=== PATIENT | female | born 1965 | race Caucasian/White ===

== ENCOUNTER 2016-11-13 14:07 | Emergency (ER) | payer SELFPAY ==
[~2016-11-13] VITALS: Ht 160 cm; Wt 76.2 kg
[~2016-11-13 14:07] MED LIST: ACYC200C PO; ALB0.5V IH; ALBU0.632 IH; ALBU2.5V4 IH; ALBUTEROL NEBULIZER; ALPR.25T PO; ALPR1T PO; ALPR1TAB7 PO; AMIT10TA6 PO; AMLO10TA2 PO; AMLO10TA4 PO; AMOX-355; ANTIDEPRESSANT; ARPZ20T PO; ATOR20TA66 PO; BLOOD PRESSURE PO; BUPR150T9 PO; CEPH500C PO; CHOL50003 PO; CIPR500T21 PO; CITA20TA4 PO; DESV100T PO; DOCU-143 PO; DULO60CA6 PO; FENO54TA PO; FRS325T PO; GABA-488 PO; HYDR-2890 PO; HYDR-3730 PO; HYDR-3812 PO; IBUP-1780 PO; LOSA25TA21 PO; LURA40TA PO; MAGN296S50 PO; MELA3TAB PO; METR500T PO; MOME13HF2 IH; NAPR220T76 PO; OMEP20TA7 PO; ONDA8TAB13 PO; PHEN100T17 PO; PROVENTIL INHALER; RT-ALBUINH IH; TRAZ-28 PO; VILA40TA PO; [UNRECOGNIZED DRUG - CODE]; [UNRECOGNIZED DRUG - OTHER]
[2016-11-13] MEDS ORDERED: NS IV 1000 ML 1,000 ML IV SCH (14:15)
[2016-11-13 14:21] LABS: BASOPHILS # (AUTO) 0.1 10^3/uL (0.0-0.1); BASOPHILS % (AUTO) 1 % (0-10); EOSINOPHILS # (AUTO) 0.4 10^3/uL (0.0-0.3); EOSINOPHILS % (AUTO) 3 % (0-10); LYMPHOCYTES # (AUTO) 3.6 X 10^3 (1.0-4.0); LYMPHOCYTES % (AUTO) 26 % (12-44); MEAN CORPUSCULAR HEMOGLOBIN 28 PG (25-34); MEAN CORPUSCULAR HGB CONC 33 G/DL (32-36); MEAN CORPUSCULAR VOLUME 83 FL (80-99); MEAN PLATELET VOLUME 9.6 FL (7.4-10.4); MONOCYTES # (AUTO) 0.9 X 10^3 (0.0-1.0); MONOCYTES % (AUTO) 7 % (0-12); NEUTROPHILS # (AUTO) 8.7 X 10^3 (1.8-7.8); NEUTROPHILS % (AUTO) 64 % (42-75); PLATELET COUNT 366 10^3/uL (130-400); RED BLOOD COUNT 5.64 10^6/uL (4.35-5.85); RED CELL DISTRIBUTION WIDTH 15.8 % (10.0-14.5); WHITE BLOOD COUNT 13.6 10^3/uL (4.3-11.0)
--- NOTE | 2016-11-13 14:28 | ED Psychosocial ---
General Stated Complaint: OVERDOSE Source: patient, EMS Exam Limitations: no limitations History of Present Illness Time seen by provider: 14:24 Initial Comments To ER crying and tearful with reports of an overdose as a suicide attempt last night. Patient states that she "doesn't want to be here anymore" and has felt this way for many months. She cannot elucidate any single factor that contributes to this. She denies any alcohol use. She states that she does have a history of depression and suicide attempt before. Last night, she took an unknown quantity (a handful) of atorvastatin, gabapentin, Combivent, possibly Benadryl. EMS was summoned by her friend. She does report that she's had a headache for several months. She states that her primary care provider has evaluated this but she has not had any CT or MRI. Timing/Duration: yesterday Severity: moderate Associated Symptoms: ingestion Allergies and Home Medications Allergies Coded Allergies: No Known Drug Allergies (Unverified , 01/31/16) Home Medications Albuterol Sulfate 6.7 Gm Hfa.aer.ad, 2 PUFF IH Q4H PRN for SHORTNESS OF BREATH, (Reported) Alprazolam 1 Mg Tablet, 1 MG PO BID PRN for ANXIETY, (Reported) Amlodipine Besylate 10 Mg Tablet, 10 MG PO HS, (Reported) Bupropion HCl 150 Mg Tablet.er, 300 MG PO DAILY, (Reported) Docusate Sodium 100 Mg Capsule, 100 MG PO BID, #60 Prescribed by: JOSE ANTONIO ORTIZ on 02/07/16 1038 Gabapentin 300 Mg Capsule, 300 MG PO TID, (Reported) TAKES 2 (300MG) CAPSULES Hydrocodone/Acetaminophen 1 Each Tablet, 1 TAB PO Q4H PRN, #30 Prescribed by: JOSE ANTONIO ORTIZ on 02/07/16 1038 Losartan Potassium 25 Mg Tablet, 25 MG PO BID, (Reported) Melatonin 3 Mg Tablet, 3 MG PO HS, (Reported) Mometasone/Formoterol 13 Gm Hfa.aer.ad, 1 PUFF IH DAILY PRN for SHORTNESS OF BREATH, (Reported) Omeprazole 20 Mg Tablet.dr, 20 MG PO DAILY, (Reported) [Albuterol Nebulizer] , (Reported) Constitutional: see HPI EENTM: see HPI Respiratory: no symptoms reported Cardiovascular: no symptoms reported Genitourinary: no symptoms reported Musculoskeletal: no symptoms reported Skin: no symptoms reported Psychiatric/Neurological: See HPI, Emotional Problems Past Hoyzdzi-Tbhvdz-Kslbmq Hx Patient Social History Type Used: Cigarettes Recent Hopitalizations: No Immunizations Up To Date Date of Pneumonia Vaccine: Apr 20, 2011 Seasonal Allergies Seasonal Allergies: No Surgeries HX Surgeries: Yes (5 surgeries left arm, SMALL BOWEL RESECTION) Surgeries: Abdominal, Gallbladder, Hysterectomy Respiratory Hx Respiratory Disorders: Yes Respiratory Disorders: COPD Cardiovascular Hx Cardiac Disorders: Yes Cardiac Disorders: Hypertension Neurological Hx Neurological Disorders: Yes Neurological Disorders: Headaches /Migraines Reproductive System Hx Reproductive Disorders: No Sexually Transmitted Disease: No HIV/AIDS: No Genitourinary Hx Genitourinary Disorders: No Gastrointestinal Hx Gastrointestinal Disorders: Yes (hernias) Gastrointestinal Disorders: Gastroesophageal Reflux Musculoskeletal Hx Musculoskeletal Disorders: Yes (RESTLESS LEG SYNDROME) Musculoskeletal Disorders: Arthritis, Chronic Back Pain Endocrine Hx Endocrine Disorders: No HEENT HX ENT Disorders: No (GLASSES, DENTURES) Loss of Vision: Bilateral Hearing Impairment: Denies Cancer Hx Cancer: No Psychosocial Hx Psychiatric Problems: Yes Behavioral Health Disorders: Depression Integumentary HX Skin/Integumentary Disorder: No Blood Transfusions Hx Blood Disorders: No Adverse Reaction to a Blood Tr: No Family Medical History Significant Family History: Cancer, Stroke, Vascular Disease Family Medial History: Asthma 19 FATHER G8 BROTHER G8 SISTER Completed stroke 19 FATHER Diabetes mellitus G8 SISTER FH: aneurysm 19 FATHER FH: stomach cancer 19 MOTHER FHx: drug dependence G8 BROTHER G8 SISTER Hypertension 19 FATHER 19 MOTHER Physical Exam Vital Signs Vital Sign - Last 12Hours 11/13/16 14:15 Temp 97.2 Pulse 92 Resp 10 B/P (MAP) 139/92 Pulse Ox 95 O2 Delivery Room Air Capillary Refill : General Appearance: WD/WN, no apparent distress HEENT: PERRL/EOMI, normal ENT inspection Neck: non-tender, full range of motion Respiratory: no respiratory distress, no accessory muscle use Cardiovascular: regular rate, rhythm, no murmur Gastrointestinal: normal bowel sounds, non tender, soft Extremities: normal range of motion, non-tender Neurologic/Psychiatric: alert, oriented x 3 Appearance/Memory: appropriate appearance, appropriate insight, disheveled Thoughts/Hallucinations: normal thought pattern, No delusions, No flight of ideas Skin: normal color, warm/dry Progress/Results/Core Measures Results/Orders Lab Results Laboratory Tests Test 11/13/16 14:10 11/13/16 16:00 Range/Units White Blood Count 13.6 H 4.3-11.0 10^3/uL Red Blood Count 5.64 4.35-5.85 10^6/uL Hemoglobin 15.5 11.5-16.0 G/DL Hematocrit 47 35-52 % Mean Corpuscular Volume 83 80-99 FL Mean Corpuscular Hemoglobin 28 25-34 PG Mean Corpuscular Hemoglobin Concent 33 32-36 G/DL Red Cell Distribution Width 15.8 H 10.0-14.5 % Platelet Count 366 130-400 10^3/uL Mean Platelet Volume 9.6 7.4-10.4 FL Neutrophils (%) (Auto) 64 42-75 % Lymphocytes (%) (Auto) 26 12-44 % Monocytes (%) (Auto) 7 0-12 % Eosinophils (%) (Auto) 3 0-10 % Basophils (%) (Auto) 1 0-10 % Neutrophils # (Auto) 8.7 H 1.8-7.8 X 10^3 Lymphocytes # (Auto) 3.6 1.0-4.0 X 10^3 Monocytes # (Auto) 0.9 0.0-1.0 X 10^3 Eosinophils # (Auto) 0.4 H 0.0-0.3 10^3/uL Basophils # (Auto) 0.1 0.0-0.1 10^3/uL Sodium Level 142 135-145 MMOL/L Potassium Level 3.8 3.6-5.0 MMOL/L Chloride Level 106 98-107 MMOL/L Carbon Dioxide Level 21 21-32 MMOL/L Anion Gap 15 H 5-14 MMOL/L Blood Urea Nitrogen 9 7-18 MG/DL Creatinine 0.67 0.60-1.30 MG/DL Estimat Glomerular Filtration Rate > 60 BUN/Creatinine Ratio 13 Glucose Level 107 H 70-105 MG/DL Calcium Level 9.9 8.5-10.1 MG/DL Total Bilirubin 0.3 0.1-1.0 MG/DL Aspartate Amino Transf (AST/SGOT) 15 5-34 U/L Alanine Aminotransferase (ALT/SGPT) 19 0-55 U/L Alkaline Phosphatase 78 40-136 U/L Total Protein 8.0 6.4-8.2 GM/DL Albumin 4.5 3.2-4.5 GM/DL Thyroid Stimulating Hormone (TSH) 1.50 0.35-4.94 UIU/ML Salicylates Level < 5.0 L 5.0-20.0 MG/DL Acetaminophen Level < 10 L 10-30 UG/ML Serum Alcohol 12 H <10 MG/DL Urine Color YELLOW Urine Clarity SLIGHTLY CLOUDY Urine pH 7 5-9 Urine Specific [place] 1.010 L 1.016-1.022 Urine Protein 1+ H NEGATIVE Urine Glucose (UA) NEGATIVE NEGATIVE Urine Ketones NEGATIVE NEGATIVE Urine Nitrite NEGATIVE NEGATIVE Urine Bilirubin NEGATIVE NEGATIVE Urine Urobilinogen NORMAL NORMAL MG/DL Urine Leukocyte Esterase NEGATIVE NEGATIVE Urine RBC (Auto) 1+ H NEGATIVE Urine RBC 2-5 H /HPF Urine WBC NONE /HPF Urine Squamous Epithelial Cells 0-2 /HPF Urine Crystals NONE /LPF Urine Bacteria TRACE /HPF Urine Casts NONE /LPF Urine Mucus NEGATIVE /LPF Urine Culture Indicated NO Urine Opiates Screen NEGATIVE NEGATIVE Urine Oxycodone Screen NEGATIVE NEGATIVE Urine Methadone Screen NEGATIVE NEGATIVE Urine Propoxyphene Screen NEGATIVE NEGATIVE Urine Barbiturates Screen NEGATIVE NEGATIVE Ur Tricyclic Antidepressants Screen NEGATIVE NEGATIVE Urine Phencyclidine Screen NEGATIVE NEGATIVE Urine Amphetamines Screen NEGATIVE NEGATIVE Urine Methamphetamines Screen NEGATIVE NEGATIVE Urine Benzodiazepines Screen NEGATIVE NEGATIVE Urine Cocaine Screen NEGATIVE NEGATIVE Urine Cannabinoids Screen NEGATIVE NEGATIVE My Orders Orders - YURIDIA OVERTON [employer] WORKER Cbc With Automated Diff (11/13/16 14:11) Comprehensive Metabolic Panel (11/13/16 14:11) Ua Culture If Indicated (11/13/16 14:11) Drug Screen Stat (Urine) (11/13/16 14:11) Acetaminophen (11/13/16 14:11) Alcohol (11/13/16 14:11) Ekg Tracing (11/13/16 14:11) Salicylate (11/13/16 14:11) Thyroid Stimulating Hormone (11/13/16 14:11) Ct Head Wo (11/13/16 14:11) Saline Lock/Iv-Start (11/13/16 14:11) Ns Iv 1000 Ml (Sodium Chloride 0.9%) (11/13/16 14:15) Ketorolac Injection (Toradol Injection) (11/13/16 16:45) Medications Given in ED Current Medications Medications Dose Ordered Sig/Ny Route Start Time Stop Time Status Last Admin Dose Admin Ketorolac Tromethamine 30 mg ONCE ONCE IVP 11/13/16 16:45 11/13/16 16:46 DC 11/13/16 17:00 30 MG Vital Signs/I&O Vital Sign - Last 12Hours 11/13/16 14:15 Temp 97.2 Pulse 92 Resp 10 B/P (MAP) 139/92 Pulse Ox 95 O2 Delivery Room Air Diagnostic Imaging Diagonstic Imaging: CT Comments NAME: BRANDEE GALDAMEZ [facility] REC#: [id number] PT STATUS: REG ER : 1965 PHYSICIAN: YURIDIA OVERTON APRN ADMIT DATE: 11/13/16/ER Draft Date of Exam:11/13/16 CT HEAD WO PROCEDURE: CT head without contrast. TECHNIQUE: Multiple contiguous axial images were obtained through the brain without the use of intravenous contrast. INDICATION: Headache for several months. CT HEAD: Multiple contiguous axial CT images of the head were obtained. FINDINGS: Ventricles and sulci are within normal limits for size. There is no intracranial hemorrhage identified. There is no abnormal mass effect or shift of midline structures. IMPRESSION: Unremarkable CT of the head. Dictated on workstation # [id number] Dict: 11/13/16 1439 Trans: 11/13/16 1443 [id number] Interpreted by: JELENA BRADEN MD Electronically signed by: Departure Communication Progress Notes 1632-[facility] does have inpatient female psych bed availability. The resident will call me back here in a bit. 183-Dr Acevedo psychiatric resident at [facility] accepts patient for transfer. 184-disharge with Harper Hopper and to [facility]. Impression Impression: Primary Impression: Depression Additional Impression: Suicide attempt Disposition: XF SHT-TRM HOSP Condition: Stable Departure-Patient Inst. Decision time for Depature: 16:32 Referrals: MARTY NAVAS DO (PCP) Primary Care Physician IOANA VILLATORO (Family) Primary Care Physician YURIDIA OVERTON APRN Nov 13, 2016 14:28
[2016-11-13 14:40] LABS: ALANINE AMINOTRANSFERASE 19 U/L (0-55); ALBUMIN 4.5 GM/DL (3.2-4.5); ALCOHOL 12 MG/DL (<10); ANION GAP 15 MMOL/L (5-14); ASPARTATE AMINO TRANSFERASE 15 U/L (5-34); BILIRUBIN,TOTAL 0.3 MG/DL (0.1-1.0); BLOOD UREA NITROGEN 9 MG/DL (7-18); BUN/CREATININE RATIO 13; CALCIUM 9.9 MG/DL (8.5-10.1); CARBON DIOXIDE 21 MMOL/L (21-32); CHLORIDE 106 MMOL/L (98-107); CREATININE SERUM 0.67 MG/DL (0.60-1.30); GFR ESTIMATED > 60; GLUCOSE 107 MG/DL (70-105); POTASSIUM 3.8 MMOL/L (3.6-5.0); SALICYLATE < 5.0 MG/DL (5.0-20.0); SODIUM 142 MMOL/L (135-145)
--- NOTE | 2016-11-13 14:44 | Diagnostic Imaging Report ---
PROCEDURE: CT head without contrast. TECHNIQUE: Multiple contiguous axial images were obtained through the brain without the use of intravenous contrast. INDICATION: Headache for several months. CT HEAD: Multiple contiguous axial CT images of the head were obtained. FINDINGS: Ventricles and sulci are within normal limits for size. There is no intracranial hemorrhage identified. There is no abnormal mass effect or shift of midline structures. IMPRESSION: Unremarkable CT of the head. Dictated by: Dictated on workstation # [id number]
[2016-11-13 14:51] LABS: ACETAMINOPHEN < 10 UG/ML (10-30)
[2016-11-13 16:06] LABS: BILIRUBIN,URINE NEGATIVE (NEGATIVE); KETONES,URINE NEGATIVE (NEGATIVE); LEUKOCYTE ESTERASE ,URINE NEGATIVE (NEGATIVE); NITRITE,URINE NEGATIVE (NEGATIVE); PH,URINE 7 (5-9); PROTEIN,URINE 1+ (NEGATIVE); UROBILINOGEN,URINE NORMAL (NORMAL)
[2016-11-13 16:14] LABS: SQUAMOUS EPITHELIAL CELL,UR 0-2 /HPF
[2016-11-13] MEDS ORDERED: KETOROLAC 30 MG/ML VIAL IVP ONE (16:45)
[2016-11-13 18:40] VITALS: BP 124/74
== END 2016-11-13 18:40 | disposition short-term general hospital (02) ==
LOC: EDUNIT# 14:07 → ER 14:08
DX: T42.6X2A Poisoning by other antiepileptic and sedative-hypnotic drugs, intentional self-harm, initial encounter (principal); T46.6X2A Poisoning by antihyperlipidemic and antiarteriosclerotic drugs, intentional self-harm, initial encounter; T48.6X2A Poisoning by antiasthmatics, intentional self-harm, initial encounter; F32.9 Major depressive disorder, single episode, unspecified; G25.81 Restless legs syndrome; M19.90 Unspecified osteoarthritis, unspecified site; K21.9 Gastro-esophageal reflux disease without esophagitis; G43.909 Migraine, unspecified, not intractable, without status migrainosus; J44.9 Chronic obstructive pulmonary disease, unspecified; I10 Essential (primary) hypertension; Z90.49 Acquired absence of other specified parts of digestive tract; Z90.710 Acquired absence of both cervix and uterus
CPT/HCPCS: 36415; 70450; 80053; 80306; 80320; 80329; 81000; 84443; 85025; 93005; 96361; 96374

== ENCOUNTER 2017-02-04 09:21 | Emergency (ER) | payer SELFPAY ==
[~2017-02-04] VITALS: Ht 157.5 cm; Wt 78.0 kg
--- OUTSIDE RECORDS SUMMARY | 2017-02-04 09:26 | XMS REPORT ---
Author Author IOANA VILLATORO [facility] eClinicalWorks Address Unknown Phone Unavailable Care Team Providers Care Executive Cyber Leader Name Role Phone IOANA VILLATORO Unavailable Allergies No Known Allergies Problems Problem Type Condition Code Onset Dates Condition Status Problem Insomnia G47.00 Active Problem Depression F32.9 Active Problem Torsion of intestine, bowel or colon K56.2 Active Problem Major depressive disorder, recurrent episode, moderate with anxious distress F33.1 Active Problem Anxiety F41.9 Active Problem COPD (chronic obstructive pulmonary disease) J44.9 Active Problem Restless legs G25.81 Active Problem Essential hypertension I10 Active Problem Constipation due to outlet dysfunction K59.02 Active Medications No Known Medications Results No Known Results Summary Purpose eClinicalWorks Submission
--- OUTSIDE RECORDS SUMMARY | 2017-02-04 09:27 | XMS REPORT ---
Author Author NILE MACEDO Organization [employer] Address Unknown Phone Unavailable Care Team Providers Care Mail Distribution Scheme Examiner Name Role Phone NILE MACEDO Unavailable Allergies No Known Allergies Problems Problem Type Condition Code Onset Dates Condition Status Problem Other and unspecified hyperlipidemia 272.4 Active Problem Other abnormal glucose 790.29 Active Problem Nausea with vomiting 787.01 Active Problem Candidiasis of vulva and vagina 112.1 Active Problem Pain in thoracic spine 724.1 Active Problem Depression, major, recurrent, moderate 296.32 Active Problem Counseling on substance use and abuse V65.42 Active Problem Polydipsia 783.5 Active Problem Influenza with other respiratory manifestations 487.1 Active Problem Essential hypertension, benign 401.1 Active Problem Acute gastritis without mention of hemorrhage 535.00 Active Problem Chronic airway obstruction, not elsewhere classified 496 Active Problem Headache 784.0 Active Problem Unspecified vitamin D deficiency 268.9 Active Problem Dehydration 276.51 Active Problem Unspecified iron deficiency anemia 280.9 Active Medications No Known Medications Results No Known Results Summary Purpose eClinicalWorks Submission
--- OUTSIDE RECORDS SUMMARY | 2017-02-04 09:28 | XMS REPORT ---
Author Author NILE MACEDO [facility] eClinicalWorks Address Unknown Phone Unavailable Care Team Providers Care Rectification Printer Name Role Phone NILE MACEDO Unavailable Allergies, Adverse Reactions, Alerts Substance Reaction Event Type N.K.D.A. Info Not Available Non Drug Allergy Problems Problem Type Condition Code Onset Dates [...] Active Problem Essential hypertension, benign 401.1 Active Assessment Recurrent major depression-severe F33.2 Active Assessment Generalized anxiety disorder F41.1 Active Problem Acute gastritis without mention of hemorrhage 535.00 Active Problem Chronic airway obstruction, not elsewhere classified 496 Active Problem Headache 784.0 Active Problem Unspecified vitamin D deficiency 268.9 Active Problem Dehydration 276.51 Active Problem Unspecified iron deficiency anemia 280.9 Active Medications Medication Code System Code Instructions Start Date End Date Status Dosage Albuterol Sulfate [facility] [address]-52 2.5 mg /3 mL (0.083 %) July 11, 2014 1 Each by Inhalation route every 4 hours for cough and wheeze PRN for wheezing or cough; Norvasc [facility] [address]-12 10 MG Orally Once a day 1 tablet Latuda [facility] [address]-44 20 MG Orally Once a day with food Feb 15, 2015 1 tablet with food Ibuprofen [facility] [address]-47 800 MG Orally Three times a day PRN Jan 25, 2015 1 tablet ProAir HFA [facility] [address]-78 90 mcg/actuation Apr 24, 2014 inhale 2 puffs by Inhalation route every 4 hours as needed PRN shortness of breath/ cough Melatonin [facility] [address]-19 3 MG Orally Once a day 1 tablet at bedtime as needed with food Cymbalta [facility] [address]-89 60 MG Orally Once a day 2 capsule2 Zithromax [facility] [address]-23 250 MG Orally Once a day Feb 12, 2015 Feb 17, 2015 2 tablets on the first day, then 1 tablet daily for 4 days Dulera [facility] [address]-83 100-5 mcg/actuation August 17, 2012 2 puffs by Inhalation route 2 times per day Xanax [facility] [address]-66 1 MG Orally 2 times a day PRN anxiety Mar 30, 2014 1 tablet Procedures Procedure Coding System Code Date MH Office Visit, Est Pt., Level 3 CPT-4 55564 Feb 15, 2015 Vital Signs Date/Time: Feb 15, 2015 Cardiac Monitoring Heart Rate 96 bpm Weight 181.7 lbs Height 62 in BMI 33.23 Index Blood Pressure Diastolic 84 mmHg Blood Pressure Systolic 122 mmHg Results No Known Results Summary Purpose eClinicalWorks Submission
--- OUTSIDE RECORDS SUMMARY | 2017-02-04 09:28 | XMS REPORT ---
Author Author SHAUNA IOANA Organization [facility] Address [address] [place] [address] Care Team Providers Care Pharmacy Technician Instructor Name Role Phone IOANA VILLATORO Unavailable PROBLEMS Type Condition ICD9-CM Code [id number] Code Onset Dates Condition Status SNOMED Code Problem Depression F32.9 Active 86663067 Problem Restless legs G25.81 Active 92156699 Problem Insomnia G47.00 Active 731176417 Assessment Gastroesophageal reflux disease without esophagitis K21.9 Dec, Active 264254185 Assessment Essential hypertension I10 Dec, Active 83863612 Problem Anxiety F41.9 Active 52874173 Problem Torsion of intestine, bowel or colon K56.2 Active 184953 Problem Constipation due to outlet dysfunction K59.02 Active 50666868 Problem COPD (chronic obstructive pulmonary disease) J44.9 Active 58115792 Problem Major depressive disorder, recurrent episode, moderate with anxious distress F33.1 Active 699536965 Problem Essential hypertension I10 Active 77974025 ALLERGIES Substance Reaction Event Type Date Status N.K.D.A. Unknown Non Drug Allergy Dec, Unknown SOCIAL HISTORY No smoking Hx information available PLAN OF CARE VITAL SIGNS Height 62 in 2015-12-27 Weight 175.2 lbs 2015-12-27 Heart Rate 96 bpm 2015-12-27 Respiratory Rate 22 2015-12-27 BMI 32.04 kg/m2 2015-12-27 Blood pressure systolic 177 mmHg 2015-12-27 Blood pressure diastolic 106 mmHg 2015-12-27 MEDICATIONS Medication Instructions Dosage Frequency Start Date End Date Duration Status Albuterol Sulfate 2.5 mg /3 mL (0.083 %) 1 Each by Inhalation route every 4 hours for cough and wheeze PRN for wheezing or cough; Jun, Active ProAir HFA 90 mcg/actuation inhale 2 puffs by Inhalation route every 4 hours as needed PRN shortness of breath/cough Apr, Active Ibuprofen 800 MG Orally Three times a day PRN 1 tablet Active Melatonin 3 MG Orally Once a day 1 tablet at bedtime as needed with food 24h Active Wellbutrin SR 150 MG Orally once a day for one week and then twice a day thereafter 1 tablet Dec, 30 day(s) Active Fleet Enema 7-19 GM/118ML as directed August, Active Norvasc 10 MG Orally Once a day 1 tablet 24h Active Dulera 100-5 mcg/actuation 2 puffs by Inhalation route 2 times per day Jul, Active Losartan Potassium 50 mg Orally Once a day 2 tablet 24h Dec, 30 day(s) Active Omeprazole 20 mg Orally twice a day 1 capsule 12h Active Xanax 1 MG Orally 2 times a day PRN anxiety 1 tablet Mar, Active Gabapentin 300 MG Orally Three times a day 1 capsule 8h May, Active RESULTS No Results PROCEDURES Procedure Date Ordered Related Diagnosis Body Site Office Visit, Est Pt., Level 4 Dec 27, 2015 IMMUNIZATIONS No Known Immunizations
--- OUTSIDE RECORDS SUMMARY | 2017-02-04 09:28 | XMS REPORT ---
Author Author SANNA SAUL Organization [employer] Address Unknown Phone Unavailable Care Team Providers Care Janitor Name Role Phone SANNA SAUL CP Unavailable Allergies No Known Allergies Problems Problem Type Condition Code Onset Dates Condition Status Problem Counseling on substance use and abuse V65.42 Active Problem Influenza with other respiratory manifestations 487.1 Active Problem Essential hypertension, benign 401.1 Active Problem Restless legs G25.81 Active Problem Insomnia G47.00 Active Problem COPD (chronic obstructive pulmonary disease) J44.9 Active Problem Candidiasis of vulva and vagina 112.1 Active Problem Pain in thoracic spine 724.1 Active Problem Depression F32.9 Active Problem Depression, major, recurrent, moderate 296.32 Active Problem Acute gastritis without mention of hemorrhage 535.00 Active Problem Chronic airway obstruction, not elsewhere classified 496 Active Problem Headache 784.0 Active Problem Dehydration 276.51 Active Problem Other and unspecified hyperlipidemia 272.4 Active Problem Nausea with vomiting 787.01 Active Problem Unspecified vitamin D deficiency 268.9 Active Problem Other abnormal glucose 790.29 Active Problem Unspecified iron deficiency anemia 280.9 Active Problem Polydipsia 783.5 Active Medications No Known Medications Results No Known Results Summary Purpose eClinicalWorks Submission
--- OUTSIDE RECORDS SUMMARY | 2017-02-04 09:28 | XMS REPORT ---
Author Author NILE MACEDO Organization [employer] Address Unknown Phone Unavailable Care Team Providers Care Cook Apprentice Name Role Phone NILE MACEDO Unavailable Allergies [...] Instructions Start Date End Date Status Dosage Xanax [facility] [address]-47 1 MG Orally 2 times a day PRN anxiety Mar 30, 2014 1 tablet Results No Known Results Summary Purpose eClinicalWorks Submission
--- OUTSIDE RECORDS SUMMARY | 2017-02-04 09:28 | XMS REPORT ---
Author Author SANNA SAUL [facility] eClinicalWorks Address Unknown Phone Unavailable Care Team Providers Care Diving Instructor Name Role Phone SANNA SAUL CP Unavailable Allergies, Adverse Reactions, Alerts Substance Reaction Event Type N.K.D.A. Info Not Available Non Drug Allergy Problems Problem Type Condition Code Onset Dates Condition Status Problem Counseling on substance use and abuse V65.42 Active Problem Influenza with other respiratory manifestations 487.1 Active Problem Essential hypertension, benign 401.1 Active Problem Restless legs G25.81 Active Assessment Recurrent major depression-severe F33.2 Active Problem Insomnia G47.00 Active Problem COPD [...] 280.9 Active Problem Polydipsia 783.5 Active Medications Medication Code System Code Instructions Start Date End Date Status Dosage Gabapentin [facility] [address]-96 300 MG Orally 2 times a day Mar 19, 2015 1 capsule Ibuprofen [facility] 68426626186 800 MG Orally Three times a day PRN 1 tablet Atorvastatin Calcium [facility] [address]-71 20 MG Orally Once a day Feb 23, 2015 1 tablet Xanax [facility] [address]-03 1 MG Orally 2 times a day PRN anxiety Mar 30, 2014 1 tablet Melatonin [facility] [address]-83 3 MG Orally Once a day 1 tablet at bedtime as needed with food ProAir HFA [facility] [address]-89 90 mcg/actuation Apr 24, 2014 inhale 2 puffs by Inhalation route every 4 hours as needed PRN shortness of breath/ cough Norvasc [facility] [address]-13 10 MG Orally Once a day 1 tablet Cymbalta [facility] [address]-39 60 MG Orally Once a day 2 capsule2 Latuda [facility] [address]-00 20 MG Orally Once a day with food Feb 15, 2015 1 tablet with food Dulera [facility] [address]-80 100-5 mcg/actuation August 17, 2012 2 puffs by Inhalation route 2 times per day Albuterol Sulfate [facility] [address]-34 2.5 mg /3 mL (0.083 %) July 11, 2014 1 Each by Inhalation route every 4 hours for cough and wheeze PRN for wheezing or cough; Procedures Procedure Coding System Code Date MH Office Visit, Est Pt., Level 4 CPT-4 80333 Mar 19, 2015 Vital Signs Date/Time: Mar 19, 2015 Blood Pressure Systolic 110 mmHg Weight 185 lbs Height 62 in BMI 33.83 Index Blood Pressure Diastolic 80 mmHg Results No Known Results Summary Purpose eClinicalWorks Submission
--- OUTSIDE RECORDS SUMMARY | 2017-02-04 09:28 | XMS REPORT ---
Author Author LYNN SOTO [facility] Address [address] [place] [address] Care Team Providers Care Integrity Specialist Name Role Phone LYNN SOTO Unavailable PROBLEMS Type Condition ICD9-CM Code YIS91-MC Code Onset Dates Condition Status SNOMED Code Problem Depression F32.9 Active 30546350 Assessment Major depressive disorder, recurrent episode, moderate with anxious distress F33.1 Dec, Active 582616791 Problem Major depressive disorder, recurrent episode, moderate with anxious distress F33.1 Active 736150697 Problem Essential hypertension I10 Active 08092543 Problem Restless legs G25.81 Active 68214236 Problem Insomnia G47.00 Active 755213073 Problem Constipation due to outlet dysfunction K59.02 Active 32170045 Problem COPD (chronic obstructive pulmonary disease) J44.9 Active 85262481 ALLERGIES Unknown Allergies SOCIAL HISTORY No smoking Hx information available PLAN OF CARE VITAL SIGNS MEDICATIONS Unknown Medications RESULTS No Results PROCEDURES Procedure Date Ordered Related Diagnosis Body Site Psychotherapy, patient &/family, 30 minutes, established patient Dec 26, 2015 IMMUNIZATIONS No Known Immunizations
--- OUTSIDE RECORDS SUMMARY | 2017-02-04 09:28 | XMS REPORT ---
Author IOANA Hays [facility] eClinicalWorks Address Unknown Phone Unavailable Care Team Providers Care Buyer Tobacco Head Name Role Phone IOANA VILLATORO CP Unavailable Allergies, Adverse Reactions, Alerts Substance Reaction Event Type N.K.D.A. Info Not Available Non Drug Allergy Problems Problem Type Condition Code Onset Dates Condition Status Problem Other abnormal glucose 790.29 Active Assessment HTN (hypertension) I10 Active Problem Polydipsia 783.5 Active Assessment Depression F32.9 Active Problem Counseling on substance use and abuse V65.42 Active Problem Influenza with other respiratory manifestations 487.1 Active Problem Essential hypertension, benign 401.1 Active Problem Restless legs G25.81 Active Problem Insomnia G47.00 Active Assessment COPD (chronic obstructive pulmonary disease) J44.9 Active Assessment Restless legs G25.81 Active Problem COPD (chronic obstructive pulmonary disease) J44.9 Active Assessment Insomnia G47.00 Active Problem Candidiasis of vulva and vagina [...] Unspecified vitamin D deficiency 268.9 Active Problem Unspecified iron deficiency anemia 280.9 Active Medications Medication Code System Code Instructions Start Date End Date Status Dosage Latuda [facility] [address]-29 20 MG Orally Once a day with food Feb 15, 2015 1 tablet with food Albuterol Sulfate [facility] [address]-81 2.5 mg /3 mL (0.083 %) July 11, 2014 1 Each by Inhalation route every 4 hours for cough and wheeze PRN for wheezing or cough; Melatonin [facility] [address]-54 3 MG Orally Once a day 1 tablet at bedtime as needed with food Xanax [facility] [address]-25 1 MG Orally 2 times a day PRN anxiety Mar 30, 2014 1 tablet Norvasc [facility] [address]-47 10 MG Orally Once a day 1 tablet Ibuprofen [facility] [address]-34 800 MG Orally Three times a day PRN Jan 25, 2015 1 tablet Dulera [facility] [address]-43 100-5 mcg/actuation August 17, 2012 2 puffs by Inhalation route 2 times per day Cymbalta [facility] [address]-00 60 MG Orally Once a day 2 capsule2 ProAir HFA [facility] [address]-23 90 mcg/actuation Apr 24, 2014 inhale 2 puffs by Inhalation route every 4 hours as needed PRN shortness of breath/ cough Procedures Procedure Coding System Code Date COMPREHEN METABOLIC PANEL CPT-4 28342 Feb 22, 2015 ASSAY THYROID STIM HORMONE CPT-4 47641 Feb 22, 2015 COMPLETE CBC W/AUTO DIFF WBC CPT-4 61592 Feb 22, 2015 Office Visit, Est Pt., Level 4 CPT-4 44483 Feb 22, 2015 LIPID PANEL CPT-4 20521 Feb 22, 2015 VENIPUNCT, ROUTINE* CPT-4 62601 Feb 22, 2015 Vital Signs Date/Time: Feb 22, 2015 Temperature 98.0 F Weight 179 lbs Height 62 in BMI 32.74 Index Blood Pressure Diastolic 78 mmHg Blood Pressure Systolic 124 mmHg Cardiac Monitoring Heart Rate 80 bpm Results Name Result Date Reference Range Unit Abnormality Flag CBC ROUTINE VENIPUNCTURE TSH ----TSH 1.320 [id number] 0.450-4.500 uIU/mL Summary Purpose eClinicalWorks Submission
--- OUTSIDE RECORDS SUMMARY | 2017-02-04 09:29 | XMS REPORT ---
Author IOANA [facility]ays [facility] [employer]ClinicalWorks Address Unknown Phone Unavailable Care Team Providers Care Health Care Facilities Inspector Name Role Phone IOANA VILLATORO Unavailable Allergies No Known Allergies Problems Problem Type Condition Code Onset Dates Condition Status Problem Restless legs G25.81 Active Problem Insomnia G47.00 Active Problem COPD (chronic obstructive pulmonary disease) J44.9 Active Problem Depression F32.9 Active Problem Depression, major, recurrent, moderate 296.32 Active Medications No Known Medications Results No Known Results Summary Purpose eClinicalWorks Submission
--- OUTSIDE RECORDS SUMMARY | 2017-02-04 09:29 | XMS REPORT ---
Author NESTOR [facility] eClinicalWorks Address Unknown Phone Unavailable Care Team Providers Care Printer Small Print Shop Name Role Phone NESTOR BLAIR Unavailable Allergies, Adverse Reactions, Alerts Substance Reaction [...] Problem Essential hypertension, benign 401.1 Active Assessment Low back pain M54.5 Active Assessment Shoulder pain, right M25.511 Active Problem Acute gastritis without mention of hemorrhage 535.00 Active Problem Chronic airway obstruction, not elsewhere classified 496 Active Problem Headache 784.0 Active Problem Unspecified vitamin D deficiency 268.9 Active Problem Dehydration 276.51 Active Problem Unspecified iron deficiency anemia 280.9 Active Medications Medication Code System Code Instructions Start Date End Date Status Dosage Melatonin [facility] [address]-29 3 MG Orally Once a day 1 tablet at bedtime as needed with food Cymbalta [facility] [address]-70 60 MG Orally Once a day 2 capsule2 Ibuprofen [facility] [address]-80 800 MG Orally Three times a day PRN Jan 25, 2015 1 tablet Dulera [facility] [address]-90 100-5 mcg/actuation August 17, 2012 2 puffs by Inhalation route 2 times per day Albuterol Sulfate [facility] [address]-93 2.5 mg /3 mL (0.083 %) July 11, 2014 1 Each by Inhalation route every 4 hours for cough and wheeze PRN for wheezing or cough; ProAir HFA [facility] [address]-05 90 mcg/actuation Apr 24, 2014 inhale 2 puffs by Inhalation route every 4 hours as needed PRN shortness of breath/ cough Xanax [facility] [address]-18 1 MG Orally 2 times a day PRN anxiety Mar 30, 2014 1 tablet Cyclobenzaprine HCl [facility] [address]-63 5 MG Orally 2 times a day PRN JanFeb 01, 2015 1 tablet Norvasc [facility] [address]-99 10 MG Orally Once a day 1 tablet Procedures Procedure Coding System Code Date X-RAY EXAM OF SHOULDER CPT-4 24768 Jan 25, 2015 Office Visit, Est Pt., Level 4 CPT-4 94690 Jan 25, 2015 X-RAY EXAM OF LOWER SPINE CPT-4 92402 Jan 25, 2015 Vital Signs Date/Time: Jan 25, 2015 Cardiac Monitoring Heart Rate 88 bpm Weight 180.9 lbs Height 62 in BMI 33.08 Index Blood Pressure Diastolic 84 mmHg Blood Pressure Systolic 116 mmHg Results No Known Results Summary Purpose eClinicalWorks Submission
--- OUTSIDE RECORDS SUMMARY | 2017-02-04 09:29 | XMS REPORT ---
Author Author IOANA VILLATORO Organization [facility] Address [address] [place] [address] Care Team Providers Care Chucking Lathe Operator Name Role Phone KAL VILLATOROE Unavailable PROBLEMS Type Condition ICD9-CM Code [id number] Code Onset Dates Condition Status SNOMED Code Problem Constipation due to outlet dysfunction K59.02 Active 91716600 Problem Major depressive disorder, recurrent episode, moderate with anxious distress F33.1 Active 207733679 Problem Essential hypertension I10 Active 28383295 Problem Insomnia G47.00 Active 151745062 Problem COPD (chronic obstructive pulmonary disease) J44.9 Active 12326438 Problem Depression F32.9 Active 77893382 Problem Restless legs G25.81 Active 88020625 Problem Generalized anxiety disorder F41.1 Active 05809112 Problem Psychophysiological insomnia F51.04 Active 174144620 Problem Anxiety F41.9 Active 51171256 Problem Torsion of intestine, bowel or colon K56.2 Active 216707 Problem Severe episode of recurrent major depressive disorder, without psychotic features F33.2 Active 06544968 Problem Gastroesophageal reflux disease with esophagitis K21.0 Active 288134767 ALLERGIES No Known Allergies SOCIAL HISTORY Never Assessed PLAN OF CARE Activity Details Follow Up 3 Months Reason:abdominal pain depression, htn VITAL SIGNS Height 62 in 2016-06-02 Weight 168 lbs 2016-06-02 Temperature 97.9 degrees Fahrenheit 2016-06-02 Heart Rate 90 bpm 2016-06-02 Respiratory Rate 18 2016-06-02 BMI 30.72 kg/m2 2016-06-02 Blood pressure systolic 140 mmHg 2016-06-02 Blood pressure diastolic 80 mmHg 2016-06-02 MEDICATIONS Medication Instructions Dosage Frequency Start Date End Date Duration Status Albuterol Sulfate 2.5 mg /3 mL (0.083 %) 1 Each by Inhalation route every 4 hours for cough and wheeze PRN for wheezing or cough; Jun, Active Cymbalta 60 mg Orally Once a day 1 capsule 24h May, 30 day(s) Active Gabapentin 300 MG Orally Three times a day 1 capsule 8h May, Active ProAir HFA 90 mcg/actuation inhale 2 puffs by Inhalation route every 4 hours as needed PRN shortness of breath/cough Apr, Active Atorvastatin Calcium 10 mg Orally Once a day 1 tablet 24h May, 90 days Active Omeprazole 20 mg Orally twice a day 1 capsule 12h Active Melatonin 3 MG Orally Once a day 1 tablet at bedtime as needed with food 24h Active Ibuprofen 800 MG Orally Three times a day PRN 1 tablet Active Dulera 100-5 mcg/actuation 2 puffs by Inhalation route 2 times per day Jul, Active Xanax 1 MG Orally 2 times a day PRN anxiety 1 tablet Mar, Active Wellbutrin SR 150 MG Orally once a day for one week and then twice a day thereafter 1 tablet Dec, Active MiraLax 17 gm/dose as directed May, Active Losartan Potassium 50 mg Orally Once a day 1tablet 24h Dec, Active RESULTS Name Result Date Reference Range CBC 2016-06-02 WBC 7.5 3.4-10.8 RBC 5.39 3.77-5.28 Hemoglobin 14.3 11.1-15.9 Hematocrit 42.4 34.0-46.6 MCV 79 79-97 MCH 26.5 26.6-33.0 MCHC 33.7 31.5-35.7 RDW 17.0 12.3-15.4 Platelets 321 150-379 Neutrophils 60 Lymphs 28 Monocytes 6 Eos 5 Basos 1 Neutrophils (Absolute) 4.6 1.4-7.0 Lymphs (Absolute) 2.1 0.7-3.1 Monocytes(Absolute) 0.4 0.1-0.9 Eos (Absolute) 0.4 0.0-0.4 Baso (Absolute) 0.0 0.0-0.2 Immature Granulocytes 0 Immature Grans (Abs) 0.0 0.0-0.1 LIPID PANEL 2016-06-02 Cholesterol, Total 178 100-199 Triglycerides 254 0-149 HDL Cholesterol 32 >39 VLDL Cholesterol Jaylon 51 5-40 LDL Cholesterol Calc 95 0-99 Comment: CMP 2016-06-02 Glucose, Serum 89 65-99 BUN 8 6-24 Creatinine, Serum 0.50 0.57-1.00 eGFR If NonAfricn Am 112 >59 eGFR If Africn Am 130 >59 BUN/Creatinine Ratio 16 9-23 Sodium, Serum 142 134-144 Potassium, Serum 4.3 3.5-5.2 Chloride, Serum 98 96-106 Carbon Dioxide, Total 25 18-29 Calcium, Serum 9.9 8.7-10.2 Protein, Total, Serum 6.9 6.0-8.5 Albumin, Serum 4.3 3.5-5.5 Globulin, Total 2.6 1.5-4.5 A/G Ratio 1.7 1.1-2.5 Bilirubin, Total 0.2 0.0-1.2 Alkaline Phosphatase, S 76 39-117 AST (SGOT) 12 0-40 ALT (SGPT) 15 0-32 Xray : KUB (IN HOUSE) 2016-06-02 PROCEDURES Procedure Date Ordered Result Body Site X-RAY EXAM OF ABDOMEN Jun 02, 2016 COMPLETE CBC W/AUTO DIFF WBC Jun 02, 2016 LIPID PANEL Jun 02, 2016 COMPREHEN METABOLIC PANEL Jun 02, 2016 VENIPUNCT, ROUTINE* Jun 02, 2016 IMMUNIZATIONS No Known Immunizations MEDICAL (GENERAL) HISTORY Type Description Date Medical History COPD Medical History Asthma Medical History Restless leg syndrome Medical History Major depressive disorder, single episode, unspecified Surgical History hysterectomy Surgical History orthopedic surgery left wrist x5 Surgical History cholecystectomy Surgical History Laproscopy 05/2015 Surgical History bowel resection 06/2015 Hospitalization History pneumonia Hospitalization History Surgery(s) Hospitalization History Holder Unit s/p overdose 11/14/16
--- OUTSIDE RECORDS SUMMARY | 2017-02-04 09:29 | XMS REPORT ---
Author Author IOANA VILLATORO Organization [facility] Address [address] [place] [address] Care Team Providers Care Manager Project Name Role Phone KAL VILLATOROE Unavailable PROBLEMS Type Condition ICD9-CM Code [id number] Code Onset Dates Condition Status SNOMED Code Problem Constipation due to outlet dysfunction K59.02 Active 42258549 Problem Major depressive disorder, recurrent episode, moderate with anxious distress F33.1 Active 390126830 Problem Essential hypertension I10 Active 90790877 Problem Insomnia G47.00 Active 289407237 Problem COPD (chronic obstructive pulmonary disease) J44.9 Active 92241869 Problem Depression F32.9 Active 12279010 Problem Restless legs G25.81 Active 67791077 Problem Generalized anxiety disorder F41.1 Active 47560092 Problem Psychophysiological insomnia F51.04 Active 588241163 Problem Anxiety F41.9 Active 05545043 Problem Torsion of intestine, bowel or colon K56.2 Active 565184 Problem Severe episode of recurrent major depressive disorder, without psychotic features F33.2 Active 06962850 Problem Gastroesophageal reflux disease with esophagitis K21.0 Active 952790818 ALLERGIES No Information SOCIAL HISTORY Never Assessed PLAN OF CARE VITAL SIGNS MEDICATIONS Medication Instructions Dosage Frequency Start Date End Date Duration Status Xanax 1 MG Orally 2 times a day PRN anxiety 1 tablet 11 Mar, 2014 28 days Active Omeprazole 20 mg Orally twice a day 1 capsule 12h 28 days Active RESULTS No Results PROCEDURES No Known procedures IMMUNIZATIONS No Known Immunizations MEDICAL (GENERAL) HISTORY [...]
--- OUTSIDE RECORDS SUMMARY | 2017-02-04 09:29 | XMS REPORT ---
Author IOANA Hays Organization eClinicalWorks Address Unknown Phone Unavailable Care Team Providers Care Medical Record Specialist Name Role Phone IOANA VILLATORO CP Unavailable Allergies No Known Allergies Problems Problem Type Condition Code Onset Dates Condition Status Problem Counseling on substance use and abuse V65.42 Active Problem Influenza with other respiratory manifestations 487.1 Active Problem Essential hypertension, benign 401.1 Active Problem Restless legs G25.81 Active Assessment Hyperlipemia E78.5 Active Problem Insomnia G47.00 Active Assessment High blood pressure I10 Active Problem COPD (chronic obstructive pulmonary disease) [...] Instructions Start Date End Date Status Dosage Atorvastatin Calcium [facility] [address]-98 20 MG Orally Once a day Feb 23, 2015 1 tablet Results No Known Results Summary Purpose eClinicalWorks Submission
--- OUTSIDE RECORDS SUMMARY | 2017-02-04 09:29 | XMS REPORT ---
Author JOMAR Tamez [facility] eClinicalWorks Address Unknown Phone Unavailable Care Team Providers Care Plant Safety Engineer Name Role Phone JOMAR FAGAN CP Unavailable Allergies, Adverse Reactions, Alerts Substance [...] Problem Essential hypertension, benign 401.1 Active Assessment Bronchitis J40 Active Problem Acute gastritis without mention of hemorrhage 535.00 Active Problem Chronic airway obstruction, not elsewhere classified 496 Active Problem Headache 784.0 Active Problem Unspecified vitamin D deficiency 268.9 Active Problem Dehydration 276.51 Active Problem Unspecified iron deficiency anemia 280.9 Active Medications Medication Code System Code Instructions Start Date End Date Status Dosage ProAir HFA [facility] [address]-28 90 mcg/actuation Apr 24, 2014 inhale 2 puffs by Inhalation route every 4 hours as needed PRN shortness of breath/ cough Norvasc [facility] [address]-43 10 MG Orally Once a day 1 tablet Zithromax [facility] [address]-75 250 MG Orally Once a day Feb 12, 2015 Feb 17, 2015 2 tablets on the first day, then 1 tablet daily for 4 days Cymbalta [facility] [address]-91 60 MG Orally Once a day 2 capsule2 Albuterol Sulfate [facility] [place] [address]-20 2.5 mg /3 mL (0.083 %) July 11, 2014 1 Each by Inhalation route every 4 hours for cough and wheeze PRN for wheezing or cough; Melatonin [facility] [place] [address]-55 3 MG Orally Once a day 1 tablet at bedtime as needed with food Zofran [facility] [address]-23 4 MG Orally q 4h Feb 12, 2015 2 tablets Ibuprofen [facility] [address]-96 800 MG Orally Three times a day PRN Jan 25, 2015 1 tablet Xanax [facility] [address]-37 1 MG Orally 2 times a day PRN anxiety Mar 30, 2014 1 tablet Dulera [facility] [address]-08 100-5 mcg/actuation August 17, 2012 2 puffs by Inhalation route 2 times per day Procedures Procedure Coding System Code Date INFLUENZA ASSAY W/OPTIC CPT-4 70045 Feb 12, 2015 Office Visit, Est Pt., Level 4 CPT-4 16702 Feb 12, 2015 CHEST X-RAY CPT-4 53312 Feb 12, 2015 THER/PROPH/DIAG INJ, SC/IM CPT-4 87874 Feb 12, 2015 ZOFRAN (IM) 2 MG/ML (PER 1 MG) 40 MG/20 ML CPT-4 J2405 Feb 12, 2015 Vital Signs Date/Time: Feb 12, 2015 Temperature 98.0 F Weight 176 lbs Height 62 in BMI 32.19 Index Blood Pressure Diastolic 78 mmHg Blood Pressure Systolic 120 mmHg Cardiac Monitoring Heart Rate 90 bpm Results Name Result Date Reference Range Unit Abnormality Flag INFLUENZA A & B (IN HOUSE) Summary Purpose eClinicalWorks Submission
--- OUTSIDE RECORDS SUMMARY | 2017-02-04 09:30 | XMS REPORT ---
Author Author SHAUNA IOANA Organization [facility] Address [address] [place] [address] Care Team Providers Care Central Communications Specialist Name Role Phone IOANA VILLATORO Unavailable PROBLEMS Type Condition ICD9-CM Code [id number] Code Onset Dates Condition Status SNOMED Code Problem Depression F32.9 Active 67269572 Problem Restless legs G25.81 Active 15796880 Problem Insomnia G47.00 Active 302240394 Assessment Gastroesophageal reflux disease with esophagitis K21.0 Dec Active 792586091 Assessment Essential hypertension I10 Dec, Active 39296997 Problem Anxiety F41.9 Active 67020024 Problem Torsion of intestine, bowel or colon K56.2 Active 042525 Problem Constipation due to outlet dysfunction K59.02 Active 43053560 Problem COPD (chronic obstructive pulmonary disease) J44.9 Active 20169428 Problem Major depressive disorder, recurrent episode, moderate with anxious distress F33.1 Active 477304557 Problem Essential hypertension I10 Active 88747705 ALLERGIES Substance Reaction Event Type Date Status N.K.D.A. Unknown Non Drug Allergy Dec, Unknown SOCIAL HISTORY No smoking Hx information available PLAN OF CARE VITAL SIGNS Height 62 in 2016-01-08 Weight 178.8 lbs 2016-01-08 Heart Rate 94 bpm 2016-01-08 Respiratory Rate 20 2016-01-08 BMI 32.70 kg/m2 2016-01-08 Blood pressure systolic 146 mmHg 2016-01-08 Blood pressure diastolic 88 mmHg 2016-01-08 MEDICATIONS Medication Instructions Dosage Frequency Start Date End Date Duration Status Gabapentin 300 MG Orally Three times a day 1 capsule 8h May, Active ProAir HFA 90 mcg/actuation inhale 2 puffs by Inhalation route every 4 hours as needed PRN shortness of breath/cough Apr, Active Albuterol Sulfate 2.5 mg /3 mL (0.083 %) 1 Each by Inhalation route every 4 hours for cough and wheeze PRN for wheezing or cough; Jun, Active Xanax 1 MG Orally 2 times a day PRN anxiety 1 tablet Mar, Active Dulera 100-5 mcg/actuation 2 puffs by Inhalation route 2 times per day Jul, Active Omeprazole 20 mg Orally twice a day 1 capsule 12h Active Melatonin 3 MG Orally Once a day 1 tablet at bedtime as needed with food 24h Active Ibuprofen 800 MG Orally Three times a day PRN 1 tablet Active Losartan Potassium 50 mg Orally Once a day 2 tablet 24h Dec, Active Wellbutrin SR 150 MG Orally once a day for one week and then twice a day thereafter 1 tablet Dec, Active RESULTS No Results PROCEDURES Procedure Date Ordered Related Diagnosis Body Site Office Visit, Est Pt., Level 4 Jan 08, 2016 IMMUNIZATIONS No Known Immunizations
--- OUTSIDE RECORDS SUMMARY | 2017-02-04 09:30 | XMS REPORT ---
Author IOANA Hays [facility] eClinicalWorks Address Unknown Phone Unavailable Care Team Providers Care Buckle Sorter Name Role Phone IOANA VILLATORO CP Unavailable Allergies, Adverse Reactions, Alerts Substance Reaction Event Type N.K.D.A. Info Not Available Non Drug Allergy Problems Problem Type Condition Code Onset Dates Condition Status Problem Counseling on substance use and abuse V65.42 Active Problem Influenza with other respiratory manifestations 487.1 Active Problem Essential hypertension, benign 401.1 Active Problem Restless legs G25.81 Active Assessment Cellulitis L03.90 Active Problem Insomnia G47.00 Active Problem COPD [...] Instructions Start Date End Date Status Dosage Dulera [facility] [address]-29 100-5 mcg/actuation August 17, 2012 2 puffs by Inhalation route 2 times per day Norvasc [facility] [address]-79 10 MG Orally Once a day 1 tablet ProAir HFA [facility] [address]-24 90 mcg/actuation Apr 24, 2014 inhale 2 puffs by Inhalation route every 4 hours as needed PRN shortness of breath/ cough Atorvastatin Calcium [facility] [address]-14 20 MG Orally Once a day Feb 23, 2015 1 tablet Gabapentin [facility] [address]-79 300 MG Orally 2 times a day Mar 19, 2015 1 capsule Xanax [facility] [address]-02 1 MG Orally 2 times a day PRN anxiety Mar 30, 2014 1 tablet Latuda [facility] [address]-54 20 MG Orally Once a day with food Feb 15, 2015 1 tablet with food Ibuprofen [facility] 90028634650 800 MG Orally Three times a day PRN 1 tablet Sulfamethoxazole-Trimethoprim [facility] [address]-15 800-160 MG Orally Twice a day Apr 03, 2015 Apr 13, 2015 1 tablet Melatonin [facility] [address]-40 3 MG Orally Once a day 1 tablet at bedtime as needed with food Cymbalta [facility] [address]-75 60 MG Orally Once a day 2 capsule2 Bactroban [facility] [address]-17 2 % Externally 2 times a day Apr 03, 2015 1 application to affected area Albuterol Sulfate [facility] [address]-35 2.5 mg /3 mL (0.083 %) July 11, 2014 1 Each by Inhalation route every 4 hours for cough and wheeze PRN for wheezing or cough; Procedures Procedure Coding System Code Date Office Visit, Est Pt., Level 3 CPT-4 42752 Apr 03, 2015 Vital Signs Date/Time: Apr 03, 2015 Temperature 98.0 F Weight 185 lbs Height 62 in BMI 33.83 Index Blood Pressure Diastolic 78 mmHg Blood Pressure Systolic 112 mmHg Cardiac Monitoring Heart Rate 88 bpm Results No Known Results Summary Purpose eClinicalWorks Submission
[2017-02-04 10:06] LABS: BASOPHILS # (AUTO) 0.1 10^3/uL (0.0-0.1); BASOPHILS % (AUTO) 1 % (0-10); EOSINOPHILS # (AUTO) 0.5 10^3/uL (0.0-0.3); EOSINOPHILS % (AUTO) 5 % (0-10); LYMPHOCYTES # (AUTO) 2.5 X 10^3 (1.0-4.0); LYMPHOCYTES % (AUTO) 26 % (12-44); MEAN CORPUSCULAR HEMOGLOBIN 27 PG (25-34); MEAN CORPUSCULAR HGB CONC 33 G/DL (32-36); MEAN CORPUSCULAR VOLUME 83 FL (80-99); MEAN PLATELET VOLUME 9.5 FL (7.4-10.4); MONOCYTES # (AUTO) 0.7 X 10^3 (0.0-1.0); MONOCYTES % (AUTO) 8 % (0-12); NEUTROPHILS # (AUTO) 5.9 X 10^3 (1.8-7.8); NEUTROPHILS % (AUTO) 61 % (42-75); PLATELET COUNT 377 10^3/uL (130-400); RED BLOOD COUNT 5.13 10^6/uL (4.35-5.85); RED CELL DISTRIBUTION WIDTH 14.9 % (10.0-14.5); WHITE BLOOD COUNT 9.7 10^3/uL (4.3-11.0)
[2017-02-04 10:16] LABS: PROTHROMBIN TIME PATIENT 13.2 SEC (12.2-14.7)
[2017-02-04 10:25] LABS: ALANINE AMINOTRANSFERASE 13 U/L (0-55); ALBUMIN 3.9 GM/DL (3.2-4.5); ANION GAP 10 MMOL/L (5-14); ASPARTATE AMINO TRANSFERASE 9 U/L (5-34); BILIRUBIN,TOTAL 0.2 MG/DL (0.1-1.0); BLOOD UREA NITROGEN 5 MG/DL (7-18); BUN/CREATININE RATIO 8; CALCIUM 9.1 MG/DL (8.5-10.1); CARBON DIOXIDE 24 MMOL/L (21-32); CHLORIDE 106 MMOL/L (98-107); GFR ESTIMATED > 60; GLUCOSE 85 MG/DL (70-105); POTASSIUM 3.6 MMOL/L (3.6-5.0); SODIUM 140 MMOL/L (135-145); TOTAL PROTEIN 7.3 GM/DL (6.4-8.2)
--- NOTE | 2017-02-04 10:35 | Diagnostic Imaging Report ---
Portable upright radiograph of the chest. INDICATION: Cough. FINDINGS: The lungs are clear. The heart size is normal. No effusion or pneumothorax. The mediastinum and michael appear unremarkable. IMPRESSION: Unremarkable exam. Dictated by: Dictated on workstation # [id number]
[2017-02-04 10:36] LABS: BILIRUBIN,URINE NEGATIVE (NEGATIVE); KETONES,URINE NEGATIVE (NEGATIVE); LEUKOCYTE ESTERASE ,URINE 1+ (NEGATIVE); NITRITE,URINE NEGATIVE (NEGATIVE); PH,URINE 7 (5-9); PROTEIN,URINE 2+ (NEGATIVE); UROBILINOGEN,URINE 1 MG/DL (NORMAL)
[2017-02-04 10:50] LABS: WBC,URINE 0-2 /HPF
--- NOTE | 2017-02-04 11:06 | ED Cough/URI ---
General Chief Complaint: Cough/Cold/Flu Symptoms Stated Complaint: CONGESTION,FEVER,N/V Nursing Triage Note: ARRIVED VIA AMB TO ROOM 10. COMPLAINS OF COLD/COUGH/FEVER X1 WEEK ET VOMITED ONCE THIS AM. Source: patient Exam Limitations: no limitations History of Present Illness Time seen by provider: 11:02 Initial Comments The patient reports that she began to have symptoms on Tuesday 01/30. Initially there was muscle aching and a cough. It has gotten worse as the days went by she has been taking some Tylenol and Motrin and in addition some NyQuil with some apparent effect. She states that last night she ran a fever to 103. When she got up this morning she thought she could go to work however idea quickly passed. She is a smoker. She states she has been unable or unwilling to smoke much the past 3 days. She has produced thick sputum. Timing/Duration: week, getting worse Severity/Quality: productive cough Prior Episodes/Possible Cause: occasional episodes Modifying Factors: Improves With Activity, Improves With Coughing, Improves With Lying Down, Improves With Rest Associated Symptoms: fever/chills, muscle aches Allergies and Home Medications Allergies Coded Allergies: No Known Drug Allergies (Unverified , 01/31/16) Home Medications Albuterol Sulfate 6.7 Gm Hfa.aer.ad, 2 PUFF IH Q4H PRN for SHORTNESS OF BREATH, (Reported) Alprazolam 1 Mg Tablet, 1 MG PO BID PRN for ANXIETY, (Reported) Amlodipine Besylate 10 Mg Tablet, 10 MG PO HS, (Reported) Bupropion HCl 150 Mg Tablet.er, 300 MG PO DAILY, (Reported) Docusate Sodium 100 Mg Capsule, 100 MG PO BID, #60 Prescribed by: JOSE ANTONIO ORTIZ on 02/07/16 1038 Gabapentin 300 Mg Capsule, 300 MG PO TID, (Reported) TAKES 2 (300MG) CAPSULES Hydrocodone/Acetaminophen 1 Each Tablet, 1 TAB PO Q4H PRN, #30 Prescribed by: JOSE ANTONIO ORTIZ on 02/07/16 1038 Losartan Potassium 25 Mg Tablet, 25 MG PO BID, (Reported) Melatonin 3 Mg Tablet, 3 MG PO HS, (Reported) Mometasone/Formoterol 13 Gm Hfa.aer.ad, 1 PUFF IH DAILY PRN for SHORTNESS OF BREATH, (Reported) Omeprazole 20 Mg Tablet.dr, 20 MG PO DAILY, (Reported) [Albuterol Nebulizer] , (Reported) Constitutional: see HPI EENTM: hoarseness, nose congestion, throat pain Respiratory: cough, dyspnea on exertion, phlegm, short of breath, wheezing Cardiovascular: no symptoms reported Gastrointestinal: no symptoms reported Genitourinary: no symptoms reported Musculoskeletal: muscle pain Skin: no symptoms reported Psychiatric/Neurological: No Symptoms Reported Hematologic/Lymphatic: No Symptoms Reported Immunological/Allergic: no symptoms reported Past Qocovuc-Ztpsnz-Uggerh Hx Patient Social History Alcohol Use: Denies Use Recreational Drug Use: No Smoking Status: Current Everyday Smoker Type Used: Cigarettes 2nd Hand Smoke Exposure: Yes Recent Foreign Travel: No Contact w/Someone Who Travel: No Recent Infectious Disease Expo: No Recent Hopitalizations: No Immunizations Up To Date Date of Pneumonia Vaccine: Apr 20, 2011 Seasonal Allergies Seasonal Allergies: No Surgeries History of Surgeries: Yes (5 surgeries left arm, SMALL BOWEL RESECTION) Surgeries: Abdominal, Gallbladder, Hysterectomy Respiratory History of Respiratory Disorde: Yes Respiratory Disorders: COPD Currently Using CPAP: No Currently Using BIPAP: No Cardiovascular History of Cardiac Disorders: Yes Cardiac Disorders: Hypertension Neurological History of Neurological Disord: Yes Neurological Disorders: Headaches /Migraines Reproductive System Hx Reproductive Disorders: No Sexually Transmitted Disease: No HIV/AIDS: No Gastrointestinal History of Gastrointestinal Di: Yes (hernias) Gastrointestinal Disorders: Gastroesophageal Reflux Musculoskeletal History of Musculoskeletal Dis: Yes (RESTLESS LEG SYNDROME) Musculoskeletal Disorders: Arthritis, Chronic Back Pain Endocrine History of Endocrine Disorders: No HEENT Loss of Vision: Bilateral Hearing Impairment: Denies Cancer History of Cancer: No Psychosocial History of Psychiatric Problem: Yes Behavioral Health Disorders: Depression Integumentary History of Skin or Integumenta: No Blood Transfusions History of Blood Disorders: No Adverse Reaction to a Blood Tr: No Family Medical History Significant Family History: Cancer, Stroke, Vascular Disease Family Medial History: Asthma 19 FATHER G8 BROTHER G8 SISTER Completed stroke 19 FATHER Diabetes mellitus G8 SISTER FH: aneurysm 19 FATHER FH: stomach cancer 19 MOTHER FHx: drug dependence G8 BROTHER G8 SISTER Hypertension 19 FATHER 19 MOTHER Physical Exam Vital Signs Vital Sign - Last 12Hours 02/04/17 09:41 Temp 96.8 Pulse 93 Resp 18 B/P (MAP) 174/106 Pulse Ox 96 Capillary Refill : Less Than 3 Seconds General Appearance: other (54-year-old white female who appears older than stated age) Eyes: Bilateral Eye Normal Inspection HEENT: normal ENT inspection, other (tongue is coated and dry) Neck: non-tender, full range of motion, supple, normal inspection, carotid bruit Respiratory: decreased breath sounds (distant) Cardiovascular: normal peripheral pulses, regular rate, rhythm, no edema, no gallop, no JVD, no murmur Gastrointestinal: normal bowel sounds, non tender, soft, no organomegaly, no pulsatile mass Extremities: normal range of motion, non-tender, normal inspection, no pedal edema, no calf tenderness, normal capillary refill, pelvis stable Neurologic/Psychiatric: benzene operator II-XII nml as tested, no motor/sensory deficits, alert, normal mood/affect, oriented x 3 Skin: normal color, warm/dry, cyanosis, cool, diaphoresis, damp Lymphatic: no adenopathy Focused Exam Evaluation Lactate Level Laboratory Tests 02/04/17 10:00: Lactic Acid Level 1.04 Lactic Acid Level Laboratory Tests Test 02/04/17 10:00 Lactic Acid Level 1.04 MMOL/L (0.50-2.00) Progress/Results/Core Measures Results/Orders Lab Results Laboratory Tests Test 02/04/17 10:00 02/04/17 10:26 Range/Units White Blood Count 9.7 4.3-11.0 10^3/uL Red Blood Count 5.13 4.35-5.85 10^6/uL Hemoglobin 13.9 11.5-16.0 G/DL Hematocrit 43 35-52 % Mean Corpuscular Volume 83 80-99 FL Mean Corpuscular Hemoglobin 27 25-34 PG Mean Corpuscular Hemoglobin Concent 33 32-36 G/DL Red Cell Distribution Width 14.9 H 10.0-14.5 % Platelet Count 377 130-400 10^3/uL Mean Platelet Volume 9.5 7.4-10.4 FL Neutrophils (%) (Auto) 61 42-75 % Lymphocytes (%) (Auto) 26 12-44 % Monocytes (%) (Auto) 8 0-12 % Eosinophils (%) (Auto) 5 0-10 % Basophils (%) (Auto) 1 0-10 % Neutrophils # (Auto) 5.9 1.8-7.8 X 10^3 Lymphocytes # (Auto) 2.5 1.0-4.0 X 10^3 Monocytes # (Auto) 0.7 0.0-1.0 X 10^3 Eosinophils # (Auto) 0.5 H 0.0-0.3 10^3/uL Basophils # (Auto) 0.1 0.0-0.1 10^3/uL Prothrombin Time 13.2 12.2-14.7 SEC INR Comment 1.0 0.8-1.4 Activated Partial Thromboplast Time 33 24-35 SEC Sodium Level 140 135-145 MMOL/L Potassium Level 3.6 3.6-5.0 MMOL/L Chloride Level 106 98-107 MMOL/L Carbon Dioxide Level 24 21-32 MMOL/L Anion Gap 10 5-14 MMOL/L Blood Urea Nitrogen 5 L 7-18 MG/DL Creatinine 0.60 0.60-1.30 MG/DL Estimat Glomerular Filtration Rate > 60 BUN/Creatinine Ratio 8 Glucose Level 85 70-105 MG/DL Lactic Acid Level 1.04 0.50-2.00 MMOL/L Calcium Level 9.1 8.5-10.1 MG/DL Total Bilirubin 0.2 0.1-1.0 MG/DL Aspartate Amino Transf (AST/SGOT) 9 5-34 U/L Alanine Aminotransferase (ALT/SGPT) 13 0-55 U/L Alkaline Phosphatase 82 40-136 U/L Total Protein 7.3 6.4-8.2 GM/DL Albumin 3.9 3.2-4.5 GM/DL Urine Color DON H Urine Clarity CLEAR Urine pH 7 5-9 Urine Specific [place] 1.005 L 1.016-1.022 Urine Protein 2+ H NEGATIVE Urine Glucose (UA) NEGATIVE NEGATIVE Urine Ketones NEGATIVE NEGATIVE Urine Nitrite NEGATIVE NEGATIVE Urine Bilirubin NEGATIVE NEGATIVE Urine Urobilinogen 1 NORMAL MG/DL Urine Leukocyte Esterase 1+ H NEGATIVE Urine RBC (Auto) 1+ H NEGATIVE Urine RBC NONE /HPF Urine WBC 0-2 /HPF Urine Squamous Epithelial Cells 5-10 /HPF Urine Crystals NONE /LPF Urine Bacteria NEGATIVE /HPF Urine Casts NONE /LPF Urine Mucus NEGATIVE /LPF Urine Culture Indicated NO Micro Results Microbiology 02/04/17 Influenza Types A,B Antigen (MOISE) - Final, Complete Vital Signs/I&O Vital Sign - Last 12Hours 02/04/17 09:41 Temp 96.8 Pulse 93 Resp 18 B/P (MAP) 174/106 Pulse Ox 96 Blood Pressure Mean: 128 Departure Impression Impression: Primary Impression: viral upper respiratory infection Disposition: 01 HOME, SELF-CARE Condition: Stable/Unchanged Departure-Patient Inst. Decision time for Depature: 11:09 Referrals: MARTY NAVAS DO (PCP) Primary Care Physician IOANA VILLATORO (Family) Primary Care Physician Patient Instructions: Cough, Adult (DC) Add. Discharge Instructions: All discharge instructions reviewed with patient and/or family. Voiced understanding. Extra rest Lots of liquids No smoking Tylenol or ibuprofen for fever. The dose would be Tylenol 1 g every 6 hours or ibuprofen 600 mg every 6 hours. If fever is greater than 102 ibuprofen will be a better choice. Cough medicine of choice TERRELL SANTOS MD Feb 04, 2017 11:06
[2017-02-04 11:39] VITALS: BP 151/102
== END 2017-02-04 11:39 | disposition home or self-care (01) ==
LOC: EDUNIT# 09:21 → ER 09:23
DX: J06.9 Acute upper respiratory infection, unspecified (principal); F32.9 Major depressive disorder, single episode, unspecified; K21.9 Gastro-esophageal reflux disease without esophagitis; G43.909 Migraine, unspecified, not intractable, without status migrainosus; I10 Essential (primary) hypertension; J44.9 Chronic obstructive pulmonary disease, unspecified; F17.210 Nicotine dependence, cigarettes, uncomplicated; Z90.710 Acquired absence of both cervix and uterus; Z80.0 Family history of malignant neoplasm of digestive organs; Z82.49 Family history of ischemic heart disease and other diseases of the circulatory system
CPT/HCPCS: 36415; 71010; 80053; 81000; 83605; 85025; 85610; 85730; 87040; 87804

== ENCOUNTER → 2017-05-08 | Outpatient (CLI) | payer SELFPAY ==
[~2017-05-08] MED LIST changes: +ACHD5005 PO; -HYDR-3812 PO
--- NOTE | 2017-05-08 15:48 | Diagnostic Imaging Report ---
PROCEDURE: MRI lumbar spine. TECHNIQUE: Multiplanar, multisequence MRI of the lumbar spine was performed without contrast. INDICATION: Low back pain, bilateral leg numbness. No prior studies are available for comparison. FINDINGS: Curvature and alignment of the lumbar spine is normal. The vertebral body heights are well maintained. The marrow signal intensity is normal. No geographic marrow lesion or acute compression fracture is seen. There is fairly normal height and signal intensity to the lumbar intervertebral discs. The conus medullaris is unremarkable at the T12-L1 level. No focal disc protrusion is identified. There is some ligamentous thickening identified at L3-L4, L4-L5 and L5-S1 levels. This does create some trefoil configuration to the thecal sac at the L3-L4 and L4-L5 levels. There are also hypertrophic facet changes present throughout the lumbar spine. No significant neuroforaminal stenosis is identified. Paraspinous tissues are unremarkable apart from a probable tiny cyst in the upper pole of right kidney. IMPRESSION: Lumbar spondylosis and facet arthropathy with mild trefoil narrowing of the canal at L4-L5 level. There is no neuroforaminal stenosis. No acute compression fracture is detected. Dictated by: Dictated on workstation # [id number]
== END ==
LOC: RAD 14:56
PROVIDERS: ATTEND Nurse Practitioner Family
DX: M48.061 Spinal stenosis, lumbar region without neurogenic claudication (principal); M47.816 Spondylosis without myelopathy or radiculopathy, lumbar region; M46.96 Unspecified inflammatory spondylopathy, lumbar region; R20.0 Anesthesia of skin
CPT/HCPCS: 72148

== ENCOUNTER → 2017-07-16 | Outpatient (CLI) | payer OTHER ==
[~2017-07-16] MED LIST changes: +CATHETER FLUSH 10 ML SYR IV PRN; +IOHEXOL 350 MG/ML 100 ML (OMNIPAQUE 350) VIAL IV ONE; +NS 250 ML (IVPB) BAG IV ONE
[2017-07-16 10:40] LABS: BUN/CREATININE RATIO 18; CREATININE SERUM 0.67 MG/DL (0.60-1.30); GFR ESTIMATED > 60
--- NOTE | 2017-07-16 11:42 | Diagnostic Imaging Report ---
PROCEDURE: CT abdomen and pelvis with contrast. TECHNIQUE: Multiple contiguous axial images were obtained through the abdomen and pelvis after administration of intravenous contrast. INDICATION: Abdominal tenderness with persistent vomiting and bloating. Correlation is made with prior CT from 01/02/2016. Lung bases are clear. There appears to be lipomatous infiltration of the intra-atrial septum, only partially included on this study. The liver is unremarkable Bladder is surgically absent. The pancreas and spleen are unremarkable. Left adrenal gland is unremarkable. Right adrenal nodule is approximately 17 mm in size compared to 15 mm. Kidneys are unremarkable. Aorta is calcified but not aneurysmal. Visualized small and large bowel loops are normal caliber. There is colonic diverticulosis but no evidence of acute diverticulitis. There are postsurgical changes to the anterior abdominal wall from ventral hernia repair. There is some laxity in the midline anterior abdominal wall but no herniated bowel loops or fat is identified. There is no free fluid detected. Bladder is unremarkable. IMPRESSION: No acute feature in the abdomen or pelvis is identified. There is uncomplicated colonic diverticulosis. Dictated by: Dictated on workstation # [id number]
== END ==
LOC: RAD 09:59
PROVIDERS: ATTEND Nurse Practitioner Family
DX: K57.30 Diverticulosis of large intestine without perforation or abscess without bleeding (principal)
CPT/HCPCS: 36415; 74177; 82565; 84520

== ENCOUNTER 2018-07-27 13:41 | Outpatient (CLI) | payer OTHER ==
[~2018-07-27] VITALS: Ht 157.5 cm; Wt 84.8 kg
[~2018-07-27 13:41] MED LIST changes: -AMLO10TA2 PO; +AMLO10TA7 PO; -CATHETER FLUSH 10 ML SYR IV PRN; -IOHEXOL 350 MG/ML 100 ML (OMNIPAQUE 350) VIAL IV ONE; -LOSA25TA21 PO; +LOSA25TA41 PO; -NS 250 ML (IVPB) BAG IV ONE; +TRAZ-189 PO; -TRAZ-28 PO
[2018-07-27] MEDS ORDERED: ALBU1.25 INH (13:59)
[2018-07-27] MEDS ORDERED: POLY17PO6 PO (13:59)
[2018-07-27] MEDS ORDERED: CLON1TAB27 PO (13:59)
[2018-07-27] MEDS ORDERED: IBUP-1780 PO (13:59)
[2018-07-27] MEDS ORDERED: FLUT1DIS26 IH (13:59)
[2018-07-27] MEDS ORDERED: PANT40TA3 PO (13:59)
[2018-07-27] MEDS ORDERED: SERT25TA PO (14:00)
[2018-07-27] MEDS ORDERED: DULO60CA6 PO (14:00)
[2018-07-27 14:03] VITALS: BP 140/92
[2018-07-27 14:55] LABS: BASOPHILS % (AUTO) 1 % (0-10); EOSINOPHILS # (AUTO) 0.4 10^3/uL (0.0-0.3); EOSINOPHILS % (AUTO) 5 % (0-10); HEMATOCRIT 40 % (35-52); HEMOGLOBIN 12.9 G/DL (11.5-16.0); LYMPHOCYTES # (AUTO) 2.2 X 10^3 (1.0-4.0); LYMPHOCYTES % (AUTO) 29 % (12-44); MEAN CORPUSCULAR HEMOGLOBIN 27 PG (25-34); MEAN CORPUSCULAR HGB CONC 33 G/DL (32-36); MEAN CORPUSCULAR VOLUME 81 FL (80-99); MEAN PLATELET VOLUME 9.9 FL (7.4-10.4); MONOCYTES # (AUTO) 0.5 X 10^3 (0.0-1.0); MONOCYTES % (AUTO) 7 % (0-12); NEUTROPHILS # (AUTO) 4.3 X 10^3 (1.8-7.8); NEUTROPHILS % (AUTO) 58 % (42-75); PLATELET COUNT 362 10^3/uL (130-400); RED CELL DISTRIBUTION WIDTH 17.6 % (10.0-14.5); WHITE BLOOD COUNT 7.4 10^3/uL (4.3-11.0)
[2018-07-27 15:09] LABS: BUN/CREATININE RATIO 17; CALCIUM 9.9 MG/DL (8.5-10.1); CARBON DIOXIDE 26 MMOL/L (21-32); CHLORIDE 108 MMOL/L (98-107); CREATININE SERUM 0.66 MG/DL (0.60-1.30); GFR ESTIMATED > 60; GLUCOSE 142 MG/DL (70-105); POTASSIUM 3.8 MMOL/L (3.6-5.0); SODIUM 142 MMOL/L (135-145)
--- NOTE | 2018-07-27 16:44 | Diagnostic Imaging Report ---
EXAMINATION: PA and lateral chest at 02:27 p.m. INDICATION: Preop left lateral tongue lesion excision. FINDINGS: The heart size is within normal limits and stable when compared to 02/04/2017. The lungs are clear. There is no sign of failure, pneumonia, or pleural effusion. The mediastinum is not widened. The osseous structures are intact. IMPRESSION: There is no evidence for active disease. When compared to the prior study, there has been no significant change. Dictated by: Dictated on workstation # [id number]
[2018-07-29] MEDS ORDERED: HYDR-3812 PO (08:26)
[2018-07-29] MEDS ORDERED: LIDO15SO2 MM (08:26)
== END 2018-07-28 09:51 ==
LOC: PREOP 13:41
PROVIDERS: ATTEND Otolaryngology Otolaryngology/Facial Plastic Surgery
DX: Z01.811 Encounter for preprocedural respiratory examination (principal); Z01.812 Encounter for preprocedural laboratory examination; Z11.2 Encounter for screening for other bacterial diseases; K14.9 Disease of tongue, unspecified
CPT/HCPCS: 36415; 71046; 80048; 85025; 87081; 93005

== ENCOUNTER 2018-07-29 06:07 | Day surgery (SDC) | payer OTHER ==
[~2018-07-29] VITALS: Ht 157.5 cm; Wt 84.8 kg
[~2018-07-29 06:07] MED LIST changes: +ALBU1.25 INH; +CLON1TAB27 PO; +FLUT1DIS26 IH; +PANT40TA3 PO; +POLY17PO6 PO; +SERT25TA PO
[2018-07-29] MEDS ORDERED: RT-ALBUTEROL SULF 2.5 MG/3 ML PRE-MIX VIAL INH ONE (06:30)
[2018-07-29] MEDS ORDERED: FAMOTIDINE 20MG/2ML IV (PEPCID) IV ONE (06:30)
[2018-07-29 06:40] VITALS: BP 133/88
[2018-07-29] MEDS ORDERED: LACTATED RINGERS 1,000 ML IV PRN (06:43)
[2018-07-29] MEDS ORDERED: SUCCINYLCHOLINE INJ 100 MG/5 ML SYR ONE (07:04)
[2018-07-29] MEDS ORDERED: LIDOCAINE PF 2% 5 ML (XYLOCAINE) VIAL ONE (07:04)
[2018-07-29] MEDS ORDERED: proPOfol 200 MG/20 ML (DIPRIVAN) VIAL IV ONE (07:04)
[2018-07-29] MEDS ORDERED: fentaNYL INJECTION 100 MCG/2 ML AMP ONE (07:05)
[2018-07-29] MEDS ORDERED: MIDAZOLAM 2 MG/2 ML (VERSED) VIAL ONE (07:05)
--- NOTE | 2018-07-29 07:06 | Progress Note-Pre Operative ---
Pre-Operative Progress Note H&P Reviewed The H&P was reviewed, patient examined and no changes noted. Date Seen by Provider: Jul 29, 2018 Time Seen by Provider: 06:30 Date H&P Reviewed: Jul 29, 2018 Time H&P Reviewed: 06:30 Pre-Operative Diagnosis: Left LAtertal Tongue Lesion VASU ANDERSEN MD Jul 29, 2018 07:05
[2018-07-29] MEDS ORDERED: LIDOCAINE/EPI 1%-1:100,000 (XYLOCAINE) 20ML ONE (07:09)
[2018-07-29] MEDS ORDERED: DEXAMETHASONE 10 MG/ML (DECADRON) 1 ML VIAL ONE (07:13)
[2018-07-29] MEDS ORDERED: ONDANSETRON 4 MG/2 ML (SDV) Z0FRAN ONE (07:13)
[2018-07-29] MEDS ORDERED: LIDOCAINE 2% VISCOUS 15 ML UDC PO PRN (08:00)
[2018-07-29] MEDS ORDERED: HYDROcodone/APAP 5 MG/325 MG (LORTAB) TAB PO PRN (08:00)
[2018-07-29] MEDS ORDERED: ACETAMINOPHEN 325 MG TABLET PO PRN (08:00)
--- NOTE | 2018-07-29 08:00 | Progress Note-Post Operative ---
Post-Operative Progess Note Surgeon (s)/Senior Examiner (s) Surgeon VASU ANDERSEN MD Senior Examiner n/a Pre-Operative Diagnosis Left LAtertal Tongue Lesion Post-Operative Diagnosis same Post-Op Procedure Note Date of Procedure: Jul 29, 2018 Name of Procedure Performed: Excision of Left Lateral Tongue Lesion Description & Findings Description and Findings: n/a Anesthesia Type get Estimated Blood Loss minimal Packing none. Specimen(s) collected/removed left lateral tongue lesion VASU ANDERSEN MD Jul 29, 2018 08:00
[2018-07-29] MEDS ORDERED: ONDANSETRON 4 MG/2 ML (SDV) Z0FRAN IVP PRN (08:15)
[2018-07-29] MEDS ORDERED: MEPERIDINE (DEMEROL) INJ 50 MG/ML IVP ONE (08:15)
[2018-07-29] MEDS ORDERED: morphine INJ 10 MG/ML 1ML (SYR OR VIAL) IVP ONE (08:15)
[2018-07-29] MEDS ORDERED: LIDO15SO2 MM (08:26)
[2018-07-29] MEDS ORDERED: HYDR-3812 PO (08:26)
[2018-07-29 08:45] VITALS: BP 151/97
[2018-07-29 09:15] VITALS: BP 141/91
[2018-07-29 09:45] VITALS: BP 135/90
[2018-07-29] MEDS ORDERED: RT-ALBUTEROL HFA (VENTOLIN) PER PUFF IH ONE (10:13)
--- NOTE | 2018-07-29 12:50 | Anesthesia-General Post-Op ---
General Patient Condition Mental Status/LOC: Same as Preop Cardiovascular: Satisfactory Nausea/Vomiting: Absent Respiratory: Satisfactory Pain: Controlled Complications: Absent Post Op Complications Complications None Follow Up Care/Instructions Patient Instructions None needed. Anesthesia/Patient Condition Patient Condition Patient is doing well, no complaints, stable vital signs, no apparent adverse anesthesia problems. No complications reported per nursing. KAYLA JIMENEZ CRNA Jul 29, 2018 12:50
== END 2018-07-29 10:00 | disposition home or self-care (01) ==
LOC: SDC 06:07
PROVIDERS: ATTEND Otolaryngology Otolaryngology/Facial Plastic Surgery
DX: K14.0 Glossitis (principal); B37.0 Candidal stomatitis; I10 Essential (primary) hypertension; J44.9 Chronic obstructive pulmonary disease, unspecified; F17.210 Nicotine dependence, cigarettes, uncomplicated; K21.9 Gastro-esophageal reflux disease without esophagitis; F32.9 Major depressive disorder, single episode, unspecified; Z79.899 Other long term (current) drug therapy
CPT/HCPCS: 94640

== ENCOUNTER 2018-11-21 21:38 | Emergency (ER) | payer OTHER ==
[~2018-11-21] VITALS: Ht 157.5 cm; Wt 84.4 kg
[~2018-11-21 21:38] MED LIST changes: +HYDR-3812 PO; +LIDO15SO2 MM; -TRAZ-189 PO; +TRAZ-222 PO
--- OUTSIDE RECORDS SUMMARY | 2018-11-21 21:46 | XMS REPORT ---
Author Author NILE Broderick [facility] Address [address] [place] [address] Care Team Providers Care Market Risk Specialist Name Role Phone NILE Broderick Unavailable PROBLEMS Type Condition ICD9-CM Code WAD18-MQ Code Onset Dates Condition Status SNOMED Code Problem Lumbar spondylosis M47.816 Active 401688749 Problem Insomnia G47.00 Active 905906500 Problem Facet arthropathy, lumbar M46.96 Active 276878528 Problem Depression F32.9 Active 14882987 Problem COPD (chronic obstructive pulmonary disease) J44.9 Active 85415696 Problem Constipation due to outlet dysfunction K59.02 Active 25405906 Problem Restless legs G25.81 Active 56571466 Problem Anxiety F41.9 Active 34603834 Problem Generalized anxiety disorder F41.1 Active 65511798 Problem Psychophysiological insomnia F51.04 Active 850433150 Problem Chronic obstructive pulmonary disease, unspecified COPD type J44.9 Active 17691404 Problem Major depressive disorder, recurrent episode, moderate with anxious distress F33.1 Active 174432785 Problem Gastroesophageal reflux disease, esophagitis presence not specified K21.9 Active 291244239 Problem Essential hypertension I10 Active 99592143 Problem Hypercholesterolemia E78.00 Active 86556914 Problem Other obesity due to excess calories E66.09 Active 143137187 Problem Other chronic pain G89.29 Active 96227993 Problem COPD exacerbation J44.1 Active 040118289 ALLERGIES No Information ENCOUNTERS Encounter Location Date Diagnosis [facility] [place] [address] [facility] [id number] [address] Nov, [facility] [place] [address] [id number] [address] Oct, [facility] [place] [address] [facility] [id number] [address] Oct, COPD (chronic obstructive pulmonary disease) J44.9 [place] [id number] [place] [address] Sep, [place] [address] [address] Jul, Thrush B37.0 and Hypercholesterolemia E78.00 [place] [address] [address] Jul, Severe episode of recurrent major depressive disorder, without psychotic features F33.2 [place] [id number] [place] [address] Jul, Severe episode of recurrent major depressive disorder, without psychotic features F33.2 ; Generalized anxiety disorder F41.1 ; Psychophysiological insomnia F51.04 and Other shelter (current) drug therapy Z79.899 [place] [address] [address] Jun, Severe episode of recurrent major depressive disorder, without psychotic features F33.2 [place] [id number] [place] [address] Jun, Severe episode of recurrent major depressive disorder, without psychotic features F33.2 [place] [id number] [place] [address] Jun, Severe episode of recurrent major depressive disorder, without psychotic features F33.2 ; Generalized anxiety disorder F41.1 and Psychophysiological insomnia F51.04 [place] [id number] [place] [address] May, COPD (chronic obstructive pulmonary disease) J44.9 [place] [address] [address] May, COPD (chronic obstructive pulmonary disease) J44.9 ; Essential hypertension I10 ; Gastroesophageal reflux disease, esophagitis presence not specified K21.9 ; Viral illness B34.9 and Tongue lesion K14.8 [place] [address] [place] [address] Apr, Severe episode of recurrent major depressive disorder, without psychotic features F33.2 [place] [address] [address] Mar, COPD exacerbation J44.1 [place] [id number] [place] [address] 05 Mar, 2018 COPD (chronic obstructive pulmonary disease) J44.9 [place] [address] [address] Feb, Severe episode of recurrent major depressive disorder, without psychotic features F33.2 ; Generalized anxiety disorder F41.1 and Psychophysiological insomnia F51.04 [place] [id number] [place] [address] 13 Dec, 2017 Fever, unspecified fever cause R50.9 ; Nausea and vomiting, intractability of vomiting not specified, unspecified vomiting type R11.2 ; Wheezing on auscultation R06.2 ; COPD (chronic obstructive pulmonary disease) J44.9 and Acute maxillary sinusitis, recurrence not specified J01.00 [place] [address] [address] 07 Dec, 2017 Edema of lower extremity R60.0 [place] [id number] [place] [address] Dec, [place] [id number] [place] [address] Nov, Essential hypertension I10 [place] [id number] [place] [address] Nov, [place] [address] [address] Nov, Severe episode of recurrent major depressive disorder, without psychotic features F33.2 ; Generalized anxiety disorder F41.1 and Psychophysiological insomnia F51.04 [place] [address] [address] Nov, COPD (chronic obstructive pulmonary disease) J44.9 ; Essential hypertension I10 ; Lumbar spondylosis M47.816 ; Generalized anxiety disorder F41.1 ; Rash and nonspecific skin eruption R21 ; Pain in joints of right hand M25.541 ; Pain in joints of left hand M25.542 and Hypercholesterolemia E78.00 [place] [id number] [place] [address] Nov, Rash and nonspecific skin eruption R21 and Non-intractable vomiting with nausea, unspecified vomiting type R11.2 [place] [address] [address] Oct, [place] [address] [address] Sep, Pain aggravated by standing R52 [address] [address] Sep, Other depression F32.89 [place] [address] [address] Sep, Chronic obstructive pulmonary disease, unspecified COPD type J44.9 ; Pain aggravated by standing R52 ; Other depression F32.89 ; Major depressive disorder, recurrent episode, moderate with anxious distress F33.1 ; Restless legs G25.81 ; Insomnia G47.00 ; Gastroesophageal reflux disease with esophagitis K21.0 ; Essential hypertension I10 ; Generalized anxiety disorder F41.1 and Hypercholesterolemia E78.00 [place] [id number] [place] [address] Jul, Fever, unspecified fever cause R50.9 and Cough R05 [place] [address] [address] Jul, [place] [address] [address] Jul, Gastroesophageal reflux disease with esophagitis K21.0 [place] [address] [place] [address] Jul, [place] [address] [address] Jun, COPD (chronic obstructive pulmonary disease) J44.9 ; Restless legs G25.81 ; Insomnia G47.00 ; Essential hypertension I10 ; Major depressive disorder, recurrent episode, moderate with anxious distress F33.1 ; Gastroesophageal reflux disease with esophagitis K21.0 ; Constipation due to outlet dysfunction K59.02 ; Hypercholesterolemia E78.00 ; Other chronic pain G89.29 and Generalized abdominal pain R10.84 [place] [address] [address] Jun, [place] [address] [address] Jun, Acute recurrent sinusitis, unspecified location J01.91 and COPD exacerbation J44.[address] [address] Jun, Lumbago with sciatica, unspecified side M54.40 [place] [id number] [place] [address] May, [place] [address] [address] May, Severe episode of recurrent major depressive disorder, without psychotic features F33.2 [place] [id number] [place] [address] Apr, COPD (chronic obstructive pulmonary disease) J44.9 ; Restless legs G25.81 ; Insomnia G47.00 ; Major depressive disorder, recurrent episode, moderate with anxious distress F33.1 ; Constipation due to outlet dysfunction K59.02 ; Essential hypertension I10 ; Hypercholesterolemia E78.00 ; Lumbago with sciatica, unspecified side M54.40 ; Other obesity due to excess calories E66.09 and Body mass index (BMI) of 32.0-32.9 in adult Z68.32 [place] [address] [place] [address] Apr, Severe episode of recurrent major depressive disorder, without psychotic features F33.2 [place] [address] [address] Feb, Severe episode of recurrent major depressive disorder, without psychotic features F33.2 and Restless legs G25.81 [place] [address] [address] Feb, Severe episode of recurrent major depressive disorder, without psychotic features F33.2 ; Generalized anxiety disorder F41.1 and Psychophysiological insomnia F51.04 [place] [address] [address] Dec, Severe episode of recurrent major depressive disorder, without psychotic features F33.2 ; Generalized anxiety disorder F41.1 and Psychophysiological insomnia F51.04 [place] [address] [address] Nov, Severe episode of recurrent major depressive disorder, without psychotic features F33.2 ; Generalized anxiety disorder F41.1 and Psychophysiological insomnia F51.04 [place] [address] [address] Nov, [place] [address] [address] Nov, Depression F32.9 [place] [address] [address] Nov, Depression F32.9 ; Insomnia G47.00 and Anxiety F41.9 [place] [address] [address] August, COPD (chronic obstructive pulmonary disease) J44.9 ; Depression F32.9 ; Anxiety F41.9 ; Major depressive disorder, recurrent episode, moderate with anxious distress F33.1 ; Insomnia G47.00 ; Restless legs G25.81 ; Essential hypertension I10 and Pure hypercholesterolemia E78.00 [place] [address] [address] August, Acute intractable tension-type headache G44.201 [facility] [id number] [place] [address] Jul, Left wrist pain M25.532 and Strain of left wrist, initial encounter S66.912A [facility], [place] [id number] [place] [address] 14 May, 2016 Gastroesophageal reflux disease with esophagitis K21.0 and Anxiety F41.9 [facility], [place] [id number] [place] [address] 13 May, 2016 Major depressive disorder, recurrent episode, moderate with anxious distress F33.1 ; COPD (chronic obstructive pulmonary disease) J44.9 ; Restless legs G25.81 ; Insomnia G47.00 ; Essential hypertension I10 ; Anxiety F41.9 ; Constipation due to outlet dysfunction K59.02 ; Torsion of intestine, bowel or colon K56.2 ; Hypercholesterolemia E78.00 and Gastroesophageal reflux disease with esophagitis K21.0 [facility] [place] [id number] [place] [address] Feb, [place] [id number] [place] [address] 20 Dec, 2015 Essential hypertension I10 ; Depression F32.9 ; Anxiety F41.9 ; Constipation due to outlet dysfunction K59.02 ; Torsion of intestine, bowel or colon K56.2 ; COPD (chronic obstructive pulmonary disease) J44.9 ; Insomnia G47.00 ; Restless legs G25.81 and Gastroesophageal reflux disease with esophagitis K21.0 [place] [id number] [place] [address] 08 Dec, 2015 Essential hypertension I10 ; Major depressive disorder, recurrent episode, moderate with anxious distress F33.1 ; COPD (chronic obstructive pulmonary disease) J44.9 ; Restless legs G25.81 ; Insomnia G47.00 ; Constipation due to outlet dysfunction K59.02 and Gastroesophageal reflux disease without esophagitis K21.9 [place] [id number] [place] [address] 07 Dec, 2015 Major depressive disorder, recurrent episode, moderate with anxious distress F33.1 [place] [id number] [place] [address] 28 Sep, 2015 [place] [address] [address] 23 Sep, 2015 Nausea R11.0 [place] [address] [address] 15 Sep, 2015 Lower abdominal pain R10.30 ; COPD (chronic obstructive pulmonary disease) J44.9 ; Restless legs G25.81 ; Essential hypertension I10 ; Depression F32.9 ; Other chronic pain G89.29 ; Lumbago with sciatica, unspecified side M54.40 and Primary insomnia F51.[address] [address] August, [address] [address] August, COPD (chronic obstructive pulmonary disease) J44.9 ; Insomnia G47.00 ; Depression F32.9 and Constipation due to outlet dysfunction K59.02 [place] [id number] [place] [address] August, [place] [id number] [place] [address] August, [place] [id number] [place] [address] August, Nausea & vomiting R11.[address] [address] Jun, [place] [id number] [place] [address] Jun, Unspecified abdominal pain R10.9 ; Depression, major, recurrent, moderate 296.32 ; COPD (chronic obstructive pulmonary disease) J44.9 ; Restless legs G25.81 ; Insomnia G47.00 ; Intestinal abscess K63.0 ; HTN (hypertension) I10 and Hypercholesteremia E78.0 [place] [address] [address] Jun, Intestinal abscess K63.0 [place] [address] [address] May, [place] [address] [address] May, [place] [address] [address] May, Unspecified abdominal pain R10.9 [place] [address] [address] May, Depression, major, recurrent, moderate 296.32 ; COPD (chronic obstructive pulmonary disease) J44.9 ; Restless legs G25.81 ; Insomnia G47.00 ; Depression F32.9 ; HTN (hypertension) I10 and Hypercholesterolemia E78.0 [place] [address] [address] Apr, [place] [address] [address] Mar, Cellulitis L03.[address] [address] Feb, Recurrent major depression-severe F33.[address] [address] Feb, Hyperlipemia E78.5 and High blood pressure I10 [address] [address] Feb, COPD (chronic obstructive pulmonary disease) J44.9 ; Restless legs G25.81 ; Insomnia G47.00 ; Depression F32.9 and HTN (hypertension) I10 [facility] [place] [id number] [place] [address] Jan, [facility] [place] [id number] [place] [address] Jan, Generalized anxiety disorder F41.1 and Recurrent major depression- severe F33.2 [facility] [place] [address] [address] Jan, Bronchitis J40 [facility] [place] [id number] [place] [address] Jan, Shoulder pain, right M25.511 and Low back pain M54.5 [facility] [place] [id number] [place] [address] Jan, [facility] [place] [id number] [place] [address] Oct, [facility] [place] [id number] [place] [address] Oct, Generalized anxiety disorder 300.02 and Depression, major, severe recurrence 296.33 [facility] [place] [id number] [place] [address] Oct, [facility] [place] [id number] [place] [address] Oct, Depression, major, recurrent, moderate 296.32 [facility] [place] [id number] [place] [address] August, [facility] [place] [id number] [place] [address] Jul, [facility] [place] [id number] [place] [address] Jul, [facility] [place] [id number] [place] [address] Jun, [facility] [place] [address] [place] [address] Jun, [facility] [place] [facility] [address] [id number] [place] [address] May, 2014 [facility] [place] [facility] [address] [id number] [place] [address] May, 2014 [facility] [place] [facility] [address] [facility] [id number] [place] [address] May, 2014 [facility] [place] [facility] [address] [id number] [place] [address] May, 2014 [facility] [place] [facility] [address] [facility] [id number] [place] [address] May, 2014 [facility] [place] [facility] [address] [facility] [id number] [place] [address] May, 2014 [facility] [place] [facility] [id number] [place] [address] May, 2014 [facility] [place] [facility] [address] [facility] [id number] [place] [address] May, 2014 [facility] [place] [facility] [address] [facility] [id number] [place] [address] May, 2014 [facility] [place] [facility] [address] [facility] [id number] [place] [address] May, 2014 [facility] [place] [facility] [address] [facility] [id number] [place] [address] May, 2014 [facility] [place] [facility] [address] [facility] [id number] [place] [address] May, 2014 [facility] [place] [facility] [address] [facility] [id number] [place] [address] Apr, [facility] [place] [facility] [address] [facility] [id number] [place] [address] Apr, [facility] [place] [facility] [address] [facility] [id number] [address] Apr, [facility] [place] [facility] [address] [id number] [place] [address] Apr, [facility] [place] [facility] [address] [id number] [place] [address] Apr, [facility] [place] [facility] [address] [id number] [place] [address] Apr, [facility] [place] [facility] [address] [id number] [place] [address] Apr, [facility] [place] [facility] [address] [id number] [place] [address] Apr, [facility] [place] [facility] [address] [id number] [place] [address] Apr, [facility] [place] [facility] [address] [id number] [place] [address] Apr, [facility] [place] [facility] [address] [id number] [place] [address] Mar, [facility] [place] [facility] [address] [id number] [place] [address] Mar, [facility] [place] [facility] [address] [id number] [place] [address] Mar, [facility] [place] [facility] [address] [id number] [place] [address] Mar, [facility] [place] [facility] [address] [id number] [address] Mar, [facility] [place] [facility] [address] [id number] [place] [address] Feb, [facility] [place] [facility] [address] [id number] [place] [address] Feb, [facility] [place] [facility] [address] [id number] [place] [address] Dec, [facility] [place] [facility] [address] [id number] [place] [address] Dec, [facility] [address] [id number] [place] [address] Nov, [facility] [place] [facility] [address] [id number] [place] [address] Nov, [facility] [place] [facility] [address] [id number] [place] [address] Nov, [facility] [place] [facility] [address] [id number] [place] [address] Nov, [facility] [place] [facility] [address] [id number] [place] [address] Oct, [facility] [place] [facility] [address] [id number] [place] [address] Oct, [facility] [place] [facility] [address] [id number] [place] [address] Sep, [facility] [place] [facility] [address] [id number] [place] [address] Sep, [facility] [place] [facility] [address] [id number] [place] [address] August, [facility] [place] [facility] [address] [id number] [place] [address] August, [facility] [place] [facility] [address] [id number] [place] [address] August, [facility] [place] [facility] [address] [id number] [place] [address] August, [facility] [place] [facility] [address] [id number] [place] [address] Jul, [facility] [place] [facility] [address] [id number] [place] [address] Jul, [facility] [place] [facility] [address] [id number] [place] [address] Jun, [facility] [place] [facility] [address] [id number] [place] [address] Jun, [facility] [place] [facility] [address] [id number] [place] [address] May, [facility] [place] [facility] [address] [id number] [place] [address] May, [facility] [place] [facility] [address] [id number] [place] [address] May, [facility] [place] [facility] [address] [id number] [place] [address] May, [facility] [place] [facility] [address] [id number] [place] [address] May, [facility] [place] [facility] [address] [id number] [place] [address] May, [facility] [place] [facility] [address] [id number] [place] [address] May, [facility] [place] [facility] [address] [id number] [place] [address] Apr, [facility] [place] [facility] [address] [id number] [place] [address] Apr, [facility] [place] [facility] [address] [id number] [place] [address] Apr, [facility] [place] [facility] [address] [id number] [place] [address] Apr, [facility] [place] [facility] [address] [id number] [place] [address] Apr, [facility] [place] [facility] [address] [id number] [place] [address] Apr, [facility] [place] [facility] [address] [id number] [place] [address] Apr, [facility] [place] [facility] [address] [id number] [place] [address] Apr, [facility] [address] [id number] [place] [address] Apr, [facility] [place] [facility] [address] [id number] [place] [address] Apr, [facility] [address] [id number] [place] [address] Mar, [facility] [place] [facility] [address] [id number] [place] [address] Mar, [facility] [place] [facility] [address] [id number] [place] [address] Mar, [facility] [place] [facility] [address] [id number] [place] [address] Mar, [facility] [address] [id number] [place] [address] Feb, [facility] [place] [facility] [address] [id number] [place] [address] Feb, [facility] [place] [facility] [address] [id number] [place] [address] Feb, [facility] [place] [facility] [address] [id number] [place] [address] Feb, [facility] [place] [facility] [address] [id number] [place] [address] Feb, [facility] [place] [facility] [address] [id number] [place] [address] 16 Feb, 2013 [facility] [place] [facility] [address] [id number] [place] [address] 10 Jan, 2013 [facility] [place] [facility] [address] [id number] [place] [address] 10 Jan, 2013 [facility] [place] [facility] [address] [id number] [place] [address] Dec, [facility] [place] [facility] [address] [id number] [place] [address] Dec, [facility] [address] [id number] [place] [address] Nov, [facility] [address] [id number] [place] [address] Nov, [facility] [address] [id number] [place] [address] Oct, [facility] [address] [id number] [place] [address] Sep, [facility] [address] [id number] [place] [address] August, [facility] [address] [id number] [place] [address] Jul, [facility] [address] [id number] [place] [address] Jul, [facility] [address] [id number] [place] [address] Jul, [facility] [address] [id number] [place] [address] Jul, [facility] [address] [id number] [place] [address] Jul, [facility] [address] [id number] [place] [address] Jun, [facility] [address] [id number] [place] [address] May, [facility] [address] [id number] [place] [address] Apr, [facility] [address] [id number] [place] [address] Mar, [facility] [address] [id number] [address] Mar, [facility] [place] [facility] [address] [id number] [place] [address] Mar, [facility] [place] [facility] [address] [id number] [place] [address] Jan, [facility] [place] [facility] [address] [id number] [place] [address] Jan, [facility] [place] [facility] [address] [id number] [place] [address] Jan, [facility] [place] [facility] [address] [id number] [place] [address] Jan, [facility] [place] [facility] [address] [id number] [place] [address] Dec, [facility] [place] [facility] [address] [id number] [place] [address] Dec, [facility] [place] [facility] [address] [id number] [place] [address] Nov, [facility] [place] [facility] [address] [id number] [place] [address] Nov, [facility] [place] [facility] [address] [id number] [place] [address] Nov, [facility] [place] [facility] [address] [id number] [place] [address] Nov, [facility] [place] [facility] [address] [id number] [place] [address] Nov, [facility] [place] [facility] [address] [id number] [place] [address] Oct, [facility] [place] [facility] [address] [id number] [place] [address] Oct, [facility] [place] [facility] [address] [id number] [place] [address] Oct, [facility] [place] [facility] [address] [id number] [place] [address] Sep, [facility] [place] [facility] [address] [id number] [place] [address] August, [facility] [place] [facility] [address] [id number] [place] [address] Jul, [facility] [place] [facility] [address] [id number] [place] [address] Jul, [facility] [place] [facility] [address] [id number] [place] [address] Jul, [facility] [place] [facility] [address] [id number] [place] [address] Jul, [facility] [place] [facility] [address] [id number] [place] [address] Jun, [facility] [place] [facility] [address] [id number] [place] [address] Jun, [facility] [place] [facility] [address] [id number] [place] [address] Jun, [facility] [place] [facility] [address] [id number] [place] [address] Jun, [facility] [place] [facility] [address] [facility] [id number] [place] [address] Jun, [facility] [place] [facility] [address] [id number] [place] [address] May, [facility] [place] [facility] [address] [id number] [place] [address] 28 May, 2011 [facility] [place] [facility] [address] [id number] [place] [address] 27 May, 2011 [facility] [place] [facility] [address] [id number] [place] [address] 24 May, 2011 [facility] [place] [facility] [address] [id number] [place] [address] Apr, [facility] [place] [address] [id number] [address] Mar, [facility] [place] [id number] [address] Mar, [facility] [place] [id number] [address] Jun, [facility] [place] [id number] [address] Feb, [facility] [place] [id number] [address] Jan, [facility] [place] [id number] [place] [address] Jan, [facility] [place] [id number] [address] Jan, [facility] [place] [id number] [address] Dec, [facility] [place] [id number] [address] May, [facility] [place] [id number] [address] Feb, [facility] [place] [id number] [address] Feb, [facility] [place] [id number] [address] Feb, IMMUNIZATIONS No Known Immunizations SOCIAL HISTORY Never Assessed REASON FOR VISIT PLAN OF CARE VITAL SIGNS MEDICATIONS Unknown Medications RESULTS No Results PROCEDURES No Known procedures INSTRUCTIONS MEDICATIONS ADMINISTERED No Known Medications MEDICAL (GENERAL) HISTORY Type Description Date Medical History COPD Medical History Asthma Medical History Restless leg syndrome Medical History Major depressive disorder, single episode, unspecified Medical History Torsion of intestine, bowel or colon Surgical History hysterectomy Surgical History orthopedic surgery left wrist x5 Surgical History cholecystectomy Surgical History Laproscopy 05/2015 Surgical History bowel resection 06/2015 Surgical History Hernia Surgery 01/2017 Surgical History lesion removed off of tongue 07/2018 Hospitalization History pneumonia Hospitalization History Surgery(s) Hospitalization History [facility] s/p overdose 11/14/16
--- OUTSIDE RECORDS SUMMARY | 2018-11-21 21:47 | XMS REPORT ---
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 Name Role Phone CINDYLUIS Unavailable PROBLEMS Type Condition ICD9-CM Code TIN85-LH Code Onset Dates Condition Status SNOMED Code Problem Lumbar spondylosis M47.816 Active 019985396 Problem Insomnia G47.00 Active 003854675 Problem Facet arthropathy, lumbar M46.96 Active 949633746 Problem Depression F32.9 Active 66995650 Problem COPD (chronic obstructive pulmonary disease) J44.9 Active 19987010 Problem Constipation due to outlet dysfunction K59.02 Active 14503623 Problem Restless legs G25.81 Active 26592128 Problem Anxiety F41.9 Active 53104153 Problem Generalized anxiety disorder F41.1 Active 96244593 Problem Psychophysiological insomnia F51.04 Active 400717735 Problem Chronic obstructive pulmonary disease, unspecified COPD type J44.9 Active 29863872 Problem Major depressive disorder, recurrent episode, moderate with anxious distress F33.1 Active 366924118 Problem Gastroesophageal reflux disease, esophagitis presence not specified K21.9 Active 020373541 Problem Essential hypertension I10 Active 77266302 Problem Hypercholesterolemia E78.00 Active 73603896 Problem Other obesity due to excess calories E66.09 Active 188303891 Problem Other chronic pain G89.29 Active 63255808 Problem COPD exacerbation J44.1 Active 611413149 ALLERGIES No Information ENCOUNTERS Encounter Location Date Diagnosis [facility] [address] [facility] [id number] [address] Nov, [facility] [address] [id number] [address] Oct, [facility] [address] [facility] [id number], [place] [address] Oct, COPD (chronic obstructive pulmonary disease) J44.9 [place] [facility] [id number] [place] [address] Sep, [facility] [address] [address] Jul, Thrush B37.0 and Hypercholesterolemia E78.00 [place] [address] [address] Jul, Severe episode of recurrent major depressive disorder, without psychotic features F33.2 [facility] [id number] [place] [address] Jul, Severe episode of recurrent major depressive disorder, without psychotic features F33.2 ; Generalized anxiety disorder F41.1 ; Psychophysiological insomnia F51.04 and Other half-way (current) drug therapy Z79.899 [place] [address] [address] Jun, Severe episode of recurrent major depressive disorder, without psychotic features F33.2 [facility] [place] [id number] [place] [address] Jun, Severe episode of recurrent major depressive disorder, without psychotic features F33.2 [place] [address] [address] Jun, Severe episode of recurrent major depressive disorder, without psychotic features F33.2 ; Generalized anxiety disorder F41.1 and Psychophysiological insomnia F51.04 [facility] [place] [id number] [place] [address] May, COPD (chronic obstructive pulmonary disease) J44.9 [place] [address] [address] May, COPD (chronic obstructive pulmonary disease) J44.9 ; Essential hypertension I10 ; Gastroesophageal reflux disease, esophagitis presence not specified K21.9 ; Viral illness B34.9 and Tongue lesion K14.8 [place] [address] [place] [address] Apr, Severe episode of recurrent major depressive disorder, without psychotic features F33.2 [place] [address] [address] Mar, COPD exacerbation J44.1 [facility] [id number] [place] [address] 05 Mar, 2018 COPD (chronic obstructive pulmonary disease) J44.9 [place] [address] [address] Feb, Severe episode of recurrent major depressive disorder, without psychotic features F33.2 ; Generalized anxiety disorder F41.1 and Psychophysiological insomnia F51.04 [facility] [place] [id number] [place] [address] 13 Dec, 2017 Fever, unspecified fever cause R50.9 ; Nausea and vomiting, intractability of vomiting not specified, unspecified vomiting type R11.2 ; Wheezing on auscultation R06.2 ; COPD (chronic obstructive pulmonary disease) J44.9 and Acute maxillary sinusitis, recurrence not specified J01.00 [place] [address] [address] 07 Dec, 2017 Edema of lower extremity R60.0 [facility] [id number] [place] [address] Dec, [facility] [id number] [place] [address] Nov, Essential hypertension I10 [facility] [id number] [place] [address] Nov, [place] [address] [address] Nov, Severe episode of recurrent major depressive disorder, without psychotic features F33.2 ; Generalized anxiety disorder F41.1 and Psychophysiological insomnia F51.04 [place] [address] [address] Nov, COPD (chronic obstructive pulmonary disease) J44.9 ; Essential hypertension I10 ; Lumbar spondylosis M47.816 ; Generalized anxiety disorder F41.1 ; Rash and nonspecific skin eruption R21 ; Pain in joints of right hand M25.541 ; Pain in joints of left hand M25.542 and Hypercholesterolemia E78.00 [place] [id number] [place] [address] Nov, Rash and nonspecific skin eruption R21 and Non-intractable vomiting with nausea, unspecified vomiting type R11.2 [place] [address] [address] Oct, [place] [address] [address] Sep, Pain aggravated by standing R52 [address] [address] Sep, Other depression F32.89 [place] [address] [address] Sep, Chronic obstructive pulmonary disease, unspecified COPD type J44.9 ; Pain aggravated by standing R52 ; Other depression F32.89 ; Major depressive disorder, recurrent episode, moderate with anxious distress F33.1 ; Restless legs G25.81 ; Insomnia G47.00 ; Gastroesophageal reflux disease with esophagitis K21.0 ; Essential hypertension I10 ; Generalized anxiety disorder F41.1 and Hypercholesterolemia E78.00 [place] [id number] [place] [address] Jul, Fever, unspecified fever cause R50.9 and Cough R05 [place] [address] [address] Jul, [address] [address] Jul, Gastroesophageal reflux disease with esophagitis K21.0 [facility] [address] [address] Jul, [place] [id number] [place] [address] Jun, COPD (chronic obstructive pulmonary disease) J44.9 ; Restless legs G25.81 ; Insomnia G47.00 ; Essential hypertension I10 ; Major depressive disorder, recurrent episode, moderate with anxious distress F33.1 ; Gastroesophageal reflux disease with esophagitis K21.0 ; Constipation due to outlet dysfunction K59.02 ; Hypercholesterolemia E78.00 ; Other chronic pain G89.29 and Generalized abdominal pain R10.84 [place] [address] [address] Jun, [address] [address] Jun, Acute recurrent sinusitis, unspecified location J01.91 and COPD exacerbation J44.[address] [address] Jun, Lumbago with sciatica, unspecified side M54.40 [id number] [place] [address] May, [place] [id number] [place] [address] May, Severe episode of recurrent major depressive disorder, without psychotic features F33.2 [address] [id number] [place] [address] Apr, COPD (chronic obstructive pulmonary disease) J44.9 [...] index (BMI) of 32.0-32.9 in adult Z68.[address] [place] [address] Apr, Severe episode of recurrent major depressive disorder, without psychotic features F33.2 [place] [address] [address] Feb, Severe episode of recurrent major depressive disorder, without psychotic features F33.2 and Restless legs G25.81 [place] [address] [address] Feb, Severe episode of recurrent major depressive disorder, without psychotic features F33.2 ; Generalized anxiety disorder F41.1 and Psychophysiological insomnia F51.04 [place] [address] [address] Dec, Severe episode of recurrent major depressive disorder, without psychotic features F33.2 ; Generalized anxiety disorder F41.1 and Psychophysiological insomnia F51.04 [place] [address] [address] Nov, Severe episode of recurrent major depressive disorder, without psychotic features F33.2 ; Generalized anxiety disorder F41.1 and Psychophysiological insomnia F51.04 [place] [address] [address] Nov, [place] [address] [address] Nov, Depression F32.9 [place] [address] [address] Nov, Depression F32.9 ; Insomnia G47.00 and Anxiety F41.9 [place] [address] [address] August, COPD (chronic obstructive pulmonary disease) J44.9 ; Depression F32.9 ; Anxiety F41.9 ; Major depressive disorder, recurrent episode, moderate with anxious distress F33.1 ; Insomnia G47.00 ; Restless legs G25.81 ; Essential hypertension I10 and Pure hypercholesterolemia E78.00 [place] [address] [address] August, Acute intractable tension-type headache G44.201 [facility] [id number] [place] [address] Jul, Left wrist pain M25.532 and Strain of left wrist, initial encounter S66.912A [facility] [id number] [place] [address] 14 May, 2016 Gastroesophageal reflux disease with esophagitis K21.0 and Anxiety F41.9 [facility] [id number] [place] [address] 13 May, 2016 Major depressive disorder, recurrent episode, moderate with anxious distress F33.1 ; COPD (chronic obstructive pulmonary disease) J44.9 ; Restless legs G25.81 ; Insomnia G47.00 ; Essential hypertension I10 ; Anxiety F41.9 ; Constipation due to outlet dysfunction K59.02 ; Torsion of intestine, bowel or colon K56.2 ; Hypercholesterolemia E78.00 and Gastroesophageal reflux disease with esophagitis K21.0 [facility] [address] [place] [address] Feb, [place] [id number] [place] [address] 20 Dec, 2015 Essential hypertension I10 ; Depression F32.9 ; Anxiety F41.9 ; Constipation due to outlet dysfunction K59.02 ; Torsion of intestine, bowel or colon K56.2 ; COPD (chronic obstructive pulmonary disease) J44.9 ; Insomnia G47.00 ; Restless legs G25.81 and Gastroesophageal reflux disease with esophagitis K21.0 [place] [id number] [place] [address] 08 Dec, 2015 Essential hypertension I10 ; Major depressive disorder, recurrent episode, moderate with anxious distress F33.1 ; COPD (chronic obstructive pulmonary disease) J44.9 ; Restless legs G25.81 ; Insomnia G47.00 ; Constipation due to outlet dysfunction K59.02 and Gastroesophageal reflux disease without esophagitis K21.9 [place] [id number] [place] [address] 07 Dec, 2015 Major depressive disorder, recurrent episode, moderate with anxious distress F33.1 [place] [id number] [place] [address] 28 Sep, 2015 [place] [id number] [place] [address] 23 Sep, 2015 Nausea R11.0 [place] [address] [address] 15 Sep, 2015 Lower abdominal pain R10.30 ; COPD (chronic obstructive pulmonary disease) J44.9 ; Restless legs G25.81 ; Essential hypertension I10 ; Depression F32.9 ; Other chronic pain G89.29 ; Lumbago with sciatica, unspecified side M54.40 and Primary insomnia F51.[address] [address] August, [place] [id number] [place] [address] August, COPD (chronic obstructive pulmonary disease) J44.9 ; Insomnia G47.00 ; Depression F32.9 and Constipation due to outlet dysfunction K59.02 [place] [id number] [place] [address] August, [place] [id number] [place] [address] August, [id number] [place] [address] August, Nausea & vomiting R11.[address] [address] Jun, [id number] [place] [address] Jun, Unspecified abdominal pain R10.9 ; Depression, major, recurrent, moderate 296.32 ; COPD (chronic obstructive pulmonary disease) J44.9 ; Restless legs G25.81 ; Insomnia G47.00 ; Intestinal abscess K63.0 ; HTN (hypertension) I10 and Hypercholesteremia E78.0 [place] [address] [address] Jun, Intestinal abscess K63.0 [place] [address] [address] May, [place] [address] [address] May, [place] [address] [address] May, Unspecified abdominal pain R10.9 [place] [address] [address] May, Depression, major, recurrent, moderate 296.32 ; COPD (chronic obstructive pulmonary disease) J44.9 ; Restless legs G25.81 ; Insomnia G47.00 ; Depression F32.9 ; HTN (hypertension) I10 and Hypercholesterolemia E78.0 [place] [address] [address] Apr, [place] [address] [address] Mar, Cellulitis L03.[address] [address] Feb, Recurrent major depression-severe F33.[address] [address] Feb, Hyperlipemia E78.5 and High blood pressure I10 [address] [address] Feb, COPD (chronic obstructive pulmonary disease) J44.9 ; Restless legs G25.81 ; Insomnia G47.00 ; Depression F32.9 and HTN (hypertension) I10 [facility] [id number] [place] [address] Jan, [facility] [id number] [place] [address] Jan, Generalized anxiety disorder F41.1 and Recurrent major depression- severe F33.2 [facility] [address] [address] Jan, Bronchitis J40 [facility] [id number] [place] [address] Jan, Shoulder pain, right M25.511 and Low back pain M54.5 [facility] [id number] [place] [address] Jan, [facility] [id number] [place] [address] Oct, [facility] [id number] [place] [address] Oct, Generalized anxiety disorder 300.02 and Depression, major, severe recurrence 296.33 [facility] [id number] [place] [address] Oct, [facility] [id number] [place] [address] Oct, Depression, major, recurrent, moderate 296.32 [facility] [id number] [place] [address] August, [facility] [id number] [place] [address] Jul, [facility] [id number] [place] [address] Jul, [facility] [id number] [place] [address] Jun, [facility] [address] [place] [address] Jun, [facility] [place] [facility] [address] [id number] [place] [address] May, 2014 [facility] [place] [facility] [address] [id number] [place] [address] May, 2014 [facility] [place] [facility] [address] [id number] [place] [address] May, 2014 [facility] [place] [facility] [address] [id number] [place] [address] May, 2014 [facility] [place] [facility] [address] [id number] [place] [address] May, 2014 [facility] [place] [facility] [address] [id number] [place] [address] May, 2014 [facility] [place] [facility] [address] [facility] [id number] [place] [address] May, 2014 [facility] [place] [facility] [address] [id number] [place] [address] May, 2014 [facility] [place] [facility] [address] [facility] [id number] [place] [address] May, 2014 [facility] [place] [facility] [address] [facility] [id number] [place] [address] May, 2014 [facility] [place] [facility] [address] [facility] [id number] [place] [address] May, 2014 [facility] [place] [facility] [address] [id number] [place] [address] May, 2014 [facility] [place] [facility] [address] [id number] [place] [address] Apr, [facility] [place] [facility] [address] [id number] [place] [address] Apr, [facility] [place] [facility] [address] [id number], [place] [address] Apr, [facility] [place] [facility] [address] [id number] [place] [address] Apr, [facility] [place] [facility] [address] [id number] [place] [address] Apr, [facility] [place] [facility] [address] [id number] [place] [address] Apr, [facility] [place] [facility] [address] [id number] [place] [address] Apr, [facility] [place] [facility] [address] [id number] [place] [address] Apr, [facility] [place] [facility] [address] [id number] [place] [address] Apr, [facility] [place] [facility] [address] [id number] [place] [address] Apr, [facility] [place] [facility] [address] [id number], [place] [address] Mar, [facility] [place] [facility] [address] [id number] [place] [address] Mar, [facility] [place] [facility] [address] [id number] [place] [address] Mar, [facility] [place] [facility] [address] [id number], [place] [address] Mar, [facility] [place] [facility] [address] [id number], [place] [address] Mar, [facility] [place] [facility] [address] [id number] [place] [address] Feb, [facility] [place] [facility] [address] [id number], [place] [address] Feb, [facility] [place] [facility] [address] [id number] [place] [address] Dec, [facility] [place] [facility] [address] [id number] [place] [address] Dec, [facility] [place] [facility] [address] [id number] [place] [address] Nov, [facility] [place] [facility] [address] [id number] [place] [address] Nov, [facility] [place] [facility] [address] [id number] [place] [address] Nov, [facility] [place] [facility] [address] [id number] [place] [address] Nov, [facility] [place] [facility] [address] [id number] [place] [address] Oct, [facility] [place] [facility] [address] [id number] [place] [address] Oct, [facility] [place] [facility] [address] [id number] [place] [address] Sep, [facility] [place] [facility] [address] [id number] [place] [address] Sep, [facility] [place] [facility] [address] [id number] [place] [address] August, [facility] [place] [facility] [address] [id number] [place] [address] August, [facility] [place] [facility] [address] [id number] [place] [address] August, [facility] [place] [facility] [address] [id number] [place] [address] August, [facility] [place] [facility] [address] [id number] [place] [address] Jul, [facility] [place] [facility] [address] [id number] [place] [address] Jul, [facility] [place] [facility] [address] [id number] [place] [address] Jun, [facility] [place] [facility] [address] [id number] [place] [address] Jun, [facility] [place] [facility] [address] [id number] [place] [address] May, [facility] [place] [facility] [address] [id number] [place] [address] May, [facility] [place] [facility] [address] [id number] [place] [address] May, [facility] [place] [facility] [address] [id number] [place] [address] May, [facility] [place] [facility] [address] [id number] [place] [address] May, [facility] [place] [facility] [address] [id number] [place] [address] May, [facility] [place] [facility] [address] [id number] [place] [address] May, [facility] [place] [facility] [address] [id number] [place] [address] Apr, [facility] [place] [facility] [address] [id number] [place] [address] Apr, [facility] [place] [facility] [address] [id number] [place] [address] Apr, [facility] [place] [facility] [address] [id number] [place] [address] Apr, [facility] [place] [facility] [address] [id number] [place] [address] Apr, [facility] [place] [facility] [address] [id number] [place] [address] Apr, [facility] [place] [facility] [address] [id number] [place] [address] Apr, [facility] [place] [facility] [address] [id number] [place] [address] Apr, [facility] [address] [id number] [place] [address] Apr, [facility] [place] [facility] [address] [id number] [place] [address] Apr, [facility] [address] [id number] [place] [address] Mar, [facility] [place] [facility] [address] [id number] [place] [address] Mar, [facility] [place] [facility] [address] [id number] [place] [address] Mar, [facility] [place] [facility] [address] [id number] [place] [address] Mar, [facility] [address] [id number] [place] [address] Feb, [facility] [place] [facility] [address] [id number] [place] [address] Feb, [facility] [place] [facility] [address] [id number] [place] [address] Feb, [facility] [place] [facility] [address] [facility] [id number] [place] [address] Feb, [facility] [place] [facility] [address] [id number] [place] [address] 16 Feb, 2013 [facility] [place] [facility] [address] [id number] [place] [address] 16 Feb, 2013 [facility] [place] [facility] [address] [id number] [place] [address] 10 Jan, 2013 [facility] [place] [facility] [address] [id number] [place] [address] 10 Jan, 2013 [facility] [place] [facility] [address] [id number] [address] Dec, [facility] [place] [facility] [address] [id number] [place] [address] Dec, [facility] [address] [id number] [place] [address] Nov, [facility] [address] [id number] [place] [address] Nov, [facility] [address] [id number] [place] [address] Oct, [facility] [address] [id number] [place] [address] Sep, [facility] [address] [id number] [place] [address] August, [facility] [address] [id number] [place] [address] Jul, [facility] [address] [id number] [place] [address] Jul, [facility] [address] [id number] [place] [address] Jul, [facility] [address] [id number] [place] [address] Jul, [facility] [address] [id number] [place] [address] Jul, [facility] [address] [id number] [place] [address] Jun, [facility] [address] [id number] [place] [address] May, [facility] [address] [id number] [place] [address] Apr, [facility] [address] [id number] [place] [address] Mar, [facility] [address] [id number] [place] [address] Mar, [facility] [place] [facility] [address] [id number] [place] [address] Mar, [facility] [place] [facility] [address] [id number] [place] [address] Jan, [facility] [place] [facility] [address] [id number] [place] [address] Jan, [facility] [place] [facility] [address] [id number] [place] [address] Jan, [facility] [place] [facility] [address] [id number] [place] [address] Jan, [facility] [place] [facility] [address] [id number] [place] [address] Dec, [facility] [place] [facility] [address] [id number] [place] [address] Dec, [facility] [place] [facility] [address] [id number] [place] [address] Nov, [facility] [place] [facility] [address] [id number] [place] [address] Nov, [facility] [place] [facility] [address] [id number] [place] [address] Nov, [facility] [place] [facility] [address] [id number] [place] [address] Nov, [facility] [place] [facility] [address] [id number] [place] [address] Nov, [facility] [place] [facility] [address] [id number] [place] [address] Oct, [facility] [place] [facility] [address] [id number] [place] [address] Oct, [facility] [place] [facility] [address] [id number] [place] [address] Oct, [facility] [place] [facility] [address] [id number] [place] [address] Sep, [facility] [address] [id number] [place] [address] August, [facility] [place] [facility] [address] [id number] [place] [address] Jul, [facility] [address] [id number] [place] [address] Jul, [facility] [place] [facility] [address] [id number] [place] [address] Jul, [facility] [address] [id number] [place] [address] Jul, [facility] [address] [id number] [place] [address] Jun, [facility] [address] [id number] [place] [address] Jun, [facility] [address] [id number] [place] [address] Jun, [facility] [place] [facility] [address] [id number] [place] [address] Jun, [facility] [address] [id number] [place] [address] Jun, [facility] [place] [facility] [address] [id number] [place] [address] May, [facility] [place] [facility] [address] [id number] [place] [address] May, [facility] [place] [facility] [address] [id number] [place] [address] May, [facility] [place] [facility] [address] [id number] [place] [address] 24 May, 2011 [facility] [place] [facility] [address] [id number] [place] [address] Apr, [facility] [id number] [address] Mar, [facility] [id number] [address] Mar, [facility] [id number] [address] Jun, [facility] [id number] [address] Feb, [facility] [id number] [address] Jan, [facility] [id number] [place] [address] Jan, [facility] [id number] [address] Jan, [facility] [id number] [address] Dec, [facility] [id number] [address] May, [facility] [id number] [address] Feb, [facility] [id number] [address] Feb, [facility] [id number] [address] Feb, IMMUNIZATIONS No Known Immunizations SOCIAL HISTORY Never Assessed REASON FOR VISIT Refill request PLAN OF CARE VITAL SIGNS MEDICATIONS Medication Instructions Dosage Frequency Start Date End Date Duration Status Cymbalta 60 mg Orally twice a day 1 capsule 12h 30 days Active RESULTS No Results PROCEDURES No [...]
--- OUTSIDE RECORDS SUMMARY | 2018-11-21 21:48 | XMS REPORT ---
Author Author Migration, Doctor Organization [facility] Address Unknown Phone Unavailable Care Team Providers Care Hand Worker Name Role Phone Migration, Doctor Unavailable Unavailable PROBLEMS Type Condition ICD9-CM Code [id number] Code Onset Dates Condition Status SNOMED Code Problem Lumbar spondylosis M47.816 Active 174000430 Problem Insomnia G47.00 Active 328435515 Problem Facet arthropathy, lumbar M46.96 Active 522213395 Problem Depression F32.9 Active 06209149 Problem COPD (chronic obstructive pulmonary disease) J44.9 Active 32786611 Problem Constipation due to outlet dysfunction K59.02 Active 47098905 Problem Restless legs G25.81 Active 95026039 Problem Anxiety F41.9 Active 08556298 Problem Generalized anxiety disorder F41.1 Active 80490436 Problem Psychophysiological insomnia F51.04 Active 963424024 Problem Chronic obstructive pulmonary disease, unspecified COPD type J44.9 Active 10923516 Problem Major depressive disorder, recurrent episode, moderate with anxious distress F33.1 Active 019329259 Problem Gastroesophageal reflux disease, esophagitis presence not specified K21.9 Active 896494421 Problem Essential hypertension I10 Active 83806535 Problem Hypercholesterolemia E78.00 Active 04269017 Problem Other obesity due to excess calories E66.09 Active 117021297 Problem Other chronic pain G89.29 Active 22388265 Problem COPD exacerbation J44.1 Active 422151562 ALLERGIES No Information ENCOUNTERS Encounter Location Date Diagnosis [facility] [id number] [address] Oct, [facility] [address] [address] Sep, [facility] [address] [address] Jul, Thrush B37.0 and Hypercholesterolemia E78.00 [facility] [id number] [place] [address] Jul, Severe episode of recurrent major depressive disorder, without psychotic features F33.2 [facility] [id number] [place] [address] Jul, Severe episode of recurrent major depressive disorder, without psychotic features F33.2 ; Generalized anxiety disorder F41.1 ; Psychophysiological insomnia F51.04 and 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 [place] [facility] [address] [address] Jun, Severe episode of recurrent major depressive disorder, without psychotic features F33.2 [address] [address] [address] Jun, Severe episode of recurrent major depressive disorder, without psychotic features F33.2 [place] [facility] [address] [address] Jun, Severe episode of recurrent major depressive disorder, without psychotic features F33.2 ; Generalized anxiety disorder F41.1 and Psychophysiological insomnia F51.04 [facility] [id number] [place] [address] May, COPD (chronic obstructive pulmonary disease) J44.9 [facility] [id number] [place] [address] May, COPD (chronic obstructive pulmonary disease) J44.9 ; Essential hypertension I10 ; Gastroesophageal reflux disease, esophagitis presence not specified K21.9 ; Viral illness B34.9 and Tongue lesion K14.8 [facility] [id number] [place] [address] Apr, Severe episode of recurrent major depressive disorder, without psychotic features F33.2 [facility] [id number] [place] [address] Mar, COPD exacerbation J44.1 [facility] [id number] [place] [address] Mar, COPD (chronic obstructive pulmonary disease) J44.9 [place] [address] [address] Feb, Severe episode of recurrent major depressive disorder, without psychotic features F33.2 ; Generalized anxiety disorder F41.1 and Psychophysiological insomnia F51.04 [facility] [facility] [address] [address] 13 Dec, 2017 Fever, unspecified fever cause R50.9 ; Nausea and vomiting, intractability of vomiting not specified, unspecified vomiting type R11.2 ; Wheezing on auscultation R06.2 ; COPD (chronic obstructive pulmonary disease) J44.9 and Acute maxillary sinusitis, recurrence not specified J01.00 [place] [address] [address] 07 Dec, 2017 Edema of lower extremity R60.0 [place] [address] [address] Dec, [address] [address] [address] Nov, Essential hypertension I10 [address] [address] [address] Nov, [facility] [address] [address] Nov, Severe episode of recurrent major depressive disorder, without psychotic features F33.2 ; Generalized anxiety disorder F41.1 and Psychophysiological insomnia F51.04 [facility] [address] [address] Nov, COPD (chronic obstructive pulmonary disease) J44.9 ; Essential hypertension I10 ; Lumbar spondylosis M47.816 ; Generalized anxiety disorder F41.1 ; Rash and nonspecific skin eruption R21 ; Pain in joints of right hand M25.541 ; Pain in joints of left hand M25.542 and Hypercholesterolemia E78.00 [place] [address] [address] Nov, Rash and nonspecific skin eruption R21 and Non-intractable vomiting with nausea, unspecified vomiting type R11.2 [address] [address] [address] Oct, [facility] [address] [address] Sep, Pain aggravated by standing R52 [place] [address] [address] Sep, Other depression F32.89 [place] [facility] [address] [address] Sep, Chronic obstructive pulmonary disease, unspecified COPD type J44.9 ; Pain aggravated by standing R52 ; Other depression F32.89 ; Major depressive disorder, recurrent episode, moderate with anxious distress F33.1 ; Restless legs G25.81 ; Insomnia G47.00 ; Gastroesophageal reflux disease with esophagitis K21.0 ; Essential hypertension I10 ; Generalized anxiety disorder F41.1 and Hypercholesterolemia E78.00 [facility] [id number] [place] [address] Jul, Fever, unspecified fever cause R50.9 and Cough R05 [facility] [id number] [place] [address] Jul, [facility] [id number] [place] [address] Jul, Gastroesophageal reflux disease with esophagitis K21.0 [facility] [id number] [place] [address] Jul, [address] [address] [address] Jun, COPD (chronic obstructive pulmonary disease) J44.9 ; Restless legs G25.81 ; Insomnia G47.00 ; Essential hypertension I10 ; Major depressive disorder, recurrent episode, moderate with anxious distress F33.1 ; Gastroesophageal reflux disease with esophagitis K21.0 ; Constipation due to outlet dysfunction K59.02 ; Hypercholesterolemia E78.00 ; Other chronic pain G89.29 and Generalized abdominal pain R10.84 [facility] [id number] [place] [address] Jun, [facility] [id number] [place] [address] Jun, Acute recurrent sinusitis, unspecified location J01.91 and COPD exacerbation J44.1 [facility] [id number] [place] [address] Jun, Lumbago with sciatica, unspecified side M54.40 [facility] [id number] [place] [address] May, [facility] [address] [address] May, Severe episode of recurrent major depressive disorder, without psychotic features F33.2 [facility] [id number] [place] [address] Apr, COPD (chronic obstructive pulmonary disease) J44.9 [...] index (BMI) of 32.0-32.9 in adult Z68.32 [facility] [address] [place] [address] Apr, Severe episode of recurrent major depressive disorder, without psychotic features F33.2 [facility] [id number] [place] [address] Feb, Severe episode of recurrent major depressive disorder, without psychotic features F33.2 and Restless legs G25.81 [place] [address] [place] [address] Feb, Severe episode of recurrent major depressive disorder, without psychotic features F33.2 ; Generalized anxiety disorder F41.1 and Psychophysiological insomnia F51.04 [facility] [address] [address] Dec, Severe episode of recurrent major depressive disorder, without psychotic features F33.2 ; Generalized anxiety disorder F41.1 and Psychophysiological insomnia F51.04 [facility] [address] [address] Nov, Severe episode of recurrent major depressive disorder, without psychotic features F33.2 ; Generalized anxiety disorder F41.1 and Psychophysiological insomnia F51.04 [address] [address] [address] Nov, [address] [address] [address] Nov, Depression F32.9 [facility] [address] [address] Nov, Depression F32.9 ; Insomnia G47.00 and Anxiety F41.9 [address] [address] [address] August, COPD (chronic obstructive pulmonary disease) J44.9 ; Depression F32.9 ; Anxiety F41.9 ; Major depressive disorder, recurrent episode, moderate with anxious distress F33.1 ; Insomnia G47.00 ; Restless legs G25.81 ; Essential hypertension I10 and Pure hypercholesterolemia E78.00 [facility] [id number] [place] [address] August, Acute intractable tension-type headache G44.201 [facility] [address] [address] Jul, Left wrist pain M25.532 and Strain of left wrist, initial encounter S66.912A [address] [place] [address] 14 May, 2016 Gastroesophageal reflux disease with esophagitis K21.0 and Anxiety F41.9 [address] [address] 13 May, 2016 Major depressive disorder, recurrent episode, moderate with anxious distress F33.1 ; COPD (chronic obstructive pulmonary disease) J44.9 ; Restless legs G25.81 ; Insomnia G47.00 ; Essential hypertension I10 ; Anxiety F41.9 ; Constipation due to outlet dysfunction K59.02 ; Torsion of intestine, bowel or colon K56.2 ; Hypercholesterolemia E78.00 and Gastroesophageal reflux disease with esophagitis K21.0 [address] [address] Feb, [address] [address] [address] 20 Dec, 2015 Essential hypertension I10 ; Depression F32.9 ; Anxiety F41.9 ; Constipation due to outlet dysfunction K59.02 ; Torsion of intestine, bowel or colon K56.2 ; COPD (chronic obstructive pulmonary disease) J44.9 ; Insomnia G47.00 ; Restless legs G25.81 and Gastroesophageal reflux disease with esophagitis K21.0 [address] [address] 08 Dec, 2015 Essential hypertension I10 ; Major depressive disorder, recurrent episode, moderate with anxious distress F33.1 ; COPD (chronic obstructive pulmonary disease) J44.9 ; Restless legs G25.81 ; Insomnia G47.00 ; Constipation due to outlet dysfunction K59.02 and Gastroesophageal reflux disease without esophagitis K21.9 [address] [id number] [place] [address] 07 Dec, 2015 Major depressive disorder, recurrent episode, moderate with anxious distress F33.1 [address] [id number] [place] [address] Sep, [address] [address] [address] Sep, Nausea R11.0 [address] [id number] [place] [address] Sep, Lower abdominal pain R10.30 ; COPD (chronic obstructive pulmonary disease) J44.9 ; Restless legs G25.81 ; Essential hypertension I10 ; Depression F32.9 ; Other chronic pain G89.29 ; Lumbago with sciatica, unspecified side M54.40 and Primary insomnia F51.01 [address] [address] August, [address] [address] August, COPD (chronic obstructive pulmonary disease) J44.9 ; Insomnia G47.00 ; Depression F32.9 and Constipation due to outlet dysfunction K59.02 [address] [address] August, [place] [address] [address] August, [address] [address] [address] August, Nausea & vomiting R11.2 [address] [address] [address] Jun, [address] [address] [address] Jun, Unspecified abdominal pain R10.9 ; Depression, major, recurrent, moderate 296.32 ; COPD (chronic obstructive pulmonary disease) J44.9 ; Restless legs G25.81 ; Insomnia G47.00 ; Intestinal abscess K63.0 ; HTN (hypertension) I10 and Hypercholesteremia E78.0 [address] [id number] [place] [address] Jun, Intestinal abscess K63.0 [address] [address] May, [id number] [place] [address] May, [address] [address] May, Unspecified abdominal pain R10.9 [address] [address] May, Depression, major, recurrent, moderate 296.32 ; COPD (chronic obstructive pulmonary disease) J44.9 ; Restless legs G25.81 ; Insomnia G47.00 ; Depression F32.9 ; HTN (hypertension) I10 and Hypercholesterolemia E78.0 [id number] [place] [address] Apr, [address] [place] [address] Mar, Cellulitis L03.90 [address] [id number] [place] [address] Feb, Recurrent major depression-severe F33.2 [facility] [id number] [place] [address] Feb, Hyperlipemia E78.5 and High blood pressure I10 [address] [id number] [place] [address] Feb, COPD (chronic obstructive pulmonary disease) J44.9 ; Restless legs G25.81 ; Insomnia G47.00 ; Depression F32.9 and HTN (hypertension) I10 [address] [id number] [place] [address] Jan, [address] [address] [address] Jan, Generalized anxiety disorder F41.1 and Recurrent major depression- severe F33.2 [address] [address] Jan, Bronchitis J40 [facility] [id number] [place] [address] Jan, Shoulder pain, right M25.511 and Low back pain M54.5 [facility] [address] [address] Jan, [facility] [id number] [place] [address] Oct, [facility] [id number] [place] [address] Oct, Generalized anxiety disorder 300.02 and Depression, major, severe recurrence 296.33 [facility] [id number] [place] [address] Oct, [facility] [id number] [place] [address] Oct, Depression, major, recurrent, moderate 296.32 [facility] [address], [place] [address] August, [facility] [id number] [place] [address] Jul, [facility] [address] [address] Jul, [facility] [address], [place] [address] Jun, [facility] [address], [place] [address] Jun, [facility] [id number] [place] [address] May, [facility] [address] [address] May, [facility] [id number] [place] [address] May, 2014 [facility] [place] [facility] [address] [id number] [place] [address] May, 2014 [facility] [place] [facility] [address] [id number] [place] [address] May, 2014 [facility] [place] [facility] [address] [id number] [place] [address] May, 2014 [facility] [place] [facility] [address] [id number] [place] [address] May, 2014 [facility] [place] [facility] [address] [id number] [place] [address] May, 2014 [facility] [place] [facility] [address] [id number] [place] [address] May, 2014 [facility] [place] [facility] [address] [id number] [place] [address] May, 2014 [facility] [place] [facility] [address] [id number] [place] [address] May, 2014 [facility] [place] [facility] [address] [id number] [place] [address] May, 2014 [facility] [place] [facility] [address] [facility] [id number] [place] [address] Apr, [facility] [place] [facility] [address] [id number] [place] [address] Apr, [facility] [place] [facility] [address] [id number] [address] Apr, [facility] [place] [facility] [address] [id number] [place] [address] Apr, [facility] [place] [facility] [address] [id number] [place] [address] Apr, [facility] [place] [facility] [address] [id number], [place] [address] Apr, [facility] [place] [facility] [address] [id number] [place] [address] Apr, [facility] [place] [facility] [address] [id number] [place] [address] Apr, [facility] [place] [facility] [address] [id number] [place] [address] Apr, [facility] [place] [facility] [address] [id number] [place] [address] Apr, [facility] [place] [facility] [address] [id number] [place] [address] Mar, [facility] [place] [facility] [address] [id number] [place] [address] Mar, [facility] [place] [facility] [address] [id number] [place] [address] Mar, [facility] [place] [facility] [address] [id number] [place] [address] Mar, [facility] [place] [facility] [address] [id number] [place] [address] Mar, [facility] [place] [facility] [address] [id number] [place] [address] Feb, [facility] [place] [facility] [address] [id number] [place] [address] Feb, [facility] [place] [facility] [address] [id number] [place] [address] Dec, [facility] [place] [facility] [address] [id number] [place] [address] Dec, [facility] [place] [facility] [address] [id number] [place] [address] Nov, [facility] [place] [facility] [address] [id number] [place] [address] Nov, [facility] [place] [facility] [address] [id number] [place] [address] Nov, [facility] [place] [facility] [address] [id number] [place] [address] Nov, [facility] [place] [facility] [address] [id number] [place] [address] Oct, [facility] [place] [facility] [address] [id number] [place] [address] Oct, [facility] [place] [facility] [address] [id number] [place] [address] Sep, [facility] [place] [facility] [address] [id number] [place] [address] Sep, [facility] [place] [facility] [address] [id number] [place] [address] August, [facility] [place] [facility] [address] [id number] [place] [address] August, [facility] [place] [facility] [address] [id number] [place] [address] August, [facility] [place] [facility] [address] [id number] [place] [address] August, [facility] [place] [facility] [address] [id number] [place] [address] Jul, [facility] [place] [facility] [address] [id number] [place] [address] Jul, [facility] [place] [facility] [address] [id number] [place] [address] Jun, [facility] [place] [facility] [address] [id number] [place] [address] Jun, [facility] [place] [facility] [address] [id number] [place] [address] May, [facility] [place] [facility] [address] [id number] [place] [address] May, [facility] [place] [facility] [address] [id number] [place] [address] May, [facility] [place] [facility] [address] [id number] [place] [address] May, [facility] [place] [facility] [address] [id number] [place] [address] May, [facility] [place] [facility] [address] [id number] [place] [address] May, [facility] [place] [facility] [address] [id number] [place] [address] May, [facility] [place] [facility] [address] [id number] [place] [address] Apr, [facility] [place] [facility] [address] [id number] [place] [address] Apr, [facility] [place] [facility] [address] [id number] [place] [address] Apr, [facility] [place] [facility] [address] [id number] [place] [address] Apr, [facility] [place] [facility] [address] [id number] [place] [address] Apr, [facility] [place] [facility] [address] [id number] [place] [address] Apr, [facility] [place] [facility] [address] [id number] [place] [address] Apr, [facility] [place] [facility] [address] [id number] [place] [address] Apr, [facility] [place] [facility] [address] [id number] [place] [address] Apr, [facility] [place] [facility] [address] [id number] [place] [address] Apr, [facility] [place] [facility] [address] [id number] [place] [address] Mar, [facility] [place] [facility] [address] [id number] [place] [address] Mar, [facility] [place] [facility] [address] [id number] [place] [address] Mar, [facility] [place] [facility] [address] [id number] [place] [address] Mar, [facility] [place] [facility] [address] [id number] [place] [address] Feb, [facility] [place] [facility] [address] [id number] [place] [address] Feb, [facility] [place] [facility] [address] [id number] [place] [address] Feb, [facility] [place] [facility] [address] [id number] [place] [address] Feb, [facility] [place] [facility] [address] [id number] [place] [address] Feb, [facility] [place] [facility] [address] [id number] [place] [address] Feb, [facility] [place] [facility] [address] [id number] [place] [address] Jan, [facility] [place] [facility] [address] [id number] [place] [address] Jan, [facility] [place] [facility] [address] [id number] [address] 05 Dec, 2012 [facility] [place] [facility] [address] [id number] [place] [address] Dec, [facility] [place] [facility] [address] [id number] [place] [address] Nov, [facility] [place] [facility] [address] [id number] [place] [address] Nov, [facility] [place] [facility] [address] [id number] [place] [address] Oct, [facility] [address] [id number] [place] [address] Sep, [facility] [address] [id number] [place] [address] August, [facility] [address] [id number] [place] [address] Jul, [facility] [address] [id number] [place] [address] Jul, [facility] [address] [id number] [place] [address] Jul, [facility] [address] [id number] [place] [address] Jul, [facility] [address] [id number] [place] [address] Jul, [facility] [address] [id number] [place] [address] Jun, [facility] [address] [id number] [place] [address] May, [facility] [address] [address] [id number] [place] [address] Apr, [facility] [address] [id number] [place] [address] Mar, [facility] [address] [id number] [place] [address] Mar, [facility] [place] [facility] [address] [id number] [place] [address] Mar, [facility] [address] [id number] [place] [address] Jan, [facility] [address] [id number] [place] [address] Jan, [facility] [place] [facility] [address] [id number] [place] [address] Jan, [facility] [place] [facility] [address] [id number] [place] [address] Jan, [facility] [place] [facility] [address] [id number] [place] [address] Dec, [facility] [place] [facility] [address] [id number] [place] [address] Dec, [facility] [place] [facility] [address] [id number] [place] [address] Nov, [facility] [place] [facility] [address] [id number] [place] [address] Nov, [facility] [place] [facility] [address] [id number] [place] [address] Nov, [facility] [place] [facility] [address] [id number] [place] [address] Nov, [facility] [place] [facility] [address] [id number] [place] [address] Nov, [facility] [place] [facility] [address] [id number] [place] [address] Oct, [facility] [place] [facility] [address] [id number] [place] [address] Oct, [facility] [place] [facility] [address] [id number] [place] [address] Oct, [facility] [place] [facility] [address] [id number] [place] [address] Sep, [facility] [place] [facility] [address] [id number] [place] [address] August, [facility] [place] [facility] [address] [id number] [place] [address] Jul, [facility] [place] [facility] [address] [id number] [place] [address] 12 Jul, 2011 [facility] [address] [id number] [place] [address] 09 Jul, 2011 [facility] [place] [facility] [address] [id number] [place] [address] 05 Jul, 2011 [facility] [place] [facility] [address] [id number] [place] [address] 29 Jun, 2011 [facility] [place] [facility] [address] [id number] [place] [address] 28 Jun, 2011 [facility] [place] [facility] [address] [id number] [place] [address] 23 Jun, 2011 [facility] [place] [facility] [address] [id number] [place] [address] Jun, [facility] [address] [id number] [place] [address] 15 Jun, 2011 [facility] [place] [facility] [address] [id number] [place] [address] May, [facility] [place] [facility] [address] [id number] [place] [address] May, [facility] [place] [facility] [address] [id number] [place] [address] May, [facility] [place] [facility] [address] [id number] [place] [address] May, [facility] [place] [facility] [address] [id number] [place] [address] Apr, [facility] [place] [facility] [address] [id number] [place] [address] Mar, [facility] [place] [facility] [address] [id number] [place] [address] Mar, [facility] [place] [facility] [address] [id number] [place] [address] Jun, [facility] [id number] [address] Feb, [facility] [id number] [address] Jan, [facility] [id number] [address] Jan, [facility] [id number] [address] Jan, [facility] [id number] [address] Dec, [facility] [id number] [address] May, [facility] [id number] [address] Feb, [facility] [id number] [address] Feb, [facility] [id number] [address] Feb, IMMUNIZATIONS No Known Immunizations SOCIAL HISTORY Never Assessed REASON FOR VISIT PLAN OF CARE VITAL SIGNS Height 62 in 2014-07-11 Weight 182.6 lbs 2014-07-11 Temperature 98.4 degrees Fahrenheit 2014-07-11 Heart Rate 80 bpm 2014-07-11 Respiratory Rate 2014-07-11 Blood pressure systolic 138 mmHg 2014-07-11 Blood pressure diastolic 90 mmHg 2014-07-11 MEDICATIONS Unknown Medications RESULTS No Results PROCEDURES [...]
--- OUTSIDE RECORDS SUMMARY | 2018-11-21 21:48 | XMS REPORT ---
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 Name Role Phone NILE Broderick Unavailable PROBLEMS Type Condition ICD9-CM Code JOS50-PM Code Onset Dates Condition Status SNOMED Code Problem Lumbar spondylosis M47.816 Active 998794168 Problem Insomnia G47.00 Active 996596516 Problem Facet arthropathy, lumbar M46.96 Active 247569085 Problem Depression F32.9 Active 50100091 Problem COPD (chronic obstructive pulmonary disease) J44.9 Active 74632450 Problem Constipation due to outlet dysfunction K59.02 Active 42508070 Problem Restless legs G25.81 Active 85678430 Problem Anxiety F41.9 Active 28344059 Problem Generalized anxiety disorder F41.1 Active 41258896 Problem Psychophysiological insomnia F51.04 Active 567101299 Problem Chronic obstructive pulmonary disease, unspecified COPD type J44.9 Active 68351072 Problem Major depressive disorder, recurrent episode, moderate with anxious distress F33.1 Active 590829843 Problem Gastroesophageal reflux disease, esophagitis presence not specified K21.9 Active 017322095 Problem Essential hypertension I10 Active 65072498 Problem Hypercholesterolemia E78.00 Active 31629801 Problem Other obesity due to excess calories E66.09 Active 862222388 Problem Other chronic pain G89.29 Active 42046137 Problem COPD exacerbation J44.1 Active 189147109 ALLERGIES No Information ENCOUNTERS Encounter Location Date Diagnosis [facility] [address] [facility] [id number] [address] Nov, [facility] [address] [id number] [address] Oct, [facility] [address] [facility] [id number], [place] [address] Oct, COPD (chronic obstructive pulmonary disease) J44.9 [place] [id number] [place] [address] Sep, [place] [address] [address] Jul, Thrush B37.0 and Hypercholesterolemia E78.00 [place] [address] [address] Jul, Severe episode of recurrent major depressive disorder, without psychotic features F33.2 [place] [id number] [place] [address] Jul, Severe episode of recurrent major depressive disorder, without psychotic features F33.2 ; Generalized anxiety disorder F41.1 ; Psychophysiological insomnia F51.04 and Other retirement (current) drug therapy Z79.899 [place] [address] [address] Jun, Severe episode of recurrent major depressive disorder, without psychotic features F33.2 [place] [id number] [place] [address] Jun, Severe episode of recurrent major depressive disorder, without psychotic features F33.2 [place] [id number] [place] [address] Jun, Severe episode of recurrent major depressive disorder, without psychotic features F33.2 ; Generalized anxiety disorder F41.1 and Psychophysiological insomnia F51.04 [place] [id number] [place] [address] May, COPD (chronic obstructive pulmonary disease) J44.9 [place] [address] [address] May, COPD (chronic obstructive pulmonary disease) J44.9 ; Essential hypertension I10 ; Gastroesophageal reflux disease, esophagitis presence not specified K21.9 ; Viral illness B34.9 and Tongue lesion K14.8 [place] [address] [place] [address] Apr, Severe episode of recurrent major depressive disorder, without psychotic features F33.2 [place] [address] [address] Mar, COPD exacerbation J44.1 [place] [id number] [place] [address] 05 Mar, 2018 COPD (chronic obstructive pulmonary disease) J44.9 [place] [address] [address] Feb, Severe episode of recurrent major depressive disorder, without psychotic features F33.2 ; Generalized anxiety disorder F41.1 and Psychophysiological insomnia F51.04 [place] [id number] [place] [address] 13 Dec, 2017 Fever, unspecified fever cause R50.9 ; Nausea and vomiting, intractability of vomiting not specified, unspecified vomiting type R11.2 ; Wheezing on auscultation R06.2 ; COPD (chronic obstructive pulmonary disease) J44.9 and Acute maxillary sinusitis, recurrence not specified J01.00 [place] [address] [address] 07 Dec, 2017 Edema of lower extremity R60.0 [place] [id number] [place] [address] Dec, [place] [id number] [place] [address] Nov, Essential hypertension I10 [place] [id number] [place] [address] Nov, [place] [address] [address] Nov, Severe episode of recurrent major depressive disorder, without psychotic features F33.2 ; Generalized anxiety disorder F41.1 and Psychophysiological insomnia F51.04 [place] [address] [address] Nov, COPD (chronic obstructive pulmonary disease) J44.9 ; Essential hypertension I10 ; Lumbar spondylosis M47.816 ; Generalized anxiety disorder F41.1 ; Rash and nonspecific skin eruption R21 ; Pain in joints of right hand M25.541 ; Pain in joints of left hand M25.542 and Hypercholesterolemia E78.00 [place] [id number] [place] [address] Nov, Rash and nonspecific skin eruption R21 and Non-intractable vomiting with nausea, unspecified vomiting type R11.2 [place] [address] [address] Oct, [place] [address] [address] Sep, Pain aggravated by standing R52 [address] [address] Sep, Other depression F32.89 [place] [address] [address] Sep, Chronic obstructive pulmonary disease, unspecified COPD type J44.9 ; Pain aggravated by standing R52 ; Other depression F32.89 ; Major depressive disorder, recurrent episode, moderate with anxious distress F33.1 ; Restless legs G25.81 ; Insomnia G47.00 ; Gastroesophageal reflux disease with esophagitis K21.0 ; Essential hypertension I10 ; Generalized anxiety disorder F41.1 and Hypercholesterolemia E78.00 [place] [id number] [place] [address] Jul, Fever, unspecified fever cause R50.9 and Cough R05 [place] [address] [address] Jul, [place] [address] [address] Jul, Gastroesophageal reflux disease with esophagitis K21.0 [place] [address] [place] [address] Jul, [place] [address] [address] Jun, COPD (chronic obstructive pulmonary disease) J44.9 ; Restless legs G25.81 ; Insomnia G47.00 ; Essential hypertension I10 ; Major depressive disorder, recurrent episode, moderate with anxious distress F33.1 ; Gastroesophageal reflux disease with esophagitis K21.0 ; Constipation due to outlet dysfunction K59.02 ; Hypercholesterolemia E78.00 ; Other chronic pain G89.29 and Generalized abdominal pain R10.84 [place] [address] [address] Jun, [place] [address] [address] Jun, Acute recurrent sinusitis, unspecified location J01.91 and COPD exacerbation J44.[address] [address] Jun, Lumbago with sciatica, unspecified side M54.40 [place] [id number] [place] [address] May, [place] [address] [address] May, Severe episode of recurrent major depressive disorder, without psychotic features F33.2 [place] [id number] [place] [address] Apr, COPD (chronic obstructive pulmonary disease) J44.9 [...] index (BMI) of 32.0-32.9 in adult Z68.32 [place] [address] [place] [address] Apr, Severe episode of recurrent major depressive disorder, without psychotic features F33.2 [place] [address] [address] Feb, Severe episode of recurrent major depressive disorder, without psychotic features F33.2 and Restless legs G25.81 [place] [address] [address] Feb, Severe episode of recurrent major depressive disorder, without psychotic features F33.2 ; Generalized anxiety disorder F41.1 and Psychophysiological insomnia F51.04 [place] [address] [address] Dec, Severe episode of recurrent major depressive disorder, without psychotic features F33.2 ; Generalized anxiety disorder F41.1 and Psychophysiological insomnia F51.04 [place] [address] [address] Nov, Severe episode of recurrent major depressive disorder, without psychotic features F33.2 ; Generalized anxiety disorder F41.1 and Psychophysiological insomnia F51.04 [place] [address] [address] Nov, [place] [address] [address] Nov, Depression F32.9 [place] [address] [address] Nov, Depression F32.9 ; Insomnia G47.00 and Anxiety F41.9 [place] [address] [address] August, COPD (chronic obstructive pulmonary disease) J44.9 ; Depression F32.9 ; Anxiety F41.9 ; Major depressive disorder, recurrent episode, moderate with anxious distress F33.1 ; Insomnia G47.00 ; Restless legs G25.81 ; Essential hypertension I10 and Pure hypercholesterolemia E78.00 [place] [address] [address] August, Acute intractable tension-type headache G44.201 [facility] [id number] [place] [address] Jul, Left wrist pain M25.532 and Strain of left wrist, initial encounter S66.912A [facility] [id number] [place] [address] 14 May, 2016 Gastroesophageal reflux disease with esophagitis K21.0 and Anxiety F41.9 [facility] [address] [place] [address] 13 May, 2016 Major depressive disorder, recurrent episode, moderate with anxious distress F33.1 ; COPD (chronic obstructive pulmonary disease) J44.9 ; Restless legs G25.81 ; Insomnia G47.00 ; Essential hypertension I10 ; Anxiety F41.9 ; Constipation due to outlet dysfunction K59.02 ; Torsion of intestine, bowel or colon K56.2 ; Hypercholesterolemia E78.00 and Gastroesophageal reflux disease with esophagitis K21.0 [facility] [id number] [place] [address] Feb, [place] [id number] [place] [address] 20 Dec, 2015 Essential hypertension I10 ; Depression F32.9 ; Anxiety F41.9 ; Constipation due to outlet dysfunction K59.02 ; Torsion of intestine, bowel or colon K56.2 ; COPD (chronic obstructive pulmonary disease) J44.9 ; Insomnia G47.00 ; Restless legs G25.81 and Gastroesophageal reflux disease with esophagitis K21.0 [place] [id number] [place] [address] 08 Dec, 2015 Essential hypertension I10 ; Major depressive disorder, recurrent episode, moderate with anxious distress F33.1 ; COPD (chronic obstructive pulmonary disease) J44.9 ; Restless legs G25.81 ; Insomnia G47.00 ; Constipation due to outlet dysfunction K59.02 and Gastroesophageal reflux disease without esophagitis K21.9 [place] [id number] [place] [address] 07 Dec, 2015 Major depressive disorder, recurrent episode, moderate with anxious distress F33.1 [place] [id number] [place] [address] 28 Sep, 2015 [place] [address] [address] 23 Sep, 2015 Nausea R11.0 [place] [address] [address] 15 Sep, 2015 Lower abdominal pain R10.30 ; COPD (chronic obstructive pulmonary disease) J44.9 ; Restless legs G25.81 ; Essential hypertension I10 ; Depression F32.9 ; Other chronic pain G89.29 ; Lumbago with sciatica, unspecified side M54.40 and Primary insomnia F51.[address] [address] August, [address] [address] August, COPD (chronic obstructive pulmonary disease) J44.9 ; Insomnia G47.00 ; Depression F32.9 and Constipation due to outlet dysfunction K59.02 [place] [id number] [place] [address] August, [place] [id number] [place] [address] August, [place] [id number] [place] [address] August, Nausea & vomiting R11.[address] [address] Jun, [place] [id number] [place] [address] Jun, Unspecified abdominal pain R10.9 ; Depression, major, recurrent, moderate 296.32 ; COPD (chronic obstructive pulmonary disease) J44.9 ; Restless legs G25.81 ; Insomnia G47.00 ; Intestinal abscess K63.0 ; HTN (hypertension) I10 and Hypercholesteremia E78.0 [place] [address] [address] Jun, Intestinal abscess K63.0 [place] [address] [address] May, [place] [address] [address] May, [place] [address] [address] May, Unspecified abdominal pain R10.9 [place] [address] [address] May, Depression, major, recurrent, moderate 296.32 ; COPD (chronic obstructive pulmonary disease) J44.9 ; Restless legs G25.81 ; Insomnia G47.00 ; Depression F32.9 ; HTN (hypertension) I10 and Hypercholesterolemia E78.0 [place] [address] [address] Apr, [place] [address] [address] Mar, Cellulitis L03.[address] [address] Feb, Recurrent major depression-severe F33.[address] [address] Feb, Hyperlipemia E78.5 and High blood pressure I10 [address] [address] Feb, COPD (chronic obstructive pulmonary disease) J44.9 ; Restless legs G25.81 ; Insomnia G47.00 ; Depression F32.9 and HTN (hypertension) I10 [facility] [id number] [place] [address] Jan, [facility] [id number] [place] [address] Jan, Generalized anxiety disorder F41.1 and Recurrent major depression- severe F33.2 [facility] [address] [address] Jan, Bronchitis J40 [facility] [id number] [place] [address] Jan, Shoulder pain, right M25.511 and Low back pain M54.5 [facility] [id number] [place] [address] Jan, [facility] [id number] [place] [address] Oct, [facility] [id number] [place] [address] Oct, Generalized anxiety disorder 300.02 and Depression, major, severe recurrence 296.33 [facility] [id number] [place] [address] Oct, [facility] [id number] [place] [address] Oct, Depression, major, recurrent, moderate 296.32 [facility] [id number] [place] [address] August, [facility] [id number] [place] [address] Jul, [facility] [id number] [place] [address] Jul, [facility] [id number] [place] [address] Jun, [facility] [address] [place] [address] Jun, [facility] [place] [facility] [address] [id number] [place] [address] May, 2014 [facility] [place] [facility] [address] [id number] [place] [address] May, 2014 [facility] [place] [facility] [address] [facility] [id number] [place] [address] May, 2014 [facility] [place] [facility] [address] [id number] [place] [address] May, 2014 [facility] [place] [facility] [address] [facility] [id number] [place] [address] May, 2014 [facility] [place] [facility] [address] [facility] [id number] [place] [address] May, 2014 [facility] [place] [facility] [id number] [place] [address] May, 2014 [facility] [place] [facility] [address] [facility] [id number] [place] [address] May, 2014 [facility] [place] [facility] [address] [facility] [id number] [place] [address] May, 2014 [facility] [place] [facility] [address] [facility] [id number] [place] [address] May, 2014 [facility] [place] [facility] [address] [facility] [id number] [place] [address] May, 2014 [facility] [place] [facility] [address] [facility] [id number] [place] [address] May, 2014 [facility] [place] [facility] [address] [facility] [id number] [place] [address] Apr, [facility] [place] [facility] [address] [facility] [id number] [place] [address] Apr, [facility] [place] [facility] [address] [facility] [id number] [address] Apr, [facility] [place] [facility] [address] [id number] [place] [address] Apr, [facility] [place] [facility] [address] [id number] [place] [address] Apr, [facility] [place] [facility] [address] [id number] [place] [address] Apr, [facility] [place] [facility] [address] [id number] [place] [address] Apr, [facility] [place] [facility] [address] [id number] [place] [address] Apr, [facility] [place] [facility] [address] [id number] [place] [address] Apr, [facility] [place] [facility] [address] [id number] [place] [address] Apr, [facility] [place] [facility] [address] [id number] [place] [address] Mar, [facility] [place] [facility] [address] [id number] [place] [address] Mar, [facility] [place] [facility] [address] [id number] [place] [address] Mar, [facility] [place] [facility] [address] [id number] [place] [address] Mar, [facility] [place] [facility] [address] [id number], [place] [address] Mar, [facility] [place] [facility] [address] [id number] [place] [address] Feb, [facility] [place] [facility] [address] [id number] [place] [address] Feb, [facility] [place] [facility] [address] [id number] [place] [address] Dec, [facility] [place] [facility] [address] [id number] [place] [address] Dec, [facility] [address] [id number] [place] [address] Nov, [facility] [place] [facility] [address] [id number] [place] [address] Nov, [facility] [place] [facility] [address] [id number] [place] [address] Nov, [facility] [place] [facility] [address] [id number] [place] [address] Nov, [facility] [place] [facility] [address] [id number] [place] [address] Oct, [facility] [place] [facility] [address] [id number] [place] [address] Oct, [facility] [place] [facility] [address] [id number] [place] [address] Sep, [facility] [place] [facility] [address] [id number] [place] [address] Sep, [facility] [place] [facility] [address] [id number] [place] [address] August, [facility] [place] [facility] [address] [id number] [place] [address] August, [facility] [place] [facility] [address] [id number] [place] [address] August, [facility] [place] [facility] [address] [id number] [place] [address] August, [facility] [place] [facility] [address] [id number] [place] [address] Jul, [facility] [place] [facility] [address] [id number] [place] [address] Jul, [facility] [place] [facility] [address] [id number] [place] [address] Jun, [facility] [place] [facility] [address] [id number] [place] [address] Jun, [facility] [place] [facility] [address] [id number] [place] [address] May, [facility] [place] [facility] [address] [id number] [place] [address] May, [facility] [place] [facility] [address] [id number] [place] [address] May, [facility] [place] [facility] [address] [id number] [place] [address] May, [facility] [place] [facility] [address] [id number] [place] [address] May, [facility] [place] [facility] [address] [id number] [place] [address] May, [facility] [place] [facility] [address] [id number] [place] [address] May, [facility] [place] [facility] [address] [id number] [place] [address] Apr, [facility] [place] [facility] [address] [id number] [place] [address] Apr, [facility] [place] [facility] [address] [id number] [place] [address] Apr, [facility] [place] [facility] [address] [id number] [place] [address] Apr, [facility] [place] [facility] [address] [id number] [place] [address] Apr, [facility] [place] [facility] [address] [id number] [place] [address] Apr, [facility] [place] [facility] [address] [id number] [place] [address] Apr, [facility] [place] [facility] [address] [id number] [place] [address] Apr, [facility] [address] [id number] [place] [address] Apr, [facility] [place] [facility] [address] [id number] [place] [address] Apr, [facility] [address] [id number] [place] [address] Mar, [facility] [place] [facility] [address] [id number] [place] [address] Mar, [facility] [place] [facility] [address] [id number] [place] [address] Mar, [facility] [place] [facility] [address] [id number] [place] [address] Mar, [facility] [address] [id number] [place] [address] Feb, [facility] [place] [facility] [address] [id number] [place] [address] Feb, [facility] [place] [facility] [address] [id number] [place] [address] Feb, [facility] [place] [facility] [address] [id number] [place] [address] Feb, [facility] [place] [facility] [address] [id number] [place] [address] Feb, [facility] [place] [facility] [address] [id number] [place] [address] 16 Feb, 2013 [facility] [place] [facility] [address] [id number] [place] [address] 10 Jan, 2013 [facility] [place] [facility] [address] [id number] [place] [address] 10 Jan, 2013 [facility] [place] [facility] [address] [id number] [place] [address] Dec, [facility] [place] [facility] [address] [id number] [place] [address] Dec, [facility] [address] [id number] [place] [address] Nov, [facility] [address] [id number] [place] [address] Nov, [facility] [address] [id number] [place] [address] Oct, [facility] [address] [id number] [place] [address] Sep, [facility] [address] [id number] [place] [address] August, [facility] [address] [id number] [place] [address] Jul, [facility] [address] [id number] [place] [address] Jul, [facility] [address] [id number] [place] [address] Jul, [facility] [address] [id number] [place] [address] Jul, [facility] [address] [id number] [place] [address] Jul, [facility] [address] [id number] [place] [address] Jun, [facility] [address] [id number] [place] [address] May, [facility] [address] [id number] [place] [address] Apr, [facility] [address] [id number] [place] [address] Mar, [facility] [address] [id number] [address] Mar, [facility] [place] [facility] [address] [id number] [place] [address] Mar, [facility] [place] [facility] [address] [id number] [place] [address] Jan, [facility] [place] [facility] [address] [id number] [place] [address] Jan, [facility] [place] [facility] [address] [id number] [place] [address] Jan, [facility] [place] [facility] [address] [id number] [place] [address] Jan, [facility] [place] [facility] [address] [id number] [place] [address] Dec, [facility] [place] [facility] [address] [id number] [place] [address] Dec, [facility] [place] [facility] [address] [id number] [place] [address] Nov, [facility] [place] [facility] [address] [id number] [place] [address] Nov, [facility] [place] [facility] [address] [id number] [place] [address] Nov, [facility] [place] [facility] [address] [id number] [place] [address] Nov, [facility] [place] [facility] [address] [id number] [place] [address] Nov, [facility] [place] [facility] [address] [id number] [place] [address] Oct, [facility] [place] [facility] [address] [id number] [place] [address] Oct, [facility] [place] [facility] [address] [id number] [place] [address] Oct, [facility] [place] [facility] [address] [id number] [place] [address] Sep, [facility] [place] [facility] [address] [id number] [place] [address] August, [facility] [place] [facility] [address] [id number] [place] [address] Jul, [facility] [place] [facility] [address] [id number] [place] [address] Jul, [facility] [place] [facility] [address] [id number] [place] [address] Jul, [facility] [place] [facility] [address] [id number] [place] [address] Jul, [facility] [place] [facility] [address] [id number] [place] [address] Jun, [facility] [place] [facility] [address] [id number] [place] [address] Jun, [facility] [place] [facility] [address] [id number] [place] [address] Jun, [facility] [place] [facility] [address] [id number] [place] [address] Jun, [facility] [place] [facility] [address] [facility] [id number] [place] [address] Jun, [facility] [place] [facility] [address] [id number] [place] [address] May, [facility] [place] [facility] [address] [id number] [place] [address] 28 May, 2011 [facility] [place] [facility] [address] [id number] [place] [address] 27 May, 2011 [facility] [place] [facility] [address] [id number] [place] [address] 24 May, 2011 [facility] [place] [facility] [address] [id number] [place] [address] Apr, [facility] [address] [id number] [address] Mar, [facility] [id number] [address] Mar, [facility] [id number] [address] Jun, [facility] [id number] [address] Feb, [facility] [id number] [address] Jan, [facility] [id number] [place] [address] Jan, [facility] [id number] [address] Jan, [facility] [id number] [address] Dec, [facility] [id number] [address] May, [facility] [id number] [address] Feb, [facility] [id number] [address] Feb, [facility] [id number] [address] Feb, IMMUNIZATIONS No Known Immunizations SOCIAL HISTORY [...]
--- OUTSIDE RECORDS SUMMARY | 2018-11-21 21:49 | XMS REPORT ---
Author Author LYNN SOTO Organization [facility] Address [address] [place] [address] Care Team Providers Care Planning Intern Name Role Phone LYNN SOTO Unavailable PROBLEMS Type Condition ICD9-CM Code AFC00-JG Code Onset Dates Condition Status SNOMED Code Problem Lumbar spondylosis M47.816 Active 450997163 Problem Insomnia G47.00 Active 348432301 Problem Facet arthropathy, lumbar M46.96 Active 204976589 Problem Depression F32.9 Active 17283369 Problem COPD (chronic obstructive pulmonary disease) J44.9 Active 73538633 Problem Constipation due to outlet dysfunction K59.02 Active 97831693 Problem Restless legs G25.81 Active 29487894 Problem Anxiety F41.9 Active 63197970 Problem Generalized anxiety disorder F41.1 Active 86789342 Problem Psychophysiological insomnia F51.04 Active 519711824 Problem Chronic obstructive pulmonary disease, unspecified COPD type J44.9 Active 44120095 Problem Major depressive disorder, recurrent episode, moderate with anxious distress F33.1 Active 847101573 Problem Gastroesophageal reflux disease, esophagitis presence not specified K21.9 Active 252777186 Problem Essential hypertension I10 Active 30220942 Problem Hypercholesterolemia E78.00 Active 58682074 Problem Other obesity due to excess calories E66.09 Active 458965187 Problem Other chronic pain G89.29 Active 30518454 Problem COPD exacerbation J44.1 Active 105601225 ALLERGIES No Information ENCOUNTERS Encounter Location Date Diagnosis [facility] [address] [facility] [id number] [address] Oct, [facility] [address] [id number] [address] Sep, [facility] [address] [facility] [id number], [place] [address] Jul, Thrush B37.0 and Hypercholesterolemia E78.00 [place] [id number] [place] [address] Jul, Severe episode of recurrent major depressive disorder, without psychotic features F33.2 [place] [id number] [place] [address] Jul, Severe episode of recurrent major depressive disorder, without psychotic features F33.2 ; Generalized anxiety disorder F41.1 ; Psychophysiological insomnia F51.04 and Other care home (current) drug therapy Z79.899 [place] [id number] [place] [address] Jun, Severe episode of recurrent major depressive disorder, without psychotic features F33.2 [place] [id number] [place] [address] Jun, Severe episode of recurrent major depressive disorder, without psychotic features F33.2 [place] [address] [address] Jun, Severe episode of recurrent major depressive disorder, without psychotic features F33.2 ; Generalized anxiety disorder F41.1 and Psychophysiological insomnia F51.04 [place] [id number] [place] [address] May, COPD (chronic obstructive pulmonary disease) J44.9 [place] [id number] [place] [address] May, COPD (chronic obstructive pulmonary disease) J44.9 ; Essential hypertension I10 ; Gastroesophageal reflux disease, esophagitis presence not specified K21.9 ; Viral illness B34.9 and Tongue lesion K14.8 [place] [address] [address] Apr, Severe episode of recurrent major depressive disorder, without psychotic features F33.2 [place] [id number] [place] [address] Mar, COPD exacerbation J44.1 [place] [id number] [place] [address] Mar, COPD (chronic obstructive pulmonary disease) J44.9 [place] [address] [address] Feb, Severe episode of recurrent major depressive disorder, without psychotic features F33.2 ; Generalized anxiety disorder F41.1 and Psychophysiological insomnia F51.04 [place] [address] [address] Dec, Fever, unspecified fever cause R50.9 ; Nausea and vomiting, intractability of vomiting not specified, unspecified vomiting type R11.2 ; Wheezing on auscultation R06.2 ; COPD (chronic obstructive pulmonary disease) J44.9 and Acute maxillary sinusitis, recurrence not specified J01.00 [place] [address] [address] Dec, Edema of lower extremity R60.0 [place] [address] [address] Dec, [place] [address] [address] Nov, Essential hypertension I10 [place] [address] [address] Nov, [place] [address] [address] Nov, Severe episode of recurrent major depressive disorder, without psychotic features F33.2 ; Generalized anxiety disorder F41.1 and Psychophysiological insomnia F51.04 [place] [address] [address] Nov, COPD (chronic obstructive pulmonary disease) J44.9 ; Essential hypertension I10 ; Lumbar spondylosis M47.816 ; Generalized anxiety disorder F41.1 ; Rash and nonspecific skin eruption R21 ; Pain in joints of right hand M25.541 ; Pain in joints of left hand M25.542 and Hypercholesterolemia E78.00 [place] [id number] [place] [address] Nov, Rash and nonspecific skin eruption R21 and Non-intractable vomiting with nausea, unspecified vomiting type R11.2 [place] [id number] [place] [address] Oct, [place] [address] [address] Sep, Pain aggravated by standing R52 [place] [address] [address] Sep, Other depression F32.89 [place] [address] [address] Sep, Chronic obstructive pulmonary disease, unspecified COPD type J44.9 ; Pain aggravated by standing R52 ; Other depression F32.89 ; Major depressive disorder, recurrent episode, moderate with anxious distress F33.1 ; Restless legs G25.81 ; Insomnia G47.00 ; Gastroesophageal reflux disease with esophagitis K21.0 ; Essential hypertension I10 ; Generalized anxiety disorder F41.1 and Hypercholesterolemia E78.00 [place] [id number] [place] [address] Jul, Fever, unspecified fever cause R50.9 and Cough R05 [place] [id number] [place] [address] Jul, [place] [address] [address] Jul, Gastroesophageal reflux disease with esophagitis K21.0 [place] [id number] [place] [address] Jul, [place] [id number] [place] [address] Jun, COPD (chronic obstructive pulmonary disease) J44.9 ; Restless legs G25.81 ; Insomnia G47.00 ; Essential hypertension I10 ; Major depressive disorder, recurrent episode, moderate with anxious distress F33.1 ; Gastroesophageal reflux disease with esophagitis K21.0 ; Constipation due to outlet dysfunction K59.02 ; Hypercholesterolemia E78.00 ; Other chronic pain G89.29 and Generalized abdominal pain R10.84 [place] [id number] [place] [address] Jun, [place] [address] [address] Jun, Acute recurrent sinusitis, unspecified location J01.91 and COPD exacerbation J44.[address] [address] Jun, Lumbago with sciatica, unspecified side M54.40 [place] [address] [id number] [place] [address] May, [address] [address] May, Severe episode of recurrent major depressive disorder, without psychotic features F33.2 [place] [id number] [place] [address] Apr, COPD (chronic obstructive pulmonary disease) J44.9 [...] index (BMI) of 32.0-32.9 in adult Z68.[address] [address] Apr, Severe episode of recurrent major depressive disorder, without psychotic features F33.2 [place] [id number] [place] [address] Feb, Severe episode of recurrent major depressive disorder, without psychotic features F33.2 [address] [facility] [id number] [place] [address] Feb, Severe episode of recurrent major depressive disorder, without psychotic features F33.2 ; Generalized anxiety disorder F41.1 and Psychophysiological insomnia F51.04 [facility] [id number] [place] [address] Dec, Severe episode of recurrent major depressive disorder, without psychotic features F33.2 ; Generalized anxiety disorder F41.1 and Psychophysiological insomnia F51.04 [facility] [address] [address] Nov, Severe episode of recurrent major depressive disorder, without psychotic features F33.2 ; Generalized anxiety disorder F41.1 and Psychophysiological insomnia F51.04 [place] [address] [address] Nov, [facility] [address] [address] Nov, Depression F32.9 [place] [address] [address] Nov, Depression F32.9 ; Insomnia G47.00 and Anxiety F41.9 [place] [id number] [place] [address] August, COPD (chronic obstructive pulmonary disease) J44.9 ; Depression F32.9 ; Anxiety F41.9 ; Major depressive disorder, recurrent episode, moderate with anxious distress F33.1 ; Insomnia G47.00 ; Restless legs G25.81 ; Essential hypertension I10 and Pure hypercholesterolemia E78.00 [place] [address] [address] August, Acute intractable tension-type headache G44.201 [facility] [id number] [place] [address] Jul, Left wrist pain M25.532 and Strain of left wrist, initial encounter S66.912A [place] [id number] [place] [address] 14 May, 2016 Gastroesophageal reflux disease with esophagitis K21.0 and Anxiety F41.9 [place] [id number] [place] [address] 13 May, 2016 Major depressive disorder, recurrent episode, moderate with anxious distress F33.1 ; COPD (chronic obstructive pulmonary disease) J44.9 ; Restless legs G25.81 ; Insomnia G47.00 ; Essential hypertension I10 ; Anxiety F41.9 ; Constipation due to outlet dysfunction K59.02 ; Torsion of intestine, bowel or colon K56.2 ; Hypercholesterolemia E78.00 and Gastroesophageal reflux disease with esophagitis K21.0 [place] [id number] [place] [address] Feb, [address] [address] 20 Dec, 2015 Essential hypertension I10 ; Depression F32.9 ; Anxiety F41.9 ; Constipation due to outlet dysfunction K59.02 ; Torsion of intestine, bowel or colon K56.2 ; COPD (chronic obstructive pulmonary disease) J44.9 ; Insomnia G47.00 ; Restless legs G25.81 and Gastroesophageal reflux disease with esophagitis K21.0 [place] [id number] [place] [address] 08 Dec, 2015 Essential hypertension I10 ; Major depressive disorder, recurrent episode, moderate with anxious distress F33.1 ; COPD (chronic obstructive pulmonary disease) J44.9 ; Restless legs G25.81 ; Insomnia G47.00 ; Constipation due to outlet dysfunction K59.02 and Gastroesophageal reflux disease without esophagitis K21.9 [place] [id number] [place] [address] 07 Dec, 2015 Major depressive disorder, recurrent episode, moderate with anxious distress F33.1 [place] [id number] [place] [address] Sep, [place] [address] [place] [address] Sep, Nausea R11.0 [place] [address] [address] Sep, Lower abdominal pain R10.30 ; COPD (chronic obstructive pulmonary disease) J44.9 ; Restless legs G25.81 ; Essential hypertension I10 ; Depression F32.9 ; Other chronic pain G89.29 ; Lumbago with sciatica, unspecified side M54.40 and Primary insomnia F51.01 [place] [address] [address] August, [address] [address] August, COPD (chronic obstructive pulmonary disease) J44.9 ; Insomnia G47.00 ; Depression F32.9 and Constipation due to outlet dysfunction K59.02 [place] [id number] [place] [address] August, [place] [id number] [place] [address] August, [place] [address] [address] August, Nausea & vomiting R11.2 [place] [id number] [place] [address] Jun, [place] [address] [address] Jun, Unspecified abdominal pain R10.9 ; Depression, major, recurrent, moderate 296.32 ; COPD (chronic obstructive pulmonary disease) J44.9 ; Restless legs G25.81 ; Insomnia G47.00 ; Intestinal abscess K63.0 ; HTN (hypertension) I10 and Hypercholesteremia E78.0 [place] [id number] [place] [address] Jun, Intestinal abscess K63.0 [facility] [id number] [place] [address] May, [facility] [address] [address] May, [facility] [address] [address] May, Unspecified abdominal pain R10.9 [place] [address] [address] May, Depression, major, recurrent, moderate 296.32 ; COPD (chronic obstructive pulmonary disease) J44.9 ; Restless legs G25.81 ; Insomnia G47.00 ; Depression F32.9 ; HTN (hypertension) I10 and Hypercholesterolemia E78.0 [place] [id number] [place] [address] Apr, [place] [address] [address] Mar, Cellulitis L03.90 [place] [address] [address] Feb, Recurrent major depression-severe F33.2 [place] [id number] [place] [address] Feb, Hyperlipemia E78.5 and High blood pressure I10 [place] [id number] [place] [address] Feb, COPD (chronic obstructive pulmonary disease) J44.9 ; Restless legs G25.81 ; Insomnia G47.00 ; Depression F32.9 and HTN (hypertension) I10 [place] [id number] [place] [address] Jan, [place] [id number] [place] [address] Jan, Generalized anxiety disorder F41.1 and Recurrent major depression- severe F33.2 [facility] [address] [address] Jan, Bronchitis J40 [facility] [id number] [place] [address] Jan, Shoulder pain, right M25.511 and Low back pain M54.5 [facility] [id number] [place] [address] Jan, [facility] [id number] [place] [address] Oct, [facility] [id number] [place] [address] Oct, Generalized anxiety disorder 300.02 and Depression, major, severe recurrence 296.33 [facility] [id number] [place] [address] Oct, [facility] [id number] [place] [address] Oct, Depression, major, recurrent, moderate 296.32 [facility] [id number] [place] [address] August, [facility] [address] [place] [address] Jul, [facility] [address] [place] [address] Jul, [facility] [id number] [address] Jun, [facility] [id number] [place] [address] Jun, [facility] [address] [address] May, [facility] [id number] [place] [address] May, [facility] [place] [facility] [address] [id number] [place] [address] May, 2014 [facility] [place] [facility] [address] [id number] [place] [address] May, 2014 [facility] [place] [facility] [address] [id number] [place] [address] May, 2014 [facility] [place] [facility] [address] [id number] [place] [address] May, 2014 [facility] [place] [facility] [address] [id number] [place] [address] May, 2014 [facility] [place] [facility] [address] [id number] [place] [address] May, 2014 [facility] [place] [facility] [address] [id number] [place] [address] May, 2014 [facility] [place] [facility] [address] [id number] [place] [address] May, 2014 [facility] [place] [facility] [address] [id number] [place] [address] May, 2014 [facility] [place] [facility] [address] [id number] [place] [address] May, 2014 [facility] [place] [facility] [address] [id number] [place] [address] Apr, [facility] [place] [facility] [address] [id number] [place] [address] Apr, [facility] [place] [facility] [address] [id number] [place] [address] Apr, [facility] [place] [facility] [address] [id number] [place] [address] Apr, [facility] [place] [facility] [address] [id number] [place] [address] Apr, [facility] [place] [facility] [address] [id number] [place] [address] 15 Apr, 2014 [facility] [address] [id number] [place] [address] Apr, [facility] [place] [facility] [address] [id number] [place] [address] Apr, [facility] [address] [id number] [place] [address] Apr, [facility] [place] [facility] [address] [id number] [place] [address] Apr, [facility] [address] [id number] [place] [address] Mar, [facility] [address] [id number] [place] [address] Mar, [facility] [place] [facility] [address] [id number] [place] [address] Mar, [facility] [address] [id number] [place] [address] Mar, [facility] [place] [facility] [address] [id number] [place] [address] Mar, [facility] [address] [id number] [place] [address] Feb, [facility] [place] [facility] [address] [id number] [place] [address] Feb, [facility] [place] [facility] [address] [id number] [place] [address] Dec, [facility] [place] [facility] [address] [id number] [place] [address] Dec, [facility] [place] [facility] [address] [id number] [place] [address] Nov, [facility] [place] [facility] [address] [id number] [place] [address] Nov, [facility] [place] [facility] [address] [id number] [place] [address] Nov, [facility] [place] [facility] [address] [id number] [place] [address] Nov, [facility] [place] [facility] [address] [id number] [place] [address] Oct, [facility] [place] [facility] [address] [id number] [place] [address] Oct, [facility] [place] [facility] [address] [id number] [place] [address] Sep, [facility] [place] [facility] [address] [id number] [place] [address] Sep, [facility] [place] [facility] [address] [id number] [place] [address] August, [facility] [place] [facility] [address] [id number] [place] [address] August, [facility] [place] [facility] [address] [id number] [place] [address] August, [facility] [place] [facility] [address] [id number] [place] [address] August, [facility] [place] [facility] [address] [id number] [place] [address] Jul, [facility] [place] [facility] [address] [id number] [place] [address] Jul, [facility] [place] [facility] [address] [id number] [place] [address] Jun, [facility] [place] [facility] [address] [id number] [place] [address] Jun, [facility] [place] [facility] [address] [id number] [place] [address] May, [facility] [place] [facility] [address] [id number] [place] [address] May, [facility] [place] [facility] [address] [id number] [place] [address] May, [facility] [place] [facility] [address] [id number] [place] [address] May, [facility] [place] [facility] [address] [id number] [place] [address] May, [facility] [place] [facility] [address] [id number] [place] [address] May, [facility] [place] [facility] [address] [id number] [place] [address] May, [facility] [place] [facility] [address] [id number] [place] [address] Apr, [facility] [place] [facility] [address] [id number] [place] [address] Apr, [facility] [place] [facility] [address] [id number] [place] [address] Apr, [facility] [place] [facility] [address] [id number] [place] [address] Apr, [facility] [place] [facility] [address] [id number] [place] [address] Apr, [facility] [place] [facility] [address] [id number] [place] [address] Apr, [facility] [place] [facility] [address] [id number] [place] [address] Apr, [facility] [place] [facility] [address] [id number] [place] [address] Apr, [facility] [place] [facility] [address] [id number] [place] [address] Apr, [facility] [place] [facility] [address] [id number] [place] [address] Apr, [facility] [place] [facility] [address] [id number] [place] [address] Mar, [facility] [place] [facility] [address] [id number] [place] [address] Mar, [facility] [place] [facility] [address] [id number] [place] [address] Mar, [facility] [place] [facility] [address] [id number] [place] [address] Mar, [facility] [place] [facility] [address] [id number] [place] [address] Feb, [facility] [place] [facility] [address] [id number] [place] [address] Feb, [facility] [place] [facility] [address] [id number] [place] [address] Feb, [facility] [place] [facility] [address] [id number], [place] [address] Feb, [facility] [place] [facility] [address] [id number] [place] [address] Feb, [facility] [place] [facility] [address] [id number], [place] [address] Feb, [facility] [place] [facility] [address] [id number], [place] [address] Jan, [facility] [place] [facility] [address] [id number], [place] [address] Jan, [facility] [place] [facility] [address] [id number], [place] [address] 05 Dec, 2012 [facility] [place] [facility] [address] [id number], [place] [address] 04 Dec, 2012 [facility] [place] [facility] [address] [id number], [place] [address] Nov, [facility] [facility] [address] [id number] [address] Nov, [facility] [address] [id number] [place] [address] Oct, [facility] [address] [id number] [place] [address] Sep, [facility] [address] [facility] [id number] [place] [address] August, [facility] [address] [id number] [place] [address] Jul, [facility] [address] [id number] [place] [address] Jul, [facility] [address] [facility] [id number] [place] [address] Jul, [facility] [id number] [place] [address] Jul, [facility] [address] [facility] [id number] [place] [address] Jul, [facility] [address] [id number] [place] [address] Jun, [facility] [address] [id number] [place] [address] May, [facility] [address] [id number] [place] [address] Apr, [facility] [address] [id number], [place] [address] Mar, [facility] [address] [id number] [place] [address] Mar, [facility] [address] [facility] [id number] [place] [address] Mar, [facility] [address] [id number] [address] Jan, [facility] [place] [facility] [address] [id number] [place] [address] Jan, [facility] [place] [facility] [address] [id number] [place] [address] Jan, [facility] [place] [facility] [address] [id number] [place] [address] Jan, [facility] [place] [facility] [address] [id number] [place] [address] Dec, [facility] [place] [facility] [address] [id number] [place] [address] Dec, [facility] [place] [facility] [address] [id number] [place] [address] Nov, [facility] [place] [facility] [address] [id number] [place] [address] Nov, [facility] [place] [facility] [address] [id number] [place] [address] Nov, [facility] [place] [facility] [address] [id number] [place] [address] Nov, [facility] [place] [facility] [address] [id number] [place] [address] Nov, [facility] [place] [facility] [address] [id number] [place] [address] Oct, [facility] [place] [facility] [address] [id number] [place] [address] Oct, [facility] [place] [facility] [address] [id number] [place] [address] Oct, [facility] [place] [facility] [address] [id number] [place] [address] Sep, [facility] [place] [facility] [address] [id number] [place] [address] August, [facility] [place] [facility] [address] [id number] [place] [address] Jul, [facility] [place] [facility] [address] [id number] [place] [address] Jul, [facility] [place] [address] [id number] [place] [address] Jul, [facility] [place] [facility] [address] [id number] [place] [address] 05 Jul, 2011 [facility] [place] [facility] [address] [id number] [place] [address] 29 Jun, 2011 [facility] [place] [facility] [address] [id number] [place] [address] 28 Jun, 2011 [facility] [place] [facility] [address] [id number] [place] [address] Jun, [facility] [place] [facility] [address] [id number] [place] [address] Jun, [facility] [place] [facility] [address] [id number] [place] [address] 15 Jun, 2011 [facility] [place] [facility] [address] [id number] [place] [address] May, [facility] [place] [address] [id number] [place] [address] May, [facility] [place] [facility] [address] [id number] [place] [address] May, [facility] [place] [facility] [address] [id number] [place] [address] May, [facility] [place] [address] [id number] [place] [address] Apr, [facility] [place] [address] [id number] [place] [address] Mar, [facility] [address] [id number] [place] [address] Mar, [facility] [address] [id number] [address] Jun, [facility] [id number] [address] Feb, [facility] [id number] [address] Jan, [facility] [id number] [address] Jan, [facility] [id number] [address] Jan, [facility] [id number] [place] [address] Dec, [facility] [id number] [address] May, [facility] [id number] [address] Feb, [facility] [id number], [place] [address] Feb, [facility] [address] [id number] [address] Feb, IMMUNIZATIONS No Known Immunizations SOCIAL HISTORY [...]
--- OUTSIDE RECORDS SUMMARY | 2018-11-21 21:49 | XMS REPORT ---
Author Author LYNN SOTO [facility] Address [address] [place] [address] Care Team Providers Care Yard Caller Name Role Phone LYNN SOTO Unavailable PROBLEMS Type Condition ICD9-CM Code UUY15-LL Code Onset Dates Condition Status SNOMED Code Problem Lumbar spondylosis M47.816 Active 126185711 Problem Insomnia G47.00 Active 295543731 Problem Facet arthropathy, lumbar M46.96 Active 824994657 Problem Depression F32.9 Active 92682063 Problem COPD (chronic obstructive pulmonary disease) J44.9 Active 63101650 Problem Constipation due to outlet dysfunction K59.02 Active 98899956 Problem Restless legs G25.81 Active 36123823 Problem Anxiety F41.9 Active 60112665 Problem Generalized anxiety disorder F41.1 Active 74589691 Problem Psychophysiological insomnia F51.04 Active 866828636 Problem Chronic obstructive pulmonary disease, unspecified COPD type J44.9 Active 97749699 Problem Major depressive disorder, recurrent episode, moderate with anxious distress F33.1 Active 990846788 Problem Gastroesophageal reflux disease, esophagitis presence not specified K21.9 Active 829417328 Problem Essential hypertension I10 Active 09812563 Problem Hypercholesterolemia E78.00 Active 17603267 Problem Other obesity due to excess calories E66.09 Active 224175964 Problem Other chronic pain G89.29 Active 03038795 Problem COPD exacerbation J44.1 Active 122636719 ALLERGIES No Information ENCOUNTERS Encounter Location Date Diagnosis [facility] [address] [id number] [address] Oct, [facility] [address] [id number] [address] Sep, [facility] [address] [id number], [place] [address] Jul, Thrush B37.0 and Hypercholesterolemia E78.00 [facility] [id number] [place] [address] Jul, Severe episode of recurrent major depressive disorder, without psychotic features F33.2 [facility] [id number] [place] [address] Jul, Severe episode of recurrent major depressive disorder, without psychotic features F33.2 ; Generalized anxiety disorder F41.1 ; Psychophysiological insomnia F51.04 and Other fpc (current) drug therapy Z79.899 [facility] [place] [id number] [place] [address] Jun, Severe episode of recurrent major depressive disorder, without psychotic features F33.2 [facility] [id number] [place] [address] Jun, Severe episode of recurrent major depressive disorder, without psychotic features F33.2 [place] [address] [address] Jun, Severe episode of recurrent major depressive disorder, without psychotic features F33.2 ; Generalized anxiety disorder F41.1 and Psychophysiological insomnia F51.04 [facility] [place] [id number] [place] [address] May, COPD (chronic obstructive pulmonary disease) J44.9 [facility] [place] [id number] [place] [address] May, COPD (chronic obstructive pulmonary disease) J44.9 ; Essential hypertension I10 ; Gastroesophageal reflux disease, esophagitis presence not specified K21.9 ; Viral illness B34.9 and Tongue lesion K14.8 [place] [address] [address] Apr, Severe episode of recurrent major depressive disorder, without psychotic features F33.2 [facility] [place] [id number] [place] [address] Mar, COPD exacerbation J44.1 [place] [place] [id number] [place] [address] Mar, COPD (chronic obstructive pulmonary disease) J44.9 [facility] [place] [address] [address] Feb, Severe episode of recurrent major depressive disorder, without psychotic features F33.2 ; Generalized anxiety disorder F41.1 and Psychophysiological insomnia F51.04 [place] [address] [address] Dec, Fever, unspecified fever cause R50.9 ; Nausea and vomiting, intractability of vomiting not specified, unspecified vomiting type R11.2 ; Wheezing on auscultation R06.2 ; COPD (chronic obstructive pulmonary disease) J44.9 and Acute maxillary sinusitis, recurrence not specified J01.00 [place] [address] [address] Dec, Edema of lower extremity R60.0 [place] [address] [address] Dec, [place] [place] [address] [address] Nov, Essential hypertension I10 [place] [address] [address] Nov, [facility] [address] [address] Nov, Severe episode of recurrent major depressive disorder, without psychotic features F33.2 ; Generalized anxiety disorder F41.1 and Psychophysiological insomnia F51.04 [place] [place] [address] [address] Nov, COPD (chronic obstructive pulmonary disease) J44.9 ; Essential hypertension I10 ; Lumbar spondylosis M47.816 ; Generalized anxiety disorder F41.1 ; Rash and nonspecific skin eruption R21 ; Pain in joints of right hand M25.541 ; Pain in joints of left hand M25.542 and Hypercholesterolemia E78.00 [place] [id number] [place] [address] Nov, Rash and nonspecific skin eruption R21 and Non-intractable vomiting with nausea, unspecified vomiting type R11.2 [facility] [place] [id number] [place] [address] Oct, [place] [address] [address] Sep, Pain aggravated by standing R52 [place] [address] [address] Sep, Other depression F32.89 [facility] [place] [address] [address] Sep, Chronic obstructive pulmonary disease, unspecified COPD type J44.9 ; Pain aggravated by standing R52 ; Other depression F32.89 ; Major depressive disorder, recurrent episode, moderate with anxious distress F33.1 ; Restless legs G25.81 ; Insomnia G47.00 ; Gastroesophageal reflux disease with esophagitis K21.0 ; Essential hypertension I10 ; Generalized anxiety disorder F41.1 and Hypercholesterolemia E78.00 [facility] [place] [id number] [place] [address] Jul, Fever, unspecified fever cause R50.9 and Cough R05 [place] [id number] [place] [address] Jul, [place] [address] [address] Jul, Gastroesophageal reflux disease with esophagitis K21.0 [place] [place] [id number] [place] [address] Jul, [place] [id number] [place] [address] Jun, COPD (chronic obstructive pulmonary disease) J44.9 ; Restless legs G25.81 ; Insomnia G47.00 ; Essential hypertension I10 ; Major depressive disorder, recurrent episode, moderate with anxious distress F33.1 ; Gastroesophageal reflux disease with esophagitis K21.0 ; Constipation due to outlet dysfunction K59.02 ; Hypercholesterolemia E78.00 ; Other chronic pain G89.29 and Generalized abdominal pain R10.84 [facility] [place] [id number] [place] [address] Jun, [place] [address] [address] Jun, Acute recurrent sinusitis, unspecified location J01.91 and COPD exacerbation J44.[address] [address] Jun, Lumbago with sciatica, unspecified side M54.40 [place] [id number] [place] [address] May, [address] [address] May, Severe episode of recurrent major depressive disorder, without psychotic features F33.2 [facility] [place] [id number] [place] [address] Apr, COPD (chronic obstructive pulmonary disease) J44.9 [...] index (BMI) of 32.0-32.9 in adult Z68.[address] [address] Apr, Severe episode of recurrent major depressive disorder, without psychotic features F33.2 [place] [id number] [place] [address] Feb, Severe episode of recurrent major depressive disorder, without psychotic features F33.2 and Restless legs G25.81 [facility] [id number] [place] [address] Feb, Severe episode of recurrent major depressive disorder, without psychotic features F33.2 ; Generalized anxiety disorder F41.1 and Psychophysiological insomnia F51.04 [facility] [id number] [place] [address] Dec, Severe episode of recurrent major depressive disorder, without psychotic features F33.2 ; Generalized anxiety disorder F41.1 and Psychophysiological insomnia F51.04 [facility] [address] [address] Nov, Severe episode of recurrent major depressive disorder, without psychotic features F33.2 ; Generalized anxiety disorder F41.1 and Psychophysiological insomnia F51.04 [place] [address] [address] Nov, [facility] [address] [address] Nov, Depression F32.9 [place] [address] [address] Nov, Depression F32.9 ; Insomnia G47.00 and Anxiety F41.9 [place] [id number] [place] [address] August, COPD (chronic obstructive pulmonary disease) J44.9 ; Depression F32.9 ; Anxiety F41.9 ; Major depressive disorder, recurrent episode, moderate with anxious distress F33.1 ; Insomnia G47.00 ; Restless legs G25.81 ; Essential hypertension I10 and Pure hypercholesterolemia E78.00 [place] [address] [address] August, Acute intractable tension-type headache G44.201 [facility] [id number] [place] [address] Jul, Left wrist pain M25.532 and Strain of left wrist, initial encounter S66.912A [place] [address] [place] [address] 14 May, 2016 Gastroesophageal reflux disease with esophagitis K21.0 and Anxiety F41.9 [place] [id number] [place] [address] 13 May, 2016 Major depressive disorder, recurrent episode, moderate with anxious distress F33.1 ; COPD (chronic obstructive pulmonary disease) J44.9 ; Restless legs G25.81 ; Insomnia G47.00 ; Essential hypertension I10 ; Anxiety F41.9 ; Constipation due to outlet dysfunction K59.02 ; Torsion of intestine, bowel or colon K56.2 ; Hypercholesterolemia E78.00 and Gastroesophageal reflux disease with esophagitis K21.0 [place] [id number] [place] [address] Feb, [address] [address] 20 Dec, 2015 Essential hypertension I10 ; Depression F32.9 ; Anxiety F41.9 ; Constipation due to outlet dysfunction K59.02 ; Torsion of intestine, bowel or colon K56.2 ; COPD (chronic obstructive pulmonary disease) J44.9 ; Insomnia G47.00 ; Restless legs G25.81 and Gastroesophageal reflux disease with esophagitis K21.0 [place] [id number] [place] [address] 08 Dec, 2015 Essential hypertension I10 ; Major depressive disorder, recurrent episode, moderate with anxious distress F33.1 ; COPD (chronic obstructive pulmonary disease) J44.9 ; Restless legs G25.81 ; Insomnia G47.00 ; Constipation due to outlet dysfunction K59.02 and Gastroesophageal reflux disease without esophagitis K21.9 [place] [id number] [place] [address] 07 Dec, 2015 Major depressive disorder, recurrent episode, moderate with anxious distress F33.1 [place] [id number] [place] [address] Sep, [place] [address] [place] [address] Sep, Nausea R11.0 [place] [address] [address] Sep, Lower abdominal pain R10.30 ; COPD (chronic obstructive pulmonary disease) J44.9 ; Restless legs G25.81 ; Essential hypertension I10 ; Depression F32.9 ; Other chronic pain G89.29 ; Lumbago with sciatica, unspecified side M54.40 and Primary insomnia F51.01 [place] [address] [address] August, [address] [address] August, COPD (chronic obstructive pulmonary disease) J44.9 ; Insomnia G47.00 ; Depression F32.9 and Constipation due to outlet dysfunction K59.02 [place] [id number] [place] [address] August, [place] [id number] [place] [address] August, [place] [address] [address] August, Nausea & vomiting R11.2 [place] [id number] [place] [address] Jun, [place] [address] [address] Jun, Unspecified abdominal pain R10.9 ; Depression, major, recurrent, moderate 296.32 ; COPD (chronic obstructive pulmonary disease) J44.9 ; Restless legs G25.81 ; Insomnia G47.00 ; Intestinal abscess K63.0 ; HTN (hypertension) I10 and Hypercholesteremia E78.0 [place] [id number] [place] [address] Jun, Intestinal abscess K63.0 [facility] [id number] [place] [address] May, [facility] [address] [address] May, [facility] [address] [address] May, Unspecified abdominal pain R10.9 [place] [address] [address] May, Depression, major, recurrent, moderate 296.32 ; COPD (chronic obstructive pulmonary disease) J44.9 ; Restless legs G25.81 ; Insomnia G47.00 ; Depression F32.9 ; HTN (hypertension) I10 and Hypercholesterolemia E78.0 [place] [id number] [place] [address] Apr, [place] [address] [address] Mar, Cellulitis L03.90 [place] [address] [address] Feb, Recurrent major depression-severe F33.2 [place] [id number] [place] [address] Feb, Hyperlipemia E78.5 and High blood pressure I10 [place] [id number] [place] [address] Feb, COPD (chronic obstructive pulmonary disease) J44.9 ; Restless legs G25.81 ; Insomnia G47.00 ; Depression F32.9 and HTN (hypertension) I10 [place] [id number] [place] [address] Jan, [place] [id number] [place] [address] Jan, Generalized anxiety disorder F41.1 and Recurrent major depression- severe F33.2 [facility] [address] [address] Jan, Bronchitis J40 [facility] [id number] [place] [address] Jan, Shoulder pain, right M25.511 and Low back pain M54.5 [facility] [id number] [place] [address] Jan, [facility] [id number] [place] [address] Oct, [facility] [id number] [place] [address] Oct, Generalized anxiety disorder 300.02 and Depression, major, severe recurrence 296.33 [facility] [id number] [place] [address] Oct, [facility] [id number] [place] [address] Oct, Depression, major, recurrent, moderate 296.32 [facility] [id number] [place] [address] August, [facility] [address] [place] [address] Jul, [facility] [address] [place] [address] Jul, [facility] [address] [id number] [address] Jun, [facility] [id number] [place] [address] Jun, [facility] [address] [address] May, [facility] [address] [place] [address] May, [facility] [place] [facility] [address] [id number] [place] [address] May, 2014 [facility] [place] [facility] [address] [id number] [place] [address] May, 2014 [facility] [place] [facility] [address] [id number] [place] [address] May, 2014 [facility] [place] [facility] [address] [id number] [place] [address] May, 2014 [facility] [place] [facility] [address] [id number] [place] [address] May, 2014 [facility] [place] [facility] [address] [id number] [place] [address] May, 2014 [facility] [place] [facility] [address] [id number] [place] [address] May, 2014 [facility] [place] [facility] [address] [id number] [place] [address] May, 2014 [facility] [place] [facility] [address] [id number] [place] [address] May, 2014 [facility] [place] [facility] [address] [id number] [place] [address] May, 2014 [facility] [place] [facility] [address] [id number] [place] [address] Apr, [facility] [place] [facility] [address] [id number] [place] [address] Apr, [facility] [place] [facility] [address] [id number] [place] [address] Apr, [facility] [place] [facility] [address] [id number] [place] [address] Apr, [facility] [place] [facility] [address] [id number] [place] [address] Apr, [facility] [place] [facility] [address] [id number] [place] [address] 15 Apr, 2014 [facility] [address] [id number] [place] [address] Apr, [facility] [place] [facility] [address] [id number] [place] [address] Apr, [facility] [place] [facility] [address] [id number] [place] [address] Apr, [facility] [place] [facility] [address] [id number] [place] [address] Apr, [facility] [place] [facility] [address] [id number] [place] [address] Mar, [facility] [address] [id number] [place] [address] Mar, [facility] [place] [facility] [address] [id number] [place] [address] Mar, [facility] [address] [id number] [place] [address] Mar, [facility] [place] [facility] [address] [id number] [place] [address] Mar, [facility] [address] [id number] [place] [address] Feb, [facility] [place] [facility] [address] [id number] [place] [address] Feb, [facility] [place] [facility] [address] [id number] [place] [address] Dec, [facility] [place] [facility] [address] [id number] [place] [address] Dec, [facility] [place] [facility] [address] [id number] [place] [address] Nov, [facility] [place] [facility] [address] [id number] [place] [address] Nov, [facility] [place] [facility] [address] [id number] [place] [address] Nov, [facility] [place] [facility] [address] [id number] [place] [address] Nov, [facility] [place] [facility] [address] [id number] [place] [address] Oct, [facility] [place] [facility] [address] [id number] [place] [address] Oct, [facility] [place] [facility] [address] [id number] [place] [address] Sep, [facility] [place] [facility] [address] [id number] [place] [address] Sep, [facility] [place] [facility] [address] [id number] [place] [address] August, [facility] [place] [facility] [address] [id number] [place] [address] August, [facility] [place] [facility] [address] [id number] [place] [address] August, [facility] [place] [facility] [address] [id number] [place] [address] August, [facility] [place] [facility] [address] [id number] [place] [address] Jul, [facility] [place] [facility] [address] [id number] [place] [address] Jul, [facility] [place] [facility] [address] [id number] [place] [address] Jun, [facility] [place] [facility] [address] [id number] [place] [address] Jun, [facility] [place] [facility] [address] [id number] [place] [address] May, [facility] [place] [facility] [address] [id number] [place] [address] May, [facility] [place] [facility] [address] [id number] [place] [address] May, [facility] [place] [facility] [address] [id number] [place] [address] May, [facility] [place] [facility] [address] [id number] [place] [address] May, [facility] [place] [facility] [address] [id number] [place] [address] May, [facility] [place] [facility] [address] [id number] [place] [address] May, [facility] [place] [facility] [address] [id number] [place] [address] Apr, [facility] [place] [facility] [address] [id number] [place] [address] Apr, [facility] [place] [facility] [address] [id number] [place] [address] Apr, [facility] [place] [facility] [address] [id number] [place] [address] Apr, [facility] [place] [facility] [address] [id number] [place] [address] Apr, [facility] [place] [facility] [address] [id number] [place] [address] Apr, [facility] [place] [facility] [address] [id number] [place] [address] Apr, [facility] [place] [facility] [address] [id number] [place] [address] Apr, [facility] [place] [facility] [address] [id number] [place] [address] Apr, [facility] [place] [facility] [address] [id number] [place] [address] Apr, [facility] [place] [facility] [address] [id number] [place] [address] Mar, [facility] [place] [facility] [address] [id number] [place] [address] Mar, [facility] [place] [facility] [address] [id number] [place] [address] Mar, [facility] [place] [facility] [address] [id number] [place] [address] Mar, [facility] [place] [facility] [address] [id number] [place] [address] Feb, [facility] [place] [facility] [address] [id number] [place] [address] Feb, [facility] [place] [facility] [address] [id number] [place] [address] Feb, [facility] [place] [facility] [address] [id number], [place] [address] Feb, [facility] [place] [facility] [address] [id number] [place] [address] Feb, [facility] [place] [facility] [address] [id number], [place] [address] Feb, [facility] [place] [facility] [address] [id number], [place] [address] Jan, [facility] [place] [facility] [address] [id number], [place] [address] Jan, [facility] [place] [facility] [address] [id number], [place] [address] 05 Dec, 2012 [facility] [place] [facility] [address] [id number], [place] [address] 04 Dec, 2012 [facility] [place] [facility] [address] [id number], [place] [address] Nov, [facility] [place] [facility] [address] [id number], [place] [address] Nov, [facility] [address] [id number] [place] [address] Oct, [facility] [address] [id number] [place] [address] Sep, [facility] [address] [facility] [id number] [place] [address] August, [facility] [address] [id number] [place] [address] Jul, [facility] [address] [id number] [place] [address] Jul, [facility] [address] [facility] [id number] [place] [address] Jul, [facility] [id number] [place] [address] Jul, [facility] [address] [facility] [address] [id number] [place] [address] Jul, [facility] [address] [id number] [address] Jun, [facility] [address] [id number] [place] [address] May, [facility] [address] [id number] [place] [address] Apr, [facility] [address] [id number] [address] Mar, [facility] [place] [facility] [address] [id number] [place] [address] Mar, [facility] [address] [facility] [id number] [place] [address] Mar, [facility] [address] [id number] [address] Jan, [facility] [place] [facility] [address] [id number] [place] [address] Jan, [facility] [place] [facility] [address] [id number] [place] [address] Jan, [facility] [place] [facility] [address] [id number] [place] [address] Jan, [facility] [place] [facility] [address] [id number] [place] [address] Dec, [facility] [place] [facility] [address] [id number] [place] [address] Dec, [facility] [place] [facility] [address] [id number] [place] [address] Nov, [facility] [place] [facility] [address] [id number] [place] [address] Nov, [facility] [place] [facility] [address] [id number] [place] [address] Nov, [facility] [place] [facility] [address] [id number] [place] [address] Nov, [facility] [place] [facility] [address] [id number] [place] [address] Nov, [facility] [place] [facility] [address] [id number] [place] [address] Oct, [facility] [place] [facility] [address] [id number] [place] [address] Oct, [facility] [place] [facility] [address] [id number] [place] [address] Oct, [facility] [place] [facility] [address] [id number] [place] [address] Sep, [facility] [place] [facility] [address] [id number] [place] [address] August, [facility] [place] [facility] [address] [id number] [place] [address] Jul, [facility] [place] [facility] [address] [id number] [place] [address] Jul, [facility] [place] [facility] [address] [id number] [place] [address] Jul, [facility] [place] [facility] [address] [id number] [place] [address] 05 Jul, 2011 [facility] [place] [facility] [address] [id number] [place] [address] 29 Jun, 2011 [facility] [place] [facility] [address] [id number] [place] [address] 28 Jun, 2011 [facility] [place] [facility] [address] [id number] [place] [address] Jun, [facility] [place] [facility] [address] [id number] [place] [address] Jun, [facility] [place] [facility] [address] [id number] [place] [address] 15 Jun, 2011 [facility] [place] [facility] [address] [id number] [place] [address] May, [facility] [place] [facility] [address] [id number] [place] [address] May, [facility] [place] [facility] [address] [id number] [place] [address] May, [facility] [place] [facility] [address] [id number] [place] [address] May, [facility] [place] [facility] [address] [id number] [place] [address] Apr, [facility] [place] [facility] [address] [id number] [place] [address] Mar, [facility] [place] [facility] [address] [id number] [place] [address] Mar, [facility] [place] [facility] [address] [id number] [address] Jun, [facility] [id number] [address] Feb, [facility] [id number] [address] Jan, [facility] [id number] [address] Jan, [facility] [id number] [address] Jan, [facility] [id number] [address] Dec, [facility] [id number], [place] [address] May, [facility] [id number] [address] Feb, [facility] [id number] [address] Feb, [facility] [address] [id number] [address] Feb, IMMUNIZATIONS No Known Immunizations SOCIAL HISTORY Never Assessed REASON FOR VISIT PLAN OF CARE VITAL SIGNS MEDICATIONS Unknown Medications RESULTS No Results PROCEDURES Procedure Date Ordered Result Body Site PSYTX PT&/FAMILY 45 MINUTES Mar 10, 2013 INSTRUCTIONS MEDICATIONS ADMINISTERED No Known Medications MEDICAL [...]
--- OUTSIDE RECORDS SUMMARY | 2018-11-21 21:50 | XMS REPORT ---
Author Author Migration, Doctor Organization [facility] Address Unknown Phone Unavailable Care Team Providers Care Medical Examiner Name Role Phone Migration, Doctor Unavailable Unavailable PROBLEMS Type Condition ICD9-CM Code THS33-EZ Code Onset Dates Condition Status SNOMED Code Problem Lumbar spondylosis M47.816 Active 208096255 Problem Insomnia G47.00 Active 828100716 Problem Facet arthropathy, lumbar M46.96 Active 848373168 Problem Depression F32.9 Active 92983128 Problem COPD (chronic obstructive pulmonary disease) J44.9 Active 54373215 Problem Constipation due to outlet dysfunction K59.02 Active 21720470 Problem Restless legs G25.81 Active 02570467 Problem Anxiety F41.9 Active 02363103 Problem Generalized anxiety disorder F41.1 Active 51454478 Problem Psychophysiological insomnia F51.04 Active 792796750 Problem Chronic obstructive pulmonary disease, unspecified COPD type J44.9 Active 15441366 Problem Major depressive disorder, recurrent episode, moderate with anxious distress F33.1 Active 536230445 Problem Gastroesophageal reflux disease, esophagitis presence not specified K21.9 Active 121493023 Problem Essential hypertension I10 Active 48669477 Problem Hypercholesterolemia E78.00 Active 22951216 Problem Other obesity due to excess calories E66.09 Active 139001351 Problem Other chronic pain G89.29 Active 41300977 Problem COPD exacerbation J44.1 Active 795776945 ALLERGIES No Information ENCOUNTERS Encounter Location Date Diagnosis [facility] [place] [address] [address] August, [place] [address] [place] [id number] [place] [address] Jul, Thrush B37.0 and Hypercholesterolemia E78.00 [facility] [place] [address] [address] Jul, Severe episode of recurrent major depressive disorder, without psychotic features F33.2 [place] [id number] [place] [address] Jul, Severe episode of recurrent major depressive disorder, without psychotic features F33.2 ; Generalized anxiety disorder F41.1 ; Psychophysiological insomnia F51.04 and Other halfway (current) drug therapy Z79.899 [place] [address] [address] Jun, Severe episode of recurrent major depressive disorder, without psychotic features F33.2 [place] [address] [address] Jun, Severe episode of recurrent major depressive disorder, without psychotic features F33.[address] [address] Jun, Severe episode of recurrent major depressive disorder, without psychotic features F33.2 ; Generalized anxiety disorder F41.1 and Psychophysiological insomnia F51.[address] [address] May, COPD (chronic obstructive pulmonary disease) J44.[address] [address] May, COPD (chronic obstructive pulmonary disease) J44.9 ; Essential hypertension I10 ; Gastroesophageal reflux disease, esophagitis presence not specified K21.9 ; Viral illness B34.9 and Tongue lesion K14.8 [place] [id number] [place] [address] Apr, Severe episode of recurrent major depressive disorder, without psychotic features F33.2 [place] [id number] [place] [address] Mar, COPD exacerbation J44.[address] [address] 05 Mar, 2018 COPD (chronic obstructive pulmonary disease) J44.9 [place] [address] [address] Feb, Severe episode of recurrent major depressive disorder, without psychotic features F33.2 ; Generalized anxiety disorder F41.1 and Psychophysiological insomnia F51.04 [place] [address] [address] Dec, Fever, unspecified fever cause R50.9 ; Nausea and vomiting, intractability of vomiting not specified, unspecified vomiting type R11.2 ; Wheezing on auscultation R06.2 ; COPD (chronic obstructive pulmonary disease) J44.9 and Acute maxillary sinusitis, recurrence not specified J01.00 [place] [address] [address] Dec, Edema of lower extremity R60.0 [place] [address] [address] Dec, [place] [address] [address] Nov, Essential hypertension I10 [place] [address] [address] Nov, [place] [address] [address] Nov, Severe episode of recurrent major depressive disorder, without psychotic features F33.2 ; Generalized anxiety disorder F41.1 and Psychophysiological insomnia F51.04 [place] [address] [address] Nov, COPD (chronic obstructive pulmonary disease) J44.9 ; Essential hypertension I10 ; Lumbar spondylosis M47.816 ; Generalized anxiety disorder F41.1 ; Rash and nonspecific skin eruption R21 ; Pain in joints of right hand M25.541 ; Pain in joints of left hand M25.542 and Hypercholesterolemia E78.00 [place] [id number] [place] [address] Nov, Rash and nonspecific skin eruption R21 and Non-intractable vomiting with nausea, unspecified vomiting type R11.2 [place] [id number] [place] [address] Oct, [place] [address] [place] [id number] Sep, Pain aggravated by standing R52 [place] [address] [address] Sep, Other depression F32.89 [place] [address] [address] Sep, Chronic obstructive pulmonary disease, unspecified COPD type J44.9 ; Pain aggravated by standing R52 ; Other depression F32.89 ; Major depressive disorder, recurrent episode, moderate with anxious distress F33.1 ; Restless legs G25.81 ; Insomnia G47.00 ; Gastroesophageal reflux disease with esophagitis K21.0 ; Essential hypertension I10 ; Generalized anxiety disorder F41.1 and Hypercholesterolemia E78.00 [place] [address] [address] Jul, Fever, unspecified fever cause R50.9 and Cough R05 [place] [address] [address] Jul, [place] [address] [address] Jul, Gastroesophageal reflux disease with esophagitis K21.0 [place] [id number] [place] [address] Jul, [place] [address] [address] Jun, COPD (chronic obstructive pulmonary disease) J44.9 ; Restless legs G25.81 ; Insomnia G47.00 ; Essential hypertension I10 ; Major depressive disorder, recurrent episode, moderate with anxious distress F33.1 ; Gastroesophageal reflux disease with esophagitis K21.0 ; Constipation due to outlet dysfunction K59.02 ; Hypercholesterolemia E78.00 ; Other chronic pain G89.29 and Generalized abdominal pain R10.84 [place] [address] [address] Jun, [place] [address] [id number] [place] [address] Jun, Acute recurrent sinusitis, unspecified location J01.91 and COPD exacerbation J44.1 [place] [id number] [place] [address] Jun, Lumbago with sciatica, unspecified side M54.40 [place] [id number] [place] [address] May, [place] [id number] [place] [address] May, Severe episode of recurrent major depressive disorder, without psychotic features F33.2 [place] [id number] [place] [address] Apr, COPD (chronic obstructive pulmonary disease) J44.9 [...] index (BMI) of 32.0-32.9 in adult Z68.32 [place] [address] [place] [address] Apr, Severe episode of recurrent major depressive disorder, without psychotic features F33.2 [place] [id number] [place] [address] Feb, Severe episode of recurrent major depressive disorder, without psychotic features F33.2 and Restless legs G25.81 [place] [address] [place] [address] Feb, Severe episode of recurrent major depressive disorder, without psychotic features F33.2 ; Generalized anxiety disorder F41.1 and Psychophysiological insomnia F51.04 [place] [id number] [place] [address] Dec, Severe episode of recurrent major depressive disorder, without psychotic features F33.2 ; Generalized anxiety disorder F41.1 and Psychophysiological insomnia F51.04 [place] [address] [address] Nov, Severe episode of recurrent major depressive disorder, without psychotic features F33.2 ; Generalized anxiety disorder F41.1 and Psychophysiological insomnia F51.04 [place] [address] [address] Nov, [place] [address] [address] Nov, Depression F32.9 [place] [address] [address] Nov, Depression F32.9 ; Insomnia G47.00 and Anxiety F41.9 [place] [address] [address] August, COPD (chronic obstructive pulmonary disease) J44.9 ; Depression F32.9 ; Anxiety F41.9 ; Major depressive disorder, recurrent episode, moderate with anxious distress F33.1 ; Insomnia G47.00 ; Restless legs G25.81 ; Essential hypertension I10 and Pure hypercholesterolemia E78.00 [place] [address] [place] [id number] [place] [address] August, Acute intractable tension-type headache G44.201 [facility] [address] [address] Jul, Left wrist pain M25.532 and Strain of left wrist, initial encounter S66.912A [place] [address] [address] May, Gastroesophageal reflux disease with esophagitis K21.0 and Anxiety F41.9 [place] [address] [place] [address] 13 May, 2016 Major depressive disorder, recurrent episode, moderate with anxious distress F33.1 ; COPD (chronic obstructive pulmonary disease) J44.9 ; Restless legs G25.81 ; Insomnia G47.00 ; Essential hypertension I10 ; Anxiety F41.9 ; Constipation due to outlet dysfunction K59.02 ; Torsion of intestine, bowel or colon K56.2 ; Hypercholesterolemia E78.00 and Gastroesophageal reflux disease with esophagitis K21.0 [place] [id number] [place] [address] 07 Feb, 2016 [place] [address] [address] 20 Dec, 2015 Essential hypertension I10 ; Depression F32.9 ; Anxiety F41.9 ; Constipation due to outlet dysfunction K59.02 ; Torsion of intestine, bowel or colon K56.2 ; COPD (chronic obstructive pulmonary disease) J44.9 ; Insomnia G47.00 ; Restless legs G25.81 and Gastroesophageal reflux disease with esophagitis K21.0 [place] [address] [id number] [place] [address] 08 Dec, 2015 Essential hypertension I10 ; Major depressive disorder, recurrent episode, moderate with anxious distress F33.1 ; COPD (chronic obstructive pulmonary disease) J44.9 ; Restless legs G25.81 ; Insomnia G47.00 ; Constipation due to outlet dysfunction K59.02 and Gastroesophageal reflux disease without esophagitis K21.9 [place] [id number] [place] [address] 07 Dec, 2015 Major depressive disorder, recurrent episode, moderate with anxious distress F33.1 [place] [id number] [place] [address] Sep, [place] [address] [place] [address] [id number] [place] [address] Sep, Nausea R11.0 [place] [address] [address] Sep, Lower abdominal pain R10.30 ; COPD (chronic obstructive pulmonary disease) J44.9 ; Restless legs G25.81 ; Essential hypertension I10 ; Depression F32.9 ; Other chronic pain G89.29 ; Lumbago with sciatica, unspecified side M54.40 and Primary insomnia F51.01 [place] [address] [address] August, [place] [address] [address] August, COPD (chronic obstructive pulmonary disease) J44.9 ; Insomnia G47.00 ; Depression F32.9 and Constipation due to outlet dysfunction K59.02 [place] [address] [address] August, [place] [address] [address] August, [place] [address] [address] August, Nausea & vomiting R11.2 [place] [address] [address] Jun, [place] [address] [address] Jun, Unspecified abdominal pain R10.9 ; Depression, major, recurrent, moderate 296.32 ; COPD (chronic obstructive pulmonary disease) J44.9 ; Restless legs G25.81 ; Insomnia G47.00 ; Intestinal abscess K63.0 ; HTN (hypertension) I10 and Hypercholesteremia E78.0 [place] [id number] [place] [address] Jun, Intestinal abscess K63.0 [place] [address] [place] [address] [id number] [place] [address] May, [place] [address] [place] [id number] May, [place] [address] [place] [address] [id number] [place] [address] May, Unspecified abdominal pain R10.9 [place] [address] [place] [address] [id number] [place] [address] May, Depression, major, recurrent, moderate 296.32 ; COPD (chronic obstructive pulmonary disease) J44.9 ; Restless legs G25.81 ; Insomnia G47.00 ; Depression F32.9 ; HTN (hypertension) I10 and Hypercholesterolemia E78.0 [place] [address] [id number] [place] [address] Apr, [place] [address] [place] [address] [id number] [place] [address] Mar, Cellulitis L03.90 [place] [address] [address] Feb, Recurrent major depression-severe F33.2 [place] [address] [id number] [place] [address] Feb, Hyperlipemia E78.5 and High blood pressure I10 [place] [address] [place] [id number] [place] [address] Feb, COPD (chronic obstructive pulmonary disease) J44.9 ; Restless legs G25.81 ; Insomnia G47.00 ; Depression F32.9 and HTN (hypertension) I10 [place] [id number] [place] [address] Jan, [place] [address] [address] Jan, Generalized anxiety disorder F41.1 and Recurrent major depression- severe F33.2 [place] [address] [id number] [place] [address] Jan, Bronchitis J40 [place] [address] [place] [address] Jan, Shoulder pain, right M25.511 and Low back pain M54.5 [facility] [place] [id number] [place] [address] Jan, [facility] [place] [id number] [place] [address] Oct, [facility] [place] [id number] [place] [address] Oct, Generalized anxiety disorder 300.02 and Depression, major, severe recurrence 296.33 [facility] [place] [id number] [place] [address] Oct, [facility] [place] [id number] [place] [address] Oct, Depression, major, recurrent, moderate 296.32 [facility] [place] [id number] [place] [address] August, [facility] [place] [id number] [place] [address] Jul, [facility] [place] [id number] [place] [address] Jul, [facility] [place] [address] [address] Jun, [facility] [place] [address] [place] [id number] [place] [address] Jun, [facility] [place] [address] [place] [address] May, [facility] [place] [id number] [place] [address] May, [facility] [place] [id number] [address] May, [facility] [place] [address] [id number] [place] [address] May, 2014 [facility] [place] [facility] [address] [id number] [place] [address] May, 2014 [facility] [place] [facility] [address] [id number] [place] [address] May, 2014 [facility] [place] [facility] [address] [id number] [place] [address] May, 2014 [facility] [place] [facility] [address] [id number] [place] [address] May, 2014 [facility] [place] [facility] [address] [id number] [place] [address] May, 2014 [facility] [place] [facility] [address] [id number] [place] [address] May, 2014 [facility] [place] [facility] [address] [id number] [place] [address] May, 2014 [facility] [place] [facility] [address] [id number] [place] [address] May, [facility] [place] [facility] [address] [id number] [place] [address] Apr, [facility] [place] [facility] [address] [facility] [id number] [place] [address] Apr, [facility] [place] [facility] [address] [id number] [place] [address] Apr, [facility] [place] [facility] [address] [id number] [place] [address] Apr, [facility] [place] [facility] [address] [id number] [place] [address] Apr, [facility] [place] [facility] [address] [id number] [place] [address] Apr, [facility] [place] [facility] [address] [id number] [address] Apr, [facility] [place] [facility] [address] [id number] [place] [address] Apr, [facility] [place] [facility] [address] [id number] [place] [address] Apr, [facility] [place] [facility] [address] [id number] [place] [address] Apr, [facility] [place] [facility] [address] [id number] [place] [address] Mar, [facility] [place] [facility] [address] [id number] [place] [address] Mar, [facility] [place] [facility] [address] [id number] [place] [address] Mar, [facility] [place] [facility] [address] [id number] [place] [address] Mar, [facility] [place] [facility] [address] [id number] [place] [address] Mar, [facility] [place] [facility] [address] [id number] [place] [address] Feb, [facility] [place] [facility] [address] [id number] [place] [address] Feb, [facility] [place] [facility] [address] [id number] [place] [address] Dec, [facility] [place] [facility] [address] [id number] [place] [address] Dec, [facility] [place] [facility] [address] [id number] [place] [address] Nov, [facility] [place] [facility] [address] [id number] [place] [address] Nov, [facility] [place] [facility] [address] [id number] [place] [address] Nov, [facility] [place] [facility] [address] [id number] [place] [address] Nov, [facility] [place] [facility] [address] [id number] [place] [address] Oct, [facility] [place] [facility] [address] [id number] [place] [address] Oct, [facility] [place] [facility] [address] [id number] [place] [address] Sep, [facility] [place] [facility] [address] [id number] [place] [address] Sep, [facility] [place] [facility] [address] [id number] [place] [address] August, [facility] [place] [facility] [address] [id number] [place] [address] August, [facility] [place] [facility] [address] [id number] [place] [address] August, [facility] [place] [facility] [address] [id number] [place] [address] August, [facility] [place] [facility] [address] [id number] [place] [address] Jul, [facility] [place] [facility] [address] [id number] [place] [address] Jul, [facility] [place] [facility] [address] [id number] [place] [address] Jun, [facility] [place] [facility] [address] [id number] [place] [address] Jun, [facility] [place] [facility] [address] [id number] [place] [address] May, [facility] [place] [facility] [address] [id number] [place] [address] May, [facility] [place] [facility] [address] [id number] [place] [address] May, [facility] [place] [facility] [address] [id number] [place] [address] May, [facility] [place] [facility] [address] [id number] [place] [address] May, [facility] [place] [facility] [address] [id number] [place] [address] May, [facility] [place] [facility] [address] [id number] [place] [address] May, [facility] [place] [facility] [address] [id number] [place] [address] Apr, [facility] [place] [facility] [address] [id number] [place] [address] Apr, [facility] [place] [facility] [address] [id number] [place] [address] Apr, [facility] [place] [facility] [address] [id number] [place] [address] Apr, [facility] [place] [facility] [address] [id number] [place] [address] Apr, [facility] [place] [facility] [address] [id number] [place] [address] Apr, [facility] [place] [facility] [address] [id number] [place] [address] Apr, [facility] [place] [facility] [address] [id number] [place] [address] Apr, [facility] [place] [facility] [address] [id number] [place] [address] Apr, [facility] [place] [facility] [address] [id number] [place] [address] Apr, [facility] [place] [facility] [address] [id number] [place] [address] Mar, [facility] [place] [facility] [address] [id number] [place] [address] Mar, [facility] [place] [facility] [address] [id number] [place] [address] Mar, [facility] [place] [facility] [address] [id number] [place] [address] Mar, [facility] [place] [facility] [address] [id number] [place] [address] Feb, [facility] [place] [facility] [address] [id number] [place] [id number] Feb, [facility] [place] [facility] [address] [id number] [place] [address] Feb, [facility] [place] [facility] [address] [id number] [place] [address] Feb, [facility] [place] [facility] [address] [id number] [place] [address] Feb, [facility] [place] [facility] [address] [id number] [place] [id number] Feb, [facility] [place] [facility] [address] [id number] [place] [address] Jan, [facility] [place] [facility] [address] [id number] [place] [address] Jan, [facility] [place] [facility] [address] [id number] [place] [id number] 05 Dec, 2012 [facility] [place] [facility] [address] [id number] [place] [address] Dec, [facility] [place] [facility] [address] [id number] [place] [address] Nov, [facility] [place] [facility] [address] [id number] [place] [address] Nov, [facility] [place] [facility] [address] [id number] [place] [address] Oct, [facility] [place] [facility] [address] [id number] [place] [id number] 07 Sep, 2012 [facility] [address] [id number] [place] [address] August, [facility] [address] [id number] [place] [id number] 30 Jul, 2012 [facility] [address] [id number] [place] [address] 14 Jul, 2012 [facility] [address] [id number] [place] [address] 10 Jul, 2012 [facility] [address] [id number] [place] [address] Jul, [facility] [address] [id number] [place] [address] Jul, [facility] [address] [id number] [place] [address] Jun, [facility] [address] [id number] [place] [address] May, [facility] [address] [id number] [place] [address] Apr, [facility] [address] [id number] [place] [address] Mar, [facility] [address] [id number] [place] [address] Mar, [facility] [address] [id number] [place] [address] Mar, [facility] [place] [facility] [address] [id number] [place] [address] Jan, [facility] [address] [id number] [place] [address] Jan, [facility] [address] [id number] [place] [address] Jan, [facility] [place] [facility] [address] [id number] [place] [address] Jan, [facility] [place] [facility] [address] [id number] [place] [address] Dec, [facility] [place] [facility] [address] [id number] [place] [address] Dec, [facility] [place] [facility] [address] [id number] [place] [address] Nov, [facility] [place] [facility] [address] [id number] [place] [address] Nov, [facility] [place] [facility] [address] [id number] [place] [address] Nov, [facility] [place] [facility] [address] [id number] [place] [address] Nov, [facility] [place] [facility] [address] [id number] [place] [address] Nov, [facility] [place] [facility] [address] [id number] [place] [address] Oct, [facility] [place] [facility] [address] [id number] [place] [address] Oct, [facility] [place] [facility] [address] [id number] [place] [address] Oct, [facility] [place] [facility] [address] [id number] [place] [address] Sep, [facility] [place] [facility] [address] [id number] [place] [address] August, [facility] [place] [facility] [address] [id number] [place] [address] Jul, [facility] [place] [facility] [address] [id number] [place] [address] Jul, [facility] [place] [facility] [address] [id number] [place] [address] 09 Jul, 2011 [facility] [place] [facility] [address] [id number] [place] [address] 05 Jul, 2011 [facility] [place] [facility] [address] [id number] [place] [address] 29 Jun, 2011 [facility] [place] [facility] [address] [id number] [place] [address] 28 Jun, 2011 [facility] [place] [facility] [address] [id number] [place] [address] 23 Jun, 2011 [facility] [place] [facility] [address] [id number] [place] [address] 21 Jun, 2011 [facility] [place] [facility] [address] [id number] [place] [address] 15 Jun, 2011 [facility] [place] [facility] [address] [id number] [place] [address] 28 May, 2011 [facility] [place] [facility] [address] [id number] [place] [address] 28 May, 2011 [facility] [place] [facility] [address] [id number] [place] [address] 27 May, 2011 [facility] [place] [facility] [address] [id number] [place] [address] 24 May, 2011 [facility] [place] [facility] [address] [id number] [place] [address] Apr, [facility] [place] [facility] [address] [id number] [place] [address] Mar, [facility] [place] [facility] [address] [id number] [place] [address] Mar, [facility] [place] [facility] [address] [id number] [place] [address] 17 Jun, 2010 [facility] [place] [facility] [address] [id number] [place] [address] Feb, [facility] [place] [address] [id number] [address] Jan, [facility] [place] [id number] [address] Jan, [facility] [place] [id number] [address] Jan, [facility] [place] [id number] [place] [address] Dec, [facility] [place] [id number] [address] May, [facility] [place] [id number] [address] Feb, [facility] [place] [id number] [address] Feb, [facility] [place] [id number] [address] Feb, IMMUNIZATIONS No Known Immunizations SOCIAL HISTORY Never Assessed REASON FOR VISIT EMR-[facility] [place] PLAN OF CARE VITAL SIGNS MEDICATIONS Unknown [...]
--- OUTSIDE RECORDS SUMMARY | 2018-11-21 21:50 | XMS REPORT ---
Author Author Migration, Doctor Organization [facility] Address Unknown Phone Unavailable Care Team Providers Care General Surgery Physician Assistant Name Role Phone Migration, Doctor Unavailable Unavailable PROBLEMS Type Condition ICD9-CM Code ZEA72-PB Code Onset Dates Condition Status SNOMED Code Problem Lumbar spondylosis M47.816 Active 074596698 Problem Insomnia G47.00 Active 902157682 Problem Facet arthropathy, lumbar M46.96 Active 485559427 Problem Depression F32.9 Active 14388273 Problem COPD (chronic obstructive pulmonary disease) J44.9 Active 15190951 Problem Constipation due to outlet dysfunction K59.02 Active 29940991 Problem Restless legs G25.81 Active 04278142 Problem Anxiety F41.9 Active 43444216 Problem Generalized anxiety disorder F41.1 Active 84776235 Problem Psychophysiological insomnia F51.04 Active 092082806 Problem Chronic obstructive pulmonary disease, unspecified COPD type J44.9 Active 09129229 Problem Major depressive disorder, recurrent episode, moderate with anxious distress F33.1 Active 905993637 Problem Gastroesophageal reflux disease, esophagitis presence not specified K21.9 Active 387120556 Problem Essential hypertension I10 Active 60206018 Problem Hypercholesterolemia E78.00 Active 45781187 Problem Other obesity due to excess calories E66.09 Active 980828320 Problem Other chronic pain G89.29 Active 82518729 Problem COPD exacerbation J44.1 Active 965662032 ALLERGIES No Information ENCOUNTERS Encounter Location Date Diagnosis [facility] [address] [address] Jul, Thrush B37.0 and Hypercholesterolemia E78.00 [facility] [id number] [place] [address] Jul, Severe episode of recurrent major depressive disorder, without psychotic features F33.2 [facility] [address] [address] Jul, Severe episode of recurrent major depressive disorder, without psychotic features F33.2 ; Generalized anxiety disorder F41.1 ; Psychophysiological insomnia F51.04 and Other [facility]p (current) drug therapy Z79.899 [facility] [id number] [place] [address] Jun, Severe episode of recurrent major depressive disorder, without psychotic features F33.2 [facility] [id number] [place] [address] Jun, Severe episode of recurrent major depressive disorder, without psychotic features F33.2 [facility] [id number] [place] [address] Jun, Severe episode of recurrent major depressive disorder, without psychotic features F33.2 ; Generalized anxiety disorder F41.1 and Psychophysiological insomnia F51.04 [facility] [id number] [place] [address] May, COPD (chronic obstructive pulmonary disease) J44.9 [facility] [id number] [place] [address] May, COPD (chronic obstructive pulmonary disease) J44.9 ; Essential hypertension I10 ; Gastroesophageal reflux disease, esophagitis presence not specified K21.9 ; Viral illness B34.9 and Tongue lesion K14.8 [facility] [id number] [place] [address] Apr, Severe episode of recurrent major depressive disorder, without psychotic features F33.2 [facility] [id number] [place] [address] Mar, COPD exacerbation J44.1 [facility] [id number] [place] [address] Mar, COPD (chronic obstructive pulmonary disease) J44.9 [facility] [id number] [place] [address] Feb, Severe episode of recurrent major depressive disorder, without psychotic features F33.2 ; Generalized anxiety disorder F41.1 and Psychophysiological insomnia F51.04 [facility] [id number] [place] [address] 13 Dec, 2017 Fever, unspecified fever cause R50.9 ; Nausea and vomiting, intractability of vomiting not specified, unspecified vomiting type R11.2 ; Wheezing on auscultation R06.2 ; COPD (chronic obstructive pulmonary disease) J44.9 and Acute maxillary sinusitis, recurrence not specified J01.00 [facility] [address] [address] 07 Dec, 2017 Edema of lower extremity R60.[address] [address] Dec, [facility] [address] [address] Nov, Essential hypertension I10 [address] [address] Nov, [facility] [address] [address] Nov, Severe episode of recurrent major depressive disorder, without psychotic features F33.2 ; Generalized anxiety disorder F41.1 and Psychophysiological insomnia F51.04 [facility] [address] [address] 16 Nov, 2017 COPD (chronic obstructive pulmonary disease) J44.9 ; Essential hypertension I10 ; Lumbar spondylosis M47.816 ; Generalized anxiety disorder F41.1 ; Rash and nonspecific skin eruption R21 ; Pain in joints of right hand M25.541 ; Pain in joints of left hand M25.542 and Hypercholesterolemia E78.[address] [address] Nov, Rash and nonspecific skin eruption R21 and Non-intractable vomiting with nausea, unspecified vomiting type R11.[address] [address] Oct, [facility] [id number] [place] [address] Sep, Pain aggravated by standing R52 [facility] [address] [address] Sep, Other depression F32.89 [facility] [address] [address] Sep, Chronic obstructive pulmonary disease, unspecified COPD type J44.9 ; Pain aggravated by standing R52 ; Other depression F32.89 ; Major depressive disorder, recurrent episode, moderate with anxious distress F33.1 ; Restless legs G25.81 ; Insomnia G47.00 ; Gastroesophageal reflux disease with esophagitis K21.0 ; Essential hypertension I10 ; Generalized anxiety disorder F41.1 and Hypercholesterolemia E78.00 [facility] [address] [address] Jul, Fever, unspecified fever cause R50.9 and Cough R05 [facility] [address] [address] Jul, [facility] [address] [address] Jul, Gastroesophageal reflux disease with esophagitis K21.0 [facility] [id number] [place] [address] Jul, [facility] [address] [address] Jun, COPD (chronic obstructive pulmonary disease) J44.9 ; Restless legs G25.81 ; Insomnia G47.00 ; Essential hypertension I10 ; Major depressive disorder, recurrent episode, moderate with anxious distress F33.1 ; Gastroesophageal reflux disease with esophagitis K21.0 ; Constipation due to outlet dysfunction K59.02 ; Hypercholesterolemia E78.00 ; Other chronic pain G89.29 and Generalized abdominal pain R10.84 [facility] [address] [address] Jun, [facility] [address] [address] Jun, Acute recurrent sinusitis, unspecified location J01.91 and COPD exacerbation J44.1 [facility] [address] [address] Jun, Lumbago with sciatica, unspecified side M54.40 [facility] [id number] [place] [address] May, [facility] [id number] [place] [address] May, Severe episode of recurrent major depressive disorder, without psychotic features F33.2 [place] [id number] [place] [address] Apr, COPD (chronic obstructive pulmonary disease) J44.9 [...] index (BMI) of 32.0-32.9 in adult Z68.32 [address] [place] [address] Apr, Severe episode of recurrent major depressive disorder, without psychotic features F33.2 [facility] [address] [address] Feb, Severe episode of recurrent major depressive disorder, without psychotic features F33.2 and Restless legs G25.81 [facility] [id number] [place] [address] Feb, Severe episode of recurrent major depressive disorder, without psychotic features F33.2 ; Generalized anxiety disorder F41.1 and Psychophysiological insomnia F51.04 [facility] [address] [address] Dec, Severe episode of recurrent major depressive disorder, without psychotic features F33.2 ; Generalized anxiety disorder F41.1 and Psychophysiological insomnia F51.04 [facility] [address] [address] Nov, Severe episode of recurrent major depressive disorder, without psychotic features F33.2 ; Generalized anxiety disorder F41.1 and Psychophysiological insomnia F51.04 [facility] [address] [address] Nov, [address] [address] Nov, Depression F32.[address] [address] Nov, Depression F32.9 ; Insomnia G47.00 and Anxiety F41.9 [facility] [address] [address] August, COPD (chronic obstructive pulmonary disease) J44.9 ; Depression F32.9 ; Anxiety F41.9 ; Major depressive disorder, recurrent episode, moderate with anxious distress F33.1 ; Insomnia G47.00 ; Restless legs G25.81 ; Essential hypertension I10 and Pure hypercholesterolemia E78.[address] [address] August, Acute intractable tension-type headache G44.201 [facility] [id number] [place] [address] Jul, Left wrist pain M25.532 and Strain of left wrist, initial encounter S66.912A [address] [address] May, Gastroesophageal reflux disease with esophagitis K21.0 and Anxiety F41.[address] [address] May, Major depressive disorder, recurrent episode, moderate with anxious distress F33.1 ; COPD (chronic obstructive pulmonary disease) J44.9 ; Restless legs G25.81 ; Insomnia G47.00 ; Essential hypertension I10 ; Anxiety F41.9 ; Constipation due to outlet dysfunction K59.02 ; Torsion of intestine, bowel or colon K56.2 ; Hypercholesterolemia E78.00 and Gastroesophageal reflux disease with esophagitis K21.0 [facility] [id number] [place] [address] Feb, [facility] [address] [address] 20 Dec, 2015 Essential hypertension I10 ; Depression F32.9 ; Anxiety F41.9 ; Constipation due to outlet dysfunction K59.02 ; Torsion of intestine, bowel or colon K56.2 ; COPD (chronic obstructive pulmonary disease) J44.9 ; Insomnia G47.00 ; Restless legs G25.81 and Gastroesophageal reflux disease with esophagitis K21.0 [facility] [id number] [place] [address] 08 Dec, 2015 Essential hypertension I10 ; Major depressive disorder, recurrent episode, moderate with anxious distress F33.1 ; COPD (chronic obstructive pulmonary disease) J44.9 ; Restless legs G25.81 ; Insomnia G47.00 ; Constipation due to outlet dysfunction K59.02 and Gastroesophageal reflux disease without esophagitis K21.9 [facility] [id number] [place] [address] 07 Dec, 2015 Major depressive disorder, recurrent episode, moderate with anxious distress F33.1 [facility] [id number] [place] [address] Sep, [facility] [id number] [place] [address] Sep, Nausea R11.0 [facility] [id number] [place] [address] 15 Sep, 2015 Lower abdominal pain R10.30 ; COPD (chronic obstructive pulmonary disease) J44.9 ; Restless legs G25.81 ; Essential hypertension I10 ; Depression F32.9 ; Other chronic pain G89.29 ; Lumbago with sciatica, unspecified side M54.40 and Primary insomnia F51.01 [facility] [id number] [place] [address] August, [facility] [address] [address] August, COPD (chronic obstructive pulmonary disease) J44.9 ; Insomnia G47.00 ; Depression F32.9 and Constipation due to outlet dysfunction K59.02 [facility] [address] [address] August, [facility] [address] [address] August, [facility] [address] [address] August, Nausea & vomiting R11.2 [facility] [id number] [place] [address] Jun, [facility] [address] [address] Jun, Unspecified abdominal pain R10.9 ; Depression, major, recurrent, moderate 296.32 ; COPD (chronic obstructive pulmonary disease) J44.9 ; Restless legs G25.81 ; Insomnia G47.00 ; Intestinal abscess K63.0 ; HTN (hypertension) I10 and Hypercholesteremia E78.0 [facility] [id number] [place] [address] Jun, Intestinal abscess K63.0 [facility] [id number] [place] [address] May, [facility] [id number] [place] [address] May, [facility] [address] [address] May, Unspecified abdominal pain R10.9 [facility] [address] [address] May, Depression, major, recurrent, moderate 296.32 ; COPD (chronic obstructive pulmonary disease) J44.9 ; Restless legs G25.81 ; Insomnia G47.00 ; Depression F32.9 ; HTN (hypertension) I10 and Hypercholesterolemia E78.0 [facility] [address] [address] Apr, [facility] [address] [address] Mar, Cellulitis L03.[address] [address] Feb, Recurrent major depression-severe F33.[address] [address] Feb, Hyperlipemia E78.5 and High blood pressure I10 [address] [address] Feb, COPD (chronic obstructive pulmonary disease) J44.9 ; Restless legs G25.81 ; Insomnia G47.00 ; Depression F32.9 and HTN (hypertension) I10 [facility] [address] [address] Jan, [address] [address] Jan, Generalized anxiety disorder F41.1 and Recurrent major depression- severe F33.[address] [address] Jan, Bronchitis J40 [facility] [address] [address] Jan, Shoulder pain, right M25.511 and Low back pain M54.5 [facility] [address] [address] Jan, [facility] [id number] [place] [address] Oct, [facility] [id number] [place] [address] Oct, Generalized anxiety disorder 300.02 and Depression, major, severe recurrence 296.33 [facility] [id number] [place] [address] Oct, [facility] [id number] [place] [address] Oct, Depression, major, recurrent, moderate 296.32 [facility] [id number] [place] [address] August, [facility] [id number] [place] [address] Jul, [facility] [id number] [place] [address] Jul, [facility] [id number] [place] [address] Jun, [facility] [address] [place] [address] Jun, [facility] [id number] [place] [address] May, [facility] [address] [place] [address] May, [facility] [id number] [place] [address] May, [facility] [address] [place] [address] May, [facility] [id number] [place] [address] May, 2014 [facility] [place] [facility] [address] [id number] [place] [address] May, 2014 [facility] [place] [facility] [address] [id number] [place] [address] May, 2014 [facility] [place] [facility] [address] [id number] [place] [address] May, 2014 [facility] [place] [facility] [address] [id number] [place] [address] May, 2014 [facility] [place] [facility] [address] [id number] [place] [address] May, 2014 [facility] [place] [facility] [address] [id number] [place] [address] May, 2014 [facility] [place] [facility] [address] [id number] [place] [address] May, 2014 [facility] [place] [facility] [address] [id number] [place] [address] Apr, [facility] [place] [facility] [address] [id number] [place] [address] Apr, [facility] [place] [facility] [address] [facility] [place] [id number] [place] [address] Apr, [facility] [place] [facility] [address] [id number] [place] [address] Apr, [facility] [place] [facility] [address] [id number] [address] Apr, [facility] [place] [facility] [address] [id number] [place] [address] Apr, [facility] [place] [facility] [address] [id number] [place] [address] Apr, [facility] [place] [facility] [address] [id number] [address] Apr, [facility] [place] [facility] [address] [id number] [place] [address] Apr, [facility] [place] [facility] [address] [id number] [place] [address] Apr, [facility] [place] [facility] [address] [id number] [place] [address] Mar, [facility] [place] [facility] [address] [id number] [place] [address] Mar, [facility] [place] [facility] [address] [id number] [place] [address] Mar, [facility] [place] [facility] [address] [id number] [place] [address] Mar, [facility] [place] [facility] [address] [id number] [place] [address] Mar, [facility] [place] [facility] [address] [id number] [place] [address] Feb, [facility] [place] [facility] [address] [id number] [place] [address] Feb, [facility] [place] [facility] [address] [id number] [place] [address] Dec, [facility] [place] [facility] [address] [id number] [place] [address] Dec, [facility] [place] [facility] [address] [id number] [place] [address] Nov, [facility] [place] [facility] [address] [id number] [place] [address] Nov, [facility] [place] [facility] [address] [id number] [place] [address] Nov, [facility] [place] [facility] [address] [id number] [place] [address] Nov, [facility] [place] [facility] [address] [id number] [place] [address] Oct, [facility] [place] [facility] [address] [id number] [place] [address] Oct, [facility] [place] [facility] [address] [id number] [place] [address] Sep, [facility] [place] [facility] [address] [id number] [place] [address] Sep, [facility] [place] [facility] [address] [id number] [place] [address] August, [facility] [place] [facility] [address] [id number] [place] [address] August, [facility] [place] [facility] [address] [id number] [place] [address] August, [facility] [place] [facility] [address] [id number] [place] [address] August, [facility] [place] [facility] [address] [id number] [place] [address] Jul, [facility] [place] [facility] [address] [id number] [place] [address] Jul, [facility] [place] [facility] [address] [id number] [place] [address] Jun, [facility] [place] [facility] [address] [id number] [place] [address] Jun, [facility] [place] [facility] [address] [id number] [place] [address] May, [facility] [place] [facility] [address] [id number] [place] [address] May, [facility] [place] [facility] [address] [id number] [place] [address] May, [facility] [place] [facility] [address] [id number] [place] [address] May, [facility] [place] [facility] [address] [id number] [place] [address] May, [facility] [place] [facility] [address] [id number] [place] [address] May, [facility] [place] [facility] [address] [id number] [place] [address] May, [facility] [place] [facility] [address] [id number] [place] [address] Apr, [facility] [place] [facility] [address] [id number] [place] [address] Apr, [facility] [place] [facility] [address] [id number] [place] [address] Apr, [facility] [place] [facility] [address] [id number] [place] [address] Apr, [facility] [place] [facility] [address] [id number] [place] [address] Apr, [facility] [place] [facility] [address] [id number] [place] [address] Apr, [facility] [place] [facility] [address] [id number] [place] [address] Apr, [facility] [place] [facility] [address] [id number] [place] [address] Apr, [facility] [place] [facility] [address] [id number] [place] [address] Apr, [facility] [place] [facility] [address] [id number] [place] [address] Apr, [facility] [place] [facility] [address] [id number] [place] [address] Mar, [facility] [place] [facility] [address] [id number] [place] [address] Mar, [facility] [place] [facility] [address] [id number] [place] [address] Mar, [facility] [place] [facility] [address] [id number] [place] [address] Mar, [facility] [place] [facility] [address] [id number] [place] [address] Feb, [facility] [place] [facility] [address] [id number] [place] [address] Feb, [facility] [place] [facility] [address] [id number] [place] [address] Feb, [facility] [place] [facility] [address] [id number] [place] [address] Feb, [facility] [place] [facility] [address] [id number] [place] [address] Feb, [facility] [place] [facility] [address] [id number] [place] [address] Feb, [facility] [place] [facility] [address] [id number] [place] [address] Jan, [facility] [place] [facility] [address] [id number] [place] [address] Jan, [facility] [place] [facility] [address] [id number] [place] [address] Dec, [facility] [place] [facility] [address] [id number] [place] [address] Dec, [facility] [place] [facility] [address] [id number] [place] [address] Nov, [facility] [place] [facility] [address] [id number] [place] [address] Nov, [facility] [place] [facility] [address] [id number] [place] [address] Oct, [facility] [place] [facility] [address] [id number] [place] [address] Sep, [facility] [place] [facility] [address] [id number] [place] [address] August, [facility] [address] [id number] [place] [address] 30 Jul, 2012 [facility] [place] [facility] [address] [id number] [place] [address] 14 Jul, 2012 [facility] [address] [id number] [place] [address] Jul, [facility] [address] [id number] [place] [address] Jul, [facility] [address] [id number] [place] [address] Jul, [facility] [address] [id number] [place] [address] Jun, [facility] [address] [id number] [place] [address] May, [facility] [address] [id number] [place] [address] Apr, [facility] [address] [id number] [place] [address] Mar, [facility] [address] [id number] [place] [address] Mar, [facility] [address] [id number] [place] [address] Mar, [facility] [address] [id number] [place] [address] Jan, [facility] [place] [facility] [address] [id number] [place] [address] Jan, [facility] [place] [facility] [address] [id number] [place] [address] Jan, [facility] [place] [facility] [address] [id number] [place] [address] Jan, [facility] [place] [facility] [address] [id number] [place] [address] Dec, [facility] [place] [facility] [address] [id number] [place] [address] Dec, [facility] [place] [facility] [address] [id number] [place] [address] Nov, [facility] [place] [facility] [address] [id number] [place] [address] Nov, [facility] [place] [facility] [address] [id number] [place] [address] Nov, [facility] [place] [facility] [address] [id number] [place] [address] Nov, [facility] [place] [facility] [address] [id number] [place] [address] Nov, [facility] [place] [facility] [address] [id number] [place] [address] Oct, [facility] [place] [facility] [address] [id number] [place] [address] Oct, [facility] [place] [facility] [address] [id number] [place] [address] Oct, [facility] [place] [facility] [address] [id number] [place] [address] Sep, [facility] [place] [facility] [address] [id number] [place] [address] August, [facility] [place] [facility] [address] [id number] [place] [address] Jul, [facility] [place] [facility] [address] [id number] [place] [address] Jul, [facility] [place] [facility] [address] [id number] [place] [address] Jul, [facility] [place] [facility] [address] [id number] [place] [address] 05 Jul, 2011 [facility] [address] [id number] [place] [address] 29 Jun, 2011 [facility] [place] [facility] [address] [id number] [place] [address] 28 Jun, 2011 [facility] [place] [facility] [address] [id number] [place] [address] 23 Jun, 2011 [facility] [place] [facility] [address] [id number] [place] [address] 21 Jun, 2011 [facility] [place] [facility] [address] [id number] [place] [address] 15 Jun, 2011 [facility] [place] [facility] [address] [id number] [place] [address] 28 May, 2011 [facility] [place] [facility] [address] [id number] [place] [address] 28 May, 2011 [facility] [place] [facility] [address] [id number] [place] [address] 27 May, 2011 [facility] [place] [facility] [address] [id number] [place] [address] 24 May, 2011 [facility] [place] [facility] [address] [id number] [place] [address] Apr, [facility] [place] [facility] [address] [id number] [place] [address] Mar, [facility] [place] [facility] [address] [id number] [place] [address] 12 Mar, 2011 [facility] [place] [facility] [address] [id number] [place] [address] 17 Jun, 2010 [facility] [place] [facility] [address] [id number] [place] [address] 08 Feb, 2010 [facility] [place] [facility] [address] [id number] [place] [address] Jan, [facility] [id number] [address] Jan, [facility] [id number] [address] Jan, [facility] [id number] [address] Dec, [facility] [id number] [address] May, [facility] [id number] [address] Feb, [facility] [id number] [address] Feb, [facility] [id number] [address] Feb, IMMUNIZATIONS No Known Immunizations SOCIAL HISTORY Never Assessed REASON FOR VISIT [facility] PLAN OF CARE VITAL SIGNS MEDICATIONS No Known Medications RESULTS No Results PROCEDURES No Known [...]
--- OUTSIDE RECORDS SUMMARY | 2018-11-21 21:51 | XMS REPORT ---
Author Author Migration, Doctor Organization [facility] Address Unknown Phone Unavailable Care Team Providers Care Sunglass Clip Attacher Name Role Phone Migration, Doctor Unavailable Unavailable PROBLEMS Type Condition ICD9-CM Code FVY36-DX Code Onset Dates Condition Status SNOMED Code Problem Lumbar spondylosis M47.816 Active 851780367 Problem Insomnia G47.00 Active 839399242 Problem Facet arthropathy, lumbar M46.96 Active 041439134 Problem Depression F32.9 Active 85514104 Problem COPD (chronic obstructive pulmonary disease) J44.9 Active 09013348 Problem Constipation due to outlet dysfunction K59.02 Active 28438609 Problem Restless legs G25.81 Active 81338203 Problem Anxiety F41.9 Active 82848331 Problem Generalized anxiety disorder F41.1 Active 28458075 Problem Psychophysiological insomnia F51.04 Active 310456806 Problem Chronic obstructive pulmonary disease, unspecified COPD type J44.9 Active 31554838 Problem Major depressive disorder, recurrent episode, moderate with anxious distress F33.1 Active 993464980 Problem Gastroesophageal reflux disease, esophagitis presence not specified K21.9 Active 478989022 Problem Essential hypertension I10 Active 65893172 Problem Hypercholesterolemia E78.00 Active 28525841 Problem Other obesity due to excess calories E66.09 Active 718708781 Problem Other chronic pain G89.29 Active 93514941 Problem COPD exacerbation J44.1 Active 646058910 ALLERGIES No Information ENCOUNTERS Encounter Location Date Diagnosis [facility] [address] [address] August, [place] [id number] [place] [address] Jul, Thrush B37.0 and Hypercholesterolemia E78.00 [facility] [address] [address] Jul, Severe episode of recurrent major depressive disorder, without psychotic features F33.2 [place] [id number] [place] [address] Jul, Severe episode of recurrent major depressive disorder, without psychotic features F33.2 ; Generalized anxiety disorder F41.1 ; Psychophysiological insomnia F51.04 and Other retirement (current) drug therapy Z79.899 [place] [address] [address] Jun, Severe episode of recurrent major depressive disorder, without psychotic features F33.2 [place] [address] [address] Jun, Severe episode of recurrent major depressive disorder, without psychotic features F33.[address] [address] Jun, Severe episode of recurrent major depressive disorder, without psychotic features F33.2 ; Generalized anxiety disorder F41.1 and Psychophysiological insomnia F51.[address] [address] May, COPD (chronic obstructive pulmonary disease) J44.[address] [address] May, COPD (chronic obstructive pulmonary disease) J44.9 ; Essential hypertension I10 ; Gastroesophageal reflux disease, esophagitis presence not specified K21.9 ; Viral illness B34.9 and Tongue lesion K14.8 [place] [id number] [place] [address] Apr, Severe episode of recurrent major depressive disorder, without psychotic features F33.2 [place] [id number] [place] [address] Mar, COPD exacerbation J44.[address] [address] 05 Mar, 2018 COPD (chronic obstructive pulmonary disease) J44.9 [place] [address] [address] Feb, Severe episode of recurrent major depressive disorder, without psychotic features F33.2 ; Generalized anxiety disorder F41.1 and Psychophysiological insomnia F51.04 [place] [address] [address] Dec, Fever, unspecified fever cause R50.9 ; Nausea and vomiting, intractability of vomiting not specified, unspecified vomiting type R11.2 ; Wheezing on auscultation R06.2 ; COPD (chronic obstructive pulmonary disease) J44.9 and Acute maxillary sinusitis, recurrence not specified J01.00 [place] [address] [address] Dec, Edema of lower extremity R60.0 [place] [address] [address] Dec, [place] [address] [address] Nov, Essential hypertension I10 [place] [address] [address] Nov, [place] [address] [address] Nov, Severe episode of recurrent major depressive disorder, without psychotic features F33.2 ; Generalized anxiety disorder F41.1 and Psychophysiological insomnia F51.04 [place] [address] [address] Nov, COPD (chronic obstructive pulmonary disease) J44.9 ; Essential hypertension I10 ; Lumbar spondylosis M47.816 ; Generalized anxiety disorder F41.1 ; Rash and nonspecific skin eruption R21 ; Pain in joints of right hand M25.541 ; Pain in joints of left hand M25.542 and Hypercholesterolemia E78.00 [place] [id number] [place] [address] Nov, Rash and nonspecific skin eruption R21 and Non-intractable vomiting with nausea, unspecified vomiting type R11.2 [place] [id number] [place] [address] Oct, [place] [address] [place] [id number] Sep, Pain aggravated by standing R52 [place] [address] [address] Sep, Other depression F32.89 [place] [address] [address] Sep, Chronic obstructive pulmonary disease, unspecified COPD type J44.9 ; Pain aggravated by standing R52 ; Other depression F32.89 ; Major depressive disorder, recurrent episode, moderate with anxious distress F33.1 ; Restless legs G25.81 ; Insomnia G47.00 ; Gastroesophageal reflux disease with esophagitis K21.0 ; Essential hypertension I10 ; Generalized anxiety disorder F41.1 and Hypercholesterolemia E78.00 [place] [address] [address] Jul, Fever, unspecified fever cause R50.9 and Cough R05 [place] [address] [address] Jul, [place] [address] [address] Jul, Gastroesophageal reflux disease with esophagitis K21.0 [place] [id number] [place] [address] Jul, [place] [address] [address] Jun, COPD (chronic obstructive pulmonary disease) J44.9 ; Restless legs G25.81 ; Insomnia G47.00 ; Essential hypertension I10 ; Major depressive disorder, recurrent episode, moderate with anxious distress F33.1 ; Gastroesophageal reflux disease with esophagitis K21.0 ; Constipation due to outlet dysfunction K59.02 ; Hypercholesterolemia E78.00 ; Other chronic pain G89.29 and Generalized abdominal pain R10.84 [place] [address] [address] Jun, [place] [id number] [place] [address] Jun, Acute recurrent sinusitis, unspecified location J01.91 and COPD exacerbation J44.1 [place] [id number] [place] [address] Jun, Lumbago with sciatica, unspecified side M54.40 [place] [id number] [place] [address] May, [place] [id number] [place] [address] May, Severe episode of recurrent major depressive disorder, without psychotic features F33.2 [place] [id number] [place] [address] Apr, COPD (chronic obstructive pulmonary disease) J44.9 [...] index (BMI) of 32.0-32.9 in adult Z68.32 [place] [address] [place] [address] Apr, Severe episode of recurrent major depressive disorder, without psychotic features F33.2 [place] [id number] [place] [address] Feb, Severe episode of recurrent major depressive disorder, without psychotic features F33.2 and Restless legs G25.81 [place] [address] [place] [address] Feb, Severe episode of recurrent major depressive disorder, without psychotic features F33.2 ; Generalized anxiety disorder F41.1 and Psychophysiological insomnia F51.04 [place] [id number] [place] [address] Dec, Severe episode of recurrent major depressive disorder, without psychotic features F33.2 ; Generalized anxiety disorder F41.1 and Psychophysiological insomnia F51.04 [place] [address] [address] Nov, Severe episode of recurrent major depressive disorder, without psychotic features F33.2 ; Generalized anxiety disorder F41.1 and Psychophysiological insomnia F51.04 [place] [address] [address] Nov, [place] [address] [address] Nov, Depression F32.9 [place] [address] [address] Nov, Depression F32.9 ; Insomnia G47.00 and Anxiety F41.9 [place] [address] [address] August, COPD (chronic obstructive pulmonary disease) J44.9 ; Depression F32.9 ; Anxiety F41.9 ; Major depressive disorder, recurrent episode, moderate with anxious distress F33.1 ; Insomnia G47.00 ; Restless legs G25.81 ; Essential hypertension I10 and Pure hypercholesterolemia E78.00 [place] [id number] [place] [address] August, Acute intractable tension-type headache G44.201 [facility] [address] [address] Jul, Left wrist pain M25.532 and Strain of left wrist, initial encounter S66.912A [place] [address] [address] May, Gastroesophageal reflux disease with esophagitis K21.0 and Anxiety F41.9 [place] [address] [place] [address] 13 May, 2016 Major depressive disorder, recurrent episode, moderate with anxious distress F33.1 ; COPD (chronic obstructive pulmonary disease) J44.9 ; Restless legs G25.81 ; Insomnia G47.00 ; Essential hypertension I10 ; Anxiety F41.9 ; Constipation due to outlet dysfunction K59.02 ; Torsion of intestine, bowel or colon K56.2 ; Hypercholesterolemia E78.00 and Gastroesophageal reflux disease with esophagitis K21.0 [place] [id number] [place] [address] 07 Feb, 2016 [place] [address] [address] 20 Dec, 2015 Essential hypertension I10 ; Depression F32.9 ; Anxiety F41.9 ; Constipation due to outlet dysfunction K59.02 ; Torsion of intestine, bowel or colon K56.2 ; COPD (chronic obstructive pulmonary disease) J44.9 ; Insomnia G47.00 ; Restless legs G25.81 and Gastroesophageal reflux disease with esophagitis K21.0 [place] [id number] [place] [address] 08 Dec, 2015 Essential hypertension I10 ; Major depressive disorder, recurrent episode, moderate with anxious distress F33.1 ; COPD (chronic obstructive pulmonary disease) J44.9 ; Restless legs G25.81 ; Insomnia G47.00 ; Constipation due to outlet dysfunction K59.02 and Gastroesophageal reflux disease without esophagitis K21.9 [place] [id number] [place] [address] 07 Dec, 2015 Major depressive disorder, recurrent episode, moderate with anxious distress F33.1 [place] [id number] [place] [address] Sep, [place] [id number] [place] [address] Sep, Nausea R11.0 [place] [address] [address] Sep, Lower abdominal pain R10.30 ; COPD (chronic obstructive pulmonary disease) J44.9 ; Restless legs G25.81 ; Essential hypertension I10 ; Depression F32.9 ; Other chronic pain G89.29 ; Lumbago with sciatica, unspecified side M54.40 and Primary insomnia F51.01 [place] [address] [address] August, [place] [address] [address] August, COPD (chronic obstructive pulmonary disease) J44.9 ; Insomnia G47.00 ; Depression F32.9 and Constipation due to outlet dysfunction K59.02 [place] [address] [address] August, [place] [address] [address] August, [place] [address] [address] August, Nausea & vomiting R11.2 [place] [address] [address] Jun, [place] [address] [address] Jun, Unspecified abdominal pain R10.9 ; Depression, major, recurrent, moderate 296.32 ; COPD (chronic obstructive pulmonary disease) J44.9 ; Restless legs G25.81 ; Insomnia G47.00 ; Intestinal abscess K63.0 ; HTN (hypertension) I10 and Hypercholesteremia E78.0 [place] [id number] [place] [address] Jun, Intestinal abscess K63.0 [place] [id number] [place] [address] May, [place] [address] [place] [id number] May, [place] [id number] [place] [address] May, Unspecified abdominal pain R10.9 [place] [id number] [place] [address] May, Depression, major, recurrent, moderate 296.32 ; COPD (chronic obstructive pulmonary disease) J44.9 ; Restless legs G25.81 ; Insomnia G47.00 ; Depression F32.9 ; HTN (hypertension) I10 and Hypercholesterolemia E78.0 [place] [id number] [place] [address] Apr, [place] [id number] [place] [address] Mar, Cellulitis L03.90 [place] [address] [address] Feb, Recurrent major depression-severe F33.2 [place] [id number] [place] [address] Feb, Hyperlipemia E78.5 and High blood pressure I10 [place] [id number] [place] [address] Feb, COPD (chronic obstructive pulmonary disease) J44.9 ; Restless legs G25.81 ; Insomnia G47.00 ; Depression F32.9 and HTN (hypertension) I10 [place] [id number] [place] [address] Jan, [place] [address] [address] Jan, Generalized anxiety disorder F41.1 and Recurrent major depression- severe F33.2 [place] [id number] [place] [address] Jan, Bronchitis J40 [place] [address] [place] [address] Jan, Shoulder pain, right M25.511 and Low back pain M54.5 [facility] [id number] [place] [address] Jan, [facility] [id number] [place] [address] Oct, [facility] [id number] [place] [address] Oct, Generalized anxiety disorder 300.02 and Depression, major, severe recurrence 296.33 [facility] [id number] [place] [address] Oct, [facility] [id number] [place] [address] Oct, Depression, major, recurrent, moderate 296.32 [facility] [id number] [place] [address] August, [facility] [id number] [place] [address] Jul, [facility] [id number] [place] [address] Jul, [facility] [address] [address] Jun, [facility] [id number] [place] [address] Jun, [facility] [id number] [place] [address] May, [facility] [id number] [place] [address] May, [facility] [id number] [address] May, [facility] [id number] [place] [address] May, 2014 [facility] [place] [facility] [address] [id number] [place] [address] May, 2014 [facility] [place] [facility] [address] [id number] [place] [address] May, 2014 [facility] [place] [facility] [address] [id number] [place] [address] May, 2014 [facility] [place] [facility] [address] [id number] [place] [address] May, 2014 [facility] [place] [facility] [address] [id number] [place] [address] May, 2014 [facility] [place] [facility] [address] [id number] [place] [address] May, 2014 [facility] [place] [facility] [address] [id number] [place] [address] May, 2014 [facility] [place] [facility] [address] [id number] [place] [address] May, [facility] [place] [facility] [address] [id number] [place] [address] Apr, [facility] [place] [facility] [address] [facility] [id number] [place] [address] Apr, [facility] [place] [facility] [address] [id number] [place] [address] Apr, [facility] [place] [facility] [address] [id number] [place] [address] Apr, [facility] [place] [facility] [address] [id number] [place] [address] Apr, [facility] [place] [facility] [address] [id number] [place] [address] Apr, [facility] [place] [facility] [address] [id number] [address] Apr, [facility] [place] [facility] [address] [id number] [place] [address] Apr, [facility] [place] [facility] [address] [id number] [place] [address] Apr, [facility] [place] [facility] [address] [id number] [place] [address] Apr, [facility] [place] [facility] [address] [id number] [place] [address] Mar, [facility] [place] [facility] [address] [id number] [place] [address] Mar, [facility] [place] [facility] [address] [id number] [place] [address] Mar, [facility] [place] [facility] [address] [id number] [place] [address] Mar, [facility] [place] [facility] [address] [id number] [place] [address] Mar, [facility] [place] [facility] [address] [id number] [place] [address] Feb, [facility] [place] [facility] [address] [id number] [place] [address] Feb, [facility] [place] [facility] [address] [id number] [place] [address] Dec, [facility] [place] [facility] [address] [id number] [place] [address] Dec, [facility] [place] [facility] [address] [id number] [place] [address] Nov, [facility] [place] [facility] [address] [id number] [place] [address] Nov, [facility] [place] [facility] [address] [id number] [place] [address] Nov, [facility] [place] [facility] [address] [id number] [place] [address] Nov, [facility] [place] [facility] [address] [id number] [place] [address] Oct, [facility] [place] [facility] [address] [id number] [place] [address] Oct, [facility] [place] [facility] [address] [id number] [place] [address] Sep, [facility] [place] [facility] [address] [id number] [place] [address] Sep, [facility] [place] [facility] [address] [id number] [place] [address] August, [facility] [place] [facility] [address] [id number] [place] [address] August, [facility] [place] [facility] [address] [id number] [place] [address] August, [facility] [place] [facility] [address] [id number] [place] [address] August, [facility] [place] [facility] [address] [id number] [place] [address] Jul, [facility] [place] [facility] [address] [id number] [place] [address] Jul, [facility] [place] [facility] [address] [id number] [place] [address] Jun, [facility] [place] [facility] [address] [id number] [place] [address] Jun, [facility] [place] [facility] [address] [id number] [place] [address] May, [facility] [place] [facility] [address] [id number] [place] [address] May, [facility] [place] [facility] [address] [id number] [place] [address] May, [facility] [place] [facility] [address] [id number] [place] [address] May, [facility] [place] [facility] [address] [id number] [place] [address] May, [facility] [place] [facility] [address] [id number] [place] [address] May, [facility] [place] [facility] [address] [id number] [place] [address] May, [facility] [place] [facility] [address] [id number] [place] [address] Apr, [facility] [place] [facility] [address] [id number] [place] [address] Apr, [facility] [place] [facility] [address] [id number] [place] [address] Apr, [facility] [place] [facility] [address] [id number] [place] [address] Apr, [facility] [place] [facility] [address] [id number] [place] [address] Apr, [facility] [place] [facility] [address] [id number] [place] [address] Apr, [facility] [place] [facility] [address] [id number] [place] [address] Apr, [facility] [place] [facility] [address] [id number] [place] [address] Apr, [facility] [place] [facility] [address] [id number] [place] [address] Apr, [facility] [place] [facility] [address] [id number] [place] [address] Apr, [facility] [place] [facility] [address] [id number] [place] [address] Mar, [facility] [place] [facility] [address] [id number] [place] [address] Mar, [facility] [place] [facility] [address] [id number] [place] [address] Mar, [facility] [place] [facility] [address] [id number] [place] [address] Mar, [facility] [place] [facility] [address] [id number] [place] [address] Feb, [facility] [place] [facility] [address] [id number] [place] [address] Feb, [facility] [place] [facility] [address] [id number] [place] [address] Feb, [facility] [place] [facility] [address] [id number] [place] [address] Feb, [facility] [place] [facility] [address] [id number] [place] [address] Feb, [facility] [place] [facility] [address] [id number] [place] [address] Feb, [facility] [place] [facility] [address] [id number] [place] [address] Jan, [facility] [place] [facility] [address] [id number] [place] [address] Jan, [facility] [place] [facility] [address] [id number] [place] [address] 05 Dec, 2012 [facility] [place] [facility] [address] [id number] [place] [address] Dec, [facility] [place] [facility] [address] [id number] [place] [address] Nov, [facility] [place] [facility] [address] [id number] [place] [address] Nov, [facility] [place] [facility] [address] [id number] [place] [address] Oct, [facility] [place] [facility] [address] [id number] [place] [address] 07 Sep, 2012 [facility] [address] [id number] [place] [address] August, [facility] [address] [id number] [place] [address] 30 Jul, 2012 [facility] [address] [id number] [place] [address] 14 Jul, 2012 [facility] [address] [id number] [place] [address] 10 Jul, 2012 [facility] [address] [id number] [place] [address] Jul, [facility] [address] [id number] [place] [address] Jul, [facility] [address] [id number] [place] [address] Jun, [facility] [address] [id number] [place] [address] May, [facility] [address] [id number] [place] [address] Apr, [facility] [address] [id number] [place] [address] Mar, [facility] [address] [id number] [place] [address] Mar, [facility] [address] [id number] [place] [address] Mar, [facility] [place] [facility] [address] [id number] [place] [address] Jan, [facility] [address] [id number] [place] [address] Jan, [facility] [address] [id number] [place] [address] Jan, [facility] [place] [facility] [address] [id number] [place] [address] Jan, [facility] [place] [facility] [address] [id number] [place] [address] Dec, [facility] [place] [facility] [address] [id number] [place] [address] Dec, [facility] [place] [facility] [address] [id number] [place] [address] Nov, [facility] [place] [facility] [address] [id number] [place] [address] Nov, [facility] [place] [facility] [address] [id number] [place] [address] Nov, [facility] [place] [facility] [address] [id number] [place] [address] Nov, [facility] [place] [facility] [address] [id number] [place] [address] Nov, [facility] [place] [facility] [address] [id number] [place] [address] Oct, [facility] [place] [facility] [address] [id number] [place] [address] Oct, [facility] [place] [facility] [address] [id number] [place] [address] Oct, [facility] [place] [facility] [address] [id number] [place] [address] Sep, [facility] [place] [facility] [address] [id number] [place] [address] August, [facility] [place] [facility] [address] [id number] [place] [address] Jul, [facility] [place] [facility] [address] [id number] [place] [address] Jul, [facility] [place] [facility] [address] [id number] [place] [address] 09 Jul, 2011 [facility] [place] [facility] [address] [id number] [place] [address] 05 Jul, 2011 [facility] [place] [facility] [address] [id number] [place] [address] 29 Jun, 2011 [facility] [place] [facility] [address] [id number] [place] [address] 28 Jun, 2011 [facility] [place] [facility] [address] [id number] [place] [address] 23 Jun, 2011 [facility] [place] [facility] [address] [id number] [place] [address] 21 Jun, 2011 [facility] [place] [facility] [address] [id number] [place] [address] 15 Jun, 2011 [facility] [place] [facility] [address] [id number] [place] [address] 28 May, 2011 [facility] [place] [facility] [address] [id number] [place] [address] 28 May, 2011 [facility] [place] [facility] [address] [id number] [place] [address] 27 May, 2011 [facility] [place] [facility] [address] [id number] [place] [address] 24 May, 2011 [facility] [place] [facility] [address] [id number] [place] [address] Apr, [facility] [place] [facility] [address] [id number] [place] [address] Mar, [facility] [place] [facility] [address] [id number] [place] [address] Mar, [facility] [place] [facility] [address] [id number] [place] [address] 17 Jun, 2010 [facility] [place] [facility] [address] [id number] [place] [address] Feb, [facility] [address] [id number] [address] Jan, [facility] [id number] [address] Jan, [facility] [id number] [address] Jan, [facility] [id number] [place] [address] Dec, [facility] [id number] [address] May, [facility] [id number] [address] Feb, [facility] [id number] [address] Feb, [facility] [id number] [address] Feb, IMMUNIZATIONS No Known Immunizations SOCIAL HISTORY Never Assessed [place] VITAL SIGNS MEDICATIONS Unknown [...]
--- OUTSIDE RECORDS SUMMARY | 2018-11-21 21:52 | XMS REPORT ---
Author Author Migration, Doctor Organization [facility] Address Unknown Phone Unavailable Care Team Providers Care Loading Inspector Name Role Phone Migration, Doctor Unavailable Unavailable PROBLEMS Type Condition ICD9-CM Code IPU14-DD Code Onset Dates Condition Status SNOMED Code Problem Lumbar spondylosis M47.816 Active 190665398 Problem Insomnia G47.00 Active 319161856 Problem Facet arthropathy, lumbar M46.96 Active 055372993 Problem Depression F32.9 Active 80028690 Problem COPD (chronic obstructive pulmonary disease) J44.9 Active 38708865 Problem Constipation due to outlet dysfunction K59.02 Active 04797445 Problem Restless legs G25.81 Active 88750014 Problem Anxiety F41.9 Active 48721904 Problem Generalized anxiety disorder F41.1 Active 86349311 Problem Psychophysiological insomnia F51.04 Active 339522181 Problem Chronic obstructive pulmonary disease, unspecified COPD type J44.9 Active 82297781 Problem Major depressive disorder, recurrent episode, moderate with anxious distress F33.1 Active 347798211 Problem Gastroesophageal reflux disease, esophagitis presence not specified K21.9 Active 482186533 Problem Essential hypertension I10 Active 44432149 Problem Hypercholesterolemia E78.00 Active 26857991 Problem Other obesity due to excess calories E66.09 Active 450002202 Problem Other chronic pain G89.29 Active 23573521 Problem COPD exacerbation J44.1 Active 762012928 ALLERGIES No Information ENCOUNTERS Encounter Location Date Diagnosis [facility] [id number] [address] Jul, [facility] [id number] [place] [address] Jun, Severe episode of recurrent major depressive disorder, without psychotic features F33.2 [facility] [id number] [address] Jun, Severe episode of recurrent major depressive disorder, without psychotic features F33.2 [facility] [id number] [place] [address] Jun, Severe episode of recurrent major depressive disorder, without psychotic features F33.2 ; Generalized anxiety disorder F41.1 and Psychophysiological insomnia F51.04 [id number] [place] [address] May, COPD (chronic obstructive pulmonary disease) J44.[address] [address] May, COPD (chronic obstructive pulmonary disease) J44.9 ; Essential hypertension I10 ; Gastroesophageal reflux disease, esophagitis presence not specified K21.9 ; Viral illness B34.9 and Tongue lesion K14.8 [id number] [place] [address] Apr, Severe episode of recurrent major depressive disorder, without psychotic features F33.[address] [address] 10 Mar, 2018 COPD exacerbation J44.[address] [address] 05 Mar, 2018 COPD (chronic obstructive pulmonary disease) J44.9 [id number] [place] [address] 12 Feb, 2018 Severe episode of recurrent major depressive disorder, without psychotic features F33.2 ; Generalized anxiety disorder F41.1 and Psychophysiological insomnia F51.04 [id number] [place] [address] 13 Dec, 2017 Fever, unspecified fever cause R50.9 ; Nausea and vomiting, intractability of vomiting not specified, unspecified vomiting type R11.2 ; Wheezing on auscultation R06.2 ; COPD (chronic obstructive pulmonary disease) J44.9 and Acute maxillary sinusitis, recurrence not specified J01.[address] [address] Dec, Edema of lower extremity R60.0 [id number] [place] [address] Dec, [facility] [id number] [place] [address] Nov, Essential hypertension I10 [address] [facility] [id number] [place] [address] Nov, [address] [id number] [place] [address] Nov, Severe episode of recurrent major depressive disorder, without psychotic features F33.2 ; Generalized anxiety disorder F41.1 and Psychophysiological insomnia F51.04 [address] [id number] [place] [address] Nov, COPD (chronic obstructive pulmonary disease) J44.9 ; Essential hypertension I10 ; Lumbar spondylosis M47.816 ; Generalized anxiety disorder F41.1 ; Rash and nonspecific skin eruption R21 ; Pain in joints of right hand M25.541 ; Pain in joints of left hand M25.542 and Hypercholesterolemia E78.00 [place] [id number] [place] [address] Nov, Rash and nonspecific skin eruption R21 and Non-intractable vomiting with nausea, unspecified vomiting type R11.2 [place] [id number] [place] [address] Oct, [address] [id number] [place] [address] Sep, Pain aggravated by standing R52 [address] [id number] [place] [address] Sep, Other depression F32.89 [address] [id number] [place] [address] Sep, Chronic obstructive pulmonary disease, unspecified COPD type J44.9 ; Pain aggravated by standing R52 ; Other depression F32.89 ; Major depressive disorder, recurrent episode, moderate with anxious distress F33.1 ; Restless legs G25.81 ; Insomnia G47.00 ; Gastroesophageal reflux disease with esophagitis K21.0 ; Essential hypertension I10 ; Generalized anxiety disorder F41.1 and Hypercholesterolemia E78.00 [address] [place] [id number] [place] [address] Jul, Fever, unspecified fever cause R50.9 and Cough R05 [address] [address] Jul, [address] [address] [address] Jul, Gastroesophageal reflux disease with esophagitis K21.0 [address] [address] Jul, [address] [address] Jun, COPD (chronic obstructive pulmonary disease) J44.9 ; Restless legs G25.81 ; Insomnia G47.00 ; Essential hypertension I10 ; Major depressive disorder, recurrent episode, moderate with anxious distress F33.1 ; Gastroesophageal reflux disease with esophagitis K21.0 ; Constipation due to outlet dysfunction K59.02 ; Hypercholesterolemia E78.00 ; Other chronic pain G89.29 and Generalized abdominal pain R10.84 [address] [id number] [place] [address] Jun, [address] [address] Jun, Acute recurrent sinusitis, unspecified location J01.91 and COPD exacerbation J44.[address] [address] Jun, Lumbago with sciatica, unspecified side M54.40 [address] [address] May, [address] [id number] [place] [address] May, Severe episode of recurrent major depressive disorder, without psychotic features F33.2 [place] [id number] [place] [address] Apr, COPD (chronic obstructive pulmonary disease) J44.9 [...] index (BMI) of 32.0-32.9 in adult Z68.32 [id number] [place] [address] Apr, Severe episode of recurrent major depressive disorder, without psychotic features F33.2 [id number] [place] [address] Feb, Severe episode of recurrent major depressive disorder, without psychotic features F33.2 and Restless legs G25.81 [id number] [place] [address] Feb, Severe episode of recurrent major depressive disorder, without psychotic features F33.2 ; Generalized anxiety disorder F41.1 and Psychophysiological insomnia F51.04 [id number] [place] [address] Dec, Severe episode of recurrent major depressive disorder, without psychotic features F33.2 ; Generalized anxiety disorder F41.1 and Psychophysiological insomnia F51.04 [id number] [place] [address] Nov, Severe episode of recurrent major depressive disorder, without psychotic features F33.2 ; Generalized anxiety disorder F41.1 and Psychophysiological insomnia F51.04 [id number] [place] [address] Nov, [address] [id number] [place] [address] Nov, Depression F32.9 [place] [id number] [place] [address] Nov, Depression F32.9 ; Insomnia G47.00 and Anxiety F41.9 [place] [address] [address] August, COPD (chronic obstructive pulmonary disease) J44.9 ; Depression F32.9 ; Anxiety F41.9 ; Major depressive disorder, recurrent episode, moderate with anxious distress F33.1 ; Insomnia G47.00 ; Restless legs G25.81 ; Essential hypertension I10 and Pure hypercholesterolemia E78.00 [place] [id number] [place] [address] August, Acute intractable tension-type headache G44.201 [facility] [id number] [place] [address] Jul, Left wrist pain M25.532 and Strain of left wrist, initial encounter S66.912A [id number] [place] [address] 14 May, 2016 Gastroesophageal reflux disease with esophagitis K21.0 and Anxiety F41.9 [id number] [place] [address] 13 May, 2016 Major depressive disorder, recurrent episode, moderate with anxious distress F33.1 ; COPD (chronic obstructive pulmonary disease) J44.9 ; Restless legs G25.81 ; Insomnia G47.00 ; Essential hypertension I10 ; Anxiety F41.9 ; Constipation due to outlet dysfunction K59.02 ; Torsion of intestine, bowel or colon K56.2 ; Hypercholesterolemia E78.00 and Gastroesophageal reflux disease with esophagitis K21.0 [facility] [id number] [place] [address] Feb, [id number] [place] [address] 20 Dec, 2015 Essential hypertension I10 ; Depression F32.9 ; Anxiety F41.9 ; Constipation due to outlet dysfunction K59.02 ; Torsion of intestine, bowel or colon K56.2 ; COPD (chronic obstructive pulmonary disease) J44.9 ; Insomnia G47.00 ; Restless legs G25.81 and Gastroesophageal reflux disease with esophagitis K21.0 [address] [address] 08 Dec, 2015 Essential hypertension I10 ; Major depressive disorder, recurrent episode, moderate with anxious distress F33.1 ; COPD (chronic obstructive pulmonary disease) J44.9 ; Restless legs G25.81 ; Insomnia G47.00 ; Constipation due to outlet dysfunction K59.02 and Gastroesophageal reflux disease without esophagitis K21.9 [address] [address] 07 Dec, 2015 Major depressive disorder, recurrent episode, moderate with anxious distress F33.1 [address] [id number] [place] [address] Sep, [address] [address] 23 Sep, 2015 Nausea R11.0 [address] [address] 15 Sep, 2015 Lower abdominal pain R10.30 ; COPD (chronic obstructive pulmonary disease) J44.9 ; Restless legs G25.81 ; Essential hypertension I10 ; Depression F32.9 ; Other chronic pain G89.29 ; Lumbago with sciatica, unspecified side M54.40 and Primary insomnia F51.01 [address] [address] August, [address] [id number] [place] [address] August, COPD (chronic obstructive pulmonary disease) J44.9 ; Insomnia G47.00 ; Depression F32.9 and Constipation due to outlet dysfunction K59.02 [address] [place] [id number] [place] [address] August, [address] [address] August, [address] [address] August, Nausea & vomiting R11.2 [address] [address] Jun, [address] [address] Jun, Unspecified abdominal pain R10.9 ; Depression, major, recurrent, moderate 296.32 ; COPD (chronic obstructive pulmonary disease) J44.9 ; Restless legs G25.81 ; Insomnia G47.00 ; Intestinal abscess K63.0 ; HTN (hypertension) I10 and Hypercholesteremia E78.0 [address] [id number] [place] [address] Jun, Intestinal abscess K63.0 [address] [id number] [place] [address] May, [address] [id number] [place] [address] May, [id number] [place] [address] May, Unspecified abdominal pain R10.9 [address] [id number] [place] [address] May, Depression, major, recurrent, moderate 296.32 ; COPD (chronic obstructive pulmonary disease) J44.9 ; Restless legs G25.81 ; Insomnia G47.00 ; Depression F32.9 ; HTN (hypertension) I10 and Hypercholesterolemia E78.0 [address] [id number] [place] [address] Apr, [facility] [id number] [place] [address] Mar, Cellulitis L03.90 [address] [place] [address] Feb, Recurrent major depression-severe F33.2 [address] [place] [address] Feb, Hyperlipemia E78.5 and High blood pressure I10 [address] [place] [address] Feb, COPD (chronic obstructive pulmonary disease) J44.9 ; Restless legs G25.81 ; Insomnia G47.00 ; Depression F32.9 and HTN (hypertension) I10 [address] [place] [address] Jan, [address] [place] [address] Jan, Generalized anxiety disorder F41.1 and Recurrent major depression- severe F33.2 [address] [address] Jan, Bronchitis J40 [address] [place] [address] Jan, Shoulder pain, right M25.511 and Low back pain M54.5 [address] [id number] [place] [address] Jan, [address] [address] Oct, [address] [address] Oct, Generalized anxiety disorder 300.02 and Depression, major, severe recurrence 296.33 [address] [address] [address] Oct, [facility] [address], [place] [address] Oct, Depression, major, recurrent, moderate 296.32 [facility] [address] [facility] [id number] [place] [address] August, [facility] [id number] [place] [address] Jul, [facility] [id number] [place] [address] Jul, [facility] [id number] [place] [address] Jun, [facility] [id number] [place] [address] Jun, [facility] [id number] [place] [address] May, [facility] [id number] [place] [address] May, [facility] [id number] [place] [address] May, [facility] [address], [place] [address] May, [facility] [address], [place] [address] May, [facility] [id number], [place] [address] May, [facility] [id number] [place] [address] May, [facility] [address], [place] [address] 17 May, 2014 [facility] [id number] [place] [address] May, [facility] [place] [facility] [address] [id number] [place] [address] May, [facility] [place] [facility] [address] [id number] [place] [address] May, [facility] [place] [facility] [address] [id number] [place] [address] May, [facility] [place] [facility] [address] [id number] [place] [address] Apr, [facility] [place] [facility] [address] [id number] [place] [address] Apr, [facility] [place] [facility] [address] [id number] [place] [address] Apr, [facility] [place] [facility] [address] [id number] [place] [address] Apr, [facility] [place] [facility] [address] [id number], [place] [address] Apr, [facility] [place] [facility] [address] [id number], [place] [address] Apr, [facility] [place] [facility] [address] [id number], [place] [address] Apr, [facility] [place] [facility] [address] [id number], [place] [address] Apr, [facility] [place] [facility] [address] [id number], [place] [address] Apr, [facility] [place] [facility] [address] [id number], [place] [address] Apr, [facility] [place] [facility] [address] [id number], [place] [address] Mar, [facility] [place] [facility] [address] [id number] [place] [address] Mar, [facility] [place] [facility] [address] [id number] [place] [address] 16 Mar, 2014 [facility] [place] [facility] [address] [id number] [place] [address] Mar, [facility] [place] [facility] [address] [id number] [place] [address] Mar, [facility] [place] [facility] [address] [id number] [place] [address] Feb, [facility] [place] [facility] [address] [id number] [place] [address] Feb, [facility] [place] [facility] [address] [id number] [place] [address] Dec, [facility] [place] [facility] [address] [id number] [place] [address] Dec, [facility] [place] [facility] [address] [id number] [place] [address] Nov, [facility] [place] [facility] [address] [id number] [place] [address] Nov, [facility] [place] [facility] [address] [id number] [place] [address] Nov, [facility] [place] [facility] [address] [id number] [place] [address] Nov, [facility] [place] [facility] [address] [id number] [place] [address] Oct, [facility] [place] [facility] [address] [id number] [place] [address] Oct, [facility] [place] [facility] [address] [id number] [place] [address] Sep, [facility] [place] [facility] [address] [id number] [place] [address] Sep, [facility] [place] [facility] [address] [id number] [place] [address] August, [facility] [place] [facility] [address] [id number] [place] [address] August, [facility] [place] [facility] [address] [id number] [place] [address] August, [facility] [place] [facility] [address] [id number] [place] [address] August, [facility] [place] [facility] [address] [id number] [place] [address] Jul, [facility] [place] [facility] [address] [id number] [place] [address] Jul, [facility] [place] [facility] [address] [id number] [place] [address] Jun, [facility] [place] [facility] [address] [id number] [place] [address] Jun, [facility] [place] [facility] [address] [id number] [place] [address] May, [facility] [place] [facility] [address] [id number] [place] [address] May, [facility] [place] [facility] [address] [id number] [place] [address] May, [facility] [place] [facility] [address] [id number] [place] [address] May, [facility] [place] [facility] [address] [id number] [place] [address] May, [facility] [place] [facility] [address] [id number] [place] [address] May, [facility] [place] [facility] [address] [id number] [place] [address] May, [facility] [place] [facility] [address] [id number] [place] [address] Apr, [facility] [place] [facility] [address] [id number] [place] [address] Apr, [facility] [address] [id number] [place] [address] Apr, [facility] [address] [id number] [place] [address] Apr, [facility] [address] [id number] [place] [address] Apr, [facility] [address] [id number] [place] [address] Apr, [facility] [address] [id number] [place] [address] Apr, [facility] [address] [id number] [place] [address] Apr, [facility] [address] [id number] [place] [address] Apr, [facility] [address] [id number] [place] [address] Apr, [facility] [address] [id number] [place] [address] Mar, [facility] [address] [id number] [place] [address] Mar, [facility] [address] [id number] [place] [address] Mar, [facility] [address] [id number] [place] [address] Mar, [facility] [place] [facility] [address] [id number] [place] [address] Feb, [facility] [place] [facility] [address] [id number] [place] [address] Feb, [facility] [address] [id number] [place] [address] Feb, [facility] [place] [facility] [address] [id number] [place] [address] Feb, [facility] [place] [facility] [address] [id number] [place] [address] Feb, [facility] [place] [facility] [address] [id number] [place] [address] Feb, [facility] [place] [facility] [address] [id number] [place] [address] Jan, [facility] [place] [facility] [address] [id number] [place] [address] Jan, [facility] [place] [facility] [address] [id number] [place] [address] 05 Dec, 2012 [facility] [place] [facility] [address] [id number] [place] [address] Dec, [facility] [place] [facility] [address] [id number], [place] [address] Nov, [facility] [place] [facility] [address] [id number] [place] [address] Nov, [facility] [place] [facility] [address] [id number], [place] [address] Oct, [facility] [place] [facility] [address] [id number], [place] [address] Sep, [facility] [place] [facility] [address] [id number], [place] [address] August, [facility] [place] [facility] [address] [id number] [place] [address] 30 Jul, 2012 [facility] [place] [facility] [address] [id number], [place] [address] 14 Jul, 2012 [facility] [place] [facility] [address] [id number], [place] [address] Jul, [facility] [place] [facility] [address] [id number], [place] [address] Jul, [facility] [address] [id number] [place] [address] Jul, [facility] [place] [facility] [address] [id number] [place] [address] Jun, [facility] [place] [facility] [address] [facility] [id number] [place] [address] May, [facility] [place] [facility] [address] [id number] [place] [address] Apr, [facility] [address] [id number] [place] [address], [place] [address] Mar, [facility] [place] [facility] [address] [id number] [place] [address] Mar, [facility] [address] [id number] [place] [address] Mar, [facility] [place] [facility] [address] [id number] [place] [address] Jan, [facility] [place] [facility] [address] [id number] [place] [address] Jan, [facility] [place] [facility] [address] [id number] [place] [address] Jan, [facility] [place] [facility] [address] [facility] [id number] [place] [address] Jan, [facility] [place] [facility] [address] [id number], [place] [address] Dec, [facility] [place] [facility] [address] [id number] [place] [address] Dec, [facility] [place] [facility] [address] [facility] [id number] [place] [address] Nov, [facility] [place] [facility] [address] [facility] [id number] [place] [address] Nov, [facility] [place] [facility] [address] [id number] [place] [address] Nov, [facility] [place] [facility] [address] [id number] [place] [address] Nov, [facility] [place] [facility] [address] [id number] [place] [address] Nov, [facility] [place] [facility] [address] [id number] [place] [address] Oct, [facility] [place] [facility] [address] [id number] [place] [address] Oct, [facility] [place] [facility] [address] [id number] [place] [address] Oct, [facility] [place] [facility] [address] [id number] [place] [address] Sep, [facility] [place] [facility] [address] [id number] [place] [address] August, [facility] [place] [facility] [address] [id number] [place] [address] Jul, [facility] [place] [facility] [address] [id number] [place] [address] Jul, [facility] [place] [facility] [address] [id number] [place] [address] Jul, [facility] [place] [facility] [address] [id number] [place] [address] Jul, [facility] [place] [facility] [address] [id number] [place] [address] Jun, [facility] [place] [facility] [address] [id number] [place] [address] Jun, [facility] [place] [facility] [address] [id number] [place] [address] Jun, [facility] [place] [facility] [address] [id number] [place] [address] Jun, [facility] [place] [facility] [address] [id number] [place] [address] Jun, [facility] [place] [facility] [address] [id number] [place] [address] May, [facility] [place] [facility] [address] [id number] [place] [address] May, [facility] [place] [facility] [address] [id number] [place] [address] May, [facility] [place] [facility] [address] [id number] [place] [address] May, [facility] [place] [facility] [address] [id number] [place] [address] Apr, [facility] [place] [facility] [address] [facility] [id number] [place] [address] Mar, [facility] [place] [facility] [address] [id number] [place] [address] Mar, [facility] [place] [facility] [address] [id number] [place] [address] Jun, [facility] [place] [facility] [address] [facility] [id number] [place] [address] Feb, [facility] [place] [facility] [address] [id number], [place] [address] Jan, [facility] [place] [facility] [address] [id number] [place] [address] Jan, [facility] [place] [facility] [address] [id number] [place] [address] Jan, [facility] [place] [facility] [address] [facility] [id number] [place] [address] Dec, [facility] [place] [facility] [address] [facility] [id number] [place] [address] May, [facility] [place] [facility] [address] [facility] [id number] [place] [address] Feb, [facility] [address] [facility] [id number], [place] [address] Feb, [facility] [address] [facility] [id number] [place] [address] Feb, IMMUNIZATIONS No Known Immunizations SOCIAL HISTORY Never Assessed REASON FOR VISIT [facility] [place] PLAN OF CARE VITAL SIGNS MEDICATIONS Medication Instructions Dosage Frequency Start Date End Date Duration Status Latuda 20 mg 2 tablet 1 time per day for 7 days w/at least 350 calories May, Active MethylPREDNISolone 4 mg by Oral route every day for 6 days as directed per dose pack Apr, Active PredniSONE 20 mg 2 tablet by Oral route 1 time per day for 5 day(s) May, Active Cymbalta 30 mg 1 capsule by Oral route 1 time per day Mar, Active Albuterol Sulfate 2.5 mg /3 mL (0.083 %) 1 Each by Inhalation route every 4 hours for cough and wheeze PRN for wheezing or cough; Jun, Active Dulera 100-5 mcg/actuation 2 puffs by Inhalation route 2 times per day Jul, Active Viibryd 10 mg 1 Tablet by Oral route 1 time per day for 14 days 20 mg X 7 days, then 10 mg X 6 days, then D/C Viibryd Feb, Active Bactrim DS 800-160 mg 1 tablet by Oral route 2 times per day for 10 day(s) May, Active Latuda 40 mg 1 tablet by Oral route 1 time per day w/at least 350 calories May, Active Doxycycline Hyclate 100 mg 1 tablet by Oral route 2 times per day for 10 days May, Active Xanax 1 mg 1 tablet by Oral route 2 times per day Mar, Active Cipro 500 mg 1 tablet by Oral route every 12 hours for 10 day(s) Apr, Active ProAir HFA 90 mcg/actuation inhale 2 puffs by Inhalation route every 4 hours as needed PRN shortness of breath/cough Apr, Active RESULTS No Results PROCEDURES No Known [...] resection 06/2015 Surgical History Hernia Surgery 01/2017 Hospitalization History pneumonia Hospitalization History Surgery(s) Hospitalization History Holder Unit s/p overdose 11/14/16
--- OUTSIDE RECORDS SUMMARY | 2018-11-21 21:52 | XMS REPORT ---
Author Author Migration, Doctor Organization [facility] Address Unknown Phone Unavailable Care Team Providers Care Celluloid Trimmer Name Role Phone Migration, Doctor Unavailable Unavailable PROBLEMS Type Condition ICD9-CM Code [id number] Code Onset Dates Condition Status SNOMED Code Problem Lumbar spondylosis M47.816 Active 819870730 Problem Insomnia G47.00 Active 647485863 Problem Facet arthropathy, lumbar M46.96 Active 867157699 Problem Depression F32.9 Active 17060822 Problem COPD (chronic obstructive pulmonary disease) J44.9 Active 50083164 Problem Constipation due to outlet dysfunction K59.02 Active 87432304 Problem Restless legs G25.81 Active 93388312 Problem Anxiety F41.9 Active 29278452 Problem Generalized anxiety disorder F41.1 Active 75176738 Problem Psychophysiological insomnia F51.04 Active 557382041 Problem Chronic obstructive pulmonary disease, unspecified COPD type J44.9 Active 17077445 Problem Major depressive disorder, recurrent episode, moderate with anxious distress F33.1 Active 302744101 Problem Gastroesophageal reflux disease, esophagitis presence not specified K21.9 Active 755429494 Problem Essential hypertension I10 Active 63937616 Problem Hypercholesterolemia E78.00 Active 32581516 Problem Other obesity due to excess calories E66.09 Active 259942768 Problem Other chronic pain G89.29 Active 14371994 Problem COPD exacerbation J44.1 Active 185724788 ALLERGIES No Information ENCOUNTERS Encounter Location Date Diagnosis [facility] [address] [address] August, [facility] [id number] [place] [address] Jul, Thrush B37.0 and Hypercholesterolemia E78.00 [facility] [address] [address] Jul, Severe episode of recurrent major depressive disorder, without psychotic features F33.2 [facility] [id number] [place] [address] Jul, Severe episode of recurrent major depressive disorder, without psychotic features F33.2 ; Generalized anxiety disorder F41.1 ; Psychophysiological insomnia F51.04 and Other detention (current) drug therapy Z79.899 [place] [address] [address] Jun, Severe episode of recurrent major depressive disorder, without psychotic features F33.2 [place] [facility] [address] [address] Jun, Severe episode of recurrent major depressive disorder, without psychotic features F33.[address] [address] Jun, Severe episode of recurrent major depressive disorder, without psychotic features F33.2 ; Generalized anxiety disorder F41.1 and Psychophysiological insomnia F51.[address] [address] May, COPD (chronic obstructive pulmonary disease) J44.[address] [address] May, COPD (chronic obstructive pulmonary disease) J44.9 ; Essential hypertension I10 ; Gastroesophageal reflux disease, esophagitis presence not specified K21.9 ; Viral illness B34.9 and Tongue lesion K14.8 [place] [id number] [place] [address] Apr, Severe episode of recurrent major depressive disorder, without psychotic features F33.2 [facility] [id number] [place] [address] Mar, COPD exacerbation J44.[address] [address] 05 Mar, 2018 COPD (chronic obstructive pulmonary disease) J44.9 [place] [address] [address] Feb, Severe episode of recurrent major depressive disorder, without psychotic features F33.2 ; Generalized anxiety disorder F41.1 and Psychophysiological insomnia F51.04 [place] [address] [address] Dec, Fever, unspecified fever cause R50.9 ; Nausea and vomiting, intractability of vomiting not specified, unspecified vomiting type R11.2 ; Wheezing on auscultation R06.2 ; COPD (chronic obstructive pulmonary disease) J44.9 and Acute maxillary sinusitis, recurrence not specified J01.00 [place] [address] [address] Dec, Edema of lower extremity R60.0 [facility] [address] [address] Dec, [facility] [address] [address] Nov, Essential hypertension I10 [facility] [address] [address] Nov, [facility] [address] [address] Nov, Severe episode of recurrent major depressive disorder, without psychotic features F33.2 ; Generalized anxiety disorder F41.1 and Psychophysiological insomnia F51.04 [facility] [address] [address] Nov, COPD (chronic obstructive pulmonary disease) J44.9 ; Essential hypertension I10 ; Lumbar spondylosis M47.816 ; Generalized anxiety disorder F41.1 ; Rash and nonspecific skin eruption R21 ; Pain in joints of right hand M25.541 ; Pain in joints of left hand M25.542 and Hypercholesterolemia E78.00 [facility] [id number] [place] [address] Nov, Rash and nonspecific skin eruption R21 and Non-intractable vomiting with nausea, unspecified vomiting type R11.2 [facility] [id number] [place] [address] Oct, [facility] [address] [place] [id number] Sep, Pain aggravated by standing R52 [place] [address] [address] Sep, Other depression F32.89 [place] [address] [address] Sep, Chronic obstructive pulmonary disease, unspecified COPD type J44.9 ; Pain aggravated by standing R52 ; Other depression F32.89 ; Major depressive disorder, recurrent episode, moderate with anxious distress F33.1 ; Restless legs G25.81 ; Insomnia G47.00 ; Gastroesophageal reflux disease with esophagitis K21.0 ; Essential hypertension I10 ; Generalized anxiety disorder F41.1 and Hypercholesterolemia E78.00 [place] [address] [address] Jul, Fever, unspecified fever cause R50.9 and Cough R05 [place] [facility] [address] [address] Jul, [place] [facility] [address] [address] Jul, Gastroesophageal reflux disease with esophagitis K21.0 [facility] [id number] [place] [address] Jul, [place] [facility] [address] [address] Jun, COPD (chronic obstructive pulmonary disease) J44.9 ; Restless legs G25.81 ; Insomnia G47.00 ; Essential hypertension I10 ; Major depressive disorder, recurrent episode, moderate with anxious distress F33.1 ; Gastroesophageal reflux disease with esophagitis K21.0 ; Constipation due to outlet dysfunction K59.02 ; Hypercholesterolemia E78.00 ; Other chronic pain G89.29 and Generalized abdominal pain R10.84 [place] [address] [address] Jun, [facility] [id number] [place] [address] Jun, Acute recurrent sinusitis, unspecified location J01.91 and COPD exacerbation J44.1 [facility] [id number] [place] [address] Jun, Lumbago with sciatica, unspecified side M54.40 [facility] [id number] [place] [address] May, [facility] [id number] [place] [address] May, Severe episode of recurrent major depressive disorder, without psychotic features F33.2 [place] [id number] [place] [address] Apr, COPD (chronic obstructive pulmonary disease) J44.9 [...] index (BMI) of 32.0-32.9 in adult Z68.32 [facility] [address] [place] [address] Apr, Severe episode of recurrent major depressive disorder, without psychotic features F33.2 [facility] [id number] [place] [address] Feb, Severe episode of recurrent major depressive disorder, without psychotic features F33.2 and Restless legs G25.81 [facility] [address] [place] [address] Feb, Severe episode of recurrent major depressive disorder, without psychotic features F33.2 ; Generalized anxiety disorder F41.1 and Psychophysiological insomnia F51.04 [facility] [id number] [place] [address] Dec, Severe episode of recurrent major depressive disorder, without psychotic features F33.2 ; Generalized anxiety disorder F41.1 and Psychophysiological insomnia F51.04 [place] [address] [address] Nov, Severe episode of recurrent major depressive disorder, without psychotic features F33.2 ; Generalized anxiety disorder F41.1 and Psychophysiological insomnia F51.04 [place] [address] [address] Nov, [place] [address] [address] Nov, Depression F32.9 [place] [address] [address] Nov, Depression F32.9 ; Insomnia G47.00 and Anxiety F41.9 [place] [address] [address] August, COPD (chronic obstructive pulmonary disease) J44.9 ; Depression F32.9 ; Anxiety F41.9 ; Major depressive disorder, recurrent episode, moderate with anxious distress F33.1 ; Insomnia G47.00 ; Restless legs G25.81 ; Essential hypertension I10 and Pure hypercholesterolemia E78.00 [facility] [id number] [place] [address] August, Acute intractable tension-type headache G44.201 [facility] [address] [address] Jul, Left wrist pain M25.532 and Strain of left wrist, initial encounter S66.912A [place] [facility] [address] [address] May, Gastroesophageal reflux disease with esophagitis K21.0 and Anxiety F41.9 [place] [id number] [place] [address] 13 May, 2016 Major depressive disorder, recurrent episode, moderate with anxious distress F33.1 ; COPD (chronic obstructive pulmonary disease) J44.9 ; Restless legs G25.81 ; Insomnia G47.00 ; Essential hypertension I10 ; Anxiety F41.9 ; Constipation due to outlet dysfunction K59.02 ; Torsion of intestine, bowel or colon K56.2 ; Hypercholesterolemia E78.00 and Gastroesophageal reflux disease with esophagitis K21.0 [facility] [id number] [place] [address] 07 Feb, 2016 [place] [facility] [address] [address] 20 Dec, 2015 Essential hypertension I10 ; Depression F32.9 ; Anxiety F41.9 ; Constipation due to outlet dysfunction K59.02 ; Torsion of intestine, bowel or colon K56.2 ; COPD (chronic obstructive pulmonary disease) J44.9 ; Insomnia G47.00 ; Restless legs G25.81 and Gastroesophageal reflux disease with esophagitis K21.0 [facility] [id number] [place] [address] 08 Dec, 2015 Essential hypertension I10 ; Major depressive disorder, recurrent episode, moderate with anxious distress F33.1 ; COPD (chronic obstructive pulmonary disease) J44.9 ; Restless legs G25.81 ; Insomnia G47.00 ; Constipation due to outlet dysfunction K59.02 and Gastroesophageal reflux disease without esophagitis K21.9 [facility] [id number] [place] [address] 07 Dec, 2015 Major depressive disorder, recurrent episode, moderate with anxious distress F33.1 [facility] [id number] [place] [address] Sep, [facility] [id number] [place] [address] Sep, Nausea R11.0 [place] [address] [address] Sep, Lower abdominal pain R10.30 ; COPD (chronic obstructive pulmonary disease) J44.9 ; Restless legs G25.81 ; Essential hypertension I10 ; Depression F32.9 ; Other chronic pain G89.29 ; Lumbago with sciatica, unspecified side M54.40 and Primary insomnia F51.01 [place] [address] [address] August, [place] [address] [address] August, COPD (chronic obstructive pulmonary disease) J44.9 ; Insomnia G47.00 ; Depression F32.9 and Constipation due to outlet dysfunction K59.02 [place] [address] [address] August, [place] [address] [address] August, [place] [address] [address] August, Nausea & vomiting R11.2 [place] [facility] [address] [address] Jun, [place] [address] [address] Jun, Unspecified abdominal pain R10.9 ; Depression, major, recurrent, moderate 296.32 ; COPD (chronic obstructive pulmonary disease) J44.9 ; Restless legs G25.81 ; Insomnia G47.00 ; Intestinal abscess K63.0 ; HTN (hypertension) I10 and Hypercholesteremia E78.0 [facility] [id number] [place] [address] Jun, Intestinal abscess K63.0 [facility] [id number] [place] [address] May, [place] [address] [place] [id number] May, [facility] [id number] [place] [address] May, Unspecified abdominal pain R10.9 [facility] [id number] [place] [address] May, Depression, major, recurrent, moderate 296.32 ; COPD (chronic obstructive pulmonary disease) J44.9 ; Restless legs G25.81 ; Insomnia G47.00 ; Depression F32.9 ; HTN (hypertension) I10 and Hypercholesterolemia E78.0 [facility] [id number] [place] [address] Apr, [facility] [id number] [place] [address] Mar, Cellulitis L03.90 [place] [address] [address] Feb, Recurrent major depression-severe F33.2 [facility] [id number] [place] [address] Feb, Hyperlipemia E78.5 and High blood pressure I10 [facility] [id number] [place] [address] Feb, COPD (chronic obstructive pulmonary disease) J44.9 ; Restless legs G25.81 ; Insomnia G47.00 ; Depression F32.9 and HTN (hypertension) I10 [place] [id number] [place] [address] Jan, [place] [address] [address] Jan, Generalized anxiety disorder F41.1 and Recurrent major depression- severe F33.2 [place] [id number] [place] [address] Jan, Bronchitis J40 [place] [address] [place] [address] Jan, Shoulder pain, right M25.511 and Low back pain M54.5 [facility] [id number] [place] [address] Jan, [facility] [id number] [place] [address] Oct, [facility] [id number] [place] [address] Oct, Generalized anxiety disorder 300.02 and Depression, major, severe recurrence 296.33 [facility] [id number] [place] [address] Oct, [facility] [id number] [place] [address] Oct, Depression, major, recurrent, moderate 296.32 [facility] [id number] [place] [address] August, [facility] [id number] [place] [address] Jul, [facility] [id number] [place] [address] Jul, [facility] [address] [address] Jun, [facility] [id number] [place] [address] Jun, [facility] [id number] [place] [address] May, [facility] [id number] [place] [address] May, [facility] [id number] [address] May, [facility] [id number] [place] [address] May, 2014 [facility] [place] [facility] [address] [id number] [place] [address] May, 2014 [facility] [place] [facility] [address] [id number] [place] [address] May, 2014 [facility] [place] [facility] [address] [id number] [place] [address] May, 2014 [facility] [place] [facility] [address] [id number] [place] [address] May, 2014 [facility] [place] [facility] [address] [id number] [place] [address] May, 2014 [facility] [place] [facility] [address] [id number] [place] [address] May, 2014 [facility] [place] [facility] [address] [id number] [place] [address] May, 2014 [facility] [place] [facility] [address] [id number] [place] [address] May, [facility] [place] [facility] [address] [id number] [place] [address] Apr, [facility] [place] [facility] [address] [facility] [id number] [place] [address] Apr, [facility] [place] [facility] [address] [id number] [place] [address] Apr, [facility] [place] [facility] [address] [id number] [place] [address] Apr, [facility] [place] [facility] [address] [id number] [place] [address] Apr, [facility] [place] [facility] [address] [id number] [place] [address] Apr, [facility] [place] [facility] [address] [id number] [address] Apr, [facility] [place] [facility] [address] [id number] [place] [address] Apr, [facility] [place] [facility] [address] [id number] [place] [address] Apr, [facility] [place] [facility] [address] [id number] [place] [address] Apr, [facility] [place] [facility] [address] [id number] [place] [address] Mar, [facility] [place] [facility] [address] [id number] [place] [address] Mar, [facility] [place] [facility] [address] [id number] [place] [address] Mar, [facility] [place] [facility] [address] [id number] [place] [address] Mar, [facility] [place] [facility] [address] [id number] [place] [address] Mar, [facility] [place] [facility] [address] [id number] [place] [address] Feb, [facility] [place] [facility] [address] [id number] [place] [address] Feb, [facility] [place] [facility] [address] [id number] [place] [address] Dec, [facility] [place] [facility] [address] [id number] [place] [address] Dec, [facility] [place] [facility] [address] [id number] [place] [address] Nov, [facility] [place] [facility] [address] [id number] [place] [address] Nov, [facility] [place] [facility] [address] [id number] [place] [address] Nov, [facility] [place] [facility] [address] [id number] [place] [address] Nov, [facility] [place] [facility] [address] [id number] [place] [address] Oct, [facility] [place] [facility] [address] [id number] [place] [address] Oct, [facility] [place] [facility] [address] [id number] [place] [address] Sep, [facility] [place] [facility] [address] [id number] [place] [address] Sep, [facility] [place] [facility] [address] [id number] [place] [address] August, [facility] [place] [facility] [address] [id number] [place] [address] August, [facility] [place] [facility] [address] [id number] [place] [address] August, [facility] [place] [facility] [address] [id number] [place] [address] August, [facility] [place] [facility] [address] [id number] [place] [address] Jul, [facility] [place] [facility] [address] [id number] [place] [address] Jul, [facility] [place] [facility] [address] [id number] [place] [address] Jun, [facility] [place] [facility] [address] [id number] [place] [address] Jun, [facility] [place] [facility] [address] [id number] [place] [address] May, [facility] [place] [facility] [address] [id number] [place] [address] May, [facility] [place] [facility] [address] [id number] [place] [address] May, [facility] [place] [facility] [address] [id number] [place] [address] May, [facility] [place] [facility] [address] [id number] [place] [address] May, [facility] [place] [facility] [address] [id number] [place] [address] May, [facility] [place] [facility] [address] [id number] [place] [address] May, [facility] [place] [facility] [address] [id number] [place] [address] Apr, [facility] [place] [facility] [address] [id number] [place] [address] Apr, [facility] [place] [facility] [address] [id number] [place] [address] Apr, [facility] [place] [facility] [address] [id number] [place] [address] Apr, [facility] [place] [facility] [address] [id number] [place] [address] Apr, [facility] [place] [facility] [address] [id number] [place] [address] Apr, [facility] [place] [facility] [address] [id number] [place] [address] Apr, [facility] [place] [facility] [address] [id number] [place] [address] Apr, [facility] [place] [facility] [address] [id number] [place] [address] Apr, [facility] [place] [facility] [address] [id number] [place] [address] Apr, [facility] [place] [facility] [address] [id number] [place] [address] Mar, [facility] [place] [facility] [address] [id number] [place] [address] Mar, [facility] [place] [facility] [address] [id number] [place] [address] Mar, [facility] [place] [facility] [address] [id number] [place] [address] Mar, [facility] [place] [facility] [address] [id number] [place] [address] Feb, [facility] [place] [facility] [address] [id number] [place] [address] Feb, [facility] [place] [facility] [address] [id number] [place] [address] Feb, [facility] [place] [facility] [address] [id number] [place] [address] Feb, [facility] [place] [facility] [address] [id number] [place] [address] Feb, [facility] [place] [facility] [address] [id number] [place] [address] Feb, [facility] [place] [facility] [address] [id number] [place] [address] Jan, [facility] [place] [facility] [address] [id number] [place] [address] Jan, [facility] [place] [facility] [address] [id number] [place] [address] 05 Dec, 2012 [facility] [place] [facility] [address] [id number] [place] [address] Dec, [facility] [place] [facility] [address] [id number] [place] [address] Nov, [facility] [place] [facility] [address] [id number] [place] [address] Nov, [facility] [place] [facility] [address] [id number] [place] [address] Oct, [facility] [place] [facility] [address] [id number] [place] [address] 07 Sep, 2012 [facility] [address] [id number] [place] [address] August, [facility] [address] [id number] [place] [address] 30 Jul, 2012 [facility] [address] [id number] [place] [address] 14 Jul, 2012 [facility] [address] [id number] [place] [address] 10 Jul, 2012 [facility] [address] [id number] [place] [address] Jul, [facility] [address] [id number] [place] [address] Jul, [facility] [address] [id number] [place] [address] Jun, [facility] [address] [id number] [place] [address] May, [facility] [address] [id number] [place] [address] Apr, [facility] [address] [id number] [place] [address] Mar, [facility] [address] [id number] [place] [address] Mar, [facility] [address] [id number] [place] [address] Mar, [facility] [place] [facility] [address] [id number] [place] [address] Jan, [facility] [address] [id number] [place] [address] Jan, [facility] [address] [id number] [place] [address] Jan, [facility] [place] [facility] [address] [id number] [place] [address] Jan, [facility] [place] [facility] [address] [id number] [place] [address] Dec, [facility] [place] [facility] [address] [id number] [place] [address] Dec, [facility] [place] [facility] [address] [id number] [place] [address] Nov, [facility] [place] [facility] [address] [id number] [place] [address] Nov, [facility] [place] [facility] [address] [id number] [place] [address] Nov, [facility] [place] [facility] [address] [id number] [place] [address] Nov, [facility] [place] [facility] [address] [id number] [place] [address] Nov, [facility] [place] [facility] [address] [id number] [place] [address] Oct, [facility] [place] [facility] [address] [id number] [place] [address] Oct, [facility] [place] [facility] [address] [id number] [place] [address] Oct, [facility] [place] [facility] [address] [id number] [place] [address] Sep, [facility] [place] [facility] [address] [id number] [place] [address] August, [facility] [place] [facility] [address] [id number] [place] [address] Jul, [facility] [place] [facility] [address] [id number] [place] [address] Jul, [facility] [place] [facility] [address] [id number] [place] [address] 09 Jul, 2011 [facility] [place] [facility] [address] [id number] [place] [address] 05 Jul, 2011 [facility] [place] [facility] [address] [id number] [place] [address] 29 Jun, 2011 [facility] [place] [facility] [address] [id number] [place] [address] 28 Jun, 2011 [facility] [place] [facility] [address] [id number] [place] [address] 23 Jun, 2011 [facility] [place] [facility] [address] [id number] [place] [address] 21 Jun, 2011 [facility] [place] [facility] [address] [id number] [place] [address] 15 Jun, 2011 [facility] [place] [facility] [address] [id number] [place] [address] 28 May, 2011 [facility] [place] [facility] [address] [id number] [place] [address] 28 May, 2011 [facility] [place] [facility] [address] [id number] [place] [address] 27 May, 2011 [facility] [place] [facility] [address] [id number] [place] [address] 24 May, 2011 [facility] [place] [facility] [address] [id number] [place] [address] Apr, [facility] [place] [facility] [address] [id number] [place] [address] Mar, [facility] [place] [facility] [address] [id number] [place] [address] Mar, [facility] [place] [facility] [address] [id number] [place] [address] 17 Jun, 2010 [facility] [place] [facility] [address] [id number] [place] [address] Feb, [facility] [address] [id number] [address] Jan, [facility] [id number] [address] Jan, [facility] [id number] [address] Jan, [facility] [id number] [place] [address] Dec, [facility] [id number] [address] May, [facility] [id number] [address] Feb, [facility] [id number] [address] Feb, [facility] [id number] [address] Feb, IMMUNIZATIONS No Known Immunizations SOCIAL HISTORY Never Assessed REASON FOR VISIT EMR-[facility] [place] PLAN OF CARE VITAL SIGNS MEDICATIONS Unknown [...]
--- OUTSIDE RECORDS SUMMARY | 2018-11-21 21:53 | XMS REPORT ---
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 Role Phone CINDY, LUIS Unavailable PROBLEMS Type Condition ICD9-CM Code JFB11-HK Code Onset Dates Condition Status SNOMED Code Problem Lumbar spondylosis M47.816 Active 806757716 Problem Insomnia G47.00 Active 653181934 Problem Facet arthropathy, lumbar M46.96 Active 986834923 Problem Depression F32.9 Active 99891144 Problem COPD (chronic obstructive pulmonary disease) J44.9 Active 16759400 Problem Constipation due to outlet dysfunction K59.02 Active 88004529 Problem Restless legs G25.81 Active 79556554 Problem Anxiety F41.9 Active 25597505 Problem Generalized anxiety disorder F41.1 Active 22588655 Problem Psychophysiological insomnia F51.04 Active 037065216 Problem Chronic obstructive pulmonary disease, unspecified COPD type J44.9 Active 64989978 Problem Major depressive disorder, recurrent episode, moderate with anxious distress F33.1 Active 621397683 Problem Gastroesophageal reflux disease, esophagitis presence not specified K21.9 Active 977126185 Problem Essential hypertension I10 Active 37357555 Problem Hypercholesterolemia E78.00 Active 84456825 Problem Other obesity due to excess calories E66.09 Active 402953141 Problem Other chronic pain G89.29 Active 79505765 Problem COPD exacerbation J44.1 Active 645096958 ALLERGIES No Information ENCOUNTERS Encounter Location Date Diagnosis [facility] [id number] [address] Jul, [facility] [address] [address] Jun, Severe episode of recurrent major depressive disorder, without psychotic features F33.2 [facility] [id number] [place] [address] Jun, Severe episode of recurrent major depressive disorder, without psychotic features F33.2 [address] [address] Jun, Severe episode of recurrent major depressive disorder, without psychotic features F33.2 ; Generalized anxiety disorder F41.1 and Psychophysiological insomnia F51.04 [address] [address] [address] May, COPD (chronic obstructive pulmonary disease) J44.9 [address] [address] [address] May, COPD (chronic obstructive pulmonary disease) J44.9 ; Essential hypertension I10 ; Gastroesophageal reflux disease, esophagitis presence not specified K21.9 ; Viral illness B34.9 and Tongue lesion K14.8 [place] [address] Apr, Severe episode of recurrent major depressive disorder, without psychotic features F33.2 [place] [address] [address] Mar, COPD exacerbation J44.1 [place] [address] [address] 05 Mar, 2018 COPD (chronic obstructive pulmonary disease) J44.9 [place] [address] [address] Feb, Severe episode of recurrent major depressive disorder, without psychotic features F33.2 ; Generalized anxiety disorder F41.1 and Psychophysiological insomnia F51.04 [place] [address] [address] 13 Dec, 2017 Fever, unspecified fever cause R50.9 ; Nausea and vomiting, intractability of vomiting not specified, unspecified vomiting type R11.2 ; Wheezing on auscultation R06.2 ; COPD (chronic obstructive pulmonary disease) J44.9 and Acute maxillary sinusitis, recurrence not specified J01.00 [place] [id number] [place] [address] 07 Dec, 2017 Edema of lower extremity R60.0 [place] [address] [address] Dec, [place] [address] [address] Nov, Essential hypertension I10 [address] [address] [address] Nov, [place] [address] [address] Nov, Severe episode of recurrent major depressive disorder, without psychotic features F33.2 ; Generalized anxiety disorder F41.1 and Psychophysiological insomnia F51.04 [place] [address] [address] Nov, COPD (chronic obstructive pulmonary disease) J44.9 ; Essential hypertension I10 ; Lumbar spondylosis M47.816 ; Generalized anxiety disorder F41.1 ; Rash and nonspecific skin eruption R21 ; Pain in joints of right hand M25.541 ; Pain in joints of left hand M25.542 and Hypercholesterolemia E78.00 [place] [id number] [place] [address] Nov, Rash and nonspecific skin eruption R21 and Non-intractable vomiting with nausea, unspecified vomiting type R11.2 [place] [id number] [place] [address] Oct, [place] [id number] [place] [address] Sep, Pain aggravated by standing R52 [place] [address] [address] Sep, Other depression F32.89 [place] [address] [address] Sep, Chronic obstructive pulmonary disease, unspecified COPD type J44.9 ; Pain aggravated by standing R52 ; Other depression F32.89 ; Major depressive disorder, recurrent episode, moderate with anxious distress F33.1 ; Restless legs G25.81 ; Insomnia G47.00 ; Gastroesophageal reflux disease with esophagitis K21.0 ; Essential hypertension I10 ; Generalized anxiety disorder F41.1 and Hypercholesterolemia E78.00 [address] [place] [address] [address] Jul, Fever, unspecified fever cause R50.9 and Cough R05 [address] [address] Jul, [address] [address] Jul, Gastroesophageal reflux disease with esophagitis K21.[address] [address] Jul, [address] [id number] [place] [address] Jun, COPD (chronic obstructive pulmonary disease) J44.9 ; Restless legs G25.81 ; Insomnia G47.00 ; Essential hypertension I10 ; Major depressive disorder, recurrent episode, moderate with anxious distress F33.1 ; Gastroesophageal reflux disease with esophagitis K21.0 ; Constipation due to outlet dysfunction K59.02 ; Hypercholesterolemia E78.00 ; Other chronic pain G89.29 and Generalized abdominal pain R10.84 [place] [id number] [place] [address] Jun, [id number] [place] [address] Jun, Acute recurrent sinusitis, unspecified location J01.91 and COPD exacerbation J44.1 [id number] [place] [address] 07 Jun, 2017 Lumbago with sciatica, unspecified side M54.40 [id number] [address] May, [place] [id number] [place] [address] May, Severe episode of recurrent major depressive disorder, without psychotic features F33.2 [place] [id number] [place] [address] Apr, COPD (chronic obstructive pulmonary disease) J44.9 [...] index (BMI) of 32.0-32.9 in adult Z68.32 [place] [id number] [place] [address] Apr, Severe episode of recurrent major depressive disorder, without psychotic features F33.2 [place] [id number] [place] [address] Feb, Severe episode of recurrent major depressive disorder, without psychotic features F33.2 and Restless legs G25.81 [place] [address] [place] [address] Feb, Severe episode of recurrent major depressive disorder, without psychotic features F33.2 ; Generalized anxiety disorder F41.1 and Psychophysiological insomnia F51.04 [address] [address] [place] [address] Dec, Severe episode of recurrent major depressive disorder, without psychotic features F33.2 ; Generalized anxiety disorder F41.1 and Psychophysiological insomnia F51.04 [address] [address] [place] [address] Nov, Severe episode of recurrent major depressive disorder, without psychotic features F33.2 ; Generalized anxiety disorder F41.1 and Psychophysiological insomnia F51.04 [place] [id number] [place] [address] Nov, [place] [id number] [place] [address] Nov, Depression F32.9 [place] [id number] [place] [address] Nov, Depression F32.9 ; Insomnia G47.00 and Anxiety F41.9 [place] [id number] [place] [address] August, COPD (chronic obstructive pulmonary disease) J44.9 ; Depression F32.9 ; Anxiety F41.9 ; Major depressive disorder, recurrent episode, moderate with anxious distress F33.1 ; Insomnia G47.00 ; Restless legs G25.81 ; Essential hypertension I10 and Pure hypercholesterolemia E78.00 [address] [address] [address] August, Acute intractable tension-type headache G44.201 [facility] [id number] [place] [address] Jul, Left wrist pain M25.532 and Strain of left wrist, initial encounter S66.912A [address] [place] [id number] [place] [address] 14 May, 2016 Gastroesophageal reflux disease with esophagitis K21.0 and Anxiety F41.9 [place] [id number] [place] [address] 13 May, 2016 Major depressive disorder, recurrent episode, moderate with anxious distress F33.1 ; COPD (chronic obstructive pulmonary disease) J44.9 ; Restless legs G25.81 ; Insomnia G47.00 ; Essential hypertension I10 ; Anxiety F41.9 ; Constipation due to outlet dysfunction K59.02 ; Torsion of intestine, bowel or colon K56.2 ; Hypercholesterolemia E78.00 and Gastroesophageal reflux disease with esophagitis K21.0 [address] [place] [address] 07 Feb, 2016 [place] [id number] [place] [address] 20 Dec, 2015 Essential hypertension I10 ; Depression F32.9 ; Anxiety F41.9 ; Constipation due to outlet dysfunction K59.02 ; Torsion of intestine, bowel or colon K56.2 ; COPD (chronic obstructive pulmonary disease) J44.9 ; Insomnia G47.00 ; Restless legs G25.81 and Gastroesophageal reflux disease with esophagitis K21.0 [address] [place] [address] 08 Dec, 2015 Essential hypertension I10 ; Major depressive disorder, recurrent episode, moderate with anxious distress F33.1 ; COPD (chronic obstructive pulmonary disease) J44.9 ; Restless legs G25.81 ; Insomnia G47.00 ; Constipation due to outlet dysfunction K59.02 and Gastroesophageal reflux disease without esophagitis K21.9 [address] [place] [id number] [place] [address] 07 Dec, 2015 Major depressive disorder, recurrent episode, moderate with anxious distress F33.1 [address] [place] [address] [address] Sep, [place] [id number] [place] [address] 23 Sep, 2015 Nausea R11.0 [address] [id number] [place] [address] 15 Sep, 2015 Lower abdominal pain R10.30 ; COPD (chronic obstructive pulmonary disease) J44.9 ; Restless legs G25.81 ; Essential hypertension I10 ; Depression F32.9 ; Other chronic pain G89.29 ; Lumbago with sciatica, unspecified side M54.40 and Primary insomnia F51.01 [address] [id number] [place] [address] August, [address] [place] [address] August, COPD (chronic obstructive pulmonary disease) J44.9 ; Insomnia G47.00 ; Depression F32.9 and Constipation due to outlet dysfunction K59.02 [address] [place] [id number] [place] [address] August, [address] [place] [address] August, [address] [place] [address] [address] August, Nausea & vomiting R11.2 [address] [place] [address] Jun, [address] [place] [address] Jun, Unspecified abdominal pain R10.9 ; Depression, major, recurrent, moderate 296.32 ; COPD (chronic obstructive pulmonary disease) J44.9 ; Restless legs G25.81 ; Insomnia G47.00 ; Intestinal abscess K63.0 ; HTN (hypertension) I10 and Hypercholesteremia E78.0 [address] [id number] [place] [address] Jun, Intestinal abscess K63.0 [address] [place] [id number] [place] [address] May, [address] [id number] [place] [address] May, [address] [id number] [place] [address] May, Unspecified abdominal pain R10.9 [address] [place] [id number] [place] [address] May, Depression, major, recurrent, moderate 296.32 ; COPD (chronic obstructive pulmonary disease) J44.9 ; Restless legs G25.81 ; Insomnia G47.00 ; Depression F32.9 ; HTN (hypertension) I10 and Hypercholesterolemia E78.0 [address] [place] [address] Apr, [id number] [place] [address] Mar, Cellulitis L03.90 [address] [id number] [place] [address] Feb, Recurrent major depression-severe F33.2 [address] [place] [id number] [place] [address] Feb, Hyperlipemia E78.5 and High blood pressure I10 [address] [place] [address] Feb, COPD (chronic obstructive pulmonary disease) J44.9 ; Restless legs G25.81 ; Insomnia G47.00 ; Depression F32.9 and HTN (hypertension) I10 [address] [id number] [place] [address] Jan, [address] [id number] [place] [address] Jan, Generalized anxiety disorder F41.1 and Recurrent major depression- severe F33.2 [address] [id number] [place] [address] Jan, Bronchitis J40 [address] [id number] [place] [address] Jan, Shoulder pain, right M25.511 and Low back pain M54.5 [address] [place] [id number] [place] [address] Jan, [address] [place] [id number] [place] [address] Oct, [address] [id number] [place] [address] Oct, Generalized anxiety disorder 300.02 and Depression, major, severe recurrence 296.33 [facility] [address] [place] [address] Oct, [facility] [address] [place] [address] Oct, Depression, major, recurrent, moderate 296.32 [facility] [address] [address] August, [facility] [address] [address] Jul, [facility] [address] [place] [address] Jul, [facility] [id number] [place] [address] Jun, [facility] [id number] [place] [address] Jun, [facility] [address] [address] May, [facility] [address] [address] May, [facility] [address] [address] May, [facility] [address] [address] May, [facility] [address] [address] May, [facility] [address] [address] May, [facility] [address] [address] May, [facility] [address] [address] May, [facility] [place] [facility] [address] [id number] [place] [address] May, [facility] [place] [facility] [address] [id number] [place] [address] May, [facility] [place] [facility] [address] [id number] [place] [address] May, [facility] [place] [facility] [address] [id number] [place] [address] May, [facility] [place] [facility] [address] [id number] [place] [address] Apr, [facility] [place] [facility] [address] [id number] [place] [address] Apr, [facility] [place] [facility] [address] [id number] [place] [address] Apr, [facility] [place] [facility] [address] [id number] [place] [address] Apr, [facility] [place] [facility] [address] [id number] [place] [address] Apr, [facility] [place] [facility] [address] [id number] [place] [address] Apr, [facility] [place] [facility] [address] [id number] [place] [address] Apr, [facility] [place] [facility] [address] [id number] [address] Apr, [facility] [place] [facility] [address] [id number] [place] [address] Apr, [facility] [place] [facility] [address] [id number] [place] [address] Apr, [facility] [place] [facility] [address] [id number] [place] [address] Mar, [facility] [place] [facility] [address] [id number] [place] [address] 16 Mar, 2014 [facility] [place] [facility] [address] [id number] [place] [address] Mar, [facility] [place] [facility] [address] [id number] [place] [address] Mar, [facility] [place] [facility] [address] [id number] [place] [address] Mar, [facility] [place] [facility] [address] [id number] [place] [address] Feb, [facility] [place] [facility] [address] [id number] [place] [address] Feb, [facility] [place] [facility] [address] [id number] [place] [address] Dec, [facility] [place] [facility] [address] [id number] [place] [address] Dec, [facility] [place] [facility] [address] [id number] [place] [address] Nov, [facility] [place] [facility] [address] [id number] [place] [address] Nov, [facility] [place] [facility] [address] [id number] [place] [address] Nov, [facility] [place] [facility] [address] [id number] [place] [address] Nov, [facility] [place] [facility] [address] [id number] [place] [address] Oct, [facility] [place] [facility] [address] [id number] [place] [address] Oct, [facility] [place] [facility] [address] [id number] [place] [address] Sep, [facility] [place] [facility] [address] [id number] [place] [address] Sep, [facility] [place] [facility] [address] [id number] [place] [address] August, [facility] [place] [facility] [address] [id number] [place] [address] August, [facility] [place] [facility] [address] [id number] [place] [address] August, [facility] [place] [facility] [address] [id number] [place] [address] August, [facility] [place] [facility] [address] [id number] [place] [address] Jul, [facility] [place] [facility] [address] [id number] [place] [address] Jul, [facility] [place] [facility] [address] [id number] [place] [address] Jun, [facility] [place] [facility] [address] [id number] [place] [address] Jun, [facility] [place] [facility] [address] [id number] [place] [address] May, [facility] [place] [facility] [address] [id number] [place] [address] May, [facility] [place] [facility] [address] [id number] [place] [address] May, [facility] [place] [facility] [address] [id number] [place] [address] May, [facility] [place] [facility] [address] [id number] [place] [address] May, [facility] [place] [facility] [address] [id number] [place] [address] May, [facility] [place] [facility] [address] [id number] [place] [address] May, [facility] [place] [facility] [address] [id number] [place] [address] Apr, [facility] [address] [id number] [place] [address] Apr, [facility] [place] [facility] [address] [id number] [place] [address] Apr, [facility] [address] [id number] [place] [address] Apr, [facility] [place] [facility] [address] [id number] [place] [address] Apr, [facility] [address] [id number] [place] [address] Apr, [facility] [address] [id number] [place] [address] Apr, [facility] [address] [id number] [place] [address] Apr, [facility] [address] [id number] [place] [address] Apr, [facility] [address] [id number] [place] [address] Apr, [facility] [address] [id number] [place] [address] Mar, [facility] [place] [facility] [address] [id number] [place] [address] Mar, [facility] [place] [facility] [address] [id number] [place] [address] Mar, [facility] [place] [facility] [address] [id number] [place] [address] Mar, [facility] [place] [facility] [address] [id number] [place] [address] Feb, [facility] [place] [facility] [address] [id number] [place] [address] Feb, [facility] [place] [facility] [address] [id number] [place] [address] Feb, [facility] [place] [facility] [address] [id number] [place] [address] Feb, [facility] [place] [facility] [address] [id number] [place] [address] Feb, [facility] [place] [facility] [address] [id number] [place] [address] Feb, [facility] [address] [id number] [place] [address] Jan, [facility] [place] [facility] [address] [id number] [place] [address] Jan, [facility] [address] [id number] [place] [address] 05 Dec, 2012 [facility] [place] [facility] [address] [id number] [place] [address] Dec, [facility] [place] [facility] [address] [id number] [place] [address] Nov, [facility] [place] [facility] [address] [id number] [place] [address] Nov, [facility] [place] [facility] [address] [id number] [place] [address] Oct, [facility] [place] [facility] [address] [id number] [address] Sep, [facility] [place] [facility] [address] [id number] [place] [address] August, [facility] [place] [facility] [address] [id number] [place] [address] 30 Jul, 2012 [facility] [place] [facility] [address] [id number] [place] [address] Jul, [facility] [place] [facility] [address] [id number] [address] Jul, [facility] [place] [facility] [address] [id number] [place] [address] Jul, [facility] [place] [facility] [address] [id number] [place] [address] Jul, [facility] [place] [facility] [address] [id number] [place] [address] Jun, [facility] [place] [facility] [address] [id number] [place] [address] May, [facility] [place] [facility] [address] [id number] [place] [address] Apr, [facility] [place] [facility] [address] [id number] [place] [address] Mar, [facility] [place] [facility] [address] [id number] [place] [address] Mar, [facility] [place] [facility] [address] [id number] [place] [address] Mar, [facility] [place] [facility] [address] [id number] [place] [address] Jan, [facility] [place] [facility] [address] [id number] [place] [address] Jan, [facility] [place] [facility] [address] [id number] [place] [address] Jan, [facility] [place] [facility] [address] [id number] [place] [address] Jan, [facility] [place] [facility] [address] [id number] [place] [address] Dec, [facility] [place] [facility] [address] [id number] [place] [address] Dec, [facility] [place] [facility] [address] [id number] [place] [address] Nov, [facility] [place] [facility] [address] [id number] [place] [address] Nov, [facility] [place] [facility] [address] [id number] [place] [address] Nov, [facility] [place] [facility] [address] [id number] [place] [address] Nov, [facility] [place] [facility] [address] [id number] [place] [address] Nov, [facility] [place] [facility] [address] [id number] [place] [address] Oct, [facility] [place] [facility] [address] [id number] [place] [address] Oct, [facility] [place] [facility] [address] [id number] [place] [address] Oct, [facility] [place] [facility] [address] [id number] [place] [address] Sep, [facility] [address] [id number] [place] [address] August, [facility] [place] [facility] [address] [id number] [place] [address] Jul, [facility] [place] [facility] [address] [id number] [place] [address] Jul, [facility] [place] [facility] [address] [id number] [place] [address] Jul, [facility] [place] [facility] [address] [id number] [place] [address] Jul, [facility] [place] [facility] [address] [id number] [place] [address] Jun, [facility] [place] [facility] [address] [id number] [place] [address] Jun, [facility] [place] [facility] [address] [id number] [place] [address] Jun, [facility] [place] [facility] [address] [id number] [place] [address] Jun, [facility] [place] [facility] [address] [id number] [place] [address] Jun, [facility] [place] [facility] [address] [id number] [place] [address] May, [facility] [place] [facility] [address] [id number] [place] [address] May, [facility] [place] [facility] [address] [id number] [place] [address] May, [facility] [place] [facility] [address] [id number] [place] [address] May, [facility] [place] [facility] [address] [id number] [place] [address] Apr, [facility] [place] [facility] [address] [id number] [place] [address] Mar, [facility] [place] [facility] [address] [id number] [place] [address] Mar, [facility] [place] [facility] [address] [id number] [place] [address] Jun, [facility] [place] [facility] [address] [id number] [place] [address] Feb, [facility] [place] [facility] [address] [id number] [place] [address] Jan, [facility] [place] [facility] [address] [id number] [place] [address] Jan, [facility] [place] [facility] [address] [id number] [place] [address] Jan, [facility] [place] [facility] [address] [id number] [place] [address] Dec, [facility] [place] [facility] [address] [facility] [id number] [place] [address] May, [facility] [address] [facility] [id number] [address] Feb, [facility] [address] [facility] [id number], [place] [address] Feb, [facility] [address] [facility] [id number], [place] [address] Feb, IMMUNIZATIONS No Known Immunizations SOCIAL HISTORY Never Assessed REASON FOR VISIT PLAN OF CARE VITAL SIGNS MEDICATIONS Medication Instructions Dosage Frequency Start Date End Date Duration Status Mirtazapine 45 MG Orally Once a day 1 tablet at bedtime 24h Jun, 30 day(s) Active RESULTS No Results PROCEDURES No Known [...]
--- OUTSIDE RECORDS SUMMARY | 2018-11-21 21:53 | XMS REPORT ---
Author Author Migration, Doctor Organization [facility] Address Unknown Phone Unavailable Care Team Providers Care Police Cadet Name Role Phone Migration, Doctor Unavailable Unavailable PROBLEMS Type Condition ICD9-CM Code LRF11-UC Code Onset Dates Condition Status SNOMED Code Problem Lumbar spondylosis M47.816 Active 083097659 Problem Insomnia G47.00 Active 252661805 Problem Facet arthropathy, lumbar M46.96 Active 726573509 Problem Depression F32.9 Active 41513431 Problem COPD (chronic obstructive pulmonary disease) J44.9 Active 91808541 Problem Constipation due to outlet dysfunction K59.02 Active 01519421 Problem Restless legs G25.81 Active 11938183 Problem Anxiety F41.9 Active 17166786 Problem Generalized anxiety disorder F41.1 Active 07520531 Problem Psychophysiological insomnia F51.04 Active 349805445 Problem Chronic obstructive pulmonary disease, unspecified COPD type J44.9 Active 51606651 Problem Major depressive disorder, recurrent episode, moderate with anxious distress F33.1 Active 023040564 Problem Gastroesophageal reflux disease, esophagitis presence not specified K21.9 Active 987859137 Problem Essential hypertension I10 Active 20909380 Problem Hypercholesterolemia E78.00 Active 82756212 Problem Other obesity due to excess calories E66.09 Active 256816027 Problem Other chronic pain G89.29 Active 18311905 Problem COPD exacerbation J44.1 Active [id number] ALLERGIES No Information ENCOUNTERS Encounter Location Date Diagnosis [facility] [id number] [address] Jul, [facility] [id number] [place] [address] Jun, Severe episode of recurrent major depressive disorder, without psychotic features F33.2 [facility] [id number] [address] Jun, Severe episode of recurrent major depressive disorder, without psychotic features F33.2 ; Generalized anxiety disorder F41.1 and Psychophysiological insomnia F51.04 [facility] [id number] [place] [address] May, COPD (chronic obstructive pulmonary disease) J44.9 [facility] [facility] [id number] [place] [address] May, COPD (chronic obstructive pulmonary disease) J44.9 ; Essential hypertension I10 ; Gastroesophageal reflux disease, esophagitis presence not specified K21.9 ; Viral illness B34.9 and Tongue lesion K14.[address] [address] Apr, Severe episode of recurrent major depressive disorder, without psychotic features F33.[address] [address] Mar, COPD exacerbation J44.[address] [address] 05 Mar, 2018 COPD (chronic obstructive pulmonary disease) J44.[address] [address] Feb, Severe episode of recurrent major depressive disorder, without psychotic features F33.2 ; Generalized anxiety disorder F41.1 and Psychophysiological insomnia F51.04 [id number] [place] [address] 13 Dec, 2017 Fever, unspecified fever cause R50.9 ; Nausea and vomiting, intractability of vomiting not specified, unspecified vomiting type R11.2 ; Wheezing on auscultation R06.2 ; COPD (chronic obstructive pulmonary disease) J44.9 and Acute maxillary sinusitis, recurrence not specified J01.[address] [address] 07 Dec, 2017 Edema of lower extremity R60.[address] [address] 06 Dec, 2017 [place] [id number] [place] [address] Nov, Essential hypertension I10 [place] [address] [address] Nov, [facility] [id number] [place] [address] Nov, Severe episode of recurrent major depressive disorder, without psychotic features F33.2 ; Generalized anxiety disorder F41.1 and Psychophysiological insomnia F51.04 [place] [id number] [place] [address] Nov, COPD (chronic obstructive pulmonary disease) J44.9 ; Essential hypertension I10 ; Lumbar spondylosis M47.816 ; Generalized anxiety disorder F41.1 ; Rash and nonspecific skin eruption R21 ; Pain in joints of right hand M25.541 ; Pain in joints of left hand M25.542 and Hypercholesterolemia E78.00 [place] [id number] [place] [address] Nov, Rash and nonspecific skin eruption R21 and Non-intractable vomiting with nausea, unspecified vomiting type R11.2 [id number] [place] [address] Oct, [facility] [facility] [id number] [place] [address] Sep, Pain aggravated by standing R52 [facility] [facility] [id number] [place] [address] Sep, Other depression F32.89 [place] [id number] [place] [address] Sep, Chronic obstructive pulmonary disease, unspecified COPD type J44.9 ; Pain aggravated by standing R52 ; Other depression F32.89 ; Major depressive disorder, recurrent episode, moderate with anxious distress F33.1 ; Restless legs G25.81 ; Insomnia G47.00 ; Gastroesophageal reflux disease with esophagitis K21.0 ; Essential hypertension I10 ; Generalized anxiety disorder F41.1 and Hypercholesterolemia E78.00 [address] [address] [address] Jul, Fever, unspecified fever cause R50.9 and Cough R05 [address] [address] [address] Jul, [address] [address] [address] Jul, Gastroesophageal reflux disease with esophagitis K21.[address] [address] Jul, [address] [address] [address] Jun, COPD (chronic obstructive pulmonary disease) J44.9 ; Restless legs G25.81 ; Insomnia G47.00 ; Essential hypertension I10 ; Major depressive disorder, recurrent episode, moderate with anxious distress F33.1 ; Gastroesophageal reflux disease with esophagitis K21.0 ; Constipation due to outlet dysfunction K59.02 ; Hypercholesterolemia E78.00 ; Other chronic pain G89.29 and Generalized abdominal pain R10.84 [place] [address] [address] Jun, [address] [address] Jun, Acute recurrent sinusitis, unspecified location J01.91 and COPD exacerbation J44.[address] [address] Jun, Lumbago with sciatica, unspecified side M54.[address] [address] May, [address] [address] May, Severe episode of recurrent major depressive disorder, without psychotic features F33.[address] [address] Apr, COPD (chronic obstructive pulmonary disease) J44.9 [...] index (BMI) of 32.0-32.9 in adult Z68.32 [place] [id number] [place] [address] Apr, Severe episode of recurrent major depressive disorder, without psychotic features F33.2 [id number] [place] [address] Feb, Severe episode of recurrent major depressive disorder, without psychotic features F33.2 and Restless legs G25.81 [place] [id number] [place] [address] Feb, Severe episode of recurrent major depressive disorder, without psychotic features F33.2 ; Generalized anxiety disorder F41.1 and Psychophysiological insomnia F51.04 [address] [address] [place] [address] Dec, Severe episode of recurrent major depressive disorder, without psychotic features F33.2 ; Generalized anxiety disorder F41.1 and Psychophysiological insomnia F51.04 [place] [id number] [place] [address] Nov, Severe episode of recurrent major depressive disorder, without psychotic features F33.2 ; Generalized anxiety disorder F41.1 and Psychophysiological insomnia F51.04 [address] [place] [address] [place] [address] Nov, [address] [id number] [place] [address] Nov, Depression F32.9 [address] [place] [address] [place] [address] Nov, Depression F32.9 ; Insomnia G47.00 and Anxiety F41.9 [place] [address] [address] August, COPD (chronic obstructive pulmonary disease) J44.9 ; Depression F32.9 ; Anxiety F41.9 ; Major depressive disorder, recurrent episode, moderate with anxious distress F33.1 ; Insomnia G47.00 ; Restless legs G25.81 ; Essential hypertension I10 and Pure hypercholesterolemia E78.00 [address] [address] [address] August, Acute intractable tension-type headache G44.201 [facility] [id number] [place] [address] Jul, Left wrist pain M25.532 and Strain of left wrist, initial encounter S66.912A [place] [id number] [place] [address] 14 May, 2016 Gastroesophageal reflux disease with esophagitis K21.0 and Anxiety F41.9 [place] [id number] [place] [address] 13 May, 2016 Major depressive disorder, recurrent episode, moderate with anxious distress F33.1 ; COPD (chronic obstructive pulmonary disease) J44.9 ; Restless legs G25.81 ; Insomnia G47.00 ; Essential hypertension I10 ; Anxiety F41.9 ; Constipation due to outlet dysfunction K59.02 ; Torsion of intestine, bowel or colon K56.2 ; Hypercholesterolemia E78.00 and Gastroesophageal reflux disease with esophagitis K21.0 [address] [id number] [place] [address] Feb, [id number] [place] [address] Dec, Essential hypertension I10 ; Depression F32.9 ; Anxiety F41.9 ; Constipation due to outlet dysfunction K59.02 ; Torsion of intestine, bowel or colon K56.2 ; COPD (chronic obstructive pulmonary disease) J44.9 ; Insomnia G47.00 ; Restless legs G25.81 and Gastroesophageal reflux disease with esophagitis K21.0 [place] [id number] [place] [address] 08 Dec, 2015 Essential hypertension I10 ; Major depressive disorder, recurrent episode, moderate with anxious distress F33.1 ; COPD (chronic obstructive pulmonary disease) J44.9 ; Restless legs G25.81 ; Insomnia G47.00 ; Constipation due to outlet dysfunction K59.02 and Gastroesophageal reflux disease without esophagitis K21.9 [address] [place] [address] [address] 07 Dec, 2015 Major depressive disorder, recurrent episode, moderate with anxious distress F33.1 [address] [address] [address] Sep, [address] [address] [address] Sep, Nausea R11.0 [address] [address] 15 Sep, 2015 Lower abdominal pain R10.30 ; COPD (chronic obstructive pulmonary disease) J44.9 ; Restless legs G25.81 ; Essential hypertension I10 ; Depression F32.9 ; Other chronic pain G89.29 ; Lumbago with sciatica, unspecified side M54.40 and Primary insomnia F51.01 [place] [id number] [place] [address] August, [address] [address] August, COPD (chronic obstructive pulmonary disease) J44.9 ; Insomnia G47.00 ; Depression F32.9 and Constipation due to outlet dysfunction K59.02 [address] [address] [address] August, [place] [id number] [place] [address] August, [facility] [address] [address] August, Nausea & vomiting R11.2 [facility] [id number] [place] [address] Jun, [facility] [address] [address] Jun, Unspecified abdominal pain R10.9 ; Depression, major, recurrent, moderate 296.32 ; COPD (chronic obstructive pulmonary disease) J44.9 ; Restless legs G25.81 ; Insomnia G47.00 ; Intestinal abscess K63.0 ; HTN (hypertension) I10 and Hypercholesteremia E78.0 [address] [place] [id number] [place] [address] Jun, Intestinal abscess K63.0 [facility] [id number] [place] [address] May, [facility] [id number] [place] [address] May, [facility] [id number] [place] [address] May, Unspecified abdominal pain R10.9 [address] [id number] [place] [address] May, Depression, major, recurrent, moderate 296.32 ; COPD (chronic obstructive pulmonary disease) J44.9 ; Restless legs G25.81 ; Insomnia G47.00 ; Depression F32.9 ; HTN (hypertension) I10 and Hypercholesterolemia E78.0 [facility] [id number] [place] [address] Apr, [facility] [id number] [place] [address] Mar, Cellulitis L03.90 [facility] [id number] [place] [address] Feb, Recurrent major depression-severe F33.2 [address] [place] [address] [address] Feb, Hyperlipemia E78.5 and High blood pressure I10 [address] [address] Feb, COPD (chronic obstructive pulmonary disease) J44.9 ; Restless legs G25.81 ; Insomnia G47.00 ; Depression F32.9 and HTN (hypertension) I10 [address] [place] [address] [address] Jan, [address] [address] [address] Jan, Generalized anxiety disorder F41.1 and Recurrent major depression- severe F33.2 [address] [place] [address] [address] Jan, Bronchitis J40 [address] [address] [address] Jan, Shoulder pain, right M25.511 and Low back pain M54.5 [place] [address] [address] Jan, [address] [address] [address] Oct, [facility] [id number] [place] [address] Oct, Generalized anxiety disorder 300.02 and Depression, major, severe recurrence 296.33 [facility] [id number] [place] [address] Oct, [facility] [address] [address] Oct, Depression, major, recurrent, moderate 296.32 [facility] [place] [facility] [address] [place] [address] August, [facility] [place] [facility] [address] [place] [address] Jul, [facility] [place] [facility] [address] [place] [address] Jul, [facility] [place] [facility] [address] [facility] [id number] [place] [address], [place] [address] Jun, [facility] [place] [facility] [address] [place] [address] Jun, [facility] [place] [facility] [id number] [place] [address] May, [facility] [place] [facility] [id number] [place] [address] May, [facility] [place] [facility] [address] [address] May, [facility] [place] [facility] [address] [place] [address] May, [facility] [place] [facility] [address] [place] [address] May, [facility] [place] [facility] [address] [address] May, 2014 [facility] [place] [facility] [address] [address] May, [facility] [place] [facility] [address] [address] May, 2014 [facility] [place] [facility] [address] [address] May, [facility] [place] [facility] [address] [address] May, 2014 [facility] [place] [facility] [address] [id number] [place] [address] May, [facility] [place] [facility] [address] [id number] [place] [address] May, [facility] [place] [facility] [address] [id number] [place] [address] Apr, [facility] [place] [facility] [address] [id number] [place] [address] Apr, [facility] [place] [facility] [address] [id number] [place] [address] Apr, [facility] [place] [facility] [address] [id number] [place] [address] Apr, [facility] [place] [facility] [address] [id number] [place] [address] Apr, [facility] [place] [facility] [address] [id number] [place] [address] Apr, [facility] [place] [facility] [address] [id number] [place] [address] Apr, [facility] [place] [facility] [address] [id number] [place] [address] Apr, [facility] [place] [facility] [address] [id number] [place] [address] Apr, [facility] [place] [facility] [address] [id number] [place] [address] Apr, [facility] [place] [facility] [address] [id number] [place] [address] Mar, [facility] [place] [facility] [address] [id number] [place] [address] Mar, [facility] [place] [facility] [address] [id number] [place] [address] Mar, [facility] [place] [facility] [address] [id number] [place] [address] Mar, [facility] [place] [facility] [address] [id number] [place] [address] Mar, [facility] [place] [facility] [address] [id number] [place] [address] Feb, [facility] [place] [facility] [address] [id number] [place] [address] Feb, [facility] [place] [facility] [address] [id number] [place] [address] Dec, [facility] [place] [facility] [address] [id number] [place] [address] Dec, [facility] [place] [facility] [address] [id number] [place] [address] Nov, [facility] [place] [facility] [address] [id number] [place] [address] Nov, [facility] [place] [facility] [address] [id number] [place] [address] Nov, [facility] [place] [facility] [address] [id number] [place] [address] Nov, [facility] [place] [facility] [address] [id number] [place] [address] Oct, [facility] [place] [facility] [address] [id number] [place] [address] Oct, [facility] [place] [facility] [address] [id number] [place] [address] Sep, [facility] [place] [facility] [address] [id number] [place] [address] Sep, [facility] [place] [facility] [address] [id number] [place] [address] August, [facility] [place] [facility] [address] [id number] [place] [address] August, [facility] [place] [facility] [address] [id number] [place] [address] August, [facility] [address] [id number] [place] [address] August, [facility] [place] [facility] [address] [id number] [place] [address] Jul, [facility] [place] [facility] [address] [id number] [place] [address] Jul, [facility] [place] [facility] [address] [id number] [place] [address] Jun, [facility] [place] [facility] [address] [id number] [place] [address] Jun, [facility] [place] [facility] [address] [id number] [place] [address] May, [facility] [place] [facility] [address] [id number] [place] [address] May, [facility] [place] [facility] [address] [id number] [place] [address] May, [facility] [place] [facility] [address] [id number] [place] [address] May, [facility] [place] [facility] [address] [facility] [id number] [place] [address] May, [facility] [place] [facility] [address] [id number] [place] [address] May, [facility] [place] [facility] [address] [id number] [place] [address] May, [facility] [place] [facility] [address] [id number] [place] [address] Apr, [facility] [place] [facility] [address] [id number] [place] [address] Apr, [facility] [place] [facility] [address] [id number] [place] [address] Apr, [facility] [address] [id number] [place] [address] Apr, [facility] [place] [facility] [address] [id number] [place] [address] Apr, [facility] [place] [facility] [address] [id number] [place] [address] Apr, [facility] [place] [facility] [address] [id number] [place] [address] Apr, [facility] [place] [facility] [address] [id number] [place] [address] Apr, [facility] [place] [facility] [address] [id number] [place] [address] Apr, [facility] [place] [facility] [address] [id number] [place] [address] Apr, [facility] [place] [facility] [address] [id number] [address] Mar, [facility] [place] [facility] [address] [id number] [place] [address] Mar, [facility] [place] [facility] [address] [id number] [place] [address] Mar, [facility] [place] [facility] [address] [id number] [address] Mar, [facility] [place] [facility] [address] [id number] [address] Feb, [facility] [place] [facility] [address] [id number] [place] [address] Feb, [facility] [place] [facility] [address] [id number] [address] Feb, [facility] [place] [facility] [address] [id number] [place] [address] Feb, [facility] [place] [facility] [address] [id number] [place] [address] 16 Feb, 2013 [facility] [address] [id number] [place] [address] 16 Feb, 2013 [facility] [place] [facility] [address] [id number] [place] [address] Jan, [facility] [place] [facility] [address] [id number] [place] [address] Jan, [facility] [place] [facility] [address] [id number] [place] [address] 05 Dec, 2012 [facility] [place] [facility] [address] [id number] [place] [address] Dec, [facility] [place] [facility] [address] [id number] [place] [address] Nov, [facility] [place] [facility] [address] [id number] [place] [address] Nov, [facility] [place] [facility] [address] [id number] [place] [address] Oct, [facility] [place] [facility] [address] [id number] [place] [address] Sep, [facility] [place] [facility] [address] [id number] [place] [address] August, [facility] [place] [facility] [address] [id number] [place] [address] 30 Jul, 2012 [facility] [place] [facility] [address] [id number] [place] [address] 14 Jul, 2012 [facility] [place] [facility] [address] [id number] [place] [address] Jul, [facility] [place] [facility] [address] [id number] [place] [address] Jul, [facility] [place] [facility] [address] [id number] [place] [address] Jul, [facility] [place] [facility] [address] [id number] [place] [address] Jun, [facility] [place] [facility] [address] [id number] [place] [address] May, [facility] [place] [facility] [address] [id number] [place] [address] Apr, [facility] [place] [facility] [address] [id number] [place] [address] Mar, [facility] [place] [facility] [address] [id number] [place] [address] Mar, [facility] [place] [facility] [address] [id number] [place] [address] Mar, [facility] [place] [facility] [address] [id number] [place] [address] Jan, [facility] [place] [facility] [address] [id number] [place] [address] Jan, [facility] [place] [facility] [address] [id number] [place] [address] Jan, [facility] [place] [facility] [address] [id number] [place] [address] Jan, [facility] [place] [facility] [address] [id number] [place] [address] Dec, [facility] [place] [facility] [address] [id number] [place] [address] Dec, [facility] [place] [facility] [address] [id number] [place] [address] Nov, [facility] [place] [facility] [address] [id number] [place] [address] Nov, [facility] [place] [facility] [address] [id number] [place] [address] Nov, [facility] [place] [facility] [address] [id number] [place] [address] Nov, [facility] [address] [id number] [place] [address] Nov, [facility] [place] [facility] [address] [id number] [place] [address] Oct, [facility] [place] [facility] [address] [id number] [place] [address] Oct, [facility] [place] [facility] [address] [id number] [place] [address] Oct, [facility] [place] [facility] [address] [id number] [place] [address] Sep, [facility] [place] [facility] [address] [id number] [place] [address] August, [facility] [address] [id number] [place] [address] Jul, [facility] [place] [facility] [address] [id number] [place] [address] Jul, [facility] [place] [facility] [address] [id number] [place] [address] Jul, [facility] [place] [facility] [address] [id number] [place] [address] Jul, [facility] [place] [facility] [address] [id number] [place] [address] 29 Jun, 2011 [facility] [place] [facility] [address] [id number] [place] [address] 28 Jun, 2011 [facility] [place] [facility] [address] [id number] [place] [address] Jun, [facility] [place] [facility] [address] [id number] [place] [address] Jun, [facility] [place] [facility] [address] [id number] [place] [address] 15 Jun, 2011 [facility] [place] [facility] [address] [id number] [place] [address] 28 May, 2011 [facility] [place] [facility] [address] [id number] [place] [address] May, [facility] [place] [facility] [address] [id number] [place] [address] May, [facility] [place] [facility] [address] [id number] [place] [address] May, [facility] [place] [facility] [address] [id number] [place] [address] Apr, [facility] [place] [facility] [address] [id number] [place] [address] Mar, [facility] [place] [facility] [address] [id number] [place] [address] Mar, [facility] [place] [facility] [address] [id number] [place] [address] Jun, [facility] [place] [facility] [address] [id number] [place] [address] Feb, [facility] [place] [facility] [address] [id number] [place] [address] Jan, [facility] [place] [facility] [address] [id number] [place] [address] Jan, [facility] [place] [facility] [address] [id number] [place] [address] Jan, [facility] [place] [facility] [address] [id number] [place] [address] Dec, [facility] [place] [facility] [address] [id number] [place] [address] May, [facility] [place] [facility] [address] [id number] [place] [address] Feb, [facility] [place] [facility] [address] [id number] [place] [address] Feb, [facility] [address] [facility] [id number] [place] [address] Feb, IMMUNIZATIONS No Known Immunizations SOCIAL HISTORY Never Assessed REASON FOR [place]IS[place] [place] VITAL SIGNS MEDICATIONS Unknown [...]
--- OUTSIDE RECORDS SUMMARY | 2018-11-21 21:54 | XMS REPORT ---
Author Author YOVANI GILLILAND [facility] Address [address] [place] [address] Care Team Providers Care Dessert Cup Machine Feeder Name Role Phone YOVANI GILLILAND Unavailable PROBLEMS Type Condition ICD9-CM Code OHG23-YQ Code Onset Dates Condition Status SNOMED Code Problem Generalized anxiety disorder F41.1 Active 60679823 Problem Hypercholesterolemia E78.00 Active 47226496 Problem Body mass index (BMI) of 32.0-32.9 in adult Z68.32 Active 157555804 Problem Chronic obstructive pulmonary disease, unspecified COPD type J44.9 Active 36036531 Problem Insomnia G47.00 Active 183458387 Problem Other depression F32.89 Active 135740671 Problem Facet arthropathy, lumbar M46.96 Active 961992351 Problem Lumbar spondylosis M47.816 Active 035040505 Problem Lumbago with sciatica, unspecified side M54.40 Active 04670806 Problem Other obesity due to excess calories E66.09 Active 812499450 Problem COPD exacerbation J44.1 Active 995395655 Problem Other chronic pain G89.29 Active 81555355 Problem Restless legs G25.81 Active 73735172 Problem Constipation due to outlet dysfunction K59.02 Active 01631432 Problem COPD (chronic obstructive pulmonary disease) J44.9 Active 90723540 Problem Depression F32.9 Active 46970013 Problem Anxiety F41.9 Active 36506775 Problem Gastroesophageal reflux disease with esophagitis K21.0 Active 667864385 Problem Essential hypertension I10 Active 40560946 Problem Severe episode of recurrent major depressive disorder, without psychotic features F33.2 Active 49924319 Problem Major depressive disorder, recurrent episode, moderate with anxious distress F33.1 Active 313906185 Problem Psychophysiological insomnia F51.04 Active [id number] ALLERGIES No Known Allergies ENCOUNTERS Encounter Location Date Diagnosis [facility] [address] [facility] [id number] [address] Mar, [facility] [id number] [place] [address] Mar, [facility] [id number] [place] [address] Mar, COPD exacerbation J44.1 [place] [id number] [place] [address] 05 Mar, 2018 COPD (chronic obstructive pulmonary disease) J44.9 [place] [id number] [place] [address] Feb, Severe episode of recurrent major depressive disorder, without psychotic features F33.2 ; Generalized anxiety disorder F41.1 and Psychophysiological insomnia F51.04 [place] [id number] [place] [address] 13 Dec, 2017 Fever, unspecified fever cause R50.9 ; Nausea and vomiting, intractability of vomiting not specified, unspecified vomiting type R11.2 ; Wheezing on auscultation R06.2 ; COPD (chronic obstructive pulmonary disease) J44.9 and Acute maxillary sinusitis, recurrence not specified J01.00 [place] [id number] [place] [address] 07 Dec, 2017 Edema of lower extremity R60.0 [place] [id number] [place] [address] Dec, [place] [id number] [place] [address] Nov, Essential hypertension I10 [place] [id number] [place] [address] Nov, [place] [id number] [place] [address] Nov, Severe episode of recurrent major depressive disorder, without psychotic features F33.2 ; Generalized anxiety disorder F41.1 and Psychophysiological insomnia F51.04 [place] [id number] [place] [address] Nov, COPD (chronic obstructive pulmonary disease) J44.9 ; Essential hypertension I10 ; Lumbar spondylosis M47.816 ; Generalized anxiety disorder F41.1 ; Rash and nonspecific skin eruption R21 ; Pain in joints of right hand M25.541 ; Pain in joints of left hand M25.542 and Hypercholesterolemia E78.00 [place] [id number] [place] [address] Nov, Rash and nonspecific skin eruption R21 and Non-intractable vomiting with nausea, unspecified vomiting type R11.2 [place] [id number] [place] [address] Oct, [place] [id number] [place] [address] Sep, Pain aggravated by standing R52 [id number] [place] [address] Sep, Other depression F32.89 [place] [id number] [place] [address] Sep, Chronic obstructive pulmonary disease, unspecified COPD type J44.9 ; Pain aggravated by standing R52 ; Other depression F32.89 ; Major depressive disorder, recurrent episode, moderate with anxious distress F33.1 ; Restless legs G25.81 ; Insomnia G47.00 ; Gastroesophageal reflux disease with esophagitis K21.0 ; Essential hypertension I10 ; Generalized anxiety disorder F41.1 and Hypercholesterolemia E78.00 [place] [id number] [place] [address] Jul, Fever, unspecified fever cause R50.9 and Cough R05 [address] [id number] [place] [address] Jul, [place] [id number] [place] [address] Jul, Gastroesophageal reflux disease with esophagitis K21.[id number] [place] [address] Jul, [place] [address] [address] Jun, COPD (chronic obstructive pulmonary disease) J44.9 ; Restless legs G25.81 ; Insomnia G47.00 ; Essential hypertension I10 ; Major depressive disorder, recurrent episode, moderate with anxious distress F33.1 ; Gastroesophageal reflux disease with esophagitis K21.0 ; Constipation due to outlet dysfunction K59.02 ; Hypercholesterolemia E78.00 ; Other chronic pain G89.29 and Generalized abdominal pain R10.84 [place] [address] [address] Jun, [address] [address] Jun, Acute recurrent sinusitis, unspecified location J01.91 and COPD exacerbation J44.[address] [address] Jun, Lumbago with sciatica, unspecified side M54.40 [place] [address] [address] May, [place] [id number] [place] [address] May, Severe episode of recurrent major depressive disorder, without psychotic features F33.2 [id number] [place] [address] Apr, COPD (chronic obstructive pulmonary disease) J44.9 [...] index (BMI) of 32.0-32.9 in adult Z68.32 [place] [id number] [place] [address] Apr, Severe episode of recurrent major depressive disorder, without psychotic features F33.2 [place] [id number] [place] [address] Feb, Severe episode of recurrent major depressive disorder, without psychotic features F33.2 and Restless legs G25.81 [place] [id number] [place] [address] Feb, Severe episode of recurrent major depressive disorder, without psychotic features F33.2 ; Generalized anxiety disorder F41.1 and Psychophysiological insomnia F51.04 [place] [id number] [place] [address] Dec, Severe episode of recurrent major depressive disorder, without psychotic features F33.2 ; Generalized anxiety disorder F41.1 and Psychophysiological insomnia F51.04 [place] [id number] [place] [address] Nov, Severe episode of recurrent major depressive disorder, without psychotic features F33.2 ; Generalized anxiety disorder F41.1 and Psychophysiological insomnia F51.04 [place] [id number] [place] [address] Nov, [place] [address] [address] Nov, Depression F32.9 [place] [id number] [place] [address] Nov, Depression F32.9 ; Insomnia G47.00 and Anxiety F41.9 [place] [address] [address] August, COPD (chronic obstructive pulmonary disease) J44.9 ; Depression F32.9 ; Anxiety F41.9 ; Major depressive disorder, recurrent episode, moderate with anxious distress F33.1 ; Insomnia G47.00 ; Restless legs G25.81 ; Essential hypertension I10 and Pure hypercholesterolemia E78.00 [facility] [id number] [place] [address] August, Acute intractable tension-type headache G44.201 [facility] [id number] [place] [address] Jul, Left wrist pain M25.532 and Strain of left wrist, initial encounter S66.912A [facility] [id number] [place] [address] 14 May, 2016 Gastroesophageal reflux disease with esophagitis K21.0 and Anxiety F41.9 [place] [id number] [place] [address] 13 May, 2016 Major depressive disorder, recurrent episode, moderate with anxious distress F33.1 ; COPD (chronic obstructive pulmonary disease) J44.9 ; Restless legs G25.81 ; Insomnia G47.00 ; Essential hypertension I10 ; Anxiety F41.9 ; Constipation due to outlet dysfunction K59.02 ; Torsion of intestine, bowel or colon K56.2 ; Hypercholesterolemia E78.00 and Gastroesophageal reflux disease with esophagitis K21.0 [facility] [id number] [place] [address] 07 Feb, 2016 [place] [id number] [place] [address] 20 Dec, 2015 Essential hypertension I10 ; Depression F32.9 ; Anxiety F41.9 ; Constipation due to outlet dysfunction K59.02 ; Torsion of intestine, bowel or colon K56.2 ; COPD (chronic obstructive pulmonary disease) J44.9 ; Insomnia G47.00 ; Restless legs G25.81 and Gastroesophageal reflux disease with esophagitis K21.0 [place] [id number] [place] [address] 08 Dec, 2015 Essential hypertension I10 ; Major depressive disorder, recurrent episode, moderate with anxious distress F33.1 ; COPD (chronic obstructive pulmonary disease) J44.9 ; Restless legs G25.81 ; Insomnia G47.00 ; Constipation due to outlet dysfunction K59.02 and Gastroesophageal reflux disease without esophagitis K21.9 [place] [id number] [place] [address] 07 Dec, 2015 Major depressive disorder, recurrent episode, moderate with anxious distress F33.1 [place] [id number] [place] [address] 28 Sep, 2015 [place] [address] [address] 23 Sep, 2015 Nausea R11.0 [place] [address] [address] 15 Sep, 2015 Lower abdominal pain R10.30 ; COPD (chronic obstructive pulmonary disease) J44.9 ; Restless legs G25.81 ; Essential hypertension I10 ; Depression F32.9 ; Other chronic pain G89.29 ; Lumbago with sciatica, unspecified side M54.40 and Primary insomnia F51.[address] [address] August, [place] [id number] [place] [address] August, COPD (chronic obstructive pulmonary disease) J44.9 ; Insomnia G47.00 ; Depression F32.9 and Constipation due to outlet dysfunction K59.02 [place] [id number] [place] [address] August, [place] [id number] [place] [address] August, [place] [id number] [place] [address] August, Nausea & vomiting R11.2 [place] [id number] [place] [address] Jun, [place] [id number] [place] [address] Jun, Unspecified abdominal pain R10.9 ; Depression, major, recurrent, moderate 296.32 ; COPD (chronic obstructive pulmonary disease) J44.9 ; Restless legs G25.81 ; Insomnia G47.00 ; Intestinal abscess K63.0 ; HTN (hypertension) I10 and Hypercholesteremia E78.0 [place] [id number] [place] [address] Jun, Intestinal abscess K63.0 [place] [address] [address] May, [place] [address] [address] May, [address] [address] May, Unspecified abdominal pain R10.[address] [address] May, Depression, major, recurrent, moderate 296.32 ; COPD (chronic obstructive pulmonary disease) J44.9 ; Restless legs G25.81 ; Insomnia G47.00 ; Depression F32.9 ; HTN (hypertension) I10 and Hypercholesterolemia E78.0 [place] [address] [address] Apr, [address] [address] Mar, Cellulitis L03.[address] [address] Feb, Recurrent major depression-severe F33.[address] [address] Feb, Hyperlipemia E78.5 and High blood pressure I10 [address] [address] Feb, COPD (chronic obstructive pulmonary disease) J44.9 ; Restless legs G25.81 ; Insomnia G47.00 ; Depression F32.9 and HTN (hypertension) I10 [facility] [id number] [place] [address] Jan, [facility] [id number] [place] [address] Jan, Generalized anxiety disorder F41.1 and Recurrent major depression- severe F33.2 [facility] [address] [address] Jan, Bronchitis J40 [facility] [id number] [place] [address] Jan, Shoulder pain, right M25.511 and Low back pain M54.5 [facility] [id number] [place] [address] Jan, [facility] [address] [address] Oct, [facility] [id number] [place] [address] Oct, Generalized anxiety disorder 300.02 and Depression, major, severe recurrence 296.33 [facility] [id number] [place] [address] Oct, [facility] [id number] [place] [address] Oct, Depression, major, recurrent, moderate 296.32 [facility] [id number] [place] [address] August, [facility] [id number] [place] [address] Jul, [facility] [id number] [place] [address] Jul, [facility] [id number] [place] [address] Jun, [facility] [place] [facility] [address] [id number] [place] [address] Jun, [facility] [place] [facility] [address] [id number] [place] [address] May, 2014 [facility] [place] [facility] [address] [id number] [place] [address] May, 2014 [facility] [place] [facility] [address] [id number] [place] [address] May, 2014 [facility] [place] [facility] [address] [id number] [place] [address] May, 2014 [facility] [place] [facility] [address] [id number] [place] [address] May, 2014 [facility] [place] [facility] [address] [facility] [id number] [place] [address] May, 2014 [facility] [place] [facility] [address] [id number] [place] [address] May, 2014 [facility] [place] [facility] [address] [id number] [place] [address] May, 2014 [facility] [place] [facility] [address] [facility] [id number] [place] [address] May, 2014 [facility] [place] [facility] [address] [facility] [id number] [place] [address] May, 2014 [facility] [place] [facility] [address] [facility] [id number] [address] May, 2014 [facility] [place] [facility] [address] [facility] [id number] [place] [address] May, 2014 [facility] [place] [facility] [address] [id number] [place] [address] Apr, [facility] [place] [facility] [address] [facility] [id number] [place] [address] Apr, [facility] [place] [facility] [address] [id number] [place] [address] Apr, [facility] [address] [id number] [place] [address] Apr, [facility] [place] [facility] [address] [id number] [place] [address] Apr, [facility] [place] [facility] [address] [id number] [place] [address] Apr, [facility] [place] [facility] [address] [id number] [place] [address] Apr, [facility] [place] [facility] [address] [id number] [place] [address] Apr, [facility] [place] [facility] [address] [id number] [place] [address] Apr, [facility] [place] [facility] [address] [id number] [place] [address] Apr, [facility] [place] [facility] [address] [id number] [place] [address] Mar, [facility] [place] [facility] [address] [id number] [place] [address] Mar, [facility] [place] [facility] [address] [id number] [place] [address] Mar, [facility] [place] [facility] [address] [id number] [place] [address] Mar, [facility] [place] [facility] [address] [id number] [place] [address] Mar, [facility] [place] [facility] [address] [id number] [place] [address] Feb, [facility] [place] [facility] [address] [id number] [place] [address] Feb, [facility] [place] [facility] [address] [id number] [place] [address] Dec, [facility] [place] [facility] [address] [id number] [place] [address] Dec, [facility] [place] [facility] [address] [id number] [place] [address] Nov, [facility] [place] [facility] [address] [id number] [place] [address] Nov, [facility] [place] [facility] [address] [id number] [place] [address] Nov, [facility] [place] [facility] [address] [id number] [place] [address] Nov, [facility] [place] [facility] [address] [id number] [place] [address] Oct, [facility] [place] [facility] [address] [id number] [place] [address] Oct, [facility] [place] [facility] [address] [id number] [place] [address] Sep, [facility] [place] [facility] [address] [id number] [place] [address] Sep, [facility] [place] [facility] [address] [id number] [place] [address] August, [facility] [place] [facility] [address] [id number] [place] [address] August, [facility] [place] [facility] [address] [id number] [place] [address] August, [facility] [place] [facility] [address] [id number] [place] [address] August, [facility] [place] [facility] [address] [id number] [place] [address] Jul, [facility] [place] [facility] [address] [id number] [place] [address] Jul, [facility] [place] [facility] [address] [id number] [place] [address] Jun, [facility] [place] [facility] [address] [id number] [place] [address] Jun, [facility] [place] [facility] [address] [id number] [place] [address] May, [facility] [place] [facility] [address] [id number] [place] [address] May, [facility] [place] [facility] [address] [id number] [place] [address] May, [facility] [place] [facility] [address] [id number] [place] [address] May, [facility] [place] [facility] [address] [id number] [place] [address] May, [facility] [place] [facility] [address] [id number] [place] [address] May, [facility] [place] [facility] [address] [id number] [place] [address] May, [facility] [place] [facility] [address] [id number] [place] [address] Apr, [facility] [place] [facility] [address] [facility] [id number] [place] [address] Apr, [facility] [place] [facility] [address] [id number] [place] [address] Apr, [facility] [place] [facility] [address] [id number] [place] [address] Apr, [facility] [place] [facility] [address] [id number] [place] [address] Apr, [facility] [place] [facility] [address] [id number] [place] [address] Apr, [facility] [place] [facility] [address] [id number] [place] [address] Apr, [facility] [place] [facility] [address] [id number] [place] [address] Apr, [facility] [place] [facility] [address] [id number] [place] [address] Apr, [facility] [place] [facility] [address] [id number] [place] [address] Apr, [facility] [place] [facility] [address] [id number] [place] [address] Mar, [facility] [place] [facility] [address] [id number] [place] [address] Mar, [facility] [place] [facility] [address] [id number] [place] [address] Mar, [facility] [place] [facility] [address] [id number] [place] [address] Mar, [facility] [place] [facility] [address] [id number] [place] [address] Feb, [facility] [place] [facility] [address] [id number] [place] [address] Feb, [facility] [place] [facility] [address] [id number] [place] [address] Feb, [facility] [place] [facility] [address] [id number] [place] [address] Feb, [facility] [place] [facility] [address] [id number] [place] [address] Feb, [facility] [place] [facility] [address] [id number] [place] [address] 16 Feb, 2013 [facility] [place] [facility] [address] [id number] [place] [address] Jan, [facility] [place] [facility] [address] [id number] [place] [address] 10 Jan, 2013 [facility] [place] [facility] [address] [id number] [place] [address] 05 Dec, 2012 [facility] [address] [id number] [place] [address] Dec, [facility] [place] [facility] [address] [id number] [place] [address] Nov, [facility] [place] [facility] [address] [id number] [place] [address] Nov, [facility] [place] [facility] [address] [id number] [place] [address] Oct, [facility] [place] [facility] [address] [id number] [place] [address] Sep, [facility] [place] [facility] [address] [id number] [place] [address] August, [facility] [place] [facility] [address] [id number] [place] [address] Jul, [facility] [place] [facility] [address] [id number] [place] [address] Jul, [facility] [place] [facility] [address] [id number] [place] [address] Jul, [facility] [place] [facility] [address] [id number] [place] [address] Jul, [facility] [place] [facility] [address] [id number] [place] [address] Jul, [facility] [place] [facility] [address] [id number] [address] Jun, [facility] [place] [facility] [address] [id number] [place] [address] May, [facility] [place] [facility] [address] [id number] [place] [address] Apr, [facility] [place] [facility] [address] [id number] [place] [address] Mar, [facility] [place] [facility] [address] [id number] [place] [address] Mar, [facility] [address] [id number] [place] [address] Mar, [facility] [place] [facility] [address] [id number] [place] [address] Jan, [facility] [address] [id number] [place] [address] Jan, [facility] [place] [facility] [address] [id number] [place] [address] Jan, [facility] [address] [id number] [place] [address] Jan, [facility] [address] [id number] [place] [address] Dec, [facility] [place] [facility] [address] [id number] [place] [address] Dec, [facility] [address] [id number] [place] [address] Nov, [facility] [place] [facility] [address] [id number] [place] [address] Nov, [facility] [facility] [address] [id number] [place] [address] Nov, [facility] [place] [facility] [address] [id number] [place] [address] Nov, [facility] [place] [facility] [address] [id number] [place] [address] Nov, [facility] [place] [facility] [address] [id number] [place] [address] Oct, [facility] [place] [facility] [address] [id number] [place] [address] Oct, [facility] [place] [facility] [address] [id number] [place] [address] Oct, [facility] [address] [id number] [place] [address] Sep, [facility] [place] [facility] [address] [id number] [place] [address] August, [facility] [place] [facility] [address] [id number] [place] [address] Jul, [facility] [place] [facility] [address] [id number] [place] [address] Jul, [facility] [place] [facility] [address] [id number] [place] [address] Jul, [facility] [place] [facility] [address] [id number] [place] [address] Jul, [facility] [place] [facility] [address] [id number] [place] [address] Jun, [facility] [place] [facility] [address] [id number] [place] [address] Jun, [facility] [place] [facility] [address] [id number] [place] [address] Jun, [facility] [place] [facility] [address] [id number] [place] [address] Jun, [facility] [place] [facility] [address] [id number] [place] [address] Jun, [facility] [place] [facility] [address] [id number] [place] [address] May, [facility] [place] [facility] [address] [id number] [place] [address] May, [facility] [place] [facility] [address] [id number] [place] [address] May, [facility] [place] [facility] [address] [id number] [place] [address] May, [facility] [place] [facility] [id number] [address] Apr, [facility] [id number] [address] Mar, [facility] [id number] [address] Mar, [facility] [id number] [address] Jun, [facility] [id number] [address] Feb, [facility] [id number] [place] [address] Jan, [facility] [id number] [place] [address] Jan, [facility] [id number] [place] [address] Jan, [facility] [id number] [address] Dec, [facility] [id number] [address] May, [facility] [id number] [address] Feb, [facility] [id number] [address] Feb, [facility] [id number] [address] Feb, IMMUNIZATIONS No Known Immunizations SOCIAL HISTORY Never Assessed REASON FOR VISIT pt c/o cough and congestion, pt states that chest congestion started last thursd ay and is getting worse. She states that she feels like its hard to breathe- Padma helms MA, has been doing her nebulizer twice a day. FADY Vallejo, need refill on albuterol for nebulizer- FADY Patino PLAN OF CARE Activity Details Follow Up prn. if not improving with PCP or reg follow up Reason: VITAL SIGNS Height 62 in 2018-03-29 Weight 180.5 lbs 2018-03-29 Temperature 98.1 degrees Fahrenheit 2018-03-29 Heart Rate 106 bpm 2018-03-29 Respiratory Rate 22 2018-03-29 Oximetry on room air:96 % 2018-03-29 BMI 33.01 kg/m2 2018-03-29 Blood pressure systolic 168 mmHg 2018-03-29 Blood pressure diastolic 100 mmHg 2018-03-29 MEDICATIONS Medication Instructions Dosage Frequency Start Date End Date Duration Status PredniSONE 20 MG Orally Once a day 2 tablet 24h Mar, 5 days Active MiraLax 17 gm/dose Orally Once a day prn 1 packet mixed with 8 ounces of fluid May, Apr, 12 months Active Klonopin 1 MG Orally Once a day as needed 1 tablet Nov, 30 days Active Cymbalta 60 MG Orally twice a day 1 capsule 12h Active Albuterol Sulfate 2.5 mg /3 mL (0.083 %) Inhalation every 4-6 hours as needed 1 Each by Inhalation route every 4 hours for cough and wheeze PRN for wheezing or cough; Jun, Active Gabapentin 300 MG Orally Three times a day 1 capsule 8h May, 30 days Active Omeprazole 20 mg Orally Once a day 1 capsule 24h 90 Active Doxycycline Hyclate 100 MG Orally 2 times a day 1 capsule 12h Mar, 10 days Active Dulera 100-5 mcg/actuation 2 puffs by Inhalation route 2 times per day 12h Jul, Active Losartan Potassium-HCTZ 50-12.5 MG Orally Once a day 2 tablets 24h Nov, 90 days Active Atorvastatin Calcium 10 mg Orally Once a day 1 tablet 24h May, Active Remeron 45 MG Orally Once a day at bedtime 1 tablet 30 day(s) Active Melatonin 3 MG Orally Once a day 1 tablet at bedtime as needed with food 24h Active Amlodipine Besylate 5 mg Orally Once a day 1 tablet 24h Nov, 30 day(s) Active RESULTS No Results PROCEDURES [...]
--- OUTSIDE RECORDS SUMMARY | 2018-11-21 21:54 | XMS REPORT ---
Author Author YOVANI GILLILAND [facility] Address [address] [place] [address] Care Team Providers Care Bell Maker Name Role Phone YOVANI GILLILAND Unavailable PROBLEMS Type Condition ICD9-CM Code HML32-KT Code Onset Dates Condition Status SNOMED Code Problem Generalized anxiety disorder F41.1 Active 05407329 Problem Hypercholesterolemia E78.00 Active 52782943 Problem Body mass index (BMI) of 32.0-32.9 in adult Z68.32 Active 549621107 Problem Chronic obstructive pulmonary disease, unspecified COPD type J44.9 Active 73726929 Problem Insomnia G47.00 Active 944257068 Problem Other depression F32.89 Active 514768369 Problem Facet arthropathy, lumbar M46.96 Active 669860901 Problem Lumbar spondylosis M47.816 Active 228693247 Problem Lumbago with sciatica, unspecified side M54.40 Active 81490349 Problem Other obesity due to excess calories E66.09 Active 291435732 Problem COPD exacerbation J44.1 Active 762752002 Problem Other chronic pain G89.29 Active 43603132 Problem Restless legs G25.81 Active 00406279 Problem Constipation due to outlet dysfunction K59.02 Active 40261986 Problem COPD (chronic obstructive pulmonary disease) J44.9 Active 97012161 Problem Depression F32.9 Active 70174754 Problem Anxiety F41.9 Active 10267013 Problem Gastroesophageal reflux disease with esophagitis K21.0 Active 637636401 Problem Essential hypertension I10 Active 62135666 Problem Severe episode of recurrent major depressive disorder, without psychotic features F33.2 Active 71392509 Problem Major depressive disorder, recurrent episode, moderate with anxious distress F33.1 Active 606979763 Problem Psychophysiological insomnia F51.04 Active 857062560 ALLERGIES No Information ENCOUNTERS Encounter Location Date Diagnosis [facility] [address] [facility] [id number] [address] Mar, [facility] [id number] [place] [address] Mar, [facility] [id number] [place] [address] Mar, COPD (chronic obstructive pulmonary disease) J44.9 [place] [id number] [place] [address] Feb, Severe episode of recurrent major depressive disorder, without psychotic features F33.2 ; Generalized anxiety disorder F41.1 and Psychophysiological insomnia F51.04 [place] [id number] [place] [address] 13 Dec, 2017 Fever, unspecified fever cause R50.9 ; Nausea and vomiting, intractability of vomiting not specified, unspecified vomiting type R11.2 ; Wheezing on auscultation R06.2 ; COPD (chronic obstructive pulmonary disease) J44.9 and Acute maxillary sinusitis, recurrence not specified J01.00 [place] [id number] [place] [address] 07 Dec, 2017 Edema of lower extremity R60.0 [place] [id number] [place] [address] Dec, [place] [id number] [place] [address] Nov, Essential hypertension I10 [place] [id number] [place] [address] Nov, [facility] [id number] [place] [address] Nov, Severe episode of recurrent major depressive disorder, without psychotic features F33.2 ; Generalized anxiety disorder F41.1 and Psychophysiological insomnia F51.04 [facility] [id number] [place] [address] Nov, COPD (chronic obstructive pulmonary disease) J44.9 ; Essential hypertension I10 ; Lumbar spondylosis M47.816 ; Generalized anxiety disorder F41.1 ; Rash and nonspecific skin eruption R21 ; Pain in joints of right hand M25.541 ; Pain in joints of left hand M25.542 and Hypercholesterolemia E78.00 [place] [id number] [place] [address] Nov, Rash and nonspecific skin eruption R21 and Non-intractable vomiting with nausea, unspecified vomiting type R11.2 [place] [address] [address] Oct, [address] [address] Sep, Pain aggravated by standing R52 [address] [address] Sep, Other depression F32.[address] [address] Sep, Chronic obstructive pulmonary disease, unspecified COPD type J44.9 ; Pain aggravated by standing R52 ; Other depression F32.89 ; Major depressive disorder, recurrent episode, moderate with anxious distress F33.1 ; Restless legs G25.81 ; Insomnia G47.00 ; Gastroesophageal reflux disease with esophagitis K21.0 ; Essential hypertension I10 ; Generalized anxiety disorder F41.1 and Hypercholesterolemia E78.00 [place] [id number] [place] [address] Jul, Fever, unspecified fever cause R50.9 and Cough R05 [place] [id number] [place] [address] Jul, [place] [address] [address] Jul, Gastroesophageal reflux disease with esophagitis K21.0 [place] [address] [address] Jul, [place] [address] [place] [address] Jun, COPD (chronic obstructive pulmonary disease) J44.9 ; Restless legs G25.81 ; Insomnia G47.00 ; Essential hypertension I10 ; Major depressive disorder, recurrent episode, moderate with anxious distress F33.1 ; Gastroesophageal reflux disease with esophagitis K21.0 ; Constipation due to outlet dysfunction K59.02 ; Hypercholesterolemia E78.00 ; Other chronic pain G89.29 and Generalized abdominal pain R10.84 [place] [address] [address] Jun, [place] [address] [address] Jun, Acute recurrent sinusitis, unspecified location J01.91 and COPD exacerbation J44.1 [place] [address] [address] Jun, Lumbago with sciatica, unspecified side M54.40 [place] [address] [address] May, [place] [address] [address] May, Severe episode of recurrent major depressive disorder, without psychotic features F33.2 [place] [id number] [place] [address] Apr, COPD (chronic obstructive pulmonary disease) J44.9 [...] index (BMI) of 32.0-32.9 in adult Z68.32 [place] [id number] [place] [address] Apr, Severe episode of recurrent major depressive disorder, without psychotic features F33.2 [place] [id number] [place] [address] Feb, Severe episode of recurrent major depressive disorder, without psychotic features F33.2 and Restless legs G25.81 [facility] [address] [id number] [address] Feb, Severe episode of recurrent major depressive disorder, without psychotic features F33.2 ; Generalized anxiety disorder F41.1 and Psychophysiological insomnia F51.04 [place] [id number] [place] [address] Dec, Severe episode of recurrent major depressive disorder, without psychotic features F33.2 ; Generalized anxiety disorder F41.1 and Psychophysiological insomnia F51.04 [place] [id number] [place] [address] Nov, Severe episode of recurrent major depressive disorder, without psychotic features F33.2 ; Generalized anxiety disorder F41.1 and Psychophysiological insomnia F51.04 [place] [id number] [place] [address] Nov, [place] [id number] [place] [address] Nov, Depression F32.9 [place] [id number] [place] [address] Nov, Depression F32.9 ; Insomnia G47.00 and Anxiety F41.9 [place] [id number] [place] [address] August, COPD (chronic obstructive pulmonary disease) J44.9 ; Depression F32.9 ; Anxiety F41.9 ; Major depressive disorder, recurrent episode, moderate with anxious distress F33.1 ; Insomnia G47.00 ; Restless legs G25.81 ; Essential hypertension I10 and Pure hypercholesterolemia E78.00 [place] [address] [place] [address] 22 May, 2017 Acute intractable tension-type headache G44.201 [facility] [address] [place] [address] Jul, Left wrist pain M25.532 and Strain of left wrist, initial encounter S66.912A [facility] [address] [address] 14 May, 2016 Gastroesophageal reflux disease with esophagitis K21.0 and Anxiety F41.9 [facility] [id number] [place] [address] 13 May, 2016 Major depressive disorder, recurrent episode, moderate with anxious distress F33.1 ; COPD (chronic obstructive pulmonary disease) J44.9 ; Restless legs G25.81 ; Insomnia G47.00 ; Essential hypertension I10 ; Anxiety F41.9 ; Constipation due to outlet dysfunction K59.02 ; Torsion of intestine, bowel or colon K56.2 ; Hypercholesterolemia E78.00 and Gastroesophageal reflux disease with esophagitis K21.0 [facility] [address] [place] [address] 07 Feb, 2016 [place] [id number] [place] [address] 20 Dec, 2015 Essential hypertension I10 ; Depression F32.9 ; Anxiety F41.9 ; Constipation due to outlet dysfunction K59.02 ; Torsion of intestine, bowel or colon K56.2 ; COPD (chronic obstructive pulmonary disease) J44.9 ; Insomnia G47.00 ; Restless legs G25.81 and Gastroesophageal reflux disease with esophagitis K21.0 [place] [address] [place] [address] 08 Dec, 2015 Essential hypertension I10 ; Major depressive disorder, recurrent episode, moderate with anxious distress F33.1 ; COPD (chronic obstructive pulmonary disease) J44.9 ; Restless legs G25.81 ; Insomnia G47.00 ; Constipation due to outlet dysfunction K59.02 and Gastroesophageal reflux disease without esophagitis K21.9 [place] [id number] [place] [address] Dec, Major depressive disorder, recurrent episode, moderate with anxious distress F33.1 [place] [address] [address] Sep, [place] [address] [address] Sep, Nausea R11.0 [place] [address] [address] Sep, Lower abdominal pain R10.30 ; COPD (chronic obstructive pulmonary disease) J44.9 ; Restless legs G25.81 ; Essential hypertension I10 ; Depression F32.9 ; Other chronic pain G89.29 ; Lumbago with sciatica, unspecified side M54.40 and Primary insomnia F51.01 [place] [address] [address] August, [place] [address] [address] August, COPD (chronic obstructive pulmonary disease) J44.9 ; Insomnia G47.00 ; Depression F32.9 and Constipation due to outlet dysfunction K59.02 [place] [address] [address] August, [place] [address] [address] August, [place] [address] [address] August, Nausea & vomiting R11.2 [place] [address] [address] Jun, [address] [address] Jun, Unspecified abdominal pain R10.9 ; Depression, major, recurrent, moderate 296.32 ; COPD (chronic obstructive pulmonary disease) J44.9 ; Restless legs G25.81 ; Insomnia G47.00 ; Intestinal abscess K63.0 ; HTN (hypertension) I10 and Hypercholesteremia E78.0 [place] [id number] [place] [address] Jun, Intestinal abscess K63.0 [place] [address] [address] May, [place] [address] [address] May, [place] [address] [address] May, Unspecified abdominal pain R10.9 [place] [address] [address] May, Depression, major, recurrent, moderate 296.32 ; COPD (chronic obstructive pulmonary disease) J44.9 ; Restless legs G25.81 ; Insomnia G47.00 ; Depression F32.9 ; HTN (hypertension) I10 and Hypercholesterolemia E78.0 [place] [address] [address] Apr, [place] [address] [address] Mar, Cellulitis L03.[address] [address] Feb, Recurrent major depression-severe F33.2 [place] [address] [address] Feb, Hyperlipemia E78.5 and High blood pressure I10 [place] [address] [address] 05 Feb, 2015 COPD (chronic obstructive pulmonary disease) J44.9 ; Restless legs G25.81 ; Insomnia G47.00 ; Depression F32.9 and HTN (hypertension) I10 [place] [address] [address] Jan, [facility] [address], [place] [address] Jan, Generalized anxiety disorder F41.1 and Recurrent major depression- severe F33.2 [facility] [id number] [place] [address] Jan, Bronchitis J40 [facility] [id number] [place] [address] Jan, Shoulder pain, right M25.511 and Low back pain M54.5 [facility] [id number] [place] [address] Jan, [facility] [id number] [place] [address] Oct, [facility] [id number] [place] [address] Oct, Generalized anxiety disorder 300.02 and Depression, major, severe recurrence 296.33 [facility] [id number] [place] [address] Oct, [facility] [id number] [place] [address] Oct, Depression, major, recurrent, moderate 296.32 [facility] [address] [address] August, [facility] [id number] [place] [address] Jul, [facility] [id number] [address] Jul, [facility] [id number] [place] [address] Jun, [facility] [address] [address] Jun, [facility] [id number] [place] [address] May, 2014 [facility] [place] [facility] [address] [id number] [place] [address] May, 2014 [facility] [place] [facility] [address] [id number] [place] [address] May, 2014 [facility] [place] [facility] [address] [id number] [place] [address] May, 2014 [facility] [place] [facility] [address] [id number] [place] [address] May, 2014 [facility] [place] [facility] [address] [id number] [place] [address] May, 2014 [facility] [place] [facility] [address] [facility] [id number] [place] [address] May, 2014 [facility] [place] [facility] [address] [facility] [id number] [place] [address] May, 2014 [facility] [place] [facility] [address] [id number] [place] [address] May, 2014 [facility] [place] [facility] [address] [facility] [id number] [place] [address] May, 2014 [facility] [place] [facility] [address] [facility] [id number] [place] [address] May, 2014 [facility] [place] [facility] [address] [facility] [id number] [address] May, 2014 [facility] [place] [facility] [address] [facility] [id number] [place] [address] Apr, [facility] [place] [facility] [address] [id number] [place] [address] Apr, [facility] [place] [facility] [address] [facility] [id number] [place] [address] Apr, [facility] [place] [facility] [address] [facility] [id number], [place] [address] Apr, [facility] [place] [facility] [address] [id number] [place] [address] Apr, [facility] [place] [facility] [address] [id number] [place] [address] Apr, [facility] [place] [facility] [address] [id number] [place] [address] Apr, [facility] [place] [facility] [address] [id number] [place] [address] Apr, [facility] [place] [facility] [address] [id number] [place] [address] Apr, [facility] [place] [facility] [address] [id number] [place] [address] Apr, [facility] [place] [facility] [address] [id number] [place] [address] Mar, [facility] [place] [facility] [address] [id number] [place] [address] Mar, [facility] [place] [facility] [address] [id number] [place] [address] Mar, [facility] [place] [facility] [address] [id number] [place] [address] Mar, [facility] [place] [facility] [address] [id number] [place] [address] Mar, [facility] [place] [facility] [address] [id number] [place] [address] Feb, [facility] [place] [facility] [address] [id number] [place] [address] Feb, [facility] [place] [facility] [address] [id number] [place] [address] Dec, [facility] [place] [facility] [address] [id number] [place] [address] Dec, [facility] [place] [facility] [address] [id number] [place] [address] Nov, [facility] [address] [id number] [place] [address] Nov, [facility] [place] [facility] [address] [id number] [place] [address] Nov, [facility] [place] [facility] [address] [id number] [place] [address] Nov, [facility] [place] [facility] [address] [id number] [place] [address] Oct, [facility] [place] [facility] [address] [id number] [place] [address] Oct, [facility] [place] [facility] [address] [id number] [place] [address] Sep, [facility] [place] [facility] [address] [id number] [place] [address] Sep, [facility] [address] [id number] [place] [address] August, [facility] [place] [facility] [address] [id number] [place] [address] August, [facility] [address] [id number] [place] [address] August, [facility] [place] [facility] [address] [id number] [place] [address] August, [facility] [place] [facility] [address] [id number] [place] [address] Jul, [facility] [place] [facility] [address] [id number] [place] [address] Jul, [facility] [place] [facility] [address] [id number] [place] [address] Jun, [facility] [place] [facility] [address] [id number] [place] [address] Jun, [facility] [place] [facility] [address] [id number] [place] [address] May, [facility] [place] [facility] [address] [id number] [place] [address] May, [facility] [place] [facility] [address] [id number] [place] [address] May, [facility] [place] [facility] [address] [id number] [place] [address] May, [facility] [place] [facility] [address] [id number] [place] [address] May, [facility] [place] [facility] [address] [id number] [place] [address] May, [facility] [place] [facility] [address] [id number] [place] [address] May, [facility] [place] [facility] [address] [id number] [place] [address] Apr, [facility] [place] [facility] [address] [id number] [place] [address] Apr, [facility] [place] [facility] [address] [id number] [place] [address] Apr, [facility] [place] [facility] [address] [id number] [place] [address] Apr, [facility] [place] [facility] [address] [id number] [place] [address] Apr, [facility] [place] [facility] [address] [id number] [place] [address] Apr, [facility] [place] [facility] [address] [id number] [place] [address] Apr, [facility] [place] [facility] [address] [id number] [place] [address] Apr, [facility] [place] [facility] [address] [id number] [place] [address] Apr, [facility] [address] [id number] [place] [address] Apr, [facility] [address] [id number] [place] [address] Mar, [facility] [address] [id number] [place] [address] Mar, [facility] [address] [id number] [place] [address] Mar, [facility] [address] [id number] [place] [address] Mar, [facility] [address] [id number] [place] [address] Feb, [facility] [address] [id number] [place] [address] Feb, [facility] [address] [id number] [place] [address] Feb, [facility] [address] [id number] [place] [address] Feb, [facility] [address] [id number] [place] [address] Feb, [facility] [place] [facility] [address] [id number] [place] [address] Feb, [facility] [address] [id number] [place] [address] Jan, [facility] [place] [facility] [address] [id number] [place] [address] Jan, [facility] [place] [facility] [address] [id number] [place] [address] 05 Dec, 2012 [facility] [place] [facility] [address] [id number] [place] [address] Dec, [facility] [address] [id number] [place] [address] Nov, [facility] [place] [facility] [address] [id number] [place] [address] Nov, [facility] [address] [id number] [place] [address] Oct, [facility] [place] [facility] [address] [id number] [place] [address] Sep, [facility] [address] [id number] [place] [address] August, [facility] [address] [id number] [place] [address] Jul, [facility] [address] [id number] [place] [address] Jul, [facility] [address] [id number] [place] [address] Jul, [facility] [address] [id number] [place] [address] Jul, [facility] [address] [id number] [place] [address] Jul, [facility] [address] [id number] [place] [address] Jun, [facility] [place] [facility] [address] [id number], [place] [address] May, [facility] [place] [facility] [address] [id number] [place] [address] Apr, [facility] [place] [facility] [address] [id number] [place] [address] Mar, [facility] [place] [facility] [address] [id number], [place] [address] Mar, [facility] [place] [facility] [address] [id number], [place] [address] Mar, [facility] [place] [facility] [address] [id number] [place] [address] Jan, [facility] [place] [facility] [address] [id number] [place] [address] Jan, [facility] [place] [facility] [address] [facility] [id number] [place] [address] Jan, [facility] [place] [facility] [address] [id number] [place] [address] Jan, [facility] [place] [facility] [address] [id number] [place] [address], [place] [address] Dec, [facility] [place] [facility] [address] [id number] [place] [address] Dec, [facility] [place] [facility] [id number] [place] [address] Nov, [facility] [place] [facility] [address] [id number] [place] [address] Nov, [facility] [place] [facility] [address] [id number] [place] [address] Nov, [facility] [place] [facility] [address] [id number] [place] [address] Nov, [facility] [place] [facility] [address] [facility] [id number] [place] [address] Nov, [facility] [place] [facility] [address] [id number], [place] [address] Oct, [facility] [place] [facility] [address] [id number] [place] [address] Oct, [facility] [place] [facility] [address] [facility] [id number] [place] [address] Oct, [facility] [place] [facility] [address] [id number] [place] [address] Sep, [facility] [place] [facility] [address] [id number] [place] [address] August, [facility] [place] [facility] [address] [id number] [place] [address] Jul, [facility] [place] [facility] [address] [id number] [place] [address] Jul, [facility] [place] [facility] [address] [id number] [place] [address] Jul, [facility] [place] [facility] [address] [id number] [place] [address] Jul, [facility] [place] [facility] [address] [id number] [place] [address] 29 Jun, 2011 [facility] [place] [facility] [address] [id number] [place] [address] Jun, [facility] [place] [facility] [address] [id number] [place] [address] Jun, [facility] [place] [facility] [address] [id number] [place] [address] Jun, [facility] [place] [facility] [address] [id number] [place] [address] Jun, [facility] [place] [facility] [address] [id number] [place] [address] May, [facility] [place] [facility] [address] [id number] [place] [address] May, [facility] [place] [facility] [address] [id number] [place] [address] May, [facility] [place] [facility] [address] [id number] [place] [address] 24 May, 2011 [facility] [place] [facility] [address] [id number] [place] [address] Apr, [facility] [place] [facility] [address] [id number], [place] [address] Mar, [facility] [id number] [address] Mar, [facility] [id number], [place] [address] Jun, [facility] [id number], [place] [address] Feb, [facility] [id number], [place] [address] Jan, [facility] [id number], [place] [address] Jan, [facility] [id number], [place] [address] Jan, [facility] [id number], [place] [address] Dec, [facility] [id number], [place] [address] May, [facility] [id number], [place] [address] Feb, [facility] [id number], [place] [address] Feb, [facility] [address] [id number] [address] Feb, IMMUNIZATIONS No Known Immunizations SOCIAL HISTORY [...]
--- OUTSIDE RECORDS SUMMARY | 2018-11-21 21:55 | XMS REPORT ---
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 Name Role Phone KING ELYSE Unavailable PROBLEMS Type Condition ICD9-CM Code LFB11-VY Code Onset Dates Condition Status SNOMED Code Problem Generalized anxiety disorder F41.1 Active 80711136 Problem Hypercholesterolemia E78.00 Active 26204143 Problem Body mass index (BMI) of 32.0-32.9 in adult Z68.32 Active 570613252 Problem Chronic obstructive pulmonary disease, unspecified COPD type J44.9 Active 95056385 Problem Insomnia G47.00 Active 322884434 Problem Other depression F32.89 Active 300427347 Problem Facet arthropathy, lumbar M46.96 Active 366095334 Problem Lumbar spondylosis M47.816 Active 629862618 Problem Lumbago with sciatica, unspecified side M54.40 Active 61977960 Problem Other obesity due to excess calories E66.09 Active 787047964 Problem COPD exacerbation J44.1 Active 135632849 Problem Other chronic pain G89.29 Active 65378391 Problem Restless legs G25.81 Active 48975862 Problem Constipation due to outlet dysfunction K59.02 Active 35159928 Problem COPD (chronic obstructive pulmonary disease) J44.9 Active 48779199 Problem Depression F32.9 Active 22854132 Problem Anxiety F41.9 Active 52898414 Problem Gastroesophageal reflux disease with esophagitis K21.0 Active 023357991 Problem Essential hypertension I10 Active 42270391 Problem Severe episode of recurrent major depressive disorder, without psychotic features F33.2 Active 12053064 Problem Major depressive disorder, recurrent episode, moderate with anxious distress F33.1 Active 675988062 Problem Psychophysiological insomnia F51.04 Active 040078392 ALLERGIES No Known Allergies ENCOUNTERS Encounter Location Date Diagnosis [facility] [address] [facility] [id number] [address] 13 Dec, 2017 Fever, unspecified fever cause R50.9 ; Nausea and vomiting, intractability of vomiting not specified, unspecified vomiting type R11.2 ; Wheezing on auscultation R06.2 ; COPD (chronic obstructive pulmonary disease) J44.9 and Acute maxillary sinusitis, recurrence not specified J01.00 [place] [address] [place] [id number] [place] [address] 07 Dec, 2017 Edema of lower extremity R60.0 [place] [address] [address] Dec, [place] [address] [address] Nov, Essential hypertension I10 [place] [address] [address] Nov, [place] [address] [address] Nov, Severe episode of recurrent major depressive disorder, without psychotic features F33.2 ; Generalized anxiety disorder F41.1 and Psychophysiological insomnia F51.04 [place] [address] [address] Nov, COPD (chronic obstructive pulmonary disease) J44.9 ; Essential hypertension I10 ; Lumbar spondylosis M47.816 ; Generalized anxiety disorder F41.1 ; Rash and nonspecific skin eruption R21 ; Pain in joints of right hand M25.541 ; Pain in joints of left hand M25.542 and Hypercholesterolemia E78.00 [place] [id number] [place] [address] Nov, Rash and nonspecific skin eruption R21 and Non-intractable vomiting with nausea, unspecified vomiting type R11.2 [place] [id number] [place] [address] Oct, [place] [address] [address] Sep, Pain aggravated by standing R52 [facility] [id number] [place] [address] Sep, Other depression F32.89 [place] [address] [address] Sep, Chronic obstructive pulmonary disease, unspecified COPD type J44.9 ; Pain aggravated by standing R52 ; Other depression F32.89 ; Major depressive disorder, recurrent episode, moderate with anxious distress F33.1 ; Restless legs G25.81 ; Insomnia G47.00 ; Gastroesophageal reflux disease with esophagitis K21.0 ; Essential hypertension I10 ; Generalized anxiety disorder F41.1 and Hypercholesterolemia E78.00 [place] [address] [address] Jul, Fever, unspecified fever cause R50.9 and Cough R05 [place] [address] [address] Jul, [facility] [address] [address] Jul, Gastroesophageal reflux disease with esophagitis K21.0 [place] [address] [address] Jul, [facility] [address] [address] Jun, COPD (chronic obstructive pulmonary disease) J44.9 ; Restless legs G25.81 ; Insomnia G47.00 ; Essential hypertension I10 ; Major depressive disorder, recurrent episode, moderate with anxious distress F33.1 ; Gastroesophageal reflux disease with esophagitis K21.0 ; Constipation due to outlet dysfunction K59.02 ; Hypercholesterolemia E78.00 ; Other chronic pain G89.29 and Generalized abdominal pain R10.84 [facility] [id number] [place] [address] Jun, [facility] [address] [address] Jun, Acute recurrent sinusitis, unspecified location J01.91 and COPD exacerbation J44.1 [place] [address] [address] Jun, Lumbago with sciatica, unspecified side M54.40 [place] [address] [address] May, [place] [id number] [place] [address] May, Severe episode of recurrent major depressive disorder, without psychotic features F33.2 [place] [id number] [place] [address] Apr, COPD (chronic obstructive pulmonary disease) J44.9 [...] of 32.0-32.9 in adult Z68.32 [place] [id number] [place] [address] Apr, Severe episode of recurrent major depressive disorder, without psychotic features F33.2 [place] [id number] [place] [address] Feb, Severe episode of recurrent major depressive disorder, without psychotic features F33.2 and Restless legs G25.81 [place] [id number] [place] [address] Feb, Severe episode of recurrent major depressive disorder, without psychotic features F33.2 ; Generalized anxiety disorder F41.1 and Psychophysiological insomnia F51.04 [place] [address] [address] Dec, Severe episode of recurrent major depressive disorder, without psychotic features F33.2 ; Generalized anxiety disorder F41.1 and Psychophysiological insomnia F51.04 [place] [address] [place] [address] Nov, Severe episode of recurrent major depressive disorder, without psychotic features F33.2 ; Generalized anxiety disorder F41.1 and Psychophysiological insomnia F51.04 [place] [address] [id number] [place] [address] Nov, [place] [address] [address] [id number] [place] [address] Nov, Depression F32.9 [place] [id number] [place] [address] Nov, Depression F32.9 ; Insomnia G47.00 and Anxiety F41.9 [place] [id number] [place] [address] August, COPD (chronic obstructive pulmonary disease) J44.9 ; Depression F32.9 ; Anxiety F41.9 ; Major depressive disorder, recurrent episode, moderate with anxious distress F33.1 ; Insomnia G47.00 ; Restless legs G25.81 ; Essential hypertension I10 and Pure hypercholesterolemia E78.00 [place] [address] [id number] [place] [address] August, Acute intractable tension-type headache G44.201 [facility] [address] [place] [address] Jul, Left wrist pain M25.532 and Strain of left wrist, initial encounter S66.912A [place] [id number] [place] [address] 14 May, 2016 Gastroesophageal reflux disease with esophagitis K21.0 and Anxiety F41.9 [place] [id number] [place] [address] 13 May, 2016 Major depressive disorder, recurrent episode, moderate with anxious distress F33.1 ; COPD (chronic obstructive pulmonary disease) J44.9 ; Restless legs G25.81 ; Insomnia G47.00 ; Essential hypertension I10 ; Anxiety F41.9 ; Constipation due to outlet dysfunction K59.02 ; Torsion of intestine, bowel or colon K56.2 ; Hypercholesterolemia E78.00 and Gastroesophageal reflux disease with esophagitis K21.0 [place] [id number] [place] [address] 07 Feb, 2016 [place] [id number] [place] [address] 20 Dec, 2015 Essential hypertension I10 ; Depression F32.9 ; Anxiety F41.9 ; Constipation due to outlet dysfunction K59.02 ; Torsion of intestine, bowel or colon K56.2 ; COPD (chronic obstructive pulmonary disease) J44.9 ; Insomnia G47.00 ; Restless legs G25.81 and Gastroesophageal reflux disease with esophagitis K21.0 [place] [id number] [place] [address] 08 Dec, 2015 Essential hypertension I10 ; Major depressive disorder, recurrent episode, moderate with anxious distress F33.1 ; COPD (chronic obstructive pulmonary disease) J44.9 ; Restless legs G25.81 ; Insomnia G47.00 ; Constipation due to outlet dysfunction K59.02 and Gastroesophageal reflux disease without esophagitis K21.9 [place] [id number] [place] [address] 07 Dec, 2015 Major depressive disorder, recurrent episode, moderate with anxious distress F33.1 [place] [id number] [place] [address] Sep, [place] [id number] [place] [address] 23 Sep, 2015 Nausea R11.0 [place] [address] [address] [id number] [place] [address] 15 Sep, 2015 Lower abdominal pain R10.30 ; COPD (chronic obstructive pulmonary disease) J44.9 ; Restless legs G25.81 ; Essential hypertension I10 ; Depression F32.9 ; Other chronic pain G89.29 ; Lumbago with sciatica, unspecified side M54.40 and Primary insomnia F51.01 [facility] [address] [id number] [place] [address] August, [place] [address] [address] August, COPD (chronic obstructive pulmonary disease) J44.9 ; Insomnia G47.00 ; Depression F32.9 and Constipation due to outlet dysfunction K59.02 [place] [address] [address] August, [place] [address] [address] August, [place] [address] [address] August, Nausea & vomiting R11.2 [place] [address] [address] Jun, [place] [address] [address] Jun, Unspecified abdominal pain R10.9 ; Depression, major, recurrent, moderate 296.32 ; COPD (chronic obstructive pulmonary disease) J44.9 ; Restless legs G25.81 ; Insomnia G47.00 ; Intestinal abscess K63.0 ; HTN (hypertension) I10 and Hypercholesteremia E78.0 [place] [address] [address] [id number] [place] [address] Jun, Intestinal abscess K63.0 [place] [address] [address] [id number] [place] [address] May, [place] [address] [address] May, [place] [address] [address] [id number] [place] [address] May, Unspecified abdominal pain R10.9 [place] [address] [place] [id number] [place] [address] May, Depression, major, recurrent, moderate 296.32 ; COPD (chronic obstructive pulmonary disease) J44.9 ; Restless legs G25.81 ; Insomnia G47.00 ; Depression F32.9 ; HTN (hypertension) I10 and Hypercholesterolemia E78.0 [facility] [address] [address] Apr, [place] [address] [address] Mar, Cellulitis L03.[address] [address] Feb, Recurrent major depression-severe F33.[address] [address] Feb, Hyperlipemia E78.5 and High blood pressure I10 [place] [address] [address] Feb, COPD (chronic obstructive pulmonary disease) J44.9 ; Restless legs G25.81 ; Insomnia G47.00 ; Depression F32.9 and HTN (hypertension) I10 [place] [address] [address] Jan, [place] [address] [address] Jan, Generalized anxiety disorder F41.1 and Recurrent major depression- severe F33.[address] [address] Jan, Bronchitis J40 [address] [address] Jan, Shoulder pain, right M25.511 and Low back pain M54.[address] [address] Jan, [facility] [address] [address] Oct, [facility] [id number] [place] [address] Oct, Generalized anxiety disorder 300.02 and Depression, major, severe recurrence 296.33 [facility] [id number] [place] [address] Oct, [facility] [id number] [place] [address] Oct, Depression, major, recurrent, moderate 296.32 [facility] [id number] [place] [address] August, [facility] [id number] [place] [address] Jul, [facility] [id number] [place] [address] Jul, [facility] [address] [place] [address] Jun, [facility] [id number] [place] [address] Jun, [facility] [address] [address] May, [facility] [id number] [place] [address] May, [facility] [address] [address] May, [facility] [id number] [place] [address] May, [facility] [address] [address] May, [facility] [address] [place] [address] May, 2014 [facility] [place] [facility] [address] [id number] [place] [address] May, 2014 [facility] [place] [facility] [address] [id number] [place] [address] May, 2014 [facility] [place] [facility] [address] [id number] [place] [address] May, 2014 [facility] [place] [facility] [address] [id number] [place] [address] May, 2014 [facility] [place] [facility] [address] [id number] [place] [address] May, 2014 [facility] [place] [facility] [address] [id number] [place] [address] May, 2014 [facility] [place] [facility] [address] [facility] [id number] [place] [address] Apr, [facility] [place] [facility] [address] [id number] [place] [address] Apr, [facility] [place] [facility] [address] [id number] [place] [address] Apr, [facility] [place] [facility] [address] [facility] [id number] [place] [address] Apr, [facility] [place] [facility] [address] [id number] [place] [address] Apr, [facility] [place] [facility] [address] [id number] [address] Apr, [facility] [place] [facility] [address] [id number] [address] Apr, [facility] [place] [facility] [address] [id number] [address] Apr, [facility] [place] [facility] [address] [facility] [id number] [address] Apr, [facility] [place] [facility] [address] [id number] [place] [address] Apr, [facility] [place] [facility] [address] [id number] [place] [address] Mar, [facility] [place] [facility] [address] [id number] [place] [address] Mar, [facility] [place] [facility] [address] [id number] [place] [address] Mar, [facility] [place] [facility] [address] [id number] [place] [address] Mar, [facility] [place] [facility] [address] [id number] [place] [address] Mar, [facility] [place] [facility] [address] [id number] [place] [address] Feb, [facility] [place] [facility] [address] [id number] [place] [address] Feb, [facility] [place] [facility] [address] [id number] [place] [address] Dec, [facility] [place] [facility] [address] [id number] [place] [address] Dec, [facility] [place] [facility] [address] [id number] [place] [address] Nov, [facility] [place] [facility] [address] [id number] [place] [address] Nov, [facility] [place] [facility] [address] [id number] [place] [address] Nov, [facility] [place] [facility] [address] [id number] [place] [address] Nov, [facility] [place] [facility] [address] [id number] [place] [address] Oct, [facility] [place] [facility] [address] [id number] [place] [address] Oct, [facility] [place] [facility] [address] [id number] [place] [address] Sep, [facility] [place] [facility] [address] [id number] [place] [address] Sep, [facility] [place] [facility] [address] [id number] [place] [address] August, [facility] [place] [facility] [address] [id number] [place] [address] August, [facility] [place] [facility] [address] [id number] [place] [address] August, [facility] [place] [facility] [address] [id number] [place] [address] August, [facility] [place] [facility] [address] [id number] [place] [address] Jul, [facility] [place] [facility] [address] [id number] [place] [address] Jul, [facility] [place] [facility] [address] [id number] [place] [address] Jun, [facility] [place] [facility] [address] [id number] [place] [address] Jun, [facility] [place] [facility] [address] [id number] [place] [address] May, [facility] [place] [facility] [address] [id number] [place] [address] May, [facility] [place] [facility] [address] [id number] [place] [address] May, [facility] [place] [facility] [address] [id number] [place] [address] May, [facility] [place] [facility] [address] [id number] [place] [address] May, [facility] [place] [facility] [address] [id number] [place] [address] May, [facility] [place] [facility] [address] [id number] [place] [address] May, [facility] [place] [facility] [address] [id number] [place] [address] Apr, [facility] [place] [facility] [address] [id number] [place] [address] Apr, [facility] [place] [facility] [address] [id number] [place] [address] Apr, [facility] [place] [facility] [address] [id number] [place] [address] Apr, [facility] [place] [facility] [address] [id number] [place] [address] Apr, [facility] [place] [facility] [address] [id number] [place] [address] Apr, [facility] [place] [facility] [address] [id number] [place] [address] Apr, [facility] [place] [facility] [address] [id number] [place] [address] Apr, [facility] [place] [facility] [address] [id number] [place] [address] Apr, [facility] [place] [facility] [address] [id number] [place] [address] Apr, [facility] [place] [facility] [address] [id number] [place] [address] Mar, [facility] [place] [facility] [address] [id number] [place] [address] Mar, [facility] [place] [facility] [address] [id number] [place] [address] Mar, [facility] [place] [facility] [address] [id number] [place] [address] Mar, [facility] [place] [facility] [address] [id number] [place] [address] Feb, [facility] [place] [facility] [address] [id number] [place] [address] Feb, [facility] [place] [facility] [address] [id number] [place] [address] Feb, [facility] [place] [facility] [address] [id number] [place] [address] Feb, [facility] [place] [facility] [address] [id number] [place] [address] Feb, [facility] [place] [facility] [address] [id number] [place] [address] Feb, [facility] [place] [facility] [address] [id number] [place] [address] Jan, [facility] [place] [facility] [address] [id number] [place] [address] Jan, [facility] [place] [facility] [address] [id number] [place] [address] Dec, [facility] [place] [facility] [address] [id number] [address] Dec, [facility] [place] [facility] [address] [id number] [place] [address] Nov, [facility] [place] [facility] [address] [id number] [place] [address] Nov, [facility] [place] [facility] [address] [id number] [place] [address] Oct, [facility] [place] [facility] [address] [id number] [place] [address] Sep, [facility] [place] [facility] [address] [id number] [place] [address] August, [facility] [place] [facility] [address] [id number] [place] [address] 30 Jul, 2012 [facility] [address] [id number] [place] [address] 14 Jul, 2012 [facility] [place] [facility] [address] [id number] [place] [address] 10 Jul, 2012 [facility] [address] [id number] [place] [address] 05 Jul, 2012 [facility] [place] [facility] [address] [id number] [place] [address] 05 Jul, 2012 [facility] [place] [facility] [address] [id number] [place] [address] Jun, [facility] [place] [facility] [address] [id number] [place] [address] May, [facility] [address] [id number] [place] [address] Apr, [facility] [address] [id number] [place] [address] Mar, [facility] [place] [facility] [address] [id number] [place] [address] Mar, [facility] [place] [facility] [address] [facility] [id number] [place] [address] Mar, [facility] [place] [facility] [address] [id number] [place] [address] Jan, [facility] [place] [facility] [address] [id number] [place] [address] Jan, [facility] [place] [facility] [address] [id number] [place] [address] Jan, [facility] [place] [facility] [address] [facility] [id number] [place] [address] Jan, [facility] [place] [facility] [address] [id number] [place] [address] Dec, [facility] [place] [facility] [address] [id number] [place] [address] Dec, [facility] [place] [facility] [address] [id number] [place] [address] Nov, [facility] [place] [facility] [address] [id number] [place] [address] Nov, [facility] [place] [facility] [address] [id number] [place] [address] Nov, [facility] [address] [id number] [place] [address] Nov, [facility] [place] [facility] [address] [id number] [place] [address] Nov, [facility] [address] [id number] [place] [address] Oct, [facility] [address] [id number] [place] [address] Oct, [facility] [place] [facility] [address] [id number] [place] [address] Oct, [facility] [place] [facility] [address] [id number] [place] [address] Sep, [facility] [facility] [place] [facility] [address] [id number] [place] [address] August, [facility] [place] [facility] [address] [id number] [place] [address] Jul, [facility] [place] [facility] [address] [id number] [place] [address] Jul, [facility] [place] [facility] [address] [id number] [place] [address] Jul, [facility] [place] [facility] [address] [id number] [place] [address] Jul, [facility] [place] [facility] [address] [id number] [place] [address] 29 Jun, 2011 [facility] [address] [id number] [place] [address] 28 Jun, 2011 [facility] [place] [facility] [address] [id number] [place] [address] 23 Jun, 2011 [facility] [place] [facility] [address] [id number] [place] [address] 21 Jun, 2011 [facility] [place] [facility] [address] [id number] [place] [address] 15 Jun, 2011 [facility] [place] [facility] [address] [id number] [place] [address] 28 May, 2011 [facility] [place] [facility] [address] [id number] [place] [address] 28 May, 2011 [facility] [address] [facility] [id number] [place] [address] 27 May, 2011 [facility] [place] [facility] [address] [id number] [place] [address] 24 May, 2011 [facility] [place] [facility] [address] [facility] [id number] [place] [address] Apr, [facility] [place] [facility] [address] [facility] [id number] [place] [address] Mar, [facility] [place] [facility] [address] [id number] [place] [address] Mar, [facility] [place] [facility] [address] [id number] [place] [address] 17 Jun, 2010 [facility] [place] [facility] [address] [id number] [place] [address] 08 Feb, 2010 [facility] [place] [facility] [address] [id number] [place] [address] 26 Jan, 2010 [facility] [place] [facility] [address] [facility] [id number] [place] [address] 20 Jan, 2010 [facility] [place] [facility] [address] [facility] [id number] [place] [address] Jan, [facility] [address] [facility] [id number] [place] [address] Dec, [facility] [address] [facility] [id number] [place] [address] May, [facility] [address] [facility] [id number] [place] [address] Feb, [facility] [address] [facility] [id number] [place] [address] Feb, [facility] [address] [facility] [id number] [place] [address] Feb, IMMUNIZATIONS No Known Immunizations SOCIAL HISTORY Never Assessed REASON FOR VISIT Pt c/o rash on both legs . She states that it starts out as red then it blisters and itches. Also has swelling in both legs. FADY Vallejo PLAN OF CARE Activity Details Follow Up 2-4 weeks Reason:rash VITAL SIGNS Height 62 in 2017-12-25 Weight 190.3 lbs 2017-12-25 Temperature 98.6 degrees Fahrenheit 2017-12-25 Heart Rate 102 bpm 2017-12-25 Respiratory Rate 20 2017-12-25 BMI 34.80 kg/m2 2017-12-25 Blood pressure systolic 168 mmHg 2017-12-25 Blood pressure diastolic 102 mmHg 2017-12-25 MEDICATIONS Medication Instructions Dosage Frequency Start Date End Date Duration Status Dulera 100-5 mcg/actuation 2 puffs by Inhalation route 2 times per day 12h 30 Jul, 2012 Active Omeprazole 20 mg Orally Once a day 1 capsule 24h Active Amlodipine Besylate 5 mg Orally Once a day 1 tablet 24h Nov, 30 day(s) Active Losartan Potassium-HCTZ 50-12.5 MG Orally Once a day 2 tablets 24h Nov, 90 days Active Melatonin 3 MG Orally Once a day 1 tablet at bedtime as needed with food 24h Active Zofran 8 MG Orally Twice a day prn nausea 1 tablet Nov, 7 days Active Remeron 45 MG Orally Once a day at bedtime 1 tablet Nov, 30 day(s) Active Gabapentin 300 MG Orally Three times a day 1 capsule 8h 08 May, 2015 30 days Active MiraLax 17 gm/dose Orally Once a day prn 1 packet mixed with 8 ounces of fluid May, Apr, 12 months Active Triamcinolone Acetonide 0.1 % Externally Twice a day 1 application to affected area 12h Nov, 14 days Active Klonopin 1 MG Orally Once a day as needed 1 tablet Nov, 30 days Active Albuterol Sulfate 2.5 mg /3 mL (0.083 %) Inhalation every 4-6 hours as needed 1 Each by Inhalation route every 4 hours for cough and wheeze PRN for wheezing or cough; Jun, Active Atorvastatin Calcium 10 mg Orally Once a day 1 tablet 24h May, Active Cymbalta 60 MG Orally twice a day 1 capsule 12h Nov, Active RESULTS No Results PROCEDURES No Known [...]
--- OUTSIDE RECORDS SUMMARY | 2018-11-21 21:55 | XMS REPORT ---
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 Name Role Phone TUSHAR Nguyen Unavailable PROBLEMS Type Condition ICD9-CM Code MAF73-AH Code Onset Dates Condition Status SNOMED Code Problem Generalized anxiety disorder F41.1 Active 86287291 Problem Hypercholesterolemia E78.00 Active 48075865 Problem Body mass index (BMI) of 32.0-32.9 in adult Z68.32 Active 407287022 Problem Chronic obstructive pulmonary disease, unspecified COPD type J44.9 Active 62684982 Problem Insomnia G47.00 Active 054075209 Problem Other depression F32.89 Active 263211483 Problem Facet arthropathy, lumbar M46.96 Active 701716021 Problem Lumbar spondylosis M47.816 Active 073322576 Problem Lumbago with sciatica, unspecified side M54.40 Active 85350112 Problem Other obesity due to excess calories E66.09 Active 486229359 Problem COPD exacerbation J44.1 Active 407758849 Problem Other chronic pain G89.29 Active 01261047 Problem Restless legs G25.81 Active 24673666 Problem Constipation due to outlet dysfunction K59.02 Active 59433196 Problem COPD (chronic obstructive pulmonary disease) J44.9 Active 15267159 Problem Depression F32.9 Active 58814409 Problem Anxiety F41.9 Active 55147161 Problem Gastroesophageal reflux disease with esophagitis K21.0 Active 974233843 Problem Essential hypertension I10 Active 72151592 Problem Severe episode of recurrent major depressive disorder, without psychotic features F33.2 Active 28783142 Problem Major depressive disorder, recurrent episode, moderate with anxious distress F33.1 Active 427075027 Problem Psychophysiological insomnia F51.04 Active 667862524 ALLERGIES No Known Allergies ENCOUNTERS Encounter Location Date Diagnosis [facility] [address] [facility]NOTE 3[facility] [id number] [address] 13 Dec, 2017 Fever, unspecified fever cause R50.9 ; Nausea and vomiting, intractability of vomiting not specified, unspecified vomiting type R11.2 ; Wheezing on auscultation R06.2 ; COPD (chronic obstructive pulmonary disease) J44.9 and Acute maxillary sinusitis, recurrence not specified J01.00 [place] [id number] [place] [address] 07 Dec, 2017 Edema of lower extremity R60.0 [place] [address] [address] Dec, [place] [address] [address] Nov, Essential hypertension I10 [place] [address] [address] Nov, [place] [address] [address] Nov, Severe episode of recurrent major depressive disorder, without psychotic features F33.2 ; Generalized anxiety disorder F41.1 and Psychophysiological insomnia F51.04 [place] [address] [address] Nov, COPD (chronic obstructive pulmonary disease) J44.9 ; Essential hypertension I10 ; Lumbar spondylosis M47.816 ; Generalized anxiety disorder F41.1 ; Rash and nonspecific skin eruption R21 ; Pain in joints of right hand M25.541 ; Pain in joints of left hand M25.542 and Hypercholesterolemia E78.00 [place] [id number] [place] [address] Nov, Rash and nonspecific skin eruption R21 and Non-intractable vomiting with nausea, unspecified vomiting type R11.2 [place] [id number] [place] [address] Oct, [place] [address] [address] Sep, Pain aggravated by standing R52 [facility] [id number] [place] [address] Sep, Other depression F32.89 [place] [id number] [place] [address] Sep, Chronic obstructive pulmonary disease, unspecified COPD type J44.9 ; Pain aggravated by standing R52 ; Other depression F32.89 ; Major depressive disorder, recurrent episode, moderate with anxious distress F33.1 ; Restless legs G25.81 ; Insomnia G47.00 ; Gastroesophageal reflux disease with esophagitis K21.0 ; Essential hypertension I10 ; Generalized anxiety disorder F41.1 and Hypercholesterolemia E78.00 [place] [address] [address] Jul, Fever, unspecified fever cause R50.9 and Cough R05 [place] [address] [address] Jul, [place] [address] [address] Jul, Gastroesophageal reflux disease with esophagitis K21.0 [place] [address] [address] Jul, [place] [address] [address] Jun, COPD (chronic obstructive pulmonary disease) J44.9 ; Restless legs G25.81 ; Insomnia G47.00 ; Essential hypertension I10 ; Major depressive disorder, recurrent episode, moderate with anxious distress F33.1 ; Gastroesophageal reflux disease with esophagitis K21.0 ; Constipation due to outlet dysfunction K59.02 ; Hypercholesterolemia E78.00 ; Other chronic pain G89.29 and Generalized abdominal pain R10.84 [facility] [id number] [place] [address] Jun, [place] [address] [address] Jun, Acute recurrent sinusitis, unspecified location J01.91 and COPD exacerbation J44.1 [place] [address] [place] [address] Jun, Lumbago with sciatica, unspecified side M54.40 [place] [address] [address] May, [place] [id number] [place] [address] May, Severe episode of recurrent major depressive disorder, without psychotic features F33.2 [place] [id number] [place] [address] Apr, COPD (chronic obstructive pulmonary disease) J44.9 [...] index (BMI) of 32.0-32.9 in adult Z68.32 [place] [id number] [place] [address] Apr, Severe episode of recurrent major depressive disorder, without psychotic features F33.2 [place] [address] [place] [address] Feb, Severe episode of recurrent major depressive disorder, without psychotic features F33.2 and Restless legs G25.81 [place] [address] [address] Feb, Severe episode of recurrent major depressive disorder, without psychotic features F33.2 ; Generalized anxiety disorder F41.1 and Psychophysiological insomnia F51.04 [place] [address] [place] [address] Dec, Severe episode of recurrent major depressive disorder, without psychotic features F33.2 ; Generalized anxiety disorder F41.1 and Psychophysiological insomnia F51.04 [place] [id number] [place] [address] Nov, Severe episode of recurrent major depressive disorder, without psychotic features F33.2 ; Generalized anxiety disorder F41.1 and Psychophysiological insomnia F51.04 [place] [address] [address] Nov, [place] [address] [address] Nov, Depression F32.9 [place] [address] [address] Nov, Depression F32.9 ; Insomnia G47.00 and Anxiety F41.9 [place] [address] [address] August, COPD (chronic obstructive pulmonary disease) J44.9 ; Depression F32.9 ; Anxiety F41.9 ; Major depressive disorder, recurrent episode, moderate with anxious distress F33.1 ; Insomnia G47.00 ; Restless legs G25.81 ; Essential hypertension I10 and Pure hypercholesterolemia E78.00 [place] [address] [address] August, Acute intractable tension-type headache G44.201 [facility] [address] [address] Jul, Left wrist pain M25.532 and Strain of left wrist, initial encounter S66.912A [place] [id number] [place] [address] 14 May, 2016 Gastroesophageal reflux disease with esophagitis K21.0 and Anxiety F41.9 [facility] [id number] [place] [address] 13 May, 2016 Major depressive disorder, recurrent episode, moderate with anxious distress F33.1 ; COPD (chronic obstructive pulmonary disease) J44.9 ; Restless legs G25.81 ; Insomnia G47.00 ; Essential hypertension I10 ; Anxiety F41.9 ; Constipation due to outlet dysfunction K59.02 ; Torsion of intestine, bowel or colon K56.2 ; Hypercholesterolemia E78.00 and Gastroesophageal reflux disease with esophagitis K21.0 [place] [id number] [place] [address] 07 Feb, 2016 [place] [address] [address] 20 Dec, 2015 Essential hypertension I10 ; Depression F32.9 ; Anxiety F41.9 ; Constipation due to outlet dysfunction K59.02 ; Torsion of intestine, bowel or colon K56.2 ; COPD (chronic obstructive pulmonary disease) J44.9 ; Insomnia G47.00 ; Restless legs G25.81 and Gastroesophageal reflux disease with esophagitis K21.0 [place] [id number] [place] [address] 08 Dec, 2015 Essential hypertension I10 ; Major depressive disorder, recurrent episode, moderate with anxious distress F33.1 ; COPD (chronic obstructive pulmonary disease) J44.9 ; Restless legs G25.81 ; Insomnia G47.00 ; Constipation due to outlet dysfunction K59.02 and Gastroesophageal reflux disease without esophagitis K21.9 [place] [id number] [place] [address] 07 Dec, 2015 Major depressive disorder, recurrent episode, moderate with anxious distress F33.1 [place] [id number] [place] [address] Sep, [place] [id number] [place] [address] 23 Sep, 2015 Nausea R11.0 [place] [id number] [place] [address] 15 Sep, 2015 Lower abdominal pain R10.30 ; COPD (chronic obstructive pulmonary disease) J44.9 ; Restless legs G25.81 ; Essential hypertension I10 ; Depression F32.9 ; Other chronic pain G89.29 ; Lumbago with sciatica, unspecified side M54.40 and Primary insomnia F51.01 [place] [id number] [place] [address] August, [place] [address] [address] August, COPD (chronic obstructive pulmonary disease) J44.9 ; Insomnia G47.00 ; Depression F32.9 and Constipation due to outlet dysfunction K59.02 [place] [id number] [place] [address] August, [place] [address] [address] August, [place] [address] [address] August, Nausea & vomiting R11.2 [place] [address] [address] Jun, [place] [id number] [place] [address] Jun, Unspecified abdominal pain R10.9 ; Depression, major, recurrent, moderate 296.32 ; COPD (chronic obstructive pulmonary disease) J44.9 ; Restless legs G25.81 ; Insomnia G47.00 ; Intestinal abscess K63.0 ; HTN (hypertension) I10 and Hypercholesteremia E78.0 [place] [id number] [place] [address] Jun, Intestinal abscess K63.0 [place] [id number] [place] [address] May, [place] [id number] [place] [address] May, [place] [id number] [place] [address] May, Unspecified abdominal pain R10.[id number] [place] [address] 08 May, 2015 Depression, major, recurrent, moderate 296.32 ; COPD (chronic obstructive pulmonary disease) J44.9 ; Restless legs G25.81 ; Insomnia G47.00 ; Depression F32.9 ; HTN (hypertension) I10 and Hypercholesterolemia E78.[address] [address] Apr, [place] [address] [address] Mar, Cellulitis L03.[address] [address] Feb, Recurrent major depression-severe F33.[address] [address] Feb, Hyperlipemia E78.5 and High blood pressure I10 [address] [address] Feb, COPD (chronic obstructive pulmonary disease) J44.9 ; Restless legs G25.81 ; Insomnia G47.00 ; Depression F32.9 and HTN (hypertension) I10 [place] [id number] [place] [address] Jan, [address] [address] Jan, Generalized anxiety disorder F41.1 and Recurrent major depression- severe F33.[address] [address] Jan, Bronchitis J40 [address] [address] Jan, Shoulder pain, right M25.511 and Low back pain M54.[address] [address] Jan, [facility] [address] [address] Oct, [facility] [id number] [place] [address] Oct, Generalized anxiety disorder 300.02 and Depression, major, severe recurrence 296.33 [facility] [id number] [place] [address] Oct, [facility] [id number] [place] [address] Oct, Depression, major, recurrent, moderate 296.32 [facility] [id number] [place] [address] August, [facility] [id number] [place] [address] Jul, [facility] [id number] [place] [address] Jul, [facility] [address] [place] [address] Jun, [facility] [id number] [place] [address] Jun, [facility] [address] [place] [address] May, [facility] [address] [place] [address] May, [facility] [address] [address] May, [facility] [id number] [place] [address] May, [facility] [address] [address] May, [facility] [id number] [place] [address] May, 2014 [facility] [place] [facility] [address] [id number] [place] [address] May, 2014 [facility] [place] [facility] [address] [id number] [place] [address] May, 2014 [facility] [place] [facility] [address] [id number] [place] [address] May, 2014 [facility] [place] [facility] [address] [id number] [place] [address] May, 2014 [facility] [place] [facility] [address] [id number] [place] [address] May, 2014 [facility] [place] [facility] [address] [id number] [place] [address] May, 2014 [facility] [place] [facility] [address] [id number] [place] [address] Apr, [facility] [place] [facility] [address] [id number] [place] [address] Apr, [facility] [place] [facility] [address] [id number] [place] [address] Apr, [facility] [place] [facility] [address] [id number] [place] [address] Apr, [facility] [place] [facility] [address] [id number] [place] [address] Apr, [facility] [place] [facility] [address] [id number] [place] [address] Apr, [facility] [place] [facility] [address] [id number] [place] [address] Apr, [facility] [place] [facility] [address] [id number] [place] [address] Apr, [facility] [place] [facility] [address] [id number] [place] [address] Apr, [facility] [place] [facility] [address] [id number] [place] [address] Apr, [facility] [place] [facility] [address] [id number] [place] [address] Mar, [facility] [place] [facility] [address] [id number] [place] [address] Mar, [facility] [place] [facility] [address] [id number] [place] [address] Mar, [facility] [place] [facility] [address] [id number] [place] [address] Mar, [facility] [place] [facility] [address] [id number] [place] [address] Mar, [facility] [place] [facility] [address] [id number] [place] [address] Feb, [facility] [place] [facility] [address] [id number] [place] [address] Feb, [facility] [place] [facility] [address] [id number] [place] [address] Dec, [facility] [place] [facility] [address] [id number] [place] [address] Dec, [facility] [place] [facility] [address] [id number] [place] [address] Nov, [facility] [place] [facility] [address] [id number] [place] [address] Nov, [facility] [place] [facility] [address] [id number] [place] [address] Nov, [facility] [place] [facility] [address] [id number] [place] [address] Nov, [facility] [place] [facility] [address] [id number] [place] [address] Oct, [facility] [place] [facility] [address] [id number] [address] Oct, [facility] [address] [id number] [place] [address] Sep, [facility] [place] [facility] [address] [id number] [place] [address] Sep, [facility] [place] [facility] [address] [id number] [place] [address] August, [facility] [place] [facility] [address] [id number] [place] [address] August, [facility] [place] [facility] [address] [id number] [place] [address] August, [facility] [place] [facility] [address] [id number] [place] [address] August, [facility] [place] [facility] [address] [facility] [id number] [place] [address] Jul, [facility] [place] [facility] [address] [id number] [place] [address] Jul, [facility] [place] [facility] [address] [id number] [place] [address] Jun, [facility] [place] [facility] [address] [id number] [place] [address] Jun, [facility] [place] [facility] [address] [id number] [place] [address] May, [facility] [place] [facility] [address] [id number] [place] [address] May, [facility] [place] [facility] [address] [id number] [place] [address] May, [facility] [place] [facility] [address] [id number] [place] [address] May, [facility] [place] [facility] [address] [facility] [id number] [place] [address] May, [facility] [place] [facility] [address] [id number] [place] [address] May, [facility] [place] [facility] [address] [id number] [place] [address] May, [facility] [place] [facility] [address] [id number] [place] [address] Apr, [facility] [place] [facility] [address] [id number] [place] [address] Apr, [facility] [address] [id number] [place] [address] Apr, [facility] [place] [facility] [address] [id number] [place] [address] Apr, [facility] [address] [id number] [place] [address] Apr, [facility] [address] [id number] [place] [address] Apr, [facility] [address] [id number] [place] [address] Apr, [facility] [place] [facility] [address] [id number] [place] [address] Apr, [facility] [place] [facility] [address] [id number] [place] [address] Apr, [facility] [place] [facility] [address] [id number] [place] [address] Apr, [facility] [place] [facility] [address] [id number] [place] [address] Mar, [facility] [place] [facility] [address] [id number] [place] [address] Mar, [facility] [place] [facility] [address] [id number] [place] [address] Mar, [facility] [place] [facility] [address] [id number], [place] [address] Mar, [facility] [place] [facility] [address] [id number] [place] [address] Feb, [facility] [place] [facility] [address] [id number] [place] [address] Feb, [facility] [place] [facility] [address] [id number] [place] [address] Feb, [facility] [place] [facility] [address] [id number] [place] [address] Feb, [facility] [place] [facility] [address] [id number] [place] [address] Feb, [facility] [place] [facility] [address] [id number] [place] [address] Feb, [facility] [place] [facility] [address] [id number] [place] [address] Jan, [facility] [place] [facility] [address] [id number] [place] [address] Jan, [facility] [place] [facility] [address] [id number] [place] [address] Dec, [facility] [place] [facility] [address] [id number] [place] [address] Dec, [facility] [place] [facility] [address] [id number] [address] Nov, [facility] [place] [facility] [address] [id number], [place] [address] Nov, [facility] [place] [facility] [address] [id number] [place] [address] Oct, [facility] [place] [facility] [address] [id number] [place] [address] Sep, [facility] [place] [facility] [address] [id number] [place] [address] August, [facility] [place] [facility] [address] [id number] [place] [address] 30 Jul, 2012 [facility] [address] [id number] [place] [address] 14 Jul, 2012 [facility] [address] [id number] [place] [address] 10 Jul, 2012 [facility] [address] [id number] [place] [address] 05 Jul, 2012 [facility] [address] [id number] [place] [address] 05 Jul, 2012 [facility] [address] [id number] [place] [address] Jun, [facility] [address] [id number] [place] [address] May, [facility] [address] [id number] [place] [address] Apr, [facility] [address] [id number] [place] [address] Mar, [facility] [address] [id number] [place] [address] Mar, [facility] [address] [facility]NOTE [facility]] [id number] [place] [address] Mar, [facility] [address] [id number] [place] [address] Jan, [facility] [address] [id number] [place] [address] Jan, [facility] [place] [facility] [address] [id number] [place] [address] Jan, [facility] [address] [id number] [place] [address] Jan, [facility] [address] [id number] [place] [address] Dec, [facility] [place] [facility] [address] [id number] [place] [address] Dec, [facility] [place] [facility] [address] [id number] [place] [address] Nov, [facility] [place] [facility] [address] [id number] [place] [address] Nov, [facility] [place] [facility] [address] [id number] [place] [address] Nov, [facility] [place] [facility] [address] [id number] [place] [address] Nov, [facility] [place] [facility] [address] [id number] [place] [address] Nov, [facility] [place] [facility] [address] [id number] [place] [address] Oct, [facility] [place] [facility] [address] [id number] [place] [address] Oct, [facility] [place] [facility] [address] [id number] [place] [address] Oct, [facility] [place] [facility] [address] [id number] [place] [address] Sep, [facility] [place] [facility] [address] [id number] [place] [address] August, [facility] [place] [facility] [address] [id number] [place] [address] Jul, [facility] [place] [facility] [address] [id number] [place] [address] Jul, [facility] [place] [facility] [address] [id number] [place] [address] Jul, [facility] [place] [facility] [address] [id number] [place] [address] Jul, [facility] [place] [facility] [address] [id number] [place] [address] 29 Jun, 2011 [facility] [address] [id number] [place] [address] 28 Jun, 2011 [facility] [place] [facility] [address] [id number] [place] [address] 23 Jun, 2011 [facility] [place] [facility] [address] [id number] [place] [address] 21 Jun, 2011 [facility] [place] [facility] [address] [id number] [place] [address] 15 Jun, 2011 [facility] [place] [facility] [address] [id number] [place] [address] 28 May, 2011 [facility] [place] [facility] [address] [id number] [place] [address] 28 May, 2011 [facility] [place] [facility] [address] [id number] [place] [address] 27 May, 2011 [facility] [place] [facility] [address] [id number] [place] [address] 24 May, 2011 [facility] [place] [facility] [address] [id number] [place] [address] Apr, [facility] [place] [facility] [address] [facility]NOTE [facility] [id number] [place] [address] 28 Mar, 2011 [facility] [place] [facility] [address] [id number] [place] [address] 12 Mar, 2011 [facility] [place] [facility] [address] [id number] [place] [address] 17 Jun, 2010 [facility] [place] [facility] [address] [id number] [place] [address] 08 Feb, 2010 [facility] [place] [facility] [address] [id number] [place] [address] 26 Jan, 2010 [facility] [place] [facility] [address] [id number] [place] [address] Jan, [facility] [address] [facility]NOTE [facility] [id number] [address] Jan, [facility] [address] [id number] [address] Dec, [facility] [address] [id number] [address] May, [facility] [id number], [place] [address] Feb, [facility] [address] [id number], [place] [address] Feb, [facility] [id number] [address] Feb, IMMUNIZATIONS No Known Immunizations SOCIAL HISTORY Never Assessed REASON FOR VISIT congested/headache Pt states she has had some vomiting, congestion and headache along with body aches for 3-4 days FADY Espinoza PLAN OF CARE Activity Details Follow Up prn, 3 Months Reason:CHM/COPD w/ Melody Pending Test CMP Pending Test CBC VITAL SIGNS Height 62 in 2017-12-31 Weight 182.8 lbs 2017-12-31 Temperature 98.0 degrees Fahrenheit 2017-12-31 Heart Rate 96 bpm 2017-12-31 Respiratory Rate 22 2017-12-31 Oximetry on room air:94 % 2017-12-31 BMI 33.43 kg/m2 2017-12-31 Blood pressure systolic 136 mmHg 2017-12-31 Blood pressure diastolic 96 mmHg 2017-12-31 MEDICATIONS Medication Instructions Dosage Frequency Start Date End Date Duration Status Klonopin 1 MG Orally Once a day as needed 1 tablet Nov, 30 days Active Amlodipine Besylate 5 mg Orally Once a day 1 tablet 24h Nov, 30 day(s) Active Cymbalta 60 MG Orally twice a day 1 capsule 12h Nov, Active Remeron 45 MG Orally Once a day at bedtime 1 tablet Nov, 30 day(s) Active Zofran 8 MG Orally Twice a day prn nausea 1 tablet Nov, 10 days Active Triamcinolone Acetonide 0.1 % Externally Twice a day 1 application to affected area 12h Nov, 14 days Active Omeprazole 20 mg Orally Once a day 1 capsule 24h Active Losartan Potassium-HCTZ 50-12.5 MG Orally Once a day 2 tablets 24h Nov, 90 days Active PredniSONE 20 mg Orally Once a day 1 tablet 24h Dec, Dec, 5 days Active Dulera 100-5 mcg/actuation 2 puffs by Inhalation route 2 times per day 12h 30 Jul, 2012 Active Augmentin 875-125 MG Orally every 12 hrs 1 tablet 12h Dec, Dec, 10 day(s) Active Atorvastatin Calcium 10 mg Orally Once a day 1 tablet 24h May, Active Albuterol Sulfate 2.5 mg /3 mL (0.083 %) Inhalation every 4-6 hours as needed 1 Each by Inhalation route every 4 hours for cough and wheeze PRN for wheezing or cough; Jun, Active MiraLax 17 gm/dose Orally Once a day prn 1 packet mixed with 8 ounces of fluid May, Apr, 12 months Active Melatonin 3 MG Orally Once a day 1 tablet at bedtime as needed with food 24h Active Gabapentin 300 MG Orally Three times a day 1 capsule 8h 08 May, 2015 30 days Active RESULTS Name Result Date Reference Range INFLUENZA A & B (IN HOUSE) 2017-12-31 INFLUENZA A INFLUENZA B negative Control + Lot # [id number] Exp date 06/30/19 Xray : Chest 2 View (IN HOUSE) 2017-12-31 PROCEDURES Procedure Date Ordered Result Body Site COMPLETE CBC W/AUTO DIFF WBC Dec 31, 2017 COMPREHEN METABOLIC PANEL Dec 31, 2017 INFLUENZA ASSAY W/OPTIC Dec 31, 2017 X-RAY EXAM CHEST 2 VIEWS Dec 31, 2017 VENIPUNCT, ROUTINE* Dec 31, 2017 INSTRUCTIONS MEDICATIONS ADMINISTERED No Known Medications MEDICAL [...]
--- OUTSIDE RECORDS SUMMARY | 2018-11-21 21:56 | XMS REPORT ---
Author Author LOVELACETUSHAR Ryder Organization [facility] Address [address] [place] [address] Care Team Providers Care Template Maker Name Role Phone TUSHAR LOVELACE Unavailable PROBLEMS Type Condition ICD9-CM Code [id number] Code Onset Dates Condition Status SNOMED Code Problem Generalized anxiety disorder F41.1 Active 04439804 Problem Hypercholesterolemia E78.00 Active 13984639 Problem Body mass index (BMI) of 32.0-32.9 in adult Z68.32 Active 327640110 Problem Chronic obstructive pulmonary disease, unspecified COPD type J44.9 Active 30834446 Problem Insomnia G47.00 Active 955193720 Problem Other depression F32.89 Active 376464232 Problem Facet arthropathy, lumbar M46.96 Active 063152199 Problem Lumbar spondylosis M47.816 Active 668171962 Problem Lumbago with sciatica, unspecified side M54.40 Active 37985873 Problem Other obesity due to excess calories E66.09 Active 373459153 Problem COPD exacerbation J44.1 Active 473591640 Problem Other chronic pain G89.29 Active 35512925 Problem Restless legs G25.81 Active 63140006 Problem Constipation due to outlet dysfunction K59.02 Active 25471411 Problem COPD (chronic obstructive pulmonary disease) J44.9 Active 37773295 Problem Depression F32.9 Active 32059716 Problem Anxiety F41.9 Active 84354662 Problem Gastroesophageal reflux disease with esophagitis K21.0 Active 503660332 Problem Essential hypertension I10 Active 72537435 Problem Severe episode of recurrent major depressive disorder, without psychotic features F33.2 Active 27416533 Problem Major depressive disorder, recurrent episode, moderate with anxious distress F33.1 Active 594795395 Problem Psychophysiological insomnia F51.04 Active 036632374 ALLERGIES No Information ENCOUNTERS Encounter Location Date Diagnosis [facility] [address] [facility] [id number] [address] 13 Dec, 2017 Fever, unspecified fever cause R50.9 ; Nausea and vomiting, intractability of vomiting not specified, unspecified vomiting type R11.2 ; Wheezing on auscultation R06.2 ; COPD (chronic obstructive pulmonary disease) J44.9 and Acute maxillary sinusitis, recurrence not specified J01.00 [place] [id number] [place] [address] 07 Dec, 2017 Edema of lower extremity R60.0 [place] [address] [address] Dec, [place] [address] [address] Nov, Essential hypertension I10 [place] [address] [address] Nov, [place] [address] [address] Nov, Severe episode of recurrent major depressive disorder, without psychotic features F33.2 ; Generalized anxiety disorder F41.1 and Psychophysiological insomnia F51.04 [place] [address] [address] Nov, COPD (chronic obstructive pulmonary disease) J44.9 ; Essential hypertension I10 ; Lumbar spondylosis M47.816 ; Generalized anxiety disorder F41.1 ; Rash and nonspecific skin eruption R21 ; Pain in joints of right hand M25.541 ; Pain in joints of left hand M25.542 and Hypercholesterolemia E78.00 [place] [id number] [place] [address] Nov, Rash and nonspecific skin eruption R21 and Non-intractable vomiting with nausea, unspecified vomiting type R11.2 [place] [id number] [place] [address] Oct, [place] [address] [address] Sep, Pain aggravated by standing R52 [facility] [id number] [place] [address] Sep, Other depression F32.89 [place] [address] [address] Sep, Chronic obstructive pulmonary disease, unspecified COPD type J44.9 ; Pain aggravated by standing R52 ; Other depression F32.89 ; Major depressive disorder, recurrent episode, moderate with anxious distress F33.1 ; Restless legs G25.81 ; Insomnia G47.00 ; Gastroesophageal reflux disease with esophagitis K21.0 ; Essential hypertension I10 ; Generalized anxiety disorder F41.1 and Hypercholesterolemia E78.00 [place] [address] [address] Jul, Fever, unspecified fever cause R50.9 and Cough R05 [place] [address] [address] Jul, [facility] [address] [address] Jul, Gastroesophageal reflux disease with esophagitis K21.0 [place] [address] [address] Jul, [facility] [address] [address] Jun, COPD (chronic obstructive pulmonary disease) J44.9 ; Restless legs G25.81 ; Insomnia G47.00 ; Essential hypertension I10 ; Major depressive disorder, recurrent episode, moderate with anxious distress F33.1 ; Gastroesophageal reflux disease with esophagitis K21.0 ; Constipation due to outlet dysfunction K59.02 ; Hypercholesterolemia E78.00 ; Other chronic pain G89.29 and Generalized abdominal pain R10.84 [facility] [id number] [place] [address] Jun, [facility] [address] [address] Jun, Acute recurrent sinusitis, unspecified location J01.91 and COPD exacerbation J44.1 [place] [address] [address] Jun, Lumbago with sciatica, unspecified side M54.40 [place] [address] [address] May, [place] [id number] [place] [address] May, Severe episode of recurrent major depressive disorder, without psychotic features F33.2 [place] [id number] [place] [address] Apr, COPD (chronic obstructive pulmonary disease) J44.9 [...] index (BMI) of 32.0-32.9 in adult Z68.32 [place] [address] [place] [address] Apr, Severe episode of recurrent major depressive disorder, without psychotic features F33.2 [place] [id number] [place] [address] Feb, Severe episode of recurrent major depressive disorder, without psychotic features F33.2 and Restless legs G25.81 [place] [address] [place] [address] Feb, Severe episode of recurrent major depressive disorder, without psychotic features F33.2 ; Generalized anxiety disorder F41.1 and Psychophysiological insomnia F51.04 [place] [address] [address] Dec, Severe episode of recurrent major depressive disorder, without psychotic features F33.2 ; Generalized anxiety disorder F41.1 and Psychophysiological insomnia F51.04 [place] [address] [place] [address] Nov, Severe episode of recurrent major depressive disorder, without psychotic features F33.2 ; Generalized anxiety disorder F41.1 and Psychophysiological insomnia F51.04 [place] [id number] [place] [address] Nov, [place] [id number] [place] [address] Nov, Depression F32.9 [place] [id number] [place] [address] Nov, Depression F32.9 ; Insomnia G47.00 and Anxiety F41.9 [place] [id number] [place] [address] August, COPD (chronic obstructive pulmonary disease) J44.9 ; Depression F32.9 ; Anxiety F41.9 ; Major depressive disorder, recurrent episode, moderate with anxious distress F33.1 ; Insomnia G47.00 ; Restless legs G25.81 ; Essential hypertension I10 and Pure hypercholesterolemia E78.00 [place] [id number] [place] [address] August, Acute intractable tension-type headache G44.201 [facility] [id number] [place] [address] Jul, Left wrist pain M25.532 and Strain of left wrist, initial encounter S66.912A [place] [id number] [place] [address] 14 May, 2016 Gastroesophageal reflux disease with esophagitis K21.0 and Anxiety F41.9 [place] [id number] [place] [address] 13 May, 2016 Major depressive disorder, recurrent episode, moderate with anxious distress F33.1 ; COPD (chronic obstructive pulmonary disease) J44.9 ; Restless legs G25.81 ; Insomnia G47.00 ; Essential hypertension I10 ; Anxiety F41.9 ; Constipation due to outlet dysfunction K59.02 ; Torsion of intestine, bowel or colon K56.2 ; Hypercholesterolemia E78.00 and Gastroesophageal reflux disease with esophagitis K21.0 [place] [id number] [place] [address] 07 Feb, 2016 [place] [id number] [place] [address] 20 Dec, 2015 Essential hypertension I10 ; Depression F32.9 ; Anxiety F41.9 ; Constipation due to outlet dysfunction K59.02 ; Torsion of intestine, bowel or colon K56.2 ; COPD (chronic obstructive pulmonary disease) J44.9 ; Insomnia G47.00 ; Restless legs G25.81 and Gastroesophageal reflux disease with esophagitis K21.0 [place] [id number] [place] [address] 08 Dec, 2015 Essential hypertension I10 ; Major depressive disorder, recurrent episode, moderate with anxious distress F33.1 ; COPD (chronic obstructive pulmonary disease) J44.9 ; Restless legs G25.81 ; Insomnia G47.00 ; Constipation due to outlet dysfunction K59.02 and Gastroesophageal reflux disease without esophagitis K21.9 [place] [id number] [place] [address] 07 Dec, 2015 Major depressive disorder, recurrent episode, moderate with anxious distress F33.1 [place] [id number] [place] [address] Sep, [place] [id number] [place] [address] 23 Sep, 2015 Nausea R11.0 [place] [id number] [place] [address] 15 Sep, 2015 Lower abdominal pain R10.30 ; COPD (chronic obstructive pulmonary disease) J44.9 ; Restless legs G25.81 ; Essential hypertension I10 ; Depression F32.9 ; Other chronic pain G89.29 ; Lumbago with sciatica, unspecified side M54.40 and Primary insomnia F51.01 [facility] [id number] [place] [address] August, [place] [address] [address] August, COPD (chronic obstructive pulmonary disease) J44.9 ; Insomnia G47.00 ; Depression F32.9 and Constipation due to outlet dysfunction K59.02 [place] [address] [address] August, [place] [address] [address] August, [place] [address] [address] August, Nausea & vomiting R11.2 [place] [address] [address] Jun, [place] [address] [address] Jun, Unspecified abdominal pain R10.9 ; Depression, major, recurrent, moderate 296.32 ; COPD (chronic obstructive pulmonary disease) J44.9 ; Restless legs G25.81 ; Insomnia G47.00 ; Intestinal abscess K63.0 ; HTN (hypertension) I10 and Hypercholesteremia E78.0 [place] [id number] [place] [address] Jun, Intestinal abscess K63.0 [place] [id number] [place] [address] May, [place] [address] [address] May, [place] [id number] [place] [address] May, Unspecified abdominal pain R10.9 [place] [address] [place] [address] [id number] [place] [address] May, Depression, major, recurrent, moderate 296.32 ; COPD (chronic obstructive pulmonary disease) J44.9 ; Restless legs G25.81 ; Insomnia G47.00 ; Depression F32.9 ; HTN (hypertension) I10 and Hypercholesterolemia E78.0 [facility] [address] [address] Apr, [place] [address] [address] Mar, Cellulitis L03.[address] [address] Feb, Recurrent major depression-severe F33.[address] [address] Feb, Hyperlipemia E78.5 and High blood pressure I10 [place] [address] [address] Feb, COPD (chronic obstructive pulmonary disease) J44.9 ; Restless legs G25.81 ; Insomnia G47.00 ; Depression F32.9 and HTN (hypertension) I10 [place] [address] [address] Jan, [place] [address] [address] Jan, Generalized anxiety disorder F41.1 and Recurrent major depression- severe F33.[address] [address] Jan, Bronchitis J40 [address] [address] Jan, Shoulder pain, right M25.511 and Low back pain M54.[address] [address] Jan, [facility] [address], [place] [address] Oct, [facility] [id number] [place] [address] Oct, Generalized anxiety disorder 300.02 and Depression, major, severe recurrence 296.33 [facility] [id number] [place] [address] Oct, [facility] [id number] [place] [address] Oct, Depression, major, recurrent, moderate 296.32 [facility] [id number] [place] [address] August, [facility] [id number] [place] [address] Jul, [facility] [id number] [place] [address] Jul, [facility] [id number] [place] [address] Jun, [facility] [id number] [place] [address] Jun, [facility] [address], [place] [address] May, [facility] [id number] [place] [address] May, [facility] [address], [place] [address] May, [facility] [id number] [place] [address] May, [facility] [address], [place] [address] May, [facility] [address] [place] [address] May, 2014 [facility] [place] [facility] [address] [id number] [place] [address] May, 2014 [facility] [place] [facility] [address] [id number] [place] [address] May, 2014 [facility] [place] [facility] [address] [id number] [place] [address] May, 2014 [facility] [place] [facility] [address] [id number] [place] [address] May, 2014 [facility] [place] [facility] [address] [id number] [place] [address] May, 2014 [facility] [place] [facility] [address] [id number] [place] [address] May, 2014 [facility] [place] [facility] [address] [facility] [id number] [place] [address] Apr, [facility] [place] [facility] [address] [id number] [place] [address] Apr, [facility] [place] [facility] [address] [id number] [place] [address] Apr, [facility] [place] [facility] [address] [facility] [id number] [place] [address] Apr, [facility] [place] [facility] [address] [id number] [place] [address] Apr, [facility] [place] [facility] [address] [id number], [place] [address] Apr, [facility] [place] [facility] [address] [id number], [place] [address] Apr, [facility] [place] [facility] [address] [id number], [place] [address] Apr, [facility] [place] [facility] [address] [facility] [id number], [place] [address] Apr, [facility] [place] [facility] [address] [id number] [place] [address] Apr, [facility] [place] [facility] [address] [id number] [place] [address] Mar, [facility] [place] [facility] [address] [id number] [place] [address] Mar, [facility] [place] [facility] [address] [id number] [place] [address] Mar, [facility] [place] [facility] [address] [id number] [place] [address] Mar, [facility] [place] [facility] [address] [id number] [place] [address] Mar, [facility] [place] [facility] [address] [id number] [place] [address] Feb, [facility] [place] [facility] [address] [id number] [place] [address] Feb, [facility] [place] [facility] [address] [id number] [place] [address] Dec, [facility] [place] [facility] [address] [id number] [place] [address] Dec, [facility] [place] [facility] [address] [id number] [place] [address] Nov, [facility] [place] [facility] [address] [id number] [place] [address] Nov, [facility] [place] [facility] [address] [id number] [place] [address] Nov, [facility] [place] [facility] [address] [id number] [place] [address] Nov, [facility] [place] [facility] [address] [id number] [place] [address] Oct, [facility] [place] [facility] [address] [id number] [place] [address] Oct, [facility] [place] [facility] [address] [id number] [place] [address] Sep, [facility] [place] [facility] [address] [id number] [place] [address] Sep, [facility] [place] [facility] [address] [id number] [place] [address] August, [facility] [place] [facility] [address] [id number] [place] [address] August, [facility] [place] [facility] [address] [id number] [place] [address] August, [facility] [place] [facility] [address] [id number] [place] [address] August, [facility] [place] [facility] [address] [id number] [place] [address] Jul, [facility] [place] [facility] [address] [id number] [place] [address] Jul, [facility] [place] [facility] [address] [id number] [place] [address] Jun, [facility] [place] [facility] [address] [id number] [place] [address] Jun, [facility] [place] [facility] [address] [id number] [place] [address] May, [facility] [place] [facility] [address] [id number] [place] [address] May, [facility] [place] [facility] [address] [id number] [place] [address] May, [facility] [place] [facility] [address] [id number] [place] [address] May, [facility] [place] [facility] [address] [id number] [place] [address] May, [facility] [place] [facility] [address] [id number] [place] [address] May, [facility] [place] [facility] [address] [id number] [place] [address] May, [facility] [place] [facility] [address] [id number] [place] [address] Apr, [facility] [place] [facility] [address] [id number] [place] [address] Apr, [facility] [place] [facility] [address] [id number] [place] [address] Apr, [facility] [place] [facility] [address] [id number] [place] [address] Apr, [facility] [place] [facility] [address] [id number] [place] [address] Apr, [facility] [place] [facility] [address] [id number] [place] [address] Apr, [facility] [place] [facility] [address] [id number] [place] [address] Apr, [facility] [place] [facility] [address] [id number] [place] [address] Apr, [facility] [place] [facility] [address] [id number] [place] [address] Apr, [facility] [place] [facility] [address] [id number] [place] [address] Apr, [facility] [place] [facility] [address] [id number] [place] [address] Mar, [facility] [place] [facility] [address] [id number] [place] [address] Mar, [facility] [place] [facility] [address] [id number] [place] [address] Mar, [facility] [place] [facility] [address] [id number] [place] [address] Mar, [facility] [place] [facility] [address] [id number] [place] [address] Feb, [facility] [place] [facility] [address] [id number] [place] [address] Feb, [facility] [place] [facility] [address] [id number] [place] [address] Feb, [facility] [place] [facility] [address] [id number] [place] [address] Feb, [facility] [place] [facility] [address] [id number] [place] [address] Feb, [facility] [place] [facility] [address] [id number] [place] [address] Feb, [facility] [place] [facility] [address] [id number] [place] [address] Jan, [facility] [place] [facility] [address] [id number] [place] [address] Jan, [facility] [place] [facility] [address] [id number] [place] [address] Dec, [facility] [place] [facility] [address] [id number], [place] [address] Dec, [facility] [place] [facility] [address] [id number], [place] [address] Nov, [facility] [place] [facility] [address] [id number], [place] [address] Nov, [facility] [place] [facility] [address] [id number] [place] [address] Oct, [facility] [place] [facility] [address] [id number], [place] [address] Sep, [facility] [place] [facility] [address] [id number], [place] [address] August, [facility] [place] [facility] [address] [id number] [place] [address] 30 Jul, 2012 [facility] [address] [id number] [place] [address] 14 Jul, 2012 [facility] [place] [facility] [address] [id number] [place] [address] 10 Jul, 2012 [facility] [address] [id number] [place] [address] 05 Jul, 2012 [facility] [place] [facility] [address] [id number] [place] [address] 05 Jul, 2012 [facility] [place] [facility] [address] [id number] [place] [address] Jun, [facility] [place] [facility] [address] [id number] [place] [address] May, [facility] [address] [id number] [place] [address] Apr, [facility] [address] [id number] [place] [address] Mar, [facility] [place] [facility] [address] [id number] [place] [address] Mar, [facility] [place] [facility] [address] [facility] [id number] [place] [address] Mar, [facility] [place] [facility] [address] [id number] [place] [address] Jan, [facility] [place] [facility] [address] [id number] [place] [address] Jan, [facility] [place] [facility] [address] [id number] [place] [address] Jan, [facility] [place] [facility] [address] [facility] [id number] [place] [address] Jan, [facility] [place] [facility] [address] [id number] [place] [address] Dec, [facility] [place] [facility] [address] [id number] [place] [address] Dec, [facility] [place] [facility] [address] [id number] [place] [address] Nov, [facility] [place] [facility] [address] [id number] [place] [address] Nov, [facility] [place] [facility] [address] [id number] [place] [address] Nov, [facility] [address] [id number] [place] [address] Nov, [facility] [place] [facility] [address] [id number] [place] [address] Nov, [facility] [address] [id number] [place] [address] Oct, [facility] [address] [id number] [place] [address] Oct, [facility] [place] [facility] [address] [id number] [place] [address] Oct, [facility] [place] [facility] [address] [id number] [place] [address] Sep, [facility] [place] [facility] [address] [id number] [place] [address] August, [facility] [place] [facility] [address] [id number] [place] [address] Jul, [facility] [place] [facility] [address] [id number] [place] [address] Jul, [facility] [place] [facility] [address] [id number] [place] [address] Jul, [facility] [place] [facility] [address] [id number] [place] [address] Jul, [facility] [place] [facility] [address] [id number] [place] [address] 29 Jun, 2011 [facility] [address] [id number] [place] [address] 28 Jun, 2011 [facility] [place] [facility] [address] [id number] [place] [address] 23 Jun, 2011 [facility] [place] [facility] [address] [id number] [place] [address] 21 Jun, 2011 [facility] [place] [facility] [address] [id number] [place] [address] 15 Jun, 2011 [facility] [place] [facility] [address] [id number] [place] [address] 28 May, 2011 [facility] [place] [facility] [address] [id number] [place] [address] 28 May, 2011 [facility] [address] [facility] [id number] [place] [address] 27 May, 2011 [facility] [place] [facility] [address] [id number] [place] [address] 24 May, 2011 [facility] [place] [facility] [address] [facility] [id number] [place] [address] Apr, [facility] [place] [facility] [address] [facility] [id number] [place] [address] Mar, [facility] [place] [facility] [address] [id number] [place] [address] Mar, [facility] [place] [facility] [address] [id number] [place] [address] 17 Jun, 2010 [facility] [place] [facility] [address] [id number] [place] [address] 08 Feb, 2010 [facility] [place] [facility] [address] [id number] [place] [address] 26 Jan, 2010 [facility] [place] [facility] [address] [facility] [id number] [place] [address] 20 Jan, 2010 [facility] [place] [facility] [address] [id number], [place] [address] Jan, [facility] [address] [id number] [address] Dec, [facility] [id number], [place] [address] May, [facility] [address] [id number] [address] Feb, [facility] [address] [id number], [place] [address] Feb, [facility] [address] [id number] [address] Feb, IMMUNIZATIONS No Known Immunizations SOCIAL HISTORY Never Assessed REASON FOR VISIT Requests return call PLAN OF CARE VITAL SIGNS MEDICATIONS No [...]
--- OUTSIDE RECORDS SUMMARY | 2018-11-21 21:57 | XMS REPORT ---
Author Author LUIS WHITE Organization [facility] Address [address] [place] [address] Care Team Providers [employer] Name Role Phone CINDYLUIS Unavailable PROBLEMS Type Condition ICD9-CM Code IJP22-IA Code Onset Dates Condition Status SNOMED Code Problem Generalized anxiety disorder F41.1 Active 46087495 Problem Hypercholesterolemia E78.00 Active 32358716 Problem Body mass index (BMI) of 32.0-32.9 in adult Z68.32 Active 817968594 Problem Chronic obstructive pulmonary disease, unspecified COPD type J44.9 Active 71891692 Problem Insomnia G47.00 Active 603559600 Problem Other depression F32.89 Active 472506270 Problem Facet arthropathy, lumbar M46.96 Active 757592761 Problem Lumbar spondylosis M47.816 Active 585473543 Problem Lumbago with sciatica, unspecified side M54.40 Active 60033710 Problem Other obesity due to excess calories E66.09 Active 999571738 Problem COPD exacerbation J44.1 Active 761222310 Problem Other chronic pain G89.29 Active 32798141 Problem Restless legs G25.81 Active 57137663 Problem Constipation due to outlet dysfunction K59.02 Active 05699410 Problem COPD (chronic obstructive pulmonary disease) J44.9 Active 09877513 Problem Depression F32.9 Active 74016931 Problem Anxiety F41.9 Active 90987267 Problem Gastroesophageal reflux disease with esophagitis K21.0 Active 376733445 Problem Essential hypertension I10 Active 46910559 Problem Severe episode of recurrent major depressive disorder, without psychotic features F33.2 Active 10918409 Problem Major depressive disorder, recurrent episode, moderate with anxious distress F33.1 Active 959526485 Problem Psychophysiological insomnia F51.04 Active 139259021 ALLERGIES No Known Allergies ENCOUNTERS Encounter Location Date Diagnosis [facility] [address] [facility] [id number] [address] 13 Dec, 2017 Fever, unspecified fever cause R50.9 ; Nausea and vomiting, intractability of vomiting not specified, unspecified vomiting type R11.2 ; Wheezing on auscultation R06.2 ; COPD (chronic obstructive pulmonary disease) J44.9 and Acute maxillary sinusitis, recurrence not specified J01.00 [place] [address] [id number] [place] [address] 07 Dec, 2017 Edema of lower extremity R60.0 [place] [address] [address] [id number] [place] [address] Dec, [place] [address] [address] Nov, Essential hypertension I10 [place] [id number] [place] [address] Nov, [place] [address] [id number] [place] [address] Nov, Severe episode of recurrent major depressive disorder, without psychotic features F33.2 ; Generalized anxiety disorder F41.1 and Psychophysiological insomnia F51.04 [place] [id number] [place] [address] Nov, COPD (chronic obstructive pulmonary disease) J44.9 ; Essential hypertension I10 ; Lumbar spondylosis M47.816 ; Generalized anxiety disorder F41.1 ; Rash and nonspecific skin eruption R21 ; Pain in joints of right hand M25.541 ; Pain in joints of left hand M25.542 and Hypercholesterolemia E78.00 [place] [address] [id number] [place] [address] Nov, Rash and nonspecific skin eruption R21 and Non-intractable vomiting with nausea, unspecified vomiting type R11.2 [place] [address] [id number] [place] [address] Oct, [place] [id number] [place] [address] Sep, Pain aggravated by standing R52 [facility] [id number] [place] [address] Sep, Other depression F32.89 [place] [address] [id number] [place] [address] Sep, Chronic obstructive pulmonary disease, unspecified COPD type J44.9 ; Pain aggravated by standing R52 ; Other depression F32.89 ; Major depressive disorder, recurrent episode, moderate with anxious distress F33.1 ; Restless legs G25.81 ; Insomnia G47.00 ; Gastroesophageal reflux disease with esophagitis K21.0 ; Essential hypertension I10 ; Generalized anxiety disorder F41.1 and Hypercholesterolemia E78.00 [place] [address] [id number] [place] [address] Jul, Fever, unspecified fever cause R50.9 and Cough R05 [place] [address] [address] Jul, [place] [address] [address] [id number] [place] [address] Jul, Gastroesophageal reflux disease with esophagitis K21.0 [place] [address] [id number] [place] [address] Jul, [place] [id number] [place] [address] Jun, COPD (chronic obstructive pulmonary disease) J44.9 ; Restless legs G25.81 ; Insomnia G47.00 ; Essential hypertension I10 ; Major depressive disorder, recurrent episode, moderate with anxious distress F33.1 ; Gastroesophageal reflux disease with esophagitis K21.0 ; Constipation due to outlet dysfunction K59.02 ; Hypercholesterolemia E78.00 ; Other chronic pain G89.29 and Generalized abdominal pain R10.84 [facility] [id number] [place] [address] Jun, [place] [address] [address] Jun, Acute recurrent sinusitis, unspecified location J01.91 and COPD exacerbation J44.1 [place] [id number] [place] [address] Jun, Lumbago with sciatica, unspecified side M54.40 [place] [address] [address] [id number] [address] May, [place] [address] [address] [id number] [place] [address] May, Severe episode of recurrent major depressive disorder, without psychotic features F33.2 [place] [address] [address] [id number] [place] [address] Apr, COPD (chronic obstructive pulmonary disease) J44.9 [...] of 32.0-32.9 in adult Z68.32 [place] [id number] [place] [address] Apr, Severe episode of recurrent major depressive disorder, without psychotic features F33.2 [place] [id number] [place] [address] Feb, Severe episode of recurrent major depressive disorder, without psychotic features F33.2 and Restless legs G25.81 [place] [address] [place] [address] Feb, Severe episode of recurrent major depressive disorder, without psychotic features F33.2 ; Generalized anxiety disorder F41.1 and Psychophysiological insomnia F51.04 [place] [address] [place] [address] Dec, Severe episode of recurrent major depressive disorder, without psychotic features F33.2 ; Generalized anxiety disorder F41.1 and Psychophysiological insomnia F51.04 [place] [address] [address] [id number] [place] [address] Nov, Severe episode of recurrent major depressive disorder, without psychotic features F33.2 ; Generalized anxiety disorder F41.1 and Psychophysiological insomnia F51.04 [place] [address] [address] [id number] [place] [address] Nov, [place] [address] [address] Nov, Depression F32.9 [place] [address] [address] Nov, Depression F32.9 ; Insomnia G47.00 and Anxiety F41.9 [place] [address] [address] August, COPD (chronic obstructive pulmonary disease) J44.9 ; Depression F32.9 ; Anxiety F41.9 ; Major depressive disorder, recurrent episode, moderate with anxious distress F33.1 ; Insomnia G47.00 ; Restless legs G25.81 ; Essential hypertension I10 and Pure hypercholesterolemia E78.00 [place] [address] [address] [id number] [place] [address] August, Acute intractable tension-type headache G44.201 [facility] [id number] [place] [address] Jul, Left wrist pain M25.532 and Strain of left wrist, initial encounter S66.912A [place] [address] [address] [id number] [place] [address] 14 May, 2016 Gastroesophageal reflux disease with esophagitis K21.0 and Anxiety F41.9 [facility] [address] [id number] [place] [address] 13 May, 2016 Major depressive disorder, recurrent episode, moderate with anxious distress F33.1 ; COPD (chronic obstructive pulmonary disease) J44.9 ; Restless legs G25.81 ; Insomnia G47.00 ; Essential hypertension I10 ; Anxiety F41.9 ; Constipation due to outlet dysfunction K59.02 ; Torsion of intestine, bowel or colon K56.2 ; Hypercholesterolemia E78.00 and Gastroesophageal reflux disease with esophagitis K21.0 [place] [address] [address] [id number] [place] [address] 07 Feb, 2016 [place] [address] [address] 20 Dec, 2015 Essential hypertension I10 ; Depression F32.9 ; Anxiety F41.9 ; Constipation due to outlet dysfunction K59.02 ; Torsion of intestine, bowel or colon K56.2 ; COPD (chronic obstructive pulmonary disease) J44.9 ; Insomnia G47.00 ; Restless legs G25.81 and Gastroesophageal reflux disease with esophagitis K21.0 [place] [id number] [place] [address] 08 Dec, 2015 Essential hypertension I10 ; Major depressive disorder, recurrent episode, moderate with anxious distress F33.1 ; COPD (chronic obstructive pulmonary disease) J44.9 ; Restless legs G25.81 ; Insomnia G47.00 ; Constipation due to outlet dysfunction K59.02 and Gastroesophageal reflux disease without esophagitis K21.9 [place] [address] [address] [id number] [place] [address] 07 Dec, 2015 Major depressive disorder, recurrent episode, moderate with anxious distress F33.1 [place] [address] [address] [id number] [place] [address] Sep, [place] [address] [place] [address] [id number] [place] [address] 23 Sep, 2015 Nausea R11.0 [place] [address] [address] [id number] [place] [address] 15 Sep, 2015 Lower abdominal pain R10.30 ; COPD (chronic obstructive pulmonary disease) J44.9 ; Restless legs G25.81 ; Essential hypertension I10 ; Depression F32.9 ; Other chronic pain G89.29 ; Lumbago with sciatica, unspecified side M54.40 and Primary insomnia F51.01 [place] [address] [address] [id number] [place] [address] August, [place] [address] [address] [id number] [place] [address] August, COPD (chronic obstructive pulmonary disease) J44.9 ; Insomnia G47.00 ; Depression F32.9 and Constipation due to outlet dysfunction K59.02 [place] [address] [id number] [place] [address] August, [place] [address] [address] August, [place] [address] [address] August, Nausea & vomiting R11.2 [place] [address] [address] Jun, [place] [address] [place] [id number] [place] [address] Jun, Unspecified abdominal pain R10.9 ; Depression, major, recurrent, moderate 296.32 ; COPD (chronic obstructive pulmonary disease) J44.9 ; Restless legs G25.81 ; Insomnia G47.00 ; Intestinal abscess K63.0 ; HTN (hypertension) I10 and Hypercholesteremia E78.0 [place] [address] [id number] [place] [address] Jun, Intestinal abscess K63.0 [place] [address] [place] [id number] [place] [address] May, [place] [address] [place] [id number] [place] [address] May, [place] [address] [place] [id number] [place] [address] May, Unspecified abdominal pain R10.9 [place] [address] [address] 08 May, 2015 Depression, major, recurrent, moderate 296.32 ; COPD (chronic obstructive pulmonary disease) J44.9 ; Restless legs G25.81 ; Insomnia G47.00 ; Depression F32.9 ; HTN (hypertension) I10 and Hypercholesterolemia E78.[address] [address] Apr, [place] [address] [address] Mar, Cellulitis L03.[address] [address] Feb, Recurrent major depression-severe F33.[address] [address] Feb, Hyperlipemia E78.5 and High blood pressure I10 [address] [address] Feb, COPD (chronic obstructive pulmonary disease) J44.9 ; Restless legs G25.81 ; Insomnia G47.00 ; Depression F32.9 and HTN (hypertension) I10 [address] [address] Jan, [address] [address] Jan, Generalized anxiety disorder F41.1 and Recurrent major depression- severe F33.[address] [address] Jan, Bronchitis J40 [address] [address] Jan, Shoulder pain, right M25.511 and Low back pain M54.[address] [address] Jan, [facility] [address] [address] Oct, [facility] [address] [id number] [place] [address] Oct, Generalized anxiety disorder 300.02 and Depression, major, severe recurrence 296.33 [facility] [address] [id number] [place] [address] Oct, [facility] [id number] [place] [address] Oct, Depression, major, recurrent, moderate 296.32 [facility] [id number] [place] [address] August, [facility] [id number] [place] [address] Jul, [facility] [address] [id number] [place] [address] Jul, [facility] [id number] [place] [address] Jun, [facility] [address] [id number] [place] [address] Jun, [facility] [id number] [place] [address] May, [facility] [id number] [place] [address] May, [facility] [id number] [place] [address] May, [facility] [address] [id number] [place] [address] May, [facility] [id number] [place] [address] May, [facility] [id number] [place] [address] May, 2014 [facility] [place] [facility] [address] [id number] [place] [address] May, 2014 [facility] [place] [facility] [address] [id number] [place] [address] May, 2014 [facility] [place] [facility] [address] [id number] [place] [address] May, 2014 [facility] [place] [facility] [address] [id number] [place] [address] May, 2014 [facility] [place] [facility] [address] [id number] [place] [address] May, 2014 [facility] [place] [facility] [address] [id number] [place] [address] May, 2014 [facility] [place] [facility] [address] [id number] [place] [address] Apr, [facility] [place] [facility] [address] [id number] [place] [address] Apr, [facility] [place] [facility] [address] [id number] [place] [address] Apr, [facility] [place] [facility] [address] [id number] [place] [address] Apr, [facility] [place] [facility] [address] [id number] [place] [address] Apr, [facility] [place] [facility] [address] [id number] [place] [address] Apr, [facility] [place] [facility] [address] [id number] [place] [address] Apr, [facility] [place] [facility] [address] [id number] [place] [address] Apr, [facility] [place] [facility] [address] [id number] [place] [address] Apr, [facility] [place] [facility] [address] [id number] [place] [address] Apr, [facility] [place] [facility] [address] [id number] [place] [address] Mar, [facility] [place] [facility] [address] [id number] [place] [address] Mar, [facility] [place] [facility] [address] [id number] [place] [address] Mar, [facility] [place] [facility] [address] [id number] [place] [address] Mar, [facility] [place] [facility] [address] [id number] [place] [address] Mar, [facility] [place] [facility] [address] [id number] [place] [address] Feb, [facility] [place] [facility] [address] [id number] [place] [address] Feb, [facility] [place] [facility] [address] [id number] [place] [address] Dec, [facility] [place] [facility] [address] [id number] [place] [address] Dec, [facility] [place] [facility] [address] [id number] [place] [address] Nov, [facility] [place] [facility] [address] [id number] [place] [address] Nov, [facility] [place] [facility] [address] [id number] [place] [address] Nov, [facility] [place] [facility] [address] [id number] [place] [address] Nov, [facility] [place] [facility] [address] [id number] [place] [address] Oct, [facility] [place] [facility] [address] [id number] [address] Oct, [facility] [place] [facility] [address] [id number] [place] [address] Sep, [facility] [place] [facility] [address] [id number] [place] [address] Sep, [facility] [place] [facility] [address] [id number] [place] [address] August, [facility] [place] [facility] [address] [id number] [place] [address] August, [facility] [place] [facility] [address] [id number] [place] [address] August, [facility] [place] [facility] [address] [id number] [place] [address] August, [facility] [place] [facility] [address] [id number] [place] [address] Jul, [facility] [place] [facility] [address] [id number] [place] [address] Jul, [facility] [place] [facility] [address] [id number] [place] [address] Jun, [facility] [place] [facility] [address] [id number] [place] [address] Jun, [facility] [place] [facility] [address] [id number] [place] [address] May, [facility] [place] [facility] [address] [id number] [place] [address] May, [facility] [place] [facility] [address] [id number] [place] [address] May, [facility] [place] [facility] [address] [id number] [place] [address] May, [facility] [place] [facility] [address] [id number] [place] [address] May, [facility] [place] [facility] [address] [id number] [place] [address] May, [facility] [place] [facility] [address] [id number] [place] [address] May, [facility] [place] [facility] [address] [id number] [place] [address] Apr, [facility] [place] [facility] [address] [id number] [place] [address] Apr, [facility] [address] [id number] [place] [address] Apr, [facility] [place] [facility] [address] [id number] [place] [address] Apr, [facility] [address] [id number] [place] [address] Apr, [facility] [address] [id number] [place] [address] Apr, [facility] [place] [facility] [address] [id number] [place] [address] Apr, [facility] [place] [facility] [address] [id number] [place] [address] Apr, [facility] [place] [facility] [address] [id number] [place] [address] Apr, [facility] [place] [facility] [address] [id number] [place] [address] Apr, [facility] [place] [facility] [address] [id number] [place] [address] Mar, [facility] [place] [facility] [address] [id number] [place] [address] Mar, [facility] [place] [facility] [address] [id number] [place] [address] 16 Mar, 2013 [facility] [place] [facility] [address] [id number] [place] [address] Mar, [facility] [place] [facility] [address] [id number] [place] [address] Feb, [facility] [place] [facility] [address] [id number] [place] [address] Feb, [facility] [place] [facility] [address] [id number] [place] [address] Feb, [facility] [place] [facility] [address] [id number] [place] [address] Feb, [facility] [place] [facility] [address] [id number] [place] [address] Feb, [facility] [place] [facility] [address] [id number] [place] [address] Feb, [facility] [place] [facility] [address] [id number] [place] [address] Jan, [facility] [place] [facility] [address] [id number] [place] [address] Jan, [facility] [place] [facility] [address] [id number] [place] [address] Dec, [facility] [place] [facility] [address] [id number] [place] [address] Dec, [facility] [place] [facility] [address] [id number] [place] [address] Nov, [facility] [place] [facility] [address] [id number] [place] [address] Nov, [facility] [place] [facility] [address] [id number] [place] [address] Oct, [facility] [place] [facility] [address] [id number] [place] [address] Sep, [facility] [place] [facility] [address] [id number] [place] [address] August, [facility] [place] [facility] [address] [id number] [place] [address] 30 Jul, 2012 [facility] [address] [id number] [place] [address] 14 Jul, 2012 [facility] [place] [facility] [address] [id number] [place] [address] 10 Jul, 2012 [facility] [address] [id number] [place] [address] 05 Jul, 2012 [facility] [place] [facility] [address] [id number] [place] [address] 05 Jul, 2012 [facility] [address] [id number] [place] [address] Jun, [facility] [address] [id number] [place] [address] May, [facility] [address] [id number] [place] [address] Apr, [facility] [address] [id number] [place] [address] Mar, [facility] [address] [id number] [place] [address] Mar, [facility] [address] [facility] [id number] [place] [address] Mar, [facility] [place] [facility] [address] [id number] [place] [address] Jan, [facility] [address] [id number] [place] [address] Jan, [facility] [place] [facility] [address] [id number] [place] [address] Jan, [facility] [place] [facility] [address] [id number] [place] [address] Jan, [facility] [place] [facility] [address] [id number] [place] [address] Dec, [facility] [place] [facility] [address] [id number] [place] [address] Dec, [facility] [place] [facility] [address] [id number] [place] [address] Nov, [facility] [place] [facility] [address] [id number] [place] [address] Nov, [facility] [place] [facility] [address] [id number] [place] [address] Nov, [facility] [place] [facility] [address] [id number] [place] [address] Nov, [facility] [place] [facility] [address] [id number] [place] [address] Nov, [facility] [place] [facility] [address] [id number] [place] [address] Oct, [facility] [place] [facility] [address] [id number] [place] [address] Oct, [facility] [place] [facility] [address] [id number] [place] [address] Oct, [facility] [place] [facility] [address] [id number] [place] [address] Sep, [facility] [place] [facility] [address] [id number] [place] [address] August, [facility] [place] [facility] [address] [id number] [place] [address] Jul, [facility] [facility] [address] [id number] [place] [address] Jul, [facility] [place] [facility] [address] [id number] [place] [address] Jul, [facility] [place] [facility] [address] [id number] [place] [address] Jul, [facility] [place] [facility] [address] [id number] [place] [address] 29 Jun, 2011 [facility] [address] [id number] [place] [address] 28 Jun, 2011 [facility] [place] [facility] [address] [id number] [place] [address] 23 Jun, 2011 [facility] [place] [facility] [address] [id number] [place] [address] 21 Jun, 2011 [facility] [place] [facility] [address] [id number] [place] [address] 15 Jun, 2011 [facility] [place] [facility] [address] [id number] [place] [address] 28 May, 2011 [facility] [place] [facility] [address] [id number] [place] [address] 28 May, 2011 [facility] [place] [facility] [address] [id number] [place] [address] 27 May, 2011 [facility] [place] [facility] [address] [id number] [place] [address] 24 May, 2011 [facility] [place] [facility] [address] [id number] [place] [address] Apr, [facility] [place] [facility] [address] [id number] [place] [address] Mar, [facility] [place] [facility] [address] [id number] [place] [address] Mar, [facility] [place] [facility] [address] [id number] [place] [address] 17 Jun, 2010 [facility] [place] [facility] [address] [id number] [place] [address] 08 Feb, 2010 [facility] [place] [facility] [address] [id number] [place] [address] 26 Jan, 2010 [facility] [place] [facility] [address] [id number] [place] [address] Jan, [facility] [address] [facility] [place] [id number] [address] Jan, [facility] [address] [id number] [address] Dec, [facility] [address] [id number] [address] May, [facility] [id number] [address] Feb, [facility] [address] [id number] [address] Feb, [facility] [id number] [address] Feb, IMMUNIZATIONS No Known Immunizations SOCIAL HISTORY Never Assessed REASON FOR VISIT f/u PLAN OF CARE Activity Details Follow Up 4 Weeks Reason: f/u VITAL SIGNS Height 62 in 2017-12-16 Weight 186 lbs 2017-12-16 Heart Rate 102 bpm 2017-12-16 Respiratory Rate 18 2017-12-16 BMI 34.02 kg/m2 2017-12-16 Blood pressure systolic 148 mmHg 2017-12-16 Blood pressure diastolic 96 mmHg 2017-12-16 MEDICATIONS Medication Instructions Dosage Frequency Start Date End Date Duration Status Zofran 8 MG Orally Twice a day prn nausea 1 tablet Nov, 07 days Active Gabapentin 300 MG Orally Three times a day 1 capsule 8h May, 30 days Active MiraLax 17 gm/dose Orally Once a day prn 1 packet mixed with 8 ounces of fluid May, Apr, 12 months Active Triamcinolone Acetonide 0.1 % Externally Twice a day 1 application to affected area 12h Nov, 14 days Active Albuterol Sulfate 2.5 mg /3 mL (0.083 %) Inhalation every 4-6 hours as needed 1 Each by Inhalation route every 4 hours for cough and wheeze PRN for wheezing or cough; Jun, Active Klonopin 1 MG Orally Once a day as needed 1 tablet Nov, 30 days Active Losartan Potassium-HCTZ 50-12.5 MG Orally Once a day 2 tablets 24h Nov, 90 days Active Melatonin 3 MG Orally Once a day 1 tablet at bedtime as needed with food 24h Active Atorvastatin Calcium 10 mg Orally Once a day 1 tablet 24h 13 May, 2016 Active Remeron 45 MG Orally Once a day at bedtime 1 tablet Nov, 30 day(s) Active Omeprazole 20 mg Orally Once a day 1 capsule 24h Active Cymbalta 60 MG Orally twice a day 1 capsule 12h Nov, Active Dulera 100-5 mcg/actuation 2 puffs by Inhalation route 2 times per day 12h Jul, Active RESULTS No Results PROCEDURES No Known [...]
--- OUTSIDE RECORDS SUMMARY | 2018-11-21 21:57 | XMS REPORT ---
Author Author LOVELACETUSHAR Ryder Organization [facility] Address [address] [place] [address] Care Team Providers [facility] Associate Professor Name Role Phone LOVELACETUSHAR Rdyer Unavailable PROBLEMS Type Condition ICD9-CM Code SMP15-II Code Onset Dates Condition Status SNOMED Code Problem Generalized anxiety disorder F41.1 Active 60406716 Problem Hypercholesterolemia E78.00 Active 23834238 Problem Body mass index (BMI) of 32.0-32.9 in adult Z68.32 Active 733682780 Problem Chronic obstructive pulmonary disease, unspecified COPD type J44.9 Active 89157165 Problem Insomnia G47.00 Active 958970890 Problem Other depression F32.89 Active 293050412 Problem Facet arthropathy, lumbar M46.96 Active 211863925 Problem Lumbar spondylosis M47.816 Active 168566342 Problem Lumbago with sciatica, unspecified side M54.40 Active 41137514 Problem Other obesity due to excess calories E66.09 Active 621382761 Problem COPD exacerbation J44.1 Active 614119884 Problem Other chronic pain G89.29 Active 35199828 Problem Restless legs G25.81 Active 91858237 Problem Constipation due to outlet dysfunction K59.02 Active 69184657 Problem COPD (chronic obstructive pulmonary disease) J44.9 Active 18721791 Problem Depression F32.9 Active 06483608 Problem Anxiety F41.9 Active 08236131 Problem Gastroesophageal reflux disease with esophagitis K21.0 Active 600210531 Problem Essential hypertension I10 Active 67060405 Problem Severe episode of recurrent major depressive disorder, without psychotic features F33.2 Active 77337748 Problem Major depressive disorder, recurrent episode, moderate with anxious distress F33.1 Active 414008124 Problem Psychophysiological insomnia F51.04 Active 150853198 ALLERGIES No Information ENCOUNTERS Encounter Location Date Diagnosis [facility] [address] [facility] [id number] [address] Dec, [place] [address] [place] [id number] [place] [address] Dec, Fever, unspecified fever cause R50.9 ; Nausea and vomiting, intractability of vomiting not specified, unspecified vomiting type R11.2 ; Wheezing on auscultation R06.2 ; COPD (chronic obstructive pulmonary disease) J44.9 and Acute maxillary sinusitis, recurrence not specified J01.00 [place] [address] [address] Dec, Edema of lower extremity R60.[address] [address] Dec, [place] [address] [address] Nov, Essential hypertension I10 [address] [address] Nov, [place] [address] [address] Nov, Severe episode of recurrent major depressive disorder, without psychotic features F33.2 ; Generalized anxiety disorder F41.1 and Psychophysiological insomnia F51.04 [place] [id number] [place] [address] Nov, COPD (chronic obstructive pulmonary disease) J44.9 ; Essential hypertension I10 ; Lumbar spondylosis M47.816 ; Generalized anxiety disorder F41.1 ; Rash and nonspecific skin eruption R21 ; Pain in joints of right hand M25.541 ; Pain in joints of left hand M25.542 and Hypercholesterolemia E78.[address] [address] Nov, Rash and nonspecific skin eruption R21 and Non-intractable vomiting with nausea, unspecified vomiting type R11.2 [place] [id number] [place] [address] Oct, [place] [address] [place] [id number] [place] [address] Sep, Pain aggravated by standing R52 [place] [address] [address] Sep, Other depression F32.89 [place] [address] [address] Sep, Chronic obstructive pulmonary disease, unspecified COPD type J44.9 ; Pain aggravated by standing R52 ; Other depression F32.89 ; Major depressive disorder, recurrent episode, moderate with anxious distress F33.1 ; Restless legs G25.81 ; Insomnia G47.00 ; Gastroesophageal reflux disease with esophagitis K21.0 ; Essential hypertension I10 ; Generalized anxiety disorder F41.1 and Hypercholesterolemia E78.00 [place] [address] [address] Jul, Fever, unspecified fever cause R50.9 and Cough R05 [place] [address] [address] Jul, [place] [address] [address] Jul, Gastroesophageal reflux disease with esophagitis K21.0 [place] [address] [address] Jul, [place] [address] [address] Jun, COPD (chronic obstructive pulmonary disease) J44.9 ; Restless legs G25.81 ; Insomnia G47.00 ; Essential hypertension I10 ; Major depressive disorder, recurrent episode, moderate with anxious distress F33.1 ; Gastroesophageal reflux disease with esophagitis K21.0 ; Constipation due to outlet dysfunction K59.02 ; Hypercholesterolemia E78.00 ; Other chronic pain G89.29 and Generalized abdominal pain R10.84 [place] [address] [address] Jun, [place] [address] [place] [id number] [place] [address] Jun, Acute recurrent sinusitis, unspecified location J01.91 and COPD exacerbation J44.1 [place] [address] [place] [id number] [place] [address] Jun, Lumbago with sciatica, unspecified side M54.40 [place] [address] [address] May, [place] [address] [address] May, Severe episode of recurrent major depressive disorder, without psychotic features F33.2 [place] [address] [place] [id number] [place] [address] Apr, COPD (chronic obstructive pulmonary disease) J44.9 [...] index (BMI) of 32.0-32.9 in adult Z68.32 [place] [address] [place] [id number] [place] [address] Apr, Severe episode of recurrent major depressive disorder, without psychotic features F33.2 [place] [address] [place] [id number] [place] [address] Feb, Severe episode of recurrent major depressive disorder, without psychotic features F33.2 and Restless legs G25.81 [place] [address] [place] [id number] [place] [address] Feb, Severe episode of recurrent major depressive disorder, without psychotic features F33.2 ; Generalized anxiety disorder F41.1 and Psychophysiological insomnia F51.04 [place] [address] [place] [id number] [place] [address] Dec, Severe episode of recurrent major depressive disorder, without psychotic features F33.2 ; Generalized anxiety disorder F41.1 and Psychophysiological insomnia F51.04 [place] [address] [place] [address] Nov, Severe episode of recurrent major depressive disorder, without psychotic features F33.2 ; Generalized anxiety disorder F41.1 and Psychophysiological insomnia F51.04 [place] [address] [place] [id number] [place] [address] Nov, [place] [address] [place] [id number] [place] [address] Nov, Depression F32.9 [place] [address] [place] [id number] [place] [address] Nov, Depression F32.9 ; Insomnia G47.00 and Anxiety F41.9 [place] [id number] [place] [address] August, COPD (chronic obstructive pulmonary disease) J44.9 ; Depression F32.9 ; Anxiety F41.9 ; Major depressive disorder, recurrent episode, moderate with anxious distress F33.1 ; Insomnia G47.00 ; Restless legs G25.81 ; Essential hypertension I10 and Pure hypercholesterolemia E78.00 [place] [address] [place] [id number] [place] [address] August, Acute intractable tension-type headache G44.201 [facility] [address] [place] [id number] [place] [address] Jul, Left wrist pain M25.532 and Strain of left wrist, initial encounter S66.912A [place] [id number] [place] [address] May, Gastroesophageal reflux disease with esophagitis K21.0 and Anxiety F41.9 [place] [address] [place] [id number] [place] [address] May, Major depressive disorder, recurrent episode, moderate with anxious distress F33.1 ; COPD (chronic obstructive pulmonary disease) J44.9 ; Restless legs G25.81 ; Insomnia G47.00 ; Essential hypertension I10 ; Anxiety F41.9 ; Constipation due to outlet dysfunction K59.02 ; Torsion of intestine, bowel or colon K56.2 ; Hypercholesterolemia E78.00 and Gastroesophageal reflux disease with esophagitis K21.0 [place] [address] [place] [id number] [place] [address] Feb, [place] [address] [place] [id number] [place] [address] 20 Dec, 2015 Essential hypertension I10 ; Depression F32.9 ; Anxiety F41.9 ; Constipation due to outlet dysfunction K59.02 ; Torsion of intestine, bowel or colon K56.2 ; COPD (chronic obstructive pulmonary disease) J44.9 ; Insomnia G47.00 ; Restless legs G25.81 and Gastroesophageal reflux disease with esophagitis K21.0 [place] [address] [address] 08 Dec, 2015 Essential hypertension I10 ; Major depressive disorder, recurrent episode, moderate with anxious distress F33.1 ; COPD (chronic obstructive pulmonary disease) J44.9 ; Restless legs G25.81 ; Insomnia G47.00 ; Constipation due to outlet dysfunction K59.02 and Gastroesophageal reflux disease without esophagitis K21.9 [place] [address] [place] [id number] [place] [address] 07 Dec, 2015 Major depressive disorder, recurrent episode, moderate with anxious distress F33.1 [place] [address] [place] [id number] [place] [address] Sep, [place] [id number] [place] [address] 23 Sep, 2015 Nausea R11.0 [place] [address] [place] [id number] [place] [address] 15 Sep, 2015 Lower abdominal pain R10.30 ; COPD (chronic obstructive pulmonary disease) J44.9 ; Restless legs G25.81 ; Essential hypertension I10 ; Depression F32.9 ; Other chronic pain G89.29 ; Lumbago with sciatica, unspecified side M54.40 and Primary insomnia F51.01 [place] [address] [place] [id number] [place] [address] August, [place] [address] [place] [id number] [place] [address] August, COPD (chronic obstructive pulmonary disease) J44.9 ; Insomnia G47.00 ; Depression F32.9 and Constipation due to outlet dysfunction K59.02 [place] [address] [place] [id number] [place] [address] August, [place] [address] [address] August, [place] [address] [address] August, Nausea & vomiting R11.2 [place] [address] [address] Jun, [place] [address] [address] Jun, Unspecified abdominal pain R10.9 ; Depression, major, recurrent, moderate 296.32 ; COPD (chronic obstructive pulmonary disease) J44.9 ; Restless legs G25.81 ; Insomnia G47.00 ; Intestinal abscess K63.0 ; HTN (hypertension) I10 and Hypercholesteremia E78.0 [place] [address] [place] [id number] [place] [address] Jun, Intestinal abscess K63.0 [place] [address] [address] May, [place] [address] [place] [id number] [place] [address] May, [place] [address] [address] May, Unspecified abdominal pain R10.9 [place] [address] [place] [id number] [place] [address] May, Depression, major, recurrent, moderate 296.32 ; COPD (chronic obstructive pulmonary disease) J44.9 ; Restless legs G25.81 ; Insomnia G47.00 ; Depression F32.9 ; HTN (hypertension) I10 and Hypercholesterolemia E78.0 [place] [address] [address] Apr, [place] [address] [address] Mar, Cellulitis L03.[address] [address] Feb, Recurrent major depression-severe F33.[address] [address] Feb, Hyperlipemia E78.5 and High blood pressure I10 [address] [address] Feb, COPD (chronic obstructive pulmonary disease) J44.9 ; Restless legs G25.81 ; Insomnia G47.00 ; Depression F32.9 and HTN (hypertension) I10 [place] [address] [place] [id number] [place] [address] Jan, [place] [address] [address] Jan, Generalized anxiety disorder F41.1 and Recurrent major depression- severe F33.[address] [address] Jan, Bronchitis J40 [place] [address] [place] [id number] [place] [address] Jan, Shoulder pain, right M25.511 and Low back pain M54.5 [facility] [address] [address] Jan, [facility] [address] [place] [address] Oct, [facility] [address] [address] Oct, Generalized anxiety disorder 300.02 and Depression, major, severe recurrence 296.33 [facility] [address] [place] [id number] [place] [address] Oct, [facility] [address] [place] [id number] [place] [address] Oct, Depression, major, recurrent, moderate 296.32 [facility] [address] [place] [id number] [address] August, [facility] [address] [place] [id number] [place] [address] Jul, [facility] [address] [address] Jul, [facility] [address] [address] Jun, [facility] [address] [address] Jun, [facility] [address] [place] [address] May, [facility] [address] [address] May, [facility] [address] [address] May, [facility] [address] [address] May, [facility] [address] [place] [address] May, 2014 [facility] [place] [facility] [address] [id number] [place] [address] May, 2014 [facility] [place] [facility] [address] [id number] [place] [address] May, 2014 [facility] [place] [facility] [address] [facility] [id number] [place] [address] May, 2014 [facility] [place] [facility] [address] [id number] [place] [address] May, 2014 [facility] [place] [facility] [address] [id number] [place] [address] May, 2014 [facility] [place] [facility] [address] [facility] [id number] [place] [address] May, 2014 [facility] [place] [facility] [address] [facility] [id number] [place] [address] May, 2014 [facility] [place] [facility] [address] [facility] [id number], [place] [address] Apr, [facility] [place] [facility] [address] [facility] [id number] [place] [address] Apr, [facility] [place] [facility] [address] [facility] [id number] [place] [address] Apr, [facility] [place] [facility] [address] [facility] [id number], [place] [address] Apr, [facility] [place] [facility] [address] [facility] [id number], [place] [address] Apr, [facility] [place] [facility] [address] [id number], [place] [address] Apr, [facility] [place] [facility] [address] [facility] [id number], [place] [address] Apr, [facility] [place] [facility] [address] [facility] [id number], [place] [address] Apr, [facility] [place] [facility] [address] [id number] [place] [address] Apr, [facility] [place] [facility] [address] [id number] [place] [address] Apr, [facility] [place] [facility] [address] [id number] [place] [address] Mar, [facility] [place] [facility] [address] [id number] [place] [address] Mar, [facility] [place] [facility] [address] [id number] [place] [address] Mar, [facility] [place] [facility] [address] [id number] [place] [address] Mar, [facility] [place] [facility] [address] [id number] [place] [address] Mar, [facility] [place] [facility] [address] [id number] [place] [address] Feb, [facility] [place] [facility] [address] [id number] [place] [address] Feb, [facility] [place] [facility] [address] [id number] [place] [address] Dec, [facility] [place] [facility] [address] [id number] [place] [address] Dec, [facility] [place] [facility] [address] [id number] [place] [address] Nov, [facility] [place] [facility] [address] [id number] [place] [address] Nov, [facility] [place] [facility] [address] [id number] [place] [address] Nov, [facility] [place] [facility] [address] [id number] [place] [address] Nov, [facility] [place] [facility] [address] [id number] [place] [address] Oct, [facility] [place] [facility] [address] [id number] [place] [address] Oct, [facility] [place] [facility] [address] [id number] [place] [address] Sep, [facility] [place] [facility] [address] [id number] [place] [address] Sep, [facility] [place] [facility] [address] [id number] [place] [address] August, [facility] [place] [facility] [address] [id number] [place] [address] August, [facility] [place] [facility] [address] [id number] [place] [address] August, [facility] [place] [facility] [address] [id number] [place] [address] August, [facility] [place] [facility] [address] [id number] [place] [address] Jul, [facility] [place] [facility] [address] [id number] [place] [address] Jul, [facility] [place] [facility] [address] [id number] [place] [address] Jun, [facility] [place] [facility] [address] [id number] [place] [address] Jun, [facility] [place] [facility] [address] [id number] [place] [address] May, [facility] [place] [facility] [address] [id number] [place] [address] May, [facility] [place] [facility] [address] [id number] [place] [address] May, [facility] [place] [facility] [address] [id number] [place] [address] May, [facility] [place] [facility] [address] [id number] [place] [address] May, [facility] [place] [facility] [address] [id number] [place] [address] May, [facility] [place] [facility] [address] [id number] [place] [address] May, [facility] [place] [facility] [address] [id number] [place] [address] Apr, [facility] [place] [facility] [address] [id number] [place] [address] Apr, [facility] [place] [facility] [address] [id number] [place] [address] Apr, [facility] [place] [facility] [address] [id number] [place] [address] Apr, [facility] [place] [facility] [address] [id number] [place] [address] Apr, [facility] [place] [facility] [address] [id number] [place] [address] Apr, [facility] [place] [facility] [address] [id number] [place] [address] Apr, [facility] [place] [facility] [address] [id number] [place] [address] Apr, [facility] [place] [facility] [address] [id number] [place] [address] Apr, [facility] [place] [facility] [address] [id number] [place] [address] Apr, [facility] [place] [facility] [address] [id number] [place] [address] Mar, [facility] [place] [facility] [address] [id number] [place] [address] Mar, [facility] [place] [facility] [address] [id number] [place] [address] Mar, [facility] [place] [facility] [address] [id number] [place] [address] Mar, [facility] [place] [facility] [address] [id number] [place] [address] Feb, [facility] [place] [facility] [address] [id number] [place] [address] Feb, [facility] [place] [facility] [address] [id number] [place] [address] Feb, [facility] [place] [facility] [address] [id number] [place] [address] Feb, [facility] [place] [facility] [address] [id number] [place] [address] Feb, [facility] [place] [facility] [address] [id number] [place] [address] Feb, [facility] [place] [facility] [address] [id number] [place] [address] Jan, [facility] [place] [facility] [address] [id number] [place] [address] Jan, [facility] [place] [facility] [address] [id number], [place] [address] Dec, [facility] [place] [facility] [address] [id number], [place] [address] Dec, [facility] [place] [facility] [address] [id number], [place] [address] Nov, [facility] [place] [facility] [address] [id number] [place] [address] Nov, [facility] [place] [facility] [address] [id number], [place] [address] Oct, [facility] [place] [facility] [address] [id number], [place] [address] Sep, [facility] [place] [facility] [address] [id number] [place] [address] August, [facility] [address] [id number] [place] [address] 30 Jul, 2012 [facility] [place] [facility] [address] [id number] [place] [address] 14 Jul, 2012 [facility] [place] [facility] [address] [id number] [place] [address] Jul, [facility] [place] [facility] [address] [id number] [place] [address] Jul, [facility] [place] [facility] [address] [id number] [place] [address] Jul, [facility] [place] [facility] [address] [id number] [place] [address] Jun, [facility] [place] [facility] [address] [id number] [place] [address] May, [facility] [address] [id number] [place] [address] Apr, [facility] [place] [facility] [address] [id number] [place] [address] Mar, [facility] [place] [facility] [address] [id number] [place] [address] Mar, [facility] [place] [facility] [address] [id number] [place] [address] Mar, [facility] [place] [facility] [address] [id number] [place] [address] Jan, [facility] [place] [facility] [address] [id number] [place] [address] Jan, [facility] [place] [facility] [address] [id number] [place] [address] Jan, [facility] [place] [facility] [address] [id number] [place] [address] Jan, [facility] [place] [facility] [address] [id number] [place] [address] Dec, [facility] [place] [facility] [address] [id number] [place] [address] Dec, [facility] [place] [facility] [address] [id number] [place] [address] Nov, [facility] [place] [facility] [address] [id number] [place] [address] Nov, [facility] [place] [facility] [address] [id number] [place] [address] Nov, [facility] [place] [facility] [address] [id number] [place] [address] Nov, [facility] [place] [facility] [address] [id number] [place] [address] Nov, [facility] [place] [facility] [address] [id number] [place] [address] Oct, [facility] [place] [facility] [address] [id number] [place] [address] Oct, [facility] [place] [facility] [address] [id number] [place] [address] Oct, [facility] [place] [facility] [address] [id number] [place] [address] Sep, [facility] [place] [facility] [address] [id number] [place] [address] August, [facility] [place] [facility] [address] [id number] [place] [address] Jul, [facility] [place] [facility] [address] [id number] [place] [address] Jul, [facility] [place] [facility] [address] [id number] [place] [address] Jul, [facility] [place] [facility] [address] [id number] [place] [address] 05 Jul, 2011 [facility] [address] [id number] [place] [address] 29 Jun, 2011 [facility] [place] [facility] [address] [id number] [place] [address] 28 Jun, 2011 [facility] [place] [facility] [address] [facility] [id number] [place] [address] 23 Jun, 2011 [facility] [place] [facility] [address] [id number] [place] [address] 21 Jun, 2011 [facility] [place] [facility] [address] [id number] [place] [address] 15 Jun, 2011 [facility] [place] [facility] [address] [id number] [place] [address] 28 May, 2011 [facility] [address] [facility] [id number] [place] [address] 28 May, 2011 [facility] [place] [facility] [address] [facility] [id number] [place] [address] 27 May, 2011 [facility] [place] [facility] [address] [facility] [id number] [place] [address] 24 May, 2011 [facility] [place] [facility] [address] [facility] [id number] [place] [address] Apr, [facility] [place] [facility] [address] [facility] [id number] [place] [address] Mar, [facility] [place] [facility] [address] [id number] [place] [address] Mar, [facility] [place] [facility] [address] [facility] [id number] [place] [address] 17 Jun, 2010 [facility] [place] [facility] [address] [facility] [id number] [place] [address] 08 Feb, 2010 [facility] [place] [facility] [address] [facility] [id number] [place] [address] Jan, [facility] [place] [facility] [address] [id number] [address] Jan, [facility] [id number] [address] Jan, [facility] [id number] [address] Dec, [facility] [address] [id number] [address] May, [facility] [id number] [address] Feb, [facility] [id number] [place] [address] Feb, [facility] [address] [id number] [address] Feb, IMMUNIZATIONS No Known Immunizations SOCIAL HISTORY Never Assessed REASON FOR VISIT BP check f/u PLAN OF CARE VITAL SIGNS MEDICATIONS Medication Instructions Dosage Frequency Start Date End Date Duration Status Amlodipine Besylate 5 mg Orally Once a [...] History pneumonia Hospitalization History Surgery(s) Hospitalization History [facility] s/p overdose 11/14/16
--- OUTSIDE RECORDS SUMMARY | 2018-11-21 21:58 | XMS REPORT ---
Author Author LOVELACE TUSHAR Organization [facility] Address [address] [place] [address] Care Team Providers Care Software Qa Manager Name Role Phone LOVELACETUSHAR Ryder Unavailable PROBLEMS Type Condition ICD9-CM Code LTT16-PH Code Onset Dates Condition Status SNOMED Code Problem Generalized anxiety disorder F41.1 Active 60070245 Problem Hypercholesterolemia E78.00 Active 15182613 Problem Body mass index (BMI) of 32.0-32.9 in adult Z68.32 Active 028330427 Problem Chronic obstructive pulmonary disease, unspecified COPD type J44.9 Active 69875877 Problem Insomnia G47.00 Active 857683660 Problem Other depression F32.89 Active 956182184 Problem Facet arthropathy, lumbar M46.96 Active 248909838 Problem Lumbar spondylosis M47.816 Active 816216840 Problem Lumbago with sciatica, unspecified side M54.40 Active 75262346 Problem Other obesity due to excess calories E66.09 Active 332626452 Problem COPD exacerbation J44.1 Active 449881575 Problem Other chronic pain G89.29 Active 06889773 Problem Restless legs G25.81 Active 01951173 Problem Constipation due to outlet dysfunction K59.02 Active 31208885 Problem COPD (chronic obstructive pulmonary disease) J44.9 Active 40372668 Problem Depression F32.9 Active 03229045 Problem Anxiety F41.9 Active 05769104 Problem Gastroesophageal reflux disease with esophagitis K21.0 Active 151541488 Problem Essential hypertension I10 Active 91205379 Problem Severe episode of recurrent major depressive disorder, without psychotic features F33.2 Active 28938283 Problem Major depressive disorder, recurrent episode, moderate with anxious distress F33.1 Active 255075507 Problem Psychophysiological insomnia F51.04 Active 022926408 ALLERGIES No Known Allergies ENCOUNTERS Encounter Location Date Diagnosis [facility] [address] [facility] [id number] [address] Dec, [place] [address] [place] [id number] [place] [address] Dec, Fever, unspecified fever cause R50.9 ; Nausea and vomiting, intractability of vomiting not specified, unspecified vomiting type R11.2 ; Wheezing on auscultation R06.2 ; COPD (chronic obstructive pulmonary disease) J44.9 and Acute maxillary sinusitis, recurrence not specified J01.00 [place] [address] [address] Dec, Edema of lower extremity R60.[address] [address] Dec, [place] [address] [address] Nov, Essential hypertension I10 [address] [address] Nov, [place] [address] [address] Nov, Severe episode of recurrent major depressive disorder, without psychotic features F33.2 ; Generalized anxiety disorder F41.1 and Psychophysiological insomnia F51.04 [place] [id number] [place] [address] Nov, COPD (chronic obstructive pulmonary disease) J44.9 ; Essential hypertension I10 ; Lumbar spondylosis M47.816 ; Generalized anxiety disorder F41.1 ; Rash and nonspecific skin eruption R21 ; Pain in joints of right hand M25.541 ; Pain in joints of left hand M25.542 and Hypercholesterolemia E78.[address] [address] Nov, Rash and nonspecific skin eruption R21 and Non-intractable vomiting with nausea, unspecified vomiting type R11.2 [place] [id number] [place] [address] Oct, [place] [id number] [place] [address] Sep, Pain aggravated by standing R52 [place] [address] [address] Sep, Other depression F32.89 [place] [address] [address] Sep, Chronic obstructive pulmonary disease, unspecified COPD type J44.9 ; Pain aggravated by standing R52 ; Other depression F32.89 ; Major depressive disorder, recurrent episode, moderate with anxious distress F33.1 ; Restless legs G25.81 ; Insomnia G47.00 ; Gastroesophageal reflux disease with esophagitis K21.0 ; Essential hypertension I10 ; Generalized anxiety disorder F41.1 and Hypercholesterolemia E78.00 [place] [address] [address] Jul, Fever, unspecified fever cause R50.9 and Cough R05 [place] [address] [address] Jul, [place] [address] [address] Jul, Gastroesophageal reflux disease with esophagitis K21.0 [place] [address] [address] Jul, [place] [address] [address] Jun, COPD (chronic obstructive pulmonary disease) J44.9 ; Restless legs G25.81 ; Insomnia G47.00 ; Essential hypertension I10 ; Major depressive disorder, recurrent episode, moderate with anxious distress F33.1 ; Gastroesophageal reflux disease with esophagitis K21.0 ; Constipation due to outlet dysfunction K59.02 ; Hypercholesterolemia E78.00 ; Other chronic pain G89.29 and Generalized abdominal pain R10.84 [facility] [address] [address] [id number] [place] [address] Jun, [place] [id number] [place] [address] Jun, Acute recurrent sinusitis, unspecified location J01.91 and COPD exacerbation J44.1 [facility] [id number] [place] [address] Jun, Lumbago with sciatica, unspecified side M54.40 [place] [address] [id number] [place] [address] May, [address] [address] May, Severe episode of recurrent major depressive disorder, without psychotic features F33.2 [facility] [id number] [place] [address] Apr, COPD (chronic obstructive pulmonary disease) J44.9 [...] index (BMI) of 32.0-32.9 in adult Z68.32 [place] [id number] [place] [address] Apr, Severe episode of recurrent major depressive disorder, without psychotic features F33.2 [place] [id number] [place] [address] Feb, Severe episode of recurrent major depressive disorder, without psychotic features F33.2 and Restless legs G25.81 [place] [address] [address] [id number] [place] [address] Feb, Severe episode of recurrent major depressive disorder, without psychotic features F33.2 ; Generalized anxiety disorder F41.1 and Psychophysiological insomnia F51.04 [place] [address] [id number] [place] [address] Dec, Severe episode of recurrent major depressive disorder, without psychotic features F33.2 ; Generalized anxiety disorder F41.1 and Psychophysiological insomnia F51.04 [place] [address] [place] [address] Nov, Severe episode of recurrent major depressive disorder, without psychotic features F33.2 ; Generalized anxiety disorder F41.1 and Psychophysiological insomnia F51.04 [place] [address] [address] [id number] [place] [address] Nov, [place] [address] [address] [id number] [place] [address] Nov, Depression F32.9 [place] [address] [place] [address] [id number] [place] [address] Nov, Depression F32.9 ; Insomnia G47.00 and Anxiety F41.9 [place] [address] [address] [id number] [place] [address] August, COPD (chronic obstructive pulmonary disease) J44.9 ; Depression F32.9 ; Anxiety F41.9 ; Major depressive disorder, recurrent episode, moderate with anxious distress F33.1 ; Insomnia G47.00 ; Restless legs G25.81 ; Essential hypertension I10 and Pure hypercholesterolemia E78.00 [place] [address] [address] [id number] [place] [address] August, Acute intractable tension-type headache G44.201 [facility] [id number] [place] [address] Jul, Left wrist pain M25.532 and Strain of left wrist, initial encounter S66.912A [place] [address] [id number] [place] [address] May, Gastroesophageal reflux disease with esophagitis K21.0 and Anxiety F41.9 [place] [address] [address] [id number] [place] [address] May, Major depressive disorder, recurrent episode, moderate with anxious distress F33.1 ; COPD (chronic obstructive pulmonary disease) J44.9 ; Restless legs G25.81 ; Insomnia G47.00 ; Essential hypertension I10 ; Anxiety F41.9 ; Constipation due to outlet dysfunction K59.02 ; Torsion of intestine, bowel or colon K56.2 ; Hypercholesterolemia E78.00 and Gastroesophageal reflux disease with esophagitis K21.0 [place] [address] [address] [id number] [place] [address] Feb, [place] [address] [address] [id number] [place] [address] 20 Dec, 2015 Essential hypertension I10 ; Depression F32.9 ; Anxiety F41.9 ; Constipation due to outlet dysfunction K59.02 ; Torsion of intestine, bowel or colon K56.2 ; COPD (chronic obstructive pulmonary disease) J44.9 ; Insomnia G47.00 ; Restless legs G25.81 and Gastroesophageal reflux disease with esophagitis K21.0 [place] [address] [id number] [place] [address] 08 Dec, 2015 Essential hypertension I10 ; Major depressive disorder, recurrent episode, moderate with anxious distress F33.1 ; COPD (chronic obstructive pulmonary disease) J44.9 ; Restless legs G25.81 ; Insomnia G47.00 ; Constipation due to outlet dysfunction K59.02 and Gastroesophageal reflux disease without esophagitis K21.9 [place] [address] [place] [address] 07 Dec, 2015 Major depressive disorder, recurrent episode, moderate with anxious distress F33.1 [place] [address] [address] [id number] [place] [address] Sep, [place] [id number] [place] [address] 23 Sep, 2015 Nausea R11.0 [place] [address] [address] [id number] [place] [address] 15 Sep, 2015 Lower abdominal pain R10.30 ; COPD (chronic obstructive pulmonary disease) J44.9 ; Restless legs G25.81 ; Essential hypertension I10 ; Depression F32.9 ; Other chronic pain G89.29 ; Lumbago with sciatica, unspecified side M54.40 and Primary insomnia F51.01 [place] [address] [id number] [place] [address] August, [place] [address] [address] August, COPD (chronic obstructive pulmonary disease) J44.9 ; Insomnia G47.00 ; Depression F32.9 and Constipation due to outlet dysfunction K59.02 [place] [address] [address] August, [place] [address] [address] August, [place] [address] [address] August, Nausea & vomiting R11.2 [place] [address] [address] Jun, [place] [address] [address] Jun, Unspecified abdominal pain R10.9 ; Depression, major, recurrent, moderate 296.32 ; COPD (chronic obstructive pulmonary disease) J44.9 ; Restless legs G25.81 ; Insomnia G47.00 ; Intestinal abscess K63.0 ; HTN (hypertension) I10 and Hypercholesteremia E78.0 [place] [address] [address] [id number] [place] [address] Jun, Intestinal abscess K63.0 [place] [address] [address] May, [place] [address] [address] May, [place] [address] [address] May, Unspecified abdominal pain R10.9 [place] [address] [place] [id number] [place] [address] May, Depression, major, recurrent, moderate 296.32 ; COPD (chronic obstructive pulmonary disease) J44.9 ; Restless legs G25.81 ; Insomnia G47.00 ; Depression F32.9 ; HTN (hypertension) I10 and Hypercholesterolemia E78.0 [place] [address] [address] Apr, [place] [address] [address] Mar, Cellulitis L03.90 [place] [address] [address] Feb, Recurrent major depression-severe F33.[address] [address] Feb, Hyperlipemia E78.5 and High blood pressure I10 [address] [address] Feb, COPD (chronic obstructive pulmonary disease) J44.9 ; Restless legs G25.81 ; Insomnia G47.00 ; Depression F32.9 and HTN (hypertension) I10 [place] [address] [place] [id number] [place] [address] Jan, [place] [address] [place] [address] [id number] [place] [address] Jan, Generalized anxiety disorder F41.1 and Recurrent major depression- severe F33.[address] [address] Jan, Bronchitis J40 [place] [address] [place] [id number] [place] [address] Jan, Shoulder pain, right M25.511 and Low back pain M54.5 [facility] [address] [address] Jan, [facility] [address] [place] [id number] [place] [address] Oct, [facility] [address] [address] Oct, Generalized anxiety disorder 300.02 and Depression, major, severe recurrence 296.33 [facility] [address] [id number] [place] [address] Oct, [facility] [id number] [place] [address] Oct, Depression, major, recurrent, moderate 296.32 [facility] [id number] [place] [address] August, [facility] [address] [id number] [place] [address] Jul, [facility] [address] [place] [address] Jul, [facility] [id number] [address] Jun, [facility] [address] [address] Jun, [facility] [address] [place] [address] May, [facility] [address] [address] May, [facility] [address] [id number] [place] [address] May, [facility] [address] [address] May, [facility] [address] [place] [address] May, 2014 [facility] [place] [facility] [address] [id number] [place] [address] May, 2014 [facility] [place] [facility] [address] [id number] [place] [address] May, 2014 [facility] [place] [facility] [address] [id number] [place] [address] May, 2014 [facility] [place] [facility] [address] [id number] [place] [address] May, 2014 [facility] [place] [facility] [address] [id number] [place] [address] May, 2014 [facility] [place] [facility] [address] [id number] [place] [address] May, 2014 [facility] [place] [facility] [address] [facility] [id number] [place] [address] May, 2014 [facility] [place] [facility] [address] [id number] [place] [address] Apr, [facility] [place] [facility] [address] [id number] [place] [address] Apr, [facility] [place] [facility] [address] [facility] [id number] [place] [address] Apr, [facility] [place] [facility] [address] [id number] [place] [address] Apr, [facility] [place] [facility] [address] [id number] [address] Apr, [facility] [place] [facility] [address] [id number] [place] [address] Apr, [facility] [place] [facility] [address] [facility] [id number] [place] [address] Apr, [facility] [place] [facility] [address] [facility] [id number], [place] [address] Apr, [facility] [place] [facility] [address] [id number] [place] [address] Apr, [facility] [place] [facility] [address] [id number] [place] [address] Apr, [facility] [place] [facility] [address] [id number] [place] [address] Mar, [facility] [place] [facility] [address] [id number] [place] [address] Mar, [facility] [place] [facility] [address] [id number] [place] [address] Mar, [facility] [place] [facility] [address] [id number] [place] [address] Mar, [facility] [place] [facility] [address] [id number] [place] [address] Mar, [facility] [place] [facility] [address] [id number] [place] [address] Feb, [facility] [place] [facility] [address] [id number] [place] [address] Feb, [facility] [place] [facility] [address] [id number] [place] [address] Dec, [facility] [place] [facility] [address] [id number] [place] [address] Dec, [facility] [place] [facility] [address] [id number] [place] [address] Nov, [facility] [place] [facility] [address] [id number] [place] [address] Nov, [facility] [place] [facility] [address] [id number] [place] [address] Nov, [facility] [place] [facility] [address] [id number] [place] [address] Nov, [facility] [place] [facility] [address] [id number] [place] [address] Oct, [facility] [place] [facility] [address] [id number] [place] [address] Oct, [facility] [place] [facility] [address] [id number] [place] [address] Sep, [facility] [place] [facility] [address] [id number] [place] [address] Sep, [facility] [place] [facility] [address] [id number] [place] [address] August, [facility] [place] [facility] [address] [id number] [place] [address] August, [facility] [place] [facility] [address] [id number] [place] [address] August, [facility] [place] [facility] [address] [id number] [place] [address] August, [facility] [place] [facility] [address] [id number] [place] [address] Jul, [facility] [place] [facility] [address] [id number] [place] [address] Jul, [facility] [place] [facility] [address] [id number] [place] [address] Jun, [facility] [place] [facility] [address] [id number] [place] [address] Jun, [facility] [place] [facility] [address] [id number] [place] [address] May, [facility] [place] [facility] [address] [id number] [place] [address] May, [facility] [place] [facility] [address] [id number] [place] [address] May, [facility] [place] [facility] [address] [id number] [place] [address] May, [facility] [place] [facility] [address] [id number] [place] [address] May, [facility] [place] [facility] [address] [id number] [place] [address] May, [facility] [place] [facility] [address] [id number] [place] [address] May, [facility] [place] [facility] [address] [id number] [place] [address] Apr, [facility] [place] [facility] [address] [id number] [place] [address] Apr, [facility] [place] [facility] [address] [id number] [place] [address] Apr, [facility] [place] [facility] [address] [id number] [place] [address] Apr, [facility] [place] [facility] [address] [id number] [place] [address] Apr, [facility] [place] [facility] [address] [id number] [place] [address] Apr, [facility] [place] [facility] [address] [id number] [place] [address] Apr, [facility] [place] [facility] [address] [id number] [place] [address] Apr, [facility] [place] [facility] [address] [id number] [place] [address] Apr, [facility] [place] [facility] [address] [id number] [place] [address] Apr, [facility] [place] [facility] [address] [id number] [place] [address] Mar, [facility] [place] [facility] [address] [id number] [place] [address] Mar, [facility] [place] [facility] [address] [id number] [place] [address] Mar, [facility] [place] [facility] [address] [id number] [place] [address] Mar, [facility] [place] [facility] [address] [id number] [place] [address] Feb, [facility] [place] [facility] [address] [id number] [place] [address] Feb, [facility] [place] [facility] [address] [id number] [place] [address] Feb, [facility] [place] [facility] [address] [id number] [place] [address] Feb, [facility] [place] [facility] [address] [id number] [place] [address] Feb, [facility] [place] [facility] [address] [id number] [place] [address] Feb, [facility] [place] [facility] [address] [id number], [place] [address] Jan, [facility] [place] [facility] [address] [id number], [place] [address] Jan, [facility] [place] [facility] [address] [id number], [place] [address] Dec, [facility] [place] [facility] [address] [id number], [place] [address] Dec, [facility] [place] [facility] [address] [id number], [place] [address] Nov, [facility] [place] [facility] [address] [id number] [place] [address] Nov, [facility] [place] [facility] [address] [id number], [place] [address] Oct, [facility] [place] [facility] [address] [id number], [place] [address] Sep, [facility] [place] [facility] [address] [id number] [place] [address] August, [facility] [address] [id number] [place] [address] 30 Jul, 2012 [facility] [place] [facility] [address] [id number] [place] [address] 14 Jul, 2012 [facility] [address] [id number] [place] [address] Jul, [facility] [place] [facility] [address] [id number] [place] [address] Jul, [facility] [address] [id number] [place] [address] Jul, [facility] [address] [id number] [place] [address] Jun, [facility] [address] [id number] [place] [address] May, [facility] [address] [id number] [place] [address] Apr, [facility] [address] [id number] [place] [address] Mar, [facility] [address] [id number] [place] [address] Mar, [facility] [address] [id number] [place] [address] Mar, [facility] [address] [id number] [place] [address] Jan, [facility] [place] [facility] [address] [id number] [place] [address] Jan, [facility] [place] [facility] [address] [id number] [place] [address] Jan, [facility] [address] [id number] [place] [address] Jan, [facility] [place] [facility] [address] [id number] [place] [address] Dec, [facility] [place] [facility] [address] [id number] [place] [address] Dec, [facility] [place] [facility] [address] [id number] [place] [address] Nov, [facility] [place] [facility] [address] [id number] [place] [address] Nov, [facility] [place] [facility] [address] [id number] [place] [address] Nov, [facility] [place] [facility] [address] [id number] [place] [address] Nov, [facility] [place] [facility] [address] [id number] [place] [address] Nov, [facility] [place] [facility] [address] [id number] [place] [address] Oct, [facility] [place] [facility] [address] [id number] [place] [address] Oct, [facility] [place] [facility] [address] [id number] [place] [address] Oct, [facility] [place] [facility] [address] [id number] [place] [address] Sep, [facility] [place] [facility] [address] [id number] [place] [address] August, [facility] [place] [facility] [address] [id number] [place] [address] Jul, [facility] [place] [facility] [address] [id number] [place] [address] Jul, [facility] [place] [facility] [address] [id number] [place] [address] Jul, [facility] [place] [facility] [address] [id number] [place] [address] 05 Jul, 2011 [facility] [address] [id number] [place] [address] 29 Jun, 2011 [facility] [place] [facility] [address] [id number] [place] [address] 28 Jun, 2011 [facility] [place] [facility] [address] [facility] [id number] [place] [address] 23 Jun, 2011 [facility] [place] [facility] [address] [id number] [place] [address] 21 Jun, 2011 [facility] [place] [facility] [address] [id number] [place] [address] 15 Jun, 2011 [facility] [place] [facility] [address] [facility] [id number] [place] [address] 28 May, 2011 [facility] [place] [facility] [address] [id number] [place] [address] 28 May, 2011 [facility] [place] [facility] [address] [facility] [id number] [place] [address] 27 May, 2011 [facility] [place] [facility] [address] [facility] [id number] [place] [address] 24 May, 2011 [facility] [place] [facility] [address] [facility] [id number] [place] [address] Apr, [facility] [place] [facility] [address] [facility] [id number] [place] [address] Mar, [facility] [place] [facility] [address] [id number] [place] [address] Mar, [facility] [place] [facility] [address] [facility] [id number] [place] [address] 17 Jun, 2010 [facility] [place] [facility] [address] [facility] [id number] [place] [address] 08 Feb, 2010 [facility] [place] [facility] [address] [facility] [id number] [place] [address] Jan, [facility] [place] [facility] [address] [id number] [address] Jan, [facility] [id number] [place] [address] Jan, [facility] [id number] [place] [address] Dec, [facility] [id number] [place] [address] May, [facility] [id number] [place] [address] Feb, [facility] [id number] [place] [address] Feb, [facility] [id number] [place] [address] Feb, IMMUNIZATIONS No Known Immunizations SOCIAL HISTORY Never Assessed REASON FOR VISIT COPD- Has a rash on Bilat lower legs- Neda Pickens RN, O2 Sat PLAN OF CARE Activity Details Follow Up 3 Months, prn Reason:CHM/HTN VITAL SIGNS Height 62 in 2017-12-03 Weight 185 lbs 2017-12-03 Temperature 98.0 degrees Fahrenheit 2017-12-03 Heart Rate 104 bpm 2017-12-03 Respiratory Rate 18 2017-12-03 Oximetry on room air:94 % 2017-12-03 BMI 33.83 kg/m2 2017-12-03 Blood pressure systolic 166 mmHg 2017-12-03 Blood pressure diastolic 110 mmHg 2017-12-03 MEDICATIONS Medication Instructions Dosage Frequency Start Date End Date Duration Status Omeprazole 20 mg Orally Once a day 1 capsule 24h Active Losartan Potassium-HCTZ 50-12.5 MG Orally Once a day 2 tablets 24h Nov, 90 days Active Triamcinolone Acetonide 0.1 % Externally Twice a day 1 application to affected area 12h Nov, 14 days Active Klonopin 0.5 MG Orally Twice a day as needed 1 tablet Nov, Active Dulera 100-5 mcg/actuation 2 puffs by Inhalation route 2 times per day 12h Jul, Active Cymbalta 60 MG Orally twice a day 1 capsule 12h Nov, Active Atorvastatin Calcium 10 mg Orally Once a day 1 tablet 24h May, Active Gabapentin 300 MG Orally Three times [...] nausea 1 tablet Nov, 07 days Active Albuterol Sulfate 2.5 mg /3 mL (0.083 %) Inhalation every 4-6 hours as needed 1 Each by Inhalation route every 4 hours for cough and wheeze PRN for wheezing or cough; Jun, Active Remeron 30 MG Orally Once a day at bedtime 1 tablet Feb, Active RESULTS No Results PROCEDURES Procedure Date Ordered Result Body Site RHEUMATOID FACTOR, QUANT Dec 03, 2017 RBC SED RATE, AUTOMATED Dec 03, 2017 VENIPUNCT, ROUTINE* Dec 03, 2017 COMPREHEN METABOLIC PANEL Dec 03, 2017 COMPLETE CBC W/AUTO DIFF WBC Dec 03, 2017 LIPID PANEL Dec 03, 2017 ASSAY THYROID STIM HORMONE Dec 03, 2017 INSTRUCTIONS MEDICATIONS ADMINISTERED No Known Medications [...]
--- OUTSIDE RECORDS SUMMARY | 2018-11-21 21:58 | XMS REPORT ---
Author Author LOVELACETUSHAR Ryder Organization [facility] Address [address] [place] [address] Care Team Providers Care Stereoptician Name Role Phone TUSHAR LOVELACE Unavailable PROBLEMS Type Condition ICD9-CM Code IUN41-PO Code Onset Dates Condition Status SNOMED Code Problem Generalized anxiety disorder F41.1 Active 74208941 Problem Hypercholesterolemia E78.00 Active 58202584 Problem Body mass index (BMI) of 32.0-32.9 in adult Z68.32 Active 087389071 Problem Chronic obstructive pulmonary disease, unspecified COPD type J44.9 Active 33519178 Problem Insomnia G47.00 Active 968913897 Problem Other depression F32.89 Active 407881430 Problem Facet arthropathy, lumbar M46.96 Active 281870836 Problem Lumbar spondylosis M47.816 Active 916452671 Problem Lumbago with sciatica, unspecified side M54.40 Active 52584167 Problem Other obesity due to excess calories E66.09 Active 144657528 Problem COPD exacerbation J44.1 Active 861933360 Problem Other chronic pain G89.29 Active 68363126 Problem Restless legs G25.81 Active 90368207 Problem Constipation due to outlet dysfunction K59.02 Active 37476939 Problem COPD (chronic obstructive pulmonary disease) J44.9 Active 35344877 Problem Depression F32.9 Active 33631649 Problem Anxiety F41.9 Active 24291836 Problem Gastroesophageal reflux disease with esophagitis K21.0 Active 889908322 Problem Essential hypertension I10 Active 00158853 Problem Severe episode of recurrent major depressive disorder, without psychotic features F33.2 Active 72668649 Problem Major depressive disorder, recurrent episode, moderate with anxious distress F33.1 Active 088701659 Problem Psychophysiological insomnia F51.04 Active [id number] ALLERGIES No Information ENCOUNTERS Encounter Location Date Diagnosis [facility] [address] [facility] [id number] [address] Dec, [place] [address] [place] [id number] [place] [address] Dec, Fever, unspecified fever cause R50.9 ; Nausea and vomiting, intractability of vomiting not specified, unspecified vomiting type R11.2 ; Wheezing on auscultation R06.2 ; COPD (chronic obstructive pulmonary disease) J44.9 and Acute maxillary sinusitis, recurrence not specified J01.00 [place] [address] [address] Dec, Edema of lower extremity R60.[address] [address] Dec, [place] [address] [address] Nov, Essential hypertension I10 [address] [address] Nov, [place] [address] [address] Nov, Severe episode of recurrent major depressive disorder, without psychotic features F33.2 ; Generalized anxiety disorder F41.1 and Psychophysiological insomnia F51.04 [place] [id number] [place] [address] Nov, COPD (chronic obstructive pulmonary disease) J44.9 ; Essential hypertension I10 ; Lumbar spondylosis M47.816 ; Generalized anxiety disorder F41.1 ; Rash and nonspecific skin eruption R21 ; Pain in joints of right hand M25.541 ; Pain in joints of left hand M25.542 and Hypercholesterolemia E78.[address] [address] Nov, Rash and nonspecific skin eruption R21 and Non-intractable vomiting with nausea, unspecified vomiting type R11.[address] [place] [id number] [place] [address] Oct, [place] [address] [address] [id number] [place] [address] Sep, Pain aggravated by standing R52 [place] [id number] [address] Sep, Other depression F32.89 [place] [address] [address] Sep, Chronic obstructive pulmonary disease, unspecified COPD type J44.9 ; Pain aggravated by standing R52 ; Other depression F32.89 ; Major depressive disorder, recurrent episode, moderate with anxious distress F33.1 ; Restless legs G25.81 ; Insomnia G47.00 ; Gastroesophageal reflux disease with esophagitis K21.0 ; Essential hypertension I10 ; Generalized anxiety disorder F41.1 and Hypercholesterolemia E78.00 [place] [address] [address] Jul, Fever, unspecified fever cause R50.9 and Cough R05 [place] [address] [address] Jul, [place] [address] [address] Jul, Gastroesophageal reflux disease with esophagitis K21.0 [place] [address] [address] Jul, [place] [address] [address] Jun, COPD (chronic obstructive pulmonary disease) J44.9 ; Restless legs G25.81 ; Insomnia G47.00 ; Essential hypertension I10 ; Major depressive disorder, recurrent episode, moderate with anxious distress F33.1 ; Gastroesophageal reflux disease with esophagitis K21.0 ; Constipation due to outlet dysfunction K59.02 ; Hypercholesterolemia E78.00 ; Other chronic pain G89.29 and Generalized abdominal pain R10.84 [place] [address] [address] Jun, [place] [address] [place] [id number] [place] [address] Jun, Acute recurrent sinusitis, unspecified location J01.91 and COPD exacerbation J44.1 [place] [address] [address] [id number] [place] [address] Jun, Lumbago with sciatica, unspecified side M54.40 [place] [address] [address] May, [place] [address] [address] May, Severe episode of recurrent major depressive disorder, without psychotic features F33.2 [place] [address] [address] [id number] [place] [address] Apr, COPD (chronic obstructive pulmonary disease) J44.9 [...] index (BMI) of 32.0-32.9 in adult Z68.32 [place] [address] [place] [id number] [place] [address] Apr, Severe episode of recurrent major depressive disorder, without psychotic features F33.2 [place] [address] [address] [id number] [place] [address] Feb, Severe episode of recurrent major depressive disorder, without psychotic features F33.2 and Restless legs G25.81 [place] [address] [id number] [place] [address] Feb, Severe episode of recurrent major depressive disorder, without psychotic features F33.2 ; Generalized anxiety disorder F41.1 and Psychophysiological insomnia F51.04 [place] [address] [place] [id number] [place] [address] Dec, Severe episode of recurrent major depressive disorder, without psychotic features F33.2 ; Generalized anxiety disorder F41.1 and Psychophysiological insomnia F51.04 [place] [id number] [place] [address] Nov, Severe episode of recurrent major depressive disorder, without psychotic features F33.2 ; Generalized anxiety disorder F41.1 and Psychophysiological insomnia F51.04 [place] [address] [place] [id number] [place] [address] Nov, [place] [address] [place] [id number] [place] [address] Nov, Depression F32.9 [place] [address] [place] [id number] [place] [address] Nov, Depression F32.9 ; Insomnia G47.00 and Anxiety F41.9 [place] [id number] [place] [address] August, COPD (chronic obstructive pulmonary disease) J44.9 ; Depression F32.9 ; Anxiety F41.9 ; Major depressive disorder, recurrent episode, moderate with anxious distress F33.1 ; Insomnia G47.00 ; Restless legs G25.81 ; Essential hypertension I10 and Pure hypercholesterolemia E78.00 [place] [address] [address] [id number] [place] [address] August, Acute intractable tension-type headache G44.201 [facility] [address] [place] [address] [id number] [place] [address] Jul, Left wrist pain M25.532 and Strain of left wrist, initial encounter S66.912A [place] [id number] [place] [address] May, Gastroesophageal reflux disease with esophagitis K21.0 and Anxiety F41.9 [place] [address] [address] [id number] [place] [address] May, Major depressive disorder, recurrent episode, moderate with anxious distress F33.1 ; COPD (chronic obstructive pulmonary disease) J44.9 ; Restless legs G25.81 ; Insomnia G47.00 ; Essential hypertension I10 ; Anxiety F41.9 ; Constipation due to outlet dysfunction K59.02 ; Torsion of intestine, bowel or colon K56.2 ; Hypercholesterolemia E78.00 and Gastroesophageal reflux disease with esophagitis K21.0 [place] [address] [place] [id number] [place] [address] Feb, [place] [address] [place] [id number] [place] [address] 20 Dec, 2015 Essential hypertension I10 ; Depression F32.9 ; Anxiety F41.9 ; Constipation due to outlet dysfunction K59.02 ; Torsion of intestine, bowel or colon K56.2 ; COPD (chronic obstructive pulmonary disease) J44.9 ; Insomnia G47.00 ; Restless legs G25.81 and Gastroesophageal reflux disease with esophagitis K21.0 [place] [address] [address] 08 Dec, 2015 Essential hypertension I10 ; Major depressive disorder, recurrent episode, moderate with anxious distress F33.1 ; COPD (chronic obstructive pulmonary disease) J44.9 ; Restless legs G25.81 ; Insomnia G47.00 ; Constipation due to outlet dysfunction K59.02 and Gastroesophageal reflux disease without esophagitis K21.9 [place] [address] [address] [id number] [place] [address] 07 Dec, 2015 Major depressive disorder, recurrent episode, moderate with anxious distress F33.1 [place] [address] [place] [address] [id number] [place] [address] Sep, [place] [id number] [place] [address] 23 Sep, 2015 Nausea R11.0 [place] [address] [place] [address] [id number] [place] [address] 15 Sep, 2015 Lower abdominal pain R10.30 ; COPD (chronic obstructive pulmonary disease) J44.9 ; Restless legs G25.81 ; Essential hypertension I10 ; Depression F32.9 ; Other chronic pain G89.29 ; Lumbago with sciatica, unspecified side M54.40 and Primary insomnia F51.01 [place] [address] [place] [id number] [place] [address] August, [place] [address] [place] [address] [id number] [place] [address] August, COPD (chronic obstructive pulmonary disease) J44.9 ; Insomnia G47.00 ; Depression F32.9 and Constipation due to outlet dysfunction K59.02 [place] [address] [place] [id number] [place] [address] August, [place] [address] [address] August, [place] [address] [address] August, Nausea & vomiting R11.2 [place] [address] [address] Jun, [place] [address] [address] Jun, Unspecified abdominal pain R10.9 ; Depression, major, recurrent, moderate 296.32 ; COPD (chronic obstructive pulmonary disease) J44.9 ; Restless legs G25.81 ; Insomnia G47.00 ; Intestinal abscess K63.0 ; HTN (hypertension) I10 and Hypercholesteremia E78.0 [place] [address] [place] [id number] [place] [address] Jun, Intestinal abscess K63.0 [place] [address] [address] May, [place] [address] [place] [id number] [place] [address] May, [place] [address] [address] May, Unspecified abdominal pain R10.9 [place] [address] [place] [id number] [place] [address] May, Depression, major, recurrent, moderate 296.32 ; COPD (chronic obstructive pulmonary disease) J44.9 ; Restless legs G25.81 ; Insomnia G47.00 ; Depression F32.9 ; HTN (hypertension) I10 and Hypercholesterolemia E78.0 [place] [address] [address] Apr, [place] [address] [address] Mar, Cellulitis L03.[address] [address] Feb, Recurrent major depression-severe F33.[address] [address] Feb, Hyperlipemia E78.5 and High blood pressure I10 [address] [address] Feb, COPD (chronic obstructive pulmonary disease) J44.9 ; Restless legs G25.81 ; Insomnia G47.00 ; Depression F32.9 and HTN (hypertension) I10 [place] [address] [place] [id number] [place] [address] Jan, [place] [address] [address] Jan, Generalized anxiety disorder F41.1 and Recurrent major depression- severe F33.[address] [address] Jan, Bronchitis J40 [place] [address] [place] [id number] [place] [address] Jan, Shoulder pain, right M25.511 and Low back pain M54.5 [facility] [address] [address] Jan, [facility] [id number] [place] [address] Oct, [facility] [address] [address] Oct, Generalized anxiety disorder 300.02 and Depression, major, severe recurrence 296.33 [facility] [address] [place] [id number] [place] [address] Oct, [facility] [address] [place] [id number] [place] [address] Oct, Depression, major, recurrent, moderate 296.32 [facility] [address] [place] [id number] [address] August, [facility] [address] [place] [id number] [place] [address] Jul, [facility] [address] [address] Jul, [facility] [address] [address] Jun, [facility] [address] [address] Jun, [facility] [address] [place] [address] May, [facility] [address] [address] May, [facility] [address] [address] May, [facility] [address] [address] May, [facility] [address] [place] [address] May, 2014 [facility] [place] [facility] [address] [id number] [place] [address] May, 2014 [facility] [place] [facility] [address] [id number] [place] [address] May, 2014 [facility] [place] [facility] [address] [facility] [id number] [place] [address] May, 2014 [facility] [place] [facility] [address] [id number] [place] [address] May, 2014 [facility] [place] [facility] [address] [id number] [place] [address] May, 2014 [facility] [place] [facility] [address] [facility] [id number] [place] [address] May, 2014 [facility] [place] [facility] [address] [facility] [id number] [place] [address] May, 2014 [facility] [place] [facility] [address] [facility] [id number] [address] Apr, [facility] [place] [facility] [address] [facility] [id number] [place] [address] Apr, [facility] [place] [facility] [address] [facility] [id number] [place] [address] Apr, [facility] [place] [facility] [address] [facility] [id number], [place] [address] Apr, [facility] [place] [facility] [address] [facility] [id number], [place] [address] Apr, [facility] [place] [facility] [address] [id number], [place] [address] Apr, [facility] [place] [facility] [address] [facility] [id number] [address] Apr, [facility] [place] [facility] [address] [facility] [id number] [address] Apr, [facility] [place] [facility] [address] [id number] [place] [address] Apr, [facility] [place] [facility] [address] [id number] [place] [address] Apr, [facility] [place] [facility] [address] [id number] [place] [address] Mar, [facility] [place] [facility] [address] [id number] [place] [address] Mar, [facility] [place] [facility] [address] [id number] [place] [address] Mar, [facility] [place] [facility] [address] [id number] [place] [address] Mar, [facility] [place] [facility] [address] [id number] [place] [address] Mar, [facility] [place] [facility] [address] [id number] [place] [address] Feb, [facility] [place] [facility] [address] [id number] [place] [address] Feb, [facility] [place] [facility] [address] [id number] [place] [address] Dec, [facility] [place] [facility] [address] [id number] [place] [address] Dec, [facility] [place] [facility] [address] [id number] [place] [address] Nov, [facility] [place] [facility] [address] [id number] [place] [address] Nov, [facility] [place] [facility] [address] [id number] [place] [address] Nov, [facility] [place] [facility] [address] [id number] [place] [address] Nov, [facility] [place] [facility] [address] [id number] [place] [address] Oct, [facility] [place] [facility] [address] [id number] [place] [address] Oct, [facility] [place] [facility] [address] [id number] [place] [address] Sep, [facility] [place] [facility] [address] [id number] [place] [address] Sep, [facility] [place] [facility] [address] [id number] [place] [address] August, [facility] [place] [facility] [address] [id number] [place] [address] August, [facility] [place] [facility] [address] [id number] [place] [address] August, [facility] [place] [facility] [address] [id number] [place] [address] August, [facility] [place] [facility] [address] [id number] [place] [address] Jul, [facility] [place] [facility] [address] [id number] [place] [address] Jul, [facility] [place] [facility] [address] [id number] [place] [address] Jun, [facility] [place] [facility] [address] [id number] [place] [address] Jun, [facility] [place] [facility] [address] [id number] [place] [address] May, [facility] [place] [facility] [address] [id number] [place] [address] May, [facility] [place] [facility] [address] [id number] [place] [address] May, [facility] [place] [facility] [address] [id number] [place] [address] May, [facility] [place] [facility] [address] [id number] [place] [address] May, [facility] [place] [facility] [address] [id number] [place] [address] May, [facility] [place] [facility] [address] [id number] [place] [address] May, [facility] [place] [facility] [address] [id number] [place] [address] Apr, [facility] [place] [facility] [address] [id number] [place] [address] Apr, [facility] [place] [facility] [address] [id number] [place] [address] Apr, [facility] [place] [facility] [address] [id number] [place] [address] Apr, [facility] [place] [facility] [address] [id number] [place] [address] Apr, [facility] [place] [facility] [address] [id number] [place] [address] Apr, [facility] [place] [facility] [address] [id number] [place] [address] Apr, [facility] [place] [facility] [address] [id number] [place] [address] Apr, [facility] [place] [facility] [address] [id number] [place] [address] Apr, [facility] [place] [facility] [address] [id number] [place] [address] Apr, [facility] [place] [facility] [address] [id number] [place] [address] Mar, [facility] [place] [facility] [address] [id number] [place] [address] Mar, [facility] [place] [facility] [address] [id number] [place] [address] Mar, [facility] [place] [facility] [address] [id number] [place] [address] Mar, [facility] [place] [facility] [address] [id number] [place] [address] Feb, [facility] [place] [facility] [address] [id number] [place] [address] Feb, [facility] [place] [facility] [address] [id number] [place] [address] Feb, [facility] [place] [facility] [address] [id number] [place] [address] Feb, [facility] [place] [facility] [address] [id number] [place] [address] Feb, [facility] [place] [facility] [address] [id number] [place] [address] Feb, [facility] [place] [facility] [address] [id number] [place] [address] Jan, [facility] [place] [facility] [address] [id number] [place] [address] Jan, [facility] [place] [facility] [address] [id number] [address] Dec, [facility] [place] [facility] [address] [id number], [place] [address] Dec, [facility] [place] [facility] [address] [id number], [place] [address] Nov, [facility] [place] [facility] [address] [id number] [place] [address] Nov, [facility] [place] [facility] [address] [id number], [place] [address] Oct, [facility] [place] [facility] [address] [id number][place] [address] Sep, [facility] [place] [facility] [address] [id number] [place] [address] August, [facility] [address] [id number] [place] [address] 30 Jul, 2012 [facility] [place] [facility] [address] [id number] [place] [address] 14 Jul, 2012 [facility] [place] [facility] [address] [id number] [place] [address] Jul, [facility] [place] [facility] [address] [id number] [place] [address] Jul, [facility] [place] [facility] [address] [id number] [place] [address] Jul, [facility] [place] [facility] [address] [id number] [place] [address] Jun, [facility] [place] [facility] [address] [id number] [place] [address] May, [facility] [address] [id number] [place] [address] Apr, [facility] [place] [facility] [address] [id number] [place] [address] Mar, [facility] [place] [facility] [address] [id number] [place] [address] Mar, [facility] [place] [facility] [address] [id number] [place] [address] Mar, [facility] [place] [facility] [address] [id number] [place] [address] Jan, [facility] [place] [facility] [address] [id number] [place] [address] Jan, [facility] [place] [facility] [address] [id number] [place] [address] Jan, [facility] [place] [facility] [address] [id number] [place] [address] Jan, [facility] [place] [facility] [address] [id number] [place] [address] Dec, [facility] [place] [facility] [address] [id number] [place] [address] Dec, [facility] [place] [facility] [address] [id number] [place] [address] Nov, [facility] [place] [facility] [address] [id number] [place] [address] Nov, [facility] [place] [facility] [address] [id number] [place] [address] Nov, [facility] [place] [facility] [address] [id number] [place] [address] Nov, [facility] [place] [facility] [address] [id number] [place] [address] Nov, [facility] [place] [facility] [address] [id number] [place] [address] Oct, [facility] [place] [facility] [address] [id number] [place] [address] Oct, [facility] [place] [facility] [address] [id number] [place] [address] Oct, [facility] [place] [facility] [address] [id number] [place] [address] Sep, [facility] [place] [facility] [address] [id number] [place] [address] August, [facility] [place] [facility] [address] [id number] [place] [address] Jul, [facility] [place] [facility] [address] [id number] [place] [address] Jul, [facility] [place] [facility] [address] [id number] [place] [address] Jul, [facility] [place] [facility] [address] [id number] [place] [address] 05 Jul, 2011 [facility] [address] [id number] [place] [address] 29 Jun, 2011 [facility] [place] [facility] [address] [id number] [place] [address] 28 Jun, 2011 [facility] [place] [facility] [address] [facility] [id number] [place] [address] 23 Jun, 2011 [facility] [place] [facility] [address] [id number] [place] [address] 21 Jun, 2011 [facility] [place] [facility] [address] [id number] [place] [address] 15 Jun, 2011 [facility] [place] [facility] [address] [id number] [place] [address] 28 May, 2011 [facility] [facility] [address] [facility] [id number] [place] [address] 28 May, 2011 [facility] [place] [facility] [address] [facility] [id number] [place] [address] 27 May, 2011 [facility] [place] [facility] [address] [facility] [id number] [place] [address] 24 May, 2011 [facility] [place] [facility] [address] [facility] [id number] [place] [address] Apr, [facility] [place] [facility] [address] [facility] [id number] [place] [address] Mar, [facility] [place] [facility] [address] [id number] [place] [address] Mar, [facility] [place] [facility] [address] [facility] [id number] [place] [address] 17 Jun, 2010 [facility] [place] [facility] [address] [facility] [id number] [place] [address] 08 Feb, 2010 [facility] [place] [facility] [address] [facility] [id number] [place] [address] Jan, [facility] [place] [facility] [address] [facility] [id number] [address] Jan, [facility] [address] [facility] [id number] [address] Jan, [facility] [address] [id number] [address] Dec, [facility] [address] [facility] [id number][place] [address] May, [facility] [address] [facility] [id number] [address] Feb, [facility] [address] [id number] [address] Feb, [facility] [address] [facility] [id number][place] [address] Feb, IMMUNIZATIONS No Known Immunizations SOCIAL HISTORY Never Assessed REASON FOR VISIT bp check- Pt states per her provider her BP is still running high, spoke with pt she states her legs are causing her a lot of pain because she had a flat tire on the way here so she ended up walking the rest of the way in her slippers. Pt is angry because of the flat tire and having to get help to fix the issue so she thinks the BP is probably a bit more elevated because of this and her pain. Told pt I would let the provider know of her BP reading and see if there were an y needed changes. Offered transportation to the patient but she states her DIL w as here to give her a judi Pickens RN PLAN OF CARE VITAL SIGNS Height 62 in 2017-12-16 Blood pressure systolic 142 mmHg 2017-12-16 Blood pressure diastolic 100 mmHg 2017-12-16 MEDICATIONS Unknown Medications RESULTS No Results PROCEDURES [...]
--- OUTSIDE RECORDS SUMMARY | 2018-11-21 21:59 | XMS REPORT ---
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 Name Role Phone VASU DAVILA Unavailable PROBLEMS Type Condition ICD9-CM Code SQA19-ME Code Onset Dates Condition Status SNOMED Code Problem Generalized anxiety disorder F41.1 Active 88087685 Problem Hypercholesterolemia E78.00 Active 32930727 Problem Body mass index (BMI) of 32.0-32.9 in adult Z68.32 Active 229553775 Problem Chronic obstructive pulmonary disease, unspecified COPD type J44.9 Active 86197855 Problem Insomnia G47.00 Active 954305413 Problem Other depression F32.89 Active 971041117 Problem Facet arthropathy, lumbar M46.96 Active 217465586 Problem Lumbar spondylosis M47.816 Active 175993458 Problem Lumbago with sciatica, unspecified side M54.40 Active 96421740 Problem Other obesity due to excess calories E66.09 Active 904162765 Problem COPD exacerbation J44.1 Active 894064411 Problem Other chronic pain G89.29 Active 58451158 Problem Restless legs G25.81 Active 32244765 Problem Constipation due to outlet dysfunction K59.02 Active 13530258 Problem COPD (chronic obstructive pulmonary disease) J44.9 Active 66219088 Problem Depression F32.9 Active 09715529 Problem Anxiety F41.9 Active 01844410 Problem Gastroesophageal reflux disease with esophagitis K21.0 Active 168319439 Problem Essential hypertension I10 Active 23638830 Problem Severe episode of recurrent major depressive disorder, without psychotic features F33.2 Active 73429053 Problem Major depressive disorder, recurrent episode, moderate with anxious distress F33.1 Active 076216117 Problem Psychophysiological insomnia F51.04 Active 951622570 ALLERGIES No Known Allergies ENCOUNTERS Encounter Location Date Diagnosis [facility] [address] [facility] [id number], [place] [address] Dec, [place] [address] [place] [id number] [place] [address] Dec, Fever, unspecified fever cause R50.9 ; Nausea and vomiting, intractability of vomiting not specified, unspecified vomiting type R11.2 ; Wheezing on auscultation R06.2 ; COPD (chronic obstructive pulmonary disease) J44.9 and Acute maxillary sinusitis, recurrence not specified J01.00 [place] [address] [address] Dec, Edema of lower extremity R60.[address] [address] Dec, [place] [address] [address] Nov, Essential hypertension I10 [address] [address] Nov, [place] [address] [address] Nov, Severe episode of recurrent major depressive disorder, without psychotic features F33.2 ; Generalized anxiety disorder F41.1 and Psychophysiological insomnia F51.04 [place] [id number] [place] [address] Nov, COPD (chronic obstructive pulmonary disease) J44.9 ; Essential hypertension I10 ; Lumbar spondylosis M47.816 ; Generalized anxiety disorder F41.1 ; Rash and nonspecific skin eruption R21 ; Pain in joints of right hand M25.541 ; Pain in joints of left hand M25.542 and Hypercholesterolemia E78.[address] [address] Nov, Rash and nonspecific skin eruption R21 and Non-intractable vomiting with nausea, unspecified vomiting type R11.2 [place] [id number] [place] [address] Oct, [place] [address] [id number] [place] [address] Sep, Pain aggravated by standing R52 [place] [id number] [address] Sep, Other depression F32.89 [place] [address] [address] Sep, Chronic obstructive pulmonary disease, unspecified COPD type J44.9 ; Pain aggravated by standing R52 ; Other depression F32.89 ; Major depressive disorder, recurrent episode, moderate with anxious distress F33.1 ; Restless legs G25.81 ; Insomnia G47.00 ; Gastroesophageal reflux disease with esophagitis K21.0 ; Essential hypertension I10 ; Generalized anxiety disorder F41.1 and Hypercholesterolemia E78.00 [place] [address] [address] Jul, Fever, unspecified fever cause R50.9 and Cough R05 [place] [address] [address] Jul, [place] [address] [address] Jul, Gastroesophageal reflux disease with esophagitis K21.0 [place] [address] [address] Jul, [place] [address] [address] Jun, COPD (chronic obstructive pulmonary disease) J44.9 ; Restless legs G25.81 ; Insomnia G47.00 ; Essential hypertension I10 ; Major depressive disorder, recurrent episode, moderate with anxious distress F33.1 ; Gastroesophageal reflux disease with esophagitis K21.0 ; Constipation due to outlet dysfunction K59.02 ; Hypercholesterolemia E78.00 ; Other chronic pain G89.29 and Generalized abdominal pain R10.84 [place] [address] [address] Jun, [place] [address] [place] [id number] [place] [address] Jun, Acute recurrent sinusitis, unspecified location J01.91 and COPD exacerbation J44.1 [place] [address] [id number] [place] [address] Jun, Lumbago with sciatica, unspecified side M54.40 [place] [address] [address] May, [place] [address] [address] May, Severe episode of recurrent major depressive disorder, without psychotic features F33.2 [place] [address] [place] [id number] [place] [address] Apr, COPD (chronic obstructive pulmonary disease) J44.9 [...] index (BMI) of 32.0-32.9 in adult Z68.32 [place] [address] [place] [id number] [place] [address] Apr, Severe episode of recurrent major depressive disorder, without psychotic features F33.2 [place] [address] [address] [id number] [place] [address] Feb, Severe episode of recurrent major depressive disorder, without psychotic features F33.2 and Restless legs G25.81 [place] [address] [address] [id number] [place] [address] Feb, Severe episode of recurrent major depressive disorder, without psychotic features F33.2 ; Generalized anxiety disorder F41.1 and Psychophysiological insomnia F51.04 [place] [address] [place] [id number] [place] [address] Dec, Severe episode of recurrent major depressive disorder, without psychotic features F33.2 ; Generalized anxiety disorder F41.1 and Psychophysiological insomnia F51.04 [place] [id number] [place] [address] Nov, Severe episode of recurrent major depressive disorder, without psychotic features F33.2 ; Generalized anxiety disorder F41.1 and Psychophysiological insomnia F51.04 [place] [address] [place] [id number] [place] [address] Nov, [place] [address] [place] [id number] [place] [address] Nov, Depression F32.9 [place] [address] [place] [id number] [place] [address] Nov, Depression F32.9 ; Insomnia G47.00 and Anxiety F41.9 [place] [id number] [place] [address] August, COPD (chronic obstructive pulmonary disease) J44.9 ; Depression F32.9 ; Anxiety F41.9 ; Major depressive disorder, recurrent episode, moderate with anxious distress F33.1 ; Insomnia G47.00 ; Restless legs G25.81 ; Essential hypertension I10 and Pure hypercholesterolemia E78.00 [place] [address] [place] [id number] [place] [address] August, Acute intractable tension-type headache G44.201 [facility] [id number] [place] [address] Jul, Left wrist pain M25.532 and Strain of left wrist, initial encounter S66.912A [place] [id number] [place] [address] May, Gastroesophageal reflux disease with esophagitis K21.0 and Anxiety F41.9 [place] [address] [address] [id number] [place] [address] May, Major depressive disorder, recurrent episode, moderate with anxious distress F33.1 ; COPD (chronic obstructive pulmonary disease) J44.9 ; Restless legs G25.81 ; Insomnia G47.00 ; Essential hypertension I10 ; Anxiety F41.9 ; Constipation due to outlet dysfunction K59.02 ; Torsion of intestine, bowel or colon K56.2 ; Hypercholesterolemia E78.00 and Gastroesophageal reflux disease with esophagitis K21.0 [place] [address] [place] [id number] [place] [address] Feb, [place] [address] [place] [id number] [place] [address] 20 Dec, 2015 Essential hypertension I10 ; Depression F32.9 ; Anxiety F41.9 ; Constipation due to outlet dysfunction K59.02 ; Torsion of intestine, bowel or colon K56.2 ; COPD (chronic obstructive pulmonary disease) J44.9 ; Insomnia G47.00 ; Restless legs G25.81 and Gastroesophageal reflux disease with esophagitis K21.0 [place] [address] [address] 08 Dec, 2015 Essential hypertension I10 ; Major depressive disorder, recurrent episode, moderate with anxious distress F33.1 ; COPD (chronic obstructive pulmonary disease) J44.9 ; Restless legs G25.81 ; Insomnia G47.00 ; Constipation due to outlet dysfunction K59.02 and Gastroesophageal reflux disease without esophagitis K21.9 [place] [address] [place] [id number] [place] [address] 07 Dec, 2015 Major depressive disorder, recurrent episode, moderate with anxious distress F33.1 [place] [address] [place] [id number] [place] [address] Sep, [place] [id number] [place] [address] 23 Sep, 2015 Nausea R11.0 [place] [address] [place] [id number] [place] [address] 15 Sep, 2015 Lower abdominal pain R10.30 ; COPD (chronic obstructive pulmonary disease) J44.9 ; Restless legs G25.81 ; Essential hypertension I10 ; Depression F32.9 ; Other chronic pain G89.29 ; Lumbago with sciatica, unspecified side M54.40 and Primary insomnia F51.01 [place] [address] [place] [id number] [place] [address] August, [place] [address] [place] [id number] [place] [address] August, COPD (chronic obstructive pulmonary disease) J44.9 ; Insomnia G47.00 ; Depression F32.9 and Constipation due to outlet dysfunction K59.02 [place] [address] [place] [id number] [place] [address] August, [place] [address] [address] August, [place] [address] [address] August, Nausea & vomiting R11.2 [place] [address] [address] Jun, [place] [address] [address] Jun, Unspecified abdominal pain R10.9 ; Depression, major, recurrent, moderate 296.32 ; COPD (chronic obstructive pulmonary disease) J44.9 ; Restless legs G25.81 ; Insomnia G47.00 ; Intestinal abscess K63.0 ; HTN (hypertension) I10 and Hypercholesteremia E78.0 [place] [address] [place] [id number] [place] [address] Jun, Intestinal abscess K63.0 [place] [address] [address] May, [place] [address] [place] [id number] [place] [address] May, [place] [address] [address] May, Unspecified abdominal pain R10.9 [place] [address] [place] [id number] [place] [address] May, Depression, major, recurrent, moderate 296.32 ; COPD (chronic obstructive pulmonary disease) J44.9 ; Restless legs G25.81 ; Insomnia G47.00 ; Depression F32.9 ; HTN (hypertension) I10 and Hypercholesterolemia E78.0 [place] [address] [address] Apr, [place] [address] [address] Mar, Cellulitis L03.[address] [address] Feb, Recurrent major depression-severe F33.[address] [address] Feb, Hyperlipemia E78.5 and High blood pressure I10 [address] [address] Feb, COPD (chronic obstructive pulmonary disease) J44.9 ; Restless legs G25.81 ; Insomnia G47.00 ; Depression F32.9 and HTN (hypertension) I10 [place] [address] [place] [id number] [place] [address] Jan, [place] [address] [address] Jan, Generalized anxiety disorder F41.1 and Recurrent major depression- severe F33.[address] [address] Jan, Bronchitis J40 [place] [address] [place] [id number] [place] [address] Jan, Shoulder pain, right M25.511 and Low back pain M54.5 [facility] [address] [address] Jan, [facility] [id number] [place] [address] Oct, [facility] [address] [address] Oct, Generalized anxiety disorder 300.02 and Depression, major, severe recurrence 296.33 [facility] [address] [place] [id number] [place] [address] Oct, [facility] [address] [place] [id number] [place] [address] Oct, Depression, major, recurrent, moderate 296.32 [facility] [id number] [address] August, [facility] [address] [place] [id number] [place] [address] Jul, [facility] [id number], [place] [address] Jul, [facility] [address], [place] [address] Jun, [facility] [address], [place] [address] Jun, [facility] [id number] [place] [address] May, [facility] [id number], [place] [address] May, [facility] [address], [place] [address] May, [facility] [id number], [place] [address] May, [facility] [address] [place] [address] May, 2014 [facility] [place] [facility] [address] [id number] [place] [address] May, 2014 [facility] [place] [facility] [address] [id number] [place] [address] May, 2014 [facility] [place] [facility] [address] [facility] [id number] [place] [address] May, 2014 [facility] [place] [facility] [address] [id number] [place] [address] May, 2014 [facility] [place] [facility] [address] [id number] [place] [address] May, 2014 [facility] [place] [facility] [address] [facility] [id number] [place] [address] May, 2014 [facility] [place] [facility] [address] [facility] [id number] [place] [address] May, 2014 [facility] [place] [facility] [address] [facility] [id number], [place] [address] Apr, [facility] [place] [facility] [address] [facility] [id number] [place] [address] Apr, [facility] [place] [facility] [address] [facility] [id number] [place] [address] Apr, [facility] [place] [facility] [address] [facility] [id number], [place] [address] Apr, [facility] [place] [facility] [address] [facility] [id number], [place] [address] Apr, [facility] [place] [facility] [address] [id number], [place] [address] Apr, [facility] [place] [facility] [address] [facility] [id number], [place] [address] Apr, [facility] [place] [facility] [address] [facility] [id number], [place] [address] Apr, [facility] [place] [facility] [address] [id number] [place] [address] Apr, [facility] [place] [facility] [address] [id number] [place] [address] Apr, [facility] [place] [facility] [address] [id number] [place] [address] Mar, [facility] [place] [facility] [address] [id number] [place] [address] Mar, [facility] [place] [facility] [address] [id number] [place] [address] Mar, [facility] [place] [facility] [address] [id number] [place] [address] Mar, [facility] [place] [facility] [address] [id number] [place] [address] Mar, [facility] [place] [facility] [address] [id number] [place] [address] Feb, [facility] [place] [facility] [address] [id number] [place] [address] Feb, [facility] [place] [facility] [address] [id number] [place] [address] Dec, [facility] [place] [facility] [address] [id number] [place] [address] Dec, [facility] [place] [facility] [address] [id number] [place] [address] Nov, [facility] [place] [facility] [address] [id number] [place] [address] Nov, [facility] [place] [facility] [address] [id number] [place] [address] Nov, [facility] [place] [facility] [address] [id number] [place] [address] Nov, [facility] [place] [facility] [address] [id number] [place] [address] Oct, [facility] [place] [facility] [address] [id number] [place] [address] Oct, [facility] [place] [facility] [address] [id number] [place] [address] Sep, [facility] [place] [facility] [address] [id number] [place] [address] Sep, [facility] [place] [facility] [address] [id number] [place] [address] August, [facility] [place] [facility] [address] [id number] [place] [address] August, [facility] [place] [facility] [address] [id number] [place] [address] August, [facility] [place] [facility] [address] [id number] [place] [address] August, [facility] [place] [facility] [address] [id number] [place] [address] Jul, [facility] [place] [facility] [address] [id number] [place] [address] Jul, [facility] [place] [facility] [address] [id number] [place] [address] Jun, [facility] [place] [facility] [address] [id number] [place] [address] Jun, [facility] [place] [facility] [address] [id number] [place] [address] May, [facility] [place] [facility] [address] [id number] [place] [address] May, [facility] [place] [facility] [address] [id number] [place] [address] May, [facility] [place] [facility] [address] [id number] [place] [address] May, [facility] [place] [facility] [address] [id number] [place] [address] May, [facility] [place] [facility] [address] [id number] [place] [address] May, [facility] [place] [facility] [address] [id number] [place] [address] May, [facility] [place] [facility] [address] [id number] [place] [address] Apr, [facility] [place] [facility] [address] [id number] [place] [address] Apr, [facility] [place] [facility] [address] [id number] [place] [address] Apr, [facility] [place] [facility] [address] [id number] [place] [address] Apr, [facility] [place] [facility] [address] [id number] [place] [address] Apr, [facility] [place] [facility] [address] [id number] [place] [address] Apr, [facility] [place] [facility] [address] [id number] [place] [address] Apr, [facility] [place] [facility] [address] [id number] [place] [address] Apr, [facility] [place] [facility] [address] [id number] [place] [address] Apr, [facility] [place] [facility] [address] [id number] [place] [address] Apr, [facility] [place] [facility] [address] [id number] [place] [address] Mar, [facility] [place] [facility] [address] [id number] [place] [address] Mar, [facility] [place] [facility] [address] [id number] [place] [address] Mar, [facility] [place] [facility] [address] [id number] [place] [address] Mar, [facility] [place] [facility] [address] [id number] [place] [address] Feb, [facility] [place] [facility] [address] [id number] [place] [address] Feb, [facility] [place] [facility] [address] [id number] [place] [address] Feb, [facility] [place] [facility] [address] [id number] [place] [address] Feb, [facility] [place] [facility] [address] [id number] [place] [address] Feb, [facility] [place] [facility] [address] [id number] [place] [address] Feb, [facility] [place] [facility] [address] [id number] [place] [address] Jan, [facility] [place] [facility] [address] [id number] [place] [address] Jan, [facility] [place] [facility] [address] [id number], [place] [address] Dec, [facility] [place] [facility] [address] [id number], [place] [address] Dec, [facility] [place] [facility] [address] [id number], [place] [address] Nov, [facility] [place] [facility] [address] [id number] [place] [address] Nov, [facility] [place] [facility] [address] [id number], [place] [address] Oct, [facility] [place] [facility] [address] [id number], [place] [address] Sep, [facility] [place] [facility] [address] [id number] [place] [address] August, [facility] [address] [id number] [place] [address] 30 Jul, 2012 [facility] [place] [facility] [address] [id number] [place] [address] 14 Jul, 2012 [facility] [place] [facility] [address] [id number] [place] [address] Jul, [facility] [place] [facility] [address] [id number] [place] [address] Jul, [facility] [place] [facility] [address] [id number] [place] [address] Jul, [facility] [place] [facility] [address] [id number] [place] [address] Jun, [facility] [place] [facility] [address] [id number] [place] [address] May, [facility] [address] [id number] [place] [address] Apr, [facility] [place] [facility] [address] [id number] [place] [address] Mar, [facility] [place] [facility] [address] [id number] [place] [address] Mar, [facility] [place] [facility] [address] [id number] [place] [address] Mar, [facility] [place] [facility] [address] [id number] [place] [address] Jan, [facility] [place] [facility] [address] [id number] [place] [address] Jan, [facility] [place] [facility] [address] [id number] [place] [address] Jan, [facility] [place] [facility] [address] [id number] [place] [address] Jan, [facility] [place] [facility] [address] [id number] [place] [address] Dec, [facility] [place] [facility] [address] [id number] [place] [address] Dec, [facility] [place] [facility] [address] [id number] [place] [address] Nov, [facility] [place] [facility] [address] [id number] [place] [address] Nov, [facility] [place] [facility] [address] [id number] [place] [address] Nov, [facility] [place] [facility] [address] [id number] [place] [address] Nov, [facility] [place] [facility] [address] [id number] [place] [address] Nov, [facility] [place] [facility] [address] [id number] [place] [address] Oct, [facility] [place] [facility] [address] [id number] [place] [address] Oct, [facility] [place] [facility] [address] [id number] [place] [address] Oct, [facility] [place] [facility] [address] [id number] [place] [address] Sep, [facility] [place] [facility] [address] [id number] [place] [address] August, [facility] [place] [facility] [address] [id number] [place] [address] Jul, [facility] [place] [facility] [address] [id number] [place] [address] Jul, [facility] [place] [facility] [address] [id number] [place] [address] Jul, [facility] [place] [facility] [address] [id number] [place] [address] 05 Jul, 2011 [facility] [address] [id number] [place] [address] 29 Jun, 2011 [facility] [place] [facility] [address] [id number] [place] [address] 28 Jun, 2011 [facility] [place] [facility] [address] [facility] [id number] [place] [address] 23 Jun, 2011 [facility] [place] [facility] [address] [id number] [place] [address] 21 Jun, 2011 [facility] [place] [facility] [address] [id number] [place] [address] 15 Jun, 2011 [facility] [place] [facility] [address] [id number] [place] [address] 28 May, 2011 [facility] [address] [facility] [id number] [place] [address] 28 May, 2011 [facility] [place] [facility] [address] [facility] [id number] [place] [address] 27 May, 2011 [facility] [place] [facility] [address] [facility] [id number] [place] [address] 24 May, 2011 [facility] [place] [facility] [address] [facility] [id number] [place] [address] Apr, [facility] [place] [facility] [address] [facility] [id number] [place] [address] Mar, [facility] [place] [facility] [address] [id number] [place] [address] Mar, [facility] [place] [facility] [address] [facility] [id number] [place] [address] 17 Jun, 2010 [facility] [place] [facility] [address] [facility] [id number] [place] [address] 08 Feb, 2010 [facility] [place] [facility] [address] [facility] [id number] [place] [address] Jan, [facility] [place] [facility] [address] [id number] [address] Jan, [facility] [id number] [place] [address] Jan, [facility] [id number] [place] [address] Dec, [facility] [id number] [place] [address] May, [facility] [id number] [place] [address] Feb, [facility] [id number] [place] [address] Feb, [facility] [id number] [place] [address] Feb, IMMUNIZATIONS No Known Immunizations SOCIAL HISTORY Never Assessed REASON FOR VISIT Rash - FADY Swenson, Pt reports recurrent vomitting, Will need doctor's note for work since declan have hand, foot, and mouth PLAN OF CARE Activity Details Follow Up prn Reason:N/V, rash VITAL SIGNS Height 62 in 2017-11-20 Weight 183.6 lbs 2017-11-20 Temperature 98.2 degrees Fahrenheit 2017-11-20 Heart Rate 111 bpm 2017-11-20 Oximetry on room air:97 % 2017-11-20 BMI 33.58 kg/m2 2017-11-20 Blood pressure systolic 160 mmHg 2017-11-20 Blood pressure diastolic 100 mmHg 2017-11-20 MEDICATIONS Medication Instructions Dosage Frequency Start Date [...] affected area 12h Nov, 14 days Active Losartan Potassium 100 MG Orally Once a day 1 tablet 24h Dec, Active Melatonin 3 MG Orally Once a day 1 tablet at bedtime as needed with food 24h Active Atorvastatin Calcium 10 mg Orally Once a day 1 tablet 24h 13 May, 2016 Active Dulera 100-5 mcg/actuation 2 puffs by Inhalation route 2 times per day 12h 30 Jul, 2012 Active Albuterol Sulfate 2.5 mg /3 mL (0.083 %) Inhalation every 4-6 hours as needed 1 Each by Inhalation route every 4 hours for cough and wheeze PRN for wheezing or cough; Jun, Active Cymbalta 60 MG Orally twice a day 1 capsule 12h Nov, Active Remeron 30 MG Orally Once a day at bedtime 1 tablet Feb, Active Klonopin 0.5 MG Orally Twice a day as needed 1 tablet Nov, Active Zofran 8 MG Orally Twice a day prn nausea 1 tablet Nov, 07 days Active Omeprazole 20 mg Orally Once a day 1 capsule 24h Active RESULTS No Results PROCEDURES No Known [...]
--- OUTSIDE RECORDS SUMMARY | 2018-11-21 22:00 | XMS REPORT ---
Author Author LOVELACEТАТЬЯНА RyderELE Organization [facility] Address [address] [place] [address] Care Team Providers Care Keyboard Specialist Name Role Phone LOVELACETUSHAR Ryder Unavailable PROBLEMS Type Condition ICD9-CM Code VFK05-SX Code Onset Dates Condition Status SNOMED Code Problem Generalized anxiety disorder F41.1 Active 80287834 Problem Hypercholesterolemia E78.00 Active 81867788 Problem Body mass index (BMI) of 32.0-32.9 in adult Z68.32 Active 396937382 Problem Chronic obstructive pulmonary disease, unspecified COPD type J44.9 Active 54374231 Problem Insomnia G47.00 Active 764872191 Problem Other depression F32.89 Active 231827796 Problem Facet arthropathy, lumbar M46.96 Active 985817928 Problem Lumbar spondylosis M47.816 Active 609120036 Problem Lumbago with sciatica, unspecified side M54.40 Active 13804001 Problem Other obesity due to excess calories E66.09 Active 056897924 Problem COPD exacerbation J44.1 Active 559846133 Problem Other chronic pain G89.29 Active 53217496 Problem Restless legs G25.81 Active 61657668 Problem Constipation due to outlet dysfunction K59.02 Active 88073726 Problem COPD (chronic obstructive pulmonary disease) J44.9 Active 00989863 Problem Depression F32.9 Active 80449463 Problem Anxiety F41.9 Active 32923916 Problem Gastroesophageal reflux disease with esophagitis K21.0 Active 548207087 Problem Essential hypertension I10 Active 13976632 Problem Severe episode of recurrent major depressive disorder, without psychotic features F33.2 Active 26925703 Problem Major depressive disorder, recurrent episode, moderate with anxious distress F33.1 Active 805113363 Problem Psychophysiological insomnia F51.04 Active [id number] ALLERGIES No Known Allergies ENCOUNTERS Encounter Location Date Diagnosis [facility] [address] [facility] [id number], [place] [address] Nov, [place] [id number] [place] [address] Nov, COPD (chronic obstructive pulmonary disease) J44.9 ; Essential hypertension I10 ; Lumbar spondylosis M47.816 ; Generalized anxiety disorder F41.1 ; Rash and nonspecific skin eruption R21 ; Pain in joints of right hand M25.541 ; Pain in joints of left hand M25.542 and Hypercholesterolemia E78.00 [place] [id number] [place] [address] Nov, Rash and nonspecific skin eruption R21 and Non-intractable vomiting with nausea, unspecified vomiting type R11.2 [place] [id number] [place] [address] Oct, [place] [address] [address] Sep, Pain aggravated by standing R52 [place] [id number] [place] [address] Sep, Other depression F32.[address] [address] Sep, Chronic obstructive pulmonary disease, unspecified COPD type J44.9 ; Pain aggravated by standing R52 ; Other depression F32.89 ; Major depressive disorder, recurrent episode, moderate with anxious distress F33.1 ; Restless legs G25.81 ; Insomnia G47.00 ; Gastroesophageal reflux disease with esophagitis K21.0 ; Essential hypertension I10 ; Generalized anxiety disorder F41.1 and Hypercholesterolemia E78.00 [place] [id number] [place] [address] Jul, Fever, unspecified fever cause R50.9 and Cough R05 [place] [id number] [place] [address] Jul, [place] [id number] [place] [address] Jul, Gastroesophageal reflux disease with esophagitis K21.0 [place] [id number] [place] [address] Jul, [place] [id number] [place] [address] Jun, COPD (chronic obstructive pulmonary disease) J44.9 ; Restless legs G25.81 ; Insomnia G47.00 ; Essential hypertension I10 ; Major depressive disorder, recurrent episode, moderate with anxious distress F33.1 ; Gastroesophageal reflux disease with esophagitis K21.0 ; Constipation due to outlet dysfunction K59.02 ; Hypercholesterolemia E78.00 ; Other chronic pain G89.29 and Generalized abdominal pain R10.84 [place] [id number] [place] [address] Jun, [place] [address] [address] Jun, Acute recurrent sinusitis, unspecified location J01.91 and COPD exacerbation J44.1 [place] [id number] [place] [address] Jun, Lumbago with sciatica, unspecified side M54.40 [place] [id number] [place] [address] May, [place] [id number] [place] [address] May, Severe episode of recurrent major depressive disorder, without psychotic features F33.2 [place] [id number] [place] [address] Apr, COPD (chronic obstructive pulmonary disease) J44.9 [...] index (BMI) of 32.0-32.9 in adult Z68.32 [place] [id number] [place] [address] Apr, Severe episode of recurrent major depressive disorder, without psychotic features F33.2 [place] [id number] [place] [address] Feb, Severe episode of recurrent major depressive disorder, without psychotic features F33.2 and Restless legs G25.81 [place] [id number] [place] [address] Feb, Severe episode of recurrent major depressive disorder, without psychotic features F33.2 ; Generalized anxiety disorder F41.1 and Psychophysiological insomnia F51.04 [place] [id number] [place] [address] Dec, Severe episode of recurrent major depressive disorder, without psychotic features F33.2 ; Generalized anxiety disorder F41.1 and Psychophysiological insomnia F51.04 [place] [id number] [place] [address] Nov, Severe episode of recurrent major depressive disorder, without psychotic features F33.2 ; Generalized anxiety disorder F41.1 and Psychophysiological insomnia F51.04 [place] [id number] [place] [address] Nov, [place] [id number] [place] [address] Nov, Depression F32.9 [place] [id number] [place] [address] Nov, Depression F32.9 ; Insomnia G47.00 and Anxiety F41.9 [place] [id number] [place] [address] August, COPD (chronic obstructive pulmonary disease) J44.9 ; Depression F32.9 ; Anxiety F41.9 ; Major depressive disorder, recurrent episode, moderate with anxious distress F33.1 ; Insomnia G47.00 ; Restless legs G25.81 ; Essential hypertension I10 and Pure hypercholesterolemia E78.00 [facility] [address] [place] [address] August, Acute intractable tension-type headache G44.201 [facility] [id number] [place] [address] Jul, Left wrist pain M25.532 and Strain of left wrist, initial encounter S66.912A [facility] [id number] [place] [address] 14 May, 2016 Gastroesophageal reflux disease with esophagitis K21.0 and Anxiety F41.9 [place] [id number] [place] [address] 13 May, 2016 Major depressive disorder, recurrent episode, moderate with anxious distress F33.1 ; COPD (chronic obstructive pulmonary disease) J44.9 ; Restless legs G25.81 ; Insomnia G47.00 ; Essential hypertension I10 ; Anxiety F41.9 ; Constipation due to outlet dysfunction K59.02 ; Torsion of intestine, bowel or colon K56.2 ; Hypercholesterolemia E78.00 and Gastroesophageal reflux disease with esophagitis K21.0 [place] [address] [place] [address] 07 Feb, 2016 [place] [id number] [place] [address] 20 Dec, 2015 Essential hypertension I10 ; Depression F32.9 ; Anxiety F41.9 ; Constipation due to outlet dysfunction K59.02 ; Torsion of intestine, bowel or colon K56.2 ; COPD (chronic obstructive pulmonary disease) J44.9 ; Insomnia G47.00 ; Restless legs G25.81 and Gastroesophageal reflux disease with esophagitis K21.0 [place] [id number] [place] [address] 08 Dec, 2015 Essential hypertension I10 ; Major depressive disorder, recurrent episode, moderate with anxious distress F33.1 ; COPD (chronic obstructive pulmonary disease) J44.9 ; Restless legs G25.81 ; Insomnia G47.00 ; Constipation due to outlet dysfunction K59.02 and Gastroesophageal reflux disease without esophagitis K21.9 [place] [id number] [place] [address] 07 Dec, 2015 Major depressive disorder, recurrent episode, moderate with anxious distress F33.1 [place] [address] [address] Sep, [place] [address] [address] 23 Sep, 2015 Nausea R11.[address] [address] 15 Sep, 2015 Lower abdominal pain R10.30 ; COPD (chronic obstructive pulmonary disease) J44.9 ; Restless legs G25.81 ; Essential hypertension I10 ; Depression F32.9 ; Other chronic pain G89.29 ; Lumbago with sciatica, unspecified side M54.40 and Primary insomnia F51.01 [place] [id number] [place] [address] August, [address] [address] August, COPD (chronic obstructive pulmonary disease) J44.9 ; Insomnia G47.00 ; Depression F32.9 and Constipation due to outlet dysfunction K59.02 [place] [id number] [place] [address] August, [place] [id number] [place] [address] August, [address] [address] August, Nausea & vomiting R11.2 [place] [id number] [place] [address] Jun, [address] [address] Jun, Unspecified abdominal pain R10.9 ; Depression, major, recurrent, moderate 296.32 ; COPD (chronic obstructive pulmonary disease) J44.9 ; Restless legs G25.81 ; Insomnia G47.00 ; Intestinal abscess K63.0 ; HTN (hypertension) I10 and Hypercholesteremia E78.0 [place] [address] [address] Jun, Intestinal abscess K63.0 [place] [address] [address] May, [place] [address] [address] May, [place] [address] [address] May, Unspecified abdominal pain R10.[address] [address] May, Depression, major, recurrent, moderate 296.32 ; COPD (chronic obstructive pulmonary disease) J44.9 ; Restless legs G25.81 ; Insomnia G47.00 ; Depression F32.9 ; HTN (hypertension) I10 and Hypercholesterolemia E78.0 [place] [id number] [place] [address] Apr, [address] [address] Mar, Cellulitis L03.[address] [address] Feb, Recurrent major depression-severe F33.[address] [address] Feb, Hyperlipemia E78.5 and High blood pressure I10 [address] [address] Feb, COPD (chronic obstructive pulmonary disease) J44.9 ; Restless legs G25.81 ; Insomnia G47.00 ; Depression F32.9 and HTN (hypertension) I10 [facility] [address] [address] Jan, [facility] [address] [address] Jan, Generalized anxiety disorder F41.1 and Recurrent major depression- severe F33.2 [facility] [address] [address] Jan, Bronchitis J40 [place] [address] [address] Jan, Shoulder pain, right M25.511 and Low back pain M54.5 [place] [address] [address] Jan, [facility] [address] [address] Oct, [facility] [address] [address] Oct, Generalized anxiety disorder 300.02 and Depression, major, severe recurrence 296.33 [facility] [address] [id number] [place] [address] Oct, [facility] [address] [address] Oct, Depression, major, recurrent, moderate 296.32 [facility] [address] [id number] [place] [address] August, [facility] [address] [address] Jul, [facility] [address] [address] 13 Jul, 2014 [facility] [address] [address] Jun, [facility] [place] [facility] [address] [id number] [place] [address] Jun, [facility] [place] [facility] [address] [id number] [place] [address] May, 2014 [facility] [place] [facility] [address] [facility] [id number] [place] [address] May, 2014 [facility] [place] [facility] [address] [id number] [place] [address] May, 2014 [facility] [place] [facility] [address] [id number] [place] [address] May, 2014 [facility] [place] [facility] [address] [facility] [id number] [place] [address] May, 2014 [facility] [place] [facility] [address] [facility] [id number] [place] [address] May, 2014 [facility] [place] [facility] [address] [facility] [id number] [place] [address] May, 2014 [facility] [place] [facility] [address] [facility] [id number] [place] [address] May, 2014 [facility] [place] [facility] [address] [facility] [id number] [place] [address] May, 2014 [facility] [place] [facility] [address] [facility] [id number] [place] [address] May, 2014 [facility] [place] [facility] [address] [facility] [id number] [place] [address] May, 2014 [facility] [place] [facility] [address] [facility] [id number] [place] [address] May, 2014 [facility] [place] [facility] [address] [facility] [id number] [place] [address] Apr, [facility] [place] [facility] [address] [facility] [id number] [place] [address] Apr, [facility] [place] [facility] [address] [id number] [place] [address] Apr, [facility] [place] [facility] [address] [id number] [place] [address] Apr, [facility] [place] [facility] [address] [id number] [place] [address] Apr, [facility] [place] [facility] [address] [id number] [place] [address] Apr, [facility] [place] [facility] [address] [id number] [place] [address] Apr, [facility] [place] [facility] [address] [id number] [place] [address] Apr, [facility] [place] [facility] [address] [id number] [place] [address] Apr, [facility] [place] [facility] [address] [id number] [place] [address] Apr, [facility] [place] [facility] [address] [id number] [place] [address] Mar, [facility] [place] [facility] [address] [id number] [place] [address] Mar, [facility] [place] [facility] [address] [id number] [place] [address] Mar, [facility] [place] [facility] [address] [id number], [place] [address] Mar, [facility] [place] [facility] [address] [id number] [place] [address] Mar, [facility] [place] [facility] [address] [id number] [place] [address] Feb, [facility] [place] [facility] [address] [id number], [place] [address] Feb, [facility] [place] [facility] [address] [id number], [place] [address] Dec, [facility] [place] [facility] [address] [id number] [place] [address] Dec, [facility] [place] [facility] [address] [id number] [place] [address] Nov, [facility] [place] [facility] [address] [id number] [place] [address] Nov, [facility] [place] [facility] [address] [id number] [place] [address] Nov, [facility] [place] [facility] [address] [id number] [place] [address] Nov, [facility] [place] [facility] [address] [id number] [place] [address] Oct, [facility] [place] [facility] [address] [id number] [place] [address] Oct, [facility] [place] [facility] [address] [id number] [place] [address] Sep, [facility] [place] [facility] [address] [id number] [place] [address] Sep, [facility] [place] [facility] [address] [id number] [place] [address] August, [facility] [place] [facility] [address] [id number] [place] [address] August, [facility] [place] [facility] [address] [id number] [place] [address] August, [facility] [place] [facility] [address] [id number] [place] [address] August, [facility] [place] [facility] [address] [id number] [place] [address] Jul, [facility] [place] [facility] [address] [id number] [place] [address] Jul, [facility] [place] [facility] [address] [id number] [place] [address] Jun, [facility] [place] [facility] [address] [id number] [place] [address] Jun, [facility] [place] [facility] [address] [id number] [place] [address] May, [facility] [place] [facility] [address] [id number] [place] [address] May, [facility] [place] [facility] [address] [id number] [place] [address] May, [facility] [place] [facility] [address] [id number] [place] [address] May, [facility] [place] [facility] [address] [id number] [place] [address] May, [facility] [place] [facility] [address] [id number] [place] [address] May, [facility] [place] [facility] [address] [id number] [place] [address] May, [facility] [place] [facility] [address] [id number] [place] [address] Apr, [facility] [place] [facility] [address] [id number] [place] [address] Apr, [facility] [place] [facility] [address] [id number] [place] [address] Apr, [facility] [place] [facility] [address] [id number] [place] [address] Apr, [facility] [place] [facility] [address] [id number] [place] [address] Apr, [facility] [place] [facility] [address] [id number] [place] [address] Apr, [facility] [place] [facility] [address] [id number], [place] [address] Apr, [facility] [place] [facility] [address] [id number] [place] [address] Apr, [facility] [place] [facility] [address] [id number] [place] [address] Apr, [facility] [place] [facility] [address] [id number] [place] [address] Apr, [facility] [place] [facility] [address] [id number] [place] [address] Mar, [facility] [place] [facility] [address] [id number] [place] [address] Mar, [facility] [place] [facility] [address] [id number] [place] [address] Mar, [facility] [place] [facility] [address] [id number] [place] [address] Mar, [facility] [place] [facility] [address] [id number] [place] [address] Feb, [facility] [place] [facility] [address] [id number] [place] [address] Feb, [facility] [place] [facility] [address] [id number] [place] [address] Feb, [facility] [place] [facility] [address] [id number], [place] [address] Feb, [facility] [place] [facility] [address] [id number], [place] [address] Feb, [facility] [place] [facility] [address] [id number], [place] [address] Feb, [facility] [place] [facility] [address] [id number], [place] [address] 10 Jan, 2013 [facility] [place] [facility] [address] [id number] [place] [address] 10 Jan, 2013 [facility] [place] [facility] [address] [id number] [place] [address] 05 Dec, 2012 [facility] [address] [id number] [place] [address] Dec, [facility] [address] [id number] [place] [address] Nov, [facility] [address] [id number] [place] [address] Nov, [facility] [address] [id number] [place] [address] Oct, [facility] [address] [id number] [place] [address] Sep, [facility] [address] [id number] [place] [address] August, [facility] [address] [id number] [place] [address] Jul, [facility] [address] [id number] [place] [address] Jul, [facility] [address] [id number] [place] [address] Jul, [facility] [address] [id number] [place] [address] Jul, [facility] [address] [id number] [place] [address] Jul, [facility] [address] [id number] [place] [address] Jun, [facility] [place] [facility] [address] [id number] [place] [address] May, [facility] [place] [facility] [address] [id number] [place] [address] Apr, [facility] [place] [facility] [address] [id number] [place] [address] Mar, [facility] [place] [facility] [address] [id number] [place] [address] Mar, [facility] [place] [facility] [address] [id number] [place] [address] Mar, [facility] [place] [facility] [address] [id number] [place] [address] Jan, [facility] [place] [facility] [address] [id number] [place] [address] Jan, [facility] [place] [facility] [address] [id number] [place] [address] Jan, [facility] [place] [facility] [address] [id number] [place] [address] Jan, [facility] [place] [facility] [address] [id number] [place] [address] Dec, [facility] [place] [facility] [address] [id number] [place] [address] Dec, [facility] [place] [facility] [address] [id number] [place] [address] Nov, [facility] [place] [facility] [address] [id number] [place] [address] Nov, [facility] [place] [facility] [address] [id number], [place] [address] Nov, [facility] [place] [facility] [address] [id number], [place] [address] Nov, [facility] [place] [facility] [address] [id number] [place] [address] Nov, [facility] [place] [facility] [address] [id number], [place] [address] Oct, [facility] [place] [facility] [address] [id number] [place] [address] Oct, [facility] [place] [facility] [address] [id number] [place] [address] Oct, [facility] [place] [facility] [address] [id number] [place] [address] Sep, [facility] [place] [facility] [address] [id number] [place] [address] August, [facility] [place] [facility] [address] [id number] [place] [address] Jul, [facility] [place] [facility] [address] [id number] [place] [address] Jul, [facility] [place] [facility] [address] [id number] [place] [address] Jul, [facility] [place] [facility] [address] [id number] [place] [address] Jul, [facility] [place] [facility] [address] [id number] [place] [address] Jun, [facility] [place] [facility] [address] [id number] [place] [address] Jun, [facility] [place] [facility] [address] [id number] [place] [address] Jun, [facility] [place] [facility] [address] [facility] [id number] [place] [address] Jun, [facility] [place] [facility] [address] [id number] [place] [address] Jun, [facility] [place] [facility] [address] [id number] [place] [address] May, [facility] [place] [facility] [address] [id number] [place] [address] May, [facility] [place] [facility] [address] [id number] [place] [address] May, [facility] [place] [facility] [address] [id number] [place] [address] May, [facility] [address] [facility] [id number], [place] [address] Apr, [facility] [address] [facility] [id number], [place] [address] Mar, [facility] [address] [facility] [id number], [place] [address] Mar, [facility] [address] [facility] [id number], [place] [address] Jun, [facility] [address] [facility] [id number], [place] [address] Feb, [facility] [address] [facility] [id number], [place] [address] Jan, [facility] [address] [id number], [place] [address] Jan, [facility] [id number], [place] [address] Jan, [facility] [address] [id number], [place] [address] Dec, [facility] [id number], [place] [address] May, [facility] [id number], [place] [address] Feb, [facility] [id number], [place] [address] Feb, [facility] [address] [id number], [place] [address] Feb, IMMUNIZATIONS No Known Immunizations SOCIAL HISTORY Never Assessed REASON FOR VISIT COPD-FADY Kaufman, Fell on Thursday at 7:30 am and couldn't feel her left leg u ntil 5:30 pm, now her back is hurting her, pt in tears wishing she had her xanax back PLAN OF CARE Activity Details Follow Up 3 Months, prn Reason:CHM/COPD VITAL SIGNS Height 62 in 2017-09-22 Weight 182.5 lbs 2017-09-22 Temperature 97.7 degrees Fahrenheit 2017-09-22 Heart Rate 88 bpm 2017-09-22 Respiratory Rate 20 2017-09-22 BMI 33.38 kg/m2 2017-09-22 Blood pressure systolic 122 mmHg 2017-09-22 Blood pressure diastolic 84 mmHg 2017-09-22 MEDICATIONS Medication Instructions Dosage Frequency Start Date End Date Duration Status Ibuprofen 800 MG Orally Three times a day PRN 1 tablet Oct, Active Melatonin 3 MG Orally Once a day 1 tablet at bedtime as needed with food 24h Active Omeprazole 20 mg Orally Once a day 1 capsule 24h Active Remeron 30 MG Orally Once a day at bedtime 1 tablet Feb, Active PredniSONE 10 MG Orally Once a day 4 tablets for 4 days, 4 tablets for 4 days, 2 tablets for 4 days, one tablet for 4 days 24h Sep, Sep, 16 days Active Dulera 100-5 mcg/actuation 2 puffs by Inhalation route 2 times per day 12h Jul, Active Gabapentin 300 MG Orally Three times a day 1 capsule 8h 08 May, 2015 30 days Active Klonopin 0.5 MG Orally Twice a day as needed 1 tablet Nov, Active Atorvastatin Calcium 10 mg Orally Once a day 1 tablet 24h May, Active Baclofen 10 mg Orally Three times a day 1 tablet with food or milk 8h Sep, Oct, 30 day(s) Active Albuterol Sulfate 2.5 mg /3 mL (0.083 %) Inhalation every 4-6 hours as needed 1 Each by Inhalation route every 4 hours for cough and wheeze PRN for wheezing or cough; Jun, Active Losartan Potassium 100 MG Orally Once a day 1 tablet 24h Dec, Active Cymbalta 20 mg Orally twice a day 3 capsule 12h Nov, 30 days Active MiraLax 17 gm/dose Orally Once a day prn 1 packet mixed with 8 ounces of fluid May, Apr, 12 months Active RESULTS Name Result Date Reference Range Xray : Spine, Lumbar 2-3 views (IN HOUSE) 2017-09-22 Xray : Coccyx 2 veiw (IN HOUSE) 2017-09-22 PROCEDURES Procedure Date Ordered Result Body Site X-RAY EXAM OF TAILBONE September 22, 2017 INSTRUCTIONS MEDICATIONS ADMINISTERED No Known Medications [...]
--- OUTSIDE RECORDS SUMMARY | 2018-11-21 22:00 | XMS REPORT ---
Author Author LOVELACETUSHAR Ryder Organization [facility] Address [address] [place] [address] Care Team Providers Care Jewel Bearing Facer Name Role Phone LOVELACETUSHAR Ryder Unavailable PROBLEMS Type Condition ICD9-CM Code TLD47-MW Code Onset Dates Condition Status SNOMED Code Problem Generalized anxiety disorder F41.1 Active 00719586 Problem Hypercholesterolemia E78.00 Active 96970585 Problem Body mass index (BMI) of 32.0-32.9 in adult Z68.32 Active 048482902 Problem Chronic obstructive pulmonary disease, unspecified COPD type J44.9 Active 02235990 Problem Insomnia G47.00 Active 521179417 Problem Other depression F32.89 Active 404618119 Problem Facet arthropathy, lumbar M46.96 Active 486998907 Problem Lumbar spondylosis M47.816 Active 025256251 Problem Lumbago with sciatica, unspecified side M54.40 Active 36325505 Problem Other obesity due to excess calories E66.09 Active 848542106 Problem COPD exacerbation J44.1 Active 713382252 Problem Other chronic pain G89.29 Active 09279382 Problem Restless legs G25.81 Active 00451321 Problem Constipation due to outlet dysfunction K59.02 Active 86770352 Problem COPD (chronic obstructive pulmonary disease) J44.9 Active 18065098 Problem Depression F32.9 Active 52606377 Problem Anxiety F41.9 Active 04162914 Problem Gastroesophageal reflux disease with esophagitis K21.0 Active 218309040 Problem Essential hypertension I10 Active 29356014 Problem Severe episode of recurrent major depressive disorder, without psychotic features F33.2 Active 04057076 Problem Major depressive disorder, recurrent episode, moderate with anxious distress F33.1 Active 685545959 Problem Psychophysiological insomnia F51.04 Active [id number] ALLERGIES No Information ENCOUNTERS Encounter Location Date Diagnosis [facility] [address] [facility] [id number] [address] Dec, [place] [id number] [place] [address] Dec, Edema of lower extremity R60.0 [place] [id number] [place] [address] Dec, [place] [id number] [place] [address] Nov, Essential hypertension I10 [place] [address] [address] Nov, [place] [address] [address] Nov, Severe episode of recurrent major depressive disorder, without psychotic features F33.2 ; Generalized anxiety disorder F41.1 and Psychophysiological insomnia F51.04 [place] [id number] [place] [address] Nov, COPD (chronic obstructive pulmonary disease) J44.9 ; Essential hypertension I10 ; Lumbar spondylosis M47.816 ; Generalized anxiety disorder F41.1 ; Rash and nonspecific skin eruption R21 ; Pain in joints of right hand M25.541 ; Pain in joints of left hand M25.542 and Hypercholesterolemia E78.00 [place] [id number] [place] [address] Nov, Rash and nonspecific skin eruption R21 and Non-intractable vomiting with nausea, unspecified vomiting type R11.2 [place] [id number] [place] [address] Oct, [place] [id number] [place] [address] Sep, Pain aggravated by standing R52 [place] [id number] [place] [address] Sep, Other depression F32.89 [place] [id number] [place] [address] Sep, Chronic obstructive pulmonary disease, unspecified COPD type J44.9 ; Pain aggravated by standing R52 ; Other depression F32.89 ; Major depressive disorder, recurrent episode, moderate with anxious distress F33.1 ; Restless legs G25.81 ; Insomnia G47.00 ; Gastroesophageal reflux disease with esophagitis K21.0 ; Essential hypertension I10 ; Generalized anxiety disorder F41.1 and Hypercholesterolemia E78.[address] [address] Jul, Fever, unspecified fever cause R50.9 and Cough R05 [address] [address] Jul, [address] [address] Jul, Gastroesophageal reflux disease with esophagitis K21.[address] [address] Jul, [place] [address] [address] Jun, COPD (chronic obstructive pulmonary disease) J44.9 ; Restless legs G25.81 ; Insomnia G47.00 ; Essential hypertension I10 ; Major depressive disorder, recurrent episode, moderate with anxious distress F33.1 ; Gastroesophageal reflux disease with esophagitis K21.0 ; Constipation due to outlet dysfunction K59.02 ; Hypercholesterolemia E78.00 ; Other chronic pain G89.29 and Generalized abdominal pain R10.84 [place] [address] [address] Jun, [address] [address] Jun, Acute recurrent sinusitis, unspecified location J01.91 and COPD exacerbation J44.[address] [address] 07 Jun, 2017 Lumbago with sciatica, unspecified side M54.[address] [id number] [address] May, [place] [id number] [place] [address] May, Severe episode of recurrent major depressive disorder, without psychotic features F33.2 [place] [id number] [place] [address] Apr, COPD (chronic obstructive pulmonary disease) J44.9 [...] index (BMI) of 32.0-32.9 in adult Z68.32 [place] [id number] [place] [address] Apr, Severe episode of recurrent major depressive disorder, without psychotic features F33.2 [place] [id number] [place] [address] Feb, Severe episode of recurrent major depressive disorder, without psychotic features F33.2 and Restless legs G25.81 [place] [id number] [place] [address] Feb, Severe episode of recurrent major depressive disorder, without psychotic features F33.2 ; Generalized anxiety disorder F41.1 and Psychophysiological insomnia F51.04 [place] [id number] [place] [address] Dec, Severe episode of recurrent major depressive disorder, without psychotic features F33.2 ; Generalized anxiety disorder F41.1 and Psychophysiological insomnia F51.04 [place] [id number] [place] [address] Nov, Severe episode of recurrent major depressive disorder, without psychotic features F33.2 ; Generalized anxiety disorder F41.1 and Psychophysiological insomnia F51.04 [place] [id number] [place] [address] Nov, [place] [id number] [place] [address] Nov, Depression F32.9 [place] [id number] [place] [address] Nov, Depression F32.9 ; Insomnia G47.00 and Anxiety F41.9 [place] [id number] [place] [address] August, COPD (chronic obstructive pulmonary disease) J44.9 ; Depression F32.9 ; Anxiety F41.9 ; Major depressive disorder, recurrent episode, moderate with anxious distress F33.1 ; Insomnia G47.00 ; Restless legs G25.81 ; Essential hypertension I10 and Pure hypercholesterolemia E78.00 [place] [id number] [place] [address] August, Acute intractable tension-type headache G44.201 [facility] [id number] [place] [address] Jul, Left wrist pain M25.532 and Strain of left wrist, initial encounter S66.912A [place] [id number] [place] [address] 14 May, 2016 Gastroesophageal reflux disease with esophagitis K21.0 and Anxiety F41.9 [place] [id number] [place] [address] 13 May, 2016 Major depressive disorder, recurrent episode, moderate with anxious distress F33.1 ; COPD (chronic obstructive pulmonary disease) J44.9 ; Restless legs G25.81 ; Insomnia G47.00 ; Essential hypertension I10 ; Anxiety F41.9 ; Constipation due to outlet dysfunction K59.02 ; Torsion of intestine, bowel or colon K56.2 ; Hypercholesterolemia E78.00 and Gastroesophageal reflux disease with esophagitis K21.0 [place] [address] [id number] [address] 07 Feb, 2016 [place] [id number] [place] [address] 20 Dec, 2015 Essential hypertension I10 ; Depression F32.9 ; Anxiety F41.9 ; Constipation due to outlet dysfunction K59.02 ; Torsion of intestine, bowel or colon K56.2 ; COPD (chronic obstructive pulmonary disease) J44.9 ; Insomnia G47.00 ; Restless legs G25.81 and Gastroesophageal reflux disease with esophagitis K21.0 [place] [id number] [place] [address] 08 Dec, 2015 Essential hypertension I10 ; Major depressive disorder, recurrent episode, moderate with anxious distress F33.1 ; COPD (chronic obstructive pulmonary disease) J44.9 ; Restless legs G25.81 ; Insomnia G47.00 ; Constipation due to outlet dysfunction K59.02 and Gastroesophageal reflux disease without esophagitis K21.9 [place] [id number] [place] [address] 07 Dec, 2015 Major depressive disorder, recurrent episode, moderate with anxious distress F33.1 [place] [id number] [place] [address] Sep, [place] [id number] [place] [address] 23 Sep, 2015 Nausea R11.0 [place] [id number] [place] [address] 15 Sep, 2015 Lower abdominal pain R10.30 ; COPD (chronic obstructive pulmonary disease) J44.9 ; Restless legs G25.81 ; Essential hypertension I10 ; Depression F32.9 ; Other chronic pain G89.29 ; Lumbago with sciatica, unspecified side M54.40 and Primary insomnia F51.01 [place] [id number] [place] [address] August, [place] [address] [address] August, COPD (chronic obstructive pulmonary disease) J44.9 ; Insomnia G47.00 ; Depression F32.9 and Constipation due to outlet dysfunction K59.02 [place] [id number] [place] [address] August, [place] [address] [address] August, [place] [address] [address] August, Nausea & vomiting R11.2 [place] [address] [address] Jun, [place] [address] [address] Jun, Unspecified abdominal pain R10.9 ; Depression, major, recurrent, moderate 296.32 ; COPD (chronic obstructive pulmonary disease) J44.9 ; Restless legs G25.81 ; Insomnia G47.00 ; Intestinal abscess K63.0 ; HTN (hypertension) I10 and Hypercholesteremia E78.0 [place] [id number] [place] [address] Jun, Intestinal abscess K63.0 [place] [id number] [place] [address] May, [place] [id number] [place] [address] May, [place] [id number] [place] [address] May, Unspecified abdominal pain R10.9 [place] [id number] [place] [address] May, Depression, major, recurrent, moderate 296.32 ; COPD (chronic obstructive pulmonary disease) J44.9 ; Restless legs G25.81 ; Insomnia G47.00 ; Depression F32.9 ; HTN (hypertension) I10 and Hypercholesterolemia E78.0 [place] [id number] [place] [address] Apr, [place] [address] [address] Mar, Cellulitis L03.90 [place] [address] [address] Feb, Recurrent major depression-severe F33.2 [place] [address] [address] Feb, Hyperlipemia E78.5 and High blood pressure I10 [place] [address] [address] Feb, COPD (chronic obstructive pulmonary disease) J44.9 ; Restless legs G25.81 ; Insomnia G47.00 ; Depression F32.9 and HTN (hypertension) I10 [place] [address] [address] Jan, [place] [address] [address] Jan, Generalized anxiety disorder F41.1 and Recurrent major depression- severe F33.2 [place] [address] [address] Jan, Bronchitis J40 [place] [address] [address] Jan, Shoulder pain, right M25.511 and Low back pain M54.5 [place] [address] [address] Jan, [place] [address] [address] Oct, [place] [address] [address] Oct, Generalized anxiety disorder 300.02 and Depression, major, severe recurrence 296.33 [facility] [address] [address] Oct, [facility] [id number] [place] [address] Oct, Depression, major, recurrent, moderate 296.32 [facility] [id number] [place] [address] August, [facility] [id number] [place] [address] Jul, [facility] [id number] [place] [address] Jul, [facility] [id number] [place] [address] Jun, [facility] [id number] [place] [address] Jun, [facility] [address] [address] May, [facility] [id number] [place] [address] May, [facility] [address] [address] May, [facility] [address] [address] May, [facility] [address] [address] May, [facility] [address] [address] May, [facility] [address] [address] May, [facility] [address] [address] May, [facility] [place] [facility] [address] [id number] [place] [address] May, [facility] [place] [facility] [address] [id number] [place] [address] May, [facility] [place] [facility] [address] [id number] [place] [address] May, [facility] [place] [facility] [address] [id number] [place] [address] May, [facility] [place] [facility] [address] [id number] [place] [address] Apr, [facility] [place] [facility] [address] [id number] [place] [address] Apr, [facility] [place] [facility] [address] [id number] [place] [address] Apr, [facility] [place] [facility] [address] [id number] [place] [address] Apr, [facility] [place] [facility] [address] [id number] [place] [address] Apr, [facility] [place] [facility] [address] [id number] [place] [address] Apr, [facility] [place] [facility] [address] [id number] [address] Apr, [facility] [place] [facility] [address] [id number] [address] Apr, [facility] [place] [facility] [address] [id number] [address] Apr, [facility] [place] [facility] [address] [id number] [address] Apr, [facility] [place] [facility] [address] [id number] [place] [address] Mar, [facility] [place] [facility] [address] [id number] [place] [address] 16 Mar, 2014 [facility] [place] [facility] [address] [id number] [place] [address] 16 Mar, 2014 [facility] [place] [facility] [address] [id number] [place] [address] Mar, [facility] [place] [facility] [address] [id number] [place] [address] Mar, [facility] [place] [facility] [address] [id number] [place] [address] Feb, [facility] [place] [facility] [address] [id number] [place] [address] Feb, [facility] [place] [facility] [address] [id number] [place] [address] Dec, [facility] [place] [facility] [address] [id number] [place] [address] Dec, [facility] [place] [facility] [address] [id number] [place] [address] Nov, [facility] [place] [facility] [address] [id number] [place] [address] Nov, [facility] [place] [facility] [address] [id number] [place] [address] Nov, [facility] [place] [facility] [address] [id number] [place] [address] Nov, [facility] [place] [facility] [address] [id number] [place] [address] Oct, [facility] [place] [facility] [address] [id number] [place] [address] Oct, [facility] [place] [facility] [address] [id number] [place] [address] Sep, [facility] [place] [facility] [address] [id number] [place] [address] Sep, [facility] [place] [facility] [address] [id number] [place] [address] August, [facility] [place] [facility] [address] [id number] [place] [address] August, [facility] [place] [facility] [address] [id number] [place] [address] August, [facility] [place] [facility] [address] [id number] [place] [address] August, [facility] [place] [facility] [address] [id number] [place] [address] Jul, [facility] [place] [facility] [address] [id number] [place] [address] Jul, [facility] [place] [facility] [address] [id number] [place] [address] Jun, [facility] [place] [facility] [address] [id number] [place] [address] Jun, [facility] [place] [facility] [address] [id number] [place] [address] May, [facility] [place] [facility] [address] [id number] [place] [address] May, [facility] [place] [facility] [address] [id number] [place] [address] May, [facility] [place] [facility] [address] [id number] [place] [address] May, [facility] [place] [facility] [address] [id number] [place] [address] May, [facility] [place] [facility] [address] [id number] [place] [address] May, [facility] [place] [facility] [address] [id number] [place] [address] May, [facility] [place] [facility] [address] [id number] [place] [address] Apr, [facility] [address] [id number] [place] [address] Apr, [facility] [address] [id number] [place] [address] Apr, [facility] [address] [id number] [place] [address] Apr, [facility] [address] [id number] [place] [address] Apr, [facility] [address] [id number] [place] [address] Apr, [facility] [address] [id number] [place] [address] Apr, [facility] [address] [id number] [place] [address] Apr, [facility] [address] [id number] [place] [address] Apr, [facility] [address] [id number] [place] [address] Apr, [facility] [address] [id number] [place] [address] Mar, [facility] [address] [id number] [place] [address] Mar, [facility] [address] [id number] [place] [address] Mar, [facility] [address] [id number] [place] [address] Mar, [facility] [address] [id number] [place] [address] Feb, [facility] [address] [id number] [place] [address] Feb, [facility] [place] [facility] [address] [id number] [place] [address] Feb, [facility] [place] [facility] [address] [id number] [place] [address] Feb, [facility] [place] [facility] [address] [id number] [place] [address] Feb, [facility] [place] [facility] [address] [id number] [place] [address] Feb, [facility] [place] [facility] [address] [id number] [place] [address] Jan, [facility] [place] [facility] [address] [id number] [place] [address] Jan, [facility] [place] [facility] [address] [id number] [place] [address] Dec, [facility] [place] [facility] [address] [id number] [address] Dec, [facility] [place] [facility] [address] [id number] [place] [address] Nov, [facility] [place] [facility] [address] [id number] [address] Nov, [facility] [place] [facility] [address] [id number] [address] Oct, [facility] [place] [facility] [address] [id number] [address] Sep, [facility] [place] [facility] [address] [id number] [place] [address] August, [facility] [place] [facility] [address] [id number] [address] 30 Jul, 2012 [facility] [place] [facility] [address] [id number], [place] [address] Jul, [facility] [place] [facility] [address] [id number] [address] Jul, [facility] [address] [id number] [place] [address] Jul, [facility] [place] [facility] [address] [facility] [id number] [place] [address] Jul, [facility] [address] [facility] [id number] [place] [address] Jun, [facility] [place] [facility] [address] [id number] [place] [address] May, [facility] [id number] [place] [address], [place] [address] Apr, [facility] [place] [facility] [address] [facility] [id number] [place] [address] Mar, [facility] [address] [place] [address] Mar, [facility] [place] [facility] [address] [facility] [id number] [place] [address] Mar, [facility] [address] [id number] [address] Jan, [facility] [place] [facility] [address] [id number] [address] Jan, [facility] [place] [facility] [address] [id number] [address] Jan, [facility] [place] [facility] [address] [facility] [id number] [place] [address] Jan, [facility] [place] [facility] [address] [facility] [id number] [place] [address] Dec, [facility] [place] [facility] [address] [facility] [id number] [place] [address] Dec, [facility] [place] [facility] [address] [id number] [address] Nov, [facility] [place] [facility] [address] [id number] [place] [address] Nov, [facility] [place] [facility] [address] [id number] [place] [address] Nov, [facility] [place] [facility] [address] [id number] [place] [address] Nov, [facility] [place] [facility] [address] [id number] [place] [address] Nov, [facility] [place] [facility] [address] [id number] [place] [address] Oct, [facility] [place] [facility] [address] [id number] [place] [address] Oct, [facility] [place] [facility] [address] [id number] [place] [address] Oct, [facility] [place] [facility] [address] [id number] [place] [address] Sep, [facility] [place] [facility] [address] [id number] [place] [address] August, [facility] [place] [facility] [address] [id number] [place] [address] Jul, [facility] [place] [facility] [address] [id number] [place] [address] Jul, [facility] [place] [facility] [address] [id number] [place] [address] Jul, [facility] [place] [facility] [address] [id number] [place] [address] Jul, [facility] [place] [facility] [address] [id number] [place] [address] Jun, [facility] [place] [facility] [address] [id number] [place] [address] Jun, [facility] [place] [facility] [address] [id number] [place] [address] Jun, [facility] [place] [facility] [address] [id number] [place] [address] Jun, [facility] [place] [facility] [address] [id number] [place] [address] Jun, [facility] [place] [facility] [address] [id number] [place] [address] May, [facility] [place] [facility] [address] [id number] [place] [address] May, [facility] [place] [facility] [address] [id number] [place] [address] May, [facility] [place] [facility] [address] [id number] [place] [address] May, [facility] [place] [facility] [address] [id number] [place] [address] Apr, [facility] [place] [facility] [address] [id number] [place] [address] Mar, [facility] [place] [facility] [address] [id number] [place] [address] Mar, [facility] [place] [facility] [address] [id number] [place] [address] Jun, [facility] [place] [facility] [address] [id number] [address] Feb, [facility] [place] [facility] [address] [id number] [place] [address] Jan, [facility] [place] [facility] [address] [id number] [place] [address] Jan, [facility] [place] [facility] [address] [id number] [place] [address] Jan, [facility] [place] [facility] [address] [id number] [place] [address] Dec, [facility] [place] [facility] [address] [facility] [id number] [place] [address] May, [facility] [address] [facility] [id number] [place] [address] Feb, [facility] [address] [facility] [id number] [place] [address] Feb, [facility] [address] [facility] [id number] [address] Feb, IMMUNIZATIONS No Known Immunizations SOCIAL HISTORY Never Assessed REASON FOR VISIT Requests return call PLAN OF CARE VITAL SIGNS MEDICATIONS Unknown [...]
--- OUTSIDE RECORDS SUMMARY | 2018-11-21 22:01 | XMS REPORT ---
Author Author LOVELACETUSHAR Ryder Organization [facility] Address [address] [place] [address] Care Team Providers Care Jet Wiper Name Role Phone LOVELACETUSHAR Ryder Unavailable PROBLEMS Type Condition ICD9-CM Code [id number] Code Onset Dates Condition Status SNOMED Code Problem Generalized anxiety disorder F41.1 Active 10923005 Problem Hypercholesterolemia E78.00 Active 03244461 Problem Body mass index (BMI) of 32.0-32.9 in adult Z68.32 Active 429637897 Problem Chronic obstructive pulmonary disease, unspecified COPD type J44.9 Active 11503688 Problem Insomnia G47.00 Active 974472459 Problem Other depression F32.89 Active 749712351 Problem Facet arthropathy, lumbar M46.96 Active 895806478 Problem Lumbar spondylosis M47.816 Active 481772214 Problem Lumbago with sciatica, unspecified side M54.40 Active 87127410 Problem Other obesity due to excess calories E66.09 Active 527284660 Problem COPD exacerbation J44.1 Active 678768129 Problem Other chronic pain G89.29 Active 89951568 Problem Restless legs G25.81 Active 36760491 Problem Constipation due to outlet dysfunction K59.02 Active 70708514 Problem COPD (chronic obstructive pulmonary disease) J44.9 Active 64754555 Problem Depression F32.9 Active 73024128 Problem Anxiety F41.9 Active 99092474 Problem Gastroesophageal reflux disease with esophagitis K21.0 Active 478261836 Problem Essential hypertension I10 Active 46867413 Problem Severe episode of recurrent major depressive disorder, without psychotic features F33.2 Active 26620938 Problem Major depressive disorder, recurrent episode, moderate with anxious distress F33.1 Active 069969810 Problem Psychophysiological insomnia F51.04 Active 162542199 ALLERGIES No Information ENCOUNTERS Encounter Location Date Diagnosis [facility] [address] [facility] [id number], [place] [address] Nov, [place] [address] [place] [id number] [place] [address] Nov, COPD (chronic obstructive pulmonary disease) J44.9 ; Essential hypertension I10 ; Lumbar spondylosis M47.816 ; Generalized anxiety disorder F41.1 ; Rash and nonspecific skin eruption R21 ; Pain in joints of right hand M25.541 ; Pain in joints of left hand M25.542 and Hypercholesterolemia E78.00 [place] [address] [address] Nov, Rash and nonspecific skin eruption R21 and Non-intractable vomiting with nausea, unspecified vomiting type R11.2 [place] [address] [place] [id number] [place] [address] Oct, [place] [address] [address] Sep, Pain aggravated by standing R52 [place] [address] [place] [id number] [place] [address] Sep, Other depression F32.[address] [address] Sep, Chronic obstructive pulmonary disease, unspecified COPD type J44.9 ; Pain aggravated by standing R52 ; Other depression F32.89 ; Major depressive disorder, recurrent episode, moderate with anxious distress F33.1 ; Restless legs G25.81 ; Insomnia G47.00 ; Gastroesophageal reflux disease with esophagitis K21.0 ; Essential hypertension I10 ; Generalized anxiety disorder F41.1 and Hypercholesterolemia E78.00 [place] [address] [place] [id number] [place] [address] Jul, Fever, unspecified fever cause R50.9 and Cough R05 [place] [address] [address] [id number] [place] [address] Jul, [place] [address] [place] [address] [id number] [place] [address] Jul, Gastroesophageal reflux disease with esophagitis K21.0 [place] [address] [address] [id number] [place] [address] Jul, [place] [address] [address] [id number] [place] [address] Jun, COPD (chronic obstructive pulmonary disease) J44.9 ; Restless legs G25.81 ; Insomnia G47.00 ; Essential hypertension I10 ; Major depressive disorder, recurrent episode, moderate with anxious distress F33.1 ; Gastroesophageal reflux disease with esophagitis K21.0 ; Constipation due to outlet dysfunction K59.02 ; Hypercholesterolemia E78.00 ; Other chronic pain G89.29 and Generalized abdominal pain R10.84 [place] [address] [place] [id number] [place] [address] Jun, [place] [address] [address] Jun, Acute recurrent sinusitis, unspecified location J01.91 and COPD exacerbation J44.1 [place] [address] [address] [id number] [place] [address] Jun, Lumbago with sciatica, unspecified side M54.40 [place] [address] [address] [id number] [place] [address] May, [place] [id number] [place] [address] May, Severe episode of recurrent major depressive disorder, without psychotic features F33.2 [place] [address] [place] [address] [id number] [place] [address] Apr, COPD (chronic obstructive pulmonary disease) J44.9 [...] index (BMI) of 32.0-32.9 in adult Z68.32 [place] [address] [id number] [place] [address] Apr, Severe episode of recurrent major depressive disorder, without psychotic features F33.2 [place] [address] [address] [id number] [place] [address] Feb, Severe episode of recurrent major depressive disorder, without psychotic features F33.2 and Restless legs G25.81 [place] [address] [address] [id number] [place] [address] Feb, Severe episode of recurrent major depressive disorder, without psychotic features F33.2 ; Generalized anxiety disorder F41.1 and Psychophysiological insomnia F51.04 [place] [address] [address] [id number] [place] [address] Dec, Severe episode of recurrent major depressive disorder, without psychotic features F33.2 ; Generalized anxiety disorder F41.1 and Psychophysiological insomnia F51.04 [place] [address] [id number] [place] [address] Nov, Severe episode of recurrent major depressive disorder, without psychotic features F33.2 ; Generalized anxiety disorder F41.1 and Psychophysiological insomnia F51.04 [place] [address] [place] [address] Nov, [place] [address] [place] [id number] [place] [address] Nov, Depression F32.9 [place] [address] [address] [id number] [place] [address] Nov, Depression F32.9 ; Insomnia G47.00 and Anxiety F41.9 [place] [address] [address] [id number] [place] [address] August, COPD (chronic obstructive pulmonary disease) J44.9 ; Depression F32.9 ; Anxiety F41.9 ; Major depressive disorder, recurrent episode, moderate with anxious distress F33.1 ; Insomnia G47.00 ; Restless legs G25.81 ; Essential hypertension I10 and Pure hypercholesterolemia E78.00 [facility] [address] [place] [address] August, Acute intractable tension-type headache G44.201 [facility] [id number] [place] [address] Jul, Left wrist pain M25.532 and Strain of left wrist, initial encounter S66.912A [facility] [address] [place] [id number] [place] [address] 14 May, 2016 Gastroesophageal reflux disease with esophagitis K21.0 and Anxiety F41.9 [place] [address] [address] [id number] [place] [address] 13 May, 2016 Major depressive disorder, recurrent episode, moderate with anxious distress F33.1 ; COPD (chronic obstructive pulmonary disease) J44.9 ; Restless legs G25.81 ; Insomnia G47.00 ; Essential hypertension I10 ; Anxiety F41.9 ; Constipation due to outlet dysfunction K59.02 ; Torsion of intestine, bowel or colon K56.2 ; Hypercholesterolemia E78.00 and Gastroesophageal reflux disease with esophagitis K21.0 [place] [address] [place] [address] 07 Feb, 2016 [place] [address] [place] [address] [id number] [place] [address] 20 Dec, 2015 Essential hypertension I10 ; Depression F32.9 ; Anxiety F41.9 ; Constipation due to outlet dysfunction K59.02 ; Torsion of intestine, bowel or colon K56.2 ; COPD (chronic obstructive pulmonary disease) J44.9 ; Insomnia G47.00 ; Restless legs G25.81 and Gastroesophageal reflux disease with esophagitis K21.0 [place] [address] [address] [id number] [place] [address] 08 Dec, 2015 Essential hypertension I10 ; Major depressive disorder, recurrent episode, moderate with anxious distress F33.1 ; COPD (chronic obstructive pulmonary disease) J44.9 ; Restless legs G25.81 ; Insomnia G47.00 ; Constipation due to outlet dysfunction K59.02 and Gastroesophageal reflux disease without esophagitis K21.9 [place] [address] [address] [id number] [place] [address] 07 Dec, 2015 Major depressive disorder, recurrent episode, moderate with anxious distress F33.1 [place] [address] [address] Sep, [place] [address] [address] 23 Sep, 2015 [address]11.[address] [address] 15 Sep, 2015 Lower abdominal pain R10.30 ; COPD (chronic obstructive pulmonary disease) J44.9 ; Restless legs G25.81 ; Essential hypertension I10 ; Depression F32.9 ; Other chronic pain G89.29 ; Lumbago with sciatica, unspecified side M54.40 and Primary insomnia F51.01 [place] [address] [place] [id number] [place] [address] August, [address] [address] August, COPD (chronic obstructive pulmonary disease) J44.9 ; Insomnia G47.00 ; Depression F32.9 and Constipation due to outlet dysfunction K59.02 [place] [id number] [place] [address] August, [place] [address] [place] [id number] [place] [address] August, [address] [address] August, Nausea & vomiting R11.2 [place] [id number] [place] [address] Jun, [address] [address] Jun, Unspecified abdominal pain R10.9 ; Depression, major, recurrent, moderate 296.32 ; COPD (chronic obstructive pulmonary disease) J44.9 ; Restless legs G25.81 ; Insomnia G47.00 ; Intestinal abscess K63.0 ; HTN (hypertension) I10 and Hypercholesteremia E78.0 [place] [address] [address] Jun, Intestinal abscess K63.0 [place] [address] [address] May, [place] [address] [address] May, [place] [address] [address] May, Unspecified abdominal pain R10.[address] [address] May, Depression, major, recurrent, moderate 296.32 ; COPD (chronic obstructive pulmonary disease) J44.9 ; Restless legs G25.81 ; Insomnia G47.00 ; Depression F32.9 ; HTN (hypertension) I10 and Hypercholesterolemia E78.0 [place] [address] [place] [id number] [place] [address] Apr, [address] [address] Mar, Cellulitis L03.[address] [address] Feb, Recurrent major depression-severe F33.[address] [address] Feb, Hyperlipemia E78.5 and High blood pressure I10 [address] [address] Feb, COPD (chronic obstructive pulmonary disease) J44.9 ; Restless legs G25.81 ; Insomnia G47.00 ; Depression F32.9 and HTN (hypertension) I10 [facility] [address] [address] Jan, [facility] [address] [place] [address] [id number] [place] [address] Jan, Generalized anxiety disorder F41.1 and Recurrent major depression- severe F33.2 [facility] [address] [address] Jan, Bronchitis J40 [place] [address] [address] Jan, Shoulder pain, right M25.511 and Low back pain M54.5 [place] [address] [address] Jan, [facility] [address] [address] Oct, [facility] [address] [address] Oct, Generalized anxiety disorder 300.02 and Depression, major, severe recurrence 296.33 [facility] [address] [place] [id number] [place] [address] Oct, [facility] [address] [place] [id number] [place] [address] Oct, Depression, major, recurrent, moderate 296.32 [facility] [address] [place] [id number] [place] [address] August, [facility] [address] [address] Jul, [facility] [address] [place] [id number] [place] [address] Jul, [facility] [address] [address] Jun, [facility] [place] [facility] [address] [id number] [place] [address] Jun, [facility] [place] [facility] [address] [id number] [place] [address] May, 2014 [facility] [place] [facility] [address] [facility] [id number] [place] [address] May, 2014 [facility] [place] [facility] [address] [id number] [place] [address] May, 2014 [facility] [place] [facility] [address] [id number] [place] [address] May, 2014 [facility] [place] [facility] [address] [facility] [id number] [place] [address] May, 2014 [facility] [place] [facility] [address] [facility] [id number] [place] [address] May, 2014 [facility] [place] [facility] [address] [facility] [id number] [place] [address] May, 2014 [facility] [place] [facility] [address] [facility] [id number] [place] [address] May, 2014 [facility] [place] [facility] [address] [facility] [id number] [place] [address] May, 2014 [facility] [place] [facility] [address] [facility] [id number] [place] [address] May, 2014 [facility] [place] [facility] [address] [facility] [id number] [place] [address] May, 2014 [facility] [place] [facility] [address] [facility] [id number] [place] [address] May, 2014 [facility] [place] [facility] [address] [facility] [id number] [place] [address] Apr, [facility] [place] [facility] [address] [facility] [id number] [place] [address] Apr, [facility] [place] [facility] [address] [id number] [place] [address] Apr, [facility] [place] [facility] [address] [id number] [place] [address] Apr, [facility] [place] [facility] [address] [id number] [place] [address] Apr, [facility] [place] [facility] [address] [id number] [place] [address] Apr, [facility] [place] [facility] [address] [id number] [place] [address] Apr, [facility] [place] [facility] [address] [id number] [place] [address] Apr, [facility] [place] [facility] [address] [id number] [place] [address] Apr, [facility] [place] [facility] [address] [id number] [place] [address] Apr, [facility] [place] [facility] [address] [id number] [place] [address] Mar, [facility] [place] [facility] [address] [id number] [place] [address] Mar, [facility] [place] [facility] [address] [id number] [place] [address] Mar, [facility] [place] [facility] [address] [id number] [place] [address] Mar, [facility] [place] [facility] [address] [id number] [place] [address] Mar, [facility] [place] [facility] [address] [id number] [place] [address] Feb, [facility] [place] [facility] [address] [id number] [place] [address] Feb, [facility] [place] [facility] [address] [id number] [place] [address] Dec, [facility] [place] [facility] [address] [id number] [place] [address] Dec, [facility] [place] [facility] [address] [id number] [place] [address] Nov, [facility] [place] [facility] [address] [id number] [place] [address] Nov, [facility] [place] [facility] [address] [id number] [place] [address] Nov, [facility] [place] [facility] [address] [id number] [place] [address] Nov, [facility] [place] [facility] [address] [id number] [place] [address] Oct, [facility] [place] [facility] [address] [id number] [place] [address] Oct, [facility] [place] [facility] [address] [id number] [place] [address] Sep, [facility] [place] [facility] [address] [id number] [place] [address] Sep, [facility] [place] [facility] [address] [id number] [place] [address] August, [facility] [place] [facility] [address] [id number] [place] [address] August, [facility] [place] [facility] [address] [id number] [place] [address] August, [facility] [place] [facility] [address] [id number] [place] [address] August, [facility] [place] [facility] [address] [id number] [place] [address] Jul, [facility] [place] [facility] [address] [id number] [place] [address] Jul, [facility] [place] [facility] [address] [id number] [place] [address] Jun, [facility] [place] [facility] [address] [id number] [place] [address] Jun, [facility] [place] [facility] [address] [id number] [place] [address] May, [facility] [place] [facility] [address] [id number] [place] [address] May, [facility] [place] [facility] [address] [id number] [place] [address] May, [facility] [place] [facility] [address] [id number] [place] [address] May, [facility] [place] [facility] [address] [id number] [place] [address] May, [facility] [place] [facility] [address] [id number] [place] [address] May, [facility] [place] [facility] [address] [id number] [place] [address] May, [facility] [place] [facility] [address] [id number] [place] [address] Apr, [facility] [place] [facility] [address] [id number] [place] [address] Apr, [facility] [place] [facility] [address] [id number] [place] [address] Apr, [facility] [place] [facility] [address] [id number] [place] [address] Apr, [facility] [place] [facility] [address] [id number] [place] [address] Apr, [facility] [place] [facility] [address] [id number] [place] [address] Apr, [facility] [place] [facility] [address] [id number] [address] Apr, [facility] [place] [facility] [address] [id number] [place] [address] Apr, [facility] [place] [facility] [address] [id number] [place] [address] Apr, [facility] [place] [facility] [address] [id number] [place] [address] Apr, [facility] [place] [facility] [address] [id number] [place] [address] Mar, [facility] [place] [facility] [address] [id number] [place] [address] Mar, [facility] [place] [facility] [address] [id number] [place] [address] Mar, [facility] [place] [facility] [address] [id number] [place] [address] Mar, [facility] [place] [facility] [address] [id number] [place] [address] Feb, [facility] [place] [facility] [address] [id number] [place] [address] Feb, [facility] [place] [facility] [address] [id number] [place] [address] Feb, [facility] [place] [facility] [address] [id number], [place] [address] Feb, [facility] [place] [facility] [address] [id number], [place] [address] Feb, [facility] [place] [facility] [address] [id number] [place] [address] Feb, [facility] [place] [facility] [address] [id number], [place] [address] Jan, [facility] [place] [facility] [address] [id number] [place] [address] 10 Jan, 2013 [facility] [place] [facility] [address] [id number] [place] [address] 05 Dec, 2012 [facility] [address] [id number] [place] [address] Dec, [facility] [address] [id number] [place] [address] Nov, [facility] [address] [id number] [place] [address] Nov, [facility] [address] [id number] [place] [address] Oct, [facility] [address] [id number] [place] [address] Sep, [facility] [address] [id number] [place] [address] August, [facility] [address] [id number] [place] [address] Jul, [facility] [address] [id number] [place] [address] Jul, [facility] [address] [id number] [place] [address] Jul, [facility] [address] [id number] [place] [address] Jul, [facility] [address] [id number] [place] [address] Jul, [facility] [address] [id number] [place] [address] Jun, [facility] [address] [id number] [place] [address] May, [facility] [address] [id number] [place] [address] Apr, [facility] [address] [id number] [place] [address] Mar, [facility] [place] [facility] [address] [id number] [place] [address] Mar, [facility] [place] [facility] [address] [id number] [place] [address] Mar, [facility] [place] [facility] [address] [id number] [place] [address] Jan, [facility] [place] [facility] [address] [id number] [place] [address] Jan, [facility] [place] [facility] [address] [id number] [place] [address] Jan, [facility] [place] [facility] [address] [id number] [place] [address] Jan, [facility] [place] [facility] [address] [id number] [place] [address] Dec, [facility] [place] [facility] [address] [id number] [place] [address] Dec, [facility] [place] [facility] [address] [id number] [place] [address] Nov, [facility] [place] [facility] [address] [id number] [place] [address] Nov, [facility] [place] [facility] [address] [id number] [place] [address] Nov, [facility] [place] [facility] [address] [id number], [place] [address] Nov, [facility] [place] [facility] [address] [id number] [place] [address] Nov, [facility] [place] [facility] [address] [id number], [place] [address] Oct, [facility] [place] [facility] [address] [id number] [place] [address] Oct, [facility] [place] [facility] [address] [id number] [place] [address] Oct, [facility] [place] [facility] [address] [id number] [place] [address] Sep, [facility] [place] [facility] [address] [id number] [place] [address] August, [facility] [place] [facility] [address] [id number] [place] [address] Jul, [facility] [place] [facility] [address] [id number] [place] [address] Jul, [facility] [place] [facility] [address] [id number] [place] [address] Jul, [facility] [place] [facility] [address] [id number] [place] [address] Jul, [facility] [place] [facility] [address] [id number] [place] [address] Jun, [facility] [place] [facility] [address] [id number] [place] [address] Jun, [facility] [place] [facility] [address] [id number] [place] [address] Jun, [facility] [place] [facility] [address] [facility] [id number] [place] [address] Jun, [facility] [place] [facility] [address] [id number] [place] [address] Jun, [facility] [place] [facility] [address] [id number] [place] [address] May, [facility] [place] [facility] [address] [id number] [place] [address] May, [facility] [place] [facility] [address] [address] [id number] [place] [address] May, [facility] [place] [facility] [address] [id number] [place] [address] May, [facility] [id number] [address] Apr, [facility] [id number], [place] [address] Mar, [facility] [id number] [place] [address] Mar, [facility] [id number], [place] [address] Jun, [facility] [address] [facility] [id number] [address] Feb, [facility] [id number] [address] Jan, [facility] [id number], [place] [address] Jan, [facility] [id number], [place] [address] Jan, [facility] [id number], [place] [address] Dec, [facility] [id number], [place] [address] May, [facility] [id number], [place] [address] Feb, [facility] [id number] [address] Feb, [facility] [id number], [place] [address] Feb, IMMUNIZATIONS No Known Immunizations SOCIAL HISTORY Never Assessed REASON FOR VISIT Rx change PLAN OF CARE VITAL SIGNS MEDICATIONS Medication Instructions Dosage Frequency Start Date End Date Duration Status Cymbalta 60 MG Orally twice a day [...]
--- OUTSIDE RECORDS SUMMARY | 2018-11-21 22:01 | XMS REPORT ---
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 Name Role Phone LOVELACETUSHAR Ryder Unavailable PROBLEMS Type Condition ICD9-CM Code [id number] Code Onset Dates Condition Status SNOMED Code Problem Generalized anxiety disorder F41.1 Active 58110218 Problem Hypercholesterolemia E78.00 Active 23987321 Problem Body mass index (BMI) of 32.0-32.9 in adult Z68.32 Active 964696265 Problem Chronic obstructive pulmonary disease, unspecified COPD type J44.9 Active 64457547 Problem Insomnia G47.00 Active 710914114 Problem Other depression F32.89 Active 564985517 Problem Facet arthropathy, lumbar M46.96 Active 804273719 Problem Lumbar spondylosis M47.816 Active 409834381 Problem Lumbago with sciatica, unspecified side M54.40 Active 04512403 Problem Other obesity due to excess calories E66.09 Active 734317804 Problem COPD exacerbation J44.1 Active 527010285 Problem Other chronic pain G89.29 Active 74566498 Problem Restless legs G25.81 Active 73833248 Problem Constipation due to outlet dysfunction K59.02 Active 52809885 Problem COPD (chronic obstructive pulmonary disease) J44.9 Active 99083870 Problem Depression F32.9 Active 63929203 Problem Anxiety F41.9 Active 21094719 Problem Gastroesophageal reflux disease with esophagitis K21.0 Active 381643349 Problem Essential hypertension I10 Active 83977012 Problem Severe episode of recurrent major depressive disorder, without psychotic features F33.2 Active 07609129 Problem Major depressive disorder, recurrent episode, moderate with anxious distress F33.1 Active 720430995 Problem Psychophysiological insomnia F51.04 Active 142002806 ALLERGIES No Information ENCOUNTERS Encounter Location Date Diagnosis [facility] [address] [facility] [place] [facility] [id number] [address] Nov, [place] [id number] [place] [address] Nov, COPD (chronic obstructive pulmonary disease) J44.9 ; Essential hypertension I10 ; Lumbar spondylosis M47.816 ; Generalized anxiety disorder F41.1 ; Rash and nonspecific skin eruption R21 ; Pain in joints of right hand M25.541 ; Pain in joints of left hand M25.542 and Hypercholesterolemia E78.00 [place] [address] [address] Nov, Rash and nonspecific skin eruption R21 and Non-intractable vomiting with nausea, unspecified vomiting type R11.2 [place] [address] [place] [id number] [address] Oct, [place] [address] [address] Sep, Pain aggravated by standing R52 [place] [id number] [place] [address] Sep, Other depression F32.[address] [address] Sep, Chronic obstructive pulmonary disease, unspecified COPD type J44.9 ; Pain aggravated by standing R52 ; Other depression F32.89 ; Major depressive disorder, recurrent episode, moderate with anxious distress F33.1 ; Restless legs G25.81 ; Insomnia G47.00 ; Gastroesophageal reflux disease with esophagitis K21.0 ; Essential hypertension I10 ; Generalized anxiety disorder F41.1 and Hypercholesterolemia E78.00 [place] [id number] [place] [address] Jul, Fever, unspecified fever cause R50.9 and Cough R05 [place] [id number] [place] [address] Jul, [place] [id number] [place] [address] Jul, Gastroesophageal reflux disease with esophagitis K21.0 [place] [id number] [place] [address] Jul, [place] [id number] [place] [address] Jun, COPD (chronic obstructive pulmonary disease) J44.9 ; Restless legs G25.81 ; Insomnia G47.00 ; Essential hypertension I10 ; Major depressive disorder, recurrent episode, moderate with anxious distress F33.1 ; Gastroesophageal reflux disease with esophagitis K21.0 ; Constipation due to outlet dysfunction K59.02 ; Hypercholesterolemia E78.00 ; Other chronic pain G89.29 and Generalized abdominal pain R10.84 [place] [id number] [place] [address] Jun, [place] [address] [address] Jun, Acute recurrent sinusitis, unspecified location J01.91 and COPD exacerbation J44.1 [place] [id number] [place] [address] Jun, Lumbago with sciatica, unspecified side M54.40 [place] [id number] [place] [address] May, [place] [id number] [place] [address] May, Severe episode of recurrent major depressive disorder, without psychotic features F33.2 [place] [id number] [place] [address] Apr, COPD (chronic obstructive pulmonary disease) J44.9 [...] index (BMI) of 32.0-32.9 in adult Z68.32 [place] [id number] [place] [address] Apr, Severe episode of recurrent major depressive disorder, without psychotic features F33.2 [place] [id number] [place] [address] Feb, Severe episode of recurrent major depressive disorder, without psychotic features F33.2 and Restless legs G25.81 [place] [id number] [place] [address] Feb, Severe episode of recurrent major depressive disorder, without psychotic features F33.2 ; Generalized anxiety disorder F41.1 and Psychophysiological insomnia F51.04 [place] [id number] [place] [address] Dec, Severe episode of recurrent major depressive disorder, without psychotic features F33.2 ; Generalized anxiety disorder F41.1 and Psychophysiological insomnia F51.04 [place] [id number] [place] [address] Nov, Severe episode of recurrent major depressive disorder, without psychotic features F33.2 ; Generalized anxiety disorder F41.1 and Psychophysiological insomnia F51.04 [place] [address] [place] [address] Nov, [place] [address] [id number] [place] [address] Nov, Depression F32.9 [place] [id number] [place] [address] Nov, Depression F32.9 ; Insomnia G47.00 and Anxiety F41.9 [place] [id number] [place] [address] August, COPD (chronic obstructive pulmonary disease) J44.9 ; Depression F32.9 ; Anxiety F41.9 ; Major depressive disorder, recurrent episode, moderate with anxious distress F33.1 ; Insomnia G47.00 ; Restless legs G25.81 ; Essential hypertension I10 and Pure hypercholesterolemia E78.00 [facility] [address] [place] [address] August, Acute intractable tension-type headache G44.201 [facility] [id number] [place] [address] Jul, Left wrist pain M25.532 and Strain of left wrist, initial encounter S66.912A [facility] [address] [id number] [place] [address] 14 May, 2016 Gastroesophageal reflux disease with esophagitis K21.0 and Anxiety F41.9 [place] [id number] [place] [address] 13 May, 2016 Major depressive disorder, recurrent episode, moderate with anxious distress F33.1 ; COPD (chronic obstructive pulmonary disease) J44.9 ; Restless legs G25.81 ; Insomnia G47.00 ; Essential hypertension I10 ; Anxiety F41.9 ; Constipation due to outlet dysfunction K59.02 ; Torsion of intestine, bowel or colon K56.2 ; Hypercholesterolemia E78.00 and Gastroesophageal reflux disease with esophagitis K21.0 [place] [address] [place] [address] 07 Feb, 2016 [place] [address] [id number] [place] [address] 20 Dec, 2015 Essential hypertension I10 ; Depression F32.9 ; Anxiety F41.9 ; Constipation due to outlet dysfunction K59.02 ; Torsion of intestine, bowel or colon K56.2 ; COPD (chronic obstructive pulmonary disease) J44.9 ; Insomnia G47.00 ; Restless legs G25.81 and Gastroesophageal reflux disease with esophagitis K21.0 [place] [address] [id number] [place] [address] 08 Dec, 2015 Essential hypertension I10 ; Major depressive disorder, recurrent episode, moderate with anxious distress F33.1 ; COPD (chronic obstructive pulmonary disease) J44.9 ; Restless legs G25.81 ; Insomnia G47.00 ; Constipation due to outlet dysfunction K59.02 and Gastroesophageal reflux disease without esophagitis K21.9 [place] [address] [id number] [place] [address] 07 Dec, 2015 Major depressive disorder, recurrent episode, moderate with anxious distress F33.1 [place] [address] [address] Sep, [place] [address] [address] 23 Sep, 2015 Nausea R11.[address] [address] 15 Sep, 2015 Lower abdominal pain R10.30 ; COPD (chronic obstructive pulmonary disease) J44.9 ; Restless legs G25.81 ; Essential hypertension I10 ; Depression F32.9 ; Other chronic pain G89.29 ; Lumbago with sciatica, unspecified side M54.40 and Primary insomnia F51.01 [place] [address] [id number] [place] [address] August, [address] [address] August, COPD (chronic obstructive pulmonary disease) J44.9 ; Insomnia G47.00 ; Depression F32.9 and Constipation due to outlet dysfunction K59.02 [place] [id number] [place] [address] August, [place] [id number] [place] [address] August, [address] [address] August, Nausea & vomiting R11.2 [place] [id number] [place] [address] Jun, [address] [address] Jun, Unspecified abdominal pain R10.9 ; Depression, major, recurrent, moderate 296.32 ; COPD (chronic obstructive pulmonary disease) J44.9 ; Restless legs G25.81 ; Insomnia G47.00 ; Intestinal abscess K63.0 ; HTN (hypertension) I10 and Hypercholesteremia E78.0 [place] [address] [address] Jun, Intestinal abscess K63.0 [place] [address] [address] May, [place] [address] [address] May, [place] [address] [address] May, Unspecified abdominal pain R10.[address] [address] May, Depression, major, recurrent, moderate 296.32 ; COPD (chronic obstructive pulmonary disease) J44.9 ; Restless legs G25.81 ; Insomnia G47.00 ; Depression F32.9 ; HTN (hypertension) I10 and Hypercholesterolemia E78.0 [place] [address] [address] [id number] [place] [address] Apr, [address] [address] Mar, Cellulitis L03.[address] [address] Feb, Recurrent major depression-severe F33.[address] [address] Feb, Hyperlipemia E78.5 and High blood pressure I10 [address] [address] Feb, COPD (chronic obstructive pulmonary disease) J44.9 ; Restless legs G25.81 ; Insomnia G47.00 ; Depression F32.9 and HTN (hypertension) I10 [facility] [address] [address] Jan, [facility] [address] [id number] [place] [address] Jan, Generalized anxiety disorder F41.1 and Recurrent major depression- severe F33.2 [facility] [address] [address] Jan, Bronchitis J40 [place] [address] [address] Jan, Shoulder pain, right M25.511 and Low back pain M54.5 [place] [address] [address] Jan, [facility] [address] [address] Oct, [facility] [address] [address] Oct, Generalized anxiety disorder 300.02 and Depression, major, severe recurrence 296.33 [facility] [address] [place] [address] [id number] [place] [address] Oct, [facility] [address] [id number] [place] [address] Oct, Depression, major, recurrent, moderate 296.32 [facility] [address] [place] [id number] [place] [address] August, [facility] [address] [address] Jul, [facility] [address] [address] [id number] [place] [address] Jul, [facility] [address] [address] Jun, [facility] [place] [facility] [address] [id number] [place] [address] Jun, [facility] [place] [facility] [address] [id number] [place] [address] May, 2014 [facility] [place] [facility] [address] [facility] [place] [facility] [place] [id number] [place] [address] May, 2014 [facility] [place] [facility] [address] [id number] [place] [address] May, 2014 [facility] [place] [facility] [address] [id number] [place] [address] May, 2014 [facility] [place] [facility] [address] [facility] [place] [id number] [place] [address] May, 2014 [facility] [place] [facility] [address] [facility] [place] [id number] [place] [address] May, 2014 [facility] [place] [facility] [address] [facility] [facility] [place] [id number] [place] [address] May, 2014 [facility] [place] [facility] [address] [facility] [facility] [place] [id number] [place] [address] May, 2014 [facility] [place] [facility] [address] [facility] [facility] [place] [id number] [place] [address] May, 2014 [facility] [place] [facility] [address] [facility] [facility] [place] [id number] [place] [address] May, 2014 [facility] [place] [facility] [address] [facility] [facility] [place] [id number] [place] [address] May, 2014 [facility] [place] [facility] [address] [facility] [facility] [place] [id number] [place] [address] May, 2014 [facility] [place] [facility] [address] [facility] [facility] [place] [id number] [place] [address] Apr, [facility] [place] [facility] [address] [facility] [place] [id number] [place] [address] Apr, [facility] [place] [facility] [address] [id number] [place] [address] Apr, [facility] [place] [facility] [address] [id number] [place] [address] Apr, [facility] [place] [facility] [address] [id number] [place] [address] Apr, [facility] [place] [facility] [address] [id number] [place] [address] Apr, [facility] [place] [facility] [address] [id number] [place] [address] Apr, [facility] [place] [facility] [address] [id number] [place] [address] Apr, [facility] [place] [facility] [address] [id number] [place] [address] Apr, [facility] [place] [facility] [address] [id number] [place] [address] Apr, [facility] [place] [facility] [address] [id number] [place] [address] Mar, [facility] [place] [facility] [address] [id number] [place] [address] Mar, [facility] [place] [facility] [address] [id number] [place] [address] Mar, [facility] [place] [facility] [address] [id number] [place] [address] Mar, [facility] [place] [facility] [address] [id number] [place] [address] Mar, [facility] [place] [facility] [address] [id number] [place] [address] Feb, [facility] [place] [facility] [address] [id number] [place] [address] Feb, [facility] [place] [facility] [address] [id number] [place] [address] Dec, [facility] [place] [facility] [address] [id number] [place] [address] Dec, [facility] [place] [facility] [address] [id number] [place] [address] Nov, [facility] [place] [facility] [address] [id number] [place] [address] Nov, [facility] [place] [facility] [address] [id number] [place] [address] Nov, [facility] [place] [facility] [address] [id number] [place] [address] Nov, [facility] [place] [facility] [address] [id number] [place] [address] Oct, [facility] [place] [facility] [address] [id number] [place] [address] Oct, [facility] [place] [facility] [address] [id number] [place] [address] Sep, [facility] [place] [facility] [address] [id number] [place] [address] Sep, [facility] [place] [facility] [address] [id number] [place] [address] August, [facility] [place] [facility] [address] [id number] [place] [address] August, [facility] [place] [facility] [address] [id number] [place] [address] August, [facility] [place] [facility] [address] [id number] [place] [address] August, [facility] [place] [facility] [address] [id number] [place] [address] Jul, [facility] [place] [facility] [address] [id number] [place] [address] Jul, [facility] [place] [facility] [address] [id number] [place] [address] Jun, [facility] [place] [facility] [address] [id number] [place] [address] Jun, [facility] [place] [facility] [address] [id number] [place] [address] May, [facility] [place] [facility] [address] [id number] [place] [address] May, [facility] [place] [facility] [address] [id number] [place] [address] May, [facility] [place] [facility] [address] [id number] [place] [address] May, [facility] [place] [facility] [address] [id number] [place] [address] May, [facility] [place] [facility] [address] [id number] [place] [address] May, [facility] [place] [facility] [address] [id number] [place] [address] May, [facility] [place] [facility] [address] [id number] [place] [address] Apr, [facility] [place] [facility] [address] [id number] [place] [address] Apr, [facility] [place] [facility] [address] [id number] [place] [address] Apr, [facility] [place] [facility] [address] [id number] [place] [address] Apr, [facility] [place] [facility] [address] [id number] [place] [address] Apr, [facility] [place] [facility] [address] [id number] [place] [address] Apr, [facility] [place] [facility] [address] [id number] [address] Apr, [facility] [place] [facility] [address] [id number] [place] [address] Apr, [facility] [place] [facility] [address] [id number] [place] [address] Apr, [facility] [place] [facility] [address] [id number] [place] [address] Apr, [facility] [place] [facility] [address] [id number] [place] [address] Mar, [facility] [place] [facility] [address] [id number] [place] [address] Mar, [facility] [place] [facility] [address] [id number] [place] [address] Mar, [facility] [place] [facility] [address] [id number] [place] [address] Mar, [facility] [place] [facility] [address] [id number] [place] [address] Feb, [facility] [place] [facility] [address] [id number] [place] [address] Feb, [facility] [place] [facility] [address] [id number] [place] [address] Feb, [facility] [place] [facility] [address] [id number] [address] Feb, [facility] [place] [facility] [address] [id number] [address] Feb, [facility] [place] [facility] [address] [id number] [place] [address] Feb, [facility] [place] [facility] [address] [id number] [place] [address] Jan, [facility] [place] [facility] [address] [id number] [place] [address] 10 Jan, 2013 [facility] [place] [facility] [address] [id number] [place] [address] 05 Dec, 2012 [facility] [address] [id number] [place] [address] Dec, [facility] [address] [id number] [place] [address] Nov, [facility] [address] [id number] [place] [address] Nov, [facility] [address] [id number] [place] [address] Oct, [facility] [address] [id number] [place] [address] Sep, [facility] [address] [id number] [place] [address] August, [facility] [address] [id number] [place] [address] Jul, [facility] [address] [id number] [place] [address] Jul, [facility] [address] [id number] [place] [address] Jul, [facility] [address] [id number] [place] [address] Jul, [facility] [address] [id number] [place] [address] Jul, [facility] [address] [id number] [place] [address] Jun, [facility] [address] [id number] [place] [address] May, [facility] [address] [id number] [place] [address] Apr, [facility] [address] [id number] [place] [address] Mar, [facility] [place] [facility] [address] [id number] [place] [address] Mar, [facility] [place] [facility] [address] [id number] [place] [address] Mar, [facility] [place] [facility] [address] [id number] [place] [address] Jan, [facility] [place] [facility] [address] [id number] [place] [address] Jan, [facility] [place] [facility] [address] [id number] [place] [address] Jan, [facility] [place] [facility] [address] [id number] [place] [address] Jan, [facility] [place] [facility] [address] [id number] [place] [address] Dec, [facility] [place] [facility] [address] [id number] [place] [address] Dec, [facility] [place] [facility] [address] [id number] [place] [address] Nov, [facility] [place] [facility] [address] [id number] [place] [address] Nov, [facility] [place] [facility] [address] [id number] [place] [address] Nov, [facility] [place] [facility] [address] [id number] [address] Nov, [facility] [place] [facility] [address] [id number] [place] [address] Nov, [facility] [place] [facility] [address] [id number] [address] Oct, [facility] [place] [facility] [address] [id number] [place] [address] Oct, [facility] [place] [facility] [address] [id number] [place] [address] Oct, [facility] [place] [facility] [address] [id number] [place] [address] Sep, [facility] [place] [facility] [address] [id number] [place] [address] August, [facility] [place] [facility] [address] [id number] [place] [address] Jul, [facility] [place] [facility] [address] [id number] [place] [address] Jul, [facility] [place] [facility] [address] [id number] [place] [address] Jul, [facility] [facility] [address] [id number] [place] [address] Jul, [facility] [place] [facility] [address] [id number] [place] [address] Jun, [facility] [place] [facility] [address] [id number] [place] [address] Jun, [facility] [place] [facility] [address] [id number] [place] [address] Jun, [facility] [place] [facility] [address] [facility] [place] [id number] [place] [address] Jun, [facility] [place] [facility] [address] [id number] [place] [address] Jun, [facility] [place] [facility] [address] [id number] [place] [address] May, [facility] [place] [facility] [address] [id number] [place] [address] May, [facility] [place] [facility] [address] [id number] [place] [address] May, [facility] [place] [facility] [address] [id number] [place] [address] May, [facility] [id number] [address] Apr, [facility] [id number] [address] Mar, [facility] [id number] [address] Mar, [facility] [id number] [address] Jun, [facility] [address] [id number] [address] Feb, [facility] [id number] [address] Jan, [facility] [id number] [address] Jan, [facility] [id number] [address] Jan, [facility] [id number] [address] Dec, [facility] [id number] [address] May, [facility] [address] [id number] [address] Feb, [facility] [id number] [address] Feb, [facility] [id number] [address] Feb, IMMUNIZATIONS No Known Immunizations SOCIAL HISTORY Never Assessed REASON FOR VISIT med clairification PLAN OF CARE VITAL SIGNS MEDICATIONS Medication Instructions Dosage Frequency Start Date End Date Duration Status PredniSONE 10 mg Orally Once a day 4 tablets for 4 days, 3 tablets for 4 days, 2 tablets for 4 days, one tablet for 4 days 24h Sep, Sep, 16 days Active RESULTS No Results PROCEDURES No [...]
--- OUTSIDE RECORDS SUMMARY | 2018-11-21 22:02 | XMS REPORT ---
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 Name Role Phone HIRAL Adhikari Unavailable PROBLEMS Type Condition ICD9-CM Code BXE99-TC Code Onset Dates Condition Status SNOMED Code Problem Generalized anxiety disorder F41.1 Active 39598057 Problem Hypercholesterolemia E78.00 Active 68113111 Problem Body mass index (BMI) of 32.0-32.9 in adult Z68.32 Active 930637521 Problem Chronic obstructive pulmonary disease, unspecified COPD type J44.9 Active 34501368 Problem Insomnia G47.00 Active 556297237 Problem Other depression F32.89 Active 861693306 Problem Facet arthropathy, lumbar M46.96 Active 061909565 Problem Lumbar spondylosis M47.816 Active 428634213 Problem Lumbago with sciatica, unspecified side M54.40 Active 13118258 Problem Other obesity due to excess calories E66.09 Active 519937608 Problem COPD exacerbation J44.1 Active 880652701 Problem Other chronic pain G89.29 Active 81470090 Problem Restless legs G25.81 Active 48188115 Problem Constipation due to outlet dysfunction K59.02 Active 14631461 Problem COPD (chronic obstructive pulmonary disease) J44.9 Active 71352722 Problem Depression F32.9 Active 38621906 Problem Anxiety F41.9 Active 71093427 Problem Gastroesophageal reflux disease with esophagitis K21.0 Active 481511758 Problem Essential hypertension I10 Active 45029356 Problem Severe episode of recurrent major depressive disorder, without psychotic features F33.2 Active 84633696 Problem Major depressive disorder, recurrent episode, moderate with anxious distress F33.1 Active 199177096 Problem Psychophysiological insomnia F51.04 Active 514722347 ALLERGIES No Known Allergies ENCOUNTERS Encounter Location Date Diagnosis [facility] [id number] [place] [address] Nov, [place] [id number] [place] [address] Nov, Rash and nonspecific skin eruption R21 and Non-intractable vomiting with nausea, unspecified vomiting type R11.2 [place] [id number] [place] [address] Oct, [place] [address] [address] Sep, Pain aggravated by standing R52 [place] [address] [address] Sep, Other depression F32.89 [place] [id number] [place] [address] Sep, Chronic obstructive pulmonary disease, unspecified COPD type J44.9 ; Pain aggravated by standing R52 ; Other depression F32.89 ; Major depressive disorder, recurrent episode, moderate with anxious distress F33.1 ; Restless legs G25.81 ; Insomnia G47.00 ; Gastroesophageal reflux disease with esophagitis K21.0 ; Essential hypertension I10 ; Generalized anxiety disorder F41.1 and Hypercholesterolemia E78.00 [place] [id number] [place] [address] Jul, Fever, unspecified fever cause R50.9 and Cough R05 [place] [id number] [place] [address] Jul, [place] [id number] [place] [address] Jul, Gastroesophageal reflux disease with esophagitis K21.0 [place] [id number] [place] [address] Jul, [place] [id number] [place] [address] Jun, COPD (chronic obstructive pulmonary disease) J44.9 ; Restless legs G25.81 ; Insomnia G47.00 ; Essential hypertension I10 ; Major depressive disorder, recurrent episode, moderate with anxious distress F33.1 ; Gastroesophageal reflux disease with esophagitis K21.0 ; Constipation due to outlet dysfunction K59.02 ; Hypercholesterolemia E78.00 ; Other chronic pain G89.29 and Generalized abdominal pain R10.[address] [address] Jun, [address] [address] Jun, Acute recurrent sinusitis, unspecified location J01.91 and COPD exacerbation J44.[address] [address] Jun, Lumbago with sciatica, unspecified side M54.[address] [address] May, [address] [address] May, Severe episode of recurrent major depressive disorder, without psychotic features F33.2 [address] [id number] [place] [address] Apr, COPD (chronic obstructive pulmonary disease) J44.9 [...] index (BMI) of 32.0-32.9 in adult Z68.[address] [address] Apr, Severe episode of recurrent major depressive disorder, without psychotic features F33.[address] [address] Feb, Severe episode of recurrent major depressive disorder, without psychotic features F33.2 and Restless legs G25.81 [place] [address] [address] Feb, Severe episode of recurrent major depressive disorder, without psychotic features F33.2 ; Generalized anxiety disorder F41.1 and Psychophysiological insomnia F51.04 [place] [address] [address] Dec, Severe episode of recurrent major depressive disorder, without psychotic features F33.2 ; Generalized anxiety disorder F41.1 and Psychophysiological insomnia F51.04 [place] [address] [address] Nov, Severe episode of recurrent major depressive disorder, without psychotic features F33.2 ; Generalized anxiety disorder F41.1 and Psychophysiological insomnia F51.04 [place] [address] [address] Nov, [place] [address] [address] Nov, Depression F32.9 [place] [address] [address] Nov, Depression F32.9 ; Insomnia G47.00 and Anxiety F41.9 [place] [address] [address] August, COPD (chronic obstructive pulmonary disease) J44.9 ; Depression F32.9 ; Anxiety F41.9 ; Major depressive disorder, recurrent episode, moderate with anxious distress F33.1 ; Insomnia G47.00 ; Restless legs G25.81 ; Essential hypertension I10 and Pure hypercholesterolemia E78.00 [place] [address] [address] August, Acute intractable tension-type headache G44.201 [facility] [address] [address] Jul, Left wrist pain M25.532 and Strain of left wrist, initial encounter S66.912A [place] [id number] [place] [address] 14 May, 2016 Gastroesophageal reflux disease with esophagitis K21.0 and Anxiety F41.9 [place] [id number] [place] [address] 13 May, 2016 Major depressive disorder, recurrent episode, moderate with anxious distress F33.1 ; COPD (chronic obstructive pulmonary disease) J44.9 ; Restless legs G25.81 ; Insomnia G47.00 ; Essential hypertension I10 ; Anxiety F41.9 ; Constipation due to outlet dysfunction K59.02 ; Torsion of intestine, bowel or colon K56.2 ; Hypercholesterolemia E78.00 and Gastroesophageal reflux disease with esophagitis K21.0 [place] [id number] [place] [address] Feb, [place] [address] [address] 20 Dec, 2015 Essential hypertension I10 ; Depression F32.9 ; Anxiety F41.9 ; Constipation due to outlet dysfunction K59.02 ; Torsion of intestine, bowel or colon K56.2 ; COPD (chronic obstructive pulmonary disease) J44.9 ; Insomnia G47.00 ; Restless legs G25.81 and Gastroesophageal reflux disease with esophagitis K21.0 [place] [id number] [place] [address] 08 Dec, 2015 Essential hypertension I10 ; Major depressive disorder, recurrent episode, moderate with anxious distress F33.1 ; COPD (chronic obstructive pulmonary disease) J44.9 ; Restless legs G25.81 ; Insomnia G47.00 ; Constipation due to outlet dysfunction K59.02 and Gastroesophageal reflux disease without esophagitis K21.9 [place] [id number] [place] [address] 07 Dec, 2015 Major depressive disorder, recurrent episode, moderate with anxious distress F33.1 [place] [address] [place] [address] Sep, [place] [address] [address] Sep, Nausea R11.0 [place] [address] [address] 15 Sep, 2015 Lower abdominal pain R10.30 ; COPD (chronic obstructive pulmonary disease) J44.9 ; Restless legs G25.81 ; Essential hypertension I10 ; Depression F32.9 ; Other chronic pain G89.29 ; Lumbago with sciatica, unspecified side M54.40 and Primary insomnia F51.01 [place] [address] [address] August, [place] [address] [address] August, COPD (chronic obstructive pulmonary disease) J44.9 ; Insomnia G47.00 ; Depression F32.9 and Constipation due to outlet dysfunction K59.02 [place] [address] [address] August, [place] [address] [address] August, [place] [address] [address] August, Nausea & vomiting R11.2 [place] [address] [address] Jun, [place] [address] [address] Jun, Unspecified abdominal pain R10.9 ; Depression, major, recurrent, moderate 296.32 ; COPD (chronic obstructive pulmonary disease) J44.9 ; Restless legs G25.81 ; Insomnia G47.00 ; Intestinal abscess K63.0 ; HTN (hypertension) I10 and Hypercholesteremia E78.0 [place] [address] [place] [address] Jun, Intestinal abscess K63.0 [place] [address] [address] May, [facility] [address] [address] May, [place] [address] [address] May, Unspecified abdominal pain R10.9 [place] [address] [address] May, Depression, major, recurrent, moderate 296.32 ; COPD (chronic obstructive pulmonary disease) J44.9 ; Restless legs G25.81 ; Insomnia G47.00 ; Depression F32.9 ; HTN (hypertension) I10 and Hypercholesterolemia E78.0 [place] [address] [address] Apr, [place] [address] [address] Mar, Cellulitis L03.90 [place] [address] [address] Feb, Recurrent major depression-severe F33.2 [place] [id number] [place] [address] Feb, Hyperlipemia E78.5 and High blood pressure I10 [place] [id number] [place] [address] Feb, COPD (chronic obstructive pulmonary disease) J44.9 ; Restless legs G25.81 ; Insomnia G47.00 ; Depression F32.9 and HTN (hypertension) I10 [place] [id number] [place] [address] Jan, [facility] [address] [address] Jan, Generalized anxiety disorder F41.1 and Recurrent major depression- severe F33.2 [facility] [id number] [place] [address] Jan, Bronchitis J40 [facility] [id number] [place] [address] Jan, Shoulder pain, right M25.511 and Low back pain M54.5 [facility] [id number] [place] [address] Jan, [facility] [id number] [place] [address] Oct, [facility] [id number] [place] [address] Oct, Generalized anxiety disorder 300.02 and Depression, major, severe recurrence 296.33 [facility] [id number] [place] [address] Oct, [facility] [id number] [place] [address] Oct, Depression, major, recurrent, moderate 296.32 [facility] [id number] [place] [address] August, [facility] [id number] [place] [address] Jul, [facility] [id number] [place] [address] Jul, [facility] [id number] [place] [address] Jun, [facility] [id number] [place] [address] Jun, [facility] [id number] [place] [address] May, [facility] [address] [place] [address] May, 2014 [facility] [place] [facility] [address] [id number] [place] [address] May, 2014 [facility] [place] [facility] [address] [id number] [place] [address] May, 2014 [facility] [place] [facility] [address] [id number] [place] [address] May, 2014 [facility] [place] [facility] [address] [id number] [place] [address] May, 2014 [facility] [place] [facility] [address] [id number] [place] [address] May, 2014 [facility] [place] [facility] [address] [facility] [id number] [place] [address] May, 2014 [facility] [place] [facility] [address] [id number] [place] [address] May, 2014 [facility] [place] [facility] [address] [id number] [place] [address] May, 2014 [facility] [place] [facility] [address] [facility] [id number] [place] [address] May, 2014 [facility] [place] [facility] [address] [facility] [id number] [place] [address] May, 2014 [facility] [place] [facility] [address] [id number], [place] [address] Apr, [facility] [place] [facility] [address] [id number] [place] [address] Apr, [facility] [place] [facility] [address] [id number] [place] [address] Apr, [facility] [place] [facility] [address] [id number] [place] [address] Apr, [facility] [place] [facility] [address] [facility] [id number] [place] [address] Apr, [facility] [place] [facility] [address] [id number] [place] [address] Apr, [facility] [place] [facility] [address] [id number] [place] [address] Apr, [facility] [place] [facility] [address] [id number] [place] [address] Apr, [facility] [place] [facility] [address] [id number] [place] [address] Apr, [facility] [place] [facility] [address] [id number] [place] [address] Apr, [facility] [place] [facility] [address] [id number] [place] [address] Mar, [facility] [place] [facility] [address] [id number] [place] [address] Mar, [facility] [place] [facility] [address] [id number] [place] [address] Mar, [facility] [place] [facility] [address] [id number] [place] [address] Mar, [facility] [place] [facility] [address] [id number] [place] [address] Mar, [facility] [place] [facility] [address] [id number] [place] [address] Feb, [facility] [place] [facility] [address] [id number], [place] [address] Feb, [facility] [place] [facility] [address] [id number] [place] [address] Dec, [facility] [place] [facility] [address] [id number] [place] [address] Dec, [facility] [place] [facility] [address] [id number] [place] [address] Nov, [facility] [place] [facility] [address] [id number] [place] [address] Nov, [facility] [address] [id number] [place] [address] Nov, [facility] [place] [facility] [address] [id number] [place] [address] Nov, [facility] [address] [id number] [place] [address] Oct, [facility] [place] [facility] [address] [id number] [place] [address] Oct, [facility] [address] [id number] [place] [address] Sep, [facility] [place] [facility] [address] [id number] [place] [address] Sep, [facility] [place] [facility] [address] [id number] [place] [address] August, [facility] [address] [id number] [place] [address] August, [facility] [place] [facility] [address] [id number] [place] [address] August, [facility] [address] [id number] [place] [address] August, [facility] [place] [facility] [address] [id number] [place] [address] Jul, [facility] [place] [facility] [address] [id number] [place] [address] Jul, [facility] [place] [facility] [address] [id number] [place] [address] Jun, [facility] [place] [facility] [address] [id number] [place] [address] Jun, [facility] [place] [facility] [address] [id number] [place] [address] May, [facility] [place] [facility] [address] [id number] [place] [address] May, [facility] [place] [facility] [address] [id number] [place] [address] May, [facility] [place] [facility] [address] [id number] [place] [address] May, [facility] [place] [facility] [address] [id number] [place] [address] May, [facility] [place] [facility] [address] [id number] [place] [address] May, [facility] [place] [facility] [address] [id number] [place] [address] May, [facility] [place] [facility] [address] [id number] [place] [address] Apr, [facility] [place] [facility] [address] [id number] [place] [address] Apr, [facility] [place] [facility] [address] [id number] [place] [address] Apr, [facility] [place] [facility] [address] [id number] [place] [address] Apr, [facility] [place] [facility] [address] [id number] [place] [address] Apr, [facility] [place] [facility] [address] [id number] [place] [address] Apr, [facility] [place] [facility] [address] [id number] [place] [address] Apr, [facility] [place] [facility] [address] [id number] [place] [address] Apr, [facility] [place] [facility] [address] [id number] [place] [address] Apr, [facility] [place] [facility] [address] [id number] [place] [address] Apr, [facility] [address] [id number] [place] [address] Mar, [facility] [address] [id number] [place] [address] Mar, [facility] [address] [id number] [place] [address] Mar, [facility] [address] [id number] [place] [address] Mar, [facility] [address] [id number] [place] [address] Feb, [facility] [address] [id number] [place] [address] Feb, [facility] [address] [id number] [place] [address] Feb, [facility] [address] [id number] [place] [address] Feb, [facility] [address] [id number] [place] [address] Feb, [facility] [address] [id number] [place] [address] Feb, [facility] [place] [facility] [address] [id number] [place] [address] Jan, [facility] [place] [facility] [address] [id number] [place] [address] Jan, [facility] [place] [facility] [address] [id number] [place] [address] 05 Dec, 2012 [facility] [place] [facility] [address] [id number] [place] [address] Dec, [facility] [place] [facility] [address] [id number] [place] [address] Nov, [facility] [address] [id number] [place] [address] Nov, [facility] [address] [id number] [place] [address] Oct, [facility] [address] [id number] [place] [address] Sep, [facility] [address] [id number] [place] [address] August, [facility] [address] [id number] [place] [address] Jul, [facility] [address] [id number] [place] [address] Jul, [facility] [address] [id number] [place] [address] Jul, [facility] [address] [id number] [place] [address] Jul, [facility] [address] [id number] [place] [address] Jul, [facility] [address] [id number] [place] [address] Jun, [facility] [address] [id number] [place] [address] May, [facility] [address] [id number], [place] [address] Apr, [facility] [place] [facility] [address] [id number] [place] [address] Mar, [facility] [place] [facility] [address] [id number] [place] [address] Mar, [facility] [place] [facility] [address] [id number] [place] [address] Mar, [facility] [address] [id number] [place] [address] Jan, [facility] [place] [facility] [address] [id number] [place] [address] Jan, [facility] [place] [facility] [address] [id number] [place] [address] Jan, [facility] [place] [facility] [address] [id number] [place] [address] Jan, [facility] [place] [facility] [address] [id number] [place] [address] Dec, [facility] [place] [facility] [address] [id number] [place] [address] Dec, [facility] [place] [facility] [address] [id number] [place] [address] Nov, [facility] [place] [facility] [address] [id number] [place] [address] Nov, [facility] [place] [facility] [address] [id number] [place] [address] Nov, [facility] [place] [facility] [address] [id number] [place] [address] Nov, [facility] [place] [facility] [address] [facility] [id number] [place] [address] Nov, [facility] [place] [facility] [address] [id number] [place] [address] Oct, [facility] [place] [facility] [address] [id number] [place] [address] Oct, [facility] [place] [facility] [address] [id number] [place] [address] Oct, [facility] [place] [facility] [address] [facility] [id number] [place] [address] Sep, [facility] [place] [facility] [address] [facility] [id number] [place] [address] August, [facility] [place] [facility] [address] [id number] [place] [address] 12 Jul, 2011 [facility] [place] [facility] [address] [id number] [place] [address] 12 Jul, 2011 [facility] [place] [facility] [address] [id number] [place] [address] Jul, [facility] [place] [facility] [address] [id number] [place] [address] 05 Jul, 2011 [facility] [place] [facility] [address] [id number] [place] [address] 29 Jun, 2011 [facility] [place] [facility] [address] [id number] [place] [address] 28 Jun, 2011 [facility] [place] [facility] [address] [id number] [place] [address] Jun, [facility] [place] [facility] [address] [id number] [place] [address] Jun, [facility] [place] [facility] [address] [id number] [place] [address] 15 Jun, 2011 [facility] [place] [facility] [address] [id number] [place] [address] 28 May, 2011 [facility] [place] [facility] [address] [id number] [place] [address] May, [facility] [place] [facility] [address] [id number] [place] [address] May, [facility] [place] [facility] [address] [id number] [place] [address] 24 May, 2011 [facility] [place] [facility] [address] [id number] [place] [address] Apr, [facility] [place] [facility] [address] [id number] [place] [address] Mar, [facility] [place] [facility] [address] [id number], [place] [address] Mar, [facility] [address] [id number] [address] Jun, [facility] [address] [id number] [address] Feb, [facility] [id number] [place] [address] Jan, [facility] [id number] [place] [id number] Jan, [facility] [id number] [place] [address] Jan, [facility] [id number] [place] [id number] Dec, [facility] [id number] [place] [id number] May, [facility] [id number] [place] [phone] Feb, [facility] [id number] [place] [address] Feb, [facility] [id number] [place] [address] Feb, IMMUNIZATIONS No Known Immunizations SOCIAL HISTORY Never Assessed REASON FOR VISIT Fever, body aches, chills, cough, congestion, loss of appetite since Thursday----- [email or web address] PLAN OF CARE Activity Details Follow Up prn Reason: VITAL SIGNS Height 62 in 2017-08-11 Weight 179 lbs 2017-08-11 Temperature 99.3 degrees Fahrenheit 2017-08-11 Heart Rate 120 bpm 2017-08-11 Respiratory Rate 2017-08-11 BMI 32.74 kg/m2 2017-08-11 Blood pressure systolic 124 mmHg 2017-08-11 Blood pressure diastolic 90 mmHg 2017-08-11 MEDICATIONS Medication Instructions Dosage Frequency Start Date End Date Duration Status MiraLax 17 gm/dose Orally Once a day prn 1 packet mixed with 8 ounces of fluid May, Apr, 12 months Active Dulera 100-5 mcg/actuation 2 puffs by Inhalation route 2 times per day 12h 30 Jul, 2012 Active Atorvastatin Calcium 10 mg Orally Once a day 1 tablet 24h May, Active Klonopin 0.5 MG Orally Twice a day as needed 1 tablet Nov, 30 days Active Cefdinir 300 MG Orally every 12 hrs 1 capsule 12h Jul, August, 10 day(s) Active Cymbalta 20 MG Orally twice a day 3 capsule 12h Nov, Active MethylPREDNISolone (Alpesh) 4 MG Orally as directed as directed Jul, August, 07 days Active Gabapentin 300 MG Orally Three times a day 1 capsule 8h May, Active Remeron 30 MG Orally Once a day at bedtime 1 tablet Feb, Active Albuterol Sulfate 2.5 mg /3 mL (0.083 %) Inhalation every 4-6 hours as needed 1 Each by Inhalation route every 4 hours for cough and wheeze PRN for wheezing or cough; Jun, 12 months Active Losartan Potassium 100 MG Orally Once a day 1 tablet 24h Dec, Active Ibuprofen 800 MG Orally Three times a day PRN 1 tablet Oct, Active Melatonin 3 MG Orally Once a day 1 tablet at bedtime as needed with food 24h Active Omeprazole 20 mg Orally Once a day 1 capsule 24h Active RESULTS Name Result Date Reference Range Xray : Chest 2 View (IN HOUSE) 2017-08-11 PROCEDURES Procedure Date Ordered Result Body Site X-RAY EXAM CHEST 2 VIEWS August 11, 2017 INSTRUCTIONS MEDICATIONS ADMINISTERED No Known Medications MEDICAL (GENERAL) HISTORY Type Description Date Medical History COPD Medical History Asthma Medical History Restless leg syndrome Medical History Major depressive disorder, single episode, unspecified Medical History Torsion of intestine, bowel or colon Medical History Torsion of intestine, bowel or colon Surgical History hysterectomy Surgical History orthopedic surgery left wrist x5 Surgical History cholecystectomy Surgical History Laproscopy 05/2015 Surgical History bowel resection 06/2015 Surgical History Hernia Surgery 01/2017 Hospitalization History pneumonia Hospitalization History Surgery(s) Hospitalization History Holder Unit s/p overdose 11/14/16
--- OUTSIDE RECORDS SUMMARY | 2018-11-21 22:03 | XMS REPORT ---
Author Author LOVELACETUSHAR Ryder Organization [facility] Address [address] [place] [address] Care Team Providers Care Line Service Supervisor Name Role Phone LOVELACETUSHAR Ryder Unavailable PROBLEMS Type Condition ICD9-CM Code HCA74-ZN Code Onset Dates Condition Status SNOMED Code Problem Generalized anxiety disorder F41.1 Active 89523806 Problem Hypercholesterolemia E78.00 Active 03394860 Problem Body mass index (BMI) of 32.0-32.9 in adult Z68.32 Active 059986457 Problem Chronic obstructive pulmonary disease, unspecified COPD type J44.9 Active 29492863 Problem Insomnia G47.00 Active 136505850 Problem Other depression F32.89 Active 180833743 Problem Facet arthropathy, lumbar M46.96 Active 272253716 Problem Lumbar spondylosis M47.816 Active 097832097 Problem Lumbago with sciatica, unspecified side M54.40 Active 04920777 Problem Other obesity due to excess calories E66.09 Active 292296828 Problem COPD exacerbation J44.1 Active 317537493 Problem Other chronic pain G89.29 Active 87631217 Problem Restless legs G25.81 Active 69661974 Problem Constipation due to outlet dysfunction K59.02 Active 31457695 Problem COPD (chronic obstructive pulmonary disease) J44.9 Active 75916768 Problem Depression F32.9 Active 98460273 Problem Anxiety F41.9 Active 03171024 Problem Gastroesophageal reflux disease with esophagitis K21.0 Active 838371646 Problem Essential hypertension I10 Active 72746026 Problem Severe episode of recurrent major depressive disorder, without psychotic features F33.2 Active 72371231 Problem Major depressive disorder, recurrent episode, moderate with anxious distress F33.1 Active 180934991 Problem Psychophysiological insomnia F51.04 Active 406909985 ALLERGIES No Information ENCOUNTERS Encounter Location Date Diagnosis [facility] [address] [facility] [id number] [address] Nov, [place] [id number] [place] [address] Oct, [place] [address] [address] Sep, Pain aggravated by standing R52 [place] [address] [address] Sep, Other depression F32.89 [place] [address] [address] Sep, Chronic obstructive pulmonary disease, unspecified COPD type J44.9 ; Pain aggravated by standing R52 ; Other depression F32.89 ; Major depressive disorder, recurrent episode, moderate with anxious distress F33.1 ; Restless legs G25.81 ; Insomnia G47.00 ; Gastroesophageal reflux disease with esophagitis K21.0 ; Essential hypertension I10 ; Generalized anxiety disorder F41.1 and Hypercholesterolemia E78.00 [place] [id number] [place] [address] Jul, Fever, unspecified fever cause R50.9 and Cough R05 [address] [address] Jul, [place] [id number] [place] [address] Jul, Gastroesophageal reflux disease with esophagitis K21.0 [place] [id number] [place] [address] Jul, [place] [id number] [place] [address] Jun, COPD (chronic obstructive pulmonary disease) J44.9 ; Restless legs G25.81 ; Insomnia G47.00 ; Essential hypertension I10 ; Major depressive disorder, recurrent episode, moderate with anxious distress F33.1 ; Gastroesophageal reflux disease with esophagitis K21.0 ; Constipation due to outlet dysfunction K59.02 ; Hypercholesterolemia E78.00 ; Other chronic pain G89.29 and Generalized abdominal pain R10.84 [place] [address] [address] Jun, [place] [id number] [place] [address] Jun, Acute recurrent sinusitis, unspecified location J01.91 and COPD exacerbation J44.1 [place] [id number] [place] [address] Jun, Lumbago with sciatica, unspecified side M54.40 [place] [id number] [place] [address] May, [place] [id number] [place] [address] May, Severe episode of recurrent major depressive disorder, without psychotic features F33.2 [place] [id number] [place] [address] Apr, COPD (chronic obstructive pulmonary disease) J44.9 [...] index (BMI) of 32.0-32.9 in adult Z68.32 [place] [address] [place] [address] Apr, Severe episode of recurrent major depressive disorder, without psychotic features F33.2 [place] [id number] [place] [address] Feb, Severe episode of recurrent major depressive disorder, without psychotic features F33.2 and Restless legs G25.81 [place] [address] [place] [address] Feb, Severe episode of recurrent major depressive disorder, without psychotic features F33.2 ; Generalized anxiety disorder F41.1 and Psychophysiological insomnia F51.04 [place] [id number] [place] [address] Dec, Severe episode of recurrent major depressive disorder, without psychotic features F33.2 ; Generalized anxiety disorder F41.1 and Psychophysiological insomnia F51.04 [facility] [id number] [place] [address] Nov, Severe episode of recurrent major depressive disorder, without psychotic features F33.2 ; Generalized anxiety disorder F41.1 and Psychophysiological insomnia F51.04 [place] [address] [address] Nov, [place] [address] [address] Nov, Depression F32.9 [place] [address] [address] Nov, Depression F32.9 ; Insomnia G47.00 and Anxiety F41.9 [place] [id number] [place] [address] August, COPD (chronic obstructive pulmonary disease) J44.9 ; Depression F32.9 ; Anxiety F41.9 ; Major depressive disorder, recurrent episode, moderate with anxious distress F33.1 ; Insomnia G47.00 ; Restless legs G25.81 ; Essential hypertension I10 and Pure hypercholesterolemia E78.00 [place] [id number] [place] [address] August, Acute intractable tension-type headache G44.201 [facility] [id number] [place] [address] Jul, Left wrist pain M25.532 and Strain of left wrist, initial encounter S66.912A [facility] [id number] [place] [address] May, Gastroesophageal reflux disease with esophagitis K21.0 and Anxiety F41.9 [place] [address] [place] [address] 13 May, 2016 Major depressive disorder, recurrent episode, moderate with anxious distress F33.1 ; COPD (chronic obstructive pulmonary disease) J44.9 ; Restless legs G25.81 ; Insomnia G47.00 ; Essential hypertension I10 ; Anxiety F41.9 ; Constipation due to outlet dysfunction K59.02 ; Torsion of intestine, bowel or colon K56.2 ; Hypercholesterolemia E78.00 and Gastroesophageal reflux disease with esophagitis K21.0 [place] [id number] [place] [address] 07 Feb, 2016 [place] [id number] [place] [address] 20 Dec, 2015 Essential hypertension I10 ; Depression F32.9 ; Anxiety F41.9 ; Constipation due to outlet dysfunction K59.02 ; Torsion of intestine, bowel or colon K56.2 ; COPD (chronic obstructive pulmonary disease) J44.9 ; Insomnia G47.00 ; Restless legs G25.81 and Gastroesophageal reflux disease with esophagitis K21.0 [place] [id number] [place] [address] 08 Dec, 2015 Essential hypertension I10 ; Major depressive disorder, recurrent episode, moderate with anxious distress F33.1 ; COPD (chronic obstructive pulmonary disease) J44.9 ; Restless legs G25.81 ; Insomnia G47.00 ; Constipation due to outlet dysfunction K59.02 and Gastroesophageal reflux disease without esophagitis K21.9 [place] [address] [place] [address] 07 Dec, 2015 Major depressive disorder, recurrent episode, moderate with anxious distress F33.1 [place] [id number] [place] [address] Sep, [place] [id number] [place] [address] 23 Sep, 2015 Nausea R11.0 [place] [id number] [place] [address] Sep, Lower abdominal pain R10.30 ; COPD (chronic obstructive pulmonary disease) J44.9 ; Restless legs G25.81 ; Essential hypertension I10 ; Depression F32.9 ; Other chronic pain G89.29 ; Lumbago with sciatica, unspecified side M54.40 and Primary insomnia F51.01 [place] [address] [address] August, [place] [address] [address] August, COPD (chronic obstructive pulmonary disease) J44.9 ; Insomnia G47.00 ; Depression F32.9 and Constipation due to outlet dysfunction K59.02 [place] [address] [address] August, [place] [address] [address] August, [place] [address] [address] August, Nausea & vomiting R11.2 [place] [address] [address] Jun, [place] [id number] [place] [address] Jun, Unspecified abdominal pain R10.9 ; Depression, major, recurrent, moderate 296.32 ; COPD (chronic obstructive pulmonary disease) J44.9 ; Restless legs G25.81 ; Insomnia G47.00 ; Intestinal abscess K63.0 ; HTN (hypertension) I10 and Hypercholesteremia E78.0 [place] [id number] [place] [address] Jun, Intestinal abscess K63.0 [place] [id number] [place] [address] May, [place] [address] [place] [address] May, [place] [id number] [place] [address] May, Unspecified abdominal pain R10.9 [place] [id number] [place] [address] 08 May, 2015 Depression, major, recurrent, moderate 296.32 ; COPD (chronic obstructive pulmonary disease) J44.9 ; Restless legs G25.81 ; Insomnia G47.00 ; Depression F32.9 ; HTN (hypertension) I10 and Hypercholesterolemia E78.0 [place] [address] [address] Apr, [place] [address] [address] Mar, Cellulitis L03.[address] [address] Feb, Recurrent major depression-severe F33.2 [place] [id number] [place] [address] Feb, Hyperlipemia E78.5 and High blood pressure I10 [place] [id number] [place] [address] Feb, COPD (chronic obstructive pulmonary disease) J44.9 ; Restless legs G25.81 ; Insomnia G47.00 ; Depression F32.9 and HTN (hypertension) I10 [place] [id number] [place] [address] Jan, [address] [address] Jan, Generalized anxiety disorder F41.1 and Recurrent major depression- severe F33.2 [place] [id number] [place] [address] Jan, Bronchitis J40 [place] [id number] [place] [address] Jan, Shoulder pain, right M25.511 and Low back pain M54.5 [facility] [id number] [place] [address] Jan, [facility] [id number] [place] [address] Oct, [facility] [id number] [place] [address] Oct, Generalized anxiety disorder 300.02 and Depression, major, severe recurrence 296.33 [facility] [id number] [place] [address] Oct, [facility] [id number] [place] [address] Oct, Depression, major, recurrent, moderate 296.32 [facility] [id number] [place] [address] August, [facility] [id number] [place] [address] Jul, [facility] [id number] [place] [address] Jul, [facility] [id number] [place] [address] Jun, [facility] [id number] [place] [address] Jun, [facility] [address] [place] [address] May, [facility] [id number] [place] [address] May, [facility] [id number] [place] [address] May, [facility] [id number] [place] [address] May, 2014 [facility] [place] [facility] [address] [id number] [place] [address] May, 2014 [facility] [place] [facility] [address] [id number] [place] [address] May, 2014 [facility] [place] [facility] [address] [id number] [place] [address] May, 2014 [facility] [place] [facility] [address] [id number] [place] [address] May, 2014 [facility] [place] [facility] [address] [id number] [place] [address] May, 2014 [facility] [place] [facility] [address] [facility] [id number] [place] [address] May, 2014 [facility] [place] [facility] [address] [facility] [id number] [place] [address] May, 2014 [facility] [place] [facility] [address] [id number] [place] [address] May, [facility] [place] [facility] [address] [facility] [id number] [place] [address] Apr, [facility] [place] [facility] [address] [facility] [id number] [place] [address] Apr, [facility] [place] [facility] [address] [id number] [place] [address] Apr, [facility] [place] [facility] [address] [id number] [place] [address] Apr, [facility] [place] [facility] [address] [id number] [place] [address] Apr, [facility] [place] [facility] [address] [facility] [id number] [place] [address] Apr, [facility] [place] [facility] [address] [facility] [id number] [place] [address] Apr, [facility] [place] [facility] [address] [id number] [place] [address] Apr, [facility] [place] [facility] [address] [id number] [place] [address] Apr, [facility] [place] [facility] [address] [id number] [place] [address] Apr, [facility] [place] [facility] [address] [id number] [place] [address] Mar, [facility] [place] [facility] [address] [id number] [place] [address] Mar, [facility] [place] [facility] [address] [id number] [place] [address] Mar, [facility] [place] [facility] [address] [id number] [place] [address] Mar, [facility] [place] [facility] [address] [id number] [place] [address] Mar, [facility] [place] [facility] [address] [id number] [place] [address] Feb, [facility] [place] [facility] [address] [id number] [place] [address] Feb, [facility] [place] [facility] [address] [id number] [place] [address] Dec, [facility] [place] [facility] [address] [id number] [place] [address] Dec, [facility] [place] [facility] [address] [id number] [place] [address] Nov, [facility] [place] [facility] [address] [id number] [place] [address] Nov, [facility] [place] [facility] [address] [id number] [place] [address] Nov, [facility] [place] [facility] [address] [id number] [address] Nov, [facility] [place] [facility] [address] [id number] [place] [address] Oct, [facility] [place] [facility] [address] [id number] [place] [address] Oct, [facility] [place] [facility] [address] [id number] [place] [address] Sep, [facility] [place] [facility] [address] [id number] [place] [address] Sep, [facility] [place] [facility] [address] [id number] [place] [address] August, [facility] [place] [facility] [address] [id number] [place] [address] August, [facility] [place] [facility] [address] [facility] [id number] [place] [address] August, [facility] [place] [facility] [address] [id number] [place] [address] August, [facility] [place] [facility] [address] [id number] [place] [address] Jul, [facility] [place] [facility] [address] [facility] [id number] [place] [address] Jul, [facility] [place] [facility] [address] [id number] [place] [address] Jun, [facility] [place] [facility] [address] [id number] [address] Jun, [facility] [place] [facility] [address] [id number] [place] [address] May, [facility] [place] [facility] [address] [id number] [place] [address] May, [facility] [place] [facility] [address] [facility] [id number] [place] [address] May, [facility] [place] [facility] [address] [id number] [place] [address] May, [facility] [place] [facility] [address] [id number] [place] [address] May, [facility] [place] [facility] [address] [id number] [place] [address] May, [facility] [place] [facility] [address] [id number] [place] [address] May, [facility] [place] [facility] [address] [id number] [place] [address] Apr, [facility] [place] [facility] [address] [id number] [place] [address] Apr, [facility] [place] [facility] [address] [id number] [place] [address] Apr, [facility] [place] [facility] [address] [id number] [place] [address] Apr, [facility] [place] [facility] [address] [id number] [place] [address] Apr, [facility] [place] [facility] [address] [id number] [place] [address] Apr, [facility] [place] [facility] [address] [id number] [place] [address] Apr, [facility] [place] [facility] [address] [id number] [place] [address] Apr, [facility] [place] [facility] [address] [id number] [place] [address] Apr, [facility] [place] [facility] [address] [id number] [place] [address] Apr, [facility] [place] [facility] [address] [id number] [place] [address] Mar, [facility] [place] [facility] [address] [id number] [address] Mar, [facility] [place] [facility] [address] [id number] [place] [address] Mar, [facility] [place] [facility] [address] [id number] [place] [address] Mar, [facility] [place] [facility] [address] [id number] [place] [address] Feb, [facility] [place] [facility] [address] [id number] [place] [address] Feb, [facility] [place] [facility] [address] [id number] [place] [address] Feb, [facility] [place] [facility] [address] [id number] [place] [address] Feb, [facility] [place] [facility] [address] [facility] [id number] [place] [address] Feb, [facility] [place] [facility] [address] [id number] [place] [address] Feb, [facility] [place] [facility] [address] [facility] [id number] [place] [address] Jan, [facility] [place] [facility] [address] [facility] [id number] [place] [address] Jan, [facility] [place] [facility] [address] [id number] [address] 05 Dec, 2012 [facility] [place] [facility] [address] [id number] [place] [address] Dec, [facility] [place] [facility] [address] [id number] [place] [address] Nov, [facility] [place] [facility] [address] [facility] [id number] [place] [address] Nov, [facility] [place] [facility] [address] [facility] [id number] [place] [address] Oct, [facility] [place] [facility] [address] [id number] [place] [address] 07 Sep, 2012 [facility] [address] [id number] [place] [address] August, [facility] [place] [facility] [address] [id number] [place] [address] 30 Jul, 2012 [facility] [place] [facility] [address] [id number] [place] [address] 14 Jul, 2012 [facility] [place] [facility] [address] [id number] [place] [address] Jul, [facility] [place] [facility] [address] [id number] [place] [address] Jul, [facility] [place] [facility] [address] [id number] [place] [address] Jul, [facility] [place] [facility] [address] [id number] [place] [address] Jun, [facility] [place] [facility] [address] [id number] [place] [address] May, [facility] [place] [facility] [address] [id number] [place] [address] Apr, [facility] [place] [facility] [address] [id number] [place] [address] Mar, [facility] [place] [facility] [address] [id number] [place] [address] Mar, [facility] [place] [facility] [address] [id number] [place] [address] Mar, [facility] [place] [facility] [address] [id number] [place] [address] Jan, [facility] [place] [facility] [address] [id number] [place] [address] Jan, [facility] [place] [facility] [address] [id number] [place] [address] Jan, [facility] [place] [facility] [address] [id number] [place] [address] Jan, [facility] [place] [facility] [address] [id number] [place] [address] Dec, [facility] [place] [facility] [address] [id number] [place] [address] Dec, [facility] [place] [facility] [address] [id number] [place] [address] Nov, [facility] [place] [facility] [address] [id number] [place] [address] Nov, [facility] [place] [facility] [address] [id number] [place] [address] Nov, [facility] [place] [facility] [address] [id number] [place] [address] Nov, [facility] [place] [facility] [address] [id number] [place] [address] Nov, [facility] [place] [facility] [address] [id number] [place] [address] Oct, [facility] [place] [facility] [address] [id number] [place] [address] Oct, [facility] [place] [facility] [address] [id number] [address] Oct, [facility] [place] [facility] [address] [id number] [address] Sep, [facility] [place] [facility] [address] [id number] [place] [address] August, [facility] [place] [facility] [address] [id number] [place] [address] Jul, [facility] [place] [facility] [address] [id number] [place] [address] Jul, [facility] [place] [facility] [address] [id number] [place] [address] 09 Jul, 2011 [facility] [address] [id number] [place] [address] 05 Jul, 2011 [facility] [place] [facility] [address] [id number] [place] [address] 29 Jun, 2011 [facility] [address] [id number] [place] [address] 28 Jun, 2011 [facility] [place] [facility] [address] [id number] [place] [address] 23 Jun, 2011 [facility] [address] [id number] [place] [address] 21 Jun, 2011 [facility] [address] [id number] [place] [address] 15 Jun, 2011 [facility] [address] [id number] [place] [address] 28 May, 2011 [facility] [address] [id number] [place] [address] 28 May, 2011 [facility] [id number] [address] May, [facility] [address] [facility] [id number] [place] [address] 24 May, 2011 [facility] [address] [id number] [place] [address] Apr, [facility] [address] [id number] [place] [address] Mar, [facility] [place] [facility] [address] [id number] [place] [address] Mar, [facility] [place] [facility] [address] [id number] [place] [address] 17 Jun, 2010 [facility] [address] [facility] [id number] [place] [address] Feb, [facility] [id number] [address] Jan, [facility] [id number] [address] Jan, [facility] [id number] [address] Jan, [facility] [id number] [address] Dec, [facility] [id number] [address] May, [facility] [id number] [address] Feb, [facility] [id number] [address] Feb, [facility] [id number] [address] Feb, IMMUNIZATIONS No Known Immunizations SOCIAL HISTORY Never Assessed REASON FOR VISIT Lab results PLAN OF CARE VITAL SIGNS MEDICATIONS Medication [...]
--- OUTSIDE RECORDS SUMMARY | 2018-11-21 22:03 | XMS REPORT ---
Author Author ROSALINDA MATHUR Organization [facility] Address [address] [place] [address] Care Team Providers Care Superior Court Judge Name Role Phone ROSALINDA MATHUR Unavailable PROBLEMS Type Condition ICD9-CM Code [id number] Code Onset Dates Condition Status SNOMED Code Problem Generalized anxiety disorder F41.1 Active 72595113 Problem Hypercholesterolemia E78.00 Active 42371549 Problem Body mass index (BMI) of 32.0-32.9 in adult Z68.32 Active 377221529 Problem Chronic obstructive pulmonary disease, unspecified COPD type J44.9 Active 43877211 Problem Insomnia G47.00 Active 774657305 Problem Other depression F32.89 Active 197404978 Problem Facet arthropathy, lumbar M46.96 Active 709138099 Problem Lumbar spondylosis M47.816 Active 140342128 Problem Lumbago with sciatica, unspecified side M54.40 Active 40809096 Problem Other obesity due to excess calories E66.09 Active 559472858 Problem COPD exacerbation J44.1 Active 995093531 Problem Other chronic pain G89.29 Active 33157451 Problem Restless legs G25.81 Active 89707194 Problem Constipation due to outlet dysfunction K59.02 Active 90900748 Problem COPD (chronic obstructive pulmonary disease) J44.9 Active 19702159 Problem Depression F32.9 Active 98953252 Problem Anxiety F41.9 Active 28995207 Problem Gastroesophageal reflux disease with esophagitis K21.0 Active 390842399 Problem Essential hypertension I10 Active 89010068 Problem Severe episode of recurrent major depressive disorder, without psychotic features F33.2 Active 92933699 Problem Major depressive disorder, recurrent episode, moderate with anxious distress F33.1 Active 586997501 Problem Psychophysiological insomnia F51.04 Active 225596785 ALLERGIES No Information ENCOUNTERS Encounter Location Date Diagnosis [facility] [address] [facility] [id number] [address] Nov, [place] [address] [id number] [place] [address] Oct, [place] [address] [address] Sep, Pain aggravated by standing R52 [place] [address] [address] Sep, Other depression F32.89 [place] [address] [address] Sep, Chronic obstructive pulmonary disease, unspecified COPD type J44.9 ; Pain aggravated by standing R52 ; Other depression F32.89 ; Major depressive disorder, recurrent episode, moderate with anxious distress F33.1 ; Restless legs G25.81 ; Insomnia G47.00 ; Gastroesophageal reflux disease with esophagitis K21.0 ; Essential hypertension I10 ; Generalized anxiety disorder F41.1 and Hypercholesterolemia E78.00 [place] [address] [address] Jul, Fever, unspecified fever cause R50.9 and Cough R[address] [address] Jul, [place] [address] [address] Jul, Gastroesophageal reflux disease with esophagitis K21.0 [place] [id number] [address] Jul, [place] [address] [address] Jun, COPD (chronic obstructive pulmonary disease) J44.9 ; Restless legs G25.81 ; Insomnia G47.00 ; Essential hypertension I10 ; Major depressive disorder, recurrent episode, moderate with anxious distress F33.1 ; Gastroesophageal reflux disease with esophagitis K21.0 ; Constipation due to outlet dysfunction K59.02 ; Hypercholesterolemia E78.00 ; Other chronic pain G89.29 and Generalized abdominal pain R10.84 [place] [address] [address] Jun, [place] [id number] [address] Jun, Acute recurrent sinusitis, unspecified location J01.91 and COPD exacerbation J44.1 [place] [id number] [place] [address] Jun, Lumbago with sciatica, unspecified side M54.40 [place] [id number] [address] May, [place] [id number] [address] May, Severe episode of recurrent major depressive disorder, without psychotic features F33.2 [place] [id number] [place] [address] Apr, COPD (chronic obstructive pulmonary disease) J44.9 [...] index (BMI) of 32.0-32.9 in adult Z68.32 [place] [id number] [place] [address] Apr, Severe episode of recurrent major depressive disorder, without psychotic features F33.2 [place] [id number] [place] [address] Feb, Severe episode of recurrent major depressive disorder, without psychotic features F33.2 and Restless legs G25.81 [place] [id number] [place] [address] Feb, Severe episode of recurrent major depressive disorder, without psychotic features F33.2 ; Generalized anxiety disorder F41.1 and Psychophysiological insomnia F51.04 [place] [id number] [address] Dec, Severe episode of recurrent major depressive disorder, without psychotic features F33.2 ; Generalized anxiety disorder F41.1 and Psychophysiological insomnia F51.04 [facility] [id number] [address] Nov, Severe episode of recurrent major depressive disorder, without psychotic features F33.2 ; Generalized anxiety disorder F41.1 and Psychophysiological insomnia F51.04 [place] [address] [address] Nov, [place] [address] [address] Nov, Depression F32.9 [place] [address] [address] Nov, Depression F32.9 ; Insomnia G47.00 and Anxiety F41.9 [place] [id number] [place] [address] August, COPD (chronic obstructive pulmonary disease) J44.9 ; Depression F32.9 ; Anxiety F41.9 ; Major depressive disorder, recurrent episode, moderate with anxious distress F33.1 ; Insomnia G47.00 ; Restless legs G25.81 ; Essential hypertension I10 and Pure hypercholesterolemia E78.00 [place] [id number] [place] [address] August, Acute intractable tension-type headache G44.201 [facility] [id number] [address] Jul, Left wrist pain M25.532 and Strain of left wrist, initial encounter S66.912A [facility] [id number] [place] [address] May, Gastroesophageal reflux disease with esophagitis K21.0 and Anxiety F41.9 [place] [id number] [place] [address] 13 May, 2016 Major depressive disorder, recurrent episode, moderate with anxious distress F33.1 ; COPD (chronic obstructive pulmonary disease) J44.9 ; Restless legs G25.81 ; Insomnia G47.00 ; Essential hypertension I10 ; Anxiety F41.9 ; Constipation due to outlet dysfunction K59.02 ; Torsion of intestine, bowel or colon K56.2 ; Hypercholesterolemia E78.00 and Gastroesophageal reflux disease with esophagitis K21.0 [place] [id number] [place] [address] 07 Feb, 2016 [place] [id number] [address] 20 Dec, 2015 Essential hypertension I10 ; Depression F32.9 ; Anxiety F41.9 ; Constipation due to outlet dysfunction K59.02 ; Torsion of intestine, bowel or colon K56.2 ; COPD (chronic obstructive pulmonary disease) J44.9 ; Insomnia G47.00 ; Restless legs G25.81 and Gastroesophageal reflux disease with esophagitis K21.0 [place] [id number] [place] [address] 08 Dec, 2015 Essential hypertension I10 ; Major depressive disorder, recurrent episode, moderate with anxious distress F33.1 ; COPD (chronic obstructive pulmonary disease) J44.9 ; Restless legs G25.81 ; Insomnia G47.00 ; Constipation due to outlet dysfunction K59.02 and Gastroesophageal reflux disease without esophagitis K21.9 [place] [id number] [place] [address] 07 Dec, 2015 Major depressive disorder, recurrent episode, moderate with anxious distress F33.1 [place] [id number] [place] [address] Sep, [place] [id number] [address] Sep, Nausea R11.0 [place] [id number] [place] [address] Sep, Lower abdominal pain R10.30 ; COPD (chronic obstructive pulmonary disease) J44.9 ; Restless legs G25.81 ; Essential hypertension I10 ; Depression F32.9 ; Other chronic pain G89.29 ; Lumbago with sciatica, unspecified side M54.40 and Primary insomnia F51.01 [place] [id number] [place] [address] August, [place] [address] [address] August, COPD (chronic obstructive pulmonary disease) J44.9 ; Insomnia G47.00 ; Depression F32.9 and Constipation due to outlet dysfunction K59.02 [place] [id number] [address] August, [place] [address] [address] August, [place] [id number] [place] [address] August, Nausea & vomiting R11.2 [place] [id number] [address] Jun, [place] [id number] [address] Jun, Unspecified abdominal pain R10.9 ; Depression, major, recurrent, moderate 296.32 ; COPD (chronic obstructive pulmonary disease) J44.9 ; Restless legs G25.81 ; Insomnia G47.00 ; Intestinal abscess K63.0 ; HTN (hypertension) I10 and Hypercholesteremia E78.0 [place] [id number] [address] Jun, Intestinal abscess K63.0 [place] [id number] [place] [address] May, [place] [address] [place] [address] May, [place] [address] [address] [id number] [address] May, Unspecified abdominal pain R10.9 [place] [id number] [place] [address] 08 May, 2015 Depression, major, recurrent, moderate 296.32 ; COPD (chronic obstructive pulmonary disease) J44.9 ; Restless legs G25.81 ; Insomnia G47.00 ; Depression F32.9 ; HTN (hypertension) I10 and Hypercholesterolemia E78.0 [place] [address] [address] Apr, [place] [address] [address] Mar, Cellulitis L03.[address] [address] Feb, Recurrent major depression-severe F33.2 [place] [id number] [place] [address] Feb, Hyperlipemia E78.5 and High blood pressure I10 [place] [id number] [place] [address] Feb, COPD (chronic obstructive pulmonary disease) J44.9 ; Restless legs G25.81 ; Insomnia G47.00 ; Depression F32.9 and HTN (hypertension) I10 [place] [id number] [address] Jan, [address] [address] Jan, Generalized anxiety disorder F41.1 and Recurrent major depression- severe F33.2 [place] [id number] [place] [address] Jan, Bronchitis J40 [place] [address] [address] Jan, Shoulder pain, right M25.511 and Low back pain M54.5 [facility] [id number] [address] Jan, [facility] [id number] [address] Oct, [facility] [id number] [place] [address] Oct, Generalized anxiety disorder 300.02 and Depression, major, severe recurrence 296.33 [facility] [id number] [address] Oct, [facility] [id number] [place] [address] Oct, Depression, major, recurrent, moderate 296.32 [facility] [id number] [address] August, [facility] [id number] [place] [address] Jul, [facility] [id number] [address] Jul, [facility] [id number] [place] [address] Jun, [facility] [id number] [place] [address] Jun, [facility] [id number] [place] [address] May, [facility] [id number] [place] [address] May, [facility] [id number] [place] [address] May, [facility] [id number] [place] [address] May, 2014 [facility] [place] [facility] [address] [id number] [place] [address] May, 2014 [facility] [place] [facility] [address] [id number] [place] [address] May, 2014 [facility] [place] [facility] [address] [id number] [place] [address] May, 2014 [facility] [place] [facility] [address] [id number] [place] [address] May, 2014 [facility] [place] [facility] [address] [id number] [place] [address] May, 2014 [facility] [place] [facility] [address] [facility] [id number] [place] [address] May, 2014 [facility] [place] [facility] [address] [facility] [id number] [place] [address] May, 2014 [facility] [place] [facility] [address] [facility] [id number] [place] [address] May, [facility] [place] [facility] [address] [facility] [id number] [place] [address] Apr, [facility] [place] [facility] [address] [facility] [id number] [place] [address] Apr, [facility] [place] [facility] [address] [facility] [id number] [place] [address] Apr, [facility] [place] [facility] [address] [id number] [place] [address] Apr, [facility] [place] [facility] [address] [id number] [place] [address] Apr, [facility] [place] [facility] [address] [facility] [id number] [place] [address] Apr, [facility] [place] [facility] [address] [facility] [id number] [place] [address] Apr, [facility] [place] [facility] [address] [id number] [place] [address] Apr, [facility] [place] [facility] [address] [id number] [place] [address] Apr, [facility] [place] [facility] [address] [id number] [place] [address] Apr, [facility] [place] [facility] [address] [id number] [place] [address] Mar, [facility] [place] [facility] [address] [id number] [place] [address] Mar, [facility] [place] [facility] [address] [id number] [place] [address] Mar, [facility] [place] [facility] [address] [id number] [place] [address] Mar, [facility] [place] [facility] [address] [id number] [place] [address] Mar, [facility] [place] [facility] [address] [id number] [place] [address] Feb, [facility] [place] [facility] [address] [id number] [place] [address] Feb, [facility] [place] [facility] [address] [id number] [place] [address] Dec, [facility] [place] [facility] [address] [id number] [place] [address] Dec, [facility] [place] [facility] [address] [id number] [place] [address] Nov, [facility] [place] [facility] [address] [id number] [place] [address] Nov, [facility] [place] [facility] [address] [id number] [place] [address] Nov, [facility] [place] [facility] [address] [id number], [place] [address] Nov, [facility] [place] [facility] [address] [id number] [place] [address] Oct, [facility] [place] [facility] [address] [id number] [place] [address] Oct, [facility] [place] [facility] [address] [id number] [place] [address] Sep, [facility] [place] [facility] [address] [id number] [place] [address] Sep, [facility] [place] [facility] [address] [id number] [place] [address] August, [facility] [place] [facility] [address] [id number] [place] [address] August, [facility] [place] [facility] [address] [id number] [place] [address] August, [facility] [place] [facility] [address] [id number] [place] [address] August, [facility] [place] [facility] [address] [id number] [place] [address] Jul, [facility] [place] [facility] [address] [id number] [place] [address] Jul, [facility] [place] [facility] [address] [id number] [place] [address] Jun, [facility] [place] [facility] [address] [id number] [place] [address] Jun, [facility] [place] [facility] [address] [id number] [place] [address] May, [facility] [place] [facility] [address] [id number] [place] [address] May, [facility] [place] [facility] [address] [facility] [id number] [place] [address] May, [facility] [place] [facility] [address] [id number] [place] [address] May, [facility] [place] [facility] [address] [id number] [place] [address] May, [facility] [place] [facility] [address] [id number] [place] [address] May, [facility] [place] [facility] [address] [id number] [place] [address] May, [facility] [place] [facility] [address] [id number] [place] [address] Apr, [facility] [place] [facility] [address] [id number] [place] [address] Apr, [facility] [place] [facility] [address] [id number] [place] [address] Apr, [facility] [place] [facility] [address] [id number] [place] [address] Apr, [facility] [place] [facility] [address] [id number] [place] [address] Apr, [facility] [place] [facility] [address] [id number] [place] [address] Apr, [facility] [place] [facility] [address] [id number] [place] [address] Apr, [facility] [place] [facility] [address] [id number] [place] [address] Apr, [facility] [place] [facility] [address] [id number] [place] [address] Apr, [facility] [place] [facility] [address] [id number] [place] [address] Apr, [facility] [place] [facility] [address] [id number] [place] [address] Mar, [facility] [place] [facility] [address] [id number], [place] [address] Mar, [facility] [place] [facility] [address] [id number] [place] [address] Mar, [facility] [place] [facility] [address] [id number] [place] [address] Mar, [facility] [place] [facility] [address] [id number] [place] [address] Feb, [facility] [place] [facility] [address] [id number] [place] [address] Feb, [facility] [place] [facility] [address] [id number] [place] [address] Feb, [facility] [place] [facility] [address] [id number] [place] [address] Feb, [facility] [place] [facility] [address] [id number] [place] [address] Feb, [facility] [place] [facility] [address] [id number] [place] [address] Feb, [facility] [place] [facility] [address] [id number] [place] [address] Jan, [facility] [place] [facility] [address] [id number] [place] [address] Jan, [facility] [place] [facility] [address] [id number], [place] [address] Dec, [facility] [place] [facility] [address] [id number], [place] [address] Dec, [facility] [place] [facility] [address] [id number] [place] [address] Nov, [facility] [place] [facility] [address] [id number] [place] [address] Nov, [facility] [place] [facility] [address] [id number] [place] [address] Oct, [facility] [place] [facility] [address] [id number] [place] [address] 07 Sep, 2012 [facility] [address] [id number] [place] [address] August, [facility] [place] [facility] [address] [id number] [place] [address] 30 Jul, 2012 [facility] [address] [id number] [place] [address] 14 Jul, 2012 [facility] [place] [facility] [address] [id number] [place] [address] Jul, [facility] [address] [id number] [place] [address] Jul, [facility] [place] [facility] [address] [id number] [place] [address] Jul, [facility] [place] [facility] [address] [id number] [place] [address] Jun, [facility] [address] [id number] [place] [address] May, [facility] [address] [id number] [place] [address] Apr, [facility] [address] [facility] [id number] [place] [address] Mar, [facility] [place] [facility] [address] [id number] [place] [address] Mar, [facility] [place] [facility] [address] [id number] [place] [address] Mar, [facility] [place] [facility] [address] [id number] [place] [address] Jan, [facility] [place] [facility] [address] [id number] [place] [address] Jan, [facility] [place] [facility] [address] [id number] [place] [address] Jan, [facility] [place] [facility] [address] [id number] [place] [address] Jan, [facility] [place] [facility] [address] [id number] [place] [address] Dec, [facility] [place] [facility] [address] [id number] [place] [address] Dec, [facility] [place] [facility] [address] [id number] [place] [address] Nov, [facility] [place] [facility] [address] [id number] [place] [address] Nov, [facility] [place] [facility] [address] [id number] [place] [address] Nov, [facility] [place] [facility] [address] [id number] [place] [address] Nov, [facility] [place] [facility] [address] [id number] [place] [address] Nov, [facility] [place] [facility] [address] [id number] [place] [address] Oct, [facility] [place] [facility] [address] [id number] [place] [address] Oct, [facility] [place] [facility] [address] [id number] [place] [address] Oct, [facility] [place] [facility] [address] [id number], [place] [address] Sep, [facility] [place] [facility] [address] [id number] [place] [address] August, [facility] [place] [facility] [address] [id number] [place] [address] Jul, [facility] [place] [facility] [address] [id number] [place] [address] Jul, [facility] [place] [facility] [address] [id number] [place] [address] 09 Jul, 2011 [facility] [address] [id number] [place] [address] 05 Jul, 2011 [facility] [place] [facility] [address] [id number] [place] [address] 29 Jun, 2011 [facility] [address] [id number] [place] [address] 28 Jun, 2011 [facility] [facility] [facility] [address] [id number] [place] [address] 23 Jun, 2011 [facility] [address] [id number] [place] [address] Jun, [facility] [place] [facility] [address] [id number] [place] [address] 15 Jun, 2011 [facility] [address] [id number] [place] [address] 28 May, 2011 [facility] [place] [facility] [address] [id number] [place] [address] 28 May, 2011 [facility] [place] [facility] [address] [id number] [place] [address] May, [facility] [address] [facility] [id number] [place] [address] 24 May, 2011 [facility] [facility] [address] [id number] [place] [address] Apr, [facility] [place] [facility] [address] [id number] [place] [address] Mar, [facility] [place] [facility] [address] [id number] [place] [address] Mar, [facility] [place] [facility] [address] [id number] [place] [address] 17 Jun, 2010 [facility] [place] [facility] [address] [facility] [id number] [place] [address] Feb, [facility] [id number] [address] Jan, [facility] [id number] [place] [address] Jan, [facility] [id number] [place] [address] Jan, [facility] [id number] [place] [address] Dec, [facility] [id number] [place] [address] May, [facility] [id number] [place] [address] Feb, [facility] [id number] [place] [address] Feb, [facility] [id number] [address] Feb, IMMUNIZATIONS No Known Immunizations SOCIAL HISTORY Never Assessed REASON FOR VISIT Reschedule appt PLAN OF CARE VITAL SIGNS MEDICATIONS Unknown [...]
--- OUTSIDE RECORDS SUMMARY | 2018-11-21 22:04 | XMS REPORT ---
Author Author LYNN SOTO Organization [facility] Address [address] [place] [address] Care Team Providers Care Senior Corporate Accountant Name Role Phone LYNN SOTO Unavailable PROBLEMS Type Condition ICD9-CM Code ZVJ11-LI Code Onset Dates Condition Status SNOMED Code Problem Generalized anxiety disorder F41.1 Active 49311131 Problem Hypercholesterolemia E78.00 Active 42530322 Problem Body mass index (BMI) of 32.0-32.9 in adult Z68.32 Active 578692906 Problem Chronic obstructive pulmonary disease, unspecified COPD type J44.9 Active 08056161 Problem Insomnia G47.00 Active 423509101 Problem Other depression F32.89 Active 797484302 Problem Facet arthropathy, lumbar M46.96 Active 538753577 Problem Lumbar spondylosis M47.816 Active 093172758 Problem Lumbago with sciatica, unspecified side M54.40 Active 60022695 Problem Other obesity due to excess calories E66.09 Active 733871265 Problem COPD exacerbation J44.1 Active 747438370 Problem Other chronic pain G89.29 Active 33284275 Problem Restless legs G25.81 Active 57831095 Problem Constipation due to outlet dysfunction K59.02 Active 61786489 Problem COPD (chronic obstructive pulmonary disease) J44.9 Active 59641606 Problem Depression F32.9 Active 36209820 Problem Anxiety F41.9 Active 31158763 Problem Gastroesophageal reflux disease with esophagitis K21.0 Active 223940709 Problem Essential hypertension I10 Active 10683313 Problem Severe episode of recurrent major depressive disorder, without psychotic features F33.2 Active 14597651 Problem Major depressive disorder, recurrent episode, moderate with anxious distress F33.1 Active 634910797 Problem Psychophysiological insomnia F51.04 Active 502530729 ALLERGIES No Information ENCOUNTERS Encounter Location Date Diagnosis [facility] [address] [facility] [id number] [address] Nov, [place] [address] [place] [id number] [place] [address] Oct, [place] [address] [address] Sep, Pain aggravated by standing R52 [place] [address] [address] Sep, Other depression F32.89 [place] [address] [address] Sep, Chronic obstructive pulmonary disease, unspecified COPD type J44.9 ; Pain aggravated by standing R52 ; Other depression F32.89 ; Major depressive disorder, recurrent episode, moderate with anxious distress F33.1 ; Restless legs G25.81 ; Insomnia G47.00 ; Gastroesophageal reflux disease with esophagitis K21.0 ; Essential hypertension I10 ; Generalized anxiety disorder F41.1 and Hypercholesterolemia E78.00 [place] [address] [address] Jul, Fever, unspecified fever cause R50.9 and Cough R05 [address] [address] Jul, [place] [address] [address] Jul, Gastroesophageal reflux disease with esophagitis K21.0 [place] [address] [place] [id number] [place] [address] Jul, [place] [address] [address] Jun, COPD (chronic obstructive pulmonary disease) J44.9 ; Restless legs G25.81 ; Insomnia G47.00 ; Essential hypertension I10 ; Major depressive disorder, recurrent episode, moderate with anxious distress F33.1 ; Gastroesophageal reflux disease with esophagitis K21.0 ; Constipation due to outlet dysfunction K59.02 ; Hypercholesterolemia E78.00 ; Other chronic pain G89.29 and Generalized abdominal pain R10.84 [place] [address] [address] Jun, [place] [address] [place] [id number] [place] [address] Jun, Acute recurrent sinusitis, unspecified location J01.91 and COPD exacerbation J44.1 [place] [address] [place] [id number] [place] [address] Jun, Lumbago with sciatica, unspecified side M54.40 [place] [address] [place] [id number] [place] [address] May, [place] [address] [place] [id number] [place] [address] May, Severe episode of recurrent major depressive disorder, without psychotic features F33.2 [place] [address] [place] [id number] [place] [address] Apr, COPD (chronic obstructive pulmonary disease) J44.9 [...] index (BMI) of 32.0-32.9 in adult Z68.32 [place] [id number] [place] [address] Apr, Severe episode of recurrent major depressive disorder, without psychotic features F33.2 [place] [address] [place] [id number] [place] [address] Feb, Severe episode of recurrent major depressive disorder, without psychotic features F33.2 and Restless legs G25.81 [place] [id number] [place] [address] Feb, Severe episode of recurrent major depressive disorder, without psychotic features F33.2 ; Generalized anxiety disorder F41.1 and Psychophysiological insomnia F51.04 [place] [address] [place] [id number] [place] [address] Dec, Severe episode of recurrent major depressive disorder, without psychotic features F33.2 ; Generalized anxiety disorder F41.1 and Psychophysiological insomnia F51.04 [facility] [address] [place] [id number] [place] [address] Nov, Severe episode of recurrent major depressive disorder, without psychotic features F33.2 ; Generalized anxiety disorder F41.1 and Psychophysiological insomnia F51.04 [place] [address] [address] Nov, [place] [address] [address] Nov, Depression F32.9 [place] [address] [address] Nov, Depression F32.9 ; Insomnia G47.00 and Anxiety F41.9 [place] [address] [address] August, COPD (chronic obstructive pulmonary disease) J44.9 ; Depression F32.9 ; Anxiety F41.9 ; Major depressive disorder, recurrent episode, moderate with anxious distress F33.1 ; Insomnia G47.00 ; Restless legs G25.81 ; Essential hypertension I10 and Pure hypercholesterolemia E78.00 [place] [address] [place] [id number] [place] [address] August, Acute intractable tension-type headache G44.201 [facility] [address] [place] [address] [id number] [place] [address] Jul, Left wrist pain M25.532 and Strain of left wrist, initial encounter S66.912A [facility] [address] [address] May, Gastroesophageal reflux disease with esophagitis K21.0 and Anxiety F41.9 [place] [id number] [place] [address] 13 May, 2016 Major depressive disorder, recurrent episode, moderate with anxious distress F33.1 ; COPD (chronic obstructive pulmonary disease) J44.9 ; Restless legs G25.81 ; Insomnia G47.00 ; Essential hypertension I10 ; Anxiety F41.9 ; Constipation due to outlet dysfunction K59.02 ; Torsion of intestine, bowel or colon K56.2 ; Hypercholesterolemia E78.00 and Gastroesophageal reflux disease with esophagitis K21.0 [place] [address] [place] [id number] [place] [address] 07 Feb, 2016 [place] [address] [place] [id number] [place] [address] 20 Dec, 2015 Essential hypertension I10 ; Depression F32.9 ; Anxiety F41.9 ; Constipation due to outlet dysfunction K59.02 ; Torsion of intestine, bowel or colon K56.2 ; COPD (chronic obstructive pulmonary disease) J44.9 ; Insomnia G47.00 ; Restless legs G25.81 and Gastroesophageal reflux disease with esophagitis K21.0 [place] [address] [place] [id number] [place] [address] 08 Dec, 2015 Essential hypertension I10 ; Major depressive disorder, recurrent episode, moderate with anxious distress F33.1 ; COPD (chronic obstructive pulmonary disease) J44.9 ; Restless legs G25.81 ; Insomnia G47.00 ; Constipation due to outlet dysfunction K59.02 and Gastroesophageal reflux disease without esophagitis K21.9 [place] [id number] [place] [address] 07 Dec, 2015 Major depressive disorder, recurrent episode, moderate with anxious distress F33.1 [place] [address] [place] [id number] [place] [address] Sep, [place] [address] [place] [id number] [place] [address] Sep, Nausea R11.0 [place] [address] [place] [id number] [place] [address] Sep, Lower abdominal pain R10.30 ; COPD (chronic obstructive pulmonary disease) J44.9 ; Restless legs G25.81 ; Essential hypertension I10 ; Depression F32.9 ; Other chronic pain G89.29 ; Lumbago with sciatica, unspecified side M54.40 and Primary insomnia F51.01 [place] [address] [place] [id number] [place] [address] August, [place] [address] [address] August, COPD (chronic obstructive pulmonary disease) J44.9 ; Insomnia G47.00 ; Depression F32.9 and Constipation due to outlet dysfunction K59.02 [place] [address] [place] [id number] [place] [address] August, [place] [address] [address] August, [place] [address] [place] [id number] [place] [address] August, Nausea & vomiting R11.2 [place] [address] [place] [id number] [place] [address] Jun, [place] [address] [place] [id number] [place] [address] Jun, Unspecified abdominal pain R10.9 ; Depression, major, recurrent, moderate 296.32 ; COPD (chronic obstructive pulmonary disease) J44.9 ; Restless legs G25.81 ; Insomnia G47.00 ; Intestinal abscess K63.0 ; HTN (hypertension) I10 and Hypercholesteremia E78.0 [place] [address] [place] [id number] [place] [address] Jun, Intestinal abscess K63.0 [place] [address] [place] [id number] [place] [address] May, [place] [address] [address] May, [place] [address] [place] [id number] [place] [address] May, Unspecified abdominal pain R10.9 [place] [address] [place] [id number] [place] [address] 08 May, 2015 Depression, major, recurrent, moderate 296.32 ; COPD (chronic obstructive pulmonary disease) J44.9 ; Restless legs G25.81 ; Insomnia G47.00 ; Depression F32.9 ; HTN (hypertension) I10 and Hypercholesterolemia E78.0 [place] [address] [place] [id number] [place] [address] Apr, [place] [address] [place] [id number] [place] [address] Mar, Cellulitis L03.[address] [address] Feb, Recurrent major depression-severe F33.2 [place] [address] [place] [id number] [place] [address] Feb, Hyperlipemia E78.5 and High blood pressure I10 [place] [address] [place] [id number] [place] [address] Feb, COPD (chronic obstructive pulmonary disease) J44.9 ; Restless legs G25.81 ; Insomnia G47.00 ; Depression F32.9 and HTN (hypertension) I10 [place] [address] [place] [id number] [place] [address] Jan, [place] [address] [place] [id number] [place] [address] Jan, Generalized anxiety disorder F41.1 and Recurrent major depression- severe F33.2 [place] [address] [place] [id number] [place] [address] Jan, Bronchitis J40 [place] [address] [place] [address] Jan, Shoulder pain, right M25.511 and Low back pain M54.5 [facility] [address] [place] [id number] [place] [address] Jan, [facility] [address] [place] [id number] [place] [address] Oct, [facility] [address] [place] [id number] [place] [address] Oct, Generalized anxiety disorder 300.02 and Depression, major, severe recurrence 296.33 [facility] [address] [place] [id number] [place] [address] Oct, [facility] [address] [place] [id number] [place] [address] Oct, Depression, major, recurrent, moderate 296.32 [facility] [address] [place] [id number] [place] [address] August, [facility] [address] [id number] [place] [address] Jul, [facility] [address] [id number] [place] [address] Jul, [facility] [address] [address] Jun, [facility] [address] [place] [id number] [place] [address] Jun, [facility] [id number] [place] [address] May, [facility] [address] [place] [id number] [place] [address] May, [facility] [address], [place] [address] May, [facility] [address] [place] [id number] [place] [address] May, 2014 [facility] [place] [facility] [address] [id number] [place] [address] May, 2014 [facility] [place] [facility] [address] [id number] [place] [address] May, 2014 [facility] [place] [facility] [address] [id number] [place] [address] May, 2014 [facility] [place] [facility] [address] [id number] [place] [address] May, 2014 [facility] [place] [facility] [address] [id number] [place] [address] May, 2014 [facility] [place] [facility] [address] [id number] [place] [address] May, 2014 [facility] [place] [facility] [address] [facility] [id number] [place] [address] May, 2014 [facility] [place] [facility] [address] [facility] [id number] [place] [address] May, [facility] [place] [facility] [address] [facility] [id number] [place] [address] Apr, [facility] [place] [facility] [address] [facility] [id number] [place] [address] Apr, [facility] [place] [facility] [address] [id number] [place] [address] Apr, [facility] [place] [facility] [address] [id number] [place] [address] Apr, [facility] [place] [facility] [address] [id number] [place] [address] Apr, [facility] [place] [facility] [address] [facility] [id number] [place] [address] Apr, [facility] [place] [facility] [address] [facility] [id number] [place] [address] Apr, [facility] [place] [facility] [address] [id number] [place] [address] Apr, [facility] [place] [facility] [address] [id number] [place] [address] Apr, [facility] [place] [facility] [address] [id number] [place] [address] Apr, [facility] [place] [facility] [address] [id number] [place] [address] Mar, [facility] [place] [facility] [address] [id number] [place] [address] Mar, [facility] [place] [facility] [address] [id number] [place] [address] Mar, [facility] [place] [facility] [address] [id number] [place] [address] Mar, [facility] [place] [facility] [address] [id number] [place] [address] Mar, [facility] [place] [facility] [address] [id number] [place] [address] Feb, [facility] [place] [facility] [address] [id number] [place] [address] Feb, [facility] [place] [facility] [address] [id number] [place] [address] Dec, [facility] [place] [facility] [address] [id number] [place] [address] Dec, [facility] [place] [facility] [address] [id number] [place] [address] Nov, [facility] [place] [facility] [address] [id number] [place] [address] Nov, [facility] [place] [facility] [address] [id number] [place] [address] Nov, [facility] [place] [facility] [address] [id number], [place] [address] Nov, [facility] [place] [facility] [address] [id number] [place] [address] Oct, [facility] [place] [facility] [address] [id number] [place] [address] Oct, [facility] [place] [facility] [address] [id number] [place] [address] Sep, [facility] [place] [facility] [address] [id number] [place] [address] Sep, [facility] [place] [facility] [address] [id number] [place] [address] August, [facility] [place] [facility] [address] [id number] [place] [address] August, [facility] [place] [facility] [address] [id number] [place] [address] August, [facility] [place] [facility] [address] [id number] [place] [address] August, [facility] [place] [facility] [address] [id number] [place] [address] Jul, [facility] [place] [facility] [address] [id number] [place] [address] Jul, [facility] [place] [facility] [address] [id number] [place] [address] Jun, [facility] [place] [facility] [address] [id number] [place] [address] Jun, [facility] [place] [facility] [address] [id number] [place] [address] May, [facility] [place] [facility] [address] [id number] [place] [address] May, [facility] [place] [facility] [address] [id number] [place] [address] May, [facility] [place] [facility] [address] [id number] [place] [address] May, [facility] [place] [facility] [address] [id number] [place] [address] May, [facility] [place] [facility] [address] [id number] [place] [address] May, [facility] [place] [facility] [address] [id number] [place] [address] May, [facility] [place] [facility] [address] [id number] [place] [address] Apr, [facility] [place] [facility] [address] [id number] [place] [address] Apr, [facility] [place] [facility] [address] [id number] [place] [address] Apr, [facility] [place] [facility] [address] [id number] [place] [address] Apr, [facility] [place] [facility] [address] [id number] [place] [address] Apr, [facility] [place] [facility] [address] [id number] [place] [address] Apr, [facility] [place] [facility] [address] [id number] [place] [address] Apr, [facility] [place] [facility] [address] [id number] [place] [address] Apr, [facility] [place] [facility] [address] [id number] [place] [address] Apr, [facility] [place] [facility] [address] [id number] [place] [address] Apr, [facility] [place] [facility] [address] [id number] [place] [address] Mar, [facility] [place] [facility] [address] [id number], [place] [address] Mar, [facility] [place] [facility] [address] [id number] [place] [address] Mar, [facility] [place] [facility] [address] [id number] [place] [address] Mar, [facility] [place] [facility] [address] [id number] [place] [address] Feb, [facility] [place] [facility] [address] [id number] [place] [address] Feb, [facility] [place] [facility] [address] [id number] [place] [address] Feb, [facility] [place] [facility] [address] [id number] [place] [address] Feb, [facility] [place] [facility] [address] [id number] [place] [address] Feb, [facility] [place] [facility] [address] [id number] [place] [address] Feb, [facility] [place] [facility] [address] [id number] [place] [address] Jan, [facility] [place] [facility] [address] [id number] [place] [address] Jan, [facility] [place] [facility] [address] [id number], [place] [address] Dec, [facility] [place] [facility] [address] [id number], [place] [address] Dec, [facility] [place] [facility] [address] [id number] [place] [address] Nov, [facility] [place] [facility] [address] [id number] [place] [address] Nov, [facility] [place] [facility] [address] [id number] [place] [address] Oct, [facility] [place] [facility] [address] [id number] [place] [address] 07 Sep, 2012 [facility] [address] [id number] [place] [address] August, [facility] [address] [id number] [place] [address] 30 Jul, 2012 [facility] [address] [id number] [place] [address] 14 Jul, 2012 [facility] [address] [id number] [place] [address] 10 Jul, 2012 [facility] [address] [id number] [place] [address] Jul, [facility] [address] [id number] [place] [address] Jul, [facility] [address] [id number] [place] [address] Jun, [facility] [address] [id number] [place] [address] May, [facility] [address] [id number] [place] [address] Apr, [facility] [address] [id number] [place] [address] Mar, [facility] [address] [id number] [place] [address] Mar, [facility] [address] [id number] [place] [address] Mar, [facility] [address] [id number] [place] [address] Jan, [facility] [address] [id number] [place] [address] Jan, [facility] [address] [id number] [place] [address] Jan, [facility] [place] [facility] [address] [id number] [place] [address] Jan, [facility] [place] [facility] [address] [id number] [place] [address] Dec, [facility] [place] [facility] [address] [id number] [place] [address] Dec, [facility] [place] [facility] [address] [id number] [place] [address] Nov, [facility] [place] [facility] [address] [id number] [place] [address] Nov, [facility] [place] [facility] [address] [id number] [place] [address] Nov, [facility] [place] [facility] [address] [id number] [place] [address] Nov, [facility] [place] [facility] [address] [id number] [place] [address] Nov, [facility] [place] [facility] [address] [id number] [place] [address] Oct, [facility] [place] [facility] [address] [id number] [place] [address] Oct, [facility] [place] [facility] [address] [id number] [place] [address] Oct, [facility] [place] [facility] [address] [id number] [address] Sep, [facility] [place] [facility] [address] [id number] [place] [address] August, [facility] [place] [facility] [address] [id number] [place] [address] Jul, [facility] [place] [facility] [address] [id number] [place] [address] Jul, [facility] [place] [facility] [address] [id number] [place] [address] 09 Jul, 2011 [facility] [address] [id number] [place] [address] 05 Jul, 2011 [facility] [place] [facility] [address] [id number] [place] [address] 29 Jun, 2011 [facility] [place] [facility] [address] [id number] [place] [address] 28 Jun, 2011 [facility] [place] [facility] [address] [id number] [place] [address] 23 Jun, 2011 [facility] [place] [facility] [address] [id number] [place] [address] 21 Jun, 2011 [facility] [place] [facility] [address] [id number] [place] [address] 15 Jun, 2011 [facility] [facility] [address] [id number] [place] [address] 28 May, 2011 [facility] [place] [facility] [address] [id number] [place] [address] 28 May, 2011 [facility] [place] [facility] [address] [id number] [place] [address] 27 May, 2011 [facility] [place] [facility] [address] [id number] [place] [address] 24 May, 2011 [facility] [place] [facility] [address] [id number] [place] [address] Apr, [facility] [place] [facility] [address] [id number] [place] [address] Mar, [facility] [place] [facility] [address] [id number] [place] [address] Mar, [facility] [place] [facility] [address] [id number] [place] [address] 17 Jun, 2010 [facility] [place] [facility] [address] [id number] [place] [address] Feb, [facility] [id number] [address] Jan, [facility] [id number] [address] Jan, [facility] [id number] [address] Jan, [facility] [id number] [place] [address] Dec, [facility] [id number] [address] May, [facility] [id number] [address] Feb, [facility] [id number] [place] [address] Feb, [facility] [id number] [place] [address] Feb, IMMUNIZATIONS No Known Immunizations SOCIAL HISTORY [...]
--- OUTSIDE RECORDS SUMMARY | 2018-11-21 22:04 | XMS REPORT ---
Author Author LYNN SOTO Organization [facility] Address [address] [place] [address] Care Team Providers Care Edge Beader Name Role Phone LYNN SOTO Unavailable PROBLEMS Type Condition ICD9-CM Code HLC39-AZ Code Onset Dates Condition Status SNOMED Code Problem Generalized anxiety disorder F41.1 Active 24394161 Problem Hypercholesterolemia E78.00 Active 64717537 Problem Body mass index (BMI) of 32.0-32.9 in adult Z68.32 Active 208790246 Problem Chronic obstructive pulmonary disease, unspecified COPD type J44.9 Active 22312967 Problem Insomnia G47.00 Active 262893942 Problem Other depression F32.89 Active 323297221 Problem Facet arthropathy, lumbar M46.96 Active 215052463 Problem Lumbar spondylosis M47.816 Active 842475917 Problem Lumbago with sciatica, unspecified side M54.40 Active 82410950 Problem Other obesity due to excess calories E66.09 Active 185261147 Problem COPD exacerbation J44.1 Active 055861764 Problem Other chronic pain G89.29 Active 90733967 Problem Restless legs G25.81 Active 06909887 Problem Constipation due to outlet dysfunction K59.02 Active 14176574 Problem COPD (chronic obstructive pulmonary disease) J44.9 Active 01069063 Problem Depression F32.9 Active 45770787 Problem Anxiety F41.9 Active 25056387 Problem Gastroesophageal reflux disease with esophagitis K21.0 Active 404852849 Problem Essential hypertension I10 Active 09349971 Problem Severe episode of recurrent major depressive disorder, without psychotic features F33.2 Active 33541997 Problem Major depressive disorder, recurrent episode, moderate with anxious distress F33.1 Active 209827673 Problem Psychophysiological insomnia F51.04 Active [id number] ALLERGIES No Information ENCOUNTERS Encounter Location Date Diagnosis [facility] [address] [facility] [id number] [address] Nov, [place] [address] [id number] [place] [address] Oct, [place] [address] [address] Sep, Pain aggravated by standing R52 [place] [address] [address] Sep, Other depression F32.89 [place] [address] [address] Sep, Chronic obstructive pulmonary disease, unspecified COPD type J44.9 ; Pain aggravated by standing R52 ; Other depression F32.89 ; Major depressive disorder, recurrent episode, moderate with anxious distress F33.1 ; Restless legs G25.81 ; Insomnia G47.00 ; Gastroesophageal reflux disease with esophagitis K21.0 ; Essential hypertension I10 ; Generalized anxiety disorder F41.1 and Hypercholesterolemia E78.00 [place] [address] [address] Jul, Fever, unspecified fever cause R50.9 and Cough R[address] [address] Jul, [place] [address] [address] Jul, Gastroesophageal reflux disease with esophagitis K21.0 [place] [address] [id number] [place] [address] Jul, [place] [address] [address] Jun, COPD (chronic obstructive pulmonary disease) J44.9 ; Restless legs G25.81 ; Insomnia G47.00 ; Essential hypertension I10 ; Major depressive disorder, recurrent episode, moderate with anxious distress F33.1 ; Gastroesophageal reflux disease with esophagitis K21.0 ; Constipation due to outlet dysfunction K59.02 ; Hypercholesterolemia E78.00 ; Other chronic pain G89.29 and Generalized abdominal pain R10.84 [place] [address] [address] Jun, [place] [address] [id number] [place] [address] Jun, Acute recurrent sinusitis, unspecified location J01.91 and COPD exacerbation J44.1 [place] [address] [id number] [place] [address] Jun, Lumbago with sciatica, unspecified side M54.40 [place] [address] [id number] [place] [address] May, [place] [address] [id number] [place] [address] May, Severe episode of recurrent major depressive disorder, without psychotic features F33.2 [place] [address] [id number] [place] [address] Apr, COPD (chronic obstructive pulmonary disease) J44.9 [...] index (BMI) of 32.0-32.9 in adult Z68.32 [place] [address] [place] [address] Apr, Severe episode of recurrent major depressive disorder, without psychotic features F33.2 [place] [address] [id number] [place] [address] Feb, Severe episode of recurrent major depressive disorder, without psychotic features F33.2 and Restless legs G25.81 [place] [address] [place] [address] Feb, Severe episode of recurrent major depressive disorder, without psychotic features F33.2 ; Generalized anxiety disorder F41.1 and Psychophysiological insomnia F51.04 [place] [address] [id number] [place] [address] Dec, Severe episode of recurrent major depressive disorder, without psychotic features F33.2 ; Generalized anxiety disorder F41.1 and Psychophysiological insomnia F51.04 [facility] [address] [id number] [place] [address] Nov, Severe episode of recurrent major depressive disorder, without psychotic features F33.2 ; Generalized anxiety disorder F41.1 and Psychophysiological insomnia F51.04 [place] [address] [address] Nov, [place] [address] [address] Nov, Depression F32.9 [place] [address] [address] Nov, Depression F32.9 ; Insomnia G47.00 and Anxiety F41.9 [place] [address] [address] August, COPD (chronic obstructive pulmonary disease) J44.9 ; Depression F32.9 ; Anxiety F41.9 ; Major depressive disorder, recurrent episode, moderate with anxious distress F33.1 ; Insomnia G47.00 ; Restless legs G25.81 ; Essential hypertension I10 and Pure hypercholesterolemia E78.00 [place] [address] [id number] [place] [address] August, Acute intractable tension-type headache G44.201 [facility] [id number] [place] [address] Jul, Left wrist pain M25.532 and Strain of left wrist, initial encounter S66.912A [facility] [address] [address] May, Gastroesophageal reflux disease with esophagitis K21.0 and Anxiety F41.9 [place] [address] [place] [address] 13 May, 2016 Major depressive disorder, recurrent episode, moderate with anxious distress F33.1 ; COPD (chronic obstructive pulmonary disease) J44.9 ; Restless legs G25.81 ; Insomnia G47.00 ; Essential hypertension I10 ; Anxiety F41.9 ; Constipation due to outlet dysfunction K59.02 ; Torsion of intestine, bowel or colon K56.2 ; Hypercholesterolemia E78.00 and Gastroesophageal reflux disease with esophagitis K21.0 [place] [address] [id number] [place] [address] 07 Feb, 2016 [place] [address] [id number] [place] [address] 20 Dec, 2015 Essential hypertension I10 ; Depression F32.9 ; Anxiety F41.9 ; Constipation due to outlet dysfunction K59.02 ; Torsion of intestine, bowel or colon K56.2 ; COPD (chronic obstructive pulmonary disease) J44.9 ; Insomnia G47.00 ; Restless legs G25.81 and Gastroesophageal reflux disease with esophagitis K21.0 [place] [address] [id number] [place] [address] 08 Dec, 2015 Essential hypertension I10 ; Major depressive disorder, recurrent episode, moderate with anxious distress F33.1 ; COPD (chronic obstructive pulmonary disease) J44.9 ; Restless legs G25.81 ; Insomnia G47.00 ; Constipation due to outlet dysfunction K59.02 and Gastroesophageal reflux disease without esophagitis K21.9 [place] [address] [place] [address] 07 Dec, 2015 Major depressive disorder, recurrent episode, moderate with anxious distress F33.1 [place] [address] [id number] [place] [address] Sep, [place] [address] [id number] [place] [address] Sep, Nausea R11.0 [place] [address] [id number] [place] [address] Sep, Lower abdominal pain R10.30 ; COPD (chronic obstructive pulmonary disease) J44.9 ; Restless legs G25.81 ; Essential hypertension I10 ; Depression F32.9 ; Other chronic pain G89.29 ; Lumbago with sciatica, unspecified side M54.40 and Primary insomnia F51.01 [place] [address] [id number] [place] [address] August, [place] [address] [address] August, COPD (chronic obstructive pulmonary disease) J44.9 ; Insomnia G47.00 ; Depression F32.9 and Constipation due to outlet dysfunction K59.02 [place] [address] [id number] [place] [address] August, [place] [address] [address] August, [place] [address] [id number] [place] [address] August, Nausea & vomiting R11.2 [place] [address] [place] [id number] [place] [address] Jun, [place] [address] [place] [id number] [place] [address] Jun, Unspecified abdominal pain R10.9 ; Depression, major, recurrent, moderate 296.32 ; COPD (chronic obstructive pulmonary disease) J44.9 ; Restless legs G25.81 ; Insomnia G47.00 ; Intestinal abscess K63.0 ; HTN (hypertension) I10 and Hypercholesteremia E78.0 [place] [address] [id number] [place] [address] Jun, Intestinal abscess K63.0 [place] [address] [place] [id number] [place] [address] May, [place] [address] [address] May, [place] [address] [place] [id number] [place] [address] May, Unspecified abdominal pain R10.9 [place] [address] [place] [id number] [place] [address] 08 May, 2015 Depression, major, recurrent, moderate 296.32 ; COPD (chronic obstructive pulmonary disease) J44.9 ; Restless legs G25.81 ; Insomnia G47.00 ; Depression F32.9 ; HTN (hypertension) I10 and Hypercholesterolemia E78.0 [place] [address] [id number] [place] [address] Apr, [place] [address] [place] [id number] [place] [address] Mar, Cellulitis L03.[address] [address] Feb, Recurrent major depression-severe F33.2 [place] [address] [place] [id number] [place] [address] Feb, Hyperlipemia E78.5 and High blood pressure I10 [place] [address] [place] [id number] [place] [address] Feb, COPD (chronic obstructive pulmonary disease) J44.9 ; Restless legs G25.81 ; Insomnia G47.00 ; Depression F32.9 and HTN (hypertension) I10 [place] [address] [place] [id number] [place] [address] Jan, [place] [address] [place] [id number] [place] [address] Jan, Generalized anxiety disorder F41.1 and Recurrent major depression- severe F33.2 [place] [address] [place] [id number] [place] [address] Jan, Bronchitis J40 [place] [address] [place] [address] Jan, Shoulder pain, right M25.511 and Low back pain M54.5 [facility] [address] [id number] [place] [address] Jan, [facility] [id number] [place] [address] Oct, [facility] [address] [id number] [place] [address] Oct, Generalized anxiety disorder 300.02 and Depression, major, severe recurrence 296.33 [facility] [address] [id number] [place] [address] Oct, [facility] [address] [address] [id number] [place] [address] Oct, Depression, major, recurrent, moderate 296.32 [facility] [address] [id number] [place] [address] August, [facility] [address] [id number] [place] [address] Jul, [facility] [address] [address] [id number] [place] [address] Jul, [facility] [address] [address] Jun, [facility] [address] [id number] [place] [address] Jun, [facility] [address] [place] [address] May, [facility] [address] [id number] [place] [address] May, [facility] [address] [address] May, [facility] [address] [id number] [place] [address] May, 2014 [facility] [place] [facility] [address] [id number] [place] [address] May, 2014 [facility] [place] [facility] [address] [id number] [place] [address] May, 2014 [facility] [place] [facility] [address] [id number] [place] [address] May, 2014 [facility] [place] [facility] [address] [id number] [place] [address] May, 2014 [facility] [place] [facility] [address] [id number] [place] [address] May, 2014 [facility] [place] [facility] [address] [id number] [place] [address] May, 2014 [facility] [place] [facility] [address] [facility] [id number] [place] [address] May, 2014 [facility] [place] [facility] [address] [facility] [id number] [place] [address] May, [facility] [place] [facility] [address] [facility] [id number] [place] [address] Apr, [facility] [place] [facility] [address] [facility] [id number] [place] [address] Apr, [facility] [place] [facility] [address] [id number] [place] [address] Apr, [facility] [place] [facility] [address] [id number] [place] [address] Apr, [facility] [place] [facility] [address] [id number] [place] [address] Apr, [facility] [place] [facility] [address] [facility] [id number] [place] [address] Apr, [facility] [place] [facility] [address] [facility] [id number] [place] [address] Apr, [facility] [place] [facility] [address] [id number] [place] [address] Apr, [facility] [place] [facility] [address] [id number] [place] [address] Apr, [facility] [place] [facility] [address] [id number] [place] [address] Apr, [facility] [place] [facility] [address] [id number] [place] [address] Mar, [facility] [place] [facility] [address] [id number] [place] [address] Mar, [facility] [place] [facility] [address] [id number] [place] [address] Mar, [facility] [place] [facility] [address] [id number] [place] [address] Mar, [facility] [place] [facility] [address] [id number] [place] [address] Mar, [facility] [place] [facility] [address] [id number] [place] [address] Feb, [facility] [place] [facility] [address] [id number] [place] [address] Feb, [facility] [place] [facility] [address] [id number] [place] [address] Dec, [facility] [place] [facility] [address] [id number] [place] [address] Dec, [facility] [place] [facility] [address] [id number] [place] [address] Nov, [facility] [place] [facility] [address] [id number] [place] [address] Nov, [facility] [place] [facility] [address] [id number] [place] [address] Nov, [facility] [place] [facility] [address] [id number], [place] [address] Nov, [facility] [place] [facility] [address] [id number] [place] [address] Oct, [facility] [place] [facility] [address] [id number] [place] [address] Oct, [facility] [place] [facility] [address] [id number] [place] [address] Sep, [facility] [place] [facility] [address] [id number] [place] [address] Sep, [facility] [place] [facility] [address] [id number] [place] [address] August, [facility] [place] [facility] [address] [id number] [place] [address] August, [facility] [place] [facility] [address] [id number] [place] [address] August, [facility] [place] [facility] [address] [id number] [place] [address] August, [facility] [place] [facility] [address] [id number] [place] [address] Jul, [facility] [place] [facility] [address] [id number] [place] [address] Jul, [facility] [place] [facility] [address] [id number] [place] [address] Jun, [facility] [place] [facility] [address] [id number] [place] [address] Jun, [facility] [place] [facility] [address] [id number] [place] [address] May, [facility] [place] [facility] [address] [id number] [place] [address] May, [facility] [place] [facility] [address] [id number] [place] [address] May, [facility] [place] [facility] [address] [id number] [place] [address] May, [facility] [place] [facility] [address] [id number] [place] [address] May, [facility] [place] [facility] [address] [id number] [place] [address] May, [facility] [place] [facility] [address] [id number] [place] [address] May, [facility] [place] [facility] [address] [id number] [place] [address] Apr, [facility] [place] [facility] [address] [id number] [place] [address] Apr, [facility] [place] [facility] [address] [id number] [place] [address] Apr, [facility] [place] [facility] [address] [id number] [place] [address] Apr, [facility] [place] [facility] [address] [id number] [place] [address] Apr, [facility] [place] [facility] [address] [id number] [place] [address] Apr, [facility] [place] [facility] [address] [id number] [place] [address] Apr, [facility] [place] [facility] [address] [id number] [place] [address] Apr, [facility] [place] [facility] [address] [id number] [place] [address] Apr, [facility] [place] [facility] [address] [id number] [place] [address] Apr, [facility] [place] [facility] [address] [id number] [place] [address] Mar, [facility] [place] [facility] [address] [id number] [address] Mar, [facility] [place] [facility] [address] [id number] [place] [address] Mar, [facility] [place] [facility] [address] [id number] [place] [address] Mar, [facility] [place] [facility] [address] [id number] [place] [address] Feb, [facility] [place] [facility] [address] [id number] [place] [address] Feb, [facility] [place] [facility] [address] [id number] [place] [address] Feb, [facility] [place] [facility] [address] [id number] [place] [address] Feb, [facility] [place] [facility] [address] [id number] [place] [address] Feb, [facility] [place] [facility] [address] [id number] [place] [address] Feb, [facility] [place] [facility] [address] [id number] [place] [address] Jan, [facility] [place] [facility] [address] [id number] [place] [address] Jan, [facility] [place] [facility] [address] [id number], [place] [address] Dec, [facility] [place] [facility] [address] [id number], [place] [address] Dec, [facility] [place] [facility] [address] [id number] [place] [address] Nov, [facility] [place] [facility] [address] [id number] [place] [address] Nov, [facility] [place] [facility] [address] [id number] [place] [address] Oct, [facility] [place] [facility] [address] [id number] [place] [address] 07 Sep, 2012 [facility] [address] [id number] [place] [address] August, [facility] [address] [id number] [place] [address] 30 Jul, 2012 [facility] [address] [id number] [place] [address] 14 Jul, 2012 [facility] [address] [id number] [place] [address] 10 Jul, 2012 [facility] [address] [id number] [place] [address] Jul, [facility] [address] [id number] [place] [address] Jul, [facility] [address] [id number] [place] [address] Jun, [facility] [address] [id number] [place] [address] May, [facility] [address] [id number] [place] [address] Apr, [facility] [address] [id number] [place] [address] Mar, [facility] [address] [id number] [place] [address] Mar, [facility] [address] [id number] [place] [address] Mar, [facility] [address] [id number] [place] [address] Jan, [facility] [address] [id number] [place] [address] Jan, [facility] [address] [id number] [place] [address] Jan, [facility] [place] [facility] [address] [id number] [place] [address] Jan, [facility] [place] [facility] [address] [id number] [place] [address] Dec, [facility] [place] [facility] [address] [id number] [place] [address] Dec, [facility] [place] [facility] [address] [id number] [place] [address] Nov, [facility] [place] [facility] [address] [id number] [place] [address] Nov, [facility] [place] [facility] [address] [id number] [place] [address] Nov, [facility] [place] [facility] [address] [id number] [place] [address] Nov, [facility] [place] [facility] [address] [id number] [place] [address] Nov, [facility] [place] [facility] [address] [id number] [place] [address] Oct, [facility] [place] [facility] [address] [id number] [place] [address] Oct, [facility] [place] [facility] [address] [id number] [place] [address] Oct, [facility] [place] [facility] [address] [id number] [address] Sep, [facility] [place] [facility] [address] [id number] [place] [address] August, [facility] [place] [facility] [address] [id number] [place] [address] Jul, [facility] [place] [facility] [address] [id number] [place] [address] Jul, [facility] [place] [facility] [address] [id number] [place] [address] 09 Jul, 2011 [facility] [address] [id number] [place] [address] 05 Jul, 2011 [facility] [place] [facility] [address] [id number] [place] [address] 29 Jun, 2011 [facility] [place] [facility] [address] [id number] [place] [address] 28 Jun, 2011 [facility] [place] [facility] [address] [id number] [place] [address] 23 Jun, 2011 [facility] [place] [facility] [address] [id number] [place] [address] 21 Jun, 2011 [facility] [place] [facility] [address] [id number] [place] [address] 15 Jun, 2011 [facility] [address] [id number] [place] [address] 28 May, 2011 [facility] [place] [facility] [address] [id number] [place] [address] 28 May, 2011 [facility] [place] [facility] [address] [id number] [place] [address] 27 May, 2011 [facility] [place] [facility] [address] [id number] [place] [address] 24 May, 2011 [facility] [place] [facility] [address] [id number] [place] [address] Apr, [facility] [place] [facility] [address] [id number] [place] [address] Mar, [facility] [place] [facility] [address] [id number] [place] [address] Mar, [facility] [place] [facility] [address] [id number] [place] [address] 17 Jun, 2010 [facility] [place] [facility] [address] [id number] [place] [address] Feb, [facility] [address] [id number] [address] Jan, [facility] [id number] [address] Jan, [facility] [id number] [address] Jan, [facility] [id number] [place] [id number] Dec, [facility] [id number] [address] May, [facility] [id number] [address] Feb, [facility] [id number] [address] Feb, [facility] [id number] [address] Feb, IMMUNIZATIONS No Known Immunizations SOCIAL HISTORY [...]
--- OUTSIDE RECORDS SUMMARY | 2018-11-21 22:05 | XMS REPORT ---
Author Author LOVELACE TUSHAR Organization [facility] Address [address] [place] [address] Care Team Providers Care Air Crew Supervisor Name Role Phone LOVELACETUSHAR Ryder Unavailable PROBLEMS Type Condition ICD9-CM Code NJB64-HZ Code Onset Dates Condition Status SNOMED Code Problem Generalized anxiety disorder F41.1 Active 90915243 Problem Hypercholesterolemia E78.00 Active 89555287 Problem Body mass index (BMI) of 32.0-32.9 in adult Z68.32 Active 699325382 Problem Chronic obstructive pulmonary disease, unspecified COPD type J44.9 Active 91308189 Problem Insomnia G47.00 Active 200322975 Problem Other depression F32.89 Active 545003705 Problem Facet arthropathy, lumbar M46.96 Active 592384717 Problem Lumbar spondylosis M47.816 Active 178883554 Problem Lumbago with sciatica, unspecified side M54.40 Active 98245997 Problem Other obesity due to excess calories E66.09 Active 389718944 Problem COPD exacerbation J44.1 Active 511704992 Problem Other chronic pain G89.29 Active 86549390 Problem Restless legs G25.81 Active 52121959 Problem Constipation due to outlet dysfunction K59.02 Active 84239578 Problem COPD (chronic obstructive pulmonary disease) J44.9 Active 61311545 Problem Depression F32.9 Active 99131272 Problem Anxiety F41.9 Active 80648419 Problem Gastroesophageal reflux disease with esophagitis K21.0 Active 900835439 Problem Essential hypertension I10 Active 81648093 Problem Severe episode of recurrent major depressive disorder, without psychotic features F33.2 Active 42214098 Problem Major depressive disorder, recurrent episode, moderate with anxious distress F33.1 Active 272235584 Problem Psychophysiological insomnia F51.04 Active [id number] ALLERGIES No Known Allergies ENCOUNTERS Encounter Location Date Diagnosis [facility] [address] [facility] [id number] [address] Nov, [place] [address] [place] [id number] [place] [address] Oct, [place] [address] [address] Sep, Pain aggravated by standing R52 [place] [address] [address] Sep, Other depression F32.89 [place] [address] [address] Sep, Chronic obstructive pulmonary disease, unspecified COPD type J44.9 ; Pain aggravated by standing R52 ; Other depression F32.89 ; Major depressive disorder, recurrent episode, moderate with anxious distress F33.1 ; Restless legs G25.81 ; Insomnia G47.00 ; Gastroesophageal reflux disease with esophagitis K21.0 ; Essential hypertension I10 ; Generalized anxiety disorder F41.1 and Hypercholesterolemia E78.00 [place] [address] [place] [id number] [place] [address] Jul, Fever, unspecified fever cause R50.9 and Cough R05 [address] [address] Jul, [place] [address] [address] Jul, Gastroesophageal reflux disease with esophagitis K21.0 [place] [address] [place] [id number] [place] [address] Jul, [place] [address] [place] [id number] [place] [address] Jun, COPD (chronic obstructive pulmonary disease) J44.9 ; Restless legs G25.81 ; Insomnia G47.00 ; Essential hypertension I10 ; Major depressive disorder, recurrent episode, moderate with anxious distress F33.1 ; Gastroesophageal reflux disease with esophagitis K21.0 ; Constipation due to outlet dysfunction K59.02 ; Hypercholesterolemia E78.00 ; Other chronic pain G89.29 and Generalized abdominal pain R10.84 [place] [address] [address] Jun, [place] [address] [place] [id number] [place] [address] Jun, Acute recurrent sinusitis, unspecified location J01.91 and COPD exacerbation J44.1 [place] [address] [place] [id number] [place] [address] Jun, Lumbago with sciatica, unspecified side M54.40 [place] [address] [place] [id number] [place] [address] May, [place] [address] [place] [id number] [place] [address] May, Severe episode of recurrent major depressive disorder, without psychotic features F33.2 [place] [id number] [place] [address] Apr, COPD (chronic obstructive pulmonary disease) J44.9 [...] of 32.0-32.9 in adult Z68.32 [place] [id number] [place] [address] Apr, Severe episode of recurrent major depressive disorder, without psychotic features F33.2 [place] [id number] [place] [address] Feb, Severe episode of recurrent major depressive disorder, without psychotic features F33.2 and Restless legs G25.81 [place] [address] [address] Feb, Severe episode of recurrent major depressive disorder, without psychotic features F33.2 ; Generalized anxiety disorder F41.1 and Psychophysiological insomnia F51.04 [place] [address] [place] [id number] [place] [address] Dec, Severe episode of recurrent major depressive disorder, without psychotic features F33.2 ; Generalized anxiety disorder F41.1 and Psychophysiological insomnia F51.04 [place] [address] [place] [id number] [place] [address] Nov, Severe episode of recurrent major depressive disorder, without psychotic features F33.2 ; Generalized anxiety disorder F41.1 and Psychophysiological insomnia F51.04 [place] [address] [address] Nov, [place] [address] [address] Nov, Depression F32.9 [place] [address] [address] Nov, Depression F32.9 ; Insomnia G47.00 and Anxiety F41.9 [place] [address] [place] [id number] [place] [address] August, COPD (chronic obstructive pulmonary disease) J44.9 ; Depression F32.9 ; Anxiety F41.9 ; Major depressive disorder, recurrent episode, moderate with anxious distress F33.1 ; Insomnia G47.00 ; Restless legs G25.81 ; Essential hypertension I10 and Pure hypercholesterolemia E78.00 [place] [address] [place] [id number] [place] [address] August, Acute intractable tension-type headache G44.201 [facility] [address] [address] Jul, Left wrist pain M25.532 and Strain of left wrist, initial encounter S66.912A [place] [address] [address] May, Gastroesophageal reflux disease with esophagitis K21.0 and Anxiety F41.9 [place] [id number] [place] [address] 13 May, 2016 Major depressive disorder, recurrent episode, moderate with anxious distress F33.1 ; COPD (chronic obstructive pulmonary disease) J44.9 ; Restless legs G25.81 ; Insomnia G47.00 ; Essential hypertension I10 ; Anxiety F41.9 ; Constipation due to outlet dysfunction K59.02 ; Torsion of intestine, bowel or colon K56.2 ; Hypercholesterolemia E78.00 and Gastroesophageal reflux disease with esophagitis K21.0 [place] [address] [place] [id number] [place] [address] 07 Feb, 2016 [place] [address] [place] [id number] [place] [address] 20 Dec, 2015 Essential hypertension I10 ; Depression F32.9 ; Anxiety F41.9 ; Constipation due to outlet dysfunction K59.02 ; Torsion of intestine, bowel or colon K56.2 ; COPD (chronic obstructive pulmonary disease) J44.9 ; Insomnia G47.00 ; Restless legs G25.81 and Gastroesophageal reflux disease with esophagitis K21.0 [place] [address] [place] [id number] [place] [address] 08 Dec, 2015 Essential hypertension I10 ; Major depressive disorder, recurrent episode, moderate with anxious distress F33.1 ; COPD (chronic obstructive pulmonary disease) J44.9 ; Restless legs G25.81 ; Insomnia G47.00 ; Constipation due to outlet dysfunction K59.02 and Gastroesophageal reflux disease without esophagitis K21.9 [place] [id number] [place] [address] 07 Dec, 2015 Major depressive disorder, recurrent episode, moderate with anxious distress F33.1 [place] [address] [place] [id number] [place] [address] Sep, [place] [address] [place] [id number] [place] [address] 23 Sep, 2015 Nausea R11.0 [place] [address] [place] [id number] [place] [address] Sep, Lower abdominal pain R10.30 ; COPD (chronic obstructive pulmonary disease) J44.9 ; Restless legs G25.81 ; Essential hypertension I10 ; Depression F32.9 ; Other chronic pain G89.29 ; Lumbago with sciatica, unspecified side M54.40 and Primary insomnia F51.01 [place] [address] [address] August, [place] [address] [address] August, COPD (chronic obstructive pulmonary disease) J44.9 ; Insomnia G47.00 ; Depression F32.9 and Constipation due to outlet dysfunction K59.02 [place] [address] [address] August, [place] [address] [address] August, [place] [address] [address] August, Nausea & vomiting R11.2 [place] [address] [address] Jun, [place] [address] [place] [id number] [place] [address] Jun, Unspecified abdominal pain R10.9 ; Depression, major, recurrent, moderate 296.32 ; COPD (chronic obstructive pulmonary disease) J44.9 ; Restless legs G25.81 ; Insomnia G47.00 ; Intestinal abscess K63.0 ; HTN (hypertension) I10 and Hypercholesteremia E78.0 [place] [address] [address] Jun, Intestinal abscess K63.0 [place] [address] [place] [id number] [place] [address] May, [place] [address] [place] [address] May, [place] [address] [place] [id number] [place] [address] May, Unspecified abdominal pain R10.9 [place] [address] [place] [id number] [place] [address] 08 May, 2015 Depression, major, recurrent, moderate 296.32 ; COPD (chronic obstructive pulmonary disease) J44.9 ; Restless legs G25.81 ; Insomnia G47.00 ; Depression F32.9 ; HTN (hypertension) I10 and Hypercholesterolemia E78.0 [place] [address] [address] Apr, [place] [address] [place] [id number] [place] [address] Mar, Cellulitis L03.90 [place] [address] [address] Feb, Recurrent major depression-severe F33.2 [place] [address] [place] [id number] [place] [address] Feb, Hyperlipemia E78.5 and High blood pressure I10 [place] [address] [place] [id number] [place] [address] Feb, COPD (chronic obstructive pulmonary disease) J44.9 ; Restless legs G25.81 ; Insomnia G47.00 ; Depression F32.9 and HTN (hypertension) I10 [place] [address] [place] [id number] [place] [address] Jan, [place] [address] [address] Jan, Generalized anxiety disorder F41.1 and Recurrent major depression- severe F33.2 [place] [address] [place] [id number] [place] [address] Jan, Bronchitis J40 [place] [address] [place] [id number] [place] [address] Jan, Shoulder pain, right M25.511 and Low back pain M54.5 [facility] [address] [place] [address] [id number] [place] [address] Jan, [facility] [id number] [place] [address] Oct, [facility] [address] [place] [id number] [place] [address] Oct, Generalized anxiety disorder 300.02 and Depression, major, severe recurrence 296.33 [facility] [address] [place] [id number] [place] [address] Oct, [facility] [address] [place] [id number] [place] [address] Oct, Depression, major, recurrent, moderate 296.32 [facility] [address] [place] [id number] [place] [address] August, [facility] [address] [id number] [place] [address] Jul, [facility] [address] [place] [id number] [place] [address] Jul, [facility] [address] [id number] [address] Jun, [facility] [address] [place] [id number] [place] [address] Jun, [facility] [address] [place] [address] May, [facility] [address] [place] [id number] [place] [address] May, [facility] [address] [address] May, [facility] [address] [place] [id number] [place] [address] May, 2014 [facility] [place] [facility] [address] [id number] [place] [address] May, 2014 [facility] [place] [facility] [address] [id number] [place] [address] May, 2014 [facility] [place] [facility] [address] [id number] [place] [address] May, 2014 [facility] [place] [facility] [address] [id number] [place] [address] May, 2014 [facility] [place] [facility] [address] [id number] [place] [address] May, 2014 [facility] [place] [facility] [address] [facility] [id number] [place] [address] May, 2014 [facility] [place] [facility] [address] [facility] [id number] [place] [address] May, 2014 [facility] [place] [facility] [address] [id number] [place] [address] May, [facility] [place] [facility] [address] [id number] [place] [address] Apr, [facility] [place] [facility] [address] [facility] [id number] [place] [address] Apr, [facility] [place] [facility] [address] [facility] [id number] [place] [address] Apr, [facility] [place] [facility] [address] [id number], [place] [address] Apr, [facility] [place] [facility] [address] [facility] [id number] [place] [address] Apr, [facility] [place] [facility] [address] [facility] [id number] [place] [address] Apr, [facility] [place] [facility] [address] [facility] [id number] [place] [address] Apr, [facility] [place] [facility] [address] [id number] [place] [address] Apr, [facility] [place] [facility] [address] [id number] [place] [address] Apr, [facility] [place] [facility] [address] [id number] [place] [address] Apr, [facility] [place] [facility] [address] [id number] [place] [address] Mar, [facility] [place] [facility] [address] [id number] [place] [address] Mar, [facility] [place] [facility] [address] [id number] [place] [address] Mar, [facility] [place] [facility] [address] [id number] [place] [address] Mar, [facility] [place] [facility] [address] [id number] [place] [address] Mar, [facility] [place] [facility] [address] [id number] [place] [address] Feb, [facility] [place] [facility] [address] [id number] [place] [address] Feb, [facility] [place] [facility] [address] [id number] [place] [address] Dec, [facility] [place] [facility] [address] [id number] [place] [address] Dec, [facility] [place] [facility] [address] [id number] [place] [address] Nov, [facility] [place] [facility] [address] [id number] [place] [address] Nov, [facility] [place] [facility] [address] [id number] [place] [address] Nov, [facility] [place] [facility] [address] [id number] [place] [address] Nov, [facility] [place] [facility] [address] [id number] [place] [address] Oct, [facility] [place] [facility] [address] [id number] [place] [address] Oct, [facility] [place] [facility] [address] [id number] [place] [address] Sep, [facility] [place] [facility] [address] [id number] [place] [address] Sep, [facility] [place] [facility] [address] [id number] [place] [address] August, [facility] [place] [facility] [address] [id number] [place] [address] August, [facility] [place] [facility] [address] [id number] [place] [address] August, [facility] [place] [facility] [address] [id number] [place] [address] August, [facility] [place] [facility] [address] [id number] [place] [address] Jul, [facility] [place] [facility] [address] [id number] [place] [address] Jul, [facility] [place] [facility] [address] [id number] [place] [address] Jun, [facility] [place] [facility] [address] [id number] [place] [address] Jun, [facility] [place] [facility] [address] [id number] [place] [address] May, [facility] [place] [facility] [address] [id number] [place] [address] May, [facility] [place] [facility] [address] [id number] [place] [address] May, [facility] [place] [facility] [address] [id number] [place] [address] May, [facility] [place] [facility] [address] [id number] [place] [address] May, [facility] [place] [facility] [address] [id number] [place] [address] May, [facility] [place] [facility] [address] [id number] [place] [address] May, [facility] [place] [facility] [address] [id number] [place] [address] Apr, [facility] [place] [facility] [address] [id number] [place] [address] Apr, [facility] [place] [facility] [address] [id number] [place] [address] Apr, [facility] [place] [facility] [address] [id number] [place] [address] Apr, [facility] [place] [facility] [address] [id number] [place] [address] Apr, [facility] [place] [facility] [address] [id number] [place] [address] Apr, [facility] [place] [facility] [address] [id number] [place] [address] Apr, [facility] [place] [facility] [address] [id number], [place] [address] Apr, [facility] [place] [facility] [address] [id number] [place] [address] Apr, [facility] [place] [facility] [address] [id number] [place] [address] Apr, [facility] [place] [facility] [address] [id number] [place] [address] Mar, [facility] [place] [facility] [address] [id number], [place] [address] Mar, [facility] [place] [facility] [address] [id number] [place] [address] Mar, [facility] [place] [facility] [address] [id number] [place] [address] Mar, [facility] [place] [facility] [address] [facility] [id number] [place] [address] Feb, [facility] [place] [facility] [address] [id number] [place] [address] Feb, [facility] [place] [facility] [address] [id number] [place] [address] Feb, [facility] [place] [facility] [address] [id number] [place] [address] Feb, [facility] [place] [facility] [address] [facility] [id number], [place] [address] Feb, [facility] [place] [facility] [address] [id number] [place] [address] Feb, [facility] [place] [facility] [address] [facility] [id number] [place] [address] Jan, [facility] [place] [facility] [address] [facility] [id number] [place] [address] Jan, [facility] [place] [facility] [address] [id number], [place] [address] 05 Dec, 2012 [facility] [place] [facility] [address] [id number], [place] [address] Dec, [facility] [place] [facility] [address] [id number], [place] [address] Nov, [facility] [place] [facility] [address] [facility] [id number], [place] [address] Nov, [facility] [place] [facility] [address] [facility] [id number], [place] [address] Oct, [facility] [place] [facility] [address] [id number] [place] [address] 07 Sep, 2012 [facility] [place] [facility] [address] [id number] [place] [address] August, [facility] [place] [facility] [address] [id number] [place] [address] 30 Jul, 2012 [facility] [place] [facility] [address] [id number] [place] [address] 14 Jul, 2012 [facility] [place] [facility] [address] [id number] [place] [address] Jul, [facility] [place] [facility] [address] [id number] [place] [address] Jul, [facility] [place] [facility] [address] [id number] [place] [address] Jul, [facility] [place] [facility] [address] [id number] [place] [address] Jun, [facility] [place] [facility] [address] [id number] [place] [address] May, [facility] [place] [facility] [address] [id number] [place] [address] Apr, [facility] [place] [facility] [address] [id number] [place] [address] Mar, [facility] [place] [facility] [address] [id number] [place] [address] Mar, [facility] [place] [facility] [address] [id number] [place] [address] Mar, [facility] [place] [facility] [address] [id number] [place] [address] Jan, [facility] [place] [facility] [address] [id number] [place] [address] Jan, [facility] [place] [facility] [address] [id number] [place] [address] Jan, [facility] [place] [facility] [address] [id number] [place] [address] Jan, [facility] [place] [facility] [address] [id number] [place] [address] Dec, [facility] [place] [facility] [address] [id number] [place] [address] Dec, [facility] [place] [facility] [address] [id number] [place] [address] Nov, [facility] [place] [facility] [address] [id number] [place] [address] Nov, [facility] [place] [facility] [address] [id number] [place] [address] Nov, [facility] [place] [facility] [address] [id number] [place] [address] Nov, [facility] [place] [facility] [address] [id number] [place] [address] Nov, [facility] [place] [facility] [address] [id number] [place] [address] Oct, [facility] [place] [facility] [address] [id number] [place] [address] Oct, [facility] [place] [facility] [address] [id number], [place] [address] Oct, [facility] [place] [facility] [address] [id number], [place] [address] Sep, [facility] [place] [facility] [address] [id number] [place] [address] August, [facility] [place] [facility] [address] [id number] [place] [address] Jul, [facility] [place] [facility] [address] [id number] [place] [address] Jul, [facility] [place] [facility] [address] [id number] [place] [address] 09 Jul, 2011 [facility] [address] [id number] [place] [address] 05 Jul, 2011 [facility] [place] [facility] [address] [id number] [place] [address] 29 Jun, 2011 [facility] [address] [id number] [place] [address] 28 Jun, 2011 [facility] [place] [facility] [address] [id number] [place] [address] 23 Jun, 2011 [facility] [address] [id number] [place] [address] 21 Jun, 2011 [facility] [place] [facility] [address] [id number] [place] [address] 15 Jun, 2011 [facility] [address] [id number] [place] [address] 28 May, 2011 [facility] [address] [id number] [place] [address] 28 May, 2011 [facility] [id number] [place] [address] May, [facility] [address] [facility] [id number] [place] [address] 24 May, 2011 [facility] [address] [id number] [place] [address] Apr, [facility] [address] [id number] [place] [address] Mar, [facility] [place] [facility] [address] [id number] [place] [address] Mar, [facility] [place] [facility] [address] [id number] [place] [address] 17 Jun, 2010 [facility] [place] [facility] [address] [facility] [id number] [place] [address] Feb, [facility] [address] [id number] [address] Jan, [facility] [id number] [address] Jan, [facility] [id number] [address] Jan, [facility] [id number] [address] Dec, [facility] [address] [id number] [address] May, [facility] [id number] [place] [address] Feb, [facility] [id number] [address] Feb, [facility] [id number], [place] [address] Feb, IMMUNIZATIONS No Known Immunizations SOCIAL HISTORY Never Assessed REASON FOR VISIT COPD, MAGALYS Hernandez, C/O of vomiting through the night for several weeks and josselin vargas, Requesting omeprazole. PLAN OF CARE Activity Details Follow Up 3 Months, prn Reason:chm/copd VITAL SIGNS Height 62 in 2017-07-16 Weight 178 lbs 2017-07-16 Temperature 98 degrees Fahrenheit 2017-07-16 Heart Rate 110 bpm 2017-07-16 Respiratory Rate 22 2017-07-16 Oximetry 94 % 2017-07-16 BMI 32.55 kg/m2 2017-07-16 Blood pressure systolic 140 mmHg 2017-07-16 Blood pressure diastolic 98 mmHg 2017-07-16 MEDICATIONS Medication Instructions Dosage Frequency Start Date End Date Duration Status Melatonin 3 MG Orally Once a day 1 tablet at bedtime as needed with food 24h Active Klonopin 0.5 MG Orally Twice a day as needed 1 tablet Nov, 30 days Active Losartan Potassium 100 MG Orally Once a day 1 tablet 24h Dec, Active Remeron 30 MG Orally Once a day at bedtime 1 tablet Feb, Active MiraLax 17 gm/dose Orally Once a day prn 1 packet mixed with 8 ounces of fluid 13 May, 2016 Apr, 12 months Active Dulera 100-5 mcg/actuation 2 puffs by Inhalation route 2 times per day 12h 30 Jul, 2012 Active Atorvastatin Calcium 10 mg Orally Once a day 1 tablet 24h May, Active Gabapentin 300 MG Orally Three times a day 1 capsule 8h May, Active Augmentin ES-600 600-42.9 MG/5ML Orally 2 times a day take 1 tabet 12h Jun, Jun, 10 days Active Omeprazole 20 mg Orally twice a day 1 capsule 12h Active Albuterol Sulfate 2.5 mg /3 mL (0.083 %) Inhalation every 4-6 hours as needed 1 Each by Inhalation route every 4 hours for cough and wheeze PRN for wheezing or cough; Jun, 12 months Active Cymbalta 20 MG Orally twice a day 3 capsule 12h Nov, Active PredniSONE 10 mg Orally once daily, morning with food 4 tablet x 2 day, then 3 tablets x 2 days, then 2 tablets x 2 days, then 1 tablets x 2 days 30 day(s) Active Ibuprofen 800 MG Orally Three times a day PRN 1 tablet Oct, Active RESULTS Name Result Date Reference Range CT Scan : Abdomen & Pelvis w/ Contrast 2017-07-16 BUN 2017-07-16 BUN UREA NITROGEN (BUN) CREATININE, SERUM 2017-07-16 Creatinine, Serum eGFR If NonAfricn Am eGFR If Africn Am CREATININE eGFR NON-AFR. THAI eGFR PROCEDURES Procedure Date Ordered Result Body Site ASSAY OF UREA NITROGEN July 16, 2017 ASSAY OF CREATININE July 16, 2017 INSTRUCTIONS MEDICATIONS ADMINISTERED No Known Medications [...]
--- OUTSIDE RECORDS SUMMARY | 2018-11-21 22:06 | XMS REPORT ---
Author Author ANDRÉS Avelar Organization [facility] Address [address] [place] [address] Care Team Providers Care Document Control Manager Name Role Phone ANDRÉS Avelar Unavailable PROBLEMS Type Condition ICD9-CM Code ILG55-EB Code Onset Dates Condition Status SNOMED Code Problem Generalized anxiety disorder F41.1 Active 57765099 Problem Hypercholesterolemia E78.00 Active 56084680 Problem Body mass index (BMI) of 32.0-32.9 in adult Z68.32 Active 947148895 Problem Chronic obstructive pulmonary disease, unspecified COPD type J44.9 Active 30899548 Problem Insomnia G47.00 Active 871761423 Problem Other depression F32.89 Active 609358702 Problem Facet arthropathy, lumbar M46.96 Active 546828654 Problem Lumbar spondylosis M47.816 Active 161342686 Problem Lumbago with sciatica, unspecified side M54.40 Active 45826104 Problem Other obesity due to excess calories E66.09 Active 833156594 Problem COPD exacerbation J44.1 Active 088137744 Problem Other chronic pain G89.29 Active 47409657 Problem Restless legs G25.81 Active 23474678 Problem Constipation due to outlet dysfunction K59.02 Active 00215288 Problem COPD (chronic obstructive pulmonary disease) J44.9 Active 06550940 Problem Depression F32.9 Active 11474331 Problem Anxiety F41.9 Active 68881206 Problem Gastroesophageal reflux disease with esophagitis K21.0 Active 100238026 Problem Essential hypertension I10 Active 22800831 Problem Severe episode of recurrent major depressive disorder, without psychotic features F33.2 Active 15487658 Problem Major depressive disorder, recurrent episode, moderate with anxious distress F33.1 Active 848353944 Problem Psychophysiological insomnia F51.04 Active [id number] ALLERGIES No Known Allergies ENCOUNTERS Encounter Location Date Diagnosis [facility] [address] [facility] [id number] [address] Nov, [place] [id number] [place] [address] Oct, [place] [id number] [place] [address] Sep, Pain aggravated by standing R52 [place] [id number] [place] [address] Sep, Other depression F32.89 [place] [id number] [place] [address] Sep, Chronic obstructive pulmonary disease, unspecified COPD type J44.9 ; Pain aggravated by standing R52 ; Other depression F32.89 ; Major depressive disorder, recurrent episode, moderate with anxious distress F33.1 ; Restless legs G25.81 ; Insomnia G47.00 ; Gastroesophageal reflux disease with esophagitis K21.0 ; Essential hypertension I10 ; Generalized anxiety disorder F41.1 and Hypercholesterolemia E78.00 [place] [id number] [place] [address] Jul, Fever, unspecified fever cause R50.9 and Cough R05 [place] [id number] [place] [address] Jul, [place] [id number] [place] [address] Jul, Gastroesophageal reflux disease with esophagitis K21.0 [place] [id number] [place] [address] Jul, [place] [id number] [place] [address] Jun, COPD (chronic obstructive pulmonary disease) J44.9 ; Restless legs G25.81 ; Insomnia G47.00 ; Essential hypertension I10 ; Major depressive disorder, recurrent episode, moderate with anxious distress F33.1 ; Gastroesophageal reflux disease with esophagitis K21.0 ; Constipation due to outlet dysfunction K59.02 ; Hypercholesterolemia E78.00 ; Other chronic pain G89.29 and Generalized abdominal pain R10.84 [place] [address] [address] Jun, [place] [id number] [place] [address] Jun, Acute recurrent sinusitis, unspecified location J01.91 and COPD exacerbation J44.1 [place] [id number] [place] [address] Jun, Lumbago with sciatica, unspecified side M54.40 [place] [id number] [place] [address] May, [place] [id number] [place] [address] May, Severe episode of recurrent major depressive disorder, without psychotic features F33.2 [place] [id number] [place] [address] Apr, COPD (chronic obstructive pulmonary disease) J44.9 [...] index (BMI) of 32.0-32.9 in adult Z68.32 [id number] [place] [address] Apr, Severe episode of recurrent major depressive disorder, without psychotic features F33.2 [place] [id number] [place] [address] Feb, Severe episode of recurrent major depressive disorder, without psychotic features F33.2 and Restless legs G25.81 [place] [id number] [place] [address] Feb, Severe episode of recurrent major depressive disorder, without psychotic features F33.2 ; Generalized anxiety disorder F41.1 and Psychophysiological insomnia F51.04 [place] [address] [address] Dec, Severe episode of recurrent major depressive disorder, without psychotic features F33.2 ; Generalized anxiety disorder F41.1 and Psychophysiological insomnia F51.04 [place] [address] [address] Nov, Severe episode of recurrent major depressive disorder, without psychotic features F33.2 ; Generalized anxiety disorder F41.1 and Psychophysiological insomnia F51.04 [place] [address] [address] Nov, [place] [address] [address] Nov, Depression F32.9 [place] [address] [address] Nov, Depression F32.9 ; Insomnia G47.00 and Anxiety F41.9 [place] [address] [address] August, COPD (chronic obstructive pulmonary disease) J44.9 ; Depression F32.9 ; Anxiety F41.9 ; Major depressive disorder, recurrent episode, moderate with anxious distress F33.1 ; Insomnia G47.00 ; Restless legs G25.81 ; Essential hypertension I10 and Pure hypercholesterolemia E78.00 [facility] [id number] [place] [address] August, Acute intractable tension-type headache G44.201 [facility] [address] [address] Jul, Left wrist pain M25.532 and Strain of left wrist, initial encounter S66.912A [place] [address] [address] May, Gastroesophageal reflux disease with esophagitis K21.0 and Anxiety F41.9 [place] [address] [address] 13 May, 2016 Major depressive disorder, recurrent episode, moderate with anxious distress F33.1 ; COPD (chronic obstructive pulmonary disease) J44.9 ; Restless legs G25.81 ; Insomnia G47.00 ; Essential hypertension I10 ; Anxiety F41.9 ; Constipation due to outlet dysfunction K59.02 ; Torsion of intestine, bowel or colon K56.2 ; Hypercholesterolemia E78.00 and Gastroesophageal reflux disease with esophagitis K21.0 [place] [id number] [place] [address] Feb, [place] [id number] [place] [address] 20 Dec, 2015 Essential hypertension I10 ; Depression F32.9 ; Anxiety F41.9 ; Constipation due to outlet dysfunction K59.02 ; Torsion of intestine, bowel or colon K56.2 ; COPD (chronic obstructive pulmonary disease) J44.9 ; Insomnia G47.00 ; Restless legs G25.81 and Gastroesophageal reflux disease with esophagitis K21.0 [place] [id number] [place] [address] 08 Dec, 2015 Essential hypertension I10 ; Major depressive disorder, recurrent episode, moderate with anxious distress F33.1 ; COPD (chronic obstructive pulmonary disease) J44.9 ; Restless legs G25.81 ; Insomnia G47.00 ; Constipation due to outlet dysfunction K59.02 and Gastroesophageal reflux disease without esophagitis K21.9 [place] [address] [address] 07 Dec, 2015 Major depressive disorder, recurrent episode, moderate with anxious distress F33.1 [place] [id number] [place] [address] Sep, [place] [id number] [place] [address] Sep, Nausea R11.0 [place] [id number] [place] [address] 15 Sep, 2015 Lower abdominal pain R10.30 ; COPD (chronic obstructive pulmonary disease) J44.9 ; Restless legs G25.81 ; Essential hypertension I10 ; Depression F32.9 ; Other chronic pain G89.29 ; Lumbago with sciatica, unspecified side M54.40 and Primary insomnia F51.01 [place] [address] [address] August, [place] [address] [address] August, COPD (chronic obstructive pulmonary disease) J44.9 ; Insomnia G47.00 ; Depression F32.9 and Constipation due to outlet dysfunction K59.02 [place] [address] [address] August, [place] [address] [address] August, [place] [address] [address] August, Nausea & vomiting R11.2 [place] [address] [address] Jun, [place] [id number] [place] [address] Jun, Unspecified abdominal pain R10.9 ; Depression, major, recurrent, moderate 296.32 ; COPD (chronic obstructive pulmonary disease) J44.9 ; Restless legs G25.81 ; Insomnia G47.00 ; Intestinal abscess K63.0 ; HTN (hypertension) I10 and Hypercholesteremia E78.0 [place] [id number] [place] [address] Jun, Intestinal abscess K63.0 [place] [id number] [place] [address] May, [place] [id number] [place] [address] May, [place] [address] [address] May, Unspecified abdominal pain R10.9 [facility] [address] [address] 08 May, 2015 Depression, major, recurrent, moderate 296.32 ; COPD (chronic obstructive pulmonary disease) J44.9 ; Restless legs G25.81 ; Insomnia G47.00 ; Depression F32.9 ; HTN (hypertension) I10 and Hypercholesterolemia E78.0 [place] [address] [address] Apr, [place] [address] [address] Mar, Cellulitis L03.90 [place] [address] [address] Feb, Recurrent major depression-severe F33.2 [place] [address] [address] Feb, Hyperlipemia E78.5 and High blood pressure I10 [place] [address] [address] Feb, COPD (chronic obstructive pulmonary disease) J44.9 ; Restless legs G25.81 ; Insomnia G47.00 ; Depression F32.9 and HTN (hypertension) I10 [place] [id number] [place] [address] Jan, [address] [address] Jan, Generalized anxiety disorder F41.1 and Recurrent major depression- severe F33.2 [place] [address] [address] 26 Oct, 2015 Bronchitis J40 [facility] [address] [address] 08 Jan, 2015 Shoulder pain, right M25.511 and Low back pain M54.5 [facility] [id number] [address] Jan, [facility] [id number] [place] [address] Oct, [facility] [id number] [place] [address] Oct, Generalized anxiety disorder 300.02 and Depression, major, severe recurrence 296.33 [facility] [address] [id number] [place] [address] Oct, [facility] [id number] [place] [address] Oct, Depression, major, recurrent, moderate 296.32 [facility] [address] [place] [id number] [place] [address] August, [facility] [id number] [place] [address] Jul, [facility] [id number] [address] Jul, [facility] [address] [address] Jun, [facility] [id number] [address] Jun, [facility] [address] [address] May, [facility] [id number] [address] May, [facility] [address] [address] May, [facility] [address] [place] [id number] [address] May, 2014 [facility] [place] [facility] [address] [id number] [place] [address] May, 2014 [facility] [place] [facility] [address] [id number] [place] [address] May, 2014 [facility] [place] [facility] [address] [id number] [place] [address] May, 2014 [facility] [place] [facility] [address] [id number] [place] [address] May, 2014 [facility] [place] [facility] [address] [id number] [place] [address] May, 2014 [facility] [place] [facility] [address] [facility] [id number] [place] [address] May, 2014 [facility] [place] [facility] [address] [facility] [id number] [place] [address] May, 2014 [facility] [place] [facility] [address] [id number] [place] [address] May, 2014 [facility] [place] [facility] [address] [facility] [id number] [place] [address] Apr, [facility] [place] [facility] [address] [facility] [id number] [place] [address] Apr, [facility] [place] [facility] [address] [id number] [address] Apr, [facility] [place] [facility] [address] [id number] [place] [address] Apr, [facility] [place] [facility] [address] [id number] [place] [address] Apr, [facility] [place] [facility] [address] [id number] [address] Apr, [facility] [place] [facility] [address] [id number] [address] Apr, [facility] [place] [facility] [address] [id number] [place] [address] Apr, [facility] [place] [facility] [address] [id number] [place] [address] Apr, [facility] [place] [facility] [address] [id number] [place] [address] Apr, [facility] [place] [facility] [address] [id number] [place] [address] Mar, [facility] [place] [facility] [address] [id number] [place] [address] Mar, [facility] [place] [facility] [address] [id number] [place] [address] Mar, [facility] [place] [facility] [address] [id number] [place] [address] Mar, [facility] [place] [facility] [address] [id number] [place] [address] Mar, [facility] [place] [facility] [address] [id number] [place] [address] Feb, [facility] [place] [facility] [address] [id number] [place] [address] Feb, [facility] [place] [facility] [address] [id number] [place] [address] Dec, [facility] [place] [facility] [address] [id number] [place] [address] Dec, [facility] [place] [facility] [address] [id number] [place] [address] Nov, [facility] [place] [facility] [address] [id number] [place] [address] Nov, [facility] [place] [facility] [address] [id number] [place] [address] Nov, [facility] [place] [facility] [address] [id number] [place] [address] Nov, [facility] [place] [facility] [address] [id number] [place] [address] Oct, [facility] [place] [facility] [address] [id number] [place] [address] Oct, [facility] [place] [facility] [address] [id number] [place] [address] Sep, [facility] [place] [facility] [address] [id number] [place] [address] Sep, [facility] [place] [facility] [address] [id number] [place] [address] August, [facility] [place] [facility] [address] [id number] [place] [address] August, [facility] [place] [facility] [address] [id number] [place] [address] August, [facility] [place] [facility] [address] [id number] [place] [address] August, [facility] [place] [facility] [address] [id number] [place] [address] Jul, [facility] [place] [facility] [address] [id number] [place] [address] Jul, [facility] [place] [facility] [address] [id number] [place] [address] Jun, [facility] [place] [facility] [address] [id number] [place] [address] Jun, [facility] [place] [facility] [address] [id number] [place] [address] May, [facility] [place] [facility] [address] [id number] [place] [address] May, [facility] [place] [facility] [address] [id number] [place] [address] May, [facility] [place] [facility] [address] [id number] [place] [address] May, [facility] [place] [facility] [address] [id number] [place] [address] May, [facility] [place] [facility] [address] [id number] [place] [address] May, [facility] [place] [facility] [address] [id number] [place] [address] May, [facility] [place] [facility] [address] [id number] [place] [address] Apr, [facility] [place] [facility] [address] [id number] [place] [address] Apr, [facility] [place] [facility] [address] [id number] [place] [address] Apr, [facility] [place] [facility] [address] [id number] [place] [address] Apr, [facility] [place] [facility] [address] [id number] [place] [address] Apr, [facility] [place] [facility] [address] [id number] [place] [address] Apr, [facility] [place] [facility] [address] [id number] [place] [address] Apr, [facility] [place] [facility] [address] [id number] [place] [address] Apr, [facility] [place] [facility] [address] [id number] [place] [address] Apr, [facility] [place] [facility] [address] [id number] [place] [address] Apr, [facility] [place] [facility] [address] [id number] [place] [address] Mar, [facility] [place] [facility] [address] [id number] [place] [address] Mar, [facility] [address] [id number] [place] [address] Mar, [facility] [place] [facility] [address] [id number] [place] [address] Mar, [facility] [address] [id number] [place] [address] Feb, [facility] [place] [facility] [address] [id number] [place] [address] Feb, [facility] [address] [id number] [place] [address] Feb, [facility] [place] [facility] [address] [id number] [place] [address] Feb, [facility] [place] [facility] [address] [id number] [place] [address] Feb, [facility] [address] [id number] [place] [address] Feb, [facility] [place] [facility] [address] [id number] [place] [address] Jan, [facility] [address] [id number] [place] [address] Jan, [facility] [place] [facility] [address] [id number] [place] [address] 05 Dec, 2012 [facility] [place] [facility] [address] [id number] [place] [address] Dec, [facility] [place] [facility] [address] [id number] [place] [address] Nov, [facility] [place] [facility] [address] [id number] [place] [address] Nov, [facility] [place] [facility] [address] [id number] [place] [address] Oct, [facility] [address] [id number] [place] [address] Sep, [facility] [place] [facility] [address] [id number] [place] [address] August, [facility] [address] [id number] [place] [address] Jul, [facility] [place] [facility] [address] [id number] [place] [address] Jul, [facility] [address] [id number] [place] [address] Jul, [facility] [place] [facility] [address] [id number] [place] [address] Jul, [facility] [address] [id number] [place] [address] Jul, [facility] [address] [id number] [place] [address] Jun, [facility] [address] [id number] [place] [address] May, [facility] [place] [facility] [address] [id number] [place] [address] Apr, [facility] [place] [facility] [address] [id number] [place] [address] Mar, [facility] [place] [facility] [address] [id number] [address] Mar, [facility] [place] [facility] [address] [id number] [place] [address] Mar, [facility] [place] [facility] [address] [id number] [place] [address] Jan, [facility] [place] [facility] [address] [id number] [place] [address] Jan, [facility] [place] [facility] [address] [id number] [place] [address] Jan, [facility] [place] [facility] [address] [id number] [place] [address] Jan, [facility] [place] [facility] [address] [id number] [place] [address] Dec, [facility] [place] [facility] [address] [id number] [place] [address] Dec, [facility] [place] [facility] [address] [id number] [place] [address] Nov, [facility] [place] [facility] [address] [id number] [place] [address] Nov, [facility] [place] [facility] [address] [id number] [place] [address] Nov, [facility] [place] [facility] [address] [id number] [place] [address] Nov, [facility] [place] [facility] [address] [id number] [place] [address] Nov, [facility] [place] [facility] [address] [id number] [place] [address] Oct, [facility] [place] [facility] [address] [id number] [place] [address] Oct, [facility] [place] [facility] [address] [id number] [place] [address] Oct, [facility] [place] [facility] [address] [id number] [place] [address] Sep, [facility] [place] [facility] [address] [id number] [place] [address] August, [facility] [place] [facility] [address] [id number] [place] [address] Jul, [facility] [place] [facility] [address] [id number] [place] [address] Jul, [facility] [place] [facility] [address] [id number] [place] [address] Jul, [facility] [place] [facility] [address] [id number] [place] [address] Jul, [facility] [place] [facility] [address] [id number] [place] [address] 29 Jun, 2011 [facility] [place] [facility] [address] [id number] [place] [address] 28 Jun, 2011 [facility] [place] [facility] [address] [id number] [place] [address] 23 Jun, 2011 [facility] [place] [facility] [address] [id number] [place] [address] Jun, [facility] [place] [facility] [address] [id number] [place] [address] Jun, [facility] [place] [facility] [address] [id number] [place] [address] May, [facility] [place] [facility] [address] [id number] [place] [address] May, [facility] [place] [facility] [address] [facility] [id number] [place] [address] May, [facility] [place] [facility] [address] [id number] [place] [address] May, [facility] [place] [facility] [address] [id number] [place] [address] Apr, [facility] [place] [facility] [address] [id number] [place] [address] Mar, [facility] [place] [facility] [address] [id number] [place] [address] Mar, [facility] [place] [facility] [address] [id number] [place] [address] 17 Jun, 2010 [facility] [place] [facility] [address] [id number] [address] Feb, [facility] [id number] [address] Jan, [facility] [id number] [address] Jan, [facility] [id number] [address] Jan, [facility] [id number] [address] Dec, [facility] [id number] [place] [id number] May, [facility] [id number] [place] [id number] Feb, [facility] [id number] [address] Feb, [facility] [id number] [address] Feb, IMMUNIZATIONS No Known Immunizations SOCIAL HISTORY Never Assessed REASON FOR VISIT Congestion, Pt sick with fever and chills since last week and SOB and cough-Shid aravind SHRESTHA PLAN OF CARE Activity Details Follow Up prn Reason: VITAL SIGNS Height 62 in 2017-07-08 Weight 177.8 lbs 2017-07-08 Temperature 98.2 degrees Fahrenheit 2017-07-08 Heart Rate 91 bpm 2017-07-08 Respiratory Rate 22 2017-07-08 Oximetry on room air:93 % 2017-07-08 BMI 32.52 kg/m2 2017-07-08 Blood pressure systolic 146 mmHg 2017-07-08 Blood pressure diastolic 90 mmHg 2017-07-08 MEDICATIONS Medication Instructions Dosage Frequency Start Date End Date Duration Status Omeprazole 20 mg Orally twice a day 1 capsule 12h 28 days Not-Taking Dulera 100-5 mcg/actuation 2 puffs by Inhalation route 2 times per day 12h 30 Jul, 2012 Active PredniSONE 10 mg Orally once daily, morning with food 4 tablet x 2 day, then 3 tablets x 2 days, then 2 tablets x 2 days, then 1 tablets x 2 days 30 day(s) Active Augmentin 875-125 MG Orally every 12 hrs 1 tablet 12h Jun, Jun, 10 day(s) Active Albuterol Sulfate 2.5 mg /3 mL (0.083 %) 1 Each by Inhalation route every 4 hours for cough and wheeze PRN for wheezing or cough; Jun, Active Ibuprofen 800 MG Orally Three times a day PRN 1 tablet Oct, 90 days Active Klonopin 0.5 MG Orally Twice a day as needed 1 tablet Nov, 30 days Active Cymbalta 20 MG Orally twice a day 3 capsule 12h Nov, Active Remeron 30 MG Orally Once a day at bedtime 1 tablet Feb, Active Losartan Potassium 100 MG Orally Once a day 1 tablet 24h Dec, Active MiraLax 17 gm/dose Orally Once a day prn 1 packet mixed with 8 ounces of fluid May, Apr, 12 months Active Melatonin 3 MG Orally Once a day 1 tablet at bedtime as needed with food 24h Active Augmentin ES-600 600-42.9 MG/5ML Orally 2 times a day take 1 tabet 12h Jun, Jun, 10 days Active Atorvastatin Calcium 10 mg Orally Once a day 1 tablet 24h May, 90 days Active Gabapentin 300 MG Orally Three times a day 1 capsule 8h May, 90 days Active RESULTS No Results PROCEDURES No [...]
--- OUTSIDE RECORDS SUMMARY | 2018-11-21 22:06 | XMS REPORT ---
Author Author ROSALINDA MATHUR Organization [facility] Address [address] [place] [address] Care Team Providers Care Warehouse Driver Name Role Phone ROSALINDA MATHUR Unavailable PROBLEMS Type Condition ICD9-CM Code JTY44-OK Code Onset Dates Condition Status SNOMED Code Problem Generalized anxiety disorder F41.1 Active 03155143 Problem Hypercholesterolemia E78.00 Active 07136077 Problem Body mass index (BMI) of 32.0-32.9 in adult Z68.32 Active 214024666 Problem Chronic obstructive pulmonary disease, unspecified COPD type J44.9 Active 26543535 Problem Insomnia G47.00 Active 212782710 Problem Other depression F32.89 Active 628191497 Problem Facet arthropathy, lumbar M46.96 Active 757860487 Problem Lumbar spondylosis M47.816 Active 497538871 Problem Lumbago with sciatica, unspecified side M54.40 Active 94609936 Problem Other obesity due to excess calories E66.09 Active 666350517 Problem COPD exacerbation J44.1 Active 354417275 Problem Other chronic pain G89.29 Active 42534331 Problem Restless legs G25.81 Active 54680826 Problem Constipation due to outlet dysfunction K59.02 Active 03071098 Problem COPD (chronic obstructive pulmonary disease) J44.9 Active 75819285 Problem Depression F32.9 Active 64225030 Problem Anxiety F41.9 Active 38131971 Problem Gastroesophageal reflux disease with esophagitis K21.0 Active 046282761 Problem Essential hypertension I10 Active 48845769 Problem Severe episode of recurrent major depressive disorder, without psychotic features F33.2 Active 10923371 Problem Major depressive disorder, recurrent episode, moderate with anxious distress F33.1 Active 516801119 Problem Psychophysiological insomnia F51.04 Active [id number] ALLERGIES No Information ENCOUNTERS Encounter Location Date Diagnosis [facility] [address] [facility] [id number] [address] Sep, Pain aggravated by standing R52 [place] [id number] [address] Sep, Other depression F32.89 [place] [address] [address] Sep, Chronic obstructive pulmonary disease, unspecified COPD type J44.9 ; Pain aggravated by standing R52 ; Other depression F32.89 ; Major depressive disorder, recurrent episode, moderate with anxious distress F33.1 ; Restless legs G25.81 ; Insomnia G47.00 ; Gastroesophageal reflux disease with esophagitis K21.0 ; Essential hypertension I10 ; Generalized anxiety disorder F41.1 and Hypercholesterolemia E78.00 [place] [address] [address] Jul, Fever, unspecified fever cause R50.9 and Cough R05 [place] [address] [address] Jul, [place] [address] [address] Jul, Gastroesophageal reflux disease with esophagitis K21.0 [place] [address] [address] Jul, [place] [address] [address] Jun, COPD (chronic obstructive pulmonary disease) J44.9 ; Restless legs G25.81 ; Insomnia G47.00 ; Essential hypertension I10 ; Major depressive disorder, recurrent episode, moderate with anxious distress F33.1 ; Gastroesophageal reflux disease with esophagitis K21.0 ; Constipation due to outlet dysfunction K59.02 ; Hypercholesterolemia E78.00 ; Other chronic pain G89.29 and Generalized abdominal pain R10.84 [place] [address] [address] Jun, [place] [address] [address] Jun, Acute recurrent sinusitis, unspecified location J01.91 and COPD exacerbation J44.1 [place] [id number] [place] [address] Jun, Lumbago with sciatica, unspecified side M54.40 [place] [address] [place] [id number] [place] [address] May, [place] [address] [address] May, Severe episode of recurrent major depressive disorder, without psychotic features F33.2 [place] [address] [place] [id number] [place] [address] Apr, COPD (chronic obstructive pulmonary disease) J44.9 [...] index (BMI) of 32.0-32.9 in adult Z68.32 [place] [address] [place] [id number] [place] [address] Apr, Severe episode of recurrent major depressive disorder, without psychotic features F33.2 [place] [address] [place] [id number] [place] [address] Feb, Severe episode of recurrent major depressive disorder, without psychotic features F33.2 and Restless legs G25.81 [place] [address] [place] [id number] [place] [address] Feb, Severe episode of recurrent major depressive disorder, without psychotic features F33.2 ; Generalized anxiety disorder F41.1 and Psychophysiological insomnia F51.04 [place] [id number] [place] [address] Dec, Severe episode of recurrent major depressive disorder, without psychotic features F33.2 ; Generalized anxiety disorder F41.1 and Psychophysiological insomnia F51.04 [place] [address] [place] [id number] [place] [address] Nov, Severe episode of recurrent major depressive disorder, without psychotic features F33.2 ; Generalized anxiety disorder F41.1 and Psychophysiological insomnia F51.04 [place] [address] [place] [id number] [place] [address] Nov, [place] [address] [address] Nov, Depression F32.9 [place] [address] [address] Nov, Depression F32.9 ; Insomnia G47.00 and Anxiety F41.9 [place] [address] [address] August, COPD (chronic obstructive pulmonary disease) J44.9 ; Depression F32.9 ; Anxiety F41.9 ; Major depressive disorder, recurrent episode, moderate with anxious distress F33.1 ; Insomnia G47.00 ; Restless legs G25.81 ; Essential hypertension I10 and Pure hypercholesterolemia E78.00 [place] [address] [place] [id number] [place] [address] August, Acute intractable tension-type headache G44.201 [facility] [address] [place] [id number] [place] [address] Jul, Left wrist pain M25.532 and Strain of left wrist, initial encounter S66.912A [facility] [address] [place] [id number] [place] [address] 14 May, 2016 Gastroesophageal reflux disease with esophagitis K21.0 and Anxiety F41.9 [facility] [address] [place] [id number] [place] [address] 13 May, 2016 Major depressive disorder, recurrent episode, moderate with anxious distress F33.1 ; COPD (chronic obstructive pulmonary disease) J44.9 ; Restless legs G25.81 ; Insomnia G47.00 ; Essential hypertension I10 ; Anxiety F41.9 ; Constipation due to outlet dysfunction K59.02 ; Torsion of intestine, bowel or colon K56.2 ; Hypercholesterolemia E78.00 and Gastroesophageal reflux disease with esophagitis K21.0 [place] [address] [place] [id number] [place] [address] 07 Feb, 2016 [place] [address] [address] 20 Dec, 2015 Essential hypertension I10 ; Depression F32.9 ; Anxiety F41.9 ; Constipation due to outlet dysfunction K59.02 ; Torsion of intestine, bowel or colon K56.2 ; COPD (chronic obstructive pulmonary disease) J44.9 ; Insomnia G47.00 ; Restless legs G25.81 and Gastroesophageal reflux disease with esophagitis K21.0 [place] [address] [place] [id number] [place] [address] 08 Dec, 2015 Essential hypertension I10 ; Major depressive disorder, recurrent episode, moderate with anxious distress F33.1 ; COPD (chronic obstructive pulmonary disease) J44.9 ; Restless legs G25.81 ; Insomnia G47.00 ; Constipation due to outlet dysfunction K59.02 and Gastroesophageal reflux disease without esophagitis K21.9 [place] [address] [place] [id number] [place] [address] 07 Dec, 2015 Major depressive disorder, recurrent episode, moderate with anxious distress F33.1 [place] [address] [place] [id number] [place] [address] Sep, [place] [address] [place] [id number] [place] [address] 23 Sep, 2015 Nausea R11.0 [place] [address] [place] [id number] [place] [address] 15 Sep, 2015 Lower abdominal pain R10.30 ; COPD (chronic obstructive pulmonary disease) J44.9 ; Restless legs G25.81 ; Essential hypertension I10 ; Depression F32.9 ; Other chronic pain G89.29 ; Lumbago with sciatica, unspecified side M54.40 and Primary insomnia F51.01 [place] [address] [place] [id number] [place] [address] August, [place] [address] [address] August, COPD (chronic obstructive pulmonary disease) J44.9 ; Insomnia G47.00 ; Depression F32.9 and Constipation due to outlet dysfunction K59.02 [place] [address] [place] [id number] [place] [address] August, [place] [address] [address] August, [place] [address] [address] August, Nausea & vomiting R11.2 [place] [address] [address] Jun, [place] [address] [place] [id number] [place] [address] Jun, Unspecified abdominal pain R10.9 ; Depression, major, recurrent, moderate 296.32 ; COPD (chronic obstructive pulmonary disease) J44.9 ; Restless legs G25.81 ; Insomnia G47.00 ; Intestinal abscess K63.0 ; HTN (hypertension) I10 and Hypercholesteremia E78.0 [place] [address] [place] [id number] [place] [address] Jun, Intestinal abscess K63.0 [place] [address] [place] [id number] [place] [address] May, [place] [address] [place] [id number] [place] [address] May, [place] [address] [place] [id number] [place] [address] May, Unspecified abdominal pain R10.9 [place] [address] [place] [id number] [place] [address] 08 May, 2015 Depression, major, recurrent, moderate 296.32 ; COPD (chronic obstructive pulmonary disease) J44.9 ; Restless legs G25.81 ; Insomnia G47.00 ; Depression F32.9 ; HTN (hypertension) I10 and Hypercholesterolemia E78.0 [place] [id number] [place] [address] Apr, [address] [address] Mar, Cellulitis L03.[address] [address] Feb, Recurrent major depression-severe F33.[address] [address] Feb, Hyperlipemia E78.5 and High blood pressure I10 [address] [address] Feb, COPD (chronic obstructive pulmonary disease) J44.9 ; Restless legs G25.81 ; Insomnia G47.00 ; Depression F32.9 and HTN (hypertension) I10 [place] [id number] [place] [address] Jan, [place] [id number] [place] [address] Jan, Generalized anxiety disorder F41.1 and Recurrent major depression- severe F33.[address] [address] Jan, Bronchitis J40 [address] [address] Jan, Shoulder pain, right M25.511 and Low back pain M54.[address] [address] Jan, [facility] [address] [address] Oct, [facility] [address] [place] [id number] [place] [address] Oct, Generalized anxiety disorder 300.02 and Depression, major, severe recurrence 296.33 [facility] [address] [place] [id number] [place] [address] Oct, [facility] [address] [place] [id number] [place] [address] Oct, Depression, major, recurrent, moderate 296.32 [facility] [address] [place] [id number] [place] [address] August, [facility] [address] [place] [id number] [place] [address] Jul, [facility] [address] [place] [id number] [place] [address] Jul, [facility] [address] [place] [address] Jun, [facility] [address] [place] [id number] [place] [address] Jun, [facility] [address] [place] [address] May, [facility] [address] [place] [address] May, [facility] [address] [address] May, [facility] [address] [place] [id number] [place] [address] May, [facility] [address] [address] May, [facility] [address] [place] [id number] [place] [address] May, 2014 [facility] [place] [facility] [address] [id number] [place] [address] May, 2014 [facility] [place] [facility] [address] [id number] [place] [address] May, 2014 [facility] [place] [facility] [address] [id number] [place] [address] May, 2014 [facility] [place] [facility] [address] [id number] [place] [address] May, 2014 [facility] [place] [facility] [address] [id number] [place] [address] May, 2014 [facility] [place] [facility] [address] [facility] [id number] [place] [address] May, 2014 [facility] [place] [facility] [address] [facility] [id number] [place] [address] Apr, [facility] [place] [facility] [address] [id number] [place] [address] Apr, [facility] [place] [facility] [address] [place] [id number] [address] Apr, [facility] [place] [facility] [address] [facility] [id number] [place] [address] Apr, [facility] [place] [facility] [address] [id number] [place] [address] Apr, [facility] [place] [facility] [address] [id number] [place] [address] Apr, [facility] [place] [facility] [address] [id number] [place] [address] Apr, [facility] [place] [facility] [address] [facility] [id number] [place] [address] Apr, [facility] [place] [facility] [address] [facility] [id number] [place] [address] Apr, [facility] [place] [facility] [address] [id number] [place] [address] Apr, [facility] [place] [facility] [address] [id number] [place] [address] Mar, [facility] [place] [facility] [address] [id number] [place] [address] Mar, [facility] [place] [facility] [address] [id number] [place] [address] Mar, [facility] [place] [facility] [address] [id number] [place] [address] Mar, [facility] [place] [facility] [address] [id number] [place] [address] Mar, [facility] [place] [facility] [address] [id number] [place] [address] Feb, [facility] [place] [facility] [address] [id number] [place] [address] Feb, [facility] [place] [facility] [address] [id number] [place] [address] Dec, [facility] [place] [facility] [address] [id number] [place] [address] Dec, [facility] [place] [facility] [address] [id number] [place] [address] Nov, [facility] [place] [facility] [address] [id number] [place] [address] Nov, [facility] [place] [facility] [address] [id number] [place] [address] Nov, [facility] [place] [facility] [address] [id number] [place] [address] Nov, [facility] [place] [facility] [address] [id number] [place] [address] Oct, [facility] [place] [facility] [address] [id number] [address] Oct, [facility] [place] [facility] [address] [id number] [place] [address] Sep, [facility] [place] [facility] [address] [id number] [place] [address] Sep, [facility] [place] [facility] [address] [id number] [place] [address] August, [facility] [place] [facility] [address] [id number] [place] [address] August, [facility] [place] [facility] [address] [id number] [place] [address] August, [facility] [place] [facility] [address] [id number] [place] [address] August, [facility] [place] [facility] [address] [id number] [place] [address] Jul, [facility] [place] [facility] [address] [id number] [place] [address] Jul, [facility] [place] [facility] [address] [id number] [place] [address] Jun, [facility] [place] [facility] [address] [facility] [id number] [place] [address] Jun, [facility] [place] [facility] [address] [id number] [place] [address] May, [facility] [place] [facility] [address] [id number] [place] [address] May, [facility] [place] [facility] [address] [id number] [place] [address] May, [facility] [place] [facility] [address] [id number] [place] [address] May, [facility] [place] [facility] [address] [id number] [place] [address] May, [facility] [place] [facility] [address] [id number] [place] [address] May, [facility] [place] [facility] [address] [id number] [place] [address] May, [facility] [place] [facility] [address] [id number] [place] [address] Apr, [facility] [place] [facility] [address] [id number] [place] [address] Apr, [facility] [address] [id number] [place] [address] Apr, [facility] [place] [facility] [address] [id number] [place] [address] Apr, [facility] [place] [facility] [address] [id number] [place] [address] Apr, [facility] [place] [facility] [address] [id number] [place] [address] Apr, [facility] [place] [facility] [address] [id number] [place] [address] Apr, [facility] [place] [facility] [address] [id number] [place] [address] Apr, [facility] [place] [facility] [address] [id number] [place] [address] Apr, [facility] [place] [facility] [address] [id number] [place] [address] Apr, [facility] [place] [facility] [address] [id number] [place] [address] Mar, [facility] [place] [facility] [address] [id number] [place] [address] Mar, [facility] [place] [facility] [address] [id number] [place] [address] Mar, [facility] [place] [facility] [address] [id number] [address] Mar, [facility] [place] [facility] [address] [id number] [place] [address] Feb, [facility] [place] [facility] [address] [id number] [place] [address] Feb, [facility] [place] [facility] [address] [id number] [place] [address] Feb, [facility] [place] [facility] [address] [id number] [place] [address] Feb, [facility] [place] [facility] [address] [id number] [place] [address] Feb, [facility] [place] [facility] [address] [id number] [place] [address] Feb, [facility] [place] [facility] [address] [id number] [place] [address] Jan, [facility] [place] [facility] [address] [id number] [place] [address] Jan, [facility] [place] [facility] [address] [id number] [place] [address] Dec, [facility] [place] [facility] [address] [id number] [place] [address] Dec, [facility] [place] [facility] [address] [id number] [address] Nov, [facility] [place] [facility] [address] [id number] [address] Nov, [facility] [place] [facility] [address] [id number] [place] [address] Oct, [facility] [place] [facility] [address] [id number] [place] [address] Sep, [facility] [place] [facility] [address] [id number] [place] [address] August, [facility] [place] [facility] [address] [id number] [place] [address] 30 Jul, 2012 [facility] [address] [id number] [place] [address] 14 Jul, 2012 [facility] [place] [facility] [address] [id number] [place] [address] 10 Jul, 2012 [facility] [address] [id number] [place] [address] 05 Jul, 2012 [facility] [place] [facility] [address] [id number] [place] [address] Jul, [facility] [place] [facility] [address] [id number] [place] [address] Jun, [facility] [place] [facility] [address] [id number] [place] [address] May, [facility] [place] [facility] [address] [id number] [place] [address] Apr, [facility] [address] [id number] [place] [address] Mar, [facility] [address] [id number] [place] [address] Mar, [facility] [address] [facility] [id number] [place] [address] Mar, [facility] [place] [facility] [address] [id number] [place] [address] Jan, [facility] [place] [facility] [address] [id number] [place] [address] Jan, [facility] [place] [facility] [address] [id number] [place] [address] Jan, [facility] [place] [facility] [address] [facility] [id number] [place] [address] Jan, [facility] [place] [facility] [address] [id number] [place] [address] Dec, [facility] [place] [facility] [address] [id number] [place] [address] Dec, [facility] [place] [facility] [address] [id number] [place] [address] Nov, [facility] [place] [facility] [address] [id number] [place] [address] Nov, [facility] [place] [facility] [address] [id number] [place] [address] Nov, [facility] [place] [facility] [address] [id number] [place] [address] Nov, [facility] [place] [facility] [address] [id number] [place] [address] Nov, [facility] [place] [facility] [address] [id number] [place] [address] Oct, [facility] [place] [facility] [address] [id number] [place] [address] Oct, [facility] [place] [facility] [address] [id number] [place] [address] Oct, [facility] [place] [facility] [address] [id number] [place] [address] Sep, [facility] [place] [facility] [address] [id number] [place] [address] August, [facility] [place] [facility] [address] [id number] [address] Jul, [facility] [place] [facility] [address] [id number] [place] [address] Jul, [facility] [place] [facility] [address] [id number] [place] [address] Jul, [facility] [place] [facility] [address] [id number] [place] [address] Jul, [facility] [place] [facility] [address] [id number] [place] [address] 29 Jun, 2011 [facility] [address] [id number] [place] [address] 28 Jun, 2011 [facility] [place] [facility] [address] [id number] [place] [address] 23 Jun, 2011 [facility] [place] [facility] [address] [id number] [place] [address] 21 Jun, 2011 [facility] [place] [facility] [address] [id number] [place] [address] 15 Jun, 2011 [facility] [place] [facility] [address] [id number] [place] [address] 28 May, 2011 [facility] [place] [facility] [address] [id number] [place] [address] 28 May, 2011 [facility] [place] [facility] [address] [facility] [id number] [place] [address] 27 May, 2011 [facility] [place] [facility] [address] [id number] [place] [address] 24 May, 2011 [facility] [place] [facility] [address] [id number] [address] Apr, [facility] [place] [facility] [address] [address] [facility] [id number] [place] [address] 28 Mar, 2011 [facility] [place] [facility] [address] [id number] [place] [address] Mar, [facility] [facility] [facility] [address] [id number] [place] [address] 17 Jun, 2010 [facility] [place] [facility] [address] [id number] [place] [address] 08 Feb, 2010 [facility] [place] [facility] [address] [id number] [place] [address] 26 Jan, 2010 [facility] [place] [facility] [address] [facility] [facility] [id number] [place] [address] Jan, [facility] [address] [facility] [id number] [place] [address] Jan, [facility] [id number] [address] Dec, [facility] [id number] [address] May, [facility] [id number] [address] Feb, [facility] [id number] [address] Feb, [facility] [id number] [address] Feb, IMMUNIZATIONS No Known Immunizations SOCIAL HISTORY Never Assessed REASON FOR VISIT PT Evaluation PLAN OF CARE Activity Details Follow Up 2 Weeks Reason:F/U PT VITAL SIGNS MEDICATIONS Unknown Medications RESULTS No Results PROCEDURES Procedure Date Ordered Result Body Site PT EVAL LOW COMPLEX 20 MIN June 24, 2017 THERAPEUTIC EXERCISES June 24, 2017 INSTRUCTIONS MEDICATIONS ADMINISTERED No Known Medications [...]
--- OUTSIDE RECORDS SUMMARY | 2018-11-21 22:06 | XMS REPORT ---
Author Author IOANA VILLATORO Organization [facility] Address [address] [place] [address] Care Team Providers Care Traffic Expert Name Role Phone KAL VILLATOROE Unavailable PROBLEMS Type Condition ICD9-CM Code ACL37-TA Code Onset Dates Condition Status SNOMED Code Problem Constipation due to outlet dysfunction K59.02 Active 67095185 Problem Major depressive disorder, recurrent episode, moderate with anxious distress F33.1 Active 478901639 Problem Essential hypertension I10 Active 18469808 Problem Insomnia G47.00 Active 039473047 Problem COPD (chronic obstructive pulmonary disease) J44.9 Active 67585319 Problem Depression F32.9 Active 41181529 Problem Restless legs G25.81 Active 28719482 Problem Generalized anxiety disorder F41.1 Active 98219752 Problem Psychophysiological insomnia F51.04 Active 894141887 Problem Anxiety F41.9 Active 45394142 Problem Torsion of intestine, bowel or colon K56.2 Active 859655 Problem Severe episode of recurrent major depressive disorder, without psychotic features F33.2 Active 85583494 Problem Gastroesophageal reflux disease with esophagitis K21.0 Active 660423161 ALLERGIES No Known Allergies SOCIAL HISTORY Never Assessed PLAN OF CARE Activity Details Follow Up 1 Week Reason:htn VITAL SIGNS Height 62 in 2016-09-10 Weight 168.3 lbs 2016-09-10 Temperature 98.1 degrees Fahrenheit 2016-09-10 Heart Rate 84 bpm 2016-09-10 Respiratory Rate 20 2016-09-10 BMI 30.78 kg/m2 2016-09-10 Blood pressure systolic 174 mmHg 2016-09-10 Blood pressure diastolic 116 mmHg 2016-09-10 MEDICATIONS Medication Instructions Dosage Frequency Start Date End Date Duration Status ProAir HFA 90 mcg/actuation Inhalation every 4 hrs inhale 2 puffs by Inhalation route every 4 hours as needed PRN shortness of breath/cough 4h Apr, Active Dulera 100-5 mcg/actuation 2 puffs by Inhalation route 2 times per day 12h 30 Apr, 2013 Active Ibuprofen 800 MG Orally Three times a day PRN 1 tablet Active Xanax 1 MG Orally Twice a day 1 tablet 12h August, Active Albuterol Sulfate 2.5 mg /3 mL (0.083 %) 1 Each by Inhalation route every 4 hours for cough and wheeze PRN for wheezing or cough; Jun, Active Atorvastatin Calcium 10 mg Orally Once a day 1 tablet 24h May, 90 days Active Gabapentin 300 MG Orally Three times a day 1 capsule 8h May, Active MiraLax 17 gm/dose as directed May, Active Melatonin 3 MG Orally Once a day 1 tablet at bedtime as needed with food 24h Active Cymbalta 60 mg Orally Once a day 1 capsule 24h May, 90 days Active Losartan Potassium 100 MG Orally Once a day 1 tablet 24h Dec, Active RESULTS No Results PROCEDURES No Known [...]
--- OUTSIDE RECORDS SUMMARY | 2018-11-21 22:07 | XMS REPORT ---
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 Name Role Phone Cara IOANA Unavailable PROBLEMS Type Condition ICD9-CM Code GPD66-GC Code Onset Dates Condition Status SNOMED Code Problem Severe episode of recurrent major depressive disorder, without psychotic features F33.2 Active 72348784 Problem Generalized anxiety disorder F41.1 Active 46026106 Problem Psychophysiological insomnia F51.04 Active 801300885 Problem COPD exacerbation J44.1 Active 325035841 Problem Lumbar spondylosis M47.816 Active 750902773 Problem Other chronic pain G89.29 Active 05057263 Problem Hypercholesterolemia E78.00 Active 44935342 Problem Body mass index (BMI) of 32.0-32.9 in adult Z68.32 Active 441598921 Problem Lumbago with sciatica, unspecified side M54.40 Active 64930020 Problem Other obesity due to excess calories E66.09 Active 571606835 Problem COPD (chronic obstructive pulmonary disease) J44.9 Active 32519650 Problem Depression F32.9 Active 22807909 Problem Facet arthropathy, lumbar M46.96 Active 539423225 Problem Insomnia G47.00 Active 065090328 Problem Essential hypertension I10 Active 12081219 Problem Major depressive disorder, recurrent episode, moderate with anxious distress F33.1 Active 756314445 Problem Restless legs G25.81 Active 60336685 Problem Anxiety F41.9 Active 43228110 Problem Constipation due to outlet dysfunction K59.02 Active 23141099 Problem Gastroesophageal reflux disease with esophagitis K21.0 Active [id number] ALLERGIES No Information ENCOUNTERS Encounter Location Date Diagnosis [facility] [place] [address] [facility] [id number] [address] Jul, [facility] [place] [id number] [place] [address] Jul, [place] [id number] [place] [address] Jul, [place] [id number] [place] [address] Jul, Gastroesophageal reflux disease with esophagitis K21.0 [place] [id number] [place] [address] Jul, [place] [id number] [place] [address] Jun, COPD (chronic obstructive pulmonary disease) J44.9 ; Restless legs G25.81 ; Insomnia G47.00 ; Essential hypertension I10 ; Major depressive disorder, recurrent episode, moderate with anxious distress F33.1 ; Gastroesophageal reflux disease with esophagitis K21.0 ; Constipation due to outlet dysfunction K59.02 ; Hypercholesterolemia E78.00 ; Other chronic pain G89.29 and Generalized abdominal pain R10.84 [place] [id number] [place] [address] Jun, [place] [id number] [place] [address] Jun, Acute recurrent sinusitis, unspecified location J01.91 and COPD exacerbation J44.1 [place] [id number] [place] [address] Jun, Lumbago with sciatica, unspecified side M54.40 [place] [id number] [place] [address] May, [place] [id number] [place] [address] May, Severe episode of recurrent major depressive disorder, without psychotic features F33.2 [place] [id number] [place] [address] Apr, COPD (chronic obstructive pulmonary disease) J44.9 [...] of 32.0-32.9 in adult Z68.32 [place] [id number] [place] [address] Apr, Severe episode of recurrent major depressive disorder, without psychotic features F33.2 [place] [id number] [place] [address] Feb, Severe episode of recurrent major depressive disorder, without psychotic features F33.2 and Restless legs G25.81 [place] [id number] [place] [address] Feb, Severe episode of recurrent major depressive disorder, without psychotic features F33.2 ; Generalized anxiety disorder F41.1 and Psychophysiological insomnia F51.04 [place] [id number] [place] [address] Dec, Severe episode of recurrent major depressive disorder, without psychotic features F33.2 ; Generalized anxiety disorder F41.1 and Psychophysiological insomnia F51.04 [place] [id number] [place] [address] Nov, Severe episode of recurrent major depressive disorder, without psychotic features F33.2 ; Generalized anxiety disorder F41.1 and Psychophysiological insomnia F51.04 [place] [id number] [place] [address] Nov, [place] [address] [address] Nov, Depression F32.9 [place] [id number] [place] [address] Nov, Depression F32.9 ; Insomnia G47.00 and Anxiety F41.9 [place] [id number] [place] [address] August, COPD (chronic obstructive pulmonary disease) J44.9 ; Depression F32.9 ; Anxiety F41.9 ; Major depressive disorder, recurrent episode, moderate with anxious distress F33.1 ; Insomnia G47.00 ; Restless legs G25.81 ; Essential hypertension I10 and Pure hypercholesterolemia E78.00 [place] [id number] [place] [address] August, Acute intractable tension-type headache G44.201 [facility] [address] [address] Jul, Left wrist pain M25.532 and Strain of left wrist, initial encounter S66.912A [place] [id number] [place] [address] 14 May, 2016 Gastroesophageal reflux disease with esophagitis K21.0 and Anxiety F41.9 [place] [id number] [place] [address] 13 May, 2016 Major depressive disorder, recurrent episode, moderate with anxious distress F33.1 ; COPD (chronic obstructive pulmonary disease) J44.9 ; Restless legs G25.81 ; Insomnia G47.00 ; Essential hypertension I10 ; Anxiety F41.9 ; Constipation due to outlet dysfunction K59.02 ; Torsion of intestine, bowel or colon K56.2 ; Hypercholesterolemia E78.00 and Gastroesophageal reflux disease with esophagitis K21.0 [facility] [place] [id number] [place] [address] Feb, [address] [address] 20 Dec, 2015 Essential hypertension I10 ; Depression F32.9 ; Anxiety F41.9 ; Constipation due to outlet dysfunction K59.02 ; Torsion of intestine, bowel or colon K56.2 ; COPD (chronic obstructive pulmonary disease) J44.9 ; Insomnia G47.00 ; Restless legs G25.81 and Gastroesophageal reflux disease with esophagitis K21.0 [place] [id number] [place] [address] 08 Dec, 2015 Essential hypertension I10 ; Major depressive disorder, recurrent episode, moderate with anxious distress F33.1 ; COPD (chronic obstructive pulmonary disease) J44.9 ; Restless legs G25.81 ; Insomnia G47.00 ; Constipation due to outlet dysfunction K59.02 and Gastroesophageal reflux disease without esophagitis K21.9 [place] [id number] [place] [address] 07 Dec, 2015 Major depressive disorder, recurrent episode, moderate with anxious distress F33.1 [place] [address] [address] 28 Sep, 2015 [place] [id number] [place] [address] Sep, Nausea R11.0 [place] [address] [address] 15 Sep, 2015 Lower abdominal pain R10.30 ; COPD (chronic obstructive pulmonary disease) J44.9 ; Restless legs G25.81 ; Essential hypertension I10 ; Depression F32.9 ; Other chronic pain G89.29 ; Lumbago with sciatica, unspecified side M54.40 and Primary insomnia F51.01 [place] [id number] [place] [address] August, [place] [id number] [place] [address] August, COPD (chronic obstructive pulmonary disease) J44.9 ; Insomnia G47.00 ; Depression F32.9 and Constipation due to outlet dysfunction K59.02 [place] [id number] [place] [address] August, [place] [id number] [place] [address] August, [place] [address] [address] August, Nausea & vomiting R11.2 [facility] [place] [id number] [place] [address] Jun, [facility] [place] [id number] [place] [address] Jun, Unspecified abdominal pain R10.9 ; Depression, major, recurrent, moderate 296.32 ; COPD (chronic obstructive pulmonary disease) J44.9 ; Restless legs G25.81 ; Insomnia G47.00 ; Intestinal abscess K63.0 ; HTN (hypertension) I10 and Hypercholesteremia E78.0 [facility] [place] [id number] [place] [address] Jun, Intestinal abscess K63.0 [facility] [place] [id number] [place] [address] May, [facility] [place] [id number] [place] [address] May, [facility] [place] [id number] [place] [address] May, Unspecified abdominal pain R10.9 [facility] [place] [id number] [place] [address] May, Depression, major, recurrent, moderate 296.32 ; COPD (chronic obstructive pulmonary disease) J44.9 ; Restless legs G25.81 ; Insomnia G47.00 ; Depression F32.9 ; HTN (hypertension) I10 and Hypercholesterolemia E78.0 [facility] [place] [address] [place] [address] Apr, [facility] [place] [id number] [place] [address] Mar, Cellulitis L03.90 [facility] [place] [address] [place] [address] Feb, Recurrent major depression-severe F33.2 [place] [id number] [place] [address] Feb, Hyperlipemia E78.5 and High blood pressure I10 [place] [address] [address] Feb, COPD (chronic obstructive pulmonary disease) J44.9 ; Restless legs G25.81 ; Insomnia G47.00 ; Depression F32.9 and HTN (hypertension) I10 [facility] [place] [address] [address] Jan, [place] [address] [address] Jan, Generalized anxiety disorder F41.1 and Recurrent major depression- severe F33.[address] [address] Jan, Bronchitis J40 [place] [address] [address] Jan, Shoulder pain, right M25.511 and Low back pain M54.5 [place] [address] [address] Jan, [facility] [place] [id number] [place] [address] Oct, [place] [id number] [place] [address] Oct, Generalized anxiety disorder 300.02 and Depression, major, severe recurrence 296.33 [facility] [place] [id number] [place] [address] Oct, [address] [address] Oct, Depression, major, recurrent, moderate 296.32 [place] [address] [address] August, [facility] [place] [facility] [address] [facility] [id number] [place] [address] 14 Jul, 2014 [facility] [place] [facility] [address] [id number] [place] [address] 13 Jul, 2014 [facility] [place] [facility] [address] [id number] [place] [address] Jun, [facility] [place] [facility] [address] [id number] [place] [address] Jun, [facility] [place] [facility] [address] [id number] [place] [address] May, 2014 [facility] [place] [facility] [address] [id number] [place] [address] May, 2014 [facility] [place] [facility] [address] [facility] [id number] [place] [address] May, 2014 [facility] [place] [facility] [address] [id number] [place] [address] May, 2014 [facility] [place] [facility] [address] [id number] [place] [address] May, 2014 [facility] [place] [facility] [address] [facility] [id number] [place] [address] May, 2014 [facility] [place] [facility] [address] [facility] [id number] [place] [address] May, 2014 [facility] [place] [facility] [address] [id number] [place] [address] May, 2014 [facility] [place] [facility] [address] [id number] [place] [address] May, 2014 [facility] [place] [facility] [address] [id number] [place] [address] May, 2014 [facility] [place] [facility] [address] [facility] [id number] [place] [address] May, 2014 [facility] [place] [facility] [address] [facility] [id number] [place] [address] May, [facility] [address] [id number] [place] [address] Apr, [facility] [place] [facility] [address] [id number] [place] [address] Apr, [facility] [place] [facility] [address] [id number] [place] [address] Apr, [facility] [place] [facility] [address] [id number] [place] [address] Apr, [facility] [place] [facility] [address] [id number] [place] [address] Apr, [facility] [place] [facility] [address] [id number] [place] [address] Apr, [facility] [place] [facility] [address] [id number] [place] [address] Apr, [facility] [place] [facility] [address] [id number] [place] [address] Apr, [facility] [place] [facility] [address] [id number] [place] [address] Apr, [facility] [place] [facility] [address] [id number] [place] [address] Apr, [facility] [place] [facility] [address] [id number] [place] [address] Mar, [facility] [place] [facility] [address] [id number], [place] [address] Mar, [facility] [place] [facility] [address] [id number] [place] [address] Mar, [facility] [place] [facility] [address] [id number] [place] [address] Mar, [facility] [place] [facility] [address] [id number] [place] [address] Mar, [facility] [place] [facility] [address] [id number] [place] [address] Feb, [facility] [place] [facility] [address] [id number] [place] [address] Feb, [facility] [place] [facility] [address] [id number] [place] [address] Dec, [facility] [place] [facility] [address] [id number] [place] [address] Dec, [facility] [place] [facility] [address] [id number] [place] [address] Nov, [facility] [place] [facility] [address] [id number] [place] [address] Nov, [facility] [place] [facility] [address] [id number] [place] [address] Nov, [facility] [place] [facility] [address] [id number] [place] [address] Nov, [facility] [place] [facility] [address] [id number] [place] [address] Oct, [facility] [place] [facility] [address] [id number] [place] [address] Oct, [facility] [place] [facility] [address] [id number] [place] [address] Sep, [facility] [place] [facility] [address] [id number] [place] [address] Sep, [facility] [place] [facility] [address] [id number] [place] [address] August, [facility] [place] [facility] [address] [id number] [place] [address] August, [facility] [place] [facility] [address] [id number] [place] [address] August, [facility] [place] [facility] [address] [id number] [place] [address] August, [facility] [address] [id number] [place] [address] Jul, [facility] [place] [facility] [address] [id number] [place] [address] Jul, [facility] [place] [facility] [address] [facility] [id number] [place] [address] Jun, [facility] [place] [facility] [address] [id number] [place] [address] Jun, [facility] [place] [facility] [address] [id number] [place] [address] May, [facility] [place] [facility] [address] [id number] [place] [address] May, [facility] [place] [facility] [address] [facility] [id number] [place] [address] May, [facility] [place] [facility] [address] [id number] [place] [address] May, [facility] [place] [facility] [address] [id number] [place] [address] May, [facility] [place] [facility] [address] [facility] [id number] [place] [address] May, [facility] [place] [facility] [address] [id number] [place] [address] May, [facility] [place] [facility] [address] [id number] [place] [address] Apr, [facility] [place] [facility] [address] [id number] [place] [address] Apr, [facility] [place] [facility] [address] [id number] [place] [address] Apr, [facility] [place] [facility] [address] [facility] [id number] [place] [address] Apr, [facility] [place] [facility] [address] [id number] [place] [address] Apr, [facility] [place] [facility] [address] [id number] [place] [address] Apr, [facility] [place] [facility] [address] [id number] [place] [address] Apr, [facility] [place] [facility] [address] [id number] [place] [address] Apr, [facility] [place] [facility] [address] [id number] [place] [address] Apr, [facility] [place] [facility] [address] [id number] [place] [address] Apr, [facility] [place] [facility] [address] [id number] [place] [address] Mar, [facility] [place] [facility] [address] [id number] [place] [address] Mar, [facility] [place] [facility] [address] [id number] [place] [address] Mar, [facility] [place] [facility] [address] [id number] [place] [address] Mar, [facility] [place] [facility] [address] [id number] [place] [address] Feb, [facility] [place] [facility] [address] [id number] [place] [address] Feb, [facility] [place] [facility] [address] [id number] [place] [address] Feb, [facility] [place] [facility] [address] [id number] [place] [address] Feb, [facility] [place] [facility] [address] [id number] [place] [address] 16 Feb, 2013 [facility] [place] [facility] [address] [id number] [place] [address] Feb, [facility] [address] [id number] [place] [address] Jan, [facility] [place] [facility] [address] [id number] [place] [address] Jan, [facility] [place] [facility] [address] [id number] [place] [address] Dec, [facility] [place] [facility] [address] [id number] [place] [address] Dec, [facility] [place] [facility] [address] [id number] [place] [address] Nov, [facility] [place] [facility] [address] [id number] [place] [address] Nov, [facility] [place] [facility] [address] [id number] [place] [address] Oct, [facility] [place] [facility] [address] [id number], [place] [address] Sep, [facility] [place] [facility] [address] [id number] [place] [address] August, [facility] [place] [facility] [address] [id number] [place] [address] Jul, [facility] [place] [facility] [address] [id number], [place] [address] Jul, [facility] [place] [facility] [address] [id number], [place] [address] Jul, [facility] [place] [facility] [address] [id number] [place] [address] Jul, [facility] [place] [facility] [address] [id number], [place] [address] Jul, [facility] [place] [facility] [address] [id number] [place] [address] Jun, [facility] [place] [facility] [address] [id number] [place] [address] May, [facility] [address] [id number] [place] [address] Apr, [facility] [place] [facility] [address] [id number] [place] [address] Mar, [facility] [address] [id number] [place] [address] Mar, [facility] [place] [facility] [address] [id number] [place] [address] Mar, [facility] [address] [id number] [place] [address] Jan, [facility] [place] [facility] [address] [id number] [place] [address] Jan, [facility] [address] [id number] [place] [address] Jan, [facility] [address] [id number] [place] [address] Jan, [facility] [place] [facility] [address] [id number] [place] [address] Dec, [facility] [address] [id number] [place] [address] Dec, [facility] [place] [facility] [address] [id number] [place] [address] Nov, [facility] [place] [facility] [address] [id number] [place] [address] Nov, [facility] [place] [facility] [address] [id number] [place] [address] Nov, [facility] [place] [facility] [address] [id number] [place] [address] Nov, [facility] [place] [facility] [address] [id number] [place] [address] Nov, [facility] [place] [facility] [address] [id number] [place] [address] Oct, [facility] [place] [facility] [address] [id number] [place] [address] Oct, [facility] [place] [facility] [address] [id number] [place] [address] Oct, [facility] [place] [facility] [address] [id number] [place] [address] Sep, [facility] [address] [id number] [place] [address] August, [facility] [place] [facility] [address] [id number] [place] [address] Jul, [facility] [place] [facility] [address] [id number] [place] [address] Jul, [facility] [address] [id number] [place] [address] Jul, [facility] [place] [facility] [address] [id number] [place] [address] Jul, [facility] [place] [facility] [address] [id number] [place] [address] Jun, [facility] [place] [facility] [address] [id number] [place] [address] Jun, [facility] [place] [facility] [address] [id number] [place] [address] Jun, [facility] [place] [facility] [address] [id number] [place] [address] Jun, [facility] [place] [facility] [address] [id number] [place] [address] Jun, [facility] [place] [facility] [address] [id number] [place] [address] May, [facility] [place] [facility] [address] [id number], [place] [address] 28 May, 2011 [facility] [address] [facility] [id number] [place] [address] May, [facility] [address] [facility] [id number] [place] [address] May, [facility] [address] [facility] [id number] [place] [address] Apr, [facility] [address] [facility] [id number] [place] [address] Mar, [facility] [address] [facility] [id number] [place] [address] Mar, [facility] [address] [facility] [id number] [place] [address] Jun, [facility] [address] [id number], [place] [address] Feb, [facility] [address] [facility] [id number], [place] [address] Jan, [facility] [address] [facility] [id number] [place] [address] Jan, [facility] [address] [facility] [id number], [place] [address] Jan, [facility] [address] [id number] [id number] Dec, [facility] [address] [facility] [id number], [place] [address] May, [facility] [address] [facility] [id number], [place] [address] Feb, [facility] [address] [facility] [id number], [place] [address] Feb, [facility] [address] [facility] [id number], [place] [address] Feb, IMMUNIZATIONS No Known Immunizations SOCIAL HISTORY Never Assessed REASON FOR VISIT PLAN OF CARE VITAL SIGNS MEDICATIONS Medication Instructions Dosage Frequency Start Date End Date Duration Status Cymbalta 60 mg Orally Once a day 1 capsule 24h May, 30 days Active RESULTS No Results PROCEDURES [...]
--- OUTSIDE RECORDS SUMMARY | 2018-11-21 22:08 | XMS REPORT ---
Author Author LYNN SOTO Organization [facility] Address [address] [place] [address] Care Team Providers Care Pediatric Intensive Physician Name Role Phone LYNN SOTO Unavailable PROBLEMS Type Condition ICD9-CM Code TIS80-UX Code Onset Dates Condition Status SNOMED Code Problem Generalized anxiety disorder F41.1 Active 70519450 Problem Hypercholesterolemia E78.00 Active 10475713 Problem Body mass index (BMI) of 32.0-32.9 in adult Z68.32 Active 860114560 Problem Chronic obstructive pulmonary disease, unspecified COPD type J44.9 Active 64491339 Problem Insomnia G47.00 Active 791802507 Problem Other depression F32.89 Active 926750594 Problem Facet arthropathy, lumbar M46.96 Active 528846714 Problem Lumbar spondylosis M47.816 Active 875036762 Problem Lumbago with sciatica, unspecified side M54.40 Active 89579606 Problem Other obesity due to excess calories E66.09 Active 531468025 Problem COPD exacerbation J44.1 Active 834091040 Problem Other chronic pain G89.29 Active 23034432 Problem Restless legs G25.81 Active 28683677 Problem Constipation due to outlet dysfunction K59.02 Active 05631917 Problem COPD (chronic obstructive pulmonary disease) J44.9 Active 48815424 Problem Depression F32.9 Active 89551537 Problem Anxiety F41.9 Active 22344307 Problem Gastroesophageal reflux disease with esophagitis K21.0 Active 315261821 Problem Essential hypertension I10 Active 64645700 Problem Severe episode of recurrent major depressive disorder, without psychotic features F33.2 Active 54163461 Problem Major depressive disorder, recurrent episode, moderate with anxious distress F33.1 Active 484263967 Problem Psychophysiological insomnia F51.04 Active [id number] ALLERGIES No Information ENCOUNTERS Encounter Location Date Diagnosis [facility] [address] [facility] [id number] [address] Sep, Pain aggravated by standing R52 [facility] [id number] [place] [address] Sep, Other depression F32.89 [place] [id number] [place] [address] Sep, Chronic obstructive pulmonary disease, unspecified COPD type J44.9 ; Pain aggravated by standing R52 ; Other depression F32.89 ; Major depressive disorder, recurrent episode, moderate with anxious distress F33.1 ; Restless legs G25.81 ; Insomnia G47.00 ; Gastroesophageal reflux disease with esophagitis K21.0 ; Essential hypertension I10 ; Generalized anxiety disorder F41.1 and Hypercholesterolemia E78.00 [place] [address] [address] Jul, Fever, unspecified fever cause R50.9 and Cough R05 [place] [address] [address] Jul, [place] [address] [address] Jul, Gastroesophageal reflux disease with esophagitis K21.0 [place] [address] [address] Jul, [place] [address] [address] Jun, COPD (chronic obstructive pulmonary disease) J44.9 ; Restless legs G25.81 ; Insomnia G47.00 ; Essential hypertension I10 ; Major depressive disorder, recurrent episode, moderate with anxious distress F33.1 ; Gastroesophageal reflux disease with esophagitis K21.0 ; Constipation due to outlet dysfunction K59.02 ; Hypercholesterolemia E78.00 ; Other chronic pain G89.29 and Generalized abdominal pain R10.84 [facility] [id number] [place] [address] Jun, [place] [address] [address] Jun, Acute recurrent sinusitis, unspecified location J01.91 and COPD exacerbation J44.1 [place] [address] [place] [address] Jun, Lumbago with sciatica, unspecified side M54.40 [place] [address] [address] May, [place] [id number] [place] [address] May, Severe episode of recurrent major depressive disorder, without psychotic features F33.2 [place] [id number] [place] [address] Apr, COPD (chronic obstructive pulmonary disease) J44.9 [...] index (BMI) of 32.0-32.9 in adult Z68.32 [place] [id number] [place] [address] Apr, Severe episode of recurrent major depressive disorder, without psychotic features F33.2 [place] [address] [place] [address] Feb, Severe episode of recurrent major depressive disorder, without psychotic features F33.2 and Restless legs G25.81 [place] [address] [address] Feb, Severe episode of recurrent major depressive disorder, without psychotic features F33.2 ; Generalized anxiety disorder F41.1 and Psychophysiological insomnia F51.04 [place] [address] [place] [address] Dec, Severe episode of recurrent major depressive disorder, without psychotic features F33.2 ; Generalized anxiety disorder F41.1 and Psychophysiological insomnia F51.04 [place] [id number] [place] [address] Nov, Severe episode of recurrent major depressive disorder, without psychotic features F33.2 ; Generalized anxiety disorder F41.1 and Psychophysiological insomnia F51.04 [place] [address] [address] Nov, [place] [address] [address] Nov, Depression F32.9 [place] [address] [address] Nov, Depression F32.9 ; Insomnia G47.00 and Anxiety F41.9 [place] [address] [address] August, COPD (chronic obstructive pulmonary disease) J44.9 ; Depression F32.9 ; Anxiety F41.9 ; Major depressive disorder, recurrent episode, moderate with anxious distress F33.1 ; Insomnia G47.00 ; Restless legs G25.81 ; Essential hypertension I10 and Pure hypercholesterolemia E78.00 [place] [address] [address] August, Acute intractable tension-type headache G44.201 [facility] [address] [address] Jul, Left wrist pain M25.532 and Strain of left wrist, initial encounter S66.912A [place] [id number] [place] [address] 14 May, 2016 Gastroesophageal reflux disease with esophagitis K21.0 and Anxiety F41.9 [facility] [id number] [place] [address] 13 May, 2016 Major depressive disorder, recurrent episode, moderate with anxious distress F33.1 ; COPD (chronic obstructive pulmonary disease) J44.9 ; Restless legs G25.81 ; Insomnia G47.00 ; Essential hypertension I10 ; Anxiety F41.9 ; Constipation due to outlet dysfunction K59.02 ; Torsion of intestine, bowel or colon K56.2 ; Hypercholesterolemia E78.00 and Gastroesophageal reflux disease with esophagitis K21.0 [place] [id number] [place] [address] 07 Feb, 2016 [place] [address] [address] 20 Dec, 2015 Essential hypertension I10 ; Depression F32.9 ; Anxiety F41.9 ; Constipation due to outlet dysfunction K59.02 ; Torsion of intestine, bowel or colon K56.2 ; COPD (chronic obstructive pulmonary disease) J44.9 ; Insomnia G47.00 ; Restless legs G25.81 and Gastroesophageal reflux disease with esophagitis K21.0 [place] [id number] [place] [address] 08 Dec, 2015 Essential hypertension I10 ; Major depressive disorder, recurrent episode, moderate with anxious distress F33.1 ; COPD (chronic obstructive pulmonary disease) J44.9 ; Restless legs G25.81 ; Insomnia G47.00 ; Constipation due to outlet dysfunction K59.02 and Gastroesophageal reflux disease without esophagitis K21.9 [place] [id number] [place] [address] 07 Dec, 2015 Major depressive disorder, recurrent episode, moderate with anxious distress F33.1 [place] [id number] [place] [address] Sep, [place] [id number] [place] [address] 23 Sep, 2015 Nausea R11.0 [place] [id number] [place] [address] 15 Sep, 2015 Lower abdominal pain R10.30 ; COPD (chronic obstructive pulmonary disease) J44.9 ; Restless legs G25.81 ; Essential hypertension I10 ; Depression F32.9 ; Other chronic pain G89.29 ; Lumbago with sciatica, unspecified side M54.40 and Primary insomnia F51.01 [place] [id number] [place] [address] August, [place] [address] [address] August, COPD (chronic obstructive pulmonary disease) J44.9 ; Insomnia G47.00 ; Depression F32.9 and Constipation due to outlet dysfunction K59.02 [place] [id number] [place] [address] August, [place] [address] [address] August, [place] [address] [address] August, Nausea & vomiting R11.2 [place] [address] [address] Jun, [place] [id number] [place] [address] Jun, Unspecified abdominal pain R10.9 ; Depression, major, recurrent, moderate 296.32 ; COPD (chronic obstructive pulmonary disease) J44.9 ; Restless legs G25.81 ; Insomnia G47.00 ; Intestinal abscess K63.0 ; HTN (hypertension) I10 and Hypercholesteremia E78.0 [place] [id number] [place] [address] Jun, Intestinal abscess K63.0 [place] [id number] [place] [address] May, [place] [id number] [place] [address] May, [place] [id number] [place] [address] May, Unspecified abdominal pain R10.[id number] [place] [address] 08 May, 2015 Depression, major, recurrent, moderate 296.32 ; COPD (chronic obstructive pulmonary disease) J44.9 ; Restless legs G25.81 ; Insomnia G47.00 ; Depression F32.9 ; HTN (hypertension) I10 and Hypercholesterolemia E78.[address] [address] Apr, [place] [address] [address] Mar, Cellulitis L03.[address] [address] Feb, Recurrent major depression-severe F33.[address] [address] Feb, Hyperlipemia E78.5 and High blood pressure I10 [address] [address] Feb, COPD (chronic obstructive pulmonary disease) J44.9 ; Restless legs G25.81 ; Insomnia G47.00 ; Depression F32.9 and HTN (hypertension) I10 [place] [id number] [place] [address] Jan, [address] [address] Jan, Generalized anxiety disorder F41.1 and Recurrent major depression- severe F33.[address] [address] Jan, Bronchitis J40 [address] [address] Jan, Shoulder pain, right M25.511 and Low back pain M54.[address] [address] Jan, [facility] [address] [address] Oct, [facility] [id number] [place] [address] Oct, Generalized anxiety disorder 300.02 and Depression, major, severe recurrence 296.33 [facility] [id number] [place] [address] Oct, [facility] [id number] [place] [address] Oct, Depression, major, recurrent, moderate 296.32 [facility] [id number] [place] [address] August, [facility] [id number] [place] [address] Jul, [facility] [id number] [place] [address] Jul, [facility] [id number] [place] [address] Jun, [facility] [id number] [place] [address] Jun, [facility] [id number] [place] [address] May, [facility] [id number] [place] [address] May, [facility] [address] [address] May, [facility] [id number] [place] [address] May, [facility] [address] [address] May, [facility] [id number] [place] [address] May, 2014 [facility] [place] [facility] [address] [id number] [place] [address] May, 2014 [facility] [place] [facility] [address] [id number] [place] [address] May, 2014 [facility] [place] [facility] [address] [id number] [place] [address] May, 2014 [facility] [place] [facility] [address] [id number] [place] [address] May, 2014 [facility] [place] [facility] [address] [id number] [place] [address] May, 2014 [facility] [place] [facility] [address] [id number] [place] [address] May, 2014 [facility] [place] [facility] [address] [id number] [place] [address] Apr, [facility] [place] [facility] [address] [id number] [place] [address] Apr, [facility] [place] [facility] [address] [id number] [place] [address] Apr, [facility] [place] [facility] [address] [id number] [place] [address] Apr, [facility] [place] [facility] [address] [id number] [place] [address] Apr, [facility] [place] [facility] [address] [id number] [place] [address] Apr, [facility] [place] [facility] [address] [id number] [place] [address] Apr, [facility] [place] [facility] [address] [id number] [place] [address] Apr, [facility] [place] [facility] [address] [id number] [place] [address] Apr, [facility] [place] [facility] [address] [id number] [place] [address] Apr, [facility] [place] [facility] [address] [id number] [place] [address] Mar, [facility] [place] [facility] [address] [id number] [place] [address] Mar, [facility] [place] [facility] [address] [id number] [place] [address] Mar, [facility] [place] [facility] [address] [id number] [place] [address] Mar, [facility] [place] [facility] [address] [id number] [place] [address] Mar, [facility] [place] [facility] [address] [id number] [place] [address] Feb, [facility] [place] [facility] [address] [id number] [place] [address] Feb, [facility] [place] [facility] [address] [id number] [place] [address] Dec, [facility] [place] [facility] [address] [id number] [place] [address] Dec, [facility] [place] [facility] [address] [id number] [place] [address] Nov, [facility] [place] [facility] [address] [id number] [place] [address] Nov, [facility] [place] [facility] [address] [id number] [place] [address] Nov, [facility] [place] [facility] [address] [id number] [place] [address] Nov, [facility] [place] [facility] [address] [id number] [place] [address] Oct, [facility] [place] [facility] [address] [id number] [address] Oct, [facility] [address] [id number] [place] [address] Sep, [facility] [place] [facility] [address] [id number] [place] [address] Sep, [facility] [place] [facility] [address] [id number] [place] [address] August, [facility] [place] [facility] [address] [id number] [place] [address] August, [facility] [place] [facility] [address] [id number] [place] [address] August, [facility] [place] [facility] [address] [id number] [place] [address] August, [facility] [place] [facility] [address] [facility] [id number] [place] [address] Jul, [facility] [place] [facility] [address] [id number] [place] [address] Jul, [facility] [place] [facility] [address] [id number] [place] [address] Jun, [facility] [place] [facility] [address] [id number] [place] [address] Jun, [facility] [place] [facility] [address] [id number] [place] [address] May, [facility] [place] [facility] [address] [id number] [place] [address] May, [facility] [place] [facility] [address] [id number] [place] [address] May, [facility] [place] [facility] [address] [id number] [place] [address] May, [facility] [place] [facility] [address] [facility] [id number] [place] [address] May, [facility] [place] [facility] [address] [id number] [place] [address] May, [facility] [place] [facility] [address] [id number] [place] [address] May, [facility] [place] [facility] [address] [id number] [place] [address] Apr, [facility] [place] [facility] [address] [id number] [place] [address] Apr, [facility] [address] [id number] [place] [address] Apr, [facility] [place] [facility] [address] [id number] [place] [address] Apr, [facility] [address] [id number] [place] [address] Apr, [facility] [address] [id number] [place] [address] Apr, [facility] [address] [id number] [place] [address] Apr, [facility] [place] [facility] [address] [id number] [place] [address] Apr, [facility] [place] [facility] [address] [id number] [place] [address] Apr, [facility] [place] [facility] [address] [id number] [place] [address] Apr, [facility] [place] [facility] [address] [id number] [place] [address] Mar, [facility] [place] [facility] [address] [id number] [place] [address] Mar, [facility] [place] [facility] [address] [id number] [place] [address] Mar, [facility] [place] [facility] [address] [id number] [address] Mar, [facility] [place] [facility] [address] [id number] [place] [address] Feb, [facility] [place] [facility] [address] [id number] [place] [address] Feb, [facility] [place] [facility] [address] [id number] [place] [address] Feb, [facility] [place] [facility] [address] [id number] [place] [address] Feb, [facility] [place] [facility] [address] [id number] [place] [address] Feb, [facility] [place] [facility] [address] [id number] [place] [address] Feb, [facility] [place] [facility] [address] [id number] [place] [address] Jan, [facility] [place] [facility] [address] [id number] [place] [address] Jan, [facility] [place] [facility] [address] [id number] [place] [address] Dec, [facility] [place] [facility] [address] [id number] [place] [address] Dec, [facility] [place] [facility] [address] [id number], [place] [address] Nov, [facility] [place] [facility] [address] [id number], [place] [address] Nov, [facility] [place] [facility] [address] [id number] [place] [address] Oct, [facility] [place] [facility] [address] [id number] [place] [address] Sep, [facility] [place] [facility] [address] [id number] [place] [address] August, [facility] [place] [facility] [address] [id number] [place] [address] 30 Jul, 2012 [facility] [address] [id number] [place] [address] 14 Jul, 2012 [facility] [address] [id number] [place] [address] 10 Jul, 2012 [facility] [address] [id number] [place] [address] 05 Jul, 2012 [facility] [address] [id number] [place] [address] 05 Jul, 2012 [facility] [address] [id number] [place] [address] Jun, [facility] [address] [id number] [place] [address] May, [facility] [address] [id number] [place] [address] Apr, [facility] [address] [id number] [place] [address] Mar, [facility] [address] [id number] [place] [address] Mar, [facility] [address] [facility] [id number] [place] [address] Mar, [facility] [address] [id number] [place] [address] Jan, [facility] [address] [id number] [place] [address] Jan, [facility] [place] [facility] [address] [id number] [place] [address] Jan, [facility] [address] [id number] [place] [address] Jan, [facility] [address] [id number] [place] [address] Dec, [facility] [place] [facility] [address] [id number] [place] [address] Dec, [facility] [place] [facility] [address] [id number] [place] [address] Nov, [facility] [place] [facility] [address] [id number] [place] [address] Nov, [facility] [place] [facility] [address] [id number] [place] [address] Nov, [facility] [place] [facility] [address] [id number] [place] [address] Nov, [facility] [place] [facility] [address] [id number] [place] [address] Nov, [facility] [place] [facility] [address] [id number] [place] [address] Oct, [facility] [place] [facility] [address] [id number] [place] [address] Oct, [facility] [place] [facility] [address] [id number] [place] [address] Oct, [facility] [place] [facility] [address] [id number] [place] [address] Sep, [facility] [place] [facility] [address] [id number] [place] [address] August, [facility] [place] [facility] [address] [id number] [place] [address] Jul, [facility] [place] [facility] [address] [id number] [place] [address] Jul, [facility] [place] [facility] [address] [id number] [place] [address] Jul, [facility] [place] [facility] [address] [id number] [place] [address] Jul, [facility] [place] [facility] [address] [id number] [place] [address] 29 Jun, 2011 [facility] [address] [id number] [place] [address] 28 Jun, 2011 [facility] [place] [facility] [address] [id number] [place] [address] 23 Jun, 2011 [facility] [place] [facility] [address] [id number] [place] [address] 21 Jun, 2011 [facility] [place] [facility] [address] [id number] [place] [address] 15 Jun, 2011 [facility] [place] [facility] [address] [id number] [place] [address] 28 May, 2011 [facility] [place] [facility] [address] [id number] [place] [address] 28 May, 2011 [facility] [place] [facility] [address] [id number] [place] [address] 27 May, 2011 [facility] [place] [facility] [address] [id number] [place] [address] 24 May, 2011 [facility] [place] [facility] [address] [id number] [place] [address] Apr, [facility] [place] [facility] [address] [facility] [id number] [place] [address] 28 Mar, 2011 [facility] [place] [facility] [address] [id number] [place] [address] 12 Mar, 2011 [facility] [place] [facility] [address] [id number] [place] [address] 17 Jun, 2010 [facility] [place] [facility] [address] [id number] [place] [address] 08 Feb, 2010 [facility] [place] [facility] [address] [id number] [place] [address] 26 Jan, 2010 [facility] [place] [facility] [address] [id number] [place] [address] Jan, [facility] [address] [id number] [address] Jan, [facility] [address] [id number] [address] Dec, [facility] [address] [id number] [address] May, [facility] [id number] [address] Feb, [facility] [address] [id number] [address] Feb, [facility] [id number] [address] Feb, IMMUNIZATIONS No Known Immunizations SOCIAL HISTORY [...]
--- OUTSIDE RECORDS SUMMARY | 2018-11-21 22:09 | XMS REPORT ---
Author Author CINDY LUIS [facility] Address [address] [place] [address] Care Team Providers Care Staff Anesthetist Name Role Phone CINDYLUIS Unavailable PROBLEMS Type Condition ICD9-CM Code PIO74-VG Code Onset Dates Condition Status SNOMED Code Problem Generalized anxiety disorder F41.1 Active 01846623 Problem Hypercholesterolemia E78.00 Active 21093522 Problem Body mass index (BMI) of 32.0-32.9 in adult Z68.32 Active 669020988 Problem Chronic obstructive pulmonary disease, unspecified COPD type J44.9 Active 67047808 Problem Insomnia G47.00 Active 421445931 Problem Other depression F32.89 Active 408116260 Problem Facet arthropathy, lumbar M46.96 Active 896654285 Problem Lumbar spondylosis M47.816 Active 690155524 Problem Lumbago with sciatica, unspecified side M54.40 Active 05177373 Problem Other obesity due to excess calories E66.09 Active 170713045 Problem COPD exacerbation J44.1 Active 321053796 Problem Other chronic pain G89.29 Active 82132236 Problem Restless legs G25.81 Active 36657841 Problem Constipation due to outlet dysfunction K59.02 Active 00711171 Problem COPD (chronic obstructive pulmonary disease) J44.9 Active 67922735 Problem Depression F32.9 Active 62445797 Problem Anxiety F41.9 Active 53731026 Problem Gastroesophageal reflux disease with esophagitis K21.0 Active 330289112 Problem Essential hypertension I10 Active 75394809 Problem Severe episode of recurrent major depressive disorder, without psychotic features F33.2 Active 02317003 Problem Major depressive disorder, recurrent episode, moderate with anxious distress F33.1 Active 715403095 Problem Psychophysiological insomnia F51.04 Active 102143050 ALLERGIES No Information ENCOUNTERS Encounter Location Date Diagnosis [facility] [address] [facility] [id number] [address] Sep, Pain aggravated by standing R52 [facility] [id number] [place] [address] Sep, Other depression F32.89 [facility] [id number] [place] [address] Sep, Chronic obstructive pulmonary disease, unspecified COPD type J44.9 ; Pain aggravated by standing R52 ; Other depression F32.89 ; Major depressive disorder, recurrent episode, moderate with anxious distress F33.1 ; Restless legs G25.81 ; Insomnia G47.00 ; Gastroesophageal reflux disease with esophagitis K21.0 ; Essential hypertension I10 ; Generalized anxiety disorder F41.1 and Hypercholesterolemia E78.00 [place] [id number] [place] [address] Jul, Fever, unspecified fever cause R50.9 and Cough R05 [place] [address] [address] Jul, [place] [id number] [place] [address] Jul, Gastroesophageal reflux disease with esophagitis K21.0 [place] [id number] [place] [address] Jul, [place] [id number] [place] [address] Jun, COPD (chronic obstructive pulmonary disease) J44.9 ; Restless legs G25.81 ; Insomnia G47.00 ; Essential hypertension I10 ; Major depressive disorder, recurrent episode, moderate with anxious distress F33.1 ; Gastroesophageal reflux disease with esophagitis K21.0 ; Constipation due to outlet dysfunction K59.02 ; Hypercholesterolemia E78.00 ; Other chronic pain G89.29 and Generalized abdominal pain R10.84 [place] [id number] [place] [address] Jun, [place] [address] [address] Jun, Acute recurrent sinusitis, unspecified location J01.91 and COPD exacerbation J44.1 [place] [id number] [place] [address] Jun, Lumbago with sciatica, unspecified side M54.40 [place] [id number] [place] [address] May, [place] [address] [address] May, Severe episode of recurrent major depressive disorder, without psychotic features F33.[address] [address] Apr, COPD (chronic obstructive pulmonary disease) J44.9 [...] index (BMI) of 32.0-32.9 in adult Z68.32 [place] [id number] [place] [address] Apr, Severe episode of recurrent major depressive disorder, without psychotic features F33.2 [place] [id number] [place] [address] Feb, Severe episode of recurrent major depressive disorder, without psychotic features F33.2 and Restless legs G25.81 [place] [id number] [place] [address] Feb, Severe episode of recurrent major depressive disorder, without psychotic features F33.2 ; Generalized anxiety disorder F41.1 and Psychophysiological insomnia F51.04 [place] [address] [place] [address] Dec, Severe episode of recurrent major depressive disorder, without psychotic features F33.2 ; Generalized anxiety disorder F41.1 and Psychophysiological insomnia F51.04 [place] [id number] [place] [address] Nov, Severe episode of recurrent major depressive disorder, without psychotic features F33.2 ; Generalized anxiety disorder F41.1 and Psychophysiological insomnia F51.04 [place] [address] [address] Nov, [place] [address] [address] Nov, Depression F32.9 [place] [address] [address] Nov, Depression F32.9 ; Insomnia G47.00 and Anxiety F41.9 [place] [address] [address] August, COPD (chronic obstructive pulmonary disease) J44.9 ; Depression F32.9 ; Anxiety F41.9 ; Major depressive disorder, recurrent episode, moderate with anxious distress F33.1 ; Insomnia G47.00 ; Restless legs G25.81 ; Essential hypertension I10 and Pure hypercholesterolemia E78.00 [place] [id number] [place] [address] August, Acute intractable tension-type headache G44.201 [facility] [id number] [place] [address] Jul, Left wrist pain M25.532 and Strain of left wrist, initial encounter S66.912A [place] [id number] [place] [address] 14 May, 2016 Gastroesophageal reflux disease with esophagitis K21.0 and Anxiety F41.9 [place] [id number] [place] [address] 13 May, 2016 Major depressive disorder, recurrent episode, moderate with anxious distress F33.1 ; COPD (chronic obstructive pulmonary disease) J44.9 ; Restless legs G25.81 ; Insomnia G47.00 ; Essential hypertension I10 ; Anxiety F41.9 ; Constipation due to outlet dysfunction K59.02 ; Torsion of intestine, bowel or colon K56.2 ; Hypercholesterolemia E78.00 and Gastroesophageal reflux disease with esophagitis K21.0 [place] [id number] [place] [address] 07 Feb, 2016 [place] [id number] [place] [address] 20 Dec, 2015 Essential hypertension I10 ; Depression F32.9 ; Anxiety F41.9 ; Constipation due to outlet dysfunction K59.02 ; Torsion of intestine, bowel or colon K56.2 ; COPD (chronic obstructive pulmonary disease) J44.9 ; Insomnia G47.00 ; Restless legs G25.81 and Gastroesophageal reflux disease with esophagitis K21.0 [place] [id number] [place] [address] 08 Dec, 2015 Essential hypertension I10 ; Major depressive disorder, recurrent episode, moderate with anxious distress F33.1 ; COPD (chronic obstructive pulmonary disease) J44.9 ; Restless legs G25.81 ; Insomnia G47.00 ; Constipation due to outlet dysfunction K59.02 and Gastroesophageal reflux disease without esophagitis K21.9 [place] [address] [place] [address] 07 Dec, 2015 Major depressive disorder, recurrent episode, moderate with anxious distress F33.1 [place] [id number] [place] [address] Sep, [place] [id number] [place] [address] Sep, Nausea R11.0 [place] [id number] [place] [address] 15 Sep, 2015 Lower abdominal pain R10.30 ; COPD (chronic obstructive pulmonary disease) J44.9 ; Restless legs G25.81 ; Essential hypertension I10 ; Depression F32.9 ; Other chronic pain G89.29 ; Lumbago with sciatica, unspecified side M54.40 and Primary insomnia F51.01 [place] [id number] [place] [address] August, [facility] [id number] [place] [address] August, COPD (chronic obstructive pulmonary disease) J44.9 ; Insomnia G47.00 ; Depression F32.9 and Constipation due to outlet dysfunction K59.02 [facility] [id number] [place] [address] August, [place] [address] [address] August, [place] [address] [address] August, Nausea & vomiting R11.2 [place] [address] [address] Jun, [place] [id number] [place] [address] Jun, Unspecified abdominal pain R10.9 ; Depression, major, recurrent, moderate 296.32 ; COPD (chronic obstructive pulmonary disease) J44.9 ; Restless legs G25.81 ; Insomnia G47.00 ; Intestinal abscess K63.0 ; HTN (hypertension) I10 and Hypercholesteremia E78.0 [place] [id number] [place] [address] Jun, Intestinal abscess K63.0 [facility] [id number] [place] [address] May, [facility] [id number] [place] [address] May, [facility] [id number] [place] [address] May, Unspecified abdominal pain R10.9 [place] [id number] [place] [address] 08 May, 2015 Depression, major, recurrent, moderate 296.32 ; COPD (chronic obstructive pulmonary disease) J44.9 ; Restless legs G25.81 ; Insomnia G47.00 ; Depression F32.9 ; HTN (hypertension) I10 and Hypercholesterolemia E78.[address] [address] Apr, [place] [address] [address] Mar, Cellulitis L03.[address] [address] Feb, Recurrent major depression-severe F33.[address] [address] Feb, Hyperlipemia E78.5 and High blood pressure I10 [address] [address] Feb, COPD (chronic obstructive pulmonary disease) J44.9 ; Restless legs G25.81 ; Insomnia G47.00 ; Depression F32.9 and HTN (hypertension) I10 [place] [address] [address] Jan, [place] [address] [address] Jan, Generalized anxiety disorder F41.1 and Recurrent major depression- severe F33.[address] [address] Jan, Bronchitis J40 [place] [address] [address] Jan, Shoulder pain, right M25.511 and Low back pain M54.5 [place] [address] [address] Jan, [facility] [address] [address] Oct, [facility] [id number] [place] [address] Oct, Generalized anxiety disorder 300.02 and Depression, major, severe recurrence 296.33 [facility] [id number] [place] [address] Oct, [facility] [id number] [place] [address] Oct, Depression, major, recurrent, moderate 296.32 [facility] [id number] [place] [address] August, [facility] [id number] [place] [address] Jul, [facility] [id number] [place] [address] Jul, [facility] [address] [address] Jun, [facility] [address] [place] [address] Jun, [facility] [address] [address] May, [facility] [address] [address] May, [facility] [address] [address] May, [facility] [address] [address] May, [facility] [address] [address] May, [facility] [id number] [place] [address] May, 2014 [facility] [place] [facility] [address] [id number] [place] [address] May, 2014 [facility] [place] [facility] [address] [id number] [place] [address] May, 2014 [facility] [place] [facility] [address] [id number] [place] [address] May, 2014 [facility] [place] [facility] [address] [id number] [place] [address] May, 2014 [facility] [place] [facility] [address] [id number] [place] [address] May, 2014 [facility] [place] [facility] [address] [id number] [place] [address] May, 2014 [facility] [place] [facility] [address] [id number] [place] [address] Apr, [facility] [place] [facility] [address] [id number] [place] [address] Apr, [facility] [place] [facility] [address] [id number] [place] [address] Apr, [facility] [place] [facility] [address] [id number] [place] [address] Apr, [facility] [place] [facility] [address] [id number] [place] [address] Apr, [facility] [place] [facility] [address] [id number] [place] [address] Apr, [facility] [place] [facility] [address] [id number] [place] [address] Apr, [facility] [place] [facility] [address] [id number] [place] [address] Apr, [facility] [place] [facility] [address] [id number] [place] [address] Apr, [facility] [place] [facility] [address] [id number] [place] [address] Apr, [facility] [place] [facility] [address] [id number] [place] [address] Mar, [facility] [place] [facility] [address] [id number] [place] [address] Mar, [facility] [place] [facility] [address] [id number] [place] [address] Mar, [facility] [place] [facility] [address] [id number] [place] [address] Mar, [facility] [place] [facility] [address] [id number] [place] [address] Mar, [facility] [place] [facility] [address] [id number] [place] [address] Feb, [facility] [place] [facility] [address] [id number] [place] [address] Feb, [facility] [place] [facility] [address] [id number] [place] [address] Dec, [facility] [place] [facility] [address] [id number] [place] [address] Dec, [facility] [place] [facility] [address] [id number] [place] [address] Nov, [facility] [place] [facility] [address] [id number] [place] [address] Nov, [facility] [place] [facility] [address] [id number] [place] [address] Nov, [facility] [place] [facility] [address] [id number] [place] [address] Nov, [facility] [place] [facility] [address] [id number] [place] [address] Oct, [facility] [place] [facility] [address] [id number] [place] [address] Oct, [facility] [place] [facility] [address] [id number] [place] [address] Sep, [facility] [place] [facility] [address] [id number] [place] [address] Sep, [facility] [place] [facility] [address] [id number] [place] [address] August, [facility] [place] [facility] [address] [id number] [place] [address] August, [facility] [place] [facility] [address] [id number] [place] [address] August, [facility] [place] [facility] [address] [id number] [place] [address] August, [facility] [place] [facility] [address] [id number] [place] [address] Jul, [facility] [place] [facility] [address] [id number] [place] [address] Jul, [facility] [place] [facility] [address] [id number] [place] [address] Jun, [facility] [place] [facility] [address] [facility] [id number] [place] [address] Jun, [facility] [place] [facility] [address] [id number] [place] [address] May, [facility] [place] [facility] [address] [id number] [place] [address] May, [facility] [place] [facility] [address] [id number] [place] [address] May, [facility] [place] [facility] [address] [id number] [place] [address] May, [facility] [place] [facility] [address] [id number] [place] [address] May, [facility] [address] [id number] [place] [address] May, [facility] [place] [facility] [address] [id number] [place] [address] May, [facility] [place] [facility] [address] [id number] [place] [address] Apr, [facility] [place] [facility] [address] [id number] [place] [address] Apr, [facility] [place] [facility] [address] [id number] [place] [address] Apr, [facility] [place] [facility] [address] [id number] [place] [address] Apr, [facility] [place] [facility] [address] [id number] [place] [address] Apr, [facility] [place] [facility] [address] [id number] [place] [address] Apr, [facility] [place] [facility] [address] [id number] [place] [address] Apr, [facility] [place] [facility] [address] [id number] [place] [address] Apr, [facility] [place] [facility] [address] [id number] [place] [address] Apr, [facility] [place] [facility] [address] [id number] [address] Apr, [facility] [place] [facility] [address] [id number] [place] [address] Mar, [facility] [place] [facility] [address] [id number] [place] [address] Mar, [facility] [place] [facility] [address] [id number] [place] [address] Mar, [facility] [place] [facility] [address] [id number] [place] [address] 16 Mar, 2013 [facility] [place] [facility] [address] [id number] [place] [address] Feb, [facility] [place] [facility] [address] [id number] [place] [address] Feb, [facility] [place] [facility] [address] [id number] [place] [address] Feb, [facility] [place] [facility] [address] [id number] [place] [address] Feb, [facility] [place] [facility] [address] [id number] [place] [address] Feb, [facility] [place] [facility] [address] [id number] [place] [address] Feb, [facility] [place] [facility] [address] [id number] [place] [address] Jan, [facility] [place] [facility] [address] [id number] [place] [address] Jan, [facility] [place] [facility] [address] [id number] [place] [address] 05 Dec, 2012 [facility] [place] [facility] [address] [id number] [place] [address] Dec, [facility] [place] [facility] [address] [id number] [place] [address] Nov, [facility] [place] [facility] [address] [id number] [place] [address] Nov, [facility] [place] [facility] [address] [id number] [place] [address] Oct, [facility] [place] [facility] [address] [id number] [place] [address] Sep, [facility] [place] [facility] [address] [id number] [place] [address] August, [facility] [place] [facility] [address] [id number] [place] [address] 30 Jul, 2012 [facility] [place] [facility] [address] [id number] [place] [address] 14 Jul, 2012 [facility] [place] [facility] [address] [id number] [place] [address] 10 Jul, 2012 [facility] [place] [facility] [address] [id number] [place] [address] Jul, [facility] [place] [facility] [address] [id number] [place] [address] Jul, [facility] [place] [facility] [address] [id number] [place] [address] Jun, [facility] [place] [facility] [address] [id number] [place] [address] May, [facility] [address] [id number] [place] [address] Apr, [facility] [address] [id number] [place] [address] Mar, [facility] [place] [facility] [address] [id number] [place] [address] Mar, [facility] [place] [facility] [address] [id number] [place] [address] Mar, [facility] [place] [facility] [address] [id number] [place] [address] Jan, [facility] [place] [facility] [address] [id number] [place] [address] Jan, [facility] [place] [facility] [address] [id number] [place] [address] Jan, [facility] [place] [facility] [address] [id number] [place] [address] Jan, [facility] [place] [facility] [address] [id number] [place] [address] Dec, [facility] [place] [facility] [address] [id number] [place] [address] Dec, [facility] [place] [facility] [address] [id number] [place] [address] Nov, [facility] [place] [facility] [address] [id number] [place] [address] Nov, [facility] [place] [facility] [address] [id number] [place] [address] Nov, [facility] [place] [facility] [address] [id number] [place] [address] Nov, [facility] [place] [facility] [address] [id number] [place] [address] Nov, [facility] [place] [facility] [address] [id number] [place] [address] Oct, [facility] [place] [facility] [address] [id number] [place] [address] Oct, [facility] [place] [facility] [address] [id number] [place] [address] Oct, [facility] [place] [facility] [address] [id number] [place] [address] Sep, [facility] [place] [facility] [address] [id number] [place] [address] August, [facility] [place] [facility] [address] [id number] [place] [address] Jul, [facility] [place] [facility] [address] [id number] [place] [address] Jul, [facility] [place] [facility] [address] [id number] [place] [address] Jul, [facility] [place] [facility] [address] [id number] [place] [address] Jul, [facility] [place] [facility] [address] [id number] [place] [address] 29 Jun, 2011 [facility] [address] [id number] [place] [address] 28 Jun, 2011 [facility] [place] [facility] [address] [id number] [place] [address] 23 Jun, 2011 [facility] [place] [facility] [address] [id number] [place] [address] 21 Jun, 2011 [facility] [place] [facility] [address] [id number] [place] [address] 15 Jun, 2011 [facility] [place] [facility] [address] [id number] [place] [address] 28 May, 2011 [facility] [place] [facility] [address] [id number] [place] [address] 28 May, 2011 [facility] [place] [facility] [address] [id number] [place] [address] May, [facility] [place] [facility] [address] [id number] [place] [address] 24 May, 2011 [facility] [place] [facility] [address] [id number] [place] [address] Apr, [facility] [place] [facility] [address] [facility] [id number] [place] [address] Mar, [facility] [place] [facility] [address] [id number] [place] [address] Mar, [facility] [place] [facility] [address] [id number] [place] [address] 17 Jun, 2010 [facility] [place] [facility] [address] [id number] [place] [address] 08 Feb, 2010 [facility] [place] [facility] [address] [id number] [place] [address] Jan, [facility] [place] [facility] [address] [id number] [place] [address] Jan, [facility] [address] [facility] [id number] [address] Jan, [facility] [address] [id number] [address] Dec, [facility] [address] [facility] [id number] [address] May, [facility] [address] [id number] [address] Feb, [facility] [address] [facility] [id number] [address] Feb, [facility] [address] [id number] [address] Feb, IMMUNIZATIONS No Known Immunizations SOCIAL HISTORY Never Assessed REASON FOR VISIT klonopin refill PLAN OF CARE VITAL SIGNS MEDICATIONS Medication Instructions Dosage Frequency Start Date End Date Duration Status Klonopin 0.5 MG Orally Twice a day as needed 1 tablet Nov, 30 days Active RESULTS No Results PROCEDURES [...]
--- OUTSIDE RECORDS SUMMARY | 2018-11-21 22:09 | XMS REPORT ---
Author Author CINDY LUIS [facility] Address [address] [place] [address] Care Team Providers Care Collector Of Port Name Role Phone CINDYLUIS Unavailable PROBLEMS Type Condition ICD9-CM Code BIC20-PM Code Onset Dates Condition Status SNOMED Code Problem Severe episode of recurrent major depressive disorder, without psychotic features F33.2 Active 74845192 Problem Generalized anxiety disorder F41.1 Active 83469843 Problem Psychophysiological insomnia F51.04 Active 369930599 Problem COPD exacerbation J44.1 Active 111504134 Problem Lumbar spondylosis M47.816 Active 188688431 Problem Other chronic pain G89.29 Active 81661146 Problem Hypercholesterolemia E78.00 Active 27230724 Problem Body mass index (BMI) of 32.0-32.9 in adult Z68.32 Active 170585987 Problem Lumbago with sciatica, unspecified side M54.40 Active 97396961 Problem Other obesity due to excess calories E66.09 Active 391955747 Problem COPD (chronic obstructive pulmonary disease) J44.9 Active 83952959 Problem Depression F32.9 Active 65984492 Problem Facet arthropathy, lumbar M46.96 Active 601677173 Problem Insomnia G47.00 Active 800512866 Problem Essential hypertension I10 Active 30623032 Problem Major depressive disorder, recurrent episode, moderate with anxious distress F33.1 Active 626538990 Problem Restless legs G25.81 Active 04143521 Problem Anxiety F41.9 Active 94068215 Problem Constipation due to outlet dysfunction K59.02 Active 40233029 Problem Gastroesophageal reflux disease with esophagitis K21.0 Active 648305727 ALLERGIES No Known Allergies ENCOUNTERS Encounter Location Date Diagnosis [facility] [address] [facility] [id number] [address] Jul, [facility] [address] [id number] [address] Jul, Gastroesophageal reflux disease with esophagitis K21.0 [place] [facility] [id number] [place] [address] Jul, [facility] [facility] [id number] [place] [address] Jun, COPD (chronic obstructive pulmonary disease) J44.9 ; Restless legs G25.81 ; Insomnia G47.00 ; Essential hypertension I10 ; Major depressive disorder, recurrent episode, moderate with anxious distress F33.1 ; Gastroesophageal reflux disease with esophagitis K21.0 ; Constipation due to outlet dysfunction K59.02 ; Hypercholesterolemia E78.00 ; Other chronic pain G89.29 and Generalized abdominal pain R10.84 [place] [id number] [place] [address] Jun, [facility] [facility] [id number] [place] [address] Jun, Acute recurrent sinusitis, unspecified location J01.91 and COPD exacerbation J44.1 [place] [id number] [place] [address] Jun, Lumbago with sciatica, unspecified side M54.40 [facility] [id number] [place] [address] May, [place] [id number] [place] [address] 06 May, 2017 Severe episode of recurrent major depressive disorder, without psychotic features F33.2 [place] [id number] [place] [address] Apr, COPD (chronic obstructive pulmonary disease) J44.9 [...] index (BMI) of 32.0-32.9 in adult Z68.32 [place] [id number] [place] [address] Apr, Severe episode of recurrent major depressive disorder, without psychotic features F33.2 [place] [id number] [place] [address] Feb, Severe episode of recurrent major depressive disorder, without psychotic features F33.2 and Restless legs G25.81 [place] [id number] [place] [address] Feb, Severe episode of recurrent major depressive disorder, without psychotic features F33.2 ; Generalized anxiety disorder F41.1 and Psychophysiological insomnia F51.04 [place] [id number] [place] [address] Dec, Severe episode of recurrent major depressive disorder, without psychotic features F33.2 ; Generalized anxiety disorder F41.1 and Psychophysiological insomnia F51.04 [place] [id number] [place] [address] Nov, Severe episode of recurrent major depressive disorder, without psychotic features F33.2 ; Generalized anxiety disorder F41.1 and Psychophysiological insomnia F51.04 [place] [id number] [place] [address] Nov, [place] [id number] [place] [address] Nov, Depression F32.9 [place] [id number] [place] [address] Nov, Depression F32.9 ; Insomnia G47.00 and Anxiety F41.9 [place] [id number] [place] [address] August, COPD (chronic obstructive pulmonary disease) J44.9 ; Depression F32.9 ; Anxiety F41.9 ; Major depressive disorder, recurrent episode, moderate with anxious distress F33.1 ; Insomnia G47.00 ; Restless legs G25.81 ; Essential hypertension I10 and Pure hypercholesterolemia E78.00 [place] [id number] [place] [address] August, Acute intractable tension-type headache G44.201 [facility] [id number] [place] [address] Jul, Left wrist pain M25.532 and Strain of left wrist, initial encounter S66.912A [facility] [id number] [place] [address] 14 May, 2016 Gastroesophageal reflux disease with esophagitis K21.0 and Anxiety F41.9 [place] [id number] [place] [address] 13 May, 2016 Major depressive disorder, recurrent episode, moderate with anxious distress F33.1 ; COPD (chronic obstructive pulmonary disease) J44.9 ; Restless legs G25.81 ; Insomnia G47.00 ; Essential hypertension I10 ; Anxiety F41.9 ; Constipation due to outlet dysfunction K59.02 ; Torsion of intestine, bowel or colon K56.2 ; Hypercholesterolemia E78.00 and Gastroesophageal reflux disease with esophagitis K21.0 [facility] [id number] [place] [address] 07 Feb, 2016 [place] [id number] [place] [address] 20 Dec, 2015 Essential hypertension I10 ; Depression F32.9 ; Anxiety F41.9 ; Constipation due to outlet dysfunction K59.02 ; Torsion of intestine, bowel or colon K56.2 ; COPD (chronic obstructive pulmonary disease) J44.9 ; Insomnia G47.00 ; Restless legs G25.81 and Gastroesophageal reflux disease with esophagitis K21.0 [place] [address] [place] [address] 08 Dec, 2015 Essential hypertension I10 ; Major depressive disorder, recurrent episode, moderate with anxious distress F33.1 ; COPD (chronic obstructive pulmonary disease) J44.9 ; Restless legs G25.81 ; Insomnia G47.00 ; Constipation due to outlet dysfunction K59.02 and Gastroesophageal reflux disease without esophagitis K21.9 [place] [id number] [place] [address] 07 Dec, 2015 Major depressive disorder, recurrent episode, moderate with anxious distress F33.1 [place] [address] [address] 28 Sep, 2015 [place] [address] [address] 23 Sep, 2015 Nausea R11.0 [place] [address] [address] 15 Sep, 2015 Lower abdominal pain R10.30 ; COPD (chronic obstructive pulmonary disease) J44.9 ; Restless legs G25.81 ; Essential hypertension I10 ; Depression F32.9 ; Other chronic pain G89.29 ; Lumbago with sciatica, unspecified side M54.40 and Primary insomnia F51.01 [place] [id number] [place] [address] August, [place] [id number] [place] [address] August, COPD (chronic obstructive pulmonary disease) J44.9 ; Insomnia G47.00 ; Depression F32.9 and Constipation due to outlet dysfunction K59.02 [place] [id number] [place] [address] August, [place] [id number] [place] [address] August, [place] [address] [address] August, Nausea & vomiting R11.2 [place] [id number] [place] [address] Jun, [place] [address] [address] Jun, Unspecified abdominal pain R10.9 ; Depression, major, recurrent, moderate 296.32 ; COPD (chronic obstructive pulmonary disease) J44.9 ; Restless legs G25.81 ; Insomnia G47.00 ; Intestinal abscess K63.0 ; HTN (hypertension) I10 and Hypercholesteremia E78.0 [place] [id number] [place] [address] Jun, Intestinal abscess K63.0 [place] [address] [address] May, [place] [address] [address] May, [place] [address] [address] May, Unspecified abdominal pain R10.9 [place] [address] [address] May, Depression, major, recurrent, moderate 296.32 ; COPD (chronic obstructive pulmonary disease) J44.9 ; Restless legs G25.81 ; Insomnia G47.00 ; Depression F32.9 ; HTN (hypertension) I10 and Hypercholesterolemia E78.0 [place] [id number] [place] [address] Apr, [id number] [place] [address] Mar, Cellulitis L03.90 [place] [id number] [place] [address] Feb, Recurrent major depression-severe F33.2 [id number] [place] [address] Feb, Hyperlipemia E78.5 and High blood pressure I10 [address] [address] Feb, COPD (chronic obstructive pulmonary disease) J44.9 ; Restless legs G25.81 ; Insomnia G47.00 ; Depression F32.9 and HTN (hypertension) I10 [facility] [id number] [place] [address] Jan, [facility] [id number] [place] [address] Jan, Generalized anxiety disorder F41.1 and Recurrent major depression- severe F33.2 [facility] [id number] [place] [address] Jan, Bronchitis J40 [facility] [address] [address] Jan, Shoulder pain, right M25.511 and Low back pain M54.[address] [address] Jan, [facility] [address] [address] Oct, [facility] [address] [address] Oct, Generalized anxiety disorder 300.02 and Depression, major, severe recurrence 296.33 [facility] [id number] [place] [address] Oct, [facility] [id number] [place] [address] Oct, Depression, major, recurrent, moderate 296.32 [facility] [id number] [place] [address] August, [facility] [address] [address] Jul, [facility] [id number] [place] [address] Jul, [facility] [address] [address] [place] [address] Jun, [facility] [place] [facility] [address] [id number] [place] [address] Jun, [facility] [place] [facility] [address] [id number] [place] [address] May, 2014 [facility] [place] [facility] [address] [id number] [place] [address] May, 2014 [facility] [place] [facility] [address] [id number] [place] [address] May, 2014 [facility] [place] [facility] [address] [id number] [place] [address] May, 2014 [facility] [place] [facility] [address] [facility] [id number] [place] [address] May, 2014 [facility] [place] [facility] [address] [facility] [id number] [place] [address] May, 2014 [facility] [place] [facility] [address] [id number] [place] [address] May, 2014 [facility] [place] [facility] [address] [facility] [id number] [place] [address] May, 2014 [facility] [place] [facility] [address] [facility] [id number] [place] [address] May, 2014 [facility] [place] [facility] [address] [facility] [id number] [address] May, 2014 [facility] [place] [facility] [address] [facility] [id number] [place] [address] May, 2014 [facility] [place] [facility] [address] [facility] [id number] [place] [address] May, 2014 [facility] [place] [facility] [address] [facility] [id number] [place] [address] Apr, [facility] [place] [facility] [address] [facility] [id number] [place] [address] Apr, [facility] [place] [facility] [address] [id number] [place] [address] Apr, [facility] [place] [facility] [address] [id number] [place] [address] Apr, [facility] [place] [facility] [address] [id number] [place] [address] Apr, [facility] [place] [facility] [address] [id number] [place] [address] Apr, [facility] [place] [facility] [address] [id number] [place] [address] Apr, [facility] [place] [facility] [address] [id number] [place] [address] Apr, [facility] [place] [facility] [address] [id number] [place] [address] Apr, [facility] [place] [facility] [address] [id number] [place] [address] Apr, [facility] [place] [facility] [address] [id number] [place] [address] Mar, [facility] [place] [facility] [address] [id number] [place] [address] Mar, [facility] [place] [facility] [address] [id number] [place] [address] Mar, [facility] [place] [facility] [address] [id number] [place] [address] Mar, [facility] [place] [facility] [address] [id number] [place] [address] Mar, [facility] [place] [facility] [address] [id number] [place] [address] Feb, [facility] [place] [facility] [address] [id number] [place] [address] Feb, [facility] [place] [facility] [address] [id number] [place] [address] Dec, [facility] [place] [facility] [address] [id number] [place] [address] Dec, [facility] [place] [facility] [address] [id number] [place] [address] Nov, [facility] [place] [facility] [address] [id number] [place] [address] Nov, [facility] [place] [facility] [address] [id number] [place] [address] Nov, [facility] [place] [facility] [address] [id number] [place] [address] Nov, [facility] [place] [facility] [address] [id number] [place] [address] Oct, [facility] [place] [facility] [address] [id number] [place] [address] Oct, [facility] [place] [facility] [address] [id number] [place] [address] Sep, [facility] [place] [facility] [address] [id number] [place] [address] Sep, [facility] [place] [facility] [address] [id number] [place] [address] August, [facility] [place] [facility] [address] [id number] [place] [address] August, [facility] [place] [facility] [address] [id number] [place] [address] August, [facility] [place] [facility] [address] [id number] [place] [address] August, [facility] [place] [facility] [address] [id number] [place] [address] Jul, [facility] [place] [facility] [address] [id number] [place] [address] Jul, [facility] [place] [facility] [address] [id number] [place] [address] Jun, [facility] [place] [facility] [address] [id number] [place] [address] Jun, [facility] [place] [facility] [address] [id number] [place] [address] May, [facility] [place] [facility] [address] [id number] [place] [address] May, [facility] [place] [facility] [address] [id number] [place] [address] May, [facility] [place] [facility] [address] [id number] [place] [address] May, [facility] [place] [facility] [address] [id number] [place] [address] May, [facility] [place] [facility] [address] [id number] [place] [address] May, [facility] [place] [facility] [address] [id number] [place] [address] May, [facility] [place] [facility] [address] [id number] [place] [address] Apr, [facility] [place] [facility] [address] [id number] [place] [address] Apr, [facility] [place] [facility] [address] [id number] [place] [address] Apr, [facility] [place] [facility] [address] [id number] [place] [address] Apr, [facility] [place] [facility] [address] [id number] [place] [address] Apr, [facility] [place] [facility] [address] [id number] [place] [address] Apr, [facility] [place] [facility] [address] [id number] [place] [address] Apr, [facility] [address] [id number] [place] [address] Apr, [facility] [address] [id number] [place] [address] Apr, [facility] [address] [id number] [place] [address] Apr, [facility] [address] [id number] [place] [address] Mar, [facility] [address] [id number] [place] [address] Mar, [facility] [address] [id number] [place] [address] Mar, [facility] [address] [id number] [place] [address] Mar, [facility] [address] [id number] [place] [address] Feb, [facility] [address] [id number] [place] [address] Feb, [facility] [address] [id number] [place] [address] Feb, [facility] [place] [facility] [address] [id number] [place] [address] Feb, [facility] [address] [id number] [place] [address] Feb, [facility] [place] [facility] [address] [id number] [place] [address] 16 Feb, 2013 [facility] [place] [facility] [address] [id number] [place] [address] 10 Jan, 2013 [facility] [place] [facility] [address] [id number] [place] [address] Jan, [facility] [address] [id number] [place] [address] 05 Dec, 2012 [facility] [place] [facility] [address] [id number] [place] [address] Dec, [facility] [place] [facility] [address] [id number] [place] [address] Nov, [facility] [place] [facility] [address] [id number] [place] [address] Nov, [facility] [place] [facility] [address] [id number] [place] [address] Oct, [facility] [place] [facility] [address] [id number] [place] [address] Sep, [facility] [place] [facility] [address] [id number] [place] [address] August, [facility] [place] [facility] [address] [id number] [place] [address] Jul, [facility] [place] [facility] [address] [id number] [place] [address] Jul, [facility] [place] [facility] [address] [id number] [place] [address] Jul, [facility] [place] [facility] [address] [id number] [place] [address] Jul, [facility] [place] [facility] [address] [id number] [place] [address] Jul, [facility] [place] [facility] [address] [id number] [place] [address] Jun, [facility] [place] [facility] [address] [id number] [place] [address] May, [facility] [place] [facility] [address] [id number] [place] [address] Apr, [facility] [place] [facility] [address] [id number] [place] [address] Mar, [facility] [place] [facility] [address] [id number] [place] [address] Mar, [facility] [place] [facility] [address] [id number] [place] [address] Mar, [facility] [place] [facility] [address] [id number] [place] [address] Jan, [facility] [place] [facility] [address] [id number] [place] [address] Jan, [facility] [place] [facility] [address] [id number] [place] [address] Jan, [facility] [place] [facility] [address] [id number] [place] [address] Jan, [facility] [place] [facility] [address] [id number] [place] [address] Dec, [facility] [place] [facility] [address] [id number] [place] [address] Dec, [facility] [place] [facility] [address] [id number] [place] [address] Nov, [facility] [place] [facility] [address] [id number] [place] [address] Nov, [facility] [place] [facility] [address] [id number] [place] [address] Nov, [facility] [place] [facility] [address] [id number] [place] [address] Nov, [facility] [place] [facility] [address] [id number] [place] [address] Nov, [facility] [place] [facility] [address] [id number] [place] [address] Oct, [facility] [place] [facility] [address] [id number] [place] [address] Oct, [facility] [place] [facility] [address] [id number] [place] [address] Oct, [facility] [place] [facility] [address] [id number] [place] [address] Sep, [facility] [place] [facility] [address] [id number] [place] [address] August, [facility] [place] [facility] [address] [id number] [place] [address] Jul, [facility] [place] [facility] [address] [id number] [place] [address] Jul, [facility] [place] [facility] [address] [id number] [place] [address] Jul, [facility] [place] [facility] [address] [id number] [place] [address] Jul, [facility] [place] [facility] [address] [id number] [place] [address] Jun, [facility] [place] [facility] [address] [id number] [place] [address] Jun, [facility] [place] [facility] [address] [id number] [place] [address] Jun, [facility] [place] [facility] [address] [id number] [place] [address] Jun, [facility] [place] [facility] [address] [id number] [place] [address] Jun, [facility] [place] [facility] [address] [id number] [place] [address] May, [facility] [place] [facility] [address] [id number] [place] [address] May, [facility] [place] [facility] [address] [id number] [place] [address] May, [facility] [place] [facility] [address] [id number] [place] [address] May, [facility] [id number] [address] Apr, [facility] [id number] [address] Mar, [facility] [id number] [address] Mar, [facility] [id number] [place] [address] Jun, [facility] [id number] [place] [address] Feb, [facility] [id number] [place] [address] Jan, [facility] [id number] [place] [address] Jan, [facility] [id number] [place] [address] Jan, [facility] [id number] [place] [address] Dec, [facility] [id number] [address] May, [facility] [id number] [address] Feb, [facility] [id number] [address] Feb, [facility] [id number] [address] Feb, IMMUNIZATIONS No Known Immunizations SOCIAL HISTORY Never Assessed REASON FOR VISIT intake. Luna DOWELL PLAN OF CARE Activity Details Follow Up 4 Weeks Reason: f/u VITAL SIGNS Height 62 in 2016-12-09 Weight 170.1 lbs 2016-12-09 Heart Rate 80 bpm 2016-12-09 Respiratory Rate 20 2016-12-09 BMI 31.11 kg/m2 2016-12-09 Blood pressure systolic 132 mmHg 2016-12-09 Blood pressure diastolic 80 mmHg 2016-12-09 MEDICATIONS Medication Instructions Dosage Frequency Start Date End Date Duration Status Cymbalta 60 mg Orally twice a day 1 capsule 12h Nov, 30 day(s) Active Atorvastatin Calcium 10 mg Orally Once a day 1 tablet 24h May, 90 days Active MiraLax 17 gm/dose as directed May, Active Cymbalta 30 MG Orally Once a day in the morning and 2 capsules at bedtime 1 capsules Nov, 14 days Active HydrOXYzine HCl 50 mg Orally Once a day at bedtime 1 tablet Nov, 30 days Active Losartan Potassium 100 MG Orally Once a day 1 tablet 24h Dec, Active Gabapentin 300 MG Orally Three times a day 1 capsule 8h May, Active Albuterol Sulfate 2.5 mg /3 mL (0.083 %) 1 Each by Inhalation route every 4 hours for cough and wheeze PRN for wheezing or cough; Jun, Active ProAir HFA 90 mcg/actuation Inhalation every 4 hrs inhale 2 puffs by Inhalation route every 4 hours as needed PRN shortness of breath/cough 4h Apr, Active Melatonin 3 MG Orally Once a day 1 tablet at bedtime as needed with food 24h Active Klonopin 0.5 MG Orally Twice a day as needed 1 tablet Nov, 30 days Active Ibuprofen 800 MG Orally Three times a day PRN 1 tablet Active Dulera 100-5 mcg/actuation 2 puffs by Inhalation route 2 times per day 12h Jul, Active Omeprazole 20 mg Orally twice [...]
--- OUTSIDE RECORDS SUMMARY | 2018-11-21 22:10 | XMS REPORT ---
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 Name Role Phone CINDY, LUIS Unavailable PROBLEMS Type Condition ICD9-CM Code [id number] Code Onset Dates Condition Status SNOMED Code Problem Severe episode of recurrent major depressive disorder, without psychotic features F33.2 Active 27536781 Problem Generalized anxiety disorder F41.1 Active 20012419 Problem Psychophysiological insomnia F51.04 Active 686220087 Problem COPD exacerbation J44.1 Active 437514728 Problem Lumbar spondylosis M47.816 Active 692636138 Problem Other chronic pain G89.29 Active 60434046 Problem Hypercholesterolemia E78.00 Active 68885038 Problem Body mass index (BMI) of 32.0-32.9 in adult Z68.32 Active 137258476 Problem Lumbago with sciatica, unspecified side M54.40 Active 54475947 Problem Other obesity due to excess calories E66.09 Active 139854774 Problem COPD (chronic obstructive pulmonary disease) J44.9 Active 69495344 Problem Depression F32.9 Active 84333318 Problem Facet arthropathy, lumbar M46.96 Active 795901078 Problem Insomnia G47.00 Active 551217373 Problem Essential hypertension I10 Active 81778293 Problem Major depressive disorder, recurrent episode, moderate with anxious distress F33.1 Active 261691710 Problem Restless legs G25.81 Active 28550450 Problem Anxiety F41.9 Active 14648470 Problem Constipation due to outlet dysfunction K59.02 Active 72074658 Problem Gastroesophageal reflux disease with esophagitis K21.0 Active 572133823 ALLERGIES No Known Allergies ENCOUNTERS Encounter Location Date Diagnosis [facility] [address] [facility] [id number] [address] Sep, [facility] [address] [id number] [address] Jul, Fever, unspecified fever cause R50.9 and Cough R05 [place] [id number] [place] [address] Jul, [place] [address] [address] Jul, Gastroesophageal reflux disease with esophagitis K21.0 [place] [address] [address] Jul, [place] [address] [address] Jun, COPD (chronic obstructive pulmonary disease) J44.9 ; Restless legs G25.81 ; Insomnia G47.00 ; Essential hypertension I10 ; Major depressive disorder, recurrent episode, moderate with anxious distress F33.1 ; Gastroesophageal reflux disease with esophagitis K21.0 ; Constipation due to outlet dysfunction K59.02 ; Hypercholesterolemia E78.00 ; Other chronic pain G89.29 and Generalized abdominal pain R10.84 [facility] [id number] [place] [address] Jun, [place] [address] [address] Jun, Acute recurrent sinusitis, unspecified location J01.91 and COPD exacerbation J44.1 [facility] [id number] [place] [address] Jun, Lumbago with sciatica, unspecified side M54.40 [place] [id number] [place] [address] May, [place] [address] [address] May, Severe episode of recurrent major depressive disorder, without psychotic features F33.2 [facility] [id number] [place] [address] Apr, COPD (chronic obstructive pulmonary disease) J44.9 [...] index (BMI) of 32.0-32.9 in adult Z68.32 [place] [address] [address] Apr, Severe episode of recurrent major depressive disorder, without psychotic features F33.[address] [address] Feb, Severe episode of recurrent major depressive disorder, without psychotic features F33.2 and Restless legs G25.[address] [address] Feb, Severe episode of recurrent major depressive disorder, without psychotic features F33.2 ; Generalized anxiety disorder F41.1 and Psychophysiological insomnia F51.04 [place] [id number] [place] [address] Dec, Severe episode of recurrent major depressive disorder, without psychotic features F33.2 ; Generalized anxiety disorder F41.1 and Psychophysiological insomnia F51.04 [facility] [id number] [place] [address] Nov, Severe episode of recurrent major depressive disorder, without psychotic features F33.2 ; Generalized anxiety disorder F41.1 and Psychophysiological insomnia F51.04 [facility] [id number] [place] [address] Nov, [facility] [address] [address] Nov, Depression F32.9 [facility] [id number] [place] [address] Nov, Depression F32.9 ; Insomnia G47.00 and Anxiety F41.9 [facility] [id number] [place] [address] August, COPD (chronic obstructive pulmonary disease) J44.9 ; Depression F32.9 ; Anxiety F41.9 ; Major depressive disorder, recurrent episode, moderate with anxious distress F33.1 ; Insomnia G47.00 ; Restless legs G25.81 ; Essential hypertension I10 and Pure hypercholesterolemia E78.00 [place] [id number] [place] [address] August, Acute intractable tension-type headache G44.201 [facility] [address] [address] Jul, Left wrist pain M25.532 and Strain of left wrist, initial encounter S66.912A [address] [address] 14 May, 2016 Gastroesophageal reflux disease with esophagitis K21.0 and Anxiety F41.9 [place] [id number] [place] [address] May, Major depressive disorder, recurrent episode, moderate with anxious distress F33.1 ; COPD (chronic obstructive pulmonary disease) J44.9 ; Restless legs G25.81 ; Insomnia G47.00 ; Essential hypertension I10 ; Anxiety F41.9 ; Constipation due to outlet dysfunction K59.02 ; Torsion of intestine, bowel or colon K56.2 ; Hypercholesterolemia E78.00 and Gastroesophageal reflux disease with esophagitis K21.0 [facility] [address] [place] [address] Feb, [address] [address] Dec, Essential hypertension I10 ; Depression F32.9 ; Anxiety F41.9 ; Constipation due to outlet dysfunction K59.02 ; Torsion of intestine, bowel or colon K56.2 ; COPD (chronic obstructive pulmonary disease) J44.9 ; Insomnia G47.00 ; Restless legs G25.81 and Gastroesophageal reflux disease with esophagitis K21.0 [place] [address] [place] [address] 08 Dec, 2015 Essential hypertension I10 ; Major depressive disorder, recurrent episode, moderate with anxious distress F33.1 ; COPD (chronic obstructive pulmonary disease) J44.9 ; Restless legs G25.81 ; Insomnia G47.00 ; Constipation due to outlet dysfunction K59.02 and Gastroesophageal reflux disease without esophagitis K21.9 [facility] [id number] [place] [address] 07 Dec, 2015 Major depressive disorder, recurrent episode, moderate with anxious distress F33.1 [place] [id number] [place] [address] 28 Sep, 2015 [place] [id number] [place] [address] 23 Sep, 2015 Nausea R11.0 [place] [id number] [place] [address] 15 Sep, 2015 Lower abdominal pain R10.30 ; COPD (chronic obstructive pulmonary disease) J44.9 ; Restless legs G25.81 ; Essential hypertension I10 ; Depression F32.9 ; Other chronic pain G89.29 ; Lumbago with sciatica, unspecified side M54.40 and Primary insomnia F51.01 [place] [address] [place] [address] August, [place] [id number] [place] [address] August, COPD (chronic obstructive pulmonary disease) J44.9 ; Insomnia G47.00 ; Depression F32.9 and Constipation due to outlet dysfunction K59.02 [place] [address] [place] [address] August, [place] [id number] [place] [address] August, [place] [id number] [place] [address] August, Nausea & vomiting R11.2 [facility] [id number] [place] [address] Jun, [facility] [id number] [place] [address] Jun, Unspecified abdominal pain R10.9 ; Depression, major, recurrent, moderate 296.32 ; COPD (chronic obstructive pulmonary disease) J44.9 ; Restless legs G25.81 ; Insomnia G47.00 ; Intestinal abscess K63.0 ; HTN (hypertension) I10 and Hypercholesteremia E78.0 [place] [id number] [place] [address] Jun, Intestinal abscess K63.0 [facility] [id number] [place] [address] May, [facility] [id number] [place] [address] May, [facility] [id number] [place] [address] May, Unspecified abdominal pain R10.9 [facility] [id number] [place] [address] May, Depression, major, recurrent, moderate 296.32 ; COPD (chronic obstructive pulmonary disease) J44.9 ; Restless legs G25.81 ; Insomnia G47.00 ; Depression F32.9 ; HTN (hypertension) I10 and Hypercholesterolemia E78.0 [facility] [address] [place] [address] Apr, [place] [id number] [place] [address] Mar, Cellulitis L03.90 [facility] [id number] [place] [address] Feb, Recurrent major depression-severe F33.2 [facility] [id number] [place] [address] Feb, Hyperlipemia E78.5 and High blood pressure I10 [place] [id number] [place] [address] Feb, COPD (chronic obstructive pulmonary disease) J44.9 ; Restless legs G25.81 ; Insomnia G47.00 ; Depression F32.9 and HTN (hypertension) I10 [place] [address] [address] Jan, [place] [address] [address] Jan, Generalized anxiety disorder F41.1 and Recurrent major depression- severe F33.2 [place] [address] [address] Jan, Bronchitis J40 [place] [address] [address] Jan, Shoulder pain, right M25.511 and Low back pain M54.5 [place] [address] [address] Jan, [place] [id number] [place] [address] Oct, [place] [id number] [place] [address] Oct, Generalized anxiety disorder 300.02 and Depression, major, severe recurrence 296.33 [place] [address] [address] Oct, [place] [address] [address] Oct, Depression, major, recurrent, moderate 296.32 [place] [address] [address] August, [facility] [place] [facility] [address] [id number] [place] [address] Jul, [facility] [place] [facility] [address] [id number] [place] [address] Jul, [facility] [place] [facility] [address] [id number] [place] [address] Jun, [facility] [place] [facility] [address] [id number] [place] [address] Jun, [facility] [place] [facility] [address] [id number] [place] [address] May, [facility] [place] [facility] [address] [id number] [place] [address] May, [facility] [place] [facility] [address] [facility] [place] [place] [id number] [place] [address] May, 2014 [facility] [place] [facility] [address] [facility] [facility] [place] [id number] [place] [address] May, 2014 [facility] [place] [facility] [address] [id number] [place] [address] May, 2014 [facility] [place] [facility] [address] [facility] [facility] [place] [id number] [place] [address] May, 2014 [facility] [place] [facility] [address] [facility] [place] [id number] [place] [address] May, 2014 [facility] [place] [facility] [address] [id number] [place] [address] May, 2014 [facility] [place] [facility] [address] [id number] [place] [address] May, 2014 [facility] [place] [facility] [address] [facility] [place] [id number] [place] [address] May, 2014 [facility] [place] [facility] [address] [facility] [place] [id number] [place] [address] May, 2014 [facility] [place] [facility] [address] [id number] [place] [address] May, [facility] [place] [facility] [address] [id number] [place] [address] Apr, [facility] [place] [facility] [address] [id number] [place] [address] Apr, [facility] [place] [facility] [address] [id number] [place] [address] Apr, [facility] [place] [facility] [address] [id number] [place] [address] Apr, [facility] [place] [facility] [address] [id number] [place] [address] Apr, [facility] [place] [facility] [address] [id number] [place] [address] Apr, [facility] [place] [facility] [address] [id number] [place] [address] Apr, [facility] [place] [facility] [address] [id number] [place] [address] Apr, [facility] [place] [facility] [address] [id number] [place] [address] Apr, [facility] [place] [facility] [address] [id number] [place] [address] Apr, [facility] [place] [facility] [address] [id number] [place] [address] Mar, [facility] [place] [facility] [address] [id number] [place] [address] Mar, [facility] [place] [facility] [address] [id number] [place] [address] Mar, [facility] [place] [facility] [address] [id number] [place] [address] Mar, [facility] [place] [facility] [address] [id number] [place] [address] Mar, [facility] [place] [facility] [address] [id number] [place] [address] Feb, [facility] [place] [facility] [address] [id number] [place] [address] Feb, [facility] [place] [facility] [address] [id number] [place] [address] Dec, [facility] [place] [facility] [address] [id number] [place] [address] Dec, [facility] [place] [facility] [address] [id number] [place] [address] Nov, [facility] [place] [facility] [address] [id number] [place] [address] Nov, [facility] [place] [facility] [address] [id number] [place] [address] Nov, [facility] [place] [facility] [address] [id number] [place] [address] Nov, [facility] [place] [facility] [address] [id number] [place] [address] Oct, [facility] [place] [facility] [address] [id number] [place] [address] Oct, [facility] [place] [facility] [address] [id number] [place] [address] Sep, [facility] [place] [facility] [address] [id number] [place] [address] Sep, [facility] [place] [facility] [address] [id number] [place] [address] August, [facility] [place] [facility] [address] [id number] [place] [address] August, [facility] [place] [facility] [address] [id number] [place] [address] August, [facility] [place] [facility] [address] [id number] [place] [address] August, [facility] [place] [facility] [address] [id number] [place] [address] Jul, [facility] [place] [facility] [address] [id number] [place] [address] Jul, [facility] [place] [facility] [address] [id number] [place] [address] Jun, [facility] [place] [facility] [address] [id number] [place] [address] Jun, [facility] [place] [facility] [address] [id number] [place] [address] May, [facility] [place] [facility] [address] [id number] [place] [address] May, [facility] [place] [facility] [address] [id number] [place] [address] May, [facility] [place] [facility] [address] [id number] [place] [address] May, [facility] [place] [facility] [address] [id number] [place] [address] May, [facility] [place] [facility] [address] [id number] [place] [address] May, [facility] [place] [facility] [address] [id number] [place] [address] May, [facility] [place] [facility] [address] [id number] [place] [address] Apr, [facility] [place] [facility] [address] [id number] [place] [address] Apr, [facility] [place] [facility] [address] [id number] [place] [address] Apr, [facility] [place] [facility] [address] [id number] [place] [address] Apr, [facility] [address] [id number] [place] [address] Apr, [facility] [place] [facility] [address] [id number] [place] [address] Apr, [facility] [place] [facility] [address] [id number] [place] [address] Apr, [facility] [place] [facility] [address] [id number] [place] [address] Apr, [facility] [place] [facility] [address] [id number] [place] [address] Apr, [facility] [place] [facility] [address] [id number] [place] [address] Apr, [facility] [place] [facility] [address] [id number] [place] [address] Mar, [facility] [place] [facility] [address] [id number] [place] [address] Mar, [facility] [place] [facility] [address] [id number] [place] [address] Mar, [facility] [place] [facility] [address] [id number] [place] [address] Mar, [facility] [place] [facility] [address] [id number] [place] [address] Feb, [facility] [place] [facility] [address] [id number] [address] Feb, [facility] [place] [facility] [address] [id number] [place] [address] Feb, [facility] [place] [facility] [address] [id number] [place] [address] Feb, [facility] [place] [facility] [address] [id number] [place] [address] Feb, [facility] [place] [facility] [address] [id number] [place] [address] 16 Feb, 2013 [facility] [address] [id number] [place] [address] 10 Jan, 2013 [facility] [place] [facility] [address] [id number] [place] [address] 10 Jan, 2013 [facility] [address] [id number] [place] [address] 05 Dec, 2012 [facility] [place] [facility] [address] [id number] [place] [address] 04 Dec, 2012 [facility] [address] [id number] [place] [address] Nov, [facility] [place] [facility] [address] [id number] [place] [address] Nov, [facility] [address] [id number] [place] [address] Oct, [facility] [place] [facility] [address] [id number] [place] [address] Sep, [facility] [place] [facility] [address] [id number] [place] [address] August, [facility] [place] [facility] [address] [facility] [place] [id number] [place] [address] 30 Jul, 2012 [facility] [place] [facility] [address] [id number] [place] [address] 14 Jul, 2012 [facility] [place] [facility] [address] [id number] [place] [address] Jul, [facility] [place] [facility] [address] [id number] [place] [address] 05 Jul, 2012 [facility] [place] [facility] [address] [id number] [place] [address] Jul, [facility] [place] [facility] [address] [id number] [place] [address] Jun, [facility] [place] [facility] [address] [id number] [place] [address] May, [facility] [place] [facility] [address] [id number] [place] [address] Apr, [facility] [place] [facility] [address] [id number] [place] [address] Mar, [facility] [place] [facility] [id number] [place] [address], [place] [address] Mar, [facility] [place] [facility] [address] [id number] [place] [address] Mar, [facility] [place] [facility] [address] [id number] [place] [address] Jan, [facility] [place] [facility] [address] [id number] [place] [address] Jan, [facility] [place] [facility] [address] [id number] [place] [address] Jan, [facility] [place] [facility] [address] [id number] [place] [address] Jan, [facility] [place] [facility] [address] [id number] [place] [address] Dec, [facility] [place] [facility] [address] [id number] [place] [address] Dec, [facility] [place] [facility] [address] [id number] [place] [address] Nov, [facility] [place] [facility] [address] [id number] [place] [address] Nov, [facility] [place] [facility] [address] [id number] [place] [address] Nov, [facility] [place] [facility] [address] [id number] [place] [address] Nov, [facility] [place] [facility] [address] [id number] [place] [address] Nov, [facility] [place] [facility] [address] [id number] [place] [address] Oct, [facility] [place] [facility] [address] [id number] [place] [address] Oct, [facility] [place] [facility] [address] [id number] [place] [address] Oct, [facility] [place] [facility] [address] [id number] [place] [address] Sep, [facility] [place] [facility] [address] [id number] [place] [address] August, [facility] [place] [facility] [address] [id number] [place] [address] Jul, [facility] [place] [facility] [address] [id number] [place] [address] Jul, [facility] [place] [facility] [address] [id number] [place] [address] Jul, [facility] [place] [facility] [address] [id number] [place] [address] Jul, [facility] [place] [facility] [address] [id number] [place] [address] Jun, [facility] [place] [facility] [address] [id number] [place] [address] Jun, [facility] [place] [facility] [address] [id number] [place] [address] Jun, [facility] [place] [facility] [address] [id number] [place] [address] Jun, [facility] [place] [facility] [address] [id number] [place] [address] Jun, [facility] [place] [facility] [address] [id number] [place] [address] May, [facility] [place] [facility] [address] [id number] [place] [address] 28 May, 2011 [facility] [place] [facility] [address] [id number] [place] [address] May, [facility] [place] [facility] [address] [id number] [place] [address] May, [facility] [place] [facility] [address] [id number] [place] [address] Apr, [facility] [place] [facility] [address] [id number] [place] [address] Mar, [facility] [place] [facility] [address] [id number] [place] [address] Mar, [facility] [place] [facility] [address] [id number] [place] [address] Jun, [facility] [place] [facility] [address] [id number] [place] [address] Feb, [facility] [place] [facility] [address] [id number] [place] [address] Jan, [facility] [place] [facility] [address] [id number] [place] [address] Jan, [facility] [place] [facility] [address] [facility] [place] [id number] [place] [address] Jan, [facility] [place] [facility] [address] [id number] [place] [address] Dec, [facility] [place] [facility] [address] [id number] [place] [address] May, [facility] [place] [facility] [address] [id number] [place] [address] Feb, [facility] [place] [facility] [address] [id number] [place] [address] Feb, [facility] [place] [facility] [address] [id number] [place] [address] Feb, IMMUNIZATIONS No Known Immunizations SOCIAL HISTORY Never Assessed REASON FOR VISIT f/u- Neda Pickens RN PLAN OF CARE Activity Details Follow Up 4 Weeks Reason: f/u VITAL SIGNS Height 62 in 2017-03-17 Weight 173 lbs 2017-03-17 Heart Rate 90 bpm 2017-03-17 Respiratory Rate 20 2017-03-17 BMI 31.64 kg/m2 2017-03-17 Blood pressure systolic 142 mmHg 2017-03-17 Blood pressure diastolic 98 mmHg 2017-03-17 MEDICATIONS Medication Instructions Dosage Frequency Start Date End Date Duration Status Klonopin 0.5 MG Orally Twice a day as needed 1 tablet Nov, 30 days Active Cymbalta 60 mg Orally twice a day 1 capsule 12h Nov, 30 days Active Remeron 30 MG Orally Once a day at bedtime 1 tablet Feb, 30 day(s) Active Gabapentin 300 MG Orally Three times a day 1 capsule 8h May, Active MiraLax 17 gm/dose as directed May, Active Melatonin 3 MG Orally Once a day 1 tablet at bedtime as needed with food 24h Active Losartan Potassium 100 MG Orally Once a day 1 tablet 24h Dec, Active Omeprazole 20 mg Orally twice a day 1 capsule 12h 28 days Active Ibuprofen 800 MG Orally Three times a day PRN 1 tablet Active Dulera 100-5 mcg/actuation 2 puffs by Inhalation route 2 times per day 12h Jul, Active Albuterol Sulfate 2.5 mg /3 mL (0.083 %) 1 Each by Inhalation route every 4 hours for cough and wheeze PRN for wheezing or cough; Jun, Active Atorvastatin Calcium 10 mg Orally Once a day 1 tablet 24h May, 90 days Active RESULTS No Results PROCEDURES No Known procedures INSTRUCTIONS MEDICATIONS ADMINISTERED No Known Medications MEDICAL (GENERAL) HISTORY Type Description Date Surgical History hysterectomy Surgical History orthopedic surgery left wrist x5 Surgical History cholecystectomy Surgical History Laproscopy 05/2015 Surgical History bowel resection 06/2015 Surgical History Hernia Surgery 01/2017 Hospitalization History pneumonia Hospitalization History Surgery(s) Hospitalization History Holder Unit s/p overdose 11/14/16
--- OUTSIDE RECORDS SUMMARY | 2018-11-21 22:10 | XMS REPORT ---
Author Author JOMAR FAGAN [facility] Address [address] [place] [address] Care Team Providers Care Certified Hand Therapist Name Role Phone JOMAR FAGAN Unavailable PROBLEMS Type Condition ICD9-CM Code ITS18-ZM Code Onset Dates Condition Status SNOMED Code Problem Constipation due to outlet dysfunction K59.02 Active 26165374 Problem Major depressive disorder, recurrent episode, moderate with anxious distress F33.1 Active 519137234 Problem Essential hypertension I10 Active 90983628 Problem Insomnia G47.00 Active 312889926 Problem COPD (chronic obstructive pulmonary disease) J44.9 Active 53611847 Problem Depression F32.9 Active 65117969 Problem Restless legs G25.81 Active 57445734 Problem Generalized anxiety disorder F41.1 Active 23053913 Problem Psychophysiological insomnia F51.04 Active 722712919 Problem Anxiety F41.9 Active 71951648 Problem Torsion of intestine, bowel or colon K56.2 Active 878262 Problem Severe episode of recurrent major depressive disorder, without psychotic features F33.2 Active 27509955 Problem Gastroesophageal reflux disease with esophagitis K21.0 Active 163151181 ALLERGIES No Known Allergies SOCIAL HISTORY Never Assessed PLAN OF CARE Activity Details Follow Up prn Reason: VITAL SIGNS Height 62 in 2016-09-08 Weight 169.2 lbs 2016-09-08 Temperature 98.7 degrees Fahrenheit 2016-09-08 Heart Rate 88 bpm 2016-09-08 Respiratory Rate 20 2016-09-08 BMI 30.94 kg/m2 2016-09-08 Blood pressure systolic 152 mmHg 2016-09-08 Blood pressure diastolic 96 mmHg 2016-09-08 MEDICATIONS Medication Instructions Dosage Frequency Start Date End Date Duration Status Cymbalta 60 mg Orally Once a day 1 capsule 24h May, 30 day(s) Active Losartan Potassium 50 mg Orally Once a day 1tablet 24h Dec, Active Albuterol Sulfate 2.5 mg /3 mL (0.083 %) 1 Each by Inhalation route every 4 hours for cough and wheeze PRN for wheezing or cough; Jun, Active Atorvastatin Calcium 10 mg Orally Once a day 1 tablet 24h May, 90 days Active Dulera 100-5 mcg/actuation 2 puffs by Inhalation route 2 times per day Jul, Active Ibuprofen 800 MG Orally Three times a day PRN 1 tablet Active MiraLax 17 gm/dose as directed May, Active ProAir HFA 90 mcg/actuation inhale 2 puffs by Inhalation route every 4 hours as needed PRN shortness of breath/cough Apr, Active Melatonin 3 MG Orally Once a day 1 tablet at bedtime as needed with food 24h Active Gabapentin 300 MG Orally Three times a day 1 capsule 8h May, Active RESULTS No Results PROCEDURES No Known [...]
--- OUTSIDE RECORDS SUMMARY | 2018-11-21 22:11 | XMS REPORT ---
Author Author CINDY LUIS [facility] Address [address] [place] [address] Care Team Providers Care Powder Carrier Name Role Phone CINDYLUIS Unavailable PROBLEMS Type Condition ICD9-CM Code JHG64-EQ Code Onset Dates Condition Status SNOMED Code Problem Severe episode of recurrent major depressive disorder, without psychotic features F33.2 Active 14791442 Problem Generalized anxiety disorder F41.1 Active 74350227 Problem Psychophysiological insomnia F51.04 Active 003509651 Problem COPD exacerbation J44.1 Active 991955049 Problem Lumbar spondylosis M47.816 Active 603215415 Problem Other chronic pain G89.29 Active 30374957 Problem Hypercholesterolemia E78.00 Active 22486280 Problem Body mass index (BMI) of 32.0-32.9 in adult Z68.32 Active 111334805 Problem Lumbago with sciatica, unspecified side M54.40 Active 40133176 Problem Other obesity due to excess calories E66.09 Active 609539186 Problem COPD (chronic obstructive pulmonary disease) J44.9 Active 95010604 Problem Depression F32.9 Active 68261379 Problem Facet arthropathy, lumbar M46.96 Active 067572272 Problem Insomnia G47.00 Active 478066763 Problem Essential hypertension I10 Active 56896164 Problem Major depressive disorder, recurrent episode, moderate with anxious distress F33.1 Active 026199210 Problem Restless legs G25.81 Active 58075010 Problem Anxiety F41.9 Active 93113868 Problem Constipation due to outlet dysfunction K59.02 Active 56122689 Problem Gastroesophageal reflux disease with esophagitis K21.0 Active 357065089 ALLERGIES No Information ENCOUNTERS Encounter Location Date Diagnosis [facility] [address] [id number] [address] Sep, [facility] [address] [id number] [address] Jul, Fever, unspecified fever cause R50.9 and Cough R05 [address] [place] [id number] [place] [address] Jul, [place] [id number] [place] [address] Jul, Gastroesophageal reflux disease with esophagitis K21.0 [place] [address] [address] Jul, [place] [address] [address] Jun, COPD (chronic obstructive pulmonary disease) J44.9 ; Restless legs G25.81 ; Insomnia G47.00 ; Essential hypertension I10 ; Major depressive disorder, recurrent episode, moderate with anxious distress F33.1 ; Gastroesophageal reflux disease with esophagitis K21.0 ; Constipation due to outlet dysfunction K59.02 ; Hypercholesterolemia E78.00 ; Other chronic pain G89.29 and Generalized abdominal pain R10.84 [place] [id number] [place] [address] Jun, [place] [address] [address] Jun, Acute recurrent sinusitis, unspecified location J01.91 and COPD exacerbation J44.1 [place] [id number] [place] [address] Jun, Lumbago with sciatica, unspecified side M54.40 [place] [id number] [place] [address] May, [place] [address] [address] May, Severe episode of recurrent major depressive disorder, without psychotic features F33.2 [place] [id number] [place] [address] Apr, COPD (chronic obstructive pulmonary disease) J44.9 [...] index (BMI) of 32.0-32.9 in adult Z68.32 [place] [address] [address] Apr, Severe episode of recurrent major depressive disorder, without psychotic features F33.[address] [address] Feb, Severe episode of recurrent major depressive disorder, without psychotic features F33.2 and Restless legs G25.[address] [address] Feb, Severe episode of recurrent major depressive disorder, without psychotic features F33.2 ; Generalized anxiety disorder F41.1 and Psychophysiological insomnia F51.04 [place] [id number] [place] [address] Dec, Severe episode of recurrent major depressive disorder, without psychotic features F33.2 ; Generalized anxiety disorder F41.1 and Psychophysiological insomnia F51.04 [place] [id number] [place] [address] Nov, Severe episode of recurrent major depressive disorder, without psychotic features F33.2 ; Generalized anxiety disorder F41.1 and Psychophysiological insomnia F51.04 [place] [id number] [place] [address] Nov, [place] [address] [address] Nov, Depression F32.9 [place] [id number] [place] [address] Nov, Depression F32.9 ; Insomnia G47.00 and Anxiety F41.9 [place] [id number] [place] [address] August, COPD (chronic obstructive pulmonary disease) J44.9 ; Depression F32.9 ; Anxiety F41.9 ; Major depressive disorder, recurrent episode, moderate with anxious distress F33.1 ; Insomnia G47.00 ; Restless legs G25.81 ; Essential hypertension I10 and Pure hypercholesterolemia E78.00 [place] [address] [address] August, Acute intractable tension-type headache G44.201 [facility] [address] [address] Jul, Left wrist pain M25.532 and Strain of left wrist, initial encounter S66.912A [address] [address] 14 May, 2016 Gastroesophageal reflux disease with esophagitis K21.0 and Anxiety F41.9 [place] [id number] [place] [address] May, Major depressive disorder, recurrent episode, moderate with anxious distress F33.1 ; COPD (chronic obstructive pulmonary disease) J44.9 ; Restless legs G25.81 ; Insomnia G47.00 ; Essential hypertension I10 ; Anxiety F41.9 ; Constipation due to outlet dysfunction K59.02 ; Torsion of intestine, bowel or colon K56.2 ; Hypercholesterolemia E78.00 and Gastroesophageal reflux disease with esophagitis K21.0 [facility] [id number] [place] [address] Feb, [address] [address] Dec, Essential hypertension I10 ; Depression F32.9 ; Anxiety F41.9 ; Constipation due to outlet dysfunction K59.02 ; Torsion of intestine, bowel or colon K56.2 ; COPD (chronic obstructive pulmonary disease) J44.9 ; Insomnia G47.00 ; Restless legs G25.81 and Gastroesophageal reflux disease with esophagitis K21.0 [place] [id number] [place] [address] 08 Dec, 2015 Essential hypertension I10 ; Major depressive disorder, recurrent episode, moderate with anxious distress F33.1 ; COPD (chronic obstructive pulmonary disease) J44.9 ; Restless legs G25.81 ; Insomnia G47.00 ; Constipation due to outlet dysfunction K59.02 and Gastroesophageal reflux disease without esophagitis K21.9 [place] [id number] [place] [address] 07 Dec, 2015 Major depressive disorder, recurrent episode, moderate with anxious distress F33.1 [place] [id number] [place] [address] Sep, [place] [id number] [place] [address] 23 Sep, 2015 Nausea R11.0 [place] [address] [address] 15 Sep, 2015 Lower abdominal pain R10.30 ; COPD (chronic obstructive pulmonary disease) J44.9 ; Restless legs G25.81 ; Essential hypertension I10 ; Depression F32.9 ; Other chronic pain G89.29 ; Lumbago with sciatica, unspecified side M54.40 and Primary insomnia F51.01 [place] [id number] [place] [address] August, [place] [id number] [place] [address] August, COPD (chronic obstructive pulmonary disease) J44.9 ; Insomnia G47.00 ; Depression F32.9 and Constipation due to outlet dysfunction K59.02 [place] [id number] [place] [address] August, [place] [id number] [place] [address] August, [place] [id number] [place] [address] August, Nausea & vomiting R11.2 [facility] [id number] [place] [address] Jun, [facility] [id number] [place] [address] Jun, Unspecified abdominal pain R10.9 ; Depression, major, recurrent, moderate 296.32 ; COPD (chronic obstructive pulmonary disease) J44.9 ; Restless legs G25.81 ; Insomnia G47.00 ; Intestinal abscess K63.0 ; HTN (hypertension) I10 and Hypercholesteremia E78.0 [facility] [id number] [place] [address] Jun, Intestinal abscess K63.0 [facility] [id number] [place] [address] May, [facility] [id number] [place] [address] May, [facility] [id number] [place] [address] May, Unspecified abdominal pain R10.9 [facility] [id number] [place] [address] May, Depression, major, recurrent, moderate 296.32 ; COPD (chronic obstructive pulmonary disease) J44.9 ; Restless legs G25.81 ; Insomnia G47.00 ; Depression F32.9 ; HTN (hypertension) I10 and Hypercholesterolemia E78.0 [facility] [id number] [place] [address] Apr, [facility] [address] [address] Mar, Cellulitis L03.90 [facility] [id number] [place] [address] Feb, Recurrent major depression-severe F33.2 [facility] [id number] [place] [address] Feb, Hyperlipemia E78.5 and High blood pressure I10 [place] [id number] [place] [address] Feb, COPD (chronic obstructive pulmonary disease) J44.9 ; Restless legs G25.81 ; Insomnia G47.00 ; Depression F32.9 and HTN (hypertension) I10 [facility] [address] [address] Jan, [place] [address] [address] Jan, Generalized anxiety disorder F41.1 and Recurrent major depression- severe F33.2 [place] [address] [address] Jan, Bronchitis J40 [place] [address] [address] Jan, Shoulder pain, right M25.511 and Low back pain M54.5 [place] [address] [address] Jan, [place] [id number] [place] [address] Oct, [place] [address] [address] Oct, Generalized anxiety disorder 300.02 and Depression, major, severe recurrence 296.33 [place] [address] [address] Oct, [place] [address] [address] Oct, Depression, major, recurrent, moderate 296.32 [place] [address] [address] August, [facility] [place] [facility] [address] [id number] [place] [address] Jul, [facility] [place] [facility] [address] [id number] [place] [address] Jul, [facility] [place] [facility] [address] [id number] [place] [address] Jun, [facility] [place] [facility] [address] [id number] [place] [address] Jun, [facility] [place] [facility] [address] [id number] [place] [address] May, [facility] [place] [facility] [address] [id number] [place] [address] May, [facility] [place] [facility] [address] [facility] [id number] [place] [address] May, [facility] [place] [facility] [address] [id number] [place] [address] May, 2014 [facility] [place] [facility] [address] [id number] [place] [address] May, 2014 [facility] [place] [facility] [address] [facility] [id number] [place] [address] May, 2014 [facility] [place] [facility] [address] [facility] [facility] [id number] [place] [address] May, 2014 [facility] [place] [facility] [address] [id number] [place] [address] May, 2014 [facility] [place] [facility] [address] [id number] [place] [address] May, 2014 [facility] [place] [facility] [address] [facility] [id number] [place] [address] May, 2014 [facility] [place] [facility] [address] [facility] [id number] [place] [address] May, 2014 [facility] [place] [facility] [address] [id number] [place] [address] May, [facility] [address] [id number] [place] [address] Apr, [facility] [place] [facility] [address] [id number] [place] [address] Apr, [facility] [address] [id number] [place] [address] Apr, [facility] [place] [facility] [address] [id number] [place] [address] Apr, [facility] [address] [id number] [place] [address] Apr, [facility] [place] [facility] [address] [id number] [place] [address] Apr, [facility] [address] [id number] [place] [address] Apr, [facility] [address] [id number] [place] [address] Apr, [facility] [place] [facility] [address] [id number] [place] [address] Apr, [facility] [address] [id number] [place] [address] Apr, [facility] [place] [facility] [address] [id number] [place] [address] Mar, [facility] [place] [facility] [address] [id number] [place] [address] Mar, [facility] [place] [facility] [address] [id number] [place] [address] Mar, [facility] [place] [facility] [address] [id number] [place] [address] Mar, [facility] [place] [facility] [address] [id number] [place] [address] Mar, [facility] [place] [facility] [address] [id number] [place] [address] Feb, [facility] [place] [facility] [address] [id number] [place] [address] Feb, [facility] [place] [facility] [address] [id number] [place] [address] Dec, [facility] [place] [facility] [address] [id number] [place] [address] Dec, [facility] [place] [facility] [address] [id number] [place] [address] Nov, [facility] [place] [facility] [address] [id number] [place] [address] Nov, [facility] [place] [facility] [address] [id number] [place] [address] Nov, [facility] [place] [facility] [address] [id number] [place] [address] Nov, [facility] [place] [facility] [address] [id number] [place] [address] Oct, [facility] [place] [facility] [address] [id number] [place] [address] Oct, [facility] [place] [facility] [address] [id number] [place] [address] Sep, [facility] [place] [facility] [address] [id number] [place] [address] Sep, [facility] [place] [facility] [address] [id number] [place] [address] August, [facility] [place] [facility] [address] [id number] [place] [address] August, [facility] [place] [facility] [address] [id number] [place] [address] August, [facility] [place] [facility] [address] [id number] [place] [address] August, [facility] [place] [facility] [address] [id number] [place] [address] Jul, [facility] [place] [facility] [address] [id number] [place] [address] Jul, [facility] [place] [facility] [address] [id number] [place] [address] Jun, [facility] [place] [facility] [address] [id number] [place] [address] Jun, [facility] [place] [facility] [address] [id number] [place] [address] May, [facility] [place] [facility] [address] [id number] [place] [address] May, [facility] [place] [facility] [address] [id number] [place] [address] May, [facility] [place] [facility] [address] [id number] [place] [address] May, [facility] [place] [facility] [address] [id number] [place] [address] May, [facility] [place] [facility] [address] [id number] [place] [address] May, [facility] [place] [facility] [address] [id number] [place] [address] May, [facility] [place] [facility] [address] [id number] [place] [address] Apr, [facility] [place] [facility] [address] [id number] [place] [address] Apr, [facility] [place] [facility] [address] [id number] [place] [address] Apr, [facility] [place] [facility] [address] [id number] [place] [address] Apr, [facility] [place] [facility] [address] [id number] [place] [address] Apr, [facility] [place] [facility] [address] [id number] [place] [address] Apr, [facility] [place] [facility] [address] [id number] [place] [address] Apr, [facility] [place] [facility] [address] [id number] [place] [address] Apr, [facility] [place] [facility] [address] [id number] [place] [address] Apr, [facility] [place] [facility] [address] [id number] [place] [address] Apr, [facility] [place] [facility] [address] [id number] [place] [address] Mar, [facility] [place] [facility] [address] [id number] [place] [address] Mar, [facility] [place] [facility] [address] [id number] [place] [address] Mar, [facility] [place] [facility] [address] [id number] [place] [address] Mar, [facility] [place] [facility] [address] [id number] [place] [address] Feb, [facility] [place] [facility] [address] [id number] [place] [address] Feb, [facility] [place] [facility] [address] [id number] [place] [address] Feb, [facility] [place] [facility] [address] [id number] [place] [address] Feb, [facility] [place] [facility] [address] [id number] [place] [address] Feb, [facility] [place] [facility] [address] [id number] [place] [address] 16 Feb, 2013 [facility] [address] [id number] [place] [address] 10 Jan, 2013 [facility] [address] [id number] [place] [address] 10 Jan, 2013 [facility] [address] [id number] [place] [address] 05 Dec, 2012 [facility] [place] [facility] [address] [id number] [place] [address] Dec, [facility] [address] [id number] [place] [address] Nov, [facility] [place] [facility] [address] [id number] [place] [address] Nov, [facility] [address] [id number] [place] [address] Oct, [facility] [address] [id number] [place] [address] Sep, [facility] [address] [id number] [place] [address] August, [facility] [address] [id number] [place] [address] Jul, [facility] [address] [id number] [place] [address] 14 Jul, 2012 [facility] [place] [facility] [address] [id number], [place] [address] Jul, [facility] [place] [facility] [address] [id number] [place] [address] Jul, [facility] [place] [facility] [address] [id number] [place] [address] Jul, [facility] [place] [facility] [address] [id number] [place] [address] Jun, [facility] [place] [facility] [address] [id number] [place] [address] May, [facility] [place] [facility] [address] [id number] [place] [address] Apr, [facility] [place] [facility] [address] [id number] [place] [address] Mar, [facility] [place] [facility] [address] [id number] [place] [address] Mar, [facility] [place] [facility] [address] [id number] [place] [address] Mar, [facility] [place] [facility] [address] [id number] [place] [address] Jan, [facility] [place] [facility] [address] [id number] [place] [address] Jan, [facility] [place] [facility] [address] [id number] [place] [address] Jan, [facility] [place] [facility] [address] [id number] [place] [address] Jan, [facility] [place] [facility] [address] [id number] [place] [address] Dec, [facility] [place] [facility] [address] [id number] [place] [address] Dec, [facility] [place] [facility] [address] [id number] [place] [address] Nov, [facility] [place] [facility] [address] [id number] [place] [address] Nov, [facility] [place] [facility] [address] [id number] [place] [address] Nov, [facility] [place] [facility] [address] [id number] [place] [address] Nov, [facility] [place] [facility] [address] [id number] [place] [address] Nov, [facility] [place] [facility] [address] [id number] [place] [address] Oct, [facility] [place] [facility] [address] [id number] [place] [address] Oct, [facility] [place] [facility] [address] [id number] [place] [address] Oct, [facility] [place] [facility] [address] [id number] [place] [address] Sep, [facility] [place] [facility] [address] [id number] [place] [address] August, [facility] [place] [facility] [address] [id number] [place] [address] Jul, [facility] [place] [facility] [address] [id number] [place] [address] Jul, [facility] [place] [facility] [address] [id number] [place] [address] Jul, [facility] [place] [facility] [address] [id number] [place] [address] Jul, [facility] [place] [facility] [address] [id number] [place] [address] Jun, [facility] [place] [facility] [address] [id number] [place] [address] Jun, [facility] [place] [facility] [address] [id number] [place] [address] Jun, [facility] [place] [facility] [address] [id number] [place] [address] Jun, [facility] [place] [facility] [address] [id number] [place] [address] Jun, [facility] [place] [facility] [address] [id number] [place] [address] May, [facility] [place] [facility] [address] [id number] [place] [address] 28 May, 2011 [facility] [place] [facility] [address] [id number] [place] [address] May, [facility] [place] [facility] [address] [id number] [place] [address] May, [facility] [place] [facility] [address] [id number] [place] [address] Apr, [facility] [place] [facility] [address] [id number] [place] [address] Mar, [facility] [place] [facility] [address] [id number] [place] [address] Mar, [facility] [place] [facility] [address] [facility] [id number] [place] [address] Jun, [facility] [place] [facility] [address] [id number] [place] [address] Feb, [facility] [place] [facility] [address] [id number] [place] [address] Jan, [facility] [place] [facility] [address] [id number] [place] [address] Jan, [facility] [place] [facility] [address] [facility] [id number] [place] [address] Jan, [facility] [place] [facility] [address] [id number] [place] [address] Dec, [facility] [place] [facility] [address] [id number] [place] [address] May, [facility] [place] [facility] [address] [id number] [place] [address] Feb, [facility] [place] [facility] [address] [facility] [id number] [place] [address] Feb, [facility] [place] [facility] [address] [id number] [place] [address] Feb, IMMUNIZATIONS No Known Immunizations SOCIAL HISTORY Never Assessed REASON FOR VISIT repository meds PLAN OF CARE VITAL SIGNS MEDICATIONS Medication Instructions Dosage Frequency Start Date End Date Duration Status Cymbalta 20 MG Orally twice a day 3 capsule 12h Nov, Active Gabapentin 300 MG Orally Three times a day 1 capsule 8h 08 May, 2015 Active Remeron 30 MG Orally Once a day at bedtime 1 tablet Feb, Active RESULTS No Results PROCEDURES No Known [...]
--- OUTSIDE RECORDS SUMMARY | 2018-11-21 22:16 | XMS REPORT | Continuity of Care Document ---
Author Organization Unknown Address Unknown Phone Unavailable Allergies Active Description Code Type Severity Reaction Onset Reported/Identified Relationship to Patient Clinical Status Yes No Known Drug Allergies [id number] Drug Allergy Unknown N/A 07/27/2018 Medications There is no data. Problems Date Dx Coded Attending Type Code Diagnosis Diagnosed By 12/10/2007 [facility], LYNN R V58.69 MEDICATION HIGH RISK 12/10/2007 V58.69 MEDICATION HIGH RISK 12/10/2007 V58.69 MEDICATION HIGH RISK 12/10/2007 V58.69 MEDICATION HIGH RISK 12/10/2007 V58.69 MEDICATION HIGH RISK 12/10/2007 V58.69 MEDICATION HIGH RISK 12/10/2007 V58.69 MEDICATION HIGH RISK 12/10/2007 V58.69 MEDICATION HIGH RISK 12/10/2007 [facility], LYNN R V58.69 MEDICATION HIGH RISK 12/10/2007 [facility], LYNN R V58.69 MEDICATION HIGH RISK 12/10/2007 NAV[facility] DO, MARTY K V58.69 MEDICATION HIGH RISK 12/10/2007 NAV[facility] DO, MARTY K V58.69 MEDICATION HIGH RISK 12/10/2007 NAV[facility] DO, MARTY K V58.69 MEDICATION HIGH RISK 12/10/2007 NAV[facility] DO, MARTY K V58.69 MEDICATION HIGH RISK 12/10/2007 JOMAR FAGAN MD V58.69 MEDICATION HIGH RISK 12/10/2007 NAV[facility] DO, MARTY K V58.69 MEDICATION HIGH RISK 12/10/2007 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, NILE V58.69 MEDICATION HIGH RISK 12/10/2007 [facility], LYNN R V58.69 MEDICATION HIGH RISK 12/10/2007 NAV[facility] DO, MARTY K V58.69 MEDICATION HIGH RISK 12/10/2007 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, NILE V58.69 MEDICATION HIGH RISK 12/10/2007 NAV[facility] DO, MARTY K V58.69 MEDICATION HIGH RISK 12/10/2007 [facility], LYNN R V58.69 MEDICATION HIGH RISK 12/28/2007 [facility], LYNN R 296.33 MAJOR DEPRESSIVE AFFECTIVE DISORDER 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33 MAJOR DEPRESSIVE AFFECTIVE DISORDER RECURRENT EPISODE SEVERE DEGREE WITHOUT PSYCHOTIC BEHAVIOR 12/28/2007 [facility], LYNN R 296.33 MAJOR DEPRESSIVE AFFECTIVE DISORDER RECURRENT EPISODE SEVERE DEGREE WITHOUT PSYCHOTIC BEHAVIOR 12/28/2007 [facility], LYNN R 296.33 MAJOR DEPRESSIVE AFFECTIVE DISORDER RECURRENT EPISODE SEVERE DEGREE WITHOUT PSYCHOTIC BEHAVIOR 12/28/2007 [facility] DO MARTY K 296.33 MAJOR DEPRESSIVE AFFECTIVE DISORDER RECURRENT EPISODE SEVERE DEGREE WITHOUT PSYCHOTIC BEHAVIOR 12/28/2007 NAV[facility] DO MARTY K 296.33 MAJOR DEPRESSIVE AFFECTIVE DISORDER RECURRENT EPISODE SEVERE DEGREE WITHOUT PSYCHOTIC BEHAVIOR 12/28/2007 NAV[facility] DO MARTY K 296.33 MAJOR DEPRESSIVE AFFECTIVE DISORDER RECURRENT EPISODE SEVERE DEGREE WITHOUT PSYCHOTIC BEHAVIOR 12/28/2007 NAV[facility] DO MARTY K 296.33 MAJOR DEPRESSIVE AFFECTIVE DISORDER RECURRENT EPISODE SEVERE DEGREE WITHOUT PSYCHOTIC BEHAVIOR 12/28/2007 JOMAR FAGAN MD 296.33 MAJOR DEPRESSIVE AFFECTIVE DISORDER RECURRENT EPISODE SEVERE DEGREE WITHOUT PSYCHOTIC BEHAVIOR 12/28/2007 NAV[facility] DO MARTY K 296.33 MAJOR DEPRESSIVE AFFECTIVE DISORDER RECURRENT EPISODE SEVERE DEGREE WITHOUT PSYCHOTIC BEHAVIOR 12/28/2007 THAIS MACEDO APRNETTE 296.33 MAJOR DEPRESSIVE AFFECTIVE DISORDER RECURRENT EPISODE SEVERE DEGREE WITHOUT PSYCHOTIC BEHAVIOR 12/28/2007 [facility], LYNN R 296.33 MAJOR DEPRESSIVE AFFECTIVE DISORDER RECURRENT EPISODE SEVERE DEGREE WITHOUT PSYCHOTIC BEHAVIOR 12/28/2007 NAV[facility] DO MARTY K 296.33 MAJOR DEPRESSIVE AFFECTIVE DISORDER RECURRENT EPISODE SEVERE DEGREE WITHOUT PSYCHOTIC BEHAVIOR 12/28/2007 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 NILE 296.33 MAJOR DEPRESSIVE AFFECTIVE DISORDER RECURRENT EPISODE SEVERE DEGREE WITHOUT PSYCHOTIC BEHAVIOR 12/28/2007 NAV[facility] DO MARTY K 296.33 MAJOR DEPRESSIVE AFFECTIVE DISORDER RECURRENT EPISODE SEVERE DEGREE WITHOUT PSYCHOTIC BEHAVIOR 12/28/2007 [facility], LYNN R 296.33 MAJOR DEPRESSIVE AFFECTIVE DISORDER RECURRENT EPISODE SEVERE DEGREE WITHOUT PSYCHOTIC BEHAVIOR 01/12/2008 [facility], LYNN R 486 PNEUMONIA UNSPECIFIED 01/12/2008 [facility], LYNN R 780.52 INSOMNIA UNSPECIFIED 01/12/2008 [facility], LYNN R 786.05 shortness of breath 01/12/2008 486 PNEUMONIA UNSPECIFIED 01/12/2008 780.52 INSOMNIA UNSPECIFIED 01/12/2008 786.05 shortness of breath 01/12/2008 486 PNEUMONIA UNSPECIFIED 01/12/2008 780.52 INSOMNIA UNSPECIFIED 01/12/2008 786.05 shortness of breath 01/12/2008 486 PNEUMONIA UNSPECIFIED 01/12/2008 780.52 INSOMNIA UNSPECIFIED 01/12/2008 786.05 shortness of breath 01/12/2008 486 PNEUMONIA UNSPECIFIED 01/12/2008 780.52 INSOMNIA UNSPECIFIED 01/12/2008 786.05 shortness of breath 01/12/2008 486 PNEUMONIA UNSPECIFIED 01/12/2008 780.52 INSOMNIA UNSPECIFIED 01/12/2008 786.05 shortness of breath 01/12/2008 486 PNEUMONIA UNSPECIFIED 01/12/2008 780.52 INSOMNIA UNSPECIFIED 01/12/2008 786.05 shortness of breath 01/12/2008 486 PNEUMONIA UNSPECIFIED 01/12/2008 780.52 INSOMNIA UNSPECIFIED 01/12/2008 786.05 shortness of breath 01/12/2008 [facility], LYNN R 486 PNEUMONIA UNSPECIFIED 01/12/2008 [facility], LYNN R 780.52 INSOMNIA UNSPECIFIED 01/12/2008 [facility], LYNN R 786.05 shortness of breath 01/12/2008 [facility], LYNN R 486 PNEUMONIA UNSPECIFIED 01/12/2008 [facility], LYNN R 780.52 INSOMNIA UNSPECIFIED 01/12/2008 [facility], LYNN R 786.05 shortness of breath 01/12/2008 NAV[facility] DO, MARTY K 486 PNEUMONIA UNSPECIFIED 01/12/2008 NAV[facility] DO, MARTY K 780.52 INSOMNIA UNSPECIFIED 01/12/2008 [facility] DO, MARTY K 786.05 shortness of breath 01/12/2008 NAV[facility] DO, MARTY K 486 PNEUMONIA UNSPECIFIED 01/12/2008 NAV[facility] DO, MARTY K 780.52 INSOMNIA UNSPECIFIED 01/12/2008 [facility] DO, MARTY K 786.05 shortness of breath 01/12/2008 [facility] DO, MARTY K 486 PNEUMONIA UNSPECIFIED 01/12/2008 NAV[facility] DO, MARTY K 780.52 INSOMNIA UNSPECIFIED 01/12/2008 [facility] DO, MARTY K 786.05 shortness of breath 01/12/2008 NAV[facility] DO, MARTY K 486 PNEUMONIA UNSPECIFIED 01/12/2008 NAV[facility] DO, MARTY K 780.52 INSOMNIA UNSPECIFIED 01/12/2008 [facility] DO, MARTY K 786.05 shortness of breath 01/12/2008 JOMAR FAGAN MD 486 PNEUMONIA UNSPECIFIED 01/12/2008 JOMAR FAGAN MD 780.52 INSOMNIA UNSPECIFIED 01/12/2008 JOMAR FAGAN MD 786.05 shortness of breath 01/12/2008 [facility] DO, MARTY K 486 PNEUMONIA UNSPECIFIED 01/12/2008 NAV[facility] DO, MARTY K 780.52 INSOMNIA UNSPECIFIED 01/12/2008 [facility] DO, MARTY K 786.05 shortness of breath 01/12/2008 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, NILE 486 PNEUMONIA UNSPECIFIED 01/12/2008 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, NILE 780.52 INSOMNIA UNSPECIFIED 01/12/2008 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, NILE 786.05 shortness of breath 01/12/2008 [facility], LYNN R 486 PNEUMONIA UNSPECIFIED 01/12/2008 [facility], LYNN R 780.52 INSOMNIA UNSPECIFIED 01/12/2008 [facility], LYNN R 786.05 shortness of breath 01/12/2008 NAV[facility] DO, MARTY K 486 PNEUMONIA UNSPECIFIED 01/12/2008 NAV[facility] DO, MARTY K 780.52 INSOMNIA UNSPECIFIED 01/12/2008 NAV[facility] DO, MARTY K 786.05 shortness of breath 01/12/2008 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, NILE 486 PNEUMONIA UNSPECIFIED 01/12/2008 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, NILE 780.52 INSOMNIA UNSPECIFIED 01/12/2008 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, NILE 786.05 shortness of breath 01/12/2008 NAV[facility] DO, MARTY K 486 PNEUMONIA UNSPECIFIED 01/12/2008 NAV[facility] DO, MARTY K 780.52 INSOMNIA UNSPECIFIED 01/12/2008 NAVAS DO, MARTY K 786.05 shortness of breath 01/12/2008 [facility], LYNN R 486 PNEUMONIA UNSPECIFIED 01/12/2008 [facility], LYNN R 780.52 INSOMNIA UNSPECIFIED 01/12/2008 [facility], LYNN R 786.05 shortness of breath 01/18/2008 [facility], LYNN R 266.2 B12 DEF W/O ANEMIA 01/18/2008 266.2 B12 DEF W/O ANEMIA 01/18/2008 266.2 B12 DEF W/O ANEMIA 01/18/2008 266.2 B12 DEF W/O ANEMIA 01/18/2008 266.2 B12 DEF W/O ANEMIA 01/18/2008 266.2 B12 DEF W/O ANEMIA 01/18/2008 266.2 B12 DEF W/O ANEMIA 01/18/2008 266.2 B12 DEF W/O ANEMIA 01/18/2008 [facility], LYNN R 266.2 B12 DEF W/O ANEMIA 01/18/2008 [facility], LYNN R 266.2 B12 DEF W/O ANEMIA 01/18/2008 NAV[facility] DO MARTY K 266.2 B12 DEF W/O ANEMIA 01/18/2008 NAVAS DO, MARTY K 266.2 B12 DEF W/O ANEMIA 01/18/2008 NAVAS DO MARTY K 266.2 B12 DEF W/O ANEMIA 01/18/2008 NAVAS DO MARTY K 266.2 B12 DEF W/O ANEMIA 01/18/2008 JOMAR FAGAN MD 266.2 B12 DEF W/O ANEMIA 01/18/2008 NAVAS DO, MARTY K 266.2 B12 DEF W/O ANEMIA 01/18/2008 NILE MACEDO APRN 266.2 B12 DEF W/O ANEMIA 01/18/2008 [facility], LYNN R 266.2 B12 DEF W/O ANEMIA 01/18/2008 NAV[facility] DO MARTY K 266.2 B12 DEF W/O ANEMIA 01/18/2008 NILE MACEDO APRN 266.2 B12 DEF W/O ANEMIA 01/18/2008 NAV[facility] DO MARTY K 266.2 B12 DEF W/O ANEMIA 01/18/2008 [facility], LYNN R 266.2 B12 DEF W/O ANEMIA 05/24/2008 [facility], LYNN R 465.9 UPPER RESPIRATORY INFECTION 05/24/2008 [facility], LYNN R 787.01 nausea with vomiting 05/24/2008 [facility], LYNN R 789.01 abdominal pain in the right upper belly (RUQ) 05/24/2008 465.9 UPPER RESPIRATORY INFECTION 05/24/2008 787.01 nausea with vomiting 05/24/2008 789.01 abdominal pain in the right upper belly (RUQ) 05/24/2008 465.9 UPPER RESPIRATORY INFECTION 05/24/2008 787.01 nausea with vomiting 05/24/2008 789.01 abdominal pain in the right upper belly (RUQ) 05/24/2008 465.9 UPPER RESPIRATORY INFECTION 05/24/2008 787.01 nausea with vomiting 05/24/2008 789.01 abdominal pain in the right upper belly (RUQ) 05/24/2008 465.9 UPPER RESPIRATORY INFECTION 05/24/2008 787.01 nausea with vomiting 05/24/2008 789.01 abdominal pain in the right upper belly (RUQ) 05/24/2008 465.9 UPPER RESPIRATORY INFECTION 05/24/2008 787.01 nausea with vomiting 05/24/2008 789.01 abdominal pain in the right upper belly (RUQ) 05/24/2008 465.9 UPPER RESPIRATORY INFECTION 05/24/2008 787.01 nausea with vomiting 05/24/2008 789.01 abdominal pain in the right upper belly (RUQ) 05/24/2008 465.9 UPPER RESPIRATORY INFECTION 05/24/2008 787.01 nausea with vomiting 05/24/2008 789.01 abdominal pain in the right upper belly (RUQ) 05/24/2008 [facility], LYNN R 465.9 UPPER RESPIRATORY INFECTION 05/24/2008 [facility], LYNN R 787.01 nausea with vomiting 05/24/2008 [facility], LYNN R 789.01 abdominal pain in the right upper belly (RUQ) 05/24/2008 [facility], LYNN R 465.9 UPPER RESPIRATORY INFECTION 05/24/2008 [facility], LYNN R 787.01 nausea with vomiting 05/24/2008 [facility], LYNN R 789.01 abdominal pain in the right upper belly (RUQ) 05/24/2008 NAVAS DO, MARTY K 465.9 UPPER RESPIRATORY INFECTION 05/24/2008 NAVAS DO, MARTY K 787.01 nausea with vomiting 05/24/2008 NAVAS DO, MARTY K 789.01 abdominal pain in the right upper belly (RUQ) 05/24/2008 NAVAS DO, MARTY K 465.9 UPPER RESPIRATORY INFECTION 05/24/2008 NAVAS DO, MARTY K 787.01 nausea with vomiting 05/24/2008 NAVAS DO, MARTY K 789.01 abdominal pain in the right upper belly (RUQ) 05/24/2008 NAVAS DO, MARTY K 465.9 UPPER RESPIRATORY INFECTION 05/24/2008 NAVAS DO, MARTY K 787.01 nausea with vomiting 05/24/2008 NAVAS DO, MARTY K 789.01 abdominal pain in the right upper belly (RUQ) 05/24/2008 NAVAS DO, MARTY K 465.9 UPPER RESPIRATORY INFECTION 05/24/2008 NAVAS DO, MARTY K 787.01 nausea with vomiting 05/24/2008 NAVAS DO, MARTY K 789.01 abdominal pain in the right upper belly (RUQ) 05/24/2008 JOMAR FAGAN MD 465.9 UPPER RESPIRATORY INFECTION 05/24/2008 JOMAR FAGAN MD 787.01 nausea with vomiting 05/24/2008 JOMAR FAGAN MD 789.01 abdominal pain in the right upper belly (RUQ) 05/24/2008 NAVAS DO, MARTY K 465.9 UPPER RESPIRATORY INFECTION 05/24/2008 NAVAS DO, MARTY K 787.01 nausea with vomiting 05/24/2008 NAVAS DO, MARTY K 789.01 abdominal pain in the right upper belly (RUQ) 05/24/2008 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THAISNILE 465.9 UPPER RESPIRATORY INFECTION 05/24/2008 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, NILE 787.01 nausea with vomiting 05/24/2008 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, NILE 789.01 abdominal pain in the right upper belly (RUQ) 05/24/2008 [facility], LYNN R 465.9 UPPER RESPIRATORY INFECTION 05/24/2008 [facility], LYNN R 787.01 nausea with vomiting 05/24/2008 [facility], LYNN R 789.01 abdominal pain in the right upper belly (RUQ) 05/24/2008 NAVAS DO, MARTY K 465.9 UPPER RESPIRATORY INFECTION 05/24/2008 NAVAS DO, MARTY K 787.01 nausea with vomiting 05/24/2008 NAVAS DO, MARTY K 789.01 abdominal pain in the right upper belly (RUQ) 05/24/2008 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, NILE 465.9 UPPER RESPIRATORY INFECTION 05/24/2008 NILE MACEDO APRN 787.01 nausea with vomiting 05/24/2008 HELLEN THAIS HERNANDEZETTE 789.01 abdominal pain in the right upper belly (RUQ) 05/24/2008 MARTY NAVAS DO K 465.9 UPPER RESPIRATORY INFECTION 05/24/2008 NAVAS MARTY AIKEN K 787.01 nausea with vomiting 05/24/2008 NAVAS MARTY AIKEN K 789.01 abdominal pain in the right upper belly (RUQ) 05/24/2008 LYNN BARNES 465.9 UPPER RESPIRATORY INFECTION 05/24/2008 BRITTANY LYNN GILMAN 787.01 nausea with vomiting 05/24/2008 BRITTANY LYNN GILMAN 789.01 abdominal pain in the right upper belly (RUQ) 11/11/2008 LYNN BARNES 296.90 EPISODIC MOOD DISORDERS 11/11/2008 BRITTANY LYNN GILMAN 300.02 GENERALIZED ANXIETY DISORDER 11/11/2008 BRITTANY LYNN GILMAN 780.79 lethargy 11/11/2008 296.90 EPISODIC MOOD DISORDERS 11/11/2008 300.02 GENERALIZED ANXIETY DISORDER 11/11/2008 780.79 lethargy 11/11/2008 296.90 EPISODIC MOOD DISORDERS 11/11/2008 300.02 GENERALIZED ANXIETY DISORDER 11/11/2008 780.79 lethargy 11/11/2008 296.90 EPISODIC MOOD DISORDERS 11/11/2008 300.02 GENERALIZED ANXIETY DISORDER 11/11/2008 780.79 lethargy 11/11/2008 296.90 EPISODIC MOOD DISORDERS 11/11/2008 300.02 GENERALIZED ANXIETY DISORDER 11/11/2008 780.79 lethargy 11/11/2008 296.90 EPISODIC MOOD DISORDERS 11/11/2008 300.02 GENERALIZED ANXIETY DISORDER 11/11/2008 780.79 lethargy 11/11/2008 296.90 EPISODIC MOOD DISORDERS 11/11/2008 300.02 GENERALIZED ANXIETY DISORDER 11/11/2008 780.79 lethargy 11/11/2008 296.90 EPISODIC MOOD DISORDERS 11/11/2008 300.02 GENERALIZED ANXIETY DISORDER 11/11/2008 780.79 lethargy 11/11/2008 LYNN BARNES 296.90 EPISODIC MOOD DISORDERS 11/11/2008 LYNN BARNES 300.02 GENERALIZED ANXIETY DISORDER 11/11/2008 [facility], LYNN R 780.79 lethargy 11/11/2008 [facility], LYNN R 296.90 EPISODIC MOOD DISORDERS 11/11/2008 [facility], LYNN R 300.02 GENERALIZED ANXIETY DISORDER 11/11/2008 [facility], LYNN R 780.79 lethargy 11/11/2008 NAVAS DO, MARTY K 296.90 EPISODIC MOOD DISORDERS 11/11/2008 NAVAS DO, MARTY K 300.02 GENERALIZED ANXIETY DISORDER 11/11/2008 NAVAS DO, MARTY K 780.79 lethargy 11/11/2008 NAVAS DO, MARTY K 296.90 EPISODIC MOOD DISORDERS 11/11/2008 NAVAS DO, MARTY K 300.02 GENERALIZED ANXIETY DISORDER 11/11/2008 NAVAS DO, MARTY K 780.79 lethargy 11/11/2008 NAVAS DO, MARTY K 296.90 EPISODIC MOOD DISORDERS 11/11/2008 NAVAS DO, MARTY K 300.02 GENERALIZED ANXIETY DISORDER 11/11/2008 NAVAS DO, MARTY K 780.79 lethargy 11/11/2008 NAVAS DO, MARTY K 296.90 EPISODIC MOOD DISORDERS 11/11/2008 NAVAS DO, MARTY K 300.02 GENERALIZED ANXIETY DISORDER 11/11/2008 NAVAS DO, MARTY K 780.79 lethargy 11/11/2008 JOMAR FAGAN MD 296.90 EPISODIC MOOD DISORDERS 11/11/2008 JOMAR FAGAN MD 300.02 GENERALIZED ANXIETY DISORDER 11/11/2008 JOMAR FAGAN MD 780.79 lethargy 11/11/2008 NAVAS DO, MARTY K 296.90 EPISODIC MOOD DISORDERS 11/11/2008 NAVAS DO, MARTY K 300.02 GENERALIZED ANXIETY DISORDER 11/11/2008 NAVAS DO, MARTY K 780.79 lethargy 11/11/2008 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, NILE 296.90 EPISODIC MOOD DISORDERS 11/11/2008 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, NILE 300.02 GENERALIZED ANXIETY DISORDER 11/11/2008 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, NILE 780.79 lethargy 11/11/2008 [facility], LYNN R 296.90 EPISODIC MOOD DISORDERS 11/11/2008 [facility], LYNN R 300.02 GENERALIZED ANXIETY DISORDER 11/11/2008 [facility], LYNN R 780.79 lethargy 11/11/2008 NAVAS DO, MARTY K 296.90 EPISODIC MOOD DISORDERS 11/11/2008 NAVAS DO, MARTY K 300.02 GENERALIZED ANXIETY DISORDER 11/11/2008 NAVAS DO, MARTY K 780.79 lethargy 11/11/2008 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, NILE 296.90 EPISODIC MOOD DISORDERS 11/11/2008 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, NILE 300.02 GENERALIZED ANXIETY DISORDER 11/11/2008 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, NILE 780.79 lethargy 11/11/2008 NAVAS DO, MARTY K 296.90 EPISODIC MOOD DISORDERS 11/11/2008 NAVAS DO, MARTY K 300.02 GENERALIZED ANXIETY DISORDER 11/11/2008 NAVAS DO, MARTY K 780.79 lethargy 11/11/2008 [facility], LYNN R 296.90 EPISODIC MOOD DISORDERS 11/11/2008 [facility], LYNN R 300.02 GENERALIZED ANXIETY DISORDER 11/11/2008 [facility], LYNN R 780.79 lethargy 12/13/2008 [facility], LYNN R 333.94 RESTLESS LEGS SYNDROME 12/13/2008 [facility], LYNN R 466.0 ACUTE BRONCHITIS 12/13/2008 333.94 RESTLESS LEGS SYNDROME 12/13/2008 466.0 ACUTE BRONCHITIS 12/13/2008 333.94 RESTLESS LEGS SYNDROME 12/13/2008 466.0 ACUTE BRONCHITIS 12/13/2008 333.94 RESTLESS LEGS SYNDROME 12/13/2008 466.0 ACUTE BRONCHITIS 12/13/2008 333.94 RESTLESS LEGS SYNDROME 12/13/2008 466.0 ACUTE BRONCHITIS 12/13/2008 333.94 RESTLESS LEGS SYNDROME 12/13/2008 466.0 ACUTE BRONCHITIS 12/13/2008 333.94 RESTLESS LEGS SYNDROME 12/13/2008 466.0 ACUTE BRONCHITIS 12/13/2008 333.94 RESTLESS LEGS SYNDROME 12/13/2008 466.0 ACUTE BRONCHITIS 12/13/2008 [facility], LYNN R 333.94 RESTLESS LEGS SYNDROME 12/13/2008 [facility], LYNN R 466.0 ACUTE BRONCHITIS 12/13/2008 [facility], LYNN R 333.94 RESTLESS LEGS SYNDROME 12/13/2008 [facility], LYNN R 466.0 ACUTE BRONCHITIS 12/13/2008 NAVAS DO MARTY K 333.94 RESTLESS LEGS SYNDROME 12/13/2008 NAVAS DO MARTY K 466.0 ACUTE BRONCHITIS 12/13/2008 NAVAS DO MARTY K 333.94 RESTLESS LEGS SYNDROME 12/13/2008 NAVAS DO, MARTY K 466.0 ACUTE BRONCHITIS 12/13/2008 NAVAS DO, MARTY K 333.94 RESTLESS LEGS SYNDROME 12/13/2008 NAVAS DO, MARTY K 466.0 ACUTE BRONCHITIS 12/13/2008 NAVAS DO, MARTY K 333.94 RESTLESS LEGS SYNDROME 12/13/2008 NAVAS DO, MARTY K 466.0 ACUTE BRONCHITIS 12/13/2008 JOMAR FAGAN MD 333.94 RESTLESS LEGS SYNDROME 12/13/2008 JOMAR FAGAN MD 466.0 ACUTE BRONCHITIS 12/13/2008 NAVAS DO, MARTY K 333.94 RESTLESS LEGS SYNDROME 12/13/2008 NAVAS DO, MARTY K 466.0 ACUTE BRONCHITIS 12/13/2008 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, NILE 333.94 RESTLESS LEGS SYNDROME 12/13/2008 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, NILE 466.0 ACUTE BRONCHITIS [facility]/13[facility] RESTLESS LEGS SYNDROME 12/13/2008 [facility] 466.0 ACUTE BRONCHITIS 12/13/2008 NAVAS DO, MARTY K 333.94 RESTLESS LEGS SYNDROME 12/13/2008 NAVAS DO, MARTY K 466.0 ACUTE BRONCHITIS 12/13/2008 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, NILE 333.94 RESTLESS LEGS SYNDROME 12/13/2008 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, NILE 466.0 ACUTE BRONCHITIS 12/13/2008 NAVAS DO, AMRTY K 333.94 RESTLESS LEGS SYNDROME 12/13/2008 NAVAS DO, MARTY K 466.0 ACUTE BRONCHITIS 12/13/2008 [facility] 333.94 RESTLESS LEGS SYNDROME 12/13/2008 [facility] 466.0 ACUTE BRONCHITIS 12/22/2008 [facility], LYNN R 786.07 wheezing [as a symptom] 12/22/2008 [facility], LYNN R 786.2 cough 12/22/2008 786.07 wheezing [as a symptom] 12/22/2008 786.2 cough 12/22/2008 786.07 wheezing [as a symptom] 12/22/2008 786.2 cough 12/22/2008 786.07 wheezing [as a symptom] 12/22/2008 786.2 cough 12/22/2008 786.07 wheezing [as a symptom] 12/22/2008 786.2 cough 12/22/2008 786.07 wheezing [as a symptom] 12/22/2008 786.2 cough 12/22/2008 786.07 wheezing [as a symptom] 12/22/2008 786.2 cough 12/22/2008 786.07 wheezing [as a symptom] 12/22/2008 786.2 cough 12/22/2008 [facility], LYNN R 786.07 wheezing [as a symptom] 12/22/2008 [facility], LYNN R 786.2 cough 12/22/2008 [facility], LYNN R 786.07 wheezing [as a symptom] 12/22/2008 [facility], LYNN R 786.2 cough 12/22/2008 [facility], MARTY K 786.07 wheezing [as a symptom] 12/22/2008 [facility] DO, MARTY K 786.2 cough 12/22/2008 [facility] DO, MARTY K 786.07 wheezing [as a symptom] 12/22/2008 NAV[facility] DO, MARTY K 786.2 cough 12/22/2008 NAV[facility] DO, MARTY K 786.07 wheezing [as a symptom] 12/22/2008 NAV[facility] DO, MARTY K 786.2 cough 12/22/2008 NAV[facility] DO, MARTY K 786.07 wheezing [as a symptom] 12/22/2008 [facility] DO, MARTY K 786.2 cough 12/22/2008 JOMAR FAGAN MD 786.07 wheezing [as a symptom] 12/22/2008 JOMAR FAGAN MD 786.2 cough 12/22/2008 [facility] DO, MARTY K 786.07 wheezing [as a symptom] 12/22/2008 [facility] DO, MARTY K 786.2 cough 12/22/2008 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, NILE 786.07 wheezing [as a symptom] 12/22/2008 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, NILE 786.2 cough 12/22/2008 [facility], LYNN R 786.07 wheezing [as a symptom] 12/22/2008 [facility], LYNN R 786.2 cough 12/22/2008 NAV[facility] DO, MARTY K 786.07 wheezing [as a symptom] 12/22/2008 NAV[facility] DO, MARTY K 786.2 cough 12/22/2008 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, NILE 786.07 wheezing [as a symptom] 12/22/2008 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, NILE 786.2 cough 12/22/2008 NAV[facility] DO, MARTY K 786.07 wheezing [as a symptom] 12/22/2008 NAV[facility] DO, MARTY K 786.2 cough 12/22/2008 [facility], LNYN R 786.07 wheezing [as a symptom] 12/22/2008 [facility], LYNN R 786.2 cough 01/20/2009 [facility], LYNN R 784.0 headache 01/20/2009 784.0 headache 01/20/2009 784.0 headache 01/20/2009 784.0 headache 01/20/2009 784.0 headache 01/20/2009 784.0 headache 01/20/2009 784.0 headache 01/20/2009 784.0 headache 01/20/2009 [facility], LYNN R 784.0 headache 01/20/2009 [facility], L[facility] R 784.0 headache 01/20/2009 [facility] DO, MARTY K 784.0 headache 01/20/2009 NAV[facility] DO, MARTY K 784.0 headache 01/20/2009 [facility] DO, MARTY K 784.0 headache 01/20/2009 [facility], MARTY K 784.0 headache 01/20/2009 RYLAN GRAHAM, JOMAR 784.0 headache 01/20/2009 [facility] DO, MARTY K 784.0 headache 01/20/2009 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, NILE 784.0 headache 01/20/2009 [facility], LYNN R 784.0 headache 01/20/2009 NAV[facility] DO, MARTY K 784.0 headache 01/20/2009 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, NILE 784.0 headache 01/20/2009 [facility] DO, MARTY K 784.0 headache 01/20/2009 [facility], LYNN R 784.0 headache 03/06/2009 [facility], L[facility] R 300.00 ANXIETY UNSPEC 03/06/2009 300.00 ANXIETY UNSPEC 03/06/2009 300.00 ANXIETY UNSPEC 03/06/2009 300.00 ANXIETY UNSPEC 03/06/2009 300.00 ANXIETY UNSPEC 03/06/2009 300.00 ANXIETY UNSPEC 03/06/2009 300.00 ANXIETY UNSPEC 03/06/2009 300.00 ANXIETY UNSPEC 03/06/2009 [facility], LYNN R 300.00 ANXIETY UNSPEC 03/06/2009 [facility], L[facility] R 300.00 ANXIETY UNSPEC 03/06/2009 [facility], MARTY K 300.00 ANXIETY UNSPEC 03/06/2009 [facility] DO, MARTY K 300.00 ANXIETY UNSPEC 03/06/2009 NAV[facility] DO, MARTY K 300.00 ANXIETY UNSPEC 03/06/2009 [facility] DO, MARTY K 300.00 ANXIETY UNSPEC 03/06/2009 JOMAR FAGAN MD 300.00 ANXIETY UNSPEC 03/06/2009 [facility], MARTY K 300.00 ANXIETY UNSPEC 03/06/2009 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, NILE 300.00 ANXIETY UNSPEC 03/06/2009 [facility], LYNN R 300.00 ANXIETY UNSPEC 03/06/2009 [facility] DO, MARTY K 300.00 ANXIETY UNSPEC 03/06/2009 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, NILE 300.00 ANXIETY UNSPEC 03/06/2009 [facility] DO, MARTY K 300.00 ANXIETY UNSPEC 03/06/2009 [facility], LYNN R 300.00 ANXIETY UNSPEC 06/01/2009 [facility], LYNN R 079.99 UNSPECIFIED VIRAL INFECTION IN CONDITIONS CLASSIFIED ELSEWHERE AND OF UNSPECIFIED SITE 06/01/2009 [facility], LYNN R 787.91 [place] 06/01/2009 079.99 UNSPECIFIED VIRAL INFECTION IN CONDITIONS CLASSIFIED ELSEWHERE AND OF UNSPECIFIED SITE 06/01/2009 787.91 [place] 06/01/2009 079.99 UNSPECIFIED VIRAL INFECTION IN CONDITIONS CLASSIFIED ELSEWHERE AND OF UNSPECIFIED SITE 06/01/2009 787.91 [place] 06/01/2009 079.99 UNSPECIFIED VIRAL INFECTION IN CONDITIONS CLASSIFIED ELSEWHERE AND OF UNSPECIFIED SITE 06/01/2009 787.91 [place] 06/01/2009 079.99 UNSPECIFIED VIRAL INFECTION IN CONDITIONS CLASSIFIED ELSEWHERE AND OF UNSPECIFIED SITE 06/01/2009 787.91 [place] 06/01/2009 079.99 UNSPECIFIED VIRAL INFECTION IN CONDITIONS CLASSIFIED ELSEWHERE AND OF UNSPECIFIED SITE 06/01/2009 787.91 [place] 06/01/2009 079.99 UNSPECIFIED VIRAL INFECTION IN CONDITIONS CLASSIFIED ELSEWHERE AND OF UNSPECIFIED SITE 06/01/2009 787.91 [place] 06/01/2009 079.99 UNSPECIFIED VIRAL INFECTION IN CONDITIONS CLASSIFIED ELSEWHERE AND OF UNSPECIFIED SITE 06/01/2009 787.91 [place]ARR[place] 06/01/2009 [facility], LYNN R 079.99 UNSPECIFIED VIRAL INFECTION IN CONDITIONS CLASSIFIED ELSEWHERE AND OF UNSPECIFIED SITE 06/01/2009 [facility], LYNN R 787.91 [place] 06/01/2009 [facility], LYNN R 079.99 UNSPECIFIED VIRAL INFECTION IN CONDITIONS CLASSIFIED ELSEWHERE AND OF UNSPECIFIED SITE 06/01/2009 [facility], LYNN R 787.91 [place] 06/01/2009 NAV[facility] DO MARTY K 079.99 UNSPECIFIED VIRAL INFECTION IN CONDITIONS CLASSIFIED ELSEWHERE AND OF UNSPECIFIED SITE 06/01/2009 [facility] DO MARTY K 787.91 [place] 06/01/2009 NAV[facility] DO MARTY K 079.99 UNSPECIFIED VIRAL INFECTION IN CONDITIONS CLASSIFIED ELSEWHERE AND OF UNSPECIFIED SITE 06/01/2009 [facility] DO, MARTY K 787.91 [place] 06/01/2009 NAV[facility] DO, MARTY K 079.99 UNSPECIFIED VIRAL INFECTION IN CONDITIONS CLASSIFIED ELSEWHERE AND OF UNSPECIFIED SITE 06/01/2009 [facility] DO MARTY K 787.91 [place] 06/01/2009 NAV[facility] DO MARTY K 079.99 UNSPECIFIED VIRAL INFECTION IN CONDITIONS CLASSIFIED ELSEWHERE AND OF UNSPECIFIED SITE 06/01/2009 NAV[facility] DO MARTY K 787.91 [place] 06/01/2009 JOMAR FAGAN MD 079.99 UNSPECIFIED VIRAL INFECTION IN CONDITIONS CLASSIFIED ELSEWHERE AND OF UNSPECIFIED SITE 06/01/2009 JOMAR FAGAN MD7.91 [place] 06/01/2009 [facility] DO MARTY K 079.99 UNSPECIFIED VIRAL INFECTION IN CONDITIONS CLASSIFIED ELSEWHERE AND OF UNSPECIFIED SITE 06/01/2009 [facility] DO MARTY K 787.91 [place] 06/01/2009 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, NILE 079.99 UNSPECIFIED VIRAL INFECTION IN CONDITIONS CLASSIFIED ELSEWHERE AND OF UNSPECIFIED SITE 06/01/2009 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, NILE 787.91 [place] 06/01/2009 [facility], LYNN R 079.99 UNSPECIFIED VIRAL INFECTION IN CONDITIONS CLASSIFIED ELSEWHERE AND OF UNSPECIFIED SITE 06/01/2009 [facility], LYNN R 787.91 [place] 06/01/2009 NAV[facility] DO MARTY K 079.99 UNSPECIFIED VIRAL INFECTION IN CONDITIONS CLASSIFIED ELSEWHERE AND OF UNSPECIFIED SITE 06/01/2009 [facility] DO MARTY K 787.91 [place] 06/01/2009 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, NILE 079.99 UNSPECIFIED VIRAL INFECTION IN CONDITIONS CLASSIFIED ELSEWHERE AND OF UNSPECIFIED SITE 06/01/2009 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, NILE 787.91 [place] 06/01/2009 YOSEF AIKEN MARTY K 079.99 UNSPECIFIED VIRAL INFECTION IN CONDITIONS CLASSIFIED ELSEWHERE AND OF UNSPECIFIED SITE 06/01/2009 OFE NAVAS DOA K 787.91 [place] 06/01/2009 [facility], LYNN R 079.99 UNSPECIFIED VIRAL INFECTION IN CONDITIONS CLASSIFIED ELSEWHERE AND OF UNSPECIFIED SITE 06/01/2009 [facility], LYNN R 787.91 [place] 09/12/2009 [facility], LYNN R V68.1 ISSUE OF REPEAT PRESCRIPTIONS 09/12/2009 V68.1 ISSUE OF REPEAT PRESCRIPTIONS 09/12/2009 V68.1 ISSUE OF REPEAT PRESCRIPTIONS 09/12/2009 V68.1 ISSUE OF REPEAT PRESCRIPTIONS 09/12/2009 V68.1 ISSUE OF REPEAT PRESCRIPTIONS 09/12/2009 V68.1 ISSUE OF REPEAT PRESCRIPTIONS 09/12/2009 V68.1 ISSUE OF REPEAT PRESCRIPTIONS 09/12/2009 V68.1 ISSUE OF REPEAT PRESCRIPTIONS 09/12/2009 [facility], LYNN R V68.1 ISSUE OF REPEAT PRESCRIPTIONS 09/12/2009 [facility], LYNN R V68.1 ISSUE OF REPEAT PRESCRIPTIONS 09/12/2009 NAV[facility] DO MARTY K V68.1 ISSUE OF REPEAT PRESCRIPTIONS 09/12/2009 NAV[facility] DO MARTY K V68.1 ISSUE OF REPEAT PRESCRIPTIONS 09/12/2009 NAV[facility] DO MARTY K V68.1 ISSUE OF REPEAT PRESCRIPTIONS 09/12/2009 NAV[facility] DO MARTY K V68.1 ISSUE OF REPEAT PRESCRIPTIONS 09/12/2009 JOMAR FAGAN MD V68.1 ISSUE OF REPEAT PRESCRIPTIONS 09/12/2009 YOSEF AIKEN MARTY K V68.1 ISSUE OF REPEAT PRESCRIPTIONS 09/12/2009 HELLEN HERNANDEZ NILE V68.1 ISSUE OF REPEAT PRESCRIPTIONS 09/12/2009 [facility], LYNN R V68.1 ISSUE OF REPEAT PRESCRIPTIONS 09/12/2009 NAVAS DO MARTY K V68.1 ISSUE OF REPEAT PRESCRIPTIONS 09/12/2009 HELLENLUDY VUN NILE V68.1 ISSUE OF REPEAT PRESCRIPTIONS 09/12/2009 NAV[facility] DO MARTY K V68.1 ISSUE OF REPEAT PRESCRIPTIONS 09/12/2009 [facility], LYNN R V68.1 ISSUE OF REPEAT PRESCRIPTIONS 12/15/2009 [facility] 493.92 ASTHMA, UNSPECIFIED, WITH (ACUTE) EXACERBATION 12/15/2009 493.92 ASTHMA, UNSPECIFIED, WITH (ACUTE) EXACERBATION 12/15/2009 493.92 ASTHMA, UNSPECIFIED, WITH (ACUTE) EXACERBATION 12/15/2009 493.92 ASTHMA, UNSPECIFIED, WITH (ACUTE) EXACERBATION 12/15/2009 493.92 ASTHMA, UNSPECIFIED, WITH (ACUTE) EXACERBATION 12/15/2009 493.92 ASTHMA, UNSPECIFIED, WITH (ACUTE) EXACERBATION 12/15/2009 493.92 ASTHMA, UNSPECIFIED, WITH (ACUTE) EXACERBATION 12/15/2009 493.92 ASTHMA, UNSPECIFIED, WITH (ACUTE) EXACERBATION 12/15/2009 [facility], LYNN R 493.92 ASTHMA, UNSPECIFIED, WITH (ACUTE) EXACERBATION 12/15/2009 [facility], LYNN R 493.92 ASTHMA, UNSPECIFIED, WITH (ACUTE) EXACERBATION 12/15/2009 NAV[facility] DO, MARTY K 493.92 ASTHMA, UNSPECIFIED, WITH (ACUTE) EXACERBATION 12/15/2009 NAV[facility] DO MARTY K 493.92 ASTHMA, UNSPECIFIED, WITH (ACUTE) EXACERBATION 12/15/2009 NAV[facility] DO MARTY K 493.92 ASTHMA, UNSPECIFIED, WITH (ACUTE) EXACERBATION 12/15/2009 [facility] DO MARTY K 493.92 ASTHMA, UNSPECIFIED, WITH (ACUTE) EXACERBATION 12/15/2009 JOMAR FAGAN MD 493.92 ASTHMA, UNSPECIFIED, WITH (ACUTE) EXACERBATION 12/15/2009 NAV[facility] DO, MARTY K 493.92 ASTHMA, UNSPECIFIED, WITH (ACUTE) EXACERBATION 12/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, 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 493.92 ASTHMA, UNSPECIFIED, WITH (ACUTE) EXACERBATION 12/15/2009 [facility], LYNN R 493.92 ASTHMA, UNSPECIFIED, WITH (ACUTE) EXACERBATION 12/15/2009 NAV[facility] DO MARTY K 493.92 ASTHMA, UNSPECIFIED, WITH (ACUTE) EXACERBATION 12/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, 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 493.92 ASTHMA, UNSPECIFIED, WITH (ACUTE) EXACERBATION 12/15/2009 NAV[facility] DO MARTY K 493.92 ASTHMA, UNSPECIFIED, WITH (ACUTE) EXACERBATION 12/15/2009 [facility], LYNN R 493.92 ASTHMA, UNSPECIFIED, WITH (ACUTE) EXACERBATION 01/23/2010 [facility], LYNN R 296.32 MO DEPRESSIVE RECURRENT MODERATE 01/23/2010 296.32 MO DEPRESSIVE RECURRENT MODERATE 01/23/2010 296.32 MO DEPRESSIVE RECURRENT MODERATE 01/23/2010 296.32 MO DEPRESSIVE RECURRENT MODERATE 01/23/2010 296.32 MO DEPRESSIVE RECURRENT MODERATE 01/23/2010 296.32 MO DEPRESSIVE RECURRENT MODERATE 01/23/2010 296.32 MO DEPRESSIVE RECURRENT MODERATE 01/23/2010 296.32 MO DEPRESSIVE RECURRENT MODERATE 01/23/2010 [facility], LYNN R 296.32 MO DEPRESSIVE RECURRENT MODERATE 01/23/2010 [facility], LYNN R 296.32 MO DEPRESSIVE RECURRENT MODERATE 01/23/2010 NAV[facility] DO, MARTY K 296.32 MO DEPRESSIVE RECURRENT MODERATE 01/23/2010 NAV[facility] DO, MARTY K 296.32 MO DEPRESSIVE RECURRENT MODERATE 01/23/2010 NAV[facility] DO, MARTY K 296.32 MO DEPRESSIVE RECURRENT MODERATE 01/23/2010 [facility] DO, MARTY K 296.32 MO DEPRESSIVE RECURRENT MODERATE 01/23/2010 JOMAR FAGAN MD 296.32 MO DEPRESSIVE RECURRENT MODERATE 01/23/2010 [facility] DO, MARTY K 296.32 MO DEPRESSIVE RECURRENT MODERATE 01/23/2010 NILE MACEDO APRN 296.32 MO DEPRESSIVE RECURRENT MODERATE 01/23/2010 [facility], LYNN R 296.32 MO DEPRESSIVE RECURRENT MODERATE 01/23/2010 NAV[facility] DO, MARTY K 296.32 MO DEPRESSIVE RECURRENT MODERATE 01/23/2010 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 NILE 296.32 MO DEPRESSIVE RECURRENT MODERATE 01/23/2010 NAV[facility] DO, MARTY K 296.32 MO DEPRESSIVE RECURRENT MODERATE 01/23/2010 [facility], YLNN R 296.32 MO DEPRESSIVE RECURRENT MODERATE 02/10/2010 Ot 787.01 02/12/2010 [facility] 558.9 GASTROENTERITIS NONINFECTIOUS 02/12/2010 558.9 GASTROENTERITIS NONINFECTIOUS 02/12/2010 558.9 GASTROENTERITIS NONINFECTIOUS 02/12/2010 558.9 GASTROENTERITIS NONINFECTIOUS 02/12/2010 558.9 GASTROENTERITIS NONINFECTIOUS 02/12/2010 558.9 GASTROENTERITIS NONINFECTIOUS 02/12/2010 558.9 GASTROENTERITIS NONINFECTIOUS 02/12/2010 558.9 GASTROENTERITIS NONINFECTIOUS 02/12/2010 [facility]58[facility]9 GASTROENTERITIS NONINFECTIOUS 02/12/2010 [facility] 558.9 GASTROENTERITIS NONINFECTIOUS 02/12/2010 [facility] DO, MARTY K 558.9 GASTROENTERITIS NONINFECTIOUS 02/12/2010 NAV[facility] DO, MARTY K 558.9 GASTROENTERITIS NONINFECTIOUS 02/12/2010 NAV[facility] DO, MARTY K 558.9 GASTROENTERITIS NONINFECTIOUS 02/12/2010 [facility] DO, MARTY K 558.9 GASTROENTERITIS NONINFECTIOUS 02/12/2010 RYLAN GRAHAM, JOMAR 558.9 GASTROENTERITIS NONINFECTIOUS 02/12/2010 NAV[facility] DO, MARTY K 558.9 GASTROENTERITIS NONINFECTIOUS 02/12/2010 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, 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 558.9 GASTROENTERITIS NONINFECTIOUS 02/12/2010 [facility], LYNN [place] 558.9 GASTROENTERITIS NONINFECTIOUS 02/12/2010 NAVAS DO, MARTY K 558.9 GASTROENTERITIS NONINFECTIOUS 02/12/2010 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, NILE 558.9 GASTROENTERITIS NONINFECTIOUS 02/12/2010 NAV[facility] DO, MARTY K 558.9 GASTROENTERITIS NONINFECTIOUS 02/12/2010 [facility], LYNN [place] 558.9 GASTROENTERITIS NONINFECTIOUS 04/27/2010 [facility], LYNN [place]send 706.2 SEBACEOUS CYST 04/27/2010 [facility], LYNN R V76.10 BREAST SCREENING UNSPECIFIED 04/27/2010 706.2 SEBACEOUS CYST 04/27/2010 V76.10 BREAST SCREENING UNSPECIFIED 04/27/2010 706.2 SEBACEOUS CYST 04/27/2010 V76.10 BREAST SCREENING UNSPECIFIED 04/27/2010 706.2 SEBACEOUS CYST 04/27/2010 V76.10 BREAST SCREENING UNSPECIFIED 04/27/2010 706.2 SEBACEOUS CYST 04/27/2010 V76.10 BREAST SCREENING UNSPECIFIED 04/27/2010 706.2 SEBACEOUS CYST 04/27/2010 V76.10 BREAST SCREENING UNSPECIFIED 04/27/2010 706.2 SEBACEOUS CYST 04/27/2010 V76.10 BREAST SCREENING UNSPECIFIED 04/27/2010 706.2 SEBACEOUS CYST 04/27/2010 V76.10 BREAST SCREENING UNSPECIFIED 04/27/2010 [facility], LYNN R 706.2 SEBACEOUS CYST 04/27/2010 [facility], LYNN R V76.10 BREAST SCREENING UNSPECIFIED 04/27/2010 [facility], LYNN R 706.2 SEBACEOUS CYST 04/27/2010 [facility], LYNN R V76.10 BREAST SCREENING UNSPECIFIED 04/27/2010 NAVAS DO, MARTY K 706.2 SEBACEOUS CYST 04/27/2010 NAV[facility] DO, MARTY K V76.10 BREAST SCREENING UNSPECIFIED 04/27/2010 NAV[facility] DO, MARTY K 706.2 SEBACEOUS CYST 04/27/2010 NAV[facility] DO, MARTY K V76.10 BREAST SCREENING UNSPECIFIED 04/27/2010 NAV[facility] DO, MARTY K 706.2 SEBACEOUS CYST 04/27/2010 NAV[facility] DO, MARTY K V76.10 BREAST SCREENING UNSPECIFIED 04/27/2010 NAV[facility] DO, MARTY K 706.2 SEBACEOUS CYST 04/27/2010 NAV[facility] DO, MARTY K V76.10 BREAST SCREENING UNSPECIFIED 04/27/2010 JOMAR FAGAN MD 706.2 SEBACEOUS CYST 04/27/2010 JOMAR FAGAN MD V76.10 BREAST SCREENING UNSPECIFIED 04/27/2010 NAV[facility] DO, MARTY K 706.2 SEBACEOUS CYST 04/27/2010 NAV[facility] DO, MARTY K V76.10 BREAST SCREENING UNSPECIFIED 04/27/2010 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, 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 706.2 SEBACEOUS CYST 04/27/2010 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, NILE V76.10 BREAST SCREENING UNSPECIFIED 04/27/2010 [facility], LYNN R 706.2 SEBACEOUS CYST 04/27/2010 [facility], LYNN R V76.10 BREAST SCREENING UNSPECIFIED 04/27/2010 NAVAS DO, MARTY K 706.2 SEBACEOUS CYST 04/27/2010 NAV[facility] DO, MARTY K V76.10 BREAST SCREENING UNSPECIFIED 04/27/2010 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, 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 706.2 SEBACEOUS CYST 04/27/2010 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, NILE V76.10 BREAST SCREENING UNSPECIFIED 04/27/2010 NAVAS DO, MARTY K 706.2 SEBACEOUS CYST 04/27/2010 NAVAS DO, MARTY K V76.10 BREAST SCREENING UNSPECIFIED 04/27/2010 [facility], LYNN R 706.2 SEBACEOUS CYST 04/27/2010 [facility], LYNN R V76.10 BREAST SCREENING UNSPECIFIED 07/04/2010 [facility], LYNN [place] 724.5 BACK PAIN, GENERAL 07/04/2010 [facility], LYNN R 728.85 SPASM OF MUSCLE 07/04/2010 724.5 BACK PAIN, GENERAL 07/04/2010 728.85 SPASM OF MUSCLE 07/04/2010 724.5 BACK PAIN, GENERAL 07/04/2010 728.85 SPASM OF MUSCLE 07/04/2010 724.5 BACK PAIN, GENERAL 07/04/2010 728.85 SPASM OF MUSCLE 07/04/2010 724.5 BACK PAIN, GENERAL 07/04/2010 728.85 SPASM OF MUSCLE 07/04/2010 724.5 BACK PAIN, GENERAL 07/04/2010 728.85 SPASM OF MUSCLE 07/04/2010 724.5 BACK PAIN, GENERAL 07/04/2010 728.85 SPASM OF MUSCLE 07/04/2010 724.5 BACK PAIN, GENERAL 07/04/2010 728.85 SPASM OF MUSCLE 07/04/2010 [facility], LYNN R 724.5 BACK PAIN, GENERAL 07/04/2010 [facility], LYNN R 728.85 SPASM OF MUSCLE 07/04/2010 [facility], LYNN R 724.5 BACK PAIN, GENERAL 07/04/[address] [facility] 728.85 SPASM OF MUSCLE 07/04/2010 NAVAS DO, MARTY K 724.5 BACK PAIN, GENERAL 07/04/2010 NAVAS DO, MARTY K 728.85 SPASM OF MUSCLE 07/04/2010 NAVAS DO, MARTY K 724.5 BACK PAIN, GENERAL 07/04/2010 NAVAS DO, MARTY K 728.85 SPASM OF MUSCLE 07/04/2010 NAVAS DO, MARTY K 724.5 BACK PAIN, GENERAL 07/04/2010 NAV[facility] DO, MARTY K 728.85 SPASM OF MUSCLE 07/04/2010 NAVAS DO, MARTY K 724.5 BACK PAIN, GENERAL 07/04/2010 NAV[facility] DO, MARTY K 728.85 SPASM OF MUSCLE 07/04/2010 JOMAR FAGAN MD 724.5 BACK PAIN, GENERAL 07/04/2010 JOMAR FAGAN MD 728.85 SPASM OF MUSCLE 07/04/2010 NAVAS DO, MARTY K 724.5 BACK PAIN, GENERAL 07/04/2010 NAVAS DO, MARTY K 728.85 SPASM OF MUSCLE 07/04/2010 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, 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 724.5 BACK PAIN, GENERAL 07/04/2010 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, NILE 728.85 SPASM OF MUSCLE 07/04/2010 [facility], LYNN R 724.5 BACK PAIN, GENERAL 07/04/2010 [facility], LYNN R 728.85 SPASM OF MUSCLE 07/04/2010 NAVAS DOOFEA K 724.5 BACK PAIN, GENERAL 07/04/2010 NAVAS DO MARTY K 728.85 SPASM OF MUSCLE 07/04/2010 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, NILE 724.5 BACK PAIN, GENERAL 07/04/2010 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, NILE 728.85 SPASM OF MUSCLE 07/04/2010 NAV[facility] DO, MARTY K 724.5 BACK PAIN, GENERAL 07/04/2010 NAVAS DO, MARTY K 728.85 SPASM OF MUSCLE 07/04/2010 [facility], LYNN R 724.5 BACK PAIN, GENERAL 07/04/2010 [facility], LYNN R 728.85 SPASM OF MUSCLE 06/13/2011 [facility], LYNN R V65.42 COUNSELING - SMOKING CESSATION 06/13/2011 V65.42 COUNSELING - SMOKING CESSATION 06/13/2011 V65.42 COUNSELING - SMOKING CESSATION 06/13/2011 V65.42 COUNSELING - SMOKING CESSATION 06/13/2011 V65.42 COUNSELING - SMOKING CESSATION 06/13/2011 V65.42 COUNSELING - SMOKING CESSATION 06/13/2011 V65.42 COUNSELING - SMOKING CESSATION 06/13/2011 V65.42 COUNSELING - SMOKING CESSATION 06/13/2011 [facility], LYNN R V65.42 COUNSELING - SMOKING CESSATION 06/13/2011 [facility], LYNN R V65.42 COUNSELING - SMOKING CESSATION 06/13/2011 YOSEF AIKEN MARTY K V65.42 COUNSELING - SMOKING CESSATION 06/13/2011 NAVAS DO MARTY K V65.42 COUNSELING - SMOKING CESSATION 06/13/2011 NAVAS DO MARTY K V65.42 COUNSELING - SMOKING CESSATION 06/13/2011 NAV[facility] DO MARTY K V65.42 COUNSELING - SMOKING CESSATION 06/13/2011 JOMAR FAGAN MD V65.42 COUNSELING - SMOKING CESSATION 06/13/2011 NAV[facility] DO MARTY K V65.42 COUNSELING - SMOKING CESSATION 06/13/2011 HELLEN HERNANDEZ NILE V65.42 COUNSELING - SMOKING CESSATION 06/13/2011 [facility], LYNN R V65.42 COUNSELING - SMOKING CESSATION 06/13/2011 NAVAS MARTY AIKEN K V65.42 COUNSELING - SMOKING CESSATION 06/13/2011 NILE MACEDO APRN V65.42 COUNSELING - SMOKING CESSATION 06/13/2011 NAVAS MARTY AIKEN K V65.42 COUNSELING - SMOKING CESSATION 06/13/2011 [facility], LYNN R V65.42 COUNSELING - SMOKING CESSATION 06/17/2011 [facility], LYNN R 496 CHRONIC OBSTRUCTIVE PULMONARY DISEASE 06/17/2011 [facility], LYNN R V65.42 Patient Education - Alcohol 06/17/2011 496 CHRONIC OBSTRUCTIVE PULMONARY DISEASE 06/17/2011 V65.42 Patient Education - Alcohol 06/17/2011 496 CHRONIC OBSTRUCTIVE PULMONARY DISEASE 06/17/2011 V65.42 Patient Education - Alcohol 06/17/2011 496 CHRONIC OBSTRUCTIVE PULMONARY DISEASE 06/17/2011 V65.42 Patient Education - Alcohol 06/17/2011 496 CHRONIC OBSTRUCTIVE PULMONARY DISEASE 06/17/2011 V65.42 Patient Education - Alcohol 06/17/2011 496 CHRONIC OBSTRUCTIVE PULMONARY DISEASE 06/17/2011 V65.42 Patient Education - Alcohol 06/17/2011 496 CHRONIC OBSTRUCTIVE PULMONARY DISEASE 06/17/2011 V65.42 Patient Education - Alcohol 06/17/2011 496 CHRONIC OBSTRUCTIVE PULMONARY DISEASE 06/17/2011 V65.42 Patient Education - Alcohol 06/17/2011 [facility], LYNN R 496 CHRONIC OBSTRUCTIVE PULMONARY DISEASE 06/17/2011 [facility], LYNN R V65.42 Patient Education - Alcohol 06/17/2011 [facility], LYNN R 496 CHRONIC OBSTRUCTIVE PULMONARY DISEASE 06/17/2011 [facility], LYNN R V65.42 Patient Education - Alcohol 06/17/2011 NAVAS DO MARTY K 496 CHRONIC OBSTRUCTIVE PULMONARY DISEASE 06/17/2011 NAVAS DO MARTY K V65.42 Patient Education - Alcohol 06/17/2011 NAVAS DO MARTY K 496 CHRONIC OBSTRUCTIVE PULMONARY DISEASE 06/17/2011 NAVAS DO MARTY K V65.42 Patient Education - Alcohol 06/17/2011 NAVAS DO MARTY K 496 CHRONIC OBSTRUCTIVE PULMONARY DISEASE 06/17/2011 NAVAS DO MARTY K V65.42 Patient Education - Alcohol 06/17/2011 NAVAS DO MARTY K 496 CHRONIC OBSTRUCTIVE PULMONARY DISEASE 06/17/2011 NAVAS DO MARTY K V65.42 Patient Education - Alcohol 06/17/2011 JOMAR FAGAN MD CHRONIC OBSTRUCTIVE PULMONARY DISEASE 06/17/2011 JOMAR FAGAN MD V65.42 Patient Education - Alcohol 06/17/2011 NAVAS DO MARTY K 496 CHRONIC OBSTRUCTIVE PULMONARY DISEASE 06/17/2011 NAVAS DO, MARTY K V65.42 Patient Education - Alcohol 06/17/2011 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, 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 496 CHRONIC OBSTRUCTIVE PULMONARY DISEASE 06/17/2011 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, NILE V65.42 Patient Education - Alcohol 06/17/2011 [facility], LYNN [place] 496 CHRONIC OBSTRUCTIVE PULMONARY DISEASE 06/17/2011 [facility], L[place]NN [place] V65.42 Patient Education - Alcohol 06/17/2011 NAVAS DO MARTY K 496 CHRONIC OBSTRUCTIVE PULMONARY DISEASE 06/17/2011 NAVAS DO MARTY K V65.42 Patient Education - Alcohol 06/17/2011 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, 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 496 CHRONIC OBSTRUCTIVE PULMONARY DISEASE 06/17/2011 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, 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 V65.42 Patient Education - Alcohol 06/17/2011 NAVAS DO MARTY K 496 CHRONIC OBSTRUCTIVE PULMONARY DISEASE 06/17/2011 NAVAS DO MARTY K V65.42 Patient Education - Alcohol 06/17/2011 [facility], LYNN [place] 49Marry CHRONIC OBSTRUCTIVE PULMONARY DISEASE 06/17/2011 [facility], L[place] V65.42 Patient Education - Alcohol 07/31/2011 [facility]24.1 upper back pain (between shoulder blades) 07/31/2011 724.1 upper back pain (between shoulder blades) 07/31/2011 724.1 upper back pain (between shoulder blades) 07/31/2011 724.1 upper back pain (between shoulder blades) 07/31/2011 724.1 upper back pain (between shoulder blades) 07/31/2011 724.1 upper back pain (between shoulder blades) 07/31/2011 724.1 upper back pain (between shoulder blades) 07/31/2011 724.1 upper back pain (between shoulder blades) 07/31/2011 [facility]1 upper back pain (between shoulder blades) 07/31/2011 [facility], LNYN R 724.1 upper back pain (between shoulder blades) 07/31/2011 NAVAS DO, MARTY K 724.1 upper back pain (between shoulder blades) 07/31/2011 NAVAS DO, MARTY K 724.1 upper back pain (between shoulder blades) 07/31/2011 NAVAS DO, MARTY K 724.1 upper back pain (between shoulder blades) 07/31/2011 NAVAS DO, MARTY K 724.1 upper back pain (between shoulder blades) 07/31/2011 JOMAR FAGAN MD 724.1 upper back pain (between shoulder blades) 07/31/2011 NAVAS DO, MARTY K 724.1 upper back pain (between shoulder blades) 07/31/2011 NILE MACEDO APRN 724.1 upper back pain (between shoulder blades) 07/31/2011 [facility], LYNN R 724.1 upper back pain (between shoulder blades) 07/31/2011 NAVAS DOOFEA K 724.1 upper back pain (between shoulder blades) 07/31/2011 NILE MACEDO APRN 724.1 upper back pain (between shoulder blades) 07/31/2011 OFE NAVAS DOA K 724.1 upper back pain (between shoulder blades) 07/31/2011 [facility], LYNN R 724.1 upper back pain (between shoulder blades) 12/16/2011 [facility], LYNN R 268.9 VITAMIN D DEFICIENCY 12/16/2011 [facility], LYNN R 272.4 DYSLIPIDEMIA 12/16/2011 [facility], LYNN R 280.9 IRON DEFICIENCY ANEMIA UNSPECIFIED 12/16/2011 268.9 VITAMIN D DEFICIENCY 12/16/2011 272.4 DYSLIPIDEMIA 12/16/2011 280.9 IRON DEFICIENCY ANEMIA UNSPECIFIED 12/16/2011 268.9 VITAMIN D DEFICIENCY 12/16/2011 272.4 DYSLIPIDEMIA 12/16/2011 280.9 IRON DEFICIENCY ANEMIA UNSPECIFIED 12/16/2011 268.9 VITAMIN D DEFICIENCY 12/16/2011 272.4 DYSLIPIDEMIA 12/16/2011 280.9 IRON DEFICIENCY ANEMIA UNSPECIFIED 12/16/2011 268.9 VITAMIN D DEFICIENCY 12/16/2011 272.4 DYSLIPIDEMIA 12/16/2011 280.9 IRON DEFICIENCY ANEMIA UNSPECIFIED 12/16/2011 268.9 VITAMIN D DEFICIENCY 12/16/2011 272.4 DYSLIPIDEMIA 12/16/2011 280.9 IRON DEFICIENCY ANEMIA UNSPECIFIED 12/16/2011 268.9 VITAMIN D DEFICIENCY 12/16/2011 272.4 DYSLIPIDEMIA 12/16/2011 280.9 IRON DEFICIENCY ANEMIA UNSPECIFIED 12/16/2011 268.9 VITAMIN D DEFICIENCY 12/16/2011 272.4 DYSLIPIDEMIA 12/16/2011 280.9 IRON DEFICIENCY ANEMIA UNSPECIFIED 12/16/2011 [facility], LYNN R 268.9 VITAMIN D DEFICIENCY 12/16/2011 [facility], LYNN R 272.4 DYSLIPIDEMIA 12/16/2011 [facility], LYNN R 280.9 IRON DEFICIENCY ANEMIA UNSPECIFIED 12/16/2011 [facility], LYNN R 268.9 VITAMIN D DEFICIENCY 12/16/2011 [facility], LYNN R 272.4 DYSLIPIDEMIA 12/16/2011 [facility], LYNN R 280.9 IRON DEFICIENCY ANEMIA UNSPECIFIED 12/16/2011 [facility] DO, MARTY K 268.9 VITAMIN D DEFICIENCY 12/16/2011 [facility] DO, MARTY K 272.4 DYSLIPIDEMIA 12/16/2011 [facility] DO, MARTY K 280.9 IRON DEFICIENCY ANEMIA UNSPECIFIED 12/16/2011 [facility] DO, MARTY K 268.9 VITAMIN D DEFICIENCY 12/16/2011 [facility] DO, MARTY K 272.4 DYSLIPIDEMIA 12/16/2011 [facility] DO, MARTY K 280.9 IRON DEFICIENCY ANEMIA UNSPECIFIED 12/16/2011 [facility] DO, MARTY K 268.9 VITAMIN D DEFICIENCY 12/16/2011 [facility] DO, MARTY K 272.4 DYSLIPIDEMIA 12/16/2011 [facility] DO, MARTY K 280.9 IRON DEFICIENCY ANEMIA UNSPECIFIED 12/16/2011 [facility] DO, MARTY K 268.9 VITAMIN D DEFICIENCY 12/16/2011 [facility] DO, MARTY K 272.4 DYSLIPIDEMIA 12/16/2011 [facility] DO, MARTY K 280.9 IRON DEFICIENCY ANEMIA UNSPECIFIED 12/16/2011 JOMAR FAGAN MD 268.9 VITAMIN D DEFICIENCY 12/16/2011 JOMAR FAGAN MD 272.4 DYSLIPIDEMIA 12/16/2011 JOMAR FAGAN MD 280.9 IRON DEFICIENCY ANEMIA UNSPECIFIED 12/16/2011 [facility] DO, MARTY K 268.9 VITAMIN D DEFICIENCY 12/16/2011 [facility] DO, MARTY K 272.4 DYSLIPIDEMIA 12/16/2011 [facility] DO, MARTY K 280.9 IRON DEFICIENCY ANEMIA UNSPECIFIED 12/16/2011 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, NILE 268.9 VITAMIN D DEFICIENCY 12/16/2011 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, NILE 272.4 DYSLIPIDEMIA 12/16/2011 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, NILE 280.9 IRON DEFICIENCY ANEMIA UNSPECIFIED 12/16/2011 [facility], LYNN R 268.9 VITAMIN D DEFICIENCY 12/16/2011 [facility], LYNN R 272.4 DYSLIPIDEMIA 12/16/2011 [facility], LYNN R 280.9 IRON DEFICIENCY ANEMIA UNSPECIFIED 12/16/2011 [facility] DO, MARTY K 268.9 VITAMIN D DEFICIENCY 12/16/2011 [facility] DO, MARTY K 272.4 DYSLIPIDEMIA 12/16/2011 [facility] DO, MARTY K 280.9 IRON DEFICIENCY ANEMIA UNSPECIFIED 12/16/2011 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, NILE 268.9 VITAMIN D DEFICIENCY 12/16/2011 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, NILE 272.4 DYSLIPIDEMIA 12/16/2011 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, NILE 280.9 IRON DEFICIENCY ANEMIA UNSPECIFIED 12/16/2011 NAVAS DO, MARTY K 268.9 VITAMIN D DEFICIENCY 12/16/2011 NAVAS DO, MARTY K 272.4 DYSLIPIDEMIA 12/16/2011 NAVAS DO, MARTY K 280.9 IRON DEFICIENCY ANEMIA UNSPECIFIED 12/16/2011 [facility], LYNN R 268.9 VITAMIN D DEFICIENCY 12/16/2011 [facility], LYNN R 272.4 DYSLIPIDEMIA 12/16/2011 [facility], LYNN R 280.9 IRON DEFICIENCY ANEMIA UNSPECIFIED 03/14/2012 Ot 813.42 FX DISTAL RADIUS NEC-CL 03/14/2012 Ot 959.3 ELB/FOREARM/WRST INJ NOS 03/14/2012 Ot E000.8 OTHER EXTERNAL CAUSE STATUS 03/14/2012 Ot E849.0 ACCIDENT IN HOME 03/14/2012 Ot E888.9 FALL NOS 03/17/2012 Ot 813.42 FX DISTAL RADIUS NEC-CL 03/17/2012 Ot E000.8 OTHER EXTERNAL CAUSE STATUS 03/17/2012 Ot E849.0 ACCIDENT IN HOME 03/17/2012 Ot E888.9 FALL NOS 05/07/2012 Ot 733.82 NONUNION OF FRACTURE 05/07/2012 Ot 905.2 LATE EFFECT ARM FX 05/07/2012 Ot E929.3 LATE EFF ACCIDENTAL FALL 01/10/2013 REVEAL TIFFANIE GRAHAM Ot 300.00 ANXIETY STATE NOS 01/10/2013 REVEAL TIFFANIE GRAHAM Ot 305.1 TOBACCO USE DISORDER 01/10/2013 REVEAL TIFFANIE GRAHAM Ot 311 DEPRESSIVE DISORDER NEC 01/10/2013 REVEAL TIFFANIE GRAHAM Ot 496 CHR AIRWAY OBSTRUCT NEC 01/10/2013 REVEAL TIFFANIE GRAHAM Ot V54.01 ENCNTR FOR REMOVAL OF INTERNAL FIXATION 01/10/2013 REVEAL TIFFANIE GRAHAM Ot V74.8 SCREEN-BACTERIAL DIS NEC 05/06/2013 MARTY NAVAS DO K 401.1 HYPERTENSION, BENIGN ESSENTIAL 05/06/2013 OFE NAVAS DOA K 487.1 INFLUENZA WITH OTHER RESPIRATORY MANIFESTATIONS 05/06/2013 OFE NAVAS DOA K 401.1 HYPERTENSION, BENIGN ESSENTIAL 05/06/2013 OFE NAVAS DOA K 487.1 INFLUENZA WITH OTHER RESPIRATORY MANIFESTATIONS 05/06/2013 OFE NAVAS DOA K 401.1 HYPERTENSION, BENIGN ESSENTIAL 05/06/2013 MARTY NAVAS DO K 487.1 INFLUENZA WITH OTHER RESPIRATORY MANIFESTATIONS 05/06/2013 MARTY NAVAS DO K 401.1 HYPERTENSION, BENIGN ESSENTIAL 05/06/2013 OFE NAVAS DOA K 487.1 INFLUENZA WITH OTHER RESPIRATORY MANIFESTATIONS 05/06/2013 JOMAR FAGAN MD 401.1 HYPERTENSION, BENIGN ESSENTIAL 05/06/2013 JOMAR FAGAN MD 487.1 INFLUENZA WITH OTHER RESPIRATORY MANIFESTATIONS 05/06/2013 MARTY NAVAS DO K 401.1 HYPERTENSION, BENIGN ESSENTIAL 05/06/2013 OFE NAVAS DOA K 487.1 INFLUENZA WITH OTHER RESPIRATORY MANIFESTATIONS 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, 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 401.1 HYPERTENSION, BENIGN ESSENTIAL 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, NILE 487.1 INFLUENZA WITH OTHER RESPIRATORY MANIFESTATIONS 05/06/2013 [facility], LYNN R 401.1 HYPERTENSION, BENIGN ESSENTIAL 05/06/2013 [facility], LYNN R 487.1 INFLUENZA WITH OTHER RESPIRATORY MANIFESTATIONS 05/06/2013 MARTY NAVAS DO K 401.1 HYPERTENSION, BENIGN ESSENTIAL 05/06/2013 OFE NAVAS DOA K 487.1 INFLUENZA WITH OTHER RESPIRATORY MANIFESTATIONS 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, NILE 401.1 HYPERTENSION, BENIGN ESSENTIAL 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, NILE 487.1 INFLUENZA WITH OTHER RESPIRATORY MANIFESTATIONS 05/06/2013 NAVAS DO MARTY K 401.1 HYPERTENSION, BENIGN ESSENTIAL 05/06/2013 NAVAS , MARTY K 487.1 INFLUENZA WITH OTHER RESPIRATORY MANIFESTATIONS 05/06/2013 [facility], LYNN R 401.1 HYPERTENSION, BENIGN ESSENTIAL 05/06/2013 [facility], LYNN R 487.1 INFLUENZA WITH OTHER RESPIRATORY MANIFESTATIONS 05/08/2013 TERRELL SANTOS MD Ot 401.9 HYPERTENSION NOS 05/08/2013 TERRELL SANTOS MD Ot 782.0 SKIN SENSATION DISTURB 05/20/2013 NAVAS DO, MARTY K 276.51 DEHYDRATION 05/20/2013 NAVAS DO, MARTY K 535.00 ACUTE GASTRITIS (WITHOUT HEMORRHAGE) 05/20/2013 NAVAS DO, MARTY K 784.0 HEADACHE 05/20/2013 NAVAS DO, MARTY K 276.51 DEHYDRATION 05/20/2013 NAVAS , MARTY K 535.00 ACUTE GASTRITIS (WITHOUT HEMORRHAGE) 05/20/2013 YOSEF AIKEN MARTY K 784.0 HEADACHE 05/20/2013 JOMAR FAGAN MD 276.51 DEHYDRATION 05/20/2013 JOMAR FAGAN MD 535.00 ACUTE GASTRITIS (WITHOUT HEMORRHAGE) 05/20/2013 JOMAR FAGAN MD 784.0 HEADACHE 05/20/2013 NAVAS , MARTY K 276.51 DEHYDRATION 05/20/2013 NAVAS , MARTY K 535.00 ACUTE GASTRITIS (WITHOUT HEMORRHAGE) 05/20/2013 NAVAS , MARTY K 784.0 HEADACHE 05/20/2013 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, NILE 276.51 DEHYDRATION 05/20/2013 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, NILE 535.00 ACUTE GASTRITIS (WITHOUT HEMORRHAGE) 05/20/2013 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, NILE 784.0 HEADACHE 05/20/2013 [facility], LYNN R 276.51 DEHYDRATION 05/20/2013 [facility], LYNN R 535.00 ACUTE GASTRITIS (WITHOUT HEMORRHAGE) 05/20/2013 [facility], LYNN R 784.0 HEADACHE 05/20/2013 NAVAS DO, MARTY K 276.51 DEHYDRATION 05/20/2013 NAVAS , MARTY K 535.00 ACUTE GASTRITIS (WITHOUT HEMORRHAGE) 05/20/2013 NAVAS , MARTY K 784.0 HEADACHE 05/20/2013 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, NILE 276.51 DEHYDRATION 05/20/2013 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, NILE 535.00 ACUTE GASTRITIS (WITHOUT HEMORRHAGE) 05/20/2013 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, NILE 784.0 HEADACHE 05/20/2013 NAVAS DO, MARTY K 276.51 DEHYDRATION 05/20/2013 NAVAS DO, MARTY K 535.00 ACUTE GASTRITIS (WITHOUT HEMORRHAGE) 05/20/2013 NAVAS DO, MARTY K 784.0 HEADACHE 05/20/2013 [facility], LYNN R 276.51 DEHYDRATION 05/20/2013 [facility], LYNN R 535.00 ACUTE GASTRITIS (WITHOUT HEMORRHAGE) 05/20/2013 [facility], LYNN R 784.0 HEADACHE 01/14/2014 NAVAS DO, MARTY K 783.5 POLYDIPSIA 01/14/2014 NAVAS DO, MARTY K 787.01 NAUSEA WITH VOMITING 01/14/2014 NAVAS DO, MARTY K 790.29 OTHER ABNORMAL GLUCOSE 01/14/2014 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, NILE 783.5 POLYDIPSIA 01/14/2014 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, NILE 787.01 NAUSEA WITH VOMITING 01/14/2014 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, NILE 790.29 OTHER ABNORMAL GLUCOSE 01/14/2014 [facility], LYNN R 783.5 POLYDIPSIA 01/14/2014 [facility], LYNN R 787.01 NAUSEA WITH VOMITING 01/14/2014 [facility], LYNN R 790.29 OTHER ABNORMAL GLUCOSE 01/14/2014 NAVAS DO, MARTY K 783.5 POLYDIPSIA 01/14/2014 NAVAS DO, MARTY K 787.01 NAUSEA WITH VOMITING 01/14/2014 NAVAS DO, MARTY K 790.29 OTHER ABNORMAL GLUCOSE 01/14/2014 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, NILE 783.5 POLYDIPSIA 01/14/2014 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, NILE 787.01 NAUSEA WITH VOMITING 01/14/2014 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, NILE 790.29 OTHER ABNORMAL GLUCOSE 01/14/2014 NAVAS DO, MARTY K 783.5 POLYDIPSIA 01/14/2014 NAVAS DO, MARTY K 787.01 NAUSEA WITH VOMITING 01/14/2014 NAVAS DO, MARTY K 790.29 OTHER ABNORMAL GLUCOSE 01/14/2014 [facility], LYNN R 783.5 POLYDIPSIA 01/14/2014 [facility], LYNN R 787.01 NAUSEA WITH VOMITING 01/14/2014 [facility], LYNN R 790.29 OTHER ABNORMAL GLUCOSE 03/01/2014 Ot 813.42 03/01/2014 Ot E000.8 03/01/2014 Ot E849.0 03/01/2014 Ot E888.9 03/01/2014 Ot V72.83 03/01/2014 Ot V74.8 03/01/2014 Ot 813.81 03/01/2014 Ot 996.40 03/01/2014 Ot E000.8 03/01/2014 Ot E928.9 03/01/2014 Ot V72.84 03/01/2014 Ot V74.8 03/01/2014 TIFFANIE RUIZ MD Ot V72.84 03/01/2014 Ot 813.42 03/01/2014 Ot E000.8 03/01/2014 Ot E849.0 03/01/2014 Ot E888.9 03/01/2014 Ot V72.83 03/01/2014 Ot V74.8 03/01/2014 Ot 813.81 03/01/2014 Ot 996.40 03/01/2014 Ot E000.8 03/01/2014 Ot E928.9 03/01/2014 Ot V72.84 03/01/2014 Ot V74.8 03/01/2014 TIFFANIE RUIZ MD Ot V72.84 04/09/2014 EKTA CARPIO Ot 599.0 URIN TRACT INFECTION NOS 04/09/2014 EKTA CARPIO Ot 780.60 FEVER, UNSPECIFIED 04/13/2014 YURIDIA OVERTON GEAR INSPECTOR Ot 054.2 HERPETIC GINGIVOSTOMAT 04/13/2014 YURIDIA OVERTON GEAR INSPECTOR Ot 599.0 URIN TRACT INFECTION NOS 04/24/2014 MARTY NAVAS DO 112.1 CANDIDIASIS OF VULVA AND VAGINA 04/24/2014 NILE MACEDO APRN 112.1 CANDIDIASIS OF VULVA AND VAGINA 04/24/2014 MARTY NAVAS DO 112.1 CANDIDIASIS OF VULVA AND VAGINA 04/24/2014 [facility], LYNN R 112.1 CANDIDIASIS OF VULVA AND VAGINA 06/11/2015 Ot 813.42 06/11/2015 Ot E000.8 06/11/2015 Ot E849.0 06/11/2015 Ot E888.9 06/11/2015 Ot V72.83 06/11/2015 Ot V74.8 06/11/2015 Ot 813.81 06/11/2015 Ot 996.40 06/11/2015 Ot E000.8 06/11/2015 Ot E928.9 06/11/2015 Ot V72.84 06/11/2015 Ot V74.8 06/11/2015 JOSEPH GRAHAM, TIFFANIE L Ot V72.84 06/11/2015 ROSALINDA GRAHAM, MALINDA Ot V54.89 06/11/2015 Ot 813.42 06/11/2015 Ot E000.8 06/11/2015 Ot E849.0 06/11/2015 Ot E888.9 06/11/2015 Ot V72.83 06/11/2015 Ot V74.8 06/11/2015 Ot 813.81 06/11/2015 Ot 996.40 06/11/2015 Ot E000.8 06/11/2015 Ot E928.9 06/11/2015 Ot V72.84 06/11/2015 Ot V74.8 06/11/2015 JOSEPH GRAHAM, TIFFANIE Thomas Ot V72.84 06/11/2015 ROSALINDA GRAHAM, MALINDA Ot V54.89 06/13/2015 DC GRAHAM, AUGUSTINE Ot F17.210 06/13/2015 DC GRAHAM, AUGUSTINE Ot J44.9 06/13/2015 DC GRAHAM, AUGUSTINE Ot K52.9 06/13/2015 DC GRAHAM, AUGUSTINE Ot K63.9 06/15/2015 DC GRAHAM, AUGUSTINE Ot F17.210 06/15/2015 DC GRAHAM, AUGUSTINE Ot J44.9 06/15/2015 DC GRAHAM, AUGUSTINE Ot K52.9 06/15/2015 DC GRAHAM, AUGUSTINE Ot K63.9 06/16/2015 DC GRAHAM, AUGUSTINE Ot E78.5 HYPERLIPIDEMIA, UNSPECIFIED 06/16/2015 DC GRAHAM, AUGUSTINE Ot F17.210 NICOTINE DEPENDENCE, CIGARETTES, UNCOMPL 06/16/2015 DC GRAHAM, AUGUSTINE Ot F32.9 MAJOR DEPRESSIVE DISORDER, SINGLE EPISOD 06/16/2015 DC GRAHAM, AUGUSTINE Ot F41.9 ANXIETY DISORDER, UNSPECIFIED 06/16/2015 AUGUSTINE IRWIN MD Ot I10 ESSENTIAL (PRIMARY) HYPERTENSION 06/16/2015 AUGUSTINE IRWIN MD Ot J44.9 CHRONIC OBSTRUCTIVE PULMONARY DISEASE, U 06/16/2015 AUGUSTINE IRWIN MD Ot K52.9 06/16/2015 AUGUSTINE IRWIN MD Ot K56.49 OTHER IMPACTION OF INTESTINE 06/16/2015 AUGUSTINE IRWIN MD Ot K63.0 ABSCESS OF INTESTINE 06/16/2015 AUGUSTINE IRWIN MD Ot K63.9 06/16/2015 AUGUSTINE IRWIN MD Ot Q43.0 MECKEL'S DIVERTICULUM (DISPLACED) (HYPER 08/22/2015 IOANA VILLATORO Ot K57.90 DVRTCLOS OF INTEST, PART UNSP, W/O PERF 10/18/2015 Ot 813.42 FX DISTAL RADIUS NEC-CL 10/18/2015 Ot E000.8 OTHER EXTERNAL CAUSE STATUS 10/18/2015 Ot E849.0 ACCIDENT IN HOME 10/18/2015 Ot E888.9 FALL NOS 10/18/2015 Ot V72.83 EXAM PRE-OPERATIVE NEC 10/18/2015 Ot V74.8 SCREEN-BACTERIAL DIS NEC 10/18/2015 Ot 813.81 FX RADIUS NOS- CLOSED 10/18/2015 Ot 996.40 [facility] COMPL OF INTERNAL ORTHOPEDIC D 10/18/2015 Ot E000.8 OTHER EXTERNAL CAUSE STATUS 10/18/2015 Ot E928.9 ACCIDENT NOS 10/18/2015 Ot V72.84 EXAM PRE-OPERATIVE NOS 10/18/2015 Ot V74.8 SCREEN-BACTERIAL DIS NEC 10/18/2015 JOSEPH GRAHMA, TIFFANIE Thomas Ot V72.84 EXAM PRE-OPERATIVE NOS 10/18/2015 ROSALINDA GRAHAM, MALINDA Ot V54.89 OTHER ORTHOPEDIC AFTERCARE 10/18/2015 IOANA VILLATORO Ot K57.90 DVRTCLOS OF INTEST, PART UNSP, W/O PERF 10/19/2015 JOSE ANTONIO ORTIZ DO Ot R10.30 LOWER ABDOMINAL PAIN, UNSPECIFIED 10/25/2015 JOSE ANTONIO ORTIZ DO Ot R10.30 LOWER ABDOMINAL PAIN, UNSPECIFIED 10/29/2015 JOSE ANTONIO ORTIZ DO Ot R10.30 LOWER ABDOMINAL PAIN, UNSPECIFIED 10/29/2015 IOANA VILLATORO Ot K57.90 DVRTCLOS OF INTEST, PART UNSP, W/O PERF 11/06/2015 AMBER SNYDER MD Ot E86.1 HYPOVOLEMIA 11/06/2015 AMBER SNYDER MD Ot E87.6 HYPOKALEMIA 11/06/2015 AMBER SNYDER MD Ot F17.210 NICOTINE DEPENDENCE, CIGARETTES, UNCOMPL 11/06/2015 AMBER SNYDER MD Ot R10.84 GENERALIZED ABDOMINAL PAIN 11/06/2015 AMBER SNYDER MD Ot R11.2 NAUSEA WITH VOMITING, UNSPECIFIED 11/08/2015 AMBER SNYDER MD Ot E86.1 HYPOVOLEMIA 11/08/2015 AMBER SNYDER MD Ot E87.6 HYPOKALEMIA 11/08/2015 AMBER NSYDER MD Ot F17.210 NICOTINE DEPENDENCE, CIGARETTES, UNCOMPL 11/08/2015 AMBER SNYDER MD Ot R10.84 GENERALIZED ABDOMINAL PAIN 11/08/2015 AMBER SNYDER MD Ot R11.2 NAUSEA WITH VOMITING, UNSPECIFIED 12/05/2015 IAONA VILLATORO Ot K57.90 DVRTCLOS OF INTEST, PART UNSP, W/O PERF 12/05/2015 JOSE ANTONIO ORTIZ DO Ot R10.30 LOWER ABDOMINAL PAIN, UNSPECIFIED 12/05/2015 IOANA VILLATORO Ot K57.90 DVRTCLOS OF INTEST, PART UNSP, W/O PERF 12/05/2015 JOSE ANTONIO ORTIZ DO Ot R10.30 LOWER ABDOMINAL PAIN, UNSPECIFIED 12/31/2015 JOSE ANTONIO ORTIZ DO Ot Z01.818 ENCOUNTER FOR OTHER PREPROCEDURAL EXAMIN 12/31/2015 JOSE ANTONIO ORTIZ DO Ot Z01.818 ENCOUNTER FOR OTHER PREPROCEDURAL EXAMIN 01/01/2016 Ot 813.42 FX DISTAL RADIUS NEC-CL 01/01/2016 Ot E000.8 OTHER EXTERNAL CAUSE STATUS 01/01/2016 Ot E849.0 ACCIDENT IN HOME 01/01/2016 Ot E888.9 FALL NOS 01/01/2016 Ot V72.83 EXAM PRE-OPERATIVE NEC 01/01/2016 Ot V74.8 SCREEN-BACTERIAL DIS NEC 01/01/2016 Ot 813.81 FX RADIUS NOS- CLOSED 01/01/2016 Ot 996.40 [facility] COMPL OF INTERNAL ORTHOPEDIC D 01/01/2016 Ot E000.8 OTHER EXTERNAL CAUSE STATUS 01/01/2016 Ot E928.9 ACCIDENT NOS 01/01/2016 Ot V72.84 EXAM PRE-OPERATIVE NOS 01/01/2016 Ot V74.8 SCREEN-BACTERIAL DIS NEC 01/01/2016 TIFFANIE RUIZ MD Ot V72.84 EXAM PRE-OPERATIVE NOS 01/01/2016 ROSALINDA GRHAAM, MALINDA Ot V54.89 OTHER ORTHOPEDIC AFTERCARE 01/01/2016 IOANA VILLATORO ICING COATER Ot K57.90 DVRTCLOS OF INTEST, PART UNSP, W/O PERF 01/01/2016 JOSE ANTONIO ORTIZ DO Ot R10.30 LOWER ABDOMINAL PAIN, UNSPECIFIED 01/01/2016 JOSE ANTONIO ORTIZ DO Ot Z01.818 ENCOUNTER FOR OTHER PREPROCEDURAL EXAMIN 01/01/2016 JOSE ANTONIO ORTIZ DO Ot K57.30 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 AB 01/02/2016 JOSE ANTONIO ORTIZ DO Ot K57.30 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 AB 01/02/2016 Ot 813.42 FX DISTAL RADIUS NEC-CL 01/02/2016 Ot E000.8 OTHER EXTERNAL CAUSE STATUS 01/02/2016 Ot E849.0 ACCIDENT IN HOME 01/02/2016 Ot E888.9 FALL NOS 01/02/2016 Ot V72.83 EXAM PRE-OPERATIVE NEC 01/02/2016 Ot V74.8 SCREEN-BACTERIAL DIS NEC 01/02/2016 Ot 813.81 FX RADIUS NOS- CLOSED 01/02/2016 Ot 996.40 [facility] COMPL OF INTERNAL ORTHOPEDIC D 01/02/2016 Ot E000.8 OTHER EXTERNAL CAUSE STATUS 01/02/2016 Ot E928.9 ACCIDENT NOS 01/02/2016 Ot V72.84 EXAM PRE-OPERATIVE NOS 01/02/2016 Ot V74.8 SCREEN-BACTERIAL DIS NEC 01/02/2016 TIFFANIE RUIZ MD Ot V72.84 EXAM PRE-OPERATIVE NOS 01/02/2016 ROSALINDA GRAHAM, MALINDA Ot V54.89 OTHER ORTHOPEDIC AFTERCARE 01/02/2016 SHAUNA IOANA A ICING COATER Ot K57.90 DVRTCLOS OF INTEST, PART UNSP, W/O PERF 01/02/2016 JOSE ANTONIO ORTIZ DO Ot R10.30 LOWER ABDOMINAL PAIN, UNSPECIFIED 01/03/2016 JOSE ANTONIO ORTIZ DO Ot K43.9 VENTRAL HERNIA WITHOUT OBSTRUCTION OR GA 01/03/2016 JOSE ANTONIO ORTIZ DO Ot K57.30 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 AB 01/03/2016 JOSE ANTONIO ORTIZ DO Ot K43.9 VENTRAL HERNIA WITHOUT OBSTRUCTION OR GA 01/03/2016 JOSE ANTONIO ORTIZ DO Ot K57.30 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 AB 01/31/2016 JOSE ANTONIO ORTIZ DO Ot K43.2 INCISIONAL HERNIA WITHOUT OBSTRUCTION OR 01/31/2016 JOSE ANTONIO ORTIZ DO Ot Z01.812 ENCOUNTER FOR PREPROCEDURAL LABORATORY E 01/31/2016 JOSE ANTONIO ORTIZ DO Ot Z11.2 ENCOUNTER FOR SCREENING FOR OTHER BACTER 02/01/2016 JOSE ANTONIO ORTIZ DO Ot K43.2 INCISIONAL HERNIA WITHOUT OBSTRUCTION OR 02/01/2016 JOSE ANTONIO ORTIZ DO Ot Z01.812 ENCOUNTER FOR PREPROCEDURAL LABORATORY E 02/01/2016 JOSE ANTONIO ORTIZ DO Ot Z11.2 ENCOUNTER FOR SCREENING FOR OTHER BACTER 02/07/2016 JOSE ANTONIO ORTIZ DO Ot K43.2 INCISIONAL HERNIA WITHOUT OBSTRUCTION OR 02/08/2016 JOSE ANTONIO ORTIZ DO Ot K43.2 INCISIONAL HERNIA WITHOUT OBSTRUCTION OR 02/13/2016 JOSE ANTONIO ORTIZ DO Ot K43.2 INCISIONAL HERNIA WITHOUT OBSTRUCTION OR 11/13/2016 Ot 813.42 FX DISTAL RADIUS NEC-CL 11/13/2016 Ot E000.8 OTHER EXTERNAL CAUSE STATUS 11/13/2016 Ot E849.0 ACCIDENT IN HOME 11/13/2016 Ot E888.9 FALL NOS 11/13/2016 Ot V72.83 EXAM PRE-OPERATIVE NEC 11/13/2016 Ot V74.8 SCREEN-BACTERIAL DIS NEC 11/13/2016 Ot 813.81 FX RADIUS NOS- CLOSED 11/13/2016 Ot 996.40 [facility] COMPL OF INTERNAL ORTHOPEDIC D 11/13/2016 Ot E000.8 OTHER EXTERNAL CAUSE STATUS 11/13/2016 Ot E928.9 ACCIDENT NOS 11/13/2016 Ot V72.84 EXAM PRE-OPERATIVE NOS 11/13/2016 Ot V74.8 SCREEN-BACTERIAL DIS NEC 11/13/2016 TIFFANIE RUIZ MD Ot V72.84 EXAM PRE-OPERATIVE NOS 11/13/2016 MALINDA TELLEZ MD Ot V54.89 OTHER ORTHOPEDIC AFTERCARE 11/13/2016 IOANA VILLATORO Ot K57.90 DVRTCLOS OF INTEST, PART UNSP, W/O PERF 11/13/2016 JOSE ANTONIO ORTIZ DO Ot R10.30 LOWER ABDOMINAL PAIN, UNSPECIFIED 11/13/2016 JOSE ANTONIO ORTIZ DO Ot K43.9 VENTRAL HERNIA WITHOUT OBSTRUCTION OR GA 11/13/2016 JOSE ANTONIO ORTIZ DO Ot K57.30 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 AB 11/13/2016 Ot 813.42 FX DISTAL RADIUS NEC-CL 11/13/2016 Ot E000.8 OTHER EXTERNAL CAUSE STATUS 11/13/2016 Ot E849.0 ACCIDENT IN HOME 11/13/2016 Ot E888.9 FALL NOS 11/13/2016 Ot V72.83 EXAM PRE-OPERATIVE NEC 11/13/2016 Ot V74.8 SCREEN-BACTERIAL DIS NEC 11/13/2016 Ot 813.81 FX RADIUS NOS- CLOSED 11/13/2016 Ot 996.40 [facility] COMPL OF INTERNAL ORTHOPEDIC D 11/13/2016 Ot E000.8 OTHER EXTERNAL CAUSE STATUS 11/13/2016 Ot E928.9 ACCIDENT NOS 11/13/2016 Ot V72.84 EXAM PRE-OPERATIVE NOS 11/13/2016 Ot V74.8 SCREEN-BACTERIAL DIS NEC 11/13/2016 TIFFANIE RUIZ MD Ot V72.84 EXAM PRE-OPERATIVE NOS 11/13/2016 MALINDA TELLEZ MD Ot V54.89 OTHER ORTHOPEDIC AFTERCARE 11/13/2016 IOANA VILLATOROP Ot K57.90 DVRTCLOS OF INTEST, PART UNSP, W/O PERF 11/13/2016 JOSE ANTONIO ORTIZ DO Ot R10.30 LOWER ABDOMINAL PAIN, UNSPECIFIED 11/13/2016 JOSE ANTONIO ORTIZ DO Ot K43.9 VENTRAL HERNIA WITHOUT OBSTRUCTION OR GA 11/13/2016 JOSE ANTONIO ORTIZ DO Ot K57.30 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 AB 11/13/2016 YURIDIA OVERTON APRN Ot F32.9 MAJOR DEPRESSIVE DISORDER, SINGLE EPISOD 11/13/2016 YURIDIA OVERTON APRN Ot G25.81 RESTLESS LEGS SYNDROME 11/13/2016 YURIDIA OVETRON APRN Ot G43.909 MIGRAINE, UNSP, NOT INTRACTABLE, WITHOUT 11/13/2016 YURIDIA OVERTON APRN Ot I10 ESSENTIAL (PRIMARY) HYPERTENSION 11/13/2016 YURIDIA OVERTON APRN Ot J44.9 CHRONIC OBSTRUCTIVE PULMONARY DISEASE, U 11/13/2016 YURIDIA OVERTON APRN Ot K21.9 GASTRO-ESOPHAGEAL REFLUX DISEASE WITHOUT 11/13/2016 YURIDIA OVERTON APRN Ot M19.90 UNSPECIFIED OSTEOARTHRITIS, UNSPECIFIED 11/13/2016 YURIDIA OVERTON APRN Ot T42.6X2A POISN BY OTH ANTIEPLPTC AND SED-HYPNTC D 11/13/2016 YURIDIA OVERTON APRN Ot T46.6X2A POISN BY ANTIHYPERLIP AND ANTIARTERIO DR 11/13/2016 YURIDIA OVERTON APRN Ot T48.6X2A POISONING BY ANTIASTHMATICS, INTENTIONAL 11/13/2016 YURIDIA OVERTON APRN Ot Z90.49 ACQUIRED ABSENCE OF OTHER SPECIFIED PART 11/13/2016 YURIDIA OVERTON APRN Ot Z90.710 ACQUIRED ABSENCE OF BOTH CERVIX AND UTER 11/18/2016 YURIDIA OVERTON APRN Ot F32.9 MAJOR DEPRESSIVE DISORDER, SINGLE EPISOD 11/18/2016 YURIDIA OVERTON APRN Ot G25.81 RESTLESS LEGS SYNDROME 11/18/2016 YURIDIA OVERTON APRN Ot G43.909 MIGRAINE, UNSP, NOT INTRACTABLE, WITHOUT 11/18/2016 YURIDIA OVERTON APRN Ot I10 ESSENTIAL (PRIMARY) HYPERTENSION 11/18/2016 YURIDIA OVERTON APRN Ot J44.9 CHRONIC OBSTRUCTIVE PULMONARY DISEASE, U 11/18/2016 YURIDIA OVERTON APRN Ot K21.9 GASTRO-ESOPHAGEAL REFLUX DISEASE WITHOUT 11/18/2016 YURIDIA OVERTON APRN Ot M19.90 UNSPECIFIED OSTEOARTHRITIS, UNSPECIFIED 11/18/2016 YURIDIA OVERTON APRN Ot T42.6X2A POISN BY OTH ANTIEPLPTC AND SED-HYPNTC D 11/18/2016 YURIDIA OVERTON GEAR INSPECTOR Ot T46.6X2A POISN BY ANTIHYPERLIP AND ANTIARTERIO DR 11/18/2016 YURIDIA OVERTON APRN Ot T48.6X2A POISONING BY ANTIASTHMATICS, INTENTIONAL 11/18/2016 YURIDIA OVERTON APRN Ot Z90.49 ACQUIRED ABSENCE OF OTHER SPECIFIED PART 11/18/2016 YURIDIA OVERTON APRN Ot Z90.710 ACQUIRED ABSENCE OF BOTH CERVIX AND UTER 02/04/2017 VIOLET MICHELE MD Ot F17.210 NICOTINE DEPENDENCE, CIGARETTES, UNCOMPL 02/04/2017 VIOLET MICHELE MD Ot F32.9 MAJOR DEPRESSIVE DISORDER, SINGLE EPISOD 02/04/2017 VIOLET MICHELE MD Ot G43.909 MIGRAINE, UNSP, NOT INTRACTABLE, WITHOUT 02/04/2017 VIOLET MICHELE MD Ot I10 ESSENTIAL (PRIMARY) HYPERTENSION 02/04/2017 VIOLET MICHELE MD Ot J06.9 ACUTE UPPER RESPIRATORY INFECTION, UNSPE 02/04/2017 VIOLET MICHELE MD Ot J44.9 CHRONIC OBSTRUCTIVE PULMONARY DISEASE, U 02/04/2017 VIOLET MICHELE MD Ot K21.9 GASTRO-ESOPHAGEAL REFLUX DISEASE WITHOUT 02/04/2017 VIOLET MICHELE MD Ot R50.9 FEVER, UNSPECIFIED 02/04/2017 VIOLET MICHELE MD Ot Z80.0 FAMILY HISTORY OF MALIGNANT NEOPLASM OF 02/04/2017 VIOLET MICHELE MD Ot Z82.49 FAMILY HX OF ISCHEM HEART DIS AND OTH DI 02/04/2017 VIOLET MICHELE MD Ot Z90.710 ACQUIRED ABSENCE OF BOTH CERVIX AND UTER 02/04/2017 Ot 813.42 FX DISTAL RADIUS NEC-CL 02/04/2017 Ot E000.8 OTHER EXTERNAL CAUSE STATUS 02/04/2017 Ot E849.0 ACCIDENT IN HOME 02/04/2017 Ot E888.9 FALL NOS 02/04/2017 Ot V72.83 EXAM PRE-OPERATIVE NEC 02/04/2017 Ot V74.8 SCREEN-BACTERIAL DIS NEC 02/04/2017 Ot 813.81 FX RADIUS NOS- CLOSED 02/04/2017 Ot 996.40 UNSP [facility] COMPL OF INTERNAL ORTHOPEDIC D 02/04/2017 Ot E000.8 OTHER EXTERNAL CAUSE STATUS 02/04/2017 Ot E928.9 ACCIDENT NOS 02/04/2017 Ot V72.84 EXAM PRE-OPERATIVE NOS 02/04/2017 Ot V74.8 SCREEN-BACTERIAL DIS NEC 02/04/2017 JOSEPH GRAHAM, TIFFANIE Thomas Ot V72.84 EXAM PRE-OPERATIVE NOS 02/04/2017 ROSALINDA GRAHAM, MALINDA Ot V54.89 OTHER ORTHOPEDIC AFTERCARE 02/04/2017 IOANA VILLATORO ICING COATER Ot K57.90 DVRTCLOS OF INTEST, PART UNSP, W/O PERF 02/04/2017 JOSE ANTONIO ORTIZ DO Ot R10.30 LOWER ABDOMINAL PAIN, UNSPECIFIED 02/04/2017 JOSE ANTONIO ORTIZ DO Ot K43.9 VENTRAL HERNIA WITHOUT OBSTRUCTION OR GA 02/04/2017 JOSE ANTONIO ORTIZ DO Ot K57.30 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 AB 02/06/2017 VIOLET MICHELE MD Ot F17.210 NICOTINE DEPENDENCE, CIGARETTES, UNCOMPL 02/06/2017 VIOLET MICHELE MD Ot F32.9 MAJOR DEPRESSIVE DISORDER, SINGLE EPISOD 02/06/2017 VIOLET MICHELE MD Ot G43.909 MIGRAINE, UNSP, NOT INTRACTABLE, WITHOUT 02/06/2017 VIOLET MICHELE MD Ot I10 ESSENTIAL (PRIMARY) HYPERTENSION 02/06/2017 VIOLET MICHELE MD Ot J06.9 ACUTE UPPER RESPIRATORY INFECTION, UNSPE 02/06/2017 VIOLET MICHELE MD Ot J44.9 CHRONIC OBSTRUCTIVE PULMONARY DISEASE, U 02/06/2017 VIOLET MICHELE MD Ot K21.9 GASTRO-ESOPHAGEAL REFLUX DISEASE WITHOUT 02/06/2017 VIOLET MICHELE MD Ot R50.9 FEVER, UNSPECIFIED 02/06/2017 VIOLET MICHELE MD Ot Z80.0 FAMILY HISTORY OF MALIGNANT NEOPLASM OF 02/06/2017 VIOLET MICHELE MD Ot Z82.49 FAMILY HX OF ISCHEM HEART DIS AND OTH DI 02/06/2017 VIOLET MICHELE MD Ot Z90.710 ACQUIRED ABSENCE OF BOTH CERVIX AND UTER 02/10/2017 VIOLET MICHELE MD Ot F17.210 NICOTINE DEPENDENCE, CIGARETTES, UNCOMPL 02/10/2017 VIOLET MICHELE MD Ot F32.9 MAJOR DEPRESSIVE DISORDER, SINGLE EPISOD 02/10/2017 VIOLET MICHELE MD Ot G43.909 MIGRAINE, UNSP, NOT INTRACTABLE, WITHOUT 02/10/2017 VIOLET MICHELE MD Ot I10 ESSENTIAL (PRIMARY) HYPERTENSION 02/10/2017 VIOLET MICHELE MD Ot J06.9 ACUTE UPPER RESPIRATORY INFECTION, UNSPE 02/10/2017 VIOLET MICHELE MD, Ot J44.9 CHRONIC OBSTRUCTIVE PULMONARY DISEASE, U 02/10/2017 VIOLET MICHELE MD Ot K21.9 GASTRO-ESOPHAGEAL REFLUX DISEASE WITHOUT 02/10/2017 VIOLET MICHELE MD Ot R50.9 FEVER, UNSPECIFIED 02/10/2017 VIOLET MICHELE MD Ot Z80.0 FAMILY HISTORY OF MALIGNANT NEOPLASM OF 02/10/2017 VIOLET MICHELE MD Ot Z82.49 FAMILY HX OF ISCHEM HEART DIS AND OTH DI 02/10/2017 VIOLET MICHELE MD Ot Z90.710 ACQUIRED ABSENCE OF BOTH CERVIX AND UTER 05/11/2017 TUSHAR LOVELACE APRN Ot M46.96 UNSPECIFIED INFLAMMATORY SPONDYLOPATHY, 05/11/2017 TUSHAR LOVELACE GEAR INSPECTOR Ot M47.816 SPONDYLOSIS W/O MYELOPATHY OR RADICULOPA 05/11/2017 TUSHAR LOVELACE GEAR INSPECTOR Ot M48.061 SPINAL STENOSIS, LUMBAR REGION WITHOUT N 05/11/2017 TUSHAR LOVELACE APRN Ot R20.0 ANESTHESIA OF SKIN 07/16/2017 TUSHAR LOVELACE GEAR INSPECTOR Ot M46.96 UNSPECIFIED INFLAMMATORY SPONDYLOPATHY, 07/16/2017 TUSHAR LOVELACE GEAR INSPECTOR Ot M47.816 SPONDYLOSIS W/O MYELOPATHY OR RADICULOPA 07/16/2017 TUSHAR LOVELACE APRN Ot M48.061 SPINAL STENOSIS, LUMBAR REGION WITHOUT N 07/16/2017 TUSHAR LOVELACE GEAR INSPECTOR Ot R20.0 ANESTHESIA OF SKIN 07/16/2017 Ot 813.42 FX DISTAL RADIUS NEC-CL 07/16/2017 Ot E000.8 OTHER EXTERNAL CAUSE STATUS 07/16/2017 Ot E849.0 ACCIDENT IN HOME 07/16/2017 Ot E888.9 FALL NOS 07/16/2017 Ot V72.83 EXAM PRE-OPERATIVE NEC 07/16/2017 Ot V74.8 SCREEN-BACTERIAL DIS NEC 07/16/2017 Ot 813.81 FX RADIUS NOS- CLOSED 07/16/2017 Ot 996.40 UNSP [facility] COMPL OF INTERNAL ORTHOPEDIC D 07/16/2017 Ot E000.8 OTHER EXTERNAL CAUSE STATUS 07/16/2017 Ot E928.9 ACCIDENT NOS 07/16/2017 Ot V72.84 EXAM PRE-OPERATIVE NOS 07/16/2017 Ot V74.8 SCREEN-BACTERIAL DIS NEC 07/16/2017 TIFFANIE RUIZ MD Ot V72.84 EXAM PRE-OPERATIVE NOS 07/16/2017 ROSALINDA GRAHAM, MALINDA Ot V54.89 OTHER ORTHOPEDIC AFTERCARE 07/16/2017 IOANA VILLATORO ICING COATER Ot K57.90 DVRTCLOS OF INTEST, PART UNSP, W/O PERF 07/16/2017 JOSE ANTONIO ORTIZ DO Ot R10.30 LOWER ABDOMINAL PAIN, UNSPECIFIED 07/16/2017 JOSE ANTONIO ORTIZ DO Ot K43.9 VENTRAL HERNIA WITHOUT OBSTRUCTION OR GA 07/16/2017 JOSE ANTONIO ORTIZ DO Ot K57.30 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 AB 07/16/2017 TUSHAR LOVELACE APRN Ot M46.96 UNSPECIFIED INFLAMMATORY SPONDYLOPATHY, 07/16/2017 TUSHAR LOVELACE APRN Ot M47.816 SPONDYLOSIS W/O MYELOPATHY OR RADICULOPA 07/16/2017 TUSHAR LOVELACE APRN Ot M48.061 SPINAL STENOSIS, LUMBAR REGION WITHOUT N 07/16/2017 TUSHAR LOVELACE APRN Ot R20.0 ANESTHESIA OF SKIN 07/17/2017 TUSHAR LOVELACE APRN Ot K57.30 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 AB 08/11/2017 TUSHAR LOVELACE APRN Ot K57.30 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 AB 08/11/2017 TUSHAR LOVELACE APRN Ot K57.30 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 AB 08/11/2017 TUSHAR LOVELACE GEAR INSPECTOR Ot M46.96 UNSPECIFIED INFLAMMATORY SPONDYLOPATHY, 08/11/2017 TUSHAR LOVELACE GEAR INSPECTOR Ot M47.816 SPONDYLOSIS W/O MYELOPATHY OR RADICULOPA 08/11/2017 TUSHAR LOVELACE APRN Ot M48.061 SPINAL STENOSIS, LUMBAR REGION WITHOUT N 08/11/2017 TUSHAR LOVELACE GEAR INSPECTOR Ot R20.0 ANESTHESIA OF SKIN 08/12/2017 TUSHAR LOVELACE GEAR INSPECTOR Ot K57.30 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 AB 12/08/2017 TUSHAR LOVELACE APRN Ot M46.96 UNSPECIFIED INFLAMMATORY SPONDYLOPATHY, 12/08/2017 TUSHAR LOVELACE APRN Ot M47.816 SPONDYLOSIS W/O MYELOPATHY OR RADICULOPA 12/08/2017 TUSHAR LOVELACE APRN Ot M48.061 SPINAL STENOSIS, LUMBAR REGION WITHOUT N 12/08/2017 TUSHAR LOVELACE APRN Ot R20.0 ANESTHESIA OF SKIN 01/04/2018 JOSEPH GRAHAM, TIFFANIE Thomas Ot V72.84 EXAM PRE-OPERATIVE NOS 01/04/2018 ROSALINDA GRAHAM, MALINDA Ot V54.89 OTHER ORTHOPEDIC AFTERCARE 01/04/2018 IOANA VILLATORO Ot K57.90 DVRTCLOS OF INTEST, PART UNSP, W/O PERF 01/04/2018 JOSE ANTONIO ORTIZ DO Ot R10.30 LOWER ABDOMINAL PAIN, UNSPECIFIED 01/04/2018 JOSE ANTONIO ORTIZ DO Ot K43.9 VENTRAL HERNIA WITHOUT OBSTRUCTION OR GA 01/04/2018 JOSE ANTONIO ORTIZ DO Ot K57.30 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 AB 01/04/2018 TUSHAR LOVELACE GEAR INSPECTOR Ot M46.96 UNSPECIFIED INFLAMMATORY SPONDYLOPATHY, 01/04/2018 TUSHAR LOVELACE GEAR INSPECTOR Ot M47.816 SPONDYLOSIS W/O MYELOPATHY OR RADICULOPA 01/04/2018 TUSHAR LOVELACE GEAR INSPECTOR Ot M48.061 SPINAL STENOSIS, LUMBAR REGION WITHOUT N 01/04/2018 TUSHAR LOVELACE APRN Ot R20.0 ANESTHESIA OF SKIN 01/04/2018 TUSHAR LOVELACE GEAR INSPECTOR Ot K57.30 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 AB 07/27/2018 IOANA VILLATORO ICING COATER Ot K57.90 DVRTCLOS OF INTEST, PART UNSP, W/O PERF 07/27/2018 ORTIZ DO, JOSE ANTONIO D Ot R10.30 LOWER ABDOMINAL PAIN, UNSPECIFIED 07/27/2018 IOANA VILLATORO ICING COATER Ot K57.90 DVRTCLOS OF INTEST, PART UNSP, W/O PERF 07/27/2018 ORTIZ DO, JOSE ANTONIO D Ot R10.30 LOWER ABDOMINAL PAIN, UNSPECIFIED 07/28/2018 VASU ANDERSEN MD Ot K14.9 DISEASE OF TONGUE, UNSPECIFIED 07/28/2018 VASU ANDERSEN MD Ot Z01.811 ENCOUNTER FOR PREPROCEDURAL RESPIRATORY 07/28/2018 VASU ANDERSEN MD Ot Z01.812 ENCOUNTER FOR PREPROCEDURAL LABORATORY E 07/28/2018 VASU ANDERSEN MD Ot Z11.2 ENCOUNTER FOR SCREENING FOR OTHER BACTER 07/28/2018 VASU ANDERSEN MD Ot K14.9 DISEASE OF TONGUE, UNSPECIFIED 07/28/2018 VASU ANDERSEN MD Ot Z01.811 ENCOUNTER FOR PREPROCEDURAL RESPIRATORY 07/28/2018 VASU ANDERSEN MD Ot Z01.812 ENCOUNTER FOR PREPROCEDURAL LABORATORY E 07/28/2018 VASU ANDERSEN MD Ot Z11.2 ENCOUNTER FOR SCREENING FOR OTHER BACTER 07/29/2018 VASU ANDERSEN MD Ot B37.0 CANDIDAL STOMATITIS 07/29/2018 VASU ANDERSEN MD Ot F17.210 NICOTINE DEPENDENCE, CIGARETTES, UNCOMPL 07/29/2018 VASU ANDERSEN MD Ot F32.9 MAJOR DEPRESSIVE DISORDER, SINGLE EPISOD 07/29/2018 VASU ANDERSEN MD Ot I10 ESSENTIAL (PRIMARY) HYPERTENSION 07/29/2018 VASU ANDERSEN MD Ot J44.9 CHRONIC OBSTRUCTIVE PULMONARY DISEASE, U 07/29/2018 VASU ANDERSEN MD Ot K14.0 GLOSSITIS 07/29/2018 VASU ANDERSEN MD Ot K14.9 DISEASE OF TONGUE, UNSPECIFIED 07/29/2018 AVSU ANDERSEN MD Ot K21.9 GASTRO-ESOPHAGEAL REFLUX DISEASE WITHOUT 07/29/2018 VASU ANDERSEN MD Ot Z79.899 OTHER SOUND RECORDIST (CURRENT) DRUG THERAPY 08/06/2018 VASU ANDERSEN MD P Ot B37.0 CANDIDAL STOMATITIS 08/06/2018 VASU ANDERSEN MD Ot F17.210 NICOTINE DEPENDENCE, CIGARETTES, UNCOMPL 08/06/2018 VASU ANDERSEN MD Ot F32.9 MAJOR DEPRESSIVE DISORDER, SINGLE EPISOD 08/06/2018 VASU ANDERSEN MD Ot I10 ESSENTIAL (PRIMARY) HYPERTENSION 08/06/2018 VASU ANDERSEN MD Ot J44.9 CHRONIC OBSTRUCTIVE PULMONARY DISEASE, U 08/06/2018 VASU ANDERSEN MD Ot K14.0 GLOSSITIS 08/06/2018 VASU ANDERSEN MD Ot K21.9 GASTRO-ESOPHAGEAL REFLUX DISEASE WITHOUT 08/06/2018 VASU ANDERSEN MD Ot Z79.899 OTHER CORRECTION (CURRENT) DRUG THERAPY 08/08/2018 VASU ANDERSEN MD Ot B37.0 CANDIDAL STOMATITIS 08/08/2018 VASU ANDERSEN MD Ot F17.210 NICOTINE DEPENDENCE, CIGARETTES, UNCOMPL 08/08/2018 VASU ANDERSEN MD Ot F32.9 MAJOR DEPRESSIVE DISORDER, SINGLE EPISOD 08/08/2018 VASU ANDERSEN MD Ot I10 ESSENTIAL (PRIMARY) HYPERTENSION 08/08/2018 VASU ANDERSEN MD Ot J44.9 CHRONIC OBSTRUCTIVE PULMONARY DISEASE, U 08/08/2018 VASU ANDERSEN MD Ot K14.0 GLOSSITIS 08/08/2018 VASU ANDERSEN MD Ot K21.9 GASTRO-ESOPHAGEAL REFLUX DISEASE WITHOUT 08/08/2018 VASU ANDERSEN MD Ot Z79.899 OTHER SOUND RECORDIST (CURRENT) DRUG THERAPY Procedures Code Description [place] [address] INDIV PSYTX 45/50 MIN 02/12/2012 57591 INDIV PSYTX 45/50 MIN 04/01/2012 41169 PSYTX PT&/FAMILY 45 MINUTES 07/09/2012 59042 ROUTINE VENIPUNCTURE 07/28/2012 38632 LIPID PANEL 07/28/2012 71595 PSYTX PT&/FAMILY 45 MINUTES 09/08/2012 07246 PSYTX PT&/FAMILY 45 MINUTES 11/26/2012 89256 PSYTX PT&/FAMILY 45 MINUTES 01/28/2013 13227 PSYTX PT&/FAMILY 45 MINUTES 03/11/2013 81213 OXIMETRY 05/06/2013 39490 INFLUENZA A & B (IN-HOUSE) 05/06/2013 2000F BLOOD PRESSURE CHECK 05/12/2013 60339 ROUTINE VENIPUNCTURE 05/20/2013 33989 CMP 05/20/2013 71196 BNP 05/20/2013 34702 CBC 05/20/2013 08310 UA W/ CULTURE IF INDICATED 01/14/2014 77786 GLUCOSE FINGER STICK 01/14/2014 63166 PSYTX PT&/FAMILY 45 MINUTES 04/04/2014 86044 UA W/ CULTURE IF INDICATED 04/24/2014 25837 A1C (IN-HOUSE) 04/24/2014 81102 PSYTX PT&/FAMILY 45 MINUTES 07/19/2014 [id number] EXCISION OF ILEUM, PERCUTANEOUS ENDOSCOP 06/14/2015 Results Test Result Range Complete blood count (CBC) with automated white blood cell (WBC) differential - 01/31/16 15:45 Blood leukocytes automated count (number/volume) 9.0 10*3/uL 4.3-11.0 Blood erythrocytes automated count (number/volume) 5.02 10*6/uL 4.35-5.85 Venous blood hemoglobin measurement (mass/volume) 13.8 g/dL 11.5-16.0 Blood hematocrit (volume fraction) 41 % 35-52 Automated erythrocyte mean corpuscular volume 82 [foz_us] 80-99 Automated erythrocyte mean corpuscular hemoglobin (mass per erythrocyte) 28 pg 25-34 Automated erythrocyte mean corpuscular hemoglobin concentration measurement (mass/volume) 33 g/dL 32-36 Automated erythrocyte distribution width ratio 16.0 % 10.0- 14.5 Automated blood platelet count (count/volume) 322 10*3/uL 130-400 Automated blood platelet mean volume measurement 9.8 [foz_us] 7.4-10.4 Automated blood neutrophils/100 leukocytes 53 % 42-75 Automated blood lymphocytes/100 leukocytes 32 % 12-44 Blood monocytes/100 leukocytes 8 % 0-12 Automated blood eosinophils/100 leukocytes 6 % 0-10 Automated blood basophils/100 leukocytes 1 % 0-10 Blood neutrophils automated count (number/volume) 4.8 10*3 1.8-7.8 Blood lymphocytes automated count (number/volume) 2.9 10*3 1.0-4.0 Blood monocytes automated count (number/volume) 0.7 10*3 0.0- 1.0 Automated eosinophil count 0.6 10*3/uL 0.0-0.3 Automated blood basophil count (count/volume) 0.1 10*3/uL 0.0-0.1 Methicillin resistant Staphylococcus aureus (MRSA) screening culture - 01/31/16 15:45 Methicillin resistant Staphylococcus aureus (MRSA) screening culture NEG NRG Complete blood count (CBC) with automated white blood cell (WBC) differential - 11/13/16 14:10 Blood leukocytes automated count (number/volume) 13.6 10*3/uL 4.3-11.0 Blood erythrocytes automated count (number/volume) 5.64 10*6/uL 4.35-5.85 Venous blood hemoglobin measurement (mass/volume) 15.5 g/dL 11.5-16.0 Blood hematocrit (volume fraction) 47 % 35-52 Automated erythrocyte mean corpuscular volume 83 [foz_us] 80-99 Automated erythrocyte mean corpuscular hemoglobin (mass per erythrocyte) 28 pg 25-34 Automated erythrocyte mean corpuscular hemoglobin concentration measurement (mass/volume) 33 g/dL 32-36 Automated erythrocyte distribution width ratio 15.8 % 10.0- 14.5 Automated blood platelet count (count/volume) 366 10*3/uL 130-400 Automated blood platelet mean volume measurement 9.6 [foz_us] 7.4-10.4 Automated blood neutrophils/100 leukocytes 64 % 42-75 Automated blood lymphocytes/100 leukocytes 26 % 12-44 Blood monocytes/100 leukocytes 7 % 0-12 Automated blood eosinophils/100 leukocytes 3 % 0-10 Automated blood basophils/100 leukocytes 1 % 0-10 Blood neutrophils automated count (number/volume) 8.7 10*3 1.8-7.8 Blood lymphocytes automated count (number/volume) 3.6 10*3 1.0-4.0 Blood monocytes automated count (number/volume) 0.9 10*3 0.0- 1.0 Automated eosinophil count 0.4 10*3/uL 0.0-0.3 Automated blood basophil count (count/volume) 0.1 10*3/uL 0.0-0.1 Comprehensive metabolic panel - 11/13/16 14:10 Serum or plasma sodium measurement (moles/volume) 142 mmol/L 135-145 Serum or plasma potassium measurement (moles/volume) 3.8 mmol/L 3.6-5.0 Serum or plasma chloride measurement (moles/volume) 106 mmol/L 98-107 Carbon dioxide 21 mmol/L 21-32 Serum or plasma anion gap determination (moles/volume) 15 mmol/L 5-14 Serum or plasma urea nitrogen measurement (mass/volume) 9 mg/dL 7-18 Serum or plasma creatinine measurement (mass/volume) 0.67 mg/dL 0.60-1.30 Serum or plasma urea nitrogen/creatinine mass ratio 13 NRG Serum or plasma creatinine measurement with calculation of estimated glomerular filtration rate > NRG Serum or plasma glucose measurement (mass/volume) 107 mg/dL 70-105 Serum or plasma calcium measurement (mass/volume) 9.9 mg/dL 8.5-10.1 Serum or plasma total bilirubin measurement (mass/volume) 0.3 mg/dL 0.1-1.0 Serum or plasma alkaline phosphatase measurement (enzymatic activity/volume) 78 U/L 40-136 Serum or plasma aspartate aminotransferase measurement (enzymatic activity/volume) 15 U/L 5-34 Serum or plasma alanine aminotransferase measurement (enzymatic activity/volume) 19 U/L 0-55 Serum or plasma protein measurement (mass/volume) 8.0 g/dL 6.4-8.2 Serum or plasma albumin measurement (mass/volume) 4.5 g/dL 3.2-4.5 THYROID STIMULATING HORMONE - 11/13/16 14:10 THYROID STIMULATING HORMONE 1.50 u[iU]/mL 0.35-4.94 Serum or plasma salicylates measurement (mass/volume) - 11/13/16 14:10 Serum or plasma salicylates measurement (mass/volume) < mg/dL 5.0-20.0 Serum or plasma acetaminophen measurement (mass/volume) - 11/13/16 14:10 Serum or plasma acetaminophen measurement (mass/volume) < ug/mL 10-30 Serum or plasma ethanol measurement (mass/volume) - 11/13/16 14:10 Serum or plasma ethanol measurement (mass/volume) 12 mg/dL <10 Complete urinalysis with reflex to culture - 11/13/16 16:00 Urine color determination YELLOW NRG Urine clarity determination SLIGHTLY CLOUDY NRG Urine pH measurement by test strip 7 5-9 Specific gravity of urine by test strip 1.010 1.016-1.022 Urine protein assay by test strip, semi-quantitative 1+ NEGATIVE Urine glucose detection by automated test strip NEGATIVE NEGATIVE Erythrocytes detection in urine sediment by light microscopy 1+ NEGATIVE Urine ketones detection by automated test strip NEGATIVE NEGATIVE Urine nitrite detection by test strip NEGATIVE NEGATIVE Urine total bilirubin detection by test strip NEGATIVE NEGATIVE Urine urobilinogen measurement by automated test strip (mass/volume) NORMAL NORMAL Urine leukocyte esterase detection by dipstick NEGATIVE NEGATIVE Automated urine sediment erythrocyte count by microscopy (number/high power field) [HPF] NRG Automated urine sediment leukocyte count by microscopy (number/high power field) NONE NRG Bacteria detection in urine sediment by light microscopy TRACE NRG Squamous epithelial cells detection in urine sediment by light microscopy 0-2 NRG Crystals detection in urine sediment by light microscopy NONE NRG Casts detection in urine sediment by light microscopy NONE NRG Mucus detection in urine sediment by light microscopy NEGATIVE NRG Complete urinalysis with reflex to culture NO NRG Urine drug screening test - 11/13/16 16:00 Urine phencyclidine detection by screening method NEGATIVE NEGATIVE Urine benzodiazepines detection by screening method NEGATIVE NEGATIVE Urine cocaine detection NEGATIVE NEGATIVE Urine amphetamines detection by screening method NEGATIVE NEGATIVE Urine methamphetamine detection by screening method NEGATIVE NEGATIVE Urine cannabinoids detection by screening method NEGATIVE NEGATIVE Urine opiates detection by screening method NEGATIVE NEGATIVE Urine barbiturates detection NEGATIVE NEGATIVE Screening urine tricyclic antidepressants detection NEGATIVE NEGATIVE Urine methadone detection by screening method NEGATIVE NEGATIVE Urine oxycodone detection NEGATIVE NEGATIVE Urine propoxyphene detection NEGATIVE NEGATIVE Complete blood count (CBC) with automated white blood cell (WBC) differential - 02/04/17 10:00 Blood leukocytes automated count (number/volume) 9.7 10*3/uL 4.3-11.0 Blood erythrocytes automated count (number/volume) 5.13 10*6/uL 4.35-5.85 Venous blood hemoglobin measurement (mass/volume) 13.9 g/dL 11.5-16.0 Blood hematocrit (volume fraction) 43 % 35-52 Automated erythrocyte mean corpuscular volume 83 [foz_us] 80-99 Automated erythrocyte mean corpuscular hemoglobin (mass per erythrocyte) 27 pg 25-34 Automated erythrocyte mean corpuscular hemoglobin concentration measurement (mass/volume) 33 g/dL 32-36 Automated erythrocyte distribution width ratio 14.9 % 10.0- 14.5 Automated blood platelet count (count/volume) 377 10*3/uL 130-400 Automated blood platelet mean volume measurement 9.5 [foz_us] 7.4-10.4 Automated blood neutrophils/100 leukocytes 61 % 42-75 Automated blood lymphocytes/100 leukocytes 26 % 12-44 Blood monocytes/100 leukocytes 8 % 0-12 Automated blood eosinophils/100 leukocytes 5 % 0-10 Automated blood basophils/100 leukocytes 1 % 0-10 Blood neutrophils automated count (number/volume) 5.9 10*3 1.8-7.8 Blood lymphocytes automated count (number/volume) 2.5 10*3 1.0-4.0 Blood monocytes automated count (number/volume) 0.7 10*3 0.0- 1.0 Automated eosinophil count 0.5 10*3/uL 0.0-0.3 Automated blood basophil count (count/volume) 0.1 10*3/uL 0.0-0.1 Blood lactic acid measurement (moles/volume) - 02/04/17 10:00 Blood lactic acid measurement (moles/volume) 1.04 mmol/L 0.50- 2.00 PT panel in platelet poor plasma by coagulation assay - 02/04/17 10:00 Prothrombin time (PT) in platelet poor plasma by coagulation assay 13.2 s 12.2-14.7 INR in platelet poor plasma or blood by coagulation assay 1.0 0.8-1.4 Activated partial thromboplastin time (aPTT) in platelet poor plasma bycoagulation assay - 02/04/17 10:00 Activated partial thromboplastin time (aPTT) in platelet poor plasma bycoagulation assay 33 s 24-35 Influenza virus A and B antigen detection - 02/04/17 10:00 FLU RESULT NEGATIVE FOR INFLUENZA A AND B ANTIGENS BY [facility] Comprehensive metabolic panel - 02/04/17 10:00 Serum or plasma sodium measurement (moles/volume) 140 mmol/L 135-145 Serum or plasma potassium measurement (moles/volume) 3.6 mmol/L 3.6-5.0 Serum or plasma chloride measurement (moles/volume) 106 mmol/L 98-107 Carbon dioxide 24 mmol/L 21-32 Serum or plasma anion gap determination (moles/volume) 10 mmol/L 5-14 Serum or plasma urea nitrogen measurement (mass/volume) 5 mg/dL 7-18 Serum or plasma creatinine measurement (mass/volume) 0.60 mg/dL 0.60-1.30 Serum or plasma urea nitrogen/creatinine mass ratio 8 NRG Serum or plasma creatinine measurement with calculation of estimated glomerular filtration rate > NRG Serum or plasma glucose measurement (mass/volume) 85 mg/dL 70-105 Serum or plasma calcium measurement (mass/volume) 9.1 mg/dL 8.5-10.1 Serum or plasma total bilirubin measurement (mass/volume) 0.2 mg/dL 0.1-1.0 Serum or plasma alkaline phosphatase measurement (enzymatic activity/volume) 82 U/L 40-136 Serum or plasma aspartate aminotransferase measurement (enzymatic activity/volume) 9 U/L 5-34 Serum or plasma alanine aminotransferase measurement (enzymatic activity/volume) 13 U/L 0-55 Serum or plasma protein measurement (mass/volume) 7.3 g/dL 6.4-8.2 Serum or plasma albumin measurement (mass/volume) 3.9 g/dL 3.2-4.5 Bacterial blood culture - 02/04/17 10:00 Bacterial blood culture NG NRG Complete urinalysis with reflex to culture - 02/04/17 10:26 Urine color determination DON NRG Urine clarity determination CLEAR NRG Urine pH measurement by test strip 7 5-9 Specific gravity of urine by test strip 1.005 1.016-1.022 Urine protein assay by test strip, semi-quantitative 2+ NEGATIVE Urine glucose detection by automated test strip NEGATIVE NEGATIVE Erythrocytes detection in urine sediment by light microscopy 1+ NEGATIVE Urine ketones detection by automated test strip NEGATIVE NEGATIVE Urine nitrite detection by test strip NEGATIVE NEGATIVE Urine total bilirubin detection by test strip NEGATIVE NEGATIVE Urine urobilinogen measurement by automated test strip (mass/volume) 1 mg/dL NORMAL Urine leukocyte esterase detection by dipstick 1+ NEGATIVE Automated urine sediment erythrocyte count by microscopy (number/high power field) NONE NRG Automated urine sediment leukocyte count by microscopy (number/high power field) [HPF] NRG Bacteria detection in urine sediment by light microscopy NEGATIVE NRG Squamous epithelial cells detection in urine sediment by light microscopy 5-10 NRG Crystals detection in urine sediment by light microscopy NONE NRG Casts detection in urine sediment by light microscopy NONE NRG Mucus detection in urine sediment by light microscopy NEGATIVE NRG Complete urinalysis with reflex to culture NO NRG Bacterial blood culture - 02/04/17 10:44 Bacterial blood culture NG NRG [id number] - 07/16/17 10:15 Serum or plasma urea nitrogen measurement (mass/volume) 12 mg/dL 7-18 Serum or plasma creatinine measurement (mass/volume) 0.67 mg/dL 0.60-1.30 Serum or plasma urea nitrogen/creatinine mass ratio 18 NRG Serum or plasma creatinine measurement with calculation of estimated glomerular filtration rate > NRG ESR/SED RATE - 12/03/17 16:44 SED RATE BY MODIFIED WESTERGREN 6 mm/h < OR=30 RA (RHEUMATOID) FACTOR - 12/03/17 16:44 RHEUMATOID FACTOR <14 IU/mL <14 THYROID ANALYZER - 12/03/17 16:44 TSH 1.17 mIU/L NRG CBC - 12/31/17 10:25 WHITE BLOOD CELL COUNT 8.1 Thousand/uL 3.8-10.8 RED BLOOD CELL COUNT 5.52 Million/uL 3.80-5.10 HEMOGLOBIN 14.4 g/dL 11.7-15.5 HEMATOCRIT 44.5 % 35.0-45.0 MCV 80.6 fL 80.0-100.0 MCH 26.1 pg 27.0-33.0 MCHC 32.4 g/dL 32.0-36.0 RDW 15.9 % 11.0-15.0 PLATELET COUNT 459 Thousand/uL 140-400 MPV 9.4 fL 7.5-12.5 ABSOLUTE NEUTROPHILS 4358 cells/uL [id number] ABSOLUTE LYMPHOCYTES 2730 cells/uL 850-3900 ABSOLUTE MONOCYTES 389 cells/uL 200-950 ABSOLUTE EOSINOPHILS 551 cells/uL 15-500 ABSOLUTE BASOPHILS 73 cells/uL 0-200 NEUTROPHILS 53.8 % NRG LYMPHOCYTES 33.7 % NRG MONOCYTES 4.8 % NRG EOSINOPHILS 6.8 % NRG BASOPHILS 0.9 % NRG Complete blood count (CBC) with automated white blood cell (WBC) differential - 07/27/18 14:30 Blood leukocytes automated count (number/volume) 7.4 10*3/uL 4.3-11.0 Blood erythrocytes automated count (number/volume) 4.86 10*6/uL 4.35-5.85 Venous blood hemoglobin measurement (mass/volume) 12.9 g/dL 11.5-16.0 Blood hematocrit (volume fraction) 40 % 35-52 Automated erythrocyte mean corpuscular volume 81 [foz_us] 80-99 Automated erythrocyte mean corpuscular hemoglobin (mass per erythrocyte) 27 pg 25-34 Automated erythrocyte mean corpuscular hemoglobin concentration measurement (mass/volume) 33 g/dL 32-36 Automated erythrocyte distribution width ratio 17.6 % 10.0- 14.5 Automated blood platelet count (count/volume) 362 10*3/uL 130-400 Automated blood platelet mean volume measurement 9.9 [foz_us] 7.4-10.4 Automated blood neutrophils/100 leukocytes 58 % 42-75 Automated blood lymphocytes/100 leukocytes 29 % 12-44 Blood monocytes/100 leukocytes 7 % 0-12 Automated blood eosinophils/100 leukocytes 5 % 0-10 Automated blood basophils/100 leukocytes 1 % 0-10 Blood neutrophils automated count (number/volume) 4.3 10*3 1.8-7.8 Blood lymphocytes automated count (number/volume) 2.2 10*3 1.0-4.0 Blood monocytes automated count (number/volume) 0.5 10*3 0.0- 1.0 Automated eosinophil count 0.4 10*3/uL 0.0-0.3 Automated blood basophil count (count/volume) 0.0 10*3/uL 0.0-0.1 Whole blood basic metabolic panel - 07/27/18 14:30 Serum or plasma sodium measurement (moles/volume) 142 mmol/L 135-145 Serum or plasma potassium measurement (moles/volume) 3.8 mmol/L 3.6-5.0 Serum or plasma chloride measurement (moles/volume) 108 mmol/L 98-107 Carbon dioxide 26 mmol/L 21-32 Serum or plasma anion gap determination (moles/volume) 8 mmol/L 5-14 Serum or plasma urea nitrogen measurement (mass/volume) 11 mg/dL 7-18 Serum or plasma creatinine measurement (mass/volume) 0.66 mg/dL 0.60-1.30 Serum or plasma urea nitrogen/creatinine mass ratio 17 NRG Serum or plasma creatinine measurement with calculation of estimated glomerular filtration rate > NRG Serum or plasma glucose measurement (mass/volume) 142 mg/dL 70-105 Serum or plasma calcium measurement (mass/volume) 9.9 mg/dL 8.5-10.1 Methicillin resistant Staphylococcus aureus (MRSA) screening culture - 07/27/18 14:30 Methicillin resistant Staphylococcus aureus (MRSA) screening culture NEG NRG PDM - ATS (PROFILE 8 WITH CONFIRMATION) - 08/02/18 13:35 Creatinine 66.1 mg/dL > or=20.0 pH 7.44 4.5 - 9.0 Oxidant NEGATIVE mcg/mL <200 Amphetamines NEGATIVE ng/mL <500 medMATCH Amphetamines CONSISTENT NRG Benzodiazepines NEGATIVE ng/mL <100 medMATCH Benzodiazepines CONSISTENT NRG Marijuana Metabolite NEGATIVE ng/mL <20 medMATCH Marijuana Metab CONSISTENT NRG Cocaine Metabolite NEGATIVE ng/mL <150 medMATCH Cocaine Metab CONSISTENT NRG Opiates POSITIVE ng/mL <100 Oxycodone NEGATIVE ng/mL <100 medMATCH Oxycodone CONSISTENT NRG COMMENT NRG Buprenorphine NEGATIVE ng/mL <5 MDMA NEGATIVE ng/mL <500 medMATCH MDMA CONSISTENT NRG Alcohol Metabolites NEGATIVE ng/mL <500 medMATCH Alcohol Metab CONSISTENT NRG 6 Acetylmorphine NEGATIVE ng/mL <10 medMATCH 6 Acetylmorphine CONSISTENT NRG Codeine NEGATIVE ng/mL <50 medMATCH Codeine CONSISTENT NRG Hydrocodone 50 ng/mL <50 medMATCH Hydrocodone INCONSISTENT NRG Hydromorphone NEGATIVE ng/mL <50 medMATCH Hydromorphone CONSISTENT NRG Morphine NEGATIVE ng/mL <50 medMATCH Morphine CONSISTENT NRG Norhydrocodone 189 ng/mL <50 medMATCH Norhydrocodone INCONSISTENT NRG medMATCH Buprenorphine CONSISTENT NRG PDM - ATS (PROFILE 8 WITH CONFIRMATION) - 11/11/18 17:45 Creatinine 132.9 mg/dL > or=20.0 pH 6.70 4.5 - 9.0 Oxidant NEGATIVE mcg/mL <200 Amphetamines NEGATIVE ng/mL <500 medMATCH Amphetamines CONSISTENT NRG Benzodiazepines POSITIVE ng/mL <100 Marijuana Metabolite NEGATIVE ng/mL <20 medMATCH Marijuana Metab CONSISTENT NRG Cocaine Metabolite NEGATIVE ng/mL <150 medMATCH Cocaine Metab CONSISTENT NRG Opiates POSITIVE ng/mL <100 Oxycodone NEGATIVE ng/mL <100 medMATCH Oxycodone CONSISTENT NRG COMMENT NRG Buprenorphine NEGATIVE ng/mL <5 MDMA NEGATIVE ng/mL <500 medMATCH MDMA CONSISTENT NRG Alcohol Metabolites NEGATIVE ng/mL <500 medMATCH Alcohol Metab CONSISTENT NRG 6 Acetylmorphine NEGATIVE ng/mL <10 medMATCH 6 Acetylmorphine CONSISTENT NRG Alphahydroxyalprazolam NEGATIVE ng/mL <25 medMATCH aOH alprazolam CONSISTENT NRG Alphahydroxymidazolam NEGATIVE ng/mL <50 medMATCH aOH midazolam CONSISTENT NRG Alphahydroxytriazolam NEGATIVE ng/mL <50 medMATCH aOH triazolam CONSISTENT NRG Aminoclonazepam 92 ng/mL <25 medMATCH Aminoclonazepam INCONSISTENT NRG Hydroxyethylflurazepam NEGATIVE ng/mL <50 medMATCH OH,Et flurazepam CONSISTENT NRG Lorazepam NEGATIVE ng/mL <50 medMATCH Lorazepam CONSISTENT NRG Nordiazepam NEGATIVE ng/mL <50 medMATCH Nordiazepam CONSISTENT NRG Oxazepam NEGATIVE ng/mL <50 medMATCH Oxazepam CONSISTENT NRG Temazepam NEGATIVE ng/mL <50 medMATCH Temazepam CONSISTENT NRG Codeine NEGATIVE ng/mL <50 medMATCH Codeine CONSISTENT NRG Hydrocodone NEGATIVE ng/mL <50 medMATCH Hydrocodone CONSISTENT NRG Hydromorphone NEGATIVE ng/mL <50 medMATCH Hydromorphone CONSISTENT NRG Morphine 99 ng/mL <50 medMATCH Morphine INCONSISTENT NRG Norhydrocodone NEGATIVE ng/mL <50 medMATCH Norhydrocodone CONSISTENT NRG medMATCH Buprenorphine CONSISTENT NRG Encounters ACCT No. Visit Date/Time Discharge Status Pt. Type Provider Facility Loc./Unit Complaint [id number] 11/11/2018 17:00:00 11/11/2018 23:59:59 [facility] Outpatient DARSHANA YOVANI J [facility] [id number] 11/11/2018 17:00:00 Document Registration [id number] 08/02/2018 13:20:00 Document Registration [id number] 12/31/2017 09:00:00 Document Registration [id number] 12/03/2017 16:20:00 Document Registration [id number] 07/19/2014 15:49:00 07/19/2014 23:59:59 CLS Outpatient LYNN BARNES [id number] 07/11/2014 14:35:00 07/11/2014 23:59:59 [facility] Outpatient MARTY NAVAS DO [id number] 05/04/2014 09:32:00 05/04/2014 23:59:59 CLS Outpatient NILE MACEDO APRN [id number] 04/24/2014 17:34:00 04/24/2014 23:59:59 CLS Outpatient NAVAS DOMARTY [id number] 04/04/2014 09:59:00 04/04/2014 23:59:59 CLS Outpatient BRITTANY LSCS LYNN Townsend [id number] 03/30/2014 10:58:00 03/30/2014 23:59:59 CLS Outpatient NILE MACEDO APRN [id number] 01/14/2014 10:57:00 01/14/2014 23:59:59 CLS Outpatient NAVAS DOMARTY Yue [id number] 09/15/2013 15:33:00 09/15/2013 23:59:59 CLS Outpatient JOMAR FAGAN MD [id number] 06/09/2013 08:38:00 06/09/2013 23:59:59 CLS Outpatient NAVAS DOMARTY Yue [id number] 05/20/2013 08:21:00 05/20/2013 23:59:59 CLS Outpatient NAVAS DOOFECarolina Turner [id number] 05/12/2013 10:50:00 05/12/2013 23:59:59 CLS Outpatient NAVAS DOMARTY Yue [id number] 05/06/2013 10:23:00 05/06/2013 23:59:59 CLS Outpatient YOSEF DOMARTY Yue [id number] 03/10/2013 14:52:00 03/10/2013 23:59:59 CLS Outpatient BRITTANY LSCSLYNN [id number] 01/27/2013 15:02:00 01/27/2013 23:59:59 CLS Outpatient BRITTANY LSCSLYNN [id number] 07/23/2012 15:07:00 07/23/2012 23:59:59 CLS Outpatient [id number] 07/08/2012 12:58:00 07/08/2012 23:59:59 CLS Outpatient [id number] 04/01/2012 13:52:00 04/01/2012 23:59:59 CLS Outpatient BRITTANY LSCSLYNN 50 02/12/2012 15:55:00 02/12/2012 23:59:59 CLS Outpatient [id number] 12/22/2012 14:43:00 Document Registration [id number] 11/25/2012 15:39:00 Document Registration [id number] 09/02/2012 14:31:00 Document Registration [id number] 07/28/2012 08:27:00 Document Registration [id number] 07/29/2018 06:07:00 07/29/2018 10:00:00 DIS Outpatient VASU ANDERSEN MD [facility] LEFT LATERAL TONGUE LESION [id number] 07/27/2018 13:41:00 07/28/2018 09:51:00 DIS Outpatient VASU ANDERSEN MD [facility] PREOP LEFT LATERAL TONGUE LESION [id number] 12/25/2017 16:15:00 12/25/2017 23:59:59 CLS Preadmit ELYSE CHACKO GEAR INSPECTOR [facility] RAD EDEMA OF LOWER EXTREMITY [id number] 07/16/2017 09:59:00 07/16/2017 23:59:59 CLS Outpatient TUSHAR LOVELACE GEAR INSPECTOR [facility] RAD ABD PAIN [id number] 05/08/2017 14:56:00 05/08/2017 23:59:59 CLS Outpatient TUSHAR LOVELACE GEAR INSPECTOR [facility] RAD LUMBAGO WITH ECLATICA UNSPECIFIED SIDE [id number] 02/04/2017 09:23:00 02/04/2017 11:39:00 DIS Emergency VIOLET MICHELE MD [facility] ER CONGESTION,FEVER,N/V [id number] 11/13/2016 14:08:00 11/13/2016 18:40:00 DIS Emergency YURIDIA OVERTON GEAR INSPECTOR [facility] ER OVERDOSE [id number] 02/07/2016 06:04:00 02/07/2016 14:25:00 DIS Outpatient JOSE ANTONIO ORTIZ DO [facility] INCISIONAL HERNIA [id number] 01/31/2016 15:11:00 01/31/2016 16:00:00 DIS Outpatient JOSE ANTONIO ORTIZ DO [facility] PREOP INCISIONAL HERNIA [id number] 01/02/2016 13:34:00 01/02/2016 23:59:59 CLS Outpatient JOSE ANTONIO ORTIZ DO [facility] RAD INCOMPLETE COLONOSCOPY,HX OF DIVERTICULITIS [id number] 01/01/2016 09:56:00 01/01/2016 15:20:00 DIS Outpatient JOSE ANTONIO ORTIZ DO [facility] HISTORY OF DIVERTICULITIS [id number] 12/31/2015 09:00:00 12/31/2015 09:26:00 DIS Outpatient JOSE ANTONIO ORTIZ DO [facility] PREOP HISTORY OF DIVERTICULITIS [id number] 11/06/2015 06:20:00 11/06/2015 09:27:00 DIS Emergency LILLIAN GRAHAM, AMBER Moreno [facility] ER CHILLS, N/V, BEEN SICK SINCE SURGERY IN JUNE [id number] 10/18/2015 07:29:00 10/18/2015 23:59:59 CLS Outpatient JOSE ANTONIO ORTIZ DO [facility] RAD LOWER ABD PAIN [id number] 08/21/2015 10:24:00 08/21/2015 23:59:59 CLS Outpatient IOANA VILLATORO [facility] RAD NAUSEA,VOMITING [id number] 06/11/2015 20:39:00 06/16/2015 16:40:00 DIS Inpatient DC GRAHAM, AUGUSTINE [facility] 4TH SMALL BOWEL INFLAMMATION ABD PAIN [id number] 04/13/2014 20:59:00 04/13/2014 21:50:00 DIS Emergency YURIDIA OVERTON APRN [facility] ER POSS BLADDER INFECTION [id number] 04/09/2014 19:03:00 04/09/2014 22:27:00 DIS Emergency EKTA CARPIO [facility] ER FEVER [id number] 03/01/2014 14:06:00 03/01/2014 23:59:59 CLS Outpatient ROSALINDA GRAHAM, MALINDA [facility] RAD L WRIST FX [id number] 05/08/2013 13:09:00 05/08/2013 15:45:00 DIS Emergency TERRELL SANTOS MD [facility] ER NUMBNESS IN R LEG FAINT HIGH BLOOD PRESSURE [id number] 01/10/2013 06:54:00 01/10/2013 13:05:00 DIS Outpatient TIFFANIE RUIZ MD [facility] SDC PAINFUL HARDWARE LEFT RADIUS [id number] 01/06/2013 14:06:00 01/06/2013 23:59:59 CLS Outpatient REVEAL TIFFANIE GRAHAM [facility] PREOP PAINFUL HARDWARE LEFT WRIST [id number] 10/04/2012 15:54:00 10/04/2012 23:59:59 CLS Outpatient [id number] 05/06/2012 06:00:00 Document Registration [id number] 05/05/2012 10:15:00 Document Registration [id number] 03/17/2012 06:00:00 Document Registration [id number] 03/16/2012 11:27:00 Document Registration [id number] 03/14/2012 17:13:00 Document Registration [id number] 02/10/2010 09:44:00 Document Registration
--- NOTE | 2018-11-21 22:24 | ED Lower Extremity ---
General Chief Complaint: Lower Extremity Stated Complaint: RT LEG PAIN Nursing Triage Note: PT STATES SHE WOKE UP THIS MORNING, STATES SHE FEELS LIKE HER ANKLES ARE MORE SWOLLEN AT THE POSTERIOR ASPECT, PT SHOWS THIS NURSE PINPOINT BRUISES THAT THE PT STATES WERE NOT THERE LAST NIGHT, NOTED PURPLE-RED BRUISES ON THE POSTERIOR CALVES. PT VERBALIZES PAIN UPON PALAPATION ON THE R CALF. Nursing Sepsis Screen: No Definite Risk Source: patient, other Exam Limitations: no limitations History of Present Illness Date Seen by Provider: Nov 21, 2018 Time Seen by Provider: 22:08 Initial Comments Patient presents to ER by private conveyance with her friend and chief complaint that yesterday she started expressing some right leg pain starting in her right buttock going down her right heel. It is only on the right side. She has a history of degenerative disc disease and back pain and uses ibuprofen typically 2-3 times a day. She's not had any today. She denies any trauma, falls or recent inciting and the incidences. 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 She said the pain started about evening after she got off work. Allergies and Home Medications Allergies Coded Allergies: No Known Drug Allergies (Unverified , 07/27/18) Home Medications Albuterol Sulfate 6.7 Gm Hfa.aer.ad, 2 PUFF IH Q4H PRN for SHORTNESS OF BREATH, (Reported) Albuterol Sulfate 1.25 Mg/3 Ml Vial.neb, 1.25 MG INH TID, (Reported) Clonazepam 1 Mg Tab.rapdis, 1 MG PO DAILY PRN for ANXIETY, (Reported) Duloxetine HCl 60 Mg Capsule.dr, 60 MG PO BID, (Reported) Fluticasone/Salmeterol 1 Each Blst.w.dev, 1 EACH IH BID, (Reported) Gabapentin 300 Mg Capsule, 300 MG PO TID, (Reported) TAKES 2 (300MG) CAPSULES Hydrocodone/Acetaminophen 1 Each Tablet, 1 TAB PO Q4-6HR Prescribed by: MADIE CHIANG on 07/29/18825 Ibuprofen 800 Mg Tablet, 800 MG PO Q8H PRN for PAIN-MILD, (Reported) Lidocaine HCl 15 Ml Solution, 15 ML MM NEEDED Prescribed by: MADIE CHIANG on 07/29/18825 Losartan Potassium 25 Mg Tablet, 25 MG PO BID, (Reported) Melatonin 3 Mg Tablet, 3 MG PO HS, (Reported) Pantoprazole Sodium 40 Mg Tablet.dr, 40 MG PO DAILY, (Reported) Polyethylene Glycol 3350 17 Gm Powd.pack, 17 GM PO DAILY, (Reported) Sertraline HCl 25 Mg Tablet, 25 MG PO DAILY, (Reported) Patient Home Medication List Home Medication List Reviewed: Yes Review of Systems Constitutional: No chills, No diaphoresis EENTM: No hearing loss, No ear pain Respiratory: No phlegm Cardiovascular: No chest pain, No edema Gastrointestinal: No abdominal pain, No constipation Past Ymmuyxp-Fqajar-Jugljs Hx Patient Social History Alcohol Use: Occasionally Uses Alcohol Beverage of Choice: Beer Recreational Drug Use: No Smoking Status: Current Everyday Smoker Type Used: Cigarettes 2nd Hand Smoke Exposure: Yes Recent Foreign Travel: No Contact w/Someone Who Travel: No Recent Infectious Disease Expo: No Recent Hopitalizations: No Immunizations Up To Date Tetanus Booster (TDap): More than 5yrs PED Vaccines UTD: Yes Date of Pneumonia Vaccine: Apr 20, 2011 Seasonal Allergies Seasonal Allergies: Yes Past Medical History Surgeries: Yes (5 surgeries left arm, SMALL BOWEL RESECTION) Abdominal, Gallbladder, Hysterectomy Respiratory: Yes COPD Currently Using CPAP: No Currently Using BIPAP: No Cardiac: Yes High Cholesterol, Hypertension Neurological: Yes Headaches /Migraines : No 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 Sexually Transmitted Disease: No HIV/AIDS: No Genitourinary: No Gastrointestinal: Yes (hernias) Gastroesophageal Reflux, Diverticulosis Musculoskeletal: Yes (RESTLESS LEG SYNDROME) Arthritis, Chronic Back Pain Endocrine: No HEENT: Yes Loss of Vision: Bilateral Hearing Impairment: Denies Cancer: No Psychosocial: Yes Depression Integumentary: No Blood Disorders: No Adverse Reaction/Blood Tranf: No (N/A) Family Medical History Asthma 19 FATHER G8 BROTHER G8 SISTER Completed stroke 19 FATHER Diabetes mellitus G8 SISTER FH: aneurysm 19 FATHER FH: stomach cancer 19 MOTHER FHx: drug dependence G8 BROTHER G8 SISTER Hypertension 19 FATHER 19 MOTHER Cancer, Stroke, Vascular Disease Physical Exam Vital Signs Vital Signs - First Documented 11/21/18 21:48 Temp 98.5 Pulse 101 Resp 20 B/P (MAP) 135/112 (120) Pulse Ox 99 O2 Delivery Room Air Capillary Refill : Less Than 3 Seconds Height, Weight, BMI Height: 5'2.00" Weight: 186lbs. 0.0oz. 84.697665xw; 34.2 BMI Method:Stated General Appearance: WD/WN, no apparent distress HEENT: PERRL/EOMI, normal ENT inspection Neck: non-tender, full range of motion Cardiovascular: normal peripheral pulses, regular rate, rhythm Respiratory: no respiratory distress, no accessory muscle use Gastrointestinal: non tender, soft Back: normal inspection, vertebral tenderness (lumbar vertebral tenderness especially on the right side.) Hips: bilateral hip other (pain on straight leg raise and pain on palpation over the buttock.) Neurologic/Tendon: normal sensation, normal motor functions, normal tendon functions Neurologic/Psychiatric: alert, normal mood/affect, oriented x 3 Skin: normal color, warm/dry Progress/Results/Core Measures Results/Orders Vital Signs/I&O 11/21/18 21:48 Temp 98.5 Pulse 101 Resp 20 B/P (MAP) 135/112 (120) Pulse Ox 99 O2 Delivery Room Air Blood Pressure Mean: 120 Progress Progress Note : Time: 22:20 Progress Note Suspect that she's having some sciatic leg pain. Recommend she follow up in 1-2 weeks with primary care. Give her a shot of Depo-Medrol, Toradol since she has not taken ibuprofen today and have her continue Tylenol and ibuprofen at home. She has a back brace so we'll encourage warm compresses. We suspect that her high blood pressure is because of her pain. 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 Departure Impression Primary Impression: Lumbago with sciatica, right side Qualified Codes: M54.41 - Lumbago with sciatica, right side Additional Impression: Petechiae Disposition: 01 HOME, SELF-CARE Condition: Stable Departure-Patient Inst. Decision time for Depature: 22:22 Referrals: MARTY NAVAS DO (PCP) Primary Care Physician YOVANI GILLILAND APRN (Family) Primary Care Physician Patient Instructions: Sciatica (DC), Sciatica Exercises Add. Discharge Instructions: Tylenol 1000 mg every 8 hours in addition to ibuprofen 800 mg every 8 hours for pain. You may also use Naprosyn 2 tablets twice a day instead of ibuprofen. Wear a back brace use heating pads and consider using a chiropractor. Follow-up with primary care in 7-10 days for reevaluation. If you begin to experience new or worsening symptoms then return to the ER for further evaluation. All discharge instructions reviewed with patient and/or family. Voiced understanding. JUANCARLOS SUAREZ Nov 21, 2018 22:24
[2018-11-21] MEDS ORDERED: KETOROLAC 30 MG/ML VIAL IVP ONE (22:30)
[2018-11-21] MEDS ORDERED: methylPREDNISolone 40 MG/ML (DEPO MEDROL) VIAL IM ONE (22:30)
[2018-11-21] MEDS ORDERED: KETOROLAC 30 MG/ML VIAL IM ONE (22:30)
[2018-11-21 22:42] VITALS: BP 173/101
== END 2018-11-21 22:42 | disposition home or self-care (01) ==
LOC: EDUNIT# 21:38 → ER 21:41
DX: M54.41 Lumbago with sciatica, right side (principal); R23.3 Spontaneous ecchymoses; I10 Essential (primary) hypertension; E78.00 Pure hypercholesterolemia, unspecified; J44.9 Chronic obstructive pulmonary disease, unspecified; G43.909 Migraine, unspecified, not intractable, without status migrainosus; F32.9 Major depressive disorder, single episode, unspecified; K21.9 Gastro-esophageal reflux disease without esophagitis; H54.7 Unspecified visual loss; F17.210 Nicotine dependence, cigarettes, uncomplicated; Z79.51 Long term (current) use of inhaled steroids; Z90.710 Acquired absence of both cervix and uterus; Z87.19 Personal history of other diseases of the digestive system; Z80.0 Family history of malignant neoplasm of digestive organs; Z82.49 Family history of ischemic heart disease and other diseases of the circulatory system
CPT/HCPCS: 96372; 96374

== ENCOUNTER 2020-03-25 13:57 | Emergency (ER) | payer MEDICAID ==
[~2020-03-25] VITALS: Ht 157 cm; Wt 95.0 kg
[~2020-03-25 13:57] MED LIST changes: +AMLO-251 PO; -AMLO10TA7 PO; -HYDR-3812 PO; -LIDO15SO2 MM; +LIDO20SO23 MM; -MAGN296S50 PO; +MAGN296S71 PO; -MELA3TAB PO; +MELA3TAB39 PO; -PANT40TA3 PO; +PANT40TA52 PO; -TRAZ-222 PO; +TRZ50T PO
[2020-03-25 14:25] LABS: BASOPHILS # (AUTO) 0.1 10^3/uL (0.0-0.1); BASOPHILS % (AUTO) 1 % (0-10); EOSINOPHILS # (AUTO) 0.3 10^3/uL (0.0-0.3); EOSINOPHILS % (AUTO) 2 % (0-10); HEMATOCRIT 40 % (35-52); HEMOGLOBIN 12.4 g/dL (11.5-16.0); LYMPHOCYTES # (AUTO) 2.5 10^3/uL (1.0-4.0); LYMPHOCYTES % (AUTO) 16 % (12-44); MEAN CORPUSCULAR HEMOGLOBIN 25 pg (25-34); MEAN CORPUSCULAR HGB CONC 31 g/dL (32-36); MEAN CORPUSCULAR VOLUME 80 fL (80-99); MEAN PLATELET VOLUME 9.8 fL (9.0-12.2); MONOCYTES # (AUTO) 1.1 10^3/uL (0.0-1.0); MONOCYTES % (AUTO) 7 % (0-12); NEUTROPHILS # (AUTO) 11.6 10^3/uL (1.8-7.8); NEUTROPHILS % (AUTO) 74 % (42-75); PLATELET COUNT 380 10^3/uL (130-400); WHITE BLOOD COUNT 15.7 10^3/uL (4.3-11.0)
[2020-03-25 14:28] LABS: BILIRUBIN,URINE NEGATIVE (NEGATIVE); CLARITY,URINE CLEAR; COLOR,URINE YELLOW; GLUCOSE, URINE (UA) NEGATIVE (NEGATIVE); KETONES,URINE NEGATIVE (NEGATIVE); LEUKOCYTE ESTERASE ,URINE NEGATIVE (NEGATIVE); NITRITE,URINE NEGATIVE (NEGATIVE); PH,URINE 7.5 (5-9); PROTEIN,URINE TRACE (NEGATIVE)
[2020-03-25] MEDS ORDERED: LORazepam INJ 2 MG/ML (ATIVAN) VIAL IVP ONE (14:30)
[2020-03-25] MEDS ORDERED: LACTATED RINGERS 1,000 ML IV ONE (14:30)
[2020-03-25] MEDS ORDERED: fentaNYL INJECTION 100 MCG/2 ML AMP IVP ONE (14:30)
[2020-03-25 14:36] LABS: CHLORIDE 99 MMOL/L (98-107); POTASSIUM 3.9 MMOL/L (3.6-5.0); SODIUM 139 MMOL/L (135-145)
[2020-03-25 14:37] LABS: CALCIUM 8.9 MG/DL (8.5-10.1)
[2020-03-25 14:38] LABS: GLUCOSE 145 MG/DL (70-105); TOTAL PROTEIN 7.6 GM/DL (6.4-8.2)
[2020-03-25 14:39] LABS: CARBON DIOXIDE 27 MMOL/L (21-32)
[2020-03-25 14:40] LABS: BILIRUBIN,TOTAL 0.4 MG/DL (0.1-1.0)
[2020-03-25 14:42] LABS: ALKALINE PHOSPHATASE 88 U/L (40-136); CREATININE SERUM 0.71 MG/DL (0.60-1.30); GFR ESTIMATED > 60
[2020-03-25 14:43] LABS: BUN/CREATININE RATIO 15
[2020-03-25 14:44] LABS: BACTERIA,URINE TRACE /HPF
[2020-03-25 14:45] LABS: ALANINE AMINOTRANSFERASE 18 U/L (0-55); LIPASE 17 U/L (8-78)
--- NOTE | 2020-03-25 14:45 | NUR ---
Pt arrives with c/o LLQ pain; states it started last night. Pt appears very anxious and reports she does have anxiety. Pt reassurance provided and ERP aware of anxiety.
[2020-03-25] MEDS ORDERED: NS 100 ML (IVPB) BAG IV ONE (15:00)
[2020-03-25] MEDS ORDERED: IOHEXOL 350 MG/ML 100 ML (OMNIPAQUE 350) VIAL IV ONE (15:00)
[2020-03-25] MEDS ORDERED: HOLD METFORMIN - RECEIVED CONTRAST 20 ML VIAL IV SCH (15:00)
--- NOTE | 2020-03-25 15:30 | NUR ---
Pt appears less anxious and is resting. Pt on monitor; will continue to monitor.
[2020-03-25 15:31] LABS: EOSINOPHILS % (MANUAL) 1 %; LYMPHOCYTES % (MANUAL) 14 %; MONOCYTES % (MANUAL) 3 %; NEUTROPHILS % (MANUAL) 82 %
--- NOTE | 2020-03-25 15:31 | Diagnostic Imaging Report ---
CT ABDOMEN/PELVIS W TECHNIQUE: Multiple contiguous axial images were obtained through the abdomen and pelvis after administration of intravenous contrast. All CT scans use one or more of the following dose optimizing techniques: automated exposure control, MA and/or KvP adjustment based on patient size and exam type or iterative reconstruction. INDICATION: Left-sided abdominal pain. COMPARISON: 07/16/2017. FINDINGS: Lower chest: Right basilar bandlike atelectasis. Otherwise, lungs are clear. Peritoneum: No free intraperitoneal air or fluid. Liver and biliary system: Diffuse hypoattenuation of liver is indicative of hepatic steatosis. No focal hepatic lesion. Portal vein is patent. Cholecystectomy. No pathologic biliary duct dilatation. Spleen and Pancreas: Spleen is normal. The pancreas enhances normally without mass lesion or peripancreatic inflammatory change. Adrenals: The 1.7 cm right adrenal nodule is unchanged. No left adrenal nodule. tract: The kidneys enhance normally without suspicious mass or obstruction. No ureteral calculi. Urinary bladder is distended without wall thickening. Hysterectomy. No adnexal mass. GI tract: Stomach is decompressed. No bowel obstruction. Changes of partial small bowel resection with enteroenteric anastomosis in the left lower quadrant. No pericolonic inflammatory changes. Descending and sigmoid colon diverticulosis without diverticulitis. Normal appendix. Vasculature and Lymph nodes: Normal caliber aorta has moderate atherosclerotic plaquing present. No abdominal or pelvic lymphadenopathy. Musculoskeletal: No concerning osseous lesion. Diastasis of the rectus abdominis without hosea herniation. IMPRESSION: 1. No acute obstructive or inflammatory process in the abdomen and pelvis. 2. Diffuse hepatic steatosis. Dictated by: Dictated on workstation # [id number]
[2020-03-25 15:32] LABS: RBC MORPH NORMAL
[2020-03-25] MEDS ORDERED: FAMOTIDINE 20MG/2ML IV (PEPCID) IVP ONE (16:00)
[2020-03-25] MEDS ORDERED: LIDOCAINE 2% VISCOUS 15 ML UDC PO ONE (16:00)
[2020-03-25] MEDS ORDERED: ONDANSETRON 4 MG/2 ML (SDV) Z0FRAN IVP ONE (16:00)
[2020-03-25] MEDS ORDERED: ANTACID SUSP 30 ML UDC (MYLANTA) PO ONE (16:00)
--- NOTE | 2020-03-25 16:16 | ED Abdominal Pain ---
General Chief Complaint: Abdominal/GI Problems Stated Complaint: L SIDE ABD PAIN Nursing Triage Note: Pt here with left abdominal pain; onset yesterday. Describes as sharp. Sepsis Screen: No Definite Risk Source of Information: Patient Exam Limitations: No Limitations History of Present Illness Date Seen by Provider: Mar 25, 2020 Time Seen by Provider: 14:07 Initial Comments This 55-year-old woman presents to the emergency room with very sharp intense left upper quadrant pain that started yesterday. She denies fever, vomiting, diarrhea, or constipation. She has had numerous abdominal surgeries. She also has a history of diverticulitis. She additionally is quite anxious and admits to problems with anxiety. She has a chronic wheeze from COPD. Allergies and Home Medications Allergies Coded Allergies: No Known Drug Allergies (Unverified , 07/27/18) Home Medications Albuterol Sulfate 6.7 Gm Hfa.aer.ad, 2 PUFF IH Q4H PRN for SHORTNESS OF BREATH, (Reported) Albuterol Sulfate 1.25 Mg/3 Ml Vial.neb, 1.25 MG INH TID, (Reported) Clonazepam 1 Mg Tab.rapdis, 1 MG PO DAILY PRN for ANXIETY, (Reported) Duloxetine HCl 60 Mg Capsule.dr, 60 MG PO BID, (Reported) Fluticasone/Salmeterol 1 Each Blst.w.dev, 1 EACH IH BID, (Reported) Gabapentin 300 Mg Capsule, 300 MG PO TID, (Reported) TAKES 2 (300MG) CAPSULES Hydrocodone Bit/Acetaminophen 1 Each Tablet, 1 TAB PO Q4-6HR Prescribed by: MADIE CHIANG on 07/29/18825 Ibuprofen 800 Mg Tablet, 800 MG PO Q8H PRN for PAIN-MILD, (Reported) Levofloxacin 500 Mg Tablet, 500 MG PO DAILY Prescribed by: AMBER GANT on 03/25/201740 Lidocaine HCl 15 Ml Solution, 15 ML MM NEEDED Prescribed by: MADIE CHIANG on 07/29/18825 Losartan Potassium 25 Mg Tablet, 25 MG PO BID, (Reported) Melatonin 3 Mg Tablet, 3 MG PO HS, (Reported) Metronidazole 500 Mg Tablet, 500 MG PO TID Prescribed by: AMBER GANT on 03/25/201740 Pantoprazole Sodium 40 Mg Tablet.dr, 40 MG PO DAILY, (Reported) Polyethylene Glycol 3350 17 Gm Powd.pack, 17 GM PO DAILY, (Reported) Sertraline HCl 25 Mg Tablet, 25 MG PO DAILY, (Reported) Patient Home Medication List Home Medication List Reviewed: Yes Review of Systems Review of Systems Constitutional: no symptoms reported EENTM: No Symptoms Reported Respiratory: See HPI Cardiovascular: No Symptoms Reported Gastrointestinal: See HPI Genitourinary: No Symptoms Reported Musculoskeletal: no symptoms reported Skin: no symptoms reported Psychiatric/Neurological: See HPI Endocrine: No Symptoms Reported Hematologic/Lymphatic: No Symptoms Reported Past Ppvyzwx-Zyqanx-Bjktir Hx Past Med/Social Hx: Reviewed Nursing Past Med/Soc Hx Patient Social History Alcohol Use: Occasionally Uses Number of Drinks Today: AA Alcohol Beverage of Choice: Beer Recreational Drug Use: No Smoking Status: Current Everyday Smoker Type Used: Cigarettes 2nd Hand Smoke Exposure: Yes Recent Foreign Travel: No Contact w/Someone Who Travel: No Recent Infectious Disease Expo: No Recent Hopitalizations: No Immunizations Up To Date Tetanus Booster (TDap): More than 5yrs PED Vaccines UTD: Yes Date of Pneumonia Vaccine: Apr 20, 2011 Seasonal Allergies Seasonal Allergies: Yes Past Medical History Surgeries: Yes (5 surgeries left arm, SMALL BOWEL RESECTION) Abdominal, Gallbladder, Hysterectomy Respiratory: Yes COPD Currently Using CPAP: No Currently Using BIPAP: No Cardiac: Yes High Cholesterol, Hypertension Neurological: Yes Headaches /Migraines 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 Sexually Transmitted Disease: No HIV/AIDS: No Genitourinary: No Gastrointestinal: Yes (hernias) Gastroesophageal Reflux, Diverticulosis Musculoskeletal: Yes (RESTLESS LEG SYNDROME) Arthritis, Chronic Back Pain Endocrine: No HEENT: Yes Loss of Vision: Bilateral Hearing Impairment: Denies Cancer: No Psychosocial: Yes Depression Integumentary: No Blood Disorders: No Adverse Reaction/Blood Tranf: No (N/A) Family Medical History Reviewed Nursing Family Hx Asthma 19 FATHER G8 BROTHER G8 SISTER Completed stroke 19 FATHER Diabetes mellitus G8 SISTER FH: aneurysm 19 FATHER FH: stomach cancer 19 MOTHER FHx: drug dependence G8 BROTHER G8 SISTER Hypertension 19 FATHER 19 MOTHER Cancer, Stroke, Vascular Disease Physical Exam Vital Signs Vital Signs - First Documented 03/25/20 14:00 Temp 36.7 Pulse 110 Resp 20 B/P (MAP) 168/111 (130) Pulse Ox 96 O2 Delivery Room Air Capillary Refill : Less Than 3 Seconds Height/Weight/BMI Height: 5'2.00" Weight: 186lbs. 0.0oz. 84.666419gt; 38.00 BMI Method:Stated General Appearance: WD/WN, moderate distress HEENT: PERRL/EOMI, normal ENT inspection Neck: full range of motion Respiratory: lungs clear, normal breath sounds, no respiratory distress, no acc essory muscle use Cardiovascular: no edema, no murmur, tachycardia Gastrointestinal: soft, abnormal bowel sounds (Decrease), tenderness (Focused in the left upper quadrant with positive Rovsing. 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, no motor/sensory deficits, alert, oriented x 3, other (Anxious) Skin: normal color, warm/dry Focused Exam Lactate Level 03/25/20 17:00: Lactic Acid Level 1.56 Lactic Acid Level Laboratory Tests Test 03/25/20 17:00 Lactic Acid Level 1.56 MMOL/L (0.50-2.00) Progress/Results/Core Measures Results/Orders Lab Results Laboratory Tests Test 03/25/20 14:15 03/25/20 14:16 03/25/20 17:00 Range/Units White Blood Count 15.7 H 4.3-11.0 10^3/uL Red Blood Count 4.96 3.80-5.11 10^6/uL Hemoglobin 12.4 11.5-16.0 g/dL Hematocrit 40 35-52 % Mean Corpuscular Volume 80 80-99 fL Mean Corpuscular Hemoglobin 25 25-34 pg Mean Corpuscular Hemoglobin Concent 31 L 32-36 g/dL Red Cell Distribution Width 16.3 H 10.0-14.5 % Platelet Count 380 130-400 10^3/uL Mean Platelet Volume 9.8 9.0-12.2 fL Immature Granulocyte % (Auto) 0 % Neutrophils (%) (Auto) 74 42-75 % Lymphocytes (%) (Auto) 16 12-44 % Monocytes (%) (Auto) 7 0-12 % Eosinophils (%) (Auto) 2 0-10 % Basophils (%) (Auto) 1 0-10 % Neutrophils # (Auto) 11.6 H 1.8-7.8 10^3/uL Lymphocytes # (Auto) 2.5 1.0-4.0 10^3/uL Monocytes # (Auto) 1.1 H 0.0-1.0 10^3/uL Eosinophils # (Auto) 0.3 0.0-0.3 10^3/uL Basophils # (Auto) 0.1 0.0-0.1 10^3/uL Immature Granulocyte # (Auto) 0.1 0.0-0.1 10^3/uL Neutrophils % (Manual) 82 % Lymphocytes % (Manual) 14 % Monocytes % (Manual) 3 % Eosinophils % (Manual) 1 % Blood Morphology Comment NORMAL Prothrombin Time 13.9 12.2-14.7 SEC INR Comment 1.0 0.8-1.4 Activated Partial Thromboplast Time 41 H 24-35 SEC Sodium Level 139 135-145 MMOL/L Potassium Level 3.9 3.6-5.0 MMOL/L Chloride Level 99 98-107 MMOL/L Carbon Dioxide Level 27 21-32 MMOL/L Anion Gap 13 5-14 MMOL/L Blood Urea Nitrogen 11 7-18 MG/DL Creatinine 0.71 0.60-1.30 MG/DL Estimat Glomerular Filtration Rate > 60 BUN/Creatinine Ratio 15 Glucose Level 145 H 70-105 MG/DL Calcium Level 8.9 8.5-10.1 MG/DL Corrected Calcium 8.9 8.5-10.1 MG/DL Total Bilirubin 0.4 0.1-1.0 MG/DL Aspartate Amino Transf (AST/SGOT) 17 5-34 U/L Alanine Aminotransferase (ALT/SGPT) 18 0-55 U/L Alkaline Phosphatase 88 40-136 U/L C-Reactive Protein High Sensitivity 16.14 H 0.00-0.50 MG/DL Total Protein 7.6 6.4-8.2 GM/DL Albumin 4.0 3.2-4.5 GM/DL Lipase 17 8-78 U/L Urine Color YELLOW Urine Clarity CLEAR Urine pH 7.5 5-9 Urine Specific [place] 1.015 L 1.016-1.022 Urine Protein TRACE H NEGATIVE Urine Glucose (UA) NEGATIVE NEGATIVE Urine Ketones NEGATIVE NEGATIVE Urine Nitrite NEGATIVE NEGATIVE Urine Bilirubin NEGATIVE NEGATIVE Urine Urobilinogen 0.2 < = 1.0 MG/DL Urine Leukocyte Esterase NEGATIVE NEGATIVE Urine RBC (Auto) NEGATIVE NEGATIVE Urine RBC NONE /HPF Urine WBC 10-25 H /HPF Urine Squamous Epithelial Cells 10-25 H /HPF Urine Crystals NONE /LPF Urine Bacteria TRACE /HPF Urine Casts NONE /LPF Urine Mucus NEGATIVE /LPF Urine Culture Indicated YES Lactic Acid Level 1.56 0.50-2.00 MMOL/L My Orders Orders - AMBER SNYDER MD Ed Iv/Invasive Line Start (03/25/20 14:18) Lactated Ringers (Lr 1000 Ml Iv Solution (03/25/20 14:30) Cbc With Automated Diff (03/25/20 14:18) Comprehensive Metabolic Panel (03/25/20 14:18) Hs C Reactive Protein (03/25/20 14:18) Lipase (03/25/20 14:18) Ua Culture If Indicated (03/25/20 14:18) Fentanyl Injection (Sublimaze Injection (03/25/20 14:30) Lorazepam Injection (Ativan Injection) (03/25/20 14:30) Manual Differential (03/25/20 14:15) Urine Culture (03/25/20 14:16) Ct Abdomen/Pelvis W (03/25/20 14:49) Iohexol Injection (Omnipaque 350 Mg/Ml 1 (03/25/20 15:00) Received Contrast (Hold Metformin- Contr (03/25/20 15:00) Ns (Ivpb) (Sodium Chloride 0.9% Ivpb Bag (03/25/20 15:00) Famotidine Injection (Pepcid Injection) (03/25/20 16:00) Ondansetron Injection (Zofran Injectio (03/25/20 16:00) Lidocaine 2% Viscous 15 Ml (Xylocaine Vi (03/25/20 16:00) Antacid Suspension (Mylanta Suspension (03/25/20 16:00) Blood Culture (03/25/20 16:31) Protime With Inr (03/25/20 16:31) Partial Thromboplastin Time (03/25/20 16:31) Chest 1 View, Ap/Pa Only (03/25/20 16:31) Vital Signs Adult Sepsis Patie Q15M (03/25/20 16:31) O2 (03/25/20 16:31) Remove Rings In Anticipation O (03/25/20 16:31) Lactic Acid Analyzer (03/25/20 16:31) Piperacillin Sodium/Tazobactam (Zosyn Vi (03/25/20 16:45) Ketorolac Injection (Toradol Injection) (03/25/20 17:15) Ns Iv 1000 Ml (Sodium Chloride 0.9%) (03/25/20 17:15) Levofloxacin Tablet (Levaquin Tablet) (03/25/20 17:45) Metronidazole 500mg/100ml Ivpb (Flagyl 5 (03/25/20 17:45) Medications Given in ED Current Medications Medications Dose Ordered Sig/Ny Route Start Time Stop Time Status Last Admin Dose Admin Al Hydrox/Mg Hydrox/Simethicone 30 ml ONCE ONCE PO 03/25/20 16:00 03/25/20 16:01 DC 03/25/20 16:08 30 ML Famotidine 20 mg ONCE ONCE IVP 03/25/20 16:00 03/25/20 16:01 DC 03/25/20 16:05 20 MG Fentanyl Citrate 75 mcg ONCE ONCE IVP 03/25/20 14:30 03/25/20 14:31 DC 03/25/20 14:28 75 MCG Iohexol 100 ml ONCE ONCE IV 03/25/20 15:00 03/25/20 15:01 DC 03/25/20 15:15 100 ML Ketorolac Tromethamine 15 mg ONCE ONCE IVP 03/25/20 17:15 03/25/20 17:16 DC 03/25/20 17:30 15 MG Lactated Ringer's 1,000 ml @ 0 mls/hr Q0M ONCE IV 03/25/20 14:30 03/25/20 14:31 DC 03/25/20 14:25 1,000 MLS/HR Lidocaine HCl 15 ml ONCE ONCE PO 03/25/20 16:00 03/25/20 16:01 DC 03/25/20 16:08 15 ML Lorazepam 0.5 mg ONCE ONCE IVP 03/25/20 14:30 03/25/20 14:31 DC 03/25/20 14:28 0.5 MG Ondansetron HCl 8 mg ONCE ONCE IVP 03/25/20 16:00 03/25/20 16:01 DC 03/25/20 16:05 8 MG Piperacillin Sod/ Tazobactam Sod 4.5 gm/Sodium Chloride 100 ml @ 200 mls/hr ONCE ONCE IV 03/25/20 16:45 03/25/20 17:14 DC 03/25/20 17:09 200 MLS/HR Sodium Chloride 100 ml ONCE ONCE IV 03/25/20 15:00 03/25/20 15:01 DC 03/25/20 15:15 80 ML Vital Signs/I&O 03/25/20 14:00 Temp 36.7 Pulse 110 Resp 20 B/P (MAP) 168/111 (130) Pulse Ox 96 O2 Delivery Room Air 2 Blood Pressure Mean: 130 Progress Progress Note #1: Time: 16:[address] scan was unremarkable in regard to determining etiology of her pain. She does have elevated WBC and CRP as well as tachycardia. Mild UTI was identified as a possible source of infection but does not explain her abdominal pain. We are trying a GI cocktail to determine if that resolves her pain. Progress Note #2: Time: 18:12 Progress Note GI cocktail did not improve her pain. Blood cultures and lactic acid were drawn. Lactic acid was normal. I have been concerned about the intensity of her pain and her elevated WBC and CRP. However, I have not found a significant source of infection. The pyuria was not very impressive. She has been treated with Zosyn by IV route. I discussed admission with Dr. Garcia and with the patient. Patient is extremely reluctant to be admitted due to the fact that she has a rescue dog at home that needs to be cared for. Dr. Garcia is agreeable to discharge with cautious observation at home. Patient was further treated with Levaquin and Flagyl which she will continue at home. She elects to be discharged and clearly promises to return for worsening symptoms. Toradol was given for pain prior to discharge. I did not prescribe any pain medication as I do not want to mask worsening symptoms if she is going home. I discussed the case with Dr. Kraft who is agreeable to plan and will see her in the office. Diagnostic Imaging Diagonstic Imaging: CT Plain Films/CT/US/NM/MRI: abdomen, pelvis Comments CT abdomen and pelvis viewed by me and report reviewed. See report below: NAME: BRANDEE GALDAMEZ [facility] REC#: [id number] PT STATUS: REG ER : 1965 PHYSICIAN: AMBER SNYDER MD ADMIT DATE: 03/25/20/ER Signed Date of Exam:03/25/20 CT ABDOMEN/PELVIS W TECHNIQUE: Multiple contiguous axial images were obtained through the abdomen and pelvis after administration of intravenous contrast. All CT scans use one or more of the following dose optimizing techniques: automated exposure control, MA and/or KvP adjustment based on patient size and exam type or iterative reconstruction. INDICATION: Left-sided abdominal pain. COMPARISON: 07/16/2017. FINDINGS: Lower chest: Right basilar bandlike atelectasis. Otherwise, lungs are clear. Peritoneum: No free intraperitoneal air or fluid. Liver and biliary system: Diffuse hypoattenuation of liver is indicative of hepatic steatosis. No focal hepatic lesion. Portal vein is patent. Cholecystectomy. No pathologic biliary duct dilatation. Spleen and Pancreas: Spleen is normal. The pancreas enhances normally without mass lesion or peripancreatic inflammatory change. Adrenals: The 1.7 cm right adrenal nodule is unchanged. No left adrenal nodule. tract: The kidneys enhance normally without suspicious mass or obstruction. No ureteral calculi. Urinary bladder is distended without wall thickening. Hysterectomy. No adnexal mass. GI tract: Stomach is decompressed. No bowel obstruction. Changes of partial small bowel resection with enteroenteric anastomosis in the left lower quadrant. No pericolonic inflammatory changes. Descending and sigmoid colon diverticulosis without diverticulitis. Normal appendix. Vasculature and Lymph nodes: Normal caliber aorta has moderate atherosclerotic plaquing present. No abdominal or pelvic lymphadenopathy. Musculoskeletal: No concerning osseous lesion. Diastasis of the rectus abdominis without hosea herniation. IMPRESSION: 1. No acute obstructive or inflammatory process in the abdomen and pelvis. 2. Diffuse hepatic steatosis. Dictated by: Dictated on workstation # [id number] Dict: 03/25/20 1522 Trans: 03/25/20 1537 [facility] [id number] Interpreted by: ELISEO MYLES MD Electronically signed by: ELISEO MYLES MD 03/25/20 1537 Diagonstic Imaging: Xray Plain Films/CT/US/NM/MRI: chest Comments NAME: BRANDEE GALDAMEZ [facility] REC#: [id number] PT STATUS: REG ER : 1965 PHYSICIAN: AMBER SNYDER MD ADMIT DATE: 03/25/20/ER Draft Date of Exam:03/25/20 CHEST 1 VIEW, AP/PA ONLY INDICATION: Sepsis. COMPARISON: Prior study from 07/27/2018. FINDINGS: Cardiac silhouette mildly accentuated by AP technique on today's exam. There is no alveolar consolidation evident. There is some minimal patchy atelectasis at the left base. There is no significant effusion. There is no pneumothorax. Pulmonary vascularity appears appropriate. IMPRESSION: Minimal linear atelectasis at the left lung base. No alveolar consolidation or focal infiltrate evident. There is no effusion. Pulmonary vascularity appears appropriate. Dictated on workstation # [id number] Dict: 03/25/201713 Trans: 03/25/201716 [facility] [id number] Interpreted by: TENNILLE OSBORNE MD Reviewed: Reviewed by Me Departure Impression Primary Impression: Left upper quadrant pain Additional Impressions: Urinary tract infection Qualified Codes: N39.0 - Urinary tract infection, site not specified Anxiety Leukocytosis Qualified Codes: D72.829 - Elevated white blood cell count, unspecified Disposition: 01 HOME, SELF-CARE Condition: Improved Departure-Patient Inst. Decision time for Depature: 17:40 Referrals: [facility] (PCP/Family) Primary Care Physician GEOVANNI KRAFT DO Patient Instructions: Severe Abdominal Pain, Adult (DC) Add. Discharge Instructions: Start with a clear liquid diet, then gradually advance your diet with small quantities of bland food as tolerated. Avoid NSAID medications such as ibuprofen, Aleve, naproxen, and aspirin as these may irritate your stomach more. You may take Tylenol (acetaminophen) up to 1000 mg every 6 hours as needed for pain. Fill your antibiotics in the morning and complete the entire course unless otherwise instructed. Follow-up with your primary care provider tomorrow. Please call first thing in the morning to make arrangements. Fill and start your antibiotics as soon as possible. Please contact Dr. Kraft (surgeon) tomorrow morning to arrange follow-up in his office for further evaluation of your abdominal pain. His number is below. Return to the emergency room if you have worsening symptoms or you develop new symptoms such as vomiting, fever, etc. All discharge instructions reviewed with patient and/or family. Voiced unders tanding. Scripts Levofloxacin (Levofloxacin) 500 Mg Tablet 500 MG PO DAILY, #6 TAB Prov: AMBER SNYDER MD 03/25/20 Metronidazole (Flagyl) 500 Mg Tablet 500 MG PO TID, #20 TAB Prov: AMBER SNYDER MD 03/25/20 Copy Copies To 1: MARTY NAVAS DO Copies To 2: GEOVANNI KRAFT JOSHUA T MD Mar 25, 2020 16:16
[2020-03-25] MEDS ORDERED: PIPERACILLIN SODIUM/TAZOBACTAM 4.5 GM in NS (IVPB) 100 ML IV ONE (16:45)
[2020-03-25 16:46] LABS: PROTHROMBIN TIME PATIENT 13.9 SEC (12.2-14.7)
[2020-03-25] MEDS ORDERED: NS IV 1000 ML 1,000 ML IV SCH (17:15)
[2020-03-25] MEDS ORDERED: KETOROLAC 30 MG/ML VIAL IVP ONE (17:15)
--- NOTE | 2020-03-25 17:18 | Diagnostic Imaging Report ---
INDICATION: Sepsis. COMPARISON: Prior study from 07/27/2018. FINDINGS: Cardiac silhouette mildly accentuated by AP technique on today's exam. There is no alveolar consolidation evident. There is some minimal patchy atelectasis at the left base. There is no significant effusion. There is no pneumothorax. Pulmonary vascularity appears appropriate. IMPRESSION: Minimal linear atelectasis at the left lung base. No alveolar consolidation or focal infiltrate evident. There is no effusion. Pulmonary vascularity appears appropriate. Dictated by: Dictated on workstation # [id number]
[2020-03-25] MEDS ORDERED: METR500T PO (17:41)
[2020-03-25] MEDS ORDERED: LEVO500T80 PO (17:41)
[2020-03-25] MEDS ORDERED: LEVOFLOXACIN 500 MG TAB (LEVAQUIN) PO ONE ×2 (17:45→18:15)
[2020-03-25] MEDS ORDERED: metroNIDAZOLE 500MG/100ML IVPB 100 ML IV ONE (17:45)
[2020-03-25] MEDS ORDERED: metroNIDAZOLE 500 MG (FLAGYL) TAB PO ONE (18:15)
[2020-03-25 18:40] VITALS: BP 146/97
== END 2020-03-25 18:40 | disposition home or self-care (01) ==
LOC: EDUNIT# 13:57 → ER 13:58
DX: R10.12 Left upper quadrant pain (principal); N39.0 Urinary tract infection, site not specified; F41.9 Anxiety disorder, unspecified; D72.829 Elevated white blood cell count, unspecified; J44.9 Chronic obstructive pulmonary disease, unspecified; F32.9 Major depressive disorder, single episode, unspecified; K21.9 Gastro-esophageal reflux disease without esophagitis; G89.29 Other chronic pain; M54.9 Dorsalgia, unspecified; I10 Essential (primary) hypertension; F17.210 Nicotine dependence, cigarettes, uncomplicated; Z82.49 Family history of ischemic heart disease and other diseases of the circulatory system; Z83.3 Family history of diabetes mellitus; Z80.0 Family history of malignant neoplasm of digestive organs; Z79.891 Long term (current) use of opiate analgesic
CPT/HCPCS: 36415; 71045; 74177; 80053; 81000; 83605; 83690; 85007; 85027; 85610; 85730; 86141; 87040; 87088

== ENCOUNTER 2020-07-23 19:35 | Emergency (ER) | payer MEDICAID ==
[~2020-07-23] VITALS: Ht 157.5 cm; Wt 77.0 kg
[~2020-07-23 19:35] MED LIST changes: +LEVO500T80 PO
[2020-07-23 19:40] VITALS: BP 152/93
[2020-07-23] MEDS ORDERED: AUGMENTIN 875 MG TAB (AMOXICILLIN/CLAVULANATE) ONE (20:00)
[2020-07-23] MEDS ORDERED: RX-HYDROCODONE/APAP 5/325 MG #4 TAB PK PO PRN (20:00)
--- NOTE | 2020-07-23 20:00 | ED EENT ---
History of Present Illness General Chief Complaint: Ear Problems Stated Complaint: L EAR PAIN Nursing Triage Note: PT AMB TO TRIAGE WITH COMPLAINT OF LEFT EAR PAIN FOR 1 WEEK. STATES TRIED OTC EAR WAX REMOVAL THAT WORSENED PAIN. STATES ON THURSDAY, PRESSURE IN EAR INCREASED AND IS NOW HAVING A HEADACHE. HAS APPOINTMENT AT CLINIC TOMORROW Source: patient Exam Limitations: no limitations History of Present Illness Date Seen by Provider: Jul 23, 2020 Time Seen by Provider: 19:50 Initial Comments Left earache for 48 hours Timing/Duration: abrupt Severity: moderate Location: ear (L) Associated Symptoms: No cough, No fever, No sore throat Allergies and Home Medications Allergies Coded Allergies: No Known Drug Allergies (Unverified , 07/27/18) Home Medications Albuterol Sulfate 6.7 Gm Hfa.aer.ad, 2 PUFF IH Q4H PRN for SHORTNESS OF BREATH, (Reported) Albuterol Sulfate 1.25 Mg/3 Ml Vial.neb, 1.25 MG INH TID, (Reported) Clonazepam 1 Mg Tab.rapdis, 1 MG PO DAILY PRN for ANXIETY, (Reported) Duloxetine HCl 60 Mg Capsule.dr, 60 MG PO BID, (Reported) Fluticasone/Salmeterol 1 Each Blst.w.dev, 1 EACH IH BID, (Reported) Gabapentin 300 Mg Capsule, 300 MG PO TID, (Reported) TAKES 2 (300MG) CAPSULES Hydrocodone Bit/Acetaminophen 1 Each Tablet, 1 TAB PO Q4-6HR Prescribed by: MADIE CHIANG on 07/29/18825 Ibuprofen 800 Mg Tablet, 800 MG PO Q8H PRN for PAIN-MILD, (Reported) Levofloxacin 500 Mg Tablet, 500 MG PO DAILY Prescribed by: AMBER GANT on 03/25/201740 Lidocaine HCl 15 Ml Solution, 15 ML MM NEEDED Prescribed by: MADIE CHIANG on 07/29/18825 Losartan Potassium 25 Mg Tablet, 25 MG PO BID, (Reported) Melatonin 3 Mg Tablet, 3 MG PO HS, (Reported) Metronidazole 500 Mg Tablet, 500 MG PO TID Prescribed by: AMBER GANT on 03/25/201740 Pantoprazole Sodium 40 Mg Tablet.dr, 40 MG PO DAILY, (Reported) Polyethylene Glycol 3350 17 Gm Powd.pack, 17 GM PO DAILY, (Reported) Sertraline HCl 25 Mg Tablet, 25 MG PO DAILY, (Reported) Patient Home Medication List Home Medication List Reviewed: Yes Review of Systems Review of Systems Constitutional: see HPI Eyes: No Symptoms Reported Ears: See HPI, Pain Nose: no symptoms reported Mouth: no symptoms reported Throat: no symptoms reported Respiratory: no symptoms reported Cardiovascular: no symptoms reported Musculoskeletal: no symptoms reported Past Djusoze-Qfeysc-Settnb Hx Patient Social History Alcohol Use: Denies Use Number of Drinks Today: AA Alcohol Beverage of Choice: Beer Smoking Status: Current Everyday Smoker Type Used: Cigarettes 2nd Hand Smoke Exposure: Yes Recent Infectious Disease Expo: No Recent Hopitalizations: No Immunizations Up To Date Tetanus Booster (TDap): More than 5yrs PED Vaccines UTD: Yes Date of Pneumonia Vaccine: Apr 20, 2011 Seasonal Allergies Seasonal Allergies: Yes Past Medical History Surgeries: Yes (5 surgeries left arm, SMALL BOWEL RESECTION) Abdominal, Gallbladder, Hysterectomy Respiratory: Yes COPD Currently Using CPAP: No Currently Using BIPAP: No Cardiac: Yes High Cholesterol, Hypertension Neurological: Yes Headaches /Migraines 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 Sexually Transmitted Disease: No HIV/AIDS: No Genitourinary: No Gastrointestinal: Yes (hernias) Gastroesophageal Reflux, Diverticulosis Musculoskeletal: Yes (RESTLESS LEG SYNDROME) Arthritis, Chronic Back Pain Endocrine: No HEENT: Yes Loss of Vision: Bilateral Hearing Impairment: Denies Cancer: No Psychosocial: Yes Depression Integumentary: No Blood Disorders: No Adverse Reaction/Blood Tranf: No (N/A) Family Medical History Asthma 19 FATHER G8 BROTHER G8 SISTER Completed stroke 19 FATHER Diabetes mellitus G8 SISTER FH: aneurysm 19 FATHER FH: stomach cancer 19 MOTHER FHx: drug dependence G8 BROTHER G8 SISTER Hypertension 19 FATHER 19 MOTHER Cancer, Stroke, Vascular Disease Physical Exam Vital Signs Vital Signs - First Documented 07/23/20 19:40 Pulse 120 Resp 17 B/P (MAP) 152/93 (112) Pulse Ox 92 O2 Delivery Room Air Height, Weight, BMI Height: 5'2.00" Weight: 186lbs. 0.0oz. 84.676794vl; 31.00 BMI Method:Stated General Appearance: WD/WN, no apparent distress Eyes: bilateral eye normal inspection, bilateral eye PERRL, bilateral eye EOMI Ears: right ear canal normal; left ear other (The left external ear canal is swollen and tender. It is erythematous as well. The auricle is normal. There is no swelling or tenderness over the mastoid process); bilateral ear auricle normal Mouth/Throat: normal mouth inspection, pharynx normal Neck: non-tender, full range of motion Neurologic/Psychiatric: alert, normal mood/affect Skin: normal color, warm/dry Progress/Results/Core Measures Results/Orders My Orders Orders - YURIDIA OVERTON APRN Rx-Hydrocodone/Apap 5-325 Mg (Rx-Vicodin (07/23/20 20:00) Neomy/Poly/Hc Otic Suspension (Cortispor (07/23/20 21:00) Amoxicillin/Clavulanate Tablet (Augmenti (07/24/20 08:00) Vital Signs/I&O 07/23/20 19:40 Pulse 120 Resp 17 B/P (MAP) 152/93 (112) Pulse Ox 92 O2 Delivery Room Air Blood Pressure Mean: 112 Departure Impression Primary Impression: Otitis externa Disposition: HOME, SELF-CARE Condition: Stable Departure-Patient Inst. Decision time for Depature: 20:00 Referrals: [facility] (PCP/Family) Primary Care Physician Patient Instructions: Outer Ear Infection ED Add. Discharge Instructions: Apply the antibiotic eardrops using 4 drops 3 times a day for 7 days. Follow-up with your doctor this week for recheck. All discharge instructions reviewed with patient and/or family. Voiced understanding. Scripts Amoxicillin/Potassium Clav (Augmentin 875-125 Tablet) 1 Each Tablet 1 EACH PO BID, #14 TAB 0 Refills Prov: YURIDIA OVERTON APRN 07/23/20 YURIDIA OVERTON APRN Jul 23, 2020 20:00
[2020-07-23] MEDS ORDERED: RX-NEO/POLYB/HC OTIC (CORTISPORIN) SUSP 10 ML BTL ONE (20:02)
[2020-07-23] MEDS ORDERED: AMOX-358 PO (20:03)
[2020-07-23] MEDS ORDERED: RX-NEO/POLYB/HC OTIC (CORTISPORIN) SUSP 10 ML BTL OT STA (20:08)
[2020-07-23] MEDS ORDERED: NEOMY/POLYM/HC (CORTISPORIN) 10 ML BTL OT SCH (21:00)
[2020-07-24] MEDS ORDERED: AUGMENTIN 875 MG TAB (AMOXICILLIN/CLAVULANATE) PO SCH (08:00)
== END 2020-07-23 20:18 | disposition home or self-care (01) ==
LOC: EDUNIT# 19:35 → ER 19:36
DX: H60.92 Unspecified otitis externa, left ear (principal); I10 Essential (primary) hypertension; F32.9 Major depressive disorder, single episode, unspecified; G43.909 Migraine, unspecified, not intractable, without status migrainosus; K57.90 Diverticulosis of intestine, part unspecified, without perforation or abscess without bleeding; K21.9 Gastro-esophageal reflux disease without esophagitis; J44.9 Chronic obstructive pulmonary disease, unspecified; F17.210 Nicotine dependence, cigarettes, uncomplicated; Z79.51 Long term (current) use of inhaled steroids
CPT/HCPCS: 99283

== ENCOUNTER 2020-08-10 13:27 | Outpatient (CLI) | payer MEDICAID ==
[~2020-08-10] VITALS: Ht 157.5 cm; Wt 74.1 kg
[2020-08-10 13:26] VITALS: BP 130/78
[~2020-08-10 13:27] MED LIST changes: +AMOX-358 PO
[2020-08-10] MEDS ORDERED: diphenhydrAMINE 50 MG/ML INJ (BENADRYL) IV PRN (13:45)
[2020-08-10] MEDS ORDERED: EPINEPHrine INJECTION 1 MG/ML AMP IM PRN (13:45)
[2020-08-10] MEDS ORDERED: CASIRIVIMAB/IMDEVIMAB 2,400 MG/NS 250 ML IV ONE ×3 (13:45)
[2020-08-10] MEDS ORDERED: DEXA6TAB6 PO (17:45)
[2020-08-10] MEDS ORDERED: CEFD300C3 PO (17:46)
== END 2020-08-10 14:35 | disposition home or self-care (01) ==
LOC: INFUSION 13:27
PROVIDERS: ATTEND Nurse Practitioner Family
DX: Z23 Encounter for immunization (principal); U07.1 COVID-19

== ENCOUNTER 2020-08-10 14:46 | Emergency (ER) | payer MEDICAID ==
[~2020-08-10] VITALS: Ht 172 cm; Wt 77.0 kg
--- NOTE | 2020-08-10 15:04 | ED Dyspnea ---
General Stated Complaint: COVID +, COPD Exam Limitations: No Limitations History of Present Illness Date Seen by Provider: Aug 10, 2020 Time Seen by Provider: 14:40 Initial Comments Patient is a 55-year-old female who presents to the emergency room from the infusion center with a chief complaint of shortness of breath and hypoxia. Patient has a history of COPD. She states she started feeling more short of breath with cough and congestion 4 days ago on Thursday. Patient states she subsequently went on Thursday to the [facility] urgent care. She was tested for Covid and was positive. She was scheduled outpatient today for the monoclonal antibody infusion however was found to be hypoxic with oxygen saturations in the low to mid 80s. Patient states that she is only short of breath when she gets up and moves around. She has had a nonproductive cough. No fevers or chills. No chest pain. No nausea vomiting or diarrhea. No urinary complaints. No loss of taste or smell. HAd an ear infection at the beginning of the month and still has some left ear fullness. Patient states that she does not wear oxygen at home related to her COPD. She does use a nebulizer and what sounds like Advair inhaler. Patient does not believe her Advair inhaler has been working very well. She denies any leg swelling or calf cramping. All other review of systems reviewed and negative except as stated. Activities at Onset: None Prior Episodes/Possible Cause: Illness Exposure Modifying Factors: Improves With Albuterol Nebulizer Associated Symptoms: Wheezing Allergies and Home Medications Allergies Coded Allergies: No Known Drug Allergies (Unverified , 07/27/18) Home Medications Albuterol Sulfate 6.7 Gm Hfa.aer.ad, 2 PUFF IH Q4H PRN for SHORTNESS OF BREATH, (Reported) Albuterol Sulfate 1.25 Mg/3 Ml Vial.neb, 1.25 MG INH TID, (Reported) Amoxicillin/Potassium Clav 1 Each Tablet, 1 EACH PO BID Prescribed by: YURIDIA OVERTON on 07/23/202002 Clonazepam 1 Mg Tab.rapdis, 1 MG PO DAILY PRN for ANXIETY, (Reported) Duloxetine HCl 60 Mg Capsule.dr, 60 MG PO BID, (Reported) Fluticasone/Salmeterol 1 Each Blst.w.dev, 1 EACH IH BID, (Reported) Gabapentin 300 Mg Capsule, 300 MG PO TID, (Reported) TAKES 2 (300MG) CAPSULES Hydrocodone Bit/Acetaminophen 1 Each Tablet, 1 TAB PO Q4-6HR Prescribed by: MADIE CHIANG on 07/29/18825 Ibuprofen 800 Mg Tablet, 800 MG PO Q8H PRN for PAIN-MILD, (Reported) Levofloxacin 500 Mg Tablet, 500 MG PO DAILY Prescribed by: AMBER GANT on 03/25/201740 Lidocaine HCl 15 Ml Solution, 15 ML MM NEEDED Prescribed by: MADIE CHIANG on 07/29/18825 Losartan Potassium 25 Mg Tablet, 25 MG PO BID, (Reported) Melatonin 3 Mg Tablet, 3 MG PO HS, (Reported) Metronidazole 500 Mg Tablet, 500 MG PO TID Prescribed by: AMBER GANT on 03/25/201740 Pantoprazole Sodium 40 Mg Tablet.dr, 40 MG PO DAILY, (Reported) Polyethylene Glycol 3350 17 Gm Powd.pack, 17 GM PO DAILY, (Reported) Sertraline HCl 25 Mg Tablet, 25 MG PO DAILY, (Reported) Patient Home Medication List Home Medication List Reviewed: Yes Review of Systems Review of Systems Constitutional: see HPI, chills EENTM: no symptoms reported Respiratory: cough; No phlegm; short of breath Cardiovascular: no symptoms reported Gastrointestinal: no symptoms reported Genitourinary: no symptoms reported Musculoskeletal: no symptoms reported Skin: no symptoms reported All Other Systems Reviewed Negative Unless Noted: Yes Past Ezafjht-Pqexao-Ifnwtr Hx Patient Social History Alcohol Beverage of Choice: Beer Type Used: Cigarettes 2nd Hand Smoke Exposure: Yes Recent Hopitalizations: No Immunizations Up To Date Tetanus Booster (TDap): More than 5yrs PED Vaccines UTD: Yes Date of Pneumonia Vaccine: Apr 20, 2011 Seasonal Allergies Seasonal Allergies: Yes Past Medical History Surgeries: Yes (5 surgeries left arm, SMALL BOWEL RESECTION) Abdominal, Gallbladder, Hysterectomy Respiratory: Yes COPD Currently Using CPAP: No Currently Using BIPAP: No Cardiac: Yes High Cholesterol, Hypertension Neurological: Yes Headaches /Migraines Reproductive Disorders: No [employer] History: Hysterectomy Sexually Transmitted Disease: No HIV/AIDS: No Genitourinary: No Gastrointestinal: Yes (hernias) Gastroesophageal Reflux, Diverticulosis Musculoskeletal: Yes (RESTLESS LEG SYNDROME) Arthritis, Chronic Back Pain Endocrine: No HEENT: Yes Loss of Vision: Bilateral Hearing Impairment: Denies Cancer: No Psychosocial: Yes Depression Integumentary: No Blood Disorders: No Adverse Reaction/Blood Tranf: No (N/A) Family Medical History Asthma 19 FATHER G8 BROTHER G8 SISTER Completed stroke 19 FATHER Diabetes mellitus G8 SISTER FH: aneurysm 19 FATHER FH: stomach cancer 19 MOTHER FHx: drug dependence G8 BROTHER G8 SISTER Hypertension 19 FATHER 19 MOTHER Cancer, Stroke, Vascular Disease Physical Exam Vital Signs Vital Signs - First Documented 08/10/20 08/10/20 15:00 15:21 Temp 37.3 Pulse 91 Resp 17 B/P (MAP) 126/84 (98) Pulse Ox 90 O2 Delivery Room Air O2 Flow Rate 2.00 Capillary Refill : Height, Weight, BMI Height: 5'2.00" Weight: 186lbs. 0.0oz. 84.852726ma; 31.00 BMI Method:Stated General Appearance: No Apparent Distress, WD/WN Neck: Normal Inspection, Supple Respiratory: No Accessory Muscle Use, No Respiratory Distress, Rhonci, Wheezing (Minimal scattered expiratory wheezes bilateral lung faria posteriorly occasional crackles/rhonchi; no increased work of breathing/respiratory distress) Cardiovascular: Regular Rate, Rhythm, No Murmur Gastrointestinal: Non Tender, Soft Extremity: Normal Inspection, Normal Range of Motion, Non Tender, No Calf [place], No Pedal Edema Neurologic/Psychiatric: Alert, Oriented x3, No Motor/Sensory Deficits, Normal Mood/Affect Skin: Normal Color, Warm/Dry Focused Exam Lactate Level 08/10/20 15:20: Lactic Acid Level 1.82 Lactic Acid Level Laboratory Tests Test 08/10/20 15:20 Lactic Acid Level 1.82 MMOL/L (0.50-2.00) Progress/Results/Core Measures Results/Orders Lab Results Laboratory Tests Test 08/10/20 15:20 Range/Units White Blood Count 6.6 4.3-11.0 10^3/uL Red Blood Count 5.11 3.80-5.11 10^6/uL Hemoglobin 12.5 11.5-16.0 g/dL Hematocrit 40 35-52 % Mean Corpuscular Volume 79 L 80-99 fL Mean Corpuscular Hemoglobin 25 25-34 pg Mean Corpuscular Hemoglobin Concent 31 L 32-36 g/dL Red Cell Distribution Width 16.0 H 10.0-14.5 % Platelet Count 244 130-400 10^3/uL Mean Platelet Volume 9.5 9.0-12.2 fL Immature Granulocyte % (Auto) 0 % Neutrophils (%) (Auto) 58 42-75 % Lymphocytes (%) (Auto) 30 12-44 % Monocytes (%) (Auto) 6 0-12 % Eosinophils (%) (Auto) 5 0-10 % Basophils (%) (Auto) 0 0-10 % Neutrophils # (Auto) 3.9 1.8-7.8 X 10^3 Lymphocytes # (Auto) 2.0 1.0-4.0 X 10^3 Monocytes # (Auto) 0.4 0.0-1.0 X 10^3 Eosinophils # (Auto) 0.3 0.0-0.3 10^3/uL Basophils # (Auto) 0.0 0.0-0.1 10^3/uL Immature Granulocyte # (Auto) 0.0 0.0-0.1 10^3/uL Prothrombin Time 13.8 12.2-14.7 SEC INR Comment 1.0 0.8-1.4 Activated Partial Thromboplast Time 34 24-35 SEC D-Dimer 2.59 H 0.00-0.49 UG/ML Sodium Level 136 135-145 MMOL/L Potassium Level 3.5 L 3.6-5.0 MMOL/L Chloride Level 101 98-107 MMOL/L Carbon Dioxide Level 25 21-32 MMOL/L Anion Gap 10 5-14 MMOL/L Blood Urea Nitrogen 8 7-18 MG/DL Creatinine 0.66 0.60-1.30 MG/DL Estimat Glomerular Filtration Rate > 60 BUN/Creatinine Ratio 12 Glucose Level 131 H 70-105 MG/DL Lactic Acid Level 1.82 0.50-2.00 MMOL/L Calcium Level 9.0 8.5-10.1 MG/DL Corrected Calcium 9.2 8.5-10.1 MG/DL Total Bilirubin 0.3 0.1-1.0 MG/DL Aspartate Amino Transf (AST/SGOT) 22 5-34 U/L Alanine Aminotransferase (ALT/SGPT) 23 0-55 U/L Alkaline Phosphatase 78 40-136 U/L C-Reactive Protein High Sensitivity 12.18 H 0.00-0.50 MG/DL Total Protein 7.7 6.4-8.2 GM/DL Albumin 3.8 3.2-4.5 GM/DL Procalcitonin 0.06 <0.10 NG/ML My Orders Orders - FRANDY DELUCA MD Cbc With Automated Diff (08/10/20 14:56) Comprehensive Metabolic Panel (08/10/20 14:56) Blood Culture (08/10/20 14:56) Sputum Culture (08/10/20 14:56) Protime With Inr (08/10/20 14:56) Partial Thromboplastin Time (08/10/20 14:56) Chest 1 View, Ap/Pa Only (08/10/20 14:56) Ed Iv/Invasive Line Start (08/10/20 14:56) Ed Iv/Invasive Line Start (08/10/20 14:56) Vital Signs Adult Sepsis Patie Q15M (08/10/20 14:56) O2 (08/10/20 14:56) Remove Rings In Anticipation O (08/10/20 14:56) Lactic Acid Analyzer (08/10/20 14:56) Procalcitonin (Pct) (08/10/20 14:56) Fibrin Degradation Products (08/10/20 14:56) Albuterol Inhaler (Ventolin Hfa) (08/10/20 18:00) Dexamethasone Injection (Decadron Inje (08/10/20 15:30) Hs C Reactive Protein (08/10/20 15:25) Ct Angio Chest W (08/10/20 16:27) Ibuprofen Tablet (Motrin Tablet) (08/10/20 16:30) Iohexol Injection (Omnipaque 350 Mg/Ml 1 (08/10/20 17:00) Received Contrast (Hold Metformin- Contr (08/10/20 17:00) Ns (Ivpb) (Sodium Chloride 0.9% Ivpb Bag (08/10/20 17:00) Medications Given in ED Current Medications Medications Dose Ordered Sig/Ny Route Start Time Stop Time Status Last Admin Dose Admin Ibuprofen 600 mg ONCE ONCE PO 08/10/20 16:30 08/10/20 16:31 DC 08/10/20 16:36 600 MG Iohexol 100 ml ONCE ONCE IV 08/10/20 17:00 08/10/20 17:01 DC 08/10/20 17:15 77 ML Sodium Chloride 100 ml ONCE ONCE IV 08/10/20 17:00 08/10/20 17:01 DC 08/10/20 17:15 80 ML Vital Signs/I&O 08/10/20 08/10/20 15:00 15:21 Temp 37.3 Pulse 91 Resp 17 B/P (MAP) 126/84 (98) Pulse Ox 90 89 O2 Delivery Room Air Nasal Cannula O2 Flow Rate 2.00 Progress Progress Note #1: Time: 15:03 Progress Note Case discussed with Dr. Esquivel. Patient follows out of the treatment protocol for the monoclonal antibody secondary to her hypoxia documented in the infusion center. Dr. Esquivel would like for her to be seen and evaluated here in the emergency department. Progress Note #2: Time: 17:41 Progress Note Patient seen and examined sepsis work-up obtained patient has a slightly elevated CRP at 12 normal lactic acid. Normal white count. Negative procalcitonin. Patient's CT scan of the chest shows some air bronchograms and consolidative changes in the left upper lobe, cannot rule out pyogenic infiltrate. We will send the patient home on steroids as well as cefdinir. Patient's oxygen has been consistently above 90. She has no increased work of breathing or respiratory distress. Patient is desirous of discharge. I have reviewed all of the findings with her and discussed follow-up. She will call to follow-up within the next couple of weeks at [facility]. Case was discussed with Dr. Esquivel she is in agreement with the plan of care. All questions with the patient have been sought and answered. Patient is stable for discharge. Diagnostic Imaging Diagonstic Imaging: Xray, CT Plain Films/CT/US/NM/MRI: chest Comments [facility]. [place], [place] NAME: BRANDEE GALDAMEZ [facility] REC#: [id number] PT STATUS: REG ER : 1965 PHYSICIAN: FRANDY DELUCA MD ADMIT DATE: 08/10/20/ER Draft Date of Exam:08/10/20 CHEST 1 VIEW, AP/PA ONLY INDICATION: Sepsis, Covid positive. EXAMINATION: AP view of the chest was obtained. COMPARISON: 03/25/2020. FINDINGS: Overall heart size is within normal limits. There is linear density in the left upper lobe in the right lung base compatible with atelectasis. No pneumothorax is identified. There is no evidence of significant pleural fluid. IMPRESSION: Bilateral atelectasis without other evidence of acute abnormality. Dictated on workstation # [id number] Dict: 08/10/20 1517 Trans: 08/10/20 1525 [facility] [id number] Interpreted by: JELENA BRADEN MD Electronically signed by: [facility] [place] [place] NAME: BRANDEE GALDAMEZ [facility] REC#: [id number] PT STATUS: REG ER : 1965 PHYSICIAN: FRANDY DELUCA MD ADMIT DATE: 08/10/20/ER Signed Date of Exam:08/10/20 CT ANGIO CHEST W PROCEDURE: CT angiography of the chest with contrast. TECHNIQUE: Multiple contiguous axial images were obtained through the chest after uneventful bolus administration of intravenous contrast. 3D reconstructed CTA MIP acquisitions were also performed. Auto Exposure Controls were utilized during the CT exam to meet ALARA standards for radiation dose reduction. INDICATION: Elevated D-dimer, Covid patient. There are no intraluminal pulmonary arterial filling defects. There were no findings of pulmonary arterial embolus. There is some airless consolidation of the anteromedial aspect of the left upper lobe, presumed pneumonia, in the lower lobes, greater right. There are ground-glassed infiltrates, nonspecific but compatible with the provided history of Covid. The disease in the left upper lobe atypical for Covid pneumonia and may reflect superimposed bacterial pneumonia. No effusion or pneumothorax. Some coronary artery atherosclerotic vascular calcification. The aorta is patent and nonaneurysmal. There is trace pericardial effusion. No pleural effusion. No evidence for abscess or empyema. There is mild left greater than right lower paratracheal mediastinal adenopathy nodes up to 1.2 cm maximal. There are 1 cm lymph nodes in the left pulmonary michael as well as small nodes adjacent to the lower esophagus. The visualized upper abdomen shows bilateral adrenal nodules, greater right, unchanged from a comparison study of 03/25/2020. The partially visualized liver parenchyma, nonfocal and nonacute. IMPRESSION: 1. Scattered bilateral predominantly basilar ground-glassed infiltrates consistent with the history of Covid. 2. More airless consolidation and bronchograms in the anteromedial left upper lobe, in part atelectasis, however superimposed pyogenic pneumonia could not be excluded. Thoracic lymphadenopathy favored to be reactive. Given the findings in the left upper lobe and the presence of adenopathy, I do feel short-term follow-up is appropriate to confirm reexpansion and resolution of the nodes. Repeat study in 2-3 months suggested. 3. Trace pericardial effusion. No pleural effusion. There is no pneumothorax. 4. Stable bilateral adrenal nodules of uncertain etiology. Dictated by: Dictated on workstation # [id number] Dict: 08/10/208 Trans: 08/10/201727 [facility] [id number] Interpreted by: JELENA KNAPP Electronically signed by: JELENA KNAPP 08/10/208 Departure Communication (Admissions) Time/Spoke to Consulting Phy: 17:[address] Esquivel, recommend outpatient Decadron and cefdinir Impression Primary Impression: COVID-19 Additional Impression: Pneumonia due to COVID-19 virus Disposition: HOME, SELF-CARE Condition: Stable Departure-Patient Inst. Decision time for Depature: 17:43 Referrals: [facility] [place] Primary Care Physician Patient Instructions: COVID-19 (DC) Add. Discharge Instructions: Take the Decadron daily for the next 5 days starting tomorrow. Take the antibiotics, cefdinir 300 mg twice daily for the next 7 days. Use your albuterol nebulizer at home every 4-6 hours. Be sure and finish up your quarantine for a total of 10 days. Please come back to the emergency room if you have any worsening shortness of breath, lightheadedness dizziness, worsening cough or any other emergent concerning symptoms. Follow-up with [facility] as needed. Scripts Cefdinir (Cefdinir) 300 Mg Capsule 300 MG PO BID, #14 CAP 0 Refills Prov: FRANDY DELUCA MD 08/10/20 Dexamethasone (Decadron) 6 Mg Tablet 6 MG PO DAILY, #5 TAB Prov: FRANDY DELUCA MD 08/10/20 FRANDY DELUCA MD Aug 10, 2020 15:04
--- NOTE | 2020-08-10 15:25 | Diagnostic Imaging Report ---
INDICATION: Sepsis, Covid positive. EXAMINATION: AP view of the chest was obtained. COMPARISON: 03/25/2020. FINDINGS: Overall heart size is within normal limits. There is linear density in the left upper lobe in the right lung base compatible with atelectasis. No pneumothorax is identified. There is no evidence of significant pleural fluid. IMPRESSION: Bilateral atelectasis without other evidence of acute abnormality. Dictated by: Dictated on workstation # [id number]
[2020-08-10 15:42] LABS: BASOPHILS % (AUTO) 0 % (0-10); EOSINOPHILS # (AUTO) 0.3 10^3/uL (0.0-0.3); EOSINOPHILS % (AUTO) 5 % (0-10); HEMATOCRIT 40 % (35-52); HEMOGLOBIN 12.5 g/dL (11.5-16.0); LYMPHOCYTES % (AUTO) 30 % (12-44); MEAN CORPUSCULAR HEMOGLOBIN 25 pg (25-34); MEAN CORPUSCULAR HGB CONC 31 g/dL (32-36); MEAN CORPUSCULAR VOLUME 79 fL (80-99); MEAN PLATELET VOLUME 9.5 fL (9.0-12.2); MONOCYTES # (AUTO) 0.4 X 10^3 (0.0-1.0); MONOCYTES % (AUTO) 6 % (0-12); NEUTROPHILS # (AUTO) 3.9 X 10^3 (1.8-7.8); NEUTROPHILS % (AUTO) 58 % (42-75); PLATELET COUNT 244 10^3/uL (130-400); WHITE BLOOD COUNT 6.6 10^3/uL (4.3-11.0)
[2020-08-10 16:01] LABS: FIBRIN DEGRADATION PRODUCTS 2.59 UG/ML (0.00-0.49); PROTHROMBIN TIME PATIENT 13.8 SEC (12.2-14.7)
[2020-08-10 16:02] LABS: ALANINE AMINOTRANSFERASE 23 U/L (0-55); ALBUMIN 3.8 GM/DL (3.2-4.5); ALKALINE PHOSPHATASE 78 U/L (40-136); BILIRUBIN,TOTAL 0.3 MG/DL (0.1-1.0); BUN/CREATININE RATIO 12; CARBON DIOXIDE 25 MMOL/L (21-32); CHLORIDE 101 MMOL/L (98-107); CREATININE SERUM 0.66 MG/DL (0.60-1.30); GFR ESTIMATED > 60; GLUCOSE 131 MG/DL (70-105); POTASSIUM 3.5 MMOL/L (3.6-5.0); SODIUM 136 MMOL/L (135-145); TOTAL PROTEIN 7.7 GM/DL (6.4-8.2)
[2020-08-10] MEDS ORDERED: IBUPROFEN 600 MG (MOTRIN) TAB PO ONE (16:30)
[2020-08-10] MEDS ORDERED: IOHEXOL 350 MG/ML 100 ML (OMNIPAQUE 350) VIAL IV ONE (17:00)
[2020-08-10] MEDS ORDERED: HOLD METFORMIN - RECEIVED CONTRAST 20 ML VIAL IV SCH (17:00)
[2020-08-10] MEDS ORDERED: NS 100 ML (IVPB) BAG IV ONE (17:00)
--- NOTE | 2020-08-10 17:29 | Diagnostic Imaging Report ---
PROCEDURE: CT angiography of the chest with contrast. TECHNIQUE: Multiple contiguous axial images were obtained through the chest after uneventful bolus administration of intravenous contrast. 3D reconstructed CTA MIP acquisitions were also performed. Auto Exposure Controls were utilized during the CT exam to meet ALARA standards for radiation dose reduction. INDICATION: Elevated D-dimer, Covid patient. There are no intraluminal pulmonary arterial filling defects. There were no findings of pulmonary arterial embolus. There is some airless consolidation of the anteromedial aspect of the left upper lobe, presumed pneumonia, in the lower lobes, greater right. There are ground-glassed infiltrates, nonspecific but compatible with the provided history of Covid. The disease in the left upper lobe atypical for Covid pneumonia and may reflect superimposed bacterial pneumonia. No effusion or pneumothorax. Some coronary artery atherosclerotic vascular calcification. The aorta is patent and nonaneurysmal. There is trace pericardial effusion. No pleural effusion. No evidence for abscess or empyema. There is mild left greater than right lower paratracheal mediastinal adenopathy nodes up to 1.2 cm maximal. There are 1 cm lymph nodes in the left pulmonary michael as well as small nodes adjacent to the lower esophagus. The visualized upper abdomen shows bilateral adrenal nodules, greater right, unchanged from a comparison study of 03/25/2020. The partially visualized liver parenchyma, nonfocal and nonacute. IMPRESSION: 1. Scattered bilateral predominantly basilar ground-glassed infiltrates consistent with the history of Covid. 2. More airless consolidation and bronchograms in the anteromedial left upper lobe, in part atelectasis, however superimposed pyogenic pneumonia could not be excluded. Thoracic lymphadenopathy favored to be reactive. Given the findings in the left upper lobe and the presence of adenopathy, I do feel short-term follow-up is appropriate to confirm reexpansion and resolution of the nodes. Repeat study in 2-3 months suggested. 3. Trace pericardial effusion. No pleural effusion. There is no pneumothorax. 4. Stable bilateral adrenal nodules of uncertain etiology. Dictated by: Dictated on workstation # [id number]
[2020-08-10] MEDS ORDERED: DEXA6TAB6 PO (17:45)
[2020-08-10] MEDS ORDERED: CEFD300C3 PO (17:46)
[2020-08-10] MEDS ORDERED: RT-ALBUTEROL INHALER HFA (VENTOLIN HFA) 18 GM IH SCH (18:00)
[2020-08-10 18:13] VITALS: BP 138/91
== END 2020-08-10 18:13 | disposition home or self-care (01) ==
LOC: EDUNIT# 14:46 → ER 14:48
DX: U07.1 COVID-19 (principal); J12.82 Pneumonia due to coronavirus disease 2019; J44.9 Chronic obstructive pulmonary disease, unspecified; I10 Essential (primary) hypertension; K21.9 Gastro-esophageal reflux disease without esophagitis; G89.29 Other chronic pain; M54.9 Dorsalgia, unspecified; F32.9 Major depressive disorder, single episode, unspecified; Z77.22 Contact with and (suspected) exposure to environmental tobacco smoke (acute) (chronic); Z79.891 Long term (current) use of opiate analgesic
CPT/HCPCS: 36415; 71045; 71275; 80053; 83605; 84145; 85025; 85379; 85610; 85730; 86141; 87040

== ENCOUNTER 2020-08-16 13:49 | Emergency (ER) | payer MEDICAID ==
[~2020-08-16] VITALS: Ht 157 cm; Wt 74.0 kg
[~2020-08-16 13:49] MED LIST changes: +CEFD300C3 PO; +DEXA6TAB6 PO
[2020-08-16 14:21] LABS: BASOPHILS # (AUTO) 0.1 10^3/uL (0.0-0.1); BASOPHILS % (AUTO) 0 % (0-10); EOSINOPHILS # (AUTO) 0.5 10^3/uL (0.0-0.3); EOSINOPHILS % (AUTO) 3 % (0-10); HEMATOCRIT 44 % (35-52); HEMOGLOBIN 13.3 g/dL (11.5-16.0); LYMPHOCYTES # (AUTO) 2.7 10^3/uL (1.0-4.0); LYMPHOCYTES % (AUTO) 16 % (12-44); MEAN CORPUSCULAR HEMOGLOBIN 24 pg (25-34); MEAN CORPUSCULAR HGB CONC 30 g/dL (32-36); MEAN CORPUSCULAR VOLUME 79 fL (80-99); MEAN PLATELET VOLUME 9.5 fL (9.0-12.2); MONOCYTES # (AUTO) 0.9 10^3/uL (0.0-1.0); MONOCYTES % (AUTO) 5 % (0-12); NEUTROPHILS # (AUTO) 13.1 10^3/uL (1.8-7.8); NEUTROPHILS % (AUTO) 75 % (42-75); PLATELET COUNT 254 10^3/uL (130-400); WHITE BLOOD COUNT 17.5 10^3/uL (4.3-11.0)
--- NOTE | 2020-08-16 14:34 | ED Respiratory ---
General Chief Complaint: Cough/Cold/Flu Symptoms Stated Complaint: COVID+,SOB Nursing Triage Note: PT ARRIVED PER EMS SAT 85% AT [facility], EMS REPORTS O2 SAT 99% RA. PT TESTED + FOR COVID ON 08/07/20. PT CO OF SOA AND FREQUENT COUGH, FEVER UP TO 101 YESTERDAY. PT HAS SL IN L AC BY EMS. PT STATES ALL I WANNA DO IS SLEEP Source: patient Exam Limitations: no limitations (KORI PINTO MED STUDENT) History of Present Illness Date Seen by Provider: Aug 16, 2020 Time Seen by Provider: 14:15 Initial Comments Patient is a 55-year-old female who presents to the emergency department with a chief complaint of ixwlxdjex-pm-wieczi. Patient has a history of COPD and diabetes. She was previously tested COVID postive on 08/08 at [facility] urgent [facility]. Patient states that she started having idiwonvue-bm-kznodd starting 3 days ago, worsening today. She states she tried 2 albuterol breathing treatments today which have only minimally improved her symptoms. She has a nonproductive cough. She reports some tightness across her chest. She states she had a fever yesterday, Tmax 101. Denies chest pain. She was seen here in the ED on 08/10 for hypoxia and ypefwsaac-wm-rveaxn, and was given courses of Decadron and Cefdinir. She states after this visit, she felt her symptoms improve over the weekend. She also reports that she had stopped taking her metformin since her last visit due to CTA performed. She states that she has not been checking her blood sugar at home. Denies abdominal pain, nausea, vomiting, diarrhea, urinary symptoms. All other review of systems reviewed and negative except as stated above. Timing/Duration: getting worse, other (3 days) Severity: moderate Prior Episodes/Possible Cause: illness exposure, smoke exposure Modifying Factors: Improves With Albuterol Nebulizer (minimal improvement) Associated Symptoms: chest pain/soreness (chest tightness), cough (nonproductive), fever/chills (fever yesterday Tmax 101), shortness of breath (progressive) (KORI PINTO MED STUDENT) Allergies and Home Medications Allergies Coded Allergies: No Known Drug Allergies (Unverified , 07/27/18) Home Medications Albuterol Sulfate 6.7 Gm Hfa.aer.ad, 2 PUFF IH Q4H PRN for SHORTNESS OF BREATH, (Reported) Albuterol Sulfate 1.25 Mg/3 Ml Vial.neb, 1.25 MG INH TID, (Reported) Amoxicillin/Potassium Clav 1 Each Tablet, 1 EACH PO BID Prescribed by: YURIDIA OVERTON on 07/23/202002 Cefdinir 300 Mg Capsule, 300 MG PO BID Prescribed by: FRANDY DELUCA on 08/10/201745 Clonazepam 1 Mg Tab.rapdis, 1 MG PO DAILY PRN for ANXIETY, (Reported) Dexamethasone 6 Mg Tablet, 6 MG PO DAILY Prescribed by: FRANDY DELUCA on 08/10/201744 Duloxetine HCl 60 Mg Capsule.dr, 60 MG PO BID, (Reported) Fluticasone/Salmeterol 1 Each Blst.w.dev, 1 EACH IH BID, (Reported) Gabapentin 300 Mg Capsule, 300 MG PO TID, (Reported) TAKES 2 (300MG) CAPSULES Hydrocodone Bit/Acetaminophen 1 Each Tablet, 1 TAB PO Q4-6HR Prescribed by: MADIE CHIANG on 07/29/18825 Ibuprofen 800 Mg Tablet, 800 MG PO Q8H PRN for PAIN-MILD, (Reported) Levofloxacin 500 Mg Tablet, 500 MG PO DAILY Prescribed by: AMBER GANT on 03/25/201740 Lidocaine HCl 15 Ml Solution, 15 ML MM NEEDED Prescribed by: MADIE CHIANG on 07/29/18825 Losartan Potassium 25 Mg Tablet, 25 MG PO BID, (Reported) Melatonin 3 Mg Tablet, 3 MG PO HS, (Reported) Metronidazole 500 Mg Tablet, 500 MG PO TID Prescribed by: AMBER GANT on 03/25/201740 Pantoprazole Sodium 40 Mg Tablet.dr, 40 MG PO DAILY, (Reported) Polyethylene Glycol 3350 17 Gm Powd.pack, 17 GM PO DAILY, (Reported) Sertraline HCl 25 Mg Tablet, 25 MG PO DAILY, (Reported) Patient Home Medication List Home Medication List Reviewed: Yes (FRANDY DELUCA MD) Review of Systems Review of Systems Constitutional: see HPI, fever EENTM: no symptoms reported Respiratory: see HPI, cough, dyspnea on exertion; No hemoptysis, No phlegm; short of breath Cardiovascular: no symptoms reported Gastrointestinal: no symptoms reported Genitourinary: no symptoms reported : No Musculoskeletal: no symptoms reported Skin: no symptoms reported Psychiatric/Neurological: No Symptoms Reported Hematologic/Lymphatic: No Symptoms Reported Immunological/Allergic: no symptoms reported (KORI PINTO) All Other Systems Reviewed Negative Unless Noted: Yes (KORI PINTO) Past Lzeewhz-Dmaakj-Ubopam Hx Patient Social History Alcohol Use: Rarely Uses Number of Drinks Today: AA Alcohol Beverage of Choice: Beer Smoking Status: Current Everyday Smoker Type Used: Cigarettes 2nd Hand Smoke Exposure: Yes Recent Infectious Disease Expo: No Recent Hopitalizations: No (KORI PINTO) Immunizations Up To Date Tetanus Booster (TDap): More than 5yrs PED Vaccines UTD: Yes Date of Pneumonia Vaccine: Apr 20, 2011 Date of Influenza Vaccine: Jan 19, 2020 (KORI PINTO) Seasonal Allergies Seasonal Allergies: Yes (KORI PINTO) Past Medical History Surgeries: Yes (5 surgeries left arm, SMALL BOWEL RESECTION) Abdominal, Gallbladder, Hysterectomy Respiratory: Yes COPD Currently Using CPAP: No Currently Using BIPAP: No Cardiac: Yes High Cholesterol, Hypertension Neurological: Yes Headaches /Migraines 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 Sexually Transmitted Disease: No HIV/AIDS: No Genitourinary: No Gastrointestinal: Yes (hernias) Gastroesophageal Reflux, Diverticulosis Musculoskeletal: Yes (RESTLESS LEG SYNDROME) Arthritis, Chronic Back Pain Endocrine: No HEENT: Yes Loss of Vision: Bilateral Hearing Impairment: Denies Cancer: No Psychosocial: Yes Depression Integumentary: No Blood Disorders: No Adverse Reaction/Blood Tranf: No (N/A) (KORI PINTO) Family Medical History Asthma 19 FATHER G8 BROTHER G8 SISTER Completed stroke 19 FATHER Diabetes mellitus G8 SISTER FH: aneurysm 19 FATHER FH: stomach cancer 19 MOTHER FHx: drug dependence G8 BROTHER G8 SISTER Hypertension 19 FATHER 19 MOTHER Cancer, Stroke, Vascular Disease (KORI PINTO) Physical Exam Vital Signs - First Documented 08/16/20 08/16/20 15:00 18:59 Pulse Ox 97 O2 Flow Rate 2.00 (FRANDY DELUCA MD) Capillary Refill : Less Than 3 Seconds (KORI PINTO STUDENT) Height: 5'2.00" Weight: 186lbs. 0.0oz. 84.209950fr; 30.00 BMI Method:Stated General Appearance: WD/WN, moderate distress, other (anxious, tearful) Respiratory: lungs clear, respiratory distress (moderate respiratory distress), other (coarse breath sounds throughout bilaterally) Cardiovascular: no gallop, no murmur, tachycardia (tachycardic 110s-120s) Gastrointestinal: non tender, soft, no organomegaly, no pulsatile mass Extremities: non-tender, normal inspection, no pedal edema, normal capillary refill Neurologic/Psychiatric: no motor/sensory deficits, alert, oriented x 3, other Skin: normal color, warm/dry (KORI PINTO MED STUDENT) Focused Exam Lactate Level 08/16/20 14:00: Lactic Acid Level 3.96*H 08/16/20 16:10: Lactic Acid Level 2.27*H (FRANDY DELUCA MD) Lactic Acid Level Laboratory Tests Test 08/16/20 14:00 08/16/20 16:10 Lactic Acid Level 3.96 MMOL/L (0.50-2.00) *H 2.27 MMOL/L (0.50-2.00) *H (FRANDY DELUCA MD) Progress/Results/Core Measures Suspected Sepsis Recent Fever Within 48 Hours: No Infection Criteria Present: None New/Unexplained Altered Menta: No Sepsis Screen: No Definite Risk SIRS Temperature: Pulse: 112 Respiratory Rate: 30 Laboratory Tests 08/16/20 14:00: White Blood Count 17.5H Blood Pressure 119 /77 Mean: 91 08/16/20 14:00: Lactic Acid Level 3.96*H 08/16/20 16:10: Lactic Acid Level 2.27*H Laboratory Tests 08/16/20 14:00: Creatinine 0.92, INR Comment 1.2, Platelet Count 254, Total Bilirubin 0.5 (KORI PINTO MED STUDENT) Results/Orders Lab Results Laboratory Tests Test 08/16/20 14:00 08/16/20 16:10 Range/Units White Blood Count 17.5 H 4.3-11.0 10^3/uL Red Blood Count 5.52 H 3.80-5.11 10^6/uL Hemoglobin 13.3 11.5-16.0 g/dL Hematocrit 44 35-52 % Mean Corpuscular Volume 79 L 80-99 fL Mean Corpuscular Hemoglobin 24 L 25-34 pg Mean Corpuscular Hemoglobin Concent 30 L 32-36 g/dL Red Cell Distribution Width 16.5 H 10.0-14.5 % Platelet Count 254 130-400 10^3/uL Mean Platelet Volume 9.5 9.0-12.2 fL Immature Granulocyte % (Auto) 2 % Neutrophils (%) (Auto) 75 42-75 % Lymphocytes (%) (Auto) 16 12-44 % Monocytes (%) (Auto) 5 0-12 % Eosinophils (%) (Auto) 3 0-10 % Basophils (%) (Auto) 0 0-10 % Neutrophils # (Auto) 13.1 H 1.8-7.8 10^3/uL Lymphocytes # (Auto) 2.7 1.0-4.0 10^3/uL Monocytes # (Auto) 0.9 0.0-1.0 10^3/uL Eosinophils # (Auto) 0.5 H 0.0-0.3 10^3/uL Basophils # (Auto) 0.1 0.0-0.1 10^3/uL Immature Granulocyte # (Auto) 0.3 H 0.0-0.1 10^3/uL Neutrophils % (Manual) 79 % Lymphocytes % (Manual) 15 % Monocytes % (Manual) 1 % Eosinophils % (Manual) 4 % Basophils % (Manual) 0 % Band Neutrophils 1 % Blood Morphology Comment NORMAL Prothrombin Time 15.5 H 12.2-14.7 SEC INR Comment 1.2 0.8-1.4 Activated Partial Thromboplast Time 35 24-35 SEC D-Dimer 18.42 H 0.00-0.49 UG/ML Sodium Level 136 135-145 MMOL/L Potassium Level 3.0 L 3.6-5.0 MMOL/L Chloride Level 101 98-107 MMOL/L Carbon Dioxide Level 24 21-32 MMOL/L Anion Gap 11 5-14 MMOL/L Blood Urea Nitrogen 12 7-18 MG/DL Creatinine 0.92 0.60-1.30 MG/DL Estimat Glomerular Filtration Rate > 60 BUN/Creatinine Ratio 13 Glucose Level 180 H 70-105 MG/DL Lactic Acid Level 3.96 *H 2.27 *H 0.50-2.00 MMOL/L Calcium Level 8.8 8.5-10.1 MG/DL Corrected Calcium 9.0 8.5-10.1 MG/DL Total Bilirubin 0.5 0.1-1.0 MG/DL Aspartate Amino Transf (AST/SGOT) 9 5-34 U/L Alanine Aminotransferase (ALT/SGPT) 13 0-55 U/L Alkaline Phosphatase 94 40-136 U/L Total Protein 7.5 6.4-8.2 GM/DL Albumin 3.7 3.2-4.5 GM/DL Procalcitonin 0.10 H <0.10 NG/ML (FRANDY DELUCA MD) Micro Results Microbiology 08/16/20 Blood Culture - Preliminary, Resulted No growth 08/16/20 Blood Culture - Preliminary, Resulted No growth (FRANDY DELUCA MD) My Orders Orders - FRANDY DELUCA MD Cbc With Automated Diff (08/16/20 14:07) Comprehensive Metabolic Panel (08/16/20 14:07) Blood Culture (08/16/20 14:07) Protime With Inr (08/16/20 14:07) Partial Thromboplastin Time (08/16/20 14:07) Chest 1 View, Ap/Pa Only (08/16/20 14:07) Ed Iv/Invasive Line Start (08/16/20 14:07) Ed Iv/Invasive Line Start (08/16/20 14:07) Vital Signs Adult Sepsis Patie Q15M (08/16/20 14:07) O2 (08/16/20 14:07) Remove Rings In Anticipation O (08/16/20 14:07) Lactic Acid Analyzer (08/16/20 14:07) Accucheck Stat ONCE (08/16/20 14:16) Procalcitonin (Pct) (08/16/20 14:16) Manual Differential (08/16/20 14:00) Fibrin Degradation Products (08/16/20 14:27) Ns Iv 1000 Ml (Sodium Chloride 0.9%) (08/16/20 15:00) Ct Angio Chest W (08/16/20 15:02) Lorazepam Injection (Ativan Injection) (08/16/20 15:30) Heparin Drip 86650 Unit/500ml (Heparin (08/16/20 15:45) Heparin (Bolus Per Protocol) (Heparin (B (08/16/20 15:45) Iohexol Injection (Omnipaque 350 Mg/Ml 1 (08/16/20 16:00) Received Contrast (Hold Metformin- Contr (08/16/20 16:00) Ns (Ivpb) (Sodium Chloride 0.9% Ivpb Bag (08/16/20 16:00) Fentanyl Inj (Sublimaze Injection) (08/16/20 18:00) (FRANDY DELUCA MD) Medications Given in ED (FRANDY DELUCA MD) Vital Signs/I&O 08/16/20 08/16/20 08/16/20 08/16/20 13:52 13:52 15:00 18:59 Temp 37.1 Pulse 112 110 Resp 30 30 B/P (MAP) 119/77 (91) 125/68 (91) Pulse Ox 97 O2 Delivery Room Air Room Air Nasal Cannula Nasal Cannula O2 Flow Rate 2.00 2.00 (FRANDY DELUCA MD) Vital Signs/I&O Capillary Refill : Less Than 3 Seconds (KORI PINTO MED STUDENT) Blood Pressure Mean: 91 Progress Note : Time: 16:05 Progress Note 55-year-old female who presents to the emergency room with worsening shortness of breath over the last 3 days. Has been Covid positive for about the last 10 days. Was seen here in the emergency department last Thursday with some relative hypoxia. Was able to maintain her sats above 90 and therefore was sent home on cefdinir and Decadron. Patient states that she been doing fairly well until this past Thursday, 3 days ago when she started having increasing shortness of breath. She has had a dry nonproductive cough. Evaluation today includes a physical exam, CBC, chemistry, lactic acid, blood cultures, procalcitonin and D-dimer. The patient's D-dimer was noted to be extraordinarily high at 18. She does have a leukocytosis of 17 but again has been on Decadron. Patient's chest x-ray shows diminishing aeration in the lower lung. CTA was repeated and she has a large pulmonary embolus in the left main. Patient continues to oxygenate well at 9394% on room air. She is placed on a little supplemental oxygen. She is noted to periodically have desats down into the 85 range. She still maintains her tachypnea at about 28 breaths/min. She is still tachycardic at about 105 bpm. Case is discussed with Dr. Ahmadi who is on for [facility] today. Patient will be heparinized. Given Zofran for nausea. Placed on regular insulin sliding scale and admitted to the ICU. We will consult with [facility] regarding further care. 1652 Update to the reads on the CT scan of the chest, PE protocol. Radiologist read the CT as having a left suprahilar mass with erosion of this mass into the left pulmonary artery thereby causing her clot. He recognizes that there are infarcts also in the left lung. He also mentions scattered thrombi in the right lung as well. Case is discussed at this time with [facility]. Will transfer for further evaluation and management. I have updated the patient as to these fin dings. She verbalizes understanding and she is agreeable with transfer. She is quite anxious and tearful still. (FRANDY DELUCA MD) Departure Impression Primary Impression: Pneumonia due to COVID-19 virus Additional Impressions: Pulmonary embolism Qualified Codes: I26.99 - Other pulmonary embolism without acute cor pulmonale Sepsis Qualified Codes: A41.9 - Sepsis, unspecified organism; R65.20 - Severe sepsis without septic shock Disposition: XFER SHT-TRM HOSP Condition: Stable Transfer Transfer Reason: Exceeds level of care Time Spoke to Accepting Phy: 16:53 Transfer Time: 19:00 Transfer Facility: [facility] Method of Transfer: EMS (FRANDY DELUCA MD) Departure-Patient Inst. Referrals: [facility] (PCP/Family) Primary Care Physician I have seen and evaluated this patient and I have performed a history and physical exam as well as the medical decision making regarding this patient. I have reviewed and agree with the medical student's documentation (FRNADY DELUCA MD) KORI PINTO MED STUDENT Aug 16, 2020 14:34 FRANDY DELUCA MD Aug 16, 2020 16:02
[2020-08-16 14:36] LABS: INR 1.2 (0.8-1.4); PROTHROMBIN TIME PATIENT 15.5 SEC (12.2-14.7)
[2020-08-16 14:38] LABS: BAND NEUTROPHILS 1 %; BASOPHILS % (MANUAL) 0 %; EOSINOPHILS % (MANUAL) 4 %; LYMPHOCYTES % (MANUAL) 15 %; MONOCYTES % (MANUAL) 1 %; NEUTROPHILS % (MANUAL) 79 %; RBC MORPH NORMAL
--- NOTE | 2020-08-16 14:43 | Diagnostic Imaging Report ---
Indication: Increased shortness of air. COVID positive patient. COMPARISON: 08/10/2020 FINDINGS: Single frontal radiograph view of the chest was obtained and demonstrates mixed interval change. There is relative improved aeration of the medial margins of the left upper lobe. There are however new interstitial infiltrates throughout the remainder of the left chest. Right lung is relatively clear. There is no large effusion or pneumothorax. Cardiac silhouette and pulmonary vasculature are within normal limits. IMPRESSION:. Mixed interval change in regards to aeration of the left lung as described above. Report was faxed to [facility] nurse Infection Control by stephy at 2:54p.m. Dictated by: Dictated on workstation # [id number]
[2020-08-16 14:45] LABS: ALANINE AMINOTRANSFERASE 13 U/L (0-55); ALBUMIN 3.7 GM/DL (3.2-4.5); ALKALINE PHOSPHATASE 94 U/L (40-136); BILIRUBIN,TOTAL 0.5 MG/DL (0.1-1.0); BUN/CREATININE RATIO 13; CALCIUM 8.8 MG/DL (8.5-10.1); CARBON DIOXIDE 24 MMOL/L (21-32); CHLORIDE 101 MMOL/L (98-107); CREATININE SERUM 0.92 MG/DL (0.60-1.30); GFR ESTIMATED > 60; GLUCOSE 180 MG/DL (70-105); SODIUM 136 MMOL/L (135-145); TOTAL PROTEIN 7.5 GM/DL (6.4-8.2)
[2020-08-16] MEDS: NS IV 1000 ML 1,000 ML IV SCH ×2 (15:20→17:50)
[2020-08-16] MEDS ORDERED: LORazepam INJ 2 MG/ML (ATIVAN) VIAL IVP PRN (15:30)
[2020-08-16] MEDS ORDERED: HEParin 1000 UNIT/ML (10ML VIAL) FOR BOLUS IV ONE (15:45)
[2020-08-16] MEDS ORDERED: HEParin DRIP 25000 UNIT/500ML 500 ML IV ONE (15:45)
[2020-08-16] MEDS ORDERED: IOHEXOL 350 MG/ML 100 ML (OMNIPAQUE 350) VIAL IV ONE (16:00)
[2020-08-16] MEDS ORDERED: NS 100 ML (IVPB) BAG IV ONE (16:00)
[2020-08-16] MEDS ORDERED: HOLD METFORMIN - RECEIVED CONTRAST 20 ML VIAL IV SCH (16:00)
--- NOTE | 2020-08-16 16:36 | Diagnostic Imaging Report ---
PROCEDURE: CT angiography of the chest with contrast. TECHNIQUE: Multiple contiguous axial images were obtained through the chest after uneventful bolus administration of intravenous contrast. 3D reconstructed CTA MIP acquisitions were also performed. Auto Exposure Controls were utilized during the CT exam to meet ALARA standards for radiation dose reduction. INDICATION: Shortness of air and frequent cough, fever, low oxygen saturation. Positive for Covid. CORRELATION STUDY: CT angiogram chest 08/10/2020 FINDINGS: There has been development of nearly occlusive thrombus involving the peripheral left main pulmonary artery. Extensive thrombus extends to the upper and lower lobe branches as well. Only a small amount of contrast opacification is present in a few small peripheral vessels. Additionally, there are smaller filling defects within the peripheral right lower lobe pulmonary artery branches, to a lesser degree the right upper lobe branches. There is what appears to be likely soft tissue mass in the left suprahilar region which blurs inseparably from adjacent consolidated lung as well as the mass and/or thrombus within the left main pulmonary artery. There is occlusion of the upper lobe bronchus in this area. Additionally, there is the presence of additional increasing left infrahilar lymphadenopathy along with right subcarinal and, to a lesser degree, right hilar lymphadenopathy present. Bilateral areas of a ground-glass opacification within both lung faria are again demonstrated, appears slightly overall progressed from prior. Exception is previously noted consolidation in the medial aspect of the left upper lobe has diminished. There is new more focal consolidation in the posterior aspect of the left upper lobe along the fissure plane. Areas of consolidation are slightly greater involving the left lung compared to the right lung suggesting underlying developing pulmonary infarct. 2.8 x 1.5 cm indeterminate right adrenal gland mass. Smaller nodularity in the left adrenal gland. 15 mm exophytic mass superior pole of the right kidney incompletely characterized but favors probable cyst. IMPRESSION: 1. There has been development of rather extensive thrombus involving the peripheral left main pulmonary artery with additional thrombus extending into the upper and lower lobe pulmonary artery branches. This blurs inseparably with what appears to to likely be a left suprahilar mass as well as consolidation of the left lung. Findings do raise concern for perhaps erosion of the mass into the left main pulmonary artery with development of thrombus. 2. Significantly less severe but additional smaller more peripheral emboli within the right lung. 3. Left hilar, and to a lesser degree, mediastinal subcarinal lymphadenopathy. Worrisome for potential neoplasm. 4. Bilateral pulmonary opacities. May be a combination of underlying Covid pneumonia but given asymmetry in the left, is also concerning for left-sided pulmonary infarct. CRITICAL FINDINGS Telephone call has been made to the emergency department at the time of this dictation, 4:18 PM. Dictated by: Dictated on workstation # [id number]
[2020-08-16] MEDS ORDERED: fentaNYL INJ 100 MCG/2 ML AMP IVP ONE (18:00)
[2020-08-16 18:59] VITALS: BP 125/68
== END 2020-08-16 18:59 | disposition short-term general hospital (02) ==
LOC: EDUNIT# 13:49 → ER 13:50
DX: U07.1 COVID-19 (principal); J12.82 Pneumonia due to coronavirus disease 2019; I26.99 Other pulmonary embolism without acute cor pulmonale; A41.9 Sepsis, unspecified organism; J44.9 Chronic obstructive pulmonary disease, unspecified; I10 Essential (primary) hypertension; F32.9 Major depressive disorder, single episode, unspecified; K21.9 Gastro-esophageal reflux disease without esophagitis; G89.29 Other chronic pain; M54.9 Dorsalgia, unspecified; F17.210 Nicotine dependence, cigarettes, uncomplicated; Z79.891 Long term (current) use of opiate analgesic; Z79.899 Other long term (current) drug therapy
CPT/HCPCS: 36415; 71045; 71275; 80053; 83605; 84145; 85007; 85027; 85379; 85610; 85730; 87040

== ENCOUNTER 2020-09-02 10:46 | Emergency (ER) | payer MEDICAID | END 2020-09-02 11:10 | disposition left against medical advice (07) | LOC: EDUNIT# 10:46 → ER 11:00 | DX: J00 Acute nasopharyngitis [common cold] (principal); M79.605 Pain in left leg ==

== ENCOUNTER 2020-09-14 14:23 | Outpatient (RCR) | payer MEDICAID ==
[2020-09-14 14:36] LABS: BASOPHILS # (AUTO) 0.1 10^3/uL (0.0-0.1); BASOPHILS % (AUTO) 1 % (0-10); EOSINOPHILS # (AUTO) 1.6 10^3/uL (0.0-0.3); EOSINOPHILS % (AUTO) 14 % (0-10); HEMATOCRIT 38 % (35-52); HEMOGLOBIN 11.8 g/dL (11.5-16.0); LYMPHOCYTES # (AUTO) 2.2 10^3/uL (1.0-4.0); LYMPHOCYTES % (AUTO) 20 % (12-44); MEAN CORPUSCULAR HEMOGLOBIN 25 pg (25-34); MEAN CORPUSCULAR HGB CONC 31 g/dL (32-36); MEAN CORPUSCULAR VOLUME 80 fL (80-99); MEAN PLATELET VOLUME 10.7 fL (9.0-12.2); MONOCYTES # (AUTO) 0.5 10^3/uL (0.0-1.0); MONOCYTES % (AUTO) 4 % (0-12); NEUTROPHILS # (AUTO) 6.9 10^3/uL (1.8-7.8); NEUTROPHILS % (AUTO) 61 % (42-75); PLATELET COUNT 192 10^3/uL (130-400); WHITE BLOOD COUNT 11.3 10^3/uL (4.3-11.0)
[2020-09-14 15:03] LABS: ALANINE AMINOTRANSFERASE 15 U/L (0-55); ALBUMIN 3.6 GM/DL (3.2-4.5); ALKALINE PHOSPHATASE 96 U/L (40-136); BILIRUBIN,TOTAL 0.3 MG/DL (0.1-1.0); BUN/CREATININE RATIO 9; CALCIUM 9.2 MG/DL (8.5-10.1); CARBON DIOXIDE 29 MMOL/L (21-32); CHLORIDE 100 MMOL/L (98-107); GFR ESTIMATED > 60; GLUCOSE 285 MG/DL (70-105); POTASSIUM 3.6 MMOL/L (3.6-5.0); SODIUM 136 MMOL/L (135-145)
[2020-09-30] MEDS ORDERED: ENOX80DI7 SQ (14:02)
[2020-09-30] MEDS ORDERED: AMIT75TA2 PO (14:02)
[2020-09-30] MEDS ORDERED: METF-865 PO (14:02)
[2020-09-30] MEDS ORDERED: PRD20T PO (14:02)
[2020-09-30] MEDS ORDERED: HYDR-700 PO (14:02)
[2020-09-30] MEDS ORDERED: EMPA10TA PO (14:02)
[2020-10-01] MEDS ORDERED: ALBU2.5V4 NEB (11:43)
[2020-10-01] MEDS ORDERED: GABA300C PO ×2 (11:43)
[2020-10-01] MEDS ORDERED: ONDA8TAB15 PO (11:43)
[2020-10-01] MEDS ORDERED: MELA5TAB14 PO (11:43)
[2020-10-01] MEDS ORDERED: METO50TA7 PO (14:00)
[2020-10-04] MEDS ORDERED: INSU100V3 SC (11:17)
[2020-10-04] MEDS ORDERED: CLON1TAB13 PO (11:17)
[2020-10-04] MEDS ORDERED: LOSA25TA41 PO (11:17)
[2020-10-04] MEDS ORDERED: UMEC62.5 IH (11:17)
[2020-10-04] MEDS ORDERED: [UNRECOGNIZED DRUG - CODE] IV (11:17)
[2020-10-04] MEDS ORDERED: METH40VI2 IV (11:17)
[2020-10-04] MEDS ORDERED: ACHD5005 PO (11:17)
== END 2020-12-13 | disposition home or self-care (01) ==
LOC: ONC 14:23
PROVIDERS: ATTEND Internal Medicine Hematology & Oncology
DX: U07.1 COVID-19 (principal); J96.01 Acute respiratory failure with hypoxia; I26.99 Other pulmonary embolism without acute cor pulmonale; I82.409 Acute embolism and thrombosis of unspecified deep veins of unspecified lower extremity; J44.9 Chronic obstructive pulmonary disease, unspecified; E27.9 Disorder of adrenal gland, unspecified; R91.8 Other nonspecific abnormal finding of lung field; F17.210 Nicotine dependence, cigarettes, uncomplicated; Z79.01 Long term (current) use of anticoagulants; Z86.718 Personal history of other venous thrombosis and embolism; Z79.899 Other long term (current) drug therapy
CPT/HCPCS: 80053; 83615; 85025; G0463; 99214

== ENCOUNTER 2020-09-30 09:30 | Inpatient (IN) | payer MEDICAID ==
[~2020-09-30] VITALS: Ht 157 cm; Wt 80.2 kg
[2020-09-30] MEDS ORDERED: NS IV 1000 ML 2,000 ML ONE (09:41)
[2020-09-30] MEDS ORDERED: NS IV 1000 ML 1,000 ML IV SCH (09:45)
[2020-09-30] MEDS ORDERED: ONDANSETRON 4 MG/2 ML (SDV) Z0FRAN IVP ONE (09:45)
[2020-09-30] MEDS ORDERED: NS IV 1000 ML 1,000 ML IV ONE (09:45)
--- NOTE | 2020-09-30 09:48 | ED General ---
General Chief Complaint: Glucose Problems Stated Complaint: DIABETIC,WEAKNESS,DIZZINESS,DIFFICULTY SEEING Source of Information: Patient Exam Limitations: No Limitations History of Present Illness Date Seen by Provider: Sep 30, 2020 Time Seen by Provider: 09:33 Initial Comments The patient presents to the ER by private conveyance with her significant other and chief complaint of high blood sugars running around 190-200 this morning, urinary frequency, malaise, nausea and weakness. She has had no fevers chills, new cough shortness of air. She smokes about a pack of cigarettes a day. She is known to a provider at [facility] [place]. She says she was diagnosed with diabetes and put on insulin about a year ago. The patient states Dr. Benavidez her primary care provider put her on prednisone 3 days ago for a COPD exacerbation. The patient reports she had COVID-19 4 weeks ago. Allergies and Home Medications Allergies Coded Allergies: No Known Drug Allergies (Unverified , 07/27/18) Home Medications Albuterol Sulfate 6.7 Gm Hfa.aer.ad, 2 PUFF IH Q4H PRN for SHORTNESS OF BREATH, (Reported) Albuterol Sulfate 1.25 Mg/3 Ml Vial.neb, 1.25 MG INH TID, (Reported) Amoxicillin/Potassium Clav 1 Each Tablet, 1 EACH PO BID Prescribed by: YURIDIA OVERTON on 07/23/202002 Cefdinir 300 Mg Capsule, 300 MG PO BID Prescribed by: FRANDY DELUCA on 08/10/201745 Clonazepam 1 Mg Tab.rapdis, 1 MG PO DAILY PRN for ANXIETY, (Reported) Dexamethasone 6 Mg Tablet, 6 MG PO DAILY Prescribed by: FRANDY DELUCA on 08/10/201744 Duloxetine HCl 60 Mg Capsule.dr, 60 MG PO BID, (Reported) Fluticasone/Salmeterol 1 Each Blst.w.dev, 1 EACH IH BID, (Reported) Gabapentin 300 Mg Capsule, 300 MG PO TID, (Reported) TAKES 2 (300MG) CAPSULES Hydrocodone Bit/Acetaminophen 1 Each Tablet, 1 TAB PO Q4-6HR Prescribed by: MADIE CHIANG on 07/29/18 0826 Ibuprofen 800 Mg Tablet, 800 MG PO Q8H PRN for PAIN-MILD, (Reported) Levofloxacin 500 Mg Tablet, 500 MG PO DAILY Prescribed by: AMBER GANT on 03/25/201740 Lidocaine HCl 15 Ml Solution, 15 ML MM NEEDED Prescribed by: MADIE CHIANG on 07/29/18 08 Losartan Potassium 25 Mg Tablet, 25 MG PO BID, (Reported) Melatonin 3 Mg Tablet, 3 MG PO HS, (Reported) Metronidazole 500 Mg Tablet, 500 MG PO TID Prescribed by: AMBER GANT on 03/25/201740 Pantoprazole Sodium 40 Mg Tablet.dr, 40 MG PO DAILY, (Reported) Polyethylene Glycol 3350 17 Gm Powd.pack, 17 GM PO DAILY, (Reported) Sertraline HCl 25 Mg Tablet, 25 MG PO DAILY, (Reported) Patient Home Medication List Home Medication List Reviewed: Yes Review of Systems Review of Systems Constitutional: see HPI; No chills, No fever; malaise EENTM: No ear discharge, No ear pain Respiratory: cough; No phlegm; short of breath (Chronic) Cardiovascular: No chest pain, No palpitations Gastrointestinal: No abdominal pain; nausea; No vomiting Genitourinary: No discharge, No dysuria; frequency; No hematuria Musculoskeletal: No back pain, No joint pain All Other Systems Reviewed Negative Unless Noted: Yes Past Tiqmmbt-Zcwkps-Nwvctd Hx Patient Social History Alcohol Use: Regular Use Alcohol Beverage of Choice: Beer Drug of Choice: Denies Smoking Status: Current Everyday Smoker Type Used: Cigarettes 2nd Hand Smoke Exposure: Yes Recent Hopitalizations: No Immunizations Up To Date Tetanus Booster (TDap): More than 5yrs PED Vaccines UTD: Yes Date of Pneumonia Vaccine: Apr 20, 2011 Date of Influenza Vaccine: Jan 19, 2020 Seasonal Allergies Seasonal Allergies: Yes Past Medical History Surgeries: Yes (5 surgeries left arm, SMALL BOWEL RESECTION) Abdominal, Gallbladder, Hysterectomy Respiratory: Yes COPD Currently Using CPAP: No Currently Using BIPAP: No Cardiac: Yes High Cholesterol, Hypertension Neurological: Yes Headaches /Migraines Reproductive Disorders: No 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 Sexually Transmitted Disease: No HIV/AIDS: No Genitourinary: No Gastrointestinal: Yes (hernias) Gastroesophageal Reflux, Diverticulosis Musculoskeletal: Yes (RESTLESS LEG SYNDROME) Arthritis, Chronic Back Pain Endocrine: No HEENT: Yes Loss of Vision: Bilateral Hearing Impairment: Denies Cancer: No Psychosocial: Yes Depression Integumentary: No Blood Disorders: No Adverse Reaction/Blood Tranf: No (N/A) Family Medical History Asthma 19 FATHER G8 BROTHER G8 SISTER Completed stroke 19 FATHER Diabetes mellitus G8 SISTER FH: aneurysm 19 FATHER FH: stomach cancer 19 MOTHER FHx: drug dependence G8 BROTHER G8 SISTER Hypertension 19 FATHER 19 MOTHER Cancer, Stroke, Vascular Disease Physical Exam Vital Signs Vital Signs - First Documented 09/30/20 09:40 Temp 35.4 Pulse 122 Resp 20 B/P (MAP) 123/83 (96) Pulse Ox 95 O2 Delivery Room Air Capillary Refill : Height, Weight, BMI Height: 5'2.00" Weight: 186lbs. 0.0oz. 84.705094zk; 30.00 BMI Method:Stated General Appearance: Chronically ill, Moderate Distress Eyes: Bilateral Eye Normal Inspection, Bilateral Eye PERRL, Bilateral Eye EOMI HEENT: PERRL/EOMI; No Moist Mucous Membranes (Oral mucosa is quite dry) Neck: Full Range of Motion, Normal Inspection Respiratory: No Accessory Muscle Use, Crackles (Bilateral upper respiratory sounds), Decreased Breath Sounds, Respiratory Distress (Mild but satting 94% on room air with 22 breaths/min) Cardiovascular: Regular Rate, Rhythm, Normal Peripheral Pulses, Tachycardia (120-130) Gastrointestinal: Normal Bowel Sounds, Non Tender, Soft Extremity: Normal Capillary Refill, Normal Inspection, Non Tender, No Pedal Edema Neurologic/Psychiatric: Alert, Oriented x3, Other (Anxious affect) Skin: Normal Color, Warm/Dry Focused Exam Sepsis Stage: Sepsis Possible Source: Pulmonary Lactate Level 09/30/20 10:35: Lactic Acid Level 1.71 Time of Focused Exam: 11:53 Respiratory: No Respiratory Distress (Mild, 95% on 2 L.), Crackles (Left side), Decreased Breath Sounds Cardiovascular: Regular Rate, Rhythm, Normal Peripheral Pulses Capillary Refill: Less Than 3 Seconds Peripheral Pulses: 2+ Dorsalis Pedis (R), 2+ Left Dors-Pedis (L) Skin: normal color, warm/dry Lactic Acid Level Laboratory Tests Test 09/30/20 10:35 Lactic Acid Level 1.71 MMOL/L (0.50-2.00) Within 3hrs of presentation: Admin fluids, Admin ABX, Blood cultures prior to ABX's, Focus exam, Lactate level Progress/Results/Core Measures Suspected Sepsis SIRS Temperature: Pulse: Respiratory Rate: Laboratory Tests 09/30/20 09:40: White Blood Count 18.4H Blood Pressure / Mean: 09/30/20 10:35: Lactic Acid Level 1.71 Laboratory Tests 09/30/20 09:40: Creatinine 1.15, Platelet Count 64L, Total Bilirubin 0.8 Results/Orders Lab Results Laboratory Tests Test 09/30/20 09:40 09/30/20 10:25 09/30/20 10:35 09/30/20 12:01 Range/Units White Blood Count 18.4 H 4.3-11.0 10^3/uL Red Blood Count 5.52 H 3.80-5.11 10^6/uL Hemoglobin 13.2 11.5-16.0 g/dL Hematocrit 43 35-52 % Mean Corpuscular Volume 79 L 80-99 fL Mean Corpuscular Hemoglobin 24 L 25-34 pg Mean Corpuscular Hemoglobin Concent 30 L 32-36 g/dL Red Cell Distribution Width 20.0 H 10.0-14.5 % Platelet Count 64 L 130-400 10^3/uL Mean Platelet Volume 9.0-12.2 fL Immature Granulocyte % (Auto) 2 % Neutrophils (%) (Auto) 67 42-75 % Lymphocytes (%) (Auto) 12 12-44 % Monocytes (%) (Auto) 4 0-12 % Eosinophils (%) (Auto) 16 H 0-10 % Basophils (%) (Auto) 1 0-10 % Neutrophils # (Auto) 12.3 H 1.8-7.8 10^3/uL Lymphocytes # (Auto) 2.1 1.0-4.0 10^3/uL Monocytes # (Auto) 0.7 0.0-1.0 10^3/uL Eosinophils # (Auto) 2.9 H 0.0-0.3 10^3/uL Basophils # (Auto) 0.1 0.0-0.1 10^3/uL Immature Granulocyte # (Auto) 0.4 H 0.0-0.1 10^3/uL Neutrophils % (Manual) 64 % Lymphocytes % (Manual) 11 % Monocytes % (Manual) 4 % Eosinophils % (Manual) 19 % Band Neutrophils 2 % Hypersegmented Neutrophils SLIGHT Percent Immature Platelet Fraction 11.9 H 0.0-7.6 % Blood Morphology Comment NORMAL Sodium Level 137 135-145 MMOL/L Potassium Level 3.1 L 3.6-5.0 MMOL/L Chloride Level 100 98-107 MMOL/L Carbon Dioxide Level 20 L 21-32 MMOL/L Anion Gap 17 H 5-14 MMOL/L Blood Urea Nitrogen 16 7-18 MG/DL Creatinine 1.15 0.60-1.30 MG/DL Estimat Glomerular Filtration Rate 49 BUN/Creatinine Ratio 14 Glucose Level 176 H 70-105 MG/DL Glucometer 178 H 70-110 MG/DL Calcium Level 9.2 8.5-10.1 MG/DL Corrected Calcium 9.4 8.5-10.1 MG/DL Magnesium Level 1.8 1.6-2.4 MG/DL Total Bilirubin 0.8 0.1-1.0 MG/DL Aspartate Amino Transf (AST/SGOT) 27 5-34 U/L Alanine Aminotransferase (ALT/SGPT) 19 0-55 U/L Alkaline Phosphatase 134 40-136 U/L C-Reactive Protein High Sensitivity 11.66 H 0.00-0.50 MG/DL Total Protein 7.6 6.4-8.2 GM/DL Albumin 3.7 3.2-4.5 GM/DL Blood Gas Puncture Site RT RADIAL Blood Gas Patient Temperature 37 Arterial Blood pH 7.38 7.37-7.43 Arterial Blood Partial Pressure CO2 34 L 35-45 MMHG Arterial Blood Partial Pressure O2 61 L 79-93 MMHG Arterial Blood HCO3 20 L 23-27 MMOL/L Arterial Blood Total CO2 21.0 21.0-31.0 MMOL/L Arterial Blood Oxygen Saturation 89 L 94-100 % Arterial Blood Base Excess -4.2 L -2.5-2.5 MMOL/L Lito Test YES-POS Blood Gas Ventilator Setting NO Blood Gas Inspired Oxygen ROOM AIR Lactic Acid Level 1.71 0.50-2.00 MMOL/L Urine Color YELLOW Urine Clarity CLEAR Urine pH 6.5 5-9 Urine Specific Baxter 1.025 H 1.016-1.022 Urine Protein 2+ H NEGATIVE Urine Glucose (UA) NEGATIVE NEGATIVE Urine Ketones TRACE H NEGATIVE Urine Nitrite NEGATIVE NEGATIVE Urine Bilirubin NEGATIVE NEGATIVE Urine Urobilinogen 1.0 < = 1.0 MG/DL Urine Leukocyte Esterase NEGATIVE NEGATIVE Urine RBC (Auto) TRACE-I NEGATIVE Urine RBC NONE /HPF Urine WBC NONE /HPF Urine Crystals NONE /LPF Urine Bacteria TRACE /HPF Urine Casts NONE /LPF Urine Mucus NEGATIVE /LPF Urine Culture Indicated NO My Orders Orders - JUANCARLOS SUAREZ Ed Iv/Invasive Line Start (09/30/20 09:39) Ns Iv 1000 Ml (Sodium Chloride 0.9%) (09/30/20 09:45) Ns Iv 1000 Ml (Sodium Chloride 0.9%) (09/30/20 09:45) Accucheck Stat ONCE (09/30/20 09:39) Cbc With Automated Diff (09/30/20 09:40) Comprehensive Metabolic Panel (09/30/20 09:40) Hs C Reactive Protein (09/30/20 09:40) Chest 1 View, Ap/Pa Only (09/30/20 09:40) Magnesium (09/30/20 09:40) Ondansetron Injection (Zofran Injectio (09/30/20 09:45) Arterial Blood Gas (09/30/20 09:48) Manual Differential (09/30/20 09:40) Blood Culture (09/30/20 10:20) Sputum Culture (09/30/20 10:20) Urinalysis (09/30/20 10:20) Urine Culture (09/30/20 10:20) Ed Iv/Invasive Line Start (09/30/20 10:20) Ed Iv/Invasive Line Start (09/30/20 10:20) Vital Signs Adult Sepsis Patie Q15M (09/30/20 10:20) O2 (09/30/20 10:20) Remove Rings In Anticipation O (09/30/20 10:20) Lactic Acid Analyzer (09/30/20 10:20) Ceftriaxone (Rocephin) (09/30/20 10:30) Azithromycin Injection (Zithromax Inject (09/30/20 10:30) Potassium Cl 10meq/50ml Ivpb (Kcl 10 Meq (09/30/20 10:30) Medications Given in ED Current Medications Medications Dose Ordered Sig/Ny Route Start Time Stop Time Status Last Admin Dose Admin Azithromycin 500 mg/Sodium Chloride 255 ml @ 250 mls/hr ONCE ONCE IV 09/30/20 10:30 09/30/20 11:31 DC 09/30/20 11:26 250 MLS/HR Ceftriaxone Sodium 1000 mg/ Sterile Water 10 ml @ 200 mls/hr ONCE ONCE IV 09/30/20 10:30 09/30/20 10:32 DC 09/30/20 11:24 200 MLS/HR Ondansetron HCl 4 mg ONCE ONCE IVP 09/30/20 09:45 09/30/20 09:46 DC 09/30/20 09:46 4 MG Potassium Chloride 50 ml @ 50 mls/hr ONCE ONCE IV 09/30/20 10:30 09/30/20 11:29 DC 09/30/20 11:24 50 MLS/HR Sodium Chloride 1,000 ml @ 0 mls/hr Q0M ONCE IV 09/30/20 09:45 09/30/20 09:46 DC 09/30/20 09:43 1,000 MLS/HR Vital Signs/I&O 09/30/20 09:40 Temp 35.4 Pulse 122 Resp 20 B/P (MAP) 123/83 (96) Pulse Ox 95 O2 Delivery Room Air Capillary Refill : Progress Note #1: Time: 09:47 Progress Note Concern for DKA versus HHS. Her steroids may have triggered her hyperglycemia. She is oxygenating okay 92 to 94%. An ABG may do dual duty for her COPD exacerbation as well as her DKA. Plan to give her 2 L of fluid initially check some labs and urinalysis. Progress Note #2: Time: 10:23 Progress Note Apparent lobar pneumonia on chest x-ray so a septic work-up was completed. She already has sufficient fluids to correct her 20 mL/kg fluid bolus. Rocephin and azithromycin are ordered. Heart rate improving down to 105. An ABG has been ordered. Diagnostic Imaging Diagonstic Imaging: Xray Plain Films/CT/US/NM/MRI: chest Comments NAME: BRANDEE GALDAMEZ [facility] REC#: [id number] PT STATUS: REG ER : 1965 PHYSICIAN: JUANCARLOS SUAREZ MD ADMIT DATE: 09/30/20/ER Draft Date of Exam:09/30/20 CHEST 1 VIEW, AP/PA ONLY HISTORY: Abnormal breath sounds, weakness, dizziness, diabetic COMPARISON: 08/16/2020 TECHNIQUE: Frontal view chest FINDINGS: There are increased airspace opacities throughout the left lung, with particularly increased consolidation in the left upper lobe. The cardiac silhouette is normal in size. There is no pleural effusion or pneumothorax. There are degenerative changes in the shoulders and spine. There is aortic atherosclerosis. IMPRESSION: 1. Significantly increased airspace opacity in left lung, particularly the left upper lobe, concerning for pneumonia. Dictated on workstation # [id number] Dict: 09/30/2057 Trans: 09/30/20 0959 [facility] [id number] Interpreted by: ASHLI MALIN MD Electronically signed by: Reviewed: Reviewed by Me Departure Communication (Admissions) Time/Spoke to Admitting Phy: 12:45 Discussed the case with Dr. Esquivel and she agrees to admit the patient to cardiac stepdown on Rocephin and azithromycin. Beta hydroxybutyrate. Impression Primary Impression: Pneumonia Qualified Codes: J18.9 - Pneumonia, unspecified organism Additional Impressions: Acute respiratory failure with hypoxemia Sepsis Qualified Codes: A41.9 - Sepsis, unspecified organism; R65.20 - Severe sepsis without septic shock; J96.01 - Acute respiratory failure with hypoxia Type 2 diabetes mellitus with hyperosmolar hyperglycemic state (HHS) Disposition: ADMITTED INPATIENT Condition: Stable Admissions Decision to Admit Reason: Admit from ER (General) Decision to Admit/Date: Sep 30, 2020 Time/Decision to Admit Time: 11:30 Departure-Patient Inst. Referrals: LEVY BENAVIDEZ DO (PCP) Primary Care Physician [facility] (Family) Primary Care Physician JUANCARLOS SUAREZ Sep 30, 2020 09:47
[2020-09-30 09:59] LABS: ALBUMIN 3.7 GM/DL (3.2-4.5); POTASSIUM 3.1 MMOL/L (3.6-5.0)
--- NOTE | 2020-09-30 09:59 | Diagnostic Imaging Report ---
HISTORY: Abnormal breath sounds, weakness, dizziness, diabetic COMPARISON: 08/16/2020 TECHNIQUE: Frontal view chest FINDINGS: There are increased airspace opacities throughout the left lung, with particularly increased consolidation in the left upper lobe. The cardiac silhouette is normal in size. There is no pleural effusion or pneumothorax. There are degenerative changes in the shoulders and spine. There is aortic atherosclerosis. IMPRESSION: 1. Significantly increased airspace opacity in left lung, particularly the left upper lobe, concerning for pneumonia. Dictated by: Dictated on workstation # [id number]
[2020-09-30 10:00] LABS: CALCIUM 9.2 MG/DL (8.5-10.1); HEMOGLOBIN 13.2 g/dL (11.5-16.0)
[2020-09-30 10:02] LABS: BASOPHILS # (AUTO) 0.1 10^3/uL (0.0-0.1); BASOPHILS % (AUTO) 1 % (0-10); EOSINOPHILS # (AUTO) 2.9 10^3/uL (0.0-0.3); EOSINOPHILS % (AUTO) 16 % (0-10); HEMATOCRIT 43 % (35-52); LYMPHOCYTES # (AUTO) 2.1 10^3/uL (1.0-4.0); LYMPHOCYTES % (AUTO) 12 % (12-44); MEAN CORPUSCULAR HEMOGLOBIN 24 pg (25-34); MEAN CORPUSCULAR HGB CONC 30 g/dL (32-36); MEAN CORPUSCULAR VOLUME 79 fL (80-99); MONOCYTES # (AUTO) 0.7 10^3/uL (0.0-1.0); MONOCYTES % (AUTO) 4 % (0-12); NEUTROPHILS # (AUTO) 12.3 10^3/uL (1.8-7.8); NEUTROPHILS % (AUTO) 67 % (42-75); PLATELET COUNT 64 10^3/uL (130-400); TOTAL PROTEIN 7.6 GM/DL (6.4-8.2); WHITE BLOOD COUNT 18.4 10^3/uL (4.3-11.0)
[2020-09-30 10:03] LABS: BILIRUBIN,TOTAL 0.8 MG/DL (0.1-1.0)
[2020-09-30 10:05] LABS: CREATININE SERUM 1.15 MG/DL (0.60-1.30)
[2020-09-30 10:08] LABS: MAGNESIUM 1.8 MG/DL (1.6-2.4)
[2020-09-30 10:25] LABS: NEUTROPHILS % (MANUAL) 64 %
[2020-09-30 10:26] LABS: BAND NEUTROPHILS 2 %; EOSINOPHILS % (MANUAL) 19 %; HYPERSEGMENTED NEUT SLIGHT; LYMPHOCYTES % (MANUAL) 11 %; MONOCYTES % (MANUAL) 4 %; RBC MORPH NORMAL
[2020-09-30 10:29] LABS: ABG BASE EXCESS -4.2 MMOL/L (-2.5-2.5); ABG OXYGEN SATURATION 89 % (94-100); ABG PCO2 34 MMHG (35-45); ABG PH 7.38 (7.37-7.43); ABG PO2 61 MMHG (79-93)
[2020-09-30 10:30] LABS: ALLENS TEST YES-POS; INSPIRED O2 ROOM AIR; PATIENT TEMP 37; VENTILATOR NO
[2020-09-30] MEDS ORDERED: AZITHROMYCIN INJECTION 500 MG in NS (IVPB) 250 ML IV ONE (10:30)
[2020-09-30] MEDS ORDERED: POTASSIUM CL 10MEQ/50ML IVPB 50 ML IV ONE (10:30)
[2020-09-30] MEDS ORDERED: cefTRIAXone 1,000 MG in WATER (STERILE) FOR INJECTION 10 ML IV ONE (10:30)
[2020-09-30 12:13] LABS: BILIRUBIN,URINE NEGATIVE (NEGATIVE); CLARITY,URINE CLEAR; COLOR,URINE YELLOW; GLUCOSE, URINE (UA) NEGATIVE (NEGATIVE); KETONES,URINE TRACE (NEGATIVE); LEUKOCYTE ESTERASE ,URINE NEGATIVE (NEGATIVE); NITRITE,URINE NEGATIVE (NEGATIVE); PH,URINE 6.5 (5-9); PROTEIN,URINE 2+ (NEGATIVE)
[2020-09-30 12:21] LABS: BACTERIA,URINE TRACE /HPF
[2020-09-30] MEDS ORDERED: ACETAMINOPHEN 325 MG TABLET PO PRN (14:00)
[2020-09-30] MEDS ORDERED: ONDANSETRON 4 MG/2 ML (SDV) Z0FRAN IV PRN (14:00)
[2020-09-30] MEDS ORDERED: PROMETHAZINE INJ 25 MG/ML (PHENERGAN) AMP IV PRN (14:00)
[2020-09-30] MEDS ORDERED: ACETAMINOPHEN 650 MG SUPP (TYLENOL) PR PRN (14:00)
[2020-09-30] MEDS ORDERED: ENOX80DI7 SQ (14:02)
[2020-09-30] MEDS ORDERED: METF-865 PO (14:02)
[2020-09-30] MEDS ORDERED: HYDR-700 PO (14:02)
[2020-09-30] MEDS ORDERED: AMIT75TA2 PO (14:02)
[2020-09-30] MEDS ORDERED: PRD20T PO (14:02)
[2020-09-30] MEDS ORDERED: EMPA10TA PO (14:02)
[2020-09-30] MEDS: NS IV 1000 ML 1,000 ML IV SCH ×2 (14:07→20:17)
[2020-09-30 14:14] VITALS: BP 129/81
[2020-09-30] MEDS ORDERED: RT-ALBUTEROL SULF 2.5 MG/3 ML PRE-MIX VIAL IH PRN (14:30)
[2020-09-30] MEDS ORDERED: clonazePAM 1 MG (KlonoPIN) TAB PO PRN (14:45)
[2020-09-30] MEDS: GABAPENTIN 300 MG (NEURONTIN) CAP PO SCH ×2 (14:56→20:40)
[2020-09-30 15:55] VITALS: BP 123/74
[2020-09-30] MEDS: inSUlin (REGULAR) HUMAN 1 UNIT/0.01 ML (CHARGE PER UNIT) SC SCH ×2 (16:18→20:16)
[2020-09-30 19:20] VITALS: BP 138/67
[2020-09-30] MEDS ORDERED: LOPERAMIDE 2 MG (IMODIUM) TABLET PO PRN (19:45)
[2020-09-30] MEDS ORDERED: CALCIUM CARBONATE 500 MG (TUMS) TAB.CHEW PO PRN (19:45)
[2020-09-30] MEDS ORDERED: ALPRAZolam 0.25 MG (XANAX) TAB PO PRN (19:45)
[2020-09-30] MEDS ORDERED: DOCUSATE SODIUM 100 MG (COLACE) CAP PO PRN (19:45)
[2020-09-30] MEDS ORDERED: MELATONIN 3 MG TABLET PO PRN (19:45)
[2020-09-30] MEDS ORDERED: HYDROcodone/APAP 5 MG/325 MG (LORTAB) TAB PO PRN (19:45)
[2020-09-30] MEDS ORDERED: diphenhydrAMINE 25 MG TAB (BENADRYL) PO PRN (19:45)
[2020-09-30] MEDS: SENNA W/DOCUSATE (SENOKOT S) TABLET PO SCH (20:18)
[2020-09-30] MEDS ORDERED: morphine INJ 4 MG/ML 1 ML (VIAL/SYRINGE) IVP PRN (20:30)
[2020-09-30] MEDS: MELATONIN 3 MG TABLET PO SCH (20:36)
[2020-09-30] MEDS: LOSARTAN 25 MG (COZAAR) TAB PO SCH (20:40)
[2020-09-30] MEDS: DULoxetine 30 MG (CYMBALTA) CAP PO SCH (20:40)
[2020-09-30] MEDS: RT-ALBUTEROL SULF 2.5 MG/3 ML PRE-MIX VIAL INH SCH (20:57)
[2020-09-30] MEDS: RT--FLUTICASONE/SALMETEROL 232-14 (AIRDUO RespiCLICK) IH SCH (20:57)
[2020-09-30] MEDS ORDERED: GABAPENTIN 300 MG (NEURONTIN) CAP PO SCH (21:00)
[2020-09-30] MEDS ORDERED: ENOXAPARIN 40 MG/0.4 ML (LOVENOX) SYR SC SCH (21:00)
[2020-09-30 23:00] VITALS: BP 121/71
[2020-10-01] VITALS (7 sets, daily range): BP systolic 109–125; BP diastolic 66–97
[2020-10-01 04:36] LABS: BASOPHILS # (AUTO) 0.1 10^3/uL (0.0-0.1); BASOPHILS % (AUTO) 1 % (0-10); EOSINOPHILS # (AUTO) 2.8 10^3/uL (0.0-0.3); EOSINOPHILS % (AUTO) 18 % (0-10); HEMATOCRIT 35 % (35-52); HEMOGLOBIN 10.6 g/dL (11.5-16.0); LYMPHOCYTES % (AUTO) 13 % (12-44); MEAN CORPUSCULAR HEMOGLOBIN 24 pg (25-34); MEAN CORPUSCULAR HGB CONC 31 g/dL (32-36); MEAN CORPUSCULAR VOLUME 80 fL (80-99); MONOCYTES # (AUTO) 0.7 10^3/uL (0.0-1.0); MONOCYTES % (AUTO) 5 % (0-12); NEUTROPHILS # (AUTO) 9.9 10^3/uL (1.8-7.8); NEUTROPHILS % (AUTO) 63 % (42-75); PLATELET COUNT 40 10^3/uL (130-400); WHITE BLOOD COUNT 15.8 10^3/uL (4.3-11.0)
[2020-10-01 04:50] LABS: ALBUMIN 2.9 GM/DL (3.2-4.5)
[2020-10-01 04:51] LABS: CHLORIDE 108 MMOL/L (98-107); POTASSIUM 3.1 MMOL/L (3.6-5.0); SODIUM 140 MMOL/L (135-145)
[2020-10-01 04:52] LABS: CALCIUM 8.1 MG/DL (8.5-10.1)
[2020-10-01 04:53] LABS: GLUCOSE 123 MG/DL (70-105); TOTAL PROTEIN 5.8 GM/DL (6.4-8.2)
[2020-10-01 04:54] LABS: CARBON DIOXIDE 20 MMOL/L (21-32)
[2020-10-01 04:55] LABS: BILIRUBIN,TOTAL 0.3 MG/DL (0.1-1.0)
[2020-10-01 04:56] LABS: ALKALINE PHOSPHATASE 100 U/L (40-136)
[2020-10-01 04:57] LABS: CREATININE SERUM 0.87 MG/DL (0.60-1.30); GFR ESTIMATED > 60
[2020-10-01 04:58] LABS: BUN/CREATININE RATIO 15
[2020-10-01 04:59] LABS: ALANINE AMINOTRANSFERASE 12 U/L (0-55)
[2020-10-01] MEDS: inSUlin (REGULAR) HUMAN 1 UNIT/0.01 ML (CHARGE PER UNIT) SC SCH ×4 (05:14→20:31)
[2020-10-01 06:29] LABS: ABSOLUTE RETIC # 109 10e9/uL (24-90); RETICULOCYTE % 2.48 % (0.50-2.40)
--- NOTE | 2020-10-01 06:30 | History & Physical-Hospitalist ---
History of Present Illness HPI/Chief Complaint CC: SOB HPI: This is a 55yo clinic Pt of [facility] with who has also seen Dr. Hernandez recently for a lung mass, who presented to the ER with SOB and acute respiratory failure, hypoxic type. She ordinarily does not wear oxygen and currently she is on three liters. She reports she is feeling much better, but her platelets are declining at 40,000, I will go ahead and consult Dr. Hernandez and Dr. Claros for cardiac evaluation and I have restarted her home medication and will order an echo. She recently had DVT on Eliquis. Source: patient Exam Limitations: no limitations Date Seen 10/01/20 Time Seen by a Provider: 09:30 Attending Physician Rubi Guerra DO PCP Quinten Stroud DO Referring Physician Date of Admission Sep 30, 2020 at 11:50 Home Medications & Allergies Home Medications Reviewed patient Home Medication Reconciliation performed by pharmacy medication reconciliations auto technician mechanic and/or nursing. Patients Allergies have been reviewed. Allergies Allergies Coded Allergies No Known Drug Allergies (Unverified07/27/18) Past Lpeitrq-Xcbtpw-Qwdqjn Hx Patient Social History Marrital Status: single Employed/Student: unemployed Tobacco Use?: Yes Tobacco type used: Cigarettes Smoking Status: Current Everyday Smoker Use of E-Cig and/or Vaping dev: No Substance use?: No Alcohol Use?: No Pt feels they are or have been: No Immunizations Up To Date Date of Influenza Vaccine: Jan 30, 2020 Hepatitis A: Yes Hepatitis B: Yes PED Vaccines UTD: Yes Date of Pneumonia Vaccine: Apr 20, 2011 Seasonal Allergies Seasonal Allergies: Yes Current Status status: No status: No Advance Directives: No Communicates: Verbally Primary Language: Canadian Preferred Spoken Language: Canadian Is interpretation needed?: No Implanted or Applied Medical D: None Past Medical History Surgeries: Abdominal, Gallbladder, Hysterectomy Pulmonary Embolism, COPD Currently Using CPAP: No Currently Using BIPAP: No Deep Vein Thrombosis, High Cholesterol, Hypertension 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 Hypertension 2. Hyperlipidemia 3. COPD 4. Tobaccoism 5. Depression/Anxiety Past Surgical History 1. Cholecystecomy 2. ORIF Rt. distal radius 3. Failed fixation right distal radius with grafting 4. Removal of plate and screws 2013 rt wrist 5. Total Hysterectomy Family Medical History Asthma 19 FATHER G8 BROTHER G8 SISTER Completed stroke 19 FATHER Diabetes mellitus G8 SISTER FH: aneurysm 19 FATHER FH: stomach cancer 19 MOTHER FHx: drug dependence G8 BROTHER G8 SISTER Hypertension 19 FATHER 19 MOTHER Cancer, Stroke, Vascular Disease Review of Systems Constitutional: see HPI, malaise, weakness Respiratory: cough, dyspnea on exertion Cardiovascular: no symptoms reported Psychiatric/Neurological: Anxiety, Depressed Physical Exam Physical Exam Vital Signs Vital Signs - First Documented 09/30/20 09/30/20 09:40 13:35 Temp 35.4 Pulse 122 Resp 20 B/P (MAP) 123/83 (96) Pulse Ox 95 O2 Delivery Room Air O2 Flow Rate 2.00 Capillary Refill : Less Than 3 Seconds Height, Weight, BMI Height: 5'2.00" Weight: 186lbs. 0.0oz. 84.845881ng; 30.91 BMI Method:Stated General Appearance: Anxious, Chronically ill Eyes: Right Eye Normal Inspection, Right Eye PERRL HEENT: PERRL/EOMI, Normal ENT Inspection, Pharynx Normal, Moist Mucous Membranes Neck: Full Range of Motion, Normal Inspection, Non Tender Respiratory: Chest Non Tender, Lungs Clear, No Accessory Muscle Use, No Respiratory Distress, Decreased Breath Sounds Cardiovascular: Regular Rate, Rhythm, No Edema, No Gallop, No JVD, No Murmur, Normal Peripheral Pulses Gastrointestinal: Normal Bowel Sounds, No Organomegaly, No Pulsatile Mass, Non Tender, Soft Back: Normal Inspection, No CVA Tenderness, No Vertebral Tenderness Extremity: Normal Capillary Refill, Normal Inspection, Normal Range of Motion, Non Tender, No Calf Tenderness, No Pedal Edema Neurologic/Psychiatric: Alert, Oriented x3, No Motor/Sensory Deficits, Normal Mood/Affect Skin: Normal Color, Warm/Dry Lymphatic: No Adenopathy Results Results/Procedures Labs Laboratory Tests 09/30/20 09:40 10/01/20 04:05 Patient resulted labs reviewed. Assessment/Plan Admission Diagnosis Assessment: Acute respiratory failure Hyperglycemia Recent pulmonary embolism Acute pneumonia Smoker Lung mass DVT on Eliquis Thrombocytopenia Hypertension Hyperlipidemia Plan: Appreciate cardiology Echo IV antibiotics CT of chest and abdomen Tissue biopsy if possible per [facility] or CT-guided needle biopsy Admission Status: Inpatient Order (span 2 midnights) Reason for Inpatient Admission: Respiratory failure Diagnosis/Problems Diagnosis/Problems (1) Acute on chronic respiratory failure with hypoxemia Status: Acute (2) Type 2 diabetes mellitus with complication Status: Chronic (3) Type 2 diabetes mellitus with hyperosmolar hyperglycemic state (HHS) Status: Acute (4) Acute kidney injury Status: Acute (5) Thrombocytopenia Status: Acute (6) Pulmonary hypertension Status: Chronic (7) History of pulmonary embolism Status: Chronic (8) Pneumonia Status: Acute Qualifiers: Pneumonia type: due to unspecified organism Laterality: left Lung l ocation: unspecified part of lung Qualified Codes: J18.9 - Pneumonia, unspecified organism (9) Essential hypertension Status: Chronic (10) Cigarette smoker (11) Lung mass RUBI GUERRA DO Oct 01, 2020 06:30
[2020-10-01 06:52] LABS: ANISOCYTOSIS MARKED; BAND NEUTROPHILS 0 %; BASOPHILS % (MANUAL) 0 %; EOSINOPHILS % (MANUAL) 19 %; LYMPHOCYTES % (MANUAL) 19 %; MONOCYTES % (MANUAL) 2 %; NEUTROPHILS % (MANUAL) 60 %; POLYCHROMASIA SLIGHT
[2020-10-01] MEDS: RT-ALBUTEROL SULF 2.5 MG/3 ML PRE-MIX VIAL INH SCH ×3 (07:00→21:45)
[2020-10-01] MEDS: RT--FLUTICASONE/SALMETEROL 232-14 (AIRDUO RespiCLICK) IH SCH ×2 (07:01→21:45)
[2020-10-01] MEDS: polyethylene glycoL POWDER 17 GM (MIRALAX) PACK PO SCH (07:31)
[2020-10-01] MEDS: SENNA W/DOCUSATE (SENOKOT S) TABLET PO SCH ×2 (07:31→20:31)
[2020-10-01] MEDS: PANTOPRAZOLE 40 MG (PROTONIX) TAB PO SCH (08:04)
[2020-10-01] MEDS: GABAPENTIN 300 MG (NEURONTIN) CAP PO SCH ×4 (08:04→21:40)
[2020-10-01] MEDS: LOSARTAN 25 MG (COZAAR) TAB PO SCH ×2 (08:04→20:31)
[2020-10-01] MEDS: AZITHROMYCIN INJECTION 500 MG in NS (IVPB) 250 ML IV SCH (08:05)
[2020-10-01] MEDS: DULoxetine 30 MG (CYMBALTA) CAP PO SCH ×2 (08:05→20:31)
[2020-10-01] MEDS: cefTRIAXone 1,000 MG in WATER (STERILE) FOR INJECTION 10 ML IV SCH (08:05)
[2020-10-01] MEDS ORDERED: KCL 20 MEQ TAB (K-DUR) PO ONE ×2 (10:30→12:30)
[2020-10-01] MEDS ORDERED: MELA5TAB14 PO (11:43)
[2020-10-01] MEDS ORDERED: ONDA8TAB15 PO (11:43)
[2020-10-01] MEDS ORDERED: ALBU2.5V4 NEB (11:43)
[2020-10-01] MEDS ORDERED: GABA300C PO ×2 (11:43)
[2020-10-01] MEDS: BIVALIRUDIN INJECTION 250 MG in D5W 50 ML IVPB SOLUTION 45 ML IV SCH (12:00)
--- NOTE | 2020-10-01 12:37 | Consultation-Cardiology ---
HPI-Cardiology Cardiology Consultation: Date of Consultation 10/01/20 Date of Admission Attending Physician Rubi Esquivel DO Admitting Physician Quinten Stroud DO Consulting Physician JOMAR RAO JR, MD HPI: Time Seen by a Provider: 11:30 Chief Complaint: Reason for consultation: Tachycardia. I had the pleasure of seeing Dolly on the cardiac stepdown unit at [facility] this morning. She has no known history of cardiac disease but does have cardiac risk factors of hypertension and cigarette smoking. Approximately 4 weeks ago she developed Covid infection that was complicated by a pulmonary embolism. She believes she was placed on Eliquis at that time. However, she then developed a deep venous thrombosis in the right lower extremity and at that time the Eliquis was stopped and she was placed on therapeutic dosing of enox aparin which she was administering herself at home. Yesterday she noticed that her blood sugars were elevated and she became concerned and came to the emergency room for further evaluation. She was admitted to the hospital for further evaluation. While here in the hospital she has had persistent sinus tachycardia and the hospitalist has requested a cardiology evaluation. She does have chronic dyspnea on exertion which she relates is due to her long history of cigarette smoking. She denies any chest discomfort, palpitations, lightheadedness, or syncope. She did have some right lower extremity edema when she developed the right deep venous thrombosis but denies any edema at this time. Review of Systems-Cardiology Review of Systems Other comments Review of 10 organ systems is as per the history of present illness, otherwise negative. All Other Systems Reviewed Negative Unless Noted: Yes VJR-Frmkfu-Ihhmqn Hx Patient Social History Smoking Status: Current Everyday Smoker 2nd Hand Smoke Exposure: Yes Have you traveled recently?: No Alcohol Use?: No Pt feels they are or have been: No Tobacco type used: Cigarettes Immunizations Up To Date Tetanus Booster (TDap): More than 5yrs Date of Pneumonia Vaccine: Apr 20, 2011 Date of Influenza Vaccine: Jan 30, 2020 Past Medical History PMH As described under Assessment. Family Medical History Family Medical History: She does not know of any family history of premature coronary artery disease. Family History: Asthma 19 FATHER G8 BROTHER G8 SISTER Completed stroke 19 FATHER Diabetes mellitus G8 SISTER FH: aneurysm 19 FATHER FH: stomach cancer 19 MOTHER FHx: drug dependence G8 BROTHER G8 SISTER Hypertension 19 FATHER 19 MOTHER Allergies and Home Medications Allergies Coded Allergies: No Known Drug Allergies (Unverified , 07/27/18) Home Medications Albuterol Sulfate 6.7 Gm Hfa.aer.ad, 2 PUFF IH Q4H PRN for SHORTNESS OF BREATH, (Reported) Last Action: Last Taken Edited Albuterol Sulfate 2.5 Mg/3 Ml Vial.neb, 3 ML NEB Q4H PRN for SHORTNESS OF BREATH, (Reported) Last Action: New Order Amitriptyline HCl 75 Mg Tablet, 75 MG PO HS, (Reported) Last Action: Last Taken Edited Duloxetine HCl 60 Mg Capsule.dr, 60 MG PO BID, (Reported) LAST FILLED 08-14-2020 #60/30 DAY SUPPLY Last Action: Edited Empagliflozin 10 Mg Tablet, 10 MG PO DAILY, (Reported) Last Action: Last Taken Edited Enoxaparin Sodium 80 Mg/0.8 Ml Syringe, 80 MG SQ BID, (Reported) Last Action: Last Taken Edited Fluticasone/Salmeterol 1 Each Blst.w.dev, 1 EACH IH BID, (Reported) Last Action: Last Taken Edited Gabapentin 300 Mg Capsule, 300 MG PO 0800,1300 PRN for PAIN-BREAKTHROUGH, (Reported) Last Action: New Order Gabapentin 300 Mg Capsule, 600 MG PO HS, (Reported) TAKES 2 (300MG) CAPS Last Action: New Order Hydroxyzine HCl 25 Mg Tablet, 25-50 MG PO Q8H PRN for ANXIETY, (Reported) Last Action: Edited Losartan Potassium 25 Mg Tablet, 25 MG PO BID, (Reported) Last Action: Last Taken Edited Melatonin 5 Mg Tablet, 5 MG PO HS, (Reported) Last Action: New Order Metformin HCl 500 Mg Tab.er.24h, 500 MG PO BID, (Reported) LAST FILLED 08-14-2020 #60/30 DAY SUPPLY Last Action: Edited Ondansetron HCl 8 Mg Tablet, 8 MG PO Q8H PRN for NAUSEA/VOMITING-1ST LINE, (Reported) Last Action: New Order Pantoprazole Sodium 40 Mg Tablet.dr, 40 MG PO DAILY, (Reported) Last Action: Last Taken Edited Polyethylene Glycol 3350 17 Gm Powd.pack, 17 GM PO DAILY PRN for CONSTIPATION- 2ND LINE, (Reported) Last Action: Edited Prednisone 20 Mg Tab, 40 MG PO DAILY, (Reported) FILLED 09-26-2020 #10/5 DAY SUPPLY TAKES 2 (20MG) TABS Last Action: Edited Patient Home Medication List Home Medication List Reviewed: Yes Physical Exam-Cardiology Physical Exam Vital Signs/I&O 10/01/20 10/01/20 10/01/20 10/01/20 01:00 03:15 06:34 07:01 Temp 36.4 Pulse 92 88 93 Resp 17 B/P (MAP) 116/68 (84) Pulse Ox 95 95 O2 Delivery Nasal Cannula Nasal Cannula O2 Flow Rate 4.00 4.00 10/01/20 10/01/20 10/01/20 10/01/20 07:07 07:29 07:44 08:18 Temp 36.8 Pulse 98 Resp 20 B/P (MAP) 120/68 (85) Pulse Ox 93 90 90 O2 Delivery Nasal Cannula High Flow N/C Nasal Cannula O2 Flow Rate 3.00 4.00 4.00 10/01/20 00:00 Intake Total 1655 ml Output Total 250 ml Balance 1405 ml Capillary Refill : Less Than 3 Seconds Constitutional: other (She is well-nourished but appears older than her stated age. She is in no acute distress.) HEENT: other (She is normocephalic and atraumatic. Poor dentition. Extraocular movements are intact. There are no xanthelasma. Sclerae are clear.) Neck: non-tender, full range of motion, supple, carotid pulses are 2 + bilaterally, with good upstrokes Respiratory: other (There is good respiratory effort with symmetrical expansion bilaterally. There are decreased breath sounds diffusely with some scattered wheezes and possible rhonchi on the right.) Cardiovascular: tachycardia, S1 and S2, other (1/6 systolic ejection murmur. No rubs or gallops appreciated.) Gastrointestinal: other (The abdomen is soft, nontender and nondistended.) Rectal: deferred Extremities: normal range of motion, non-tender, normal inspection, other (2+ left pretibial edema with no edema on the right lower extremity.) Neurologic/Psychiatric: other (She is alert and oriented x3. Cranial nerves III through XII are grossly intact. She has good motor tone and strength in the upper and lower extremities bilaterally. She is pleasant and has a normal affect.) Skin: normal color, warm/dry Data Review Labs Laboratory Tests 09/30/20 14:20: Lactic Acid Level 1.29 09/30/20 15:42: Glucometer 135H 09/30/20 20:16: Glucometer 161H 09/30/20 20:26: Glucometer 159H 10/01/20 04:05: White Blood Count 15.8H, Red Blood Count 4.37, Hemoglobin 10.6L, Hematocrit 35, Mean Corpuscular Volume 80, Mean Corpuscular Hemoglobin 24L, Mean Corpuscular Hemoglobin Concent 31L, Red Cell Distribution Width 19.7H, Platelet Count 40L, Mean Platelet Volume , Immature Granulocyte % (Auto) 2, Neutrophils (%) (Auto) 63, Lymphocytes (%) (Auto) 13, Monocytes (%) (Auto) 5, Eosinophils (%) (Auto) 18H, Basophils (%) (Auto) 1, Neutrophils # (Auto) 9.9H, Lymphocytes # (Auto) 2.0, Monocytes # (Auto) 0.7, Eosinophils # (Auto) 2.8H, Basophils # (Auto) 0.1, Immature Granulocyte # (Auto) 0.3H, Neutrophils % (Manual) 60, Lymphocytes % (Manual) 19, Monocytes % (Manual) 2, Eosinophils % (Manual) 19, Basophils % (Manual) 0, Band Neutrophils 0, Percent Immature Platelet Fraction 14.1H, Polychromasia SLIGHT, Anisocytosis MARKED, Absolute Reticulocyte Count 109H, Percent Reticulocyte Count 2.48H, Sodium Level 140, Potassium Level 3.1L, Chloride Level 108H, Carbon Dioxide Level 20L, Anion Gap 12, Blood Urea Nitrogen 13, Creatinine 0.87, Estimat Glomerular Filtration Rate > 60, BUN/Creatinine Ratio 15, Glucose Level 123H, Calcium Level 8.1L, Corrected Calcium 9.0, Total Bilirubin 0.3, Aspartate Amino Transf (AST/SGOT) 20, Alanine Aminotransferase (ALT/SGPT) 12, Alkaline Phosphatase 100, Total Protein 5.8L, Albumin 2.9L 10/01/20 10:40: Glucometer 272H 10/01/20 12:25: Radiology ECHOCARDIOGRAM (10/01/2020): 1. Left ventricle: The cavity size is normal. Wall thickness is normal. Systolic function is normal. The estimated ejection fraction is 55-65%. There were no regional wall motion abnormalities identified. Doppler parameters are consistent with abnormal left ventricular relaxation (grade 1 diastolic dysfunction). 2. Right atrium: There is an ill-defined mass in the right atrium that appears a dherent to the intra-atrial septum. Differential diagnosis includes thrombus in transit, invasive tumor, or less likely an atrial myxoma. 3. Pericardium, extracardiac: A trivial pericardial effusion is identified anterior to the heart. 4. Pulmonary arteries: The estimated pulmonary artery systolic pressure is 56 mmHg. ECG Impression ECG Comment Sinus tachycardia. A/P-Cardiology Assessment/Admission Diagnosis Sinus tachycardia. I suspect this is secondary to her acute noncardiac illness. I would not treat this or she could develop iatrogenic hypotension. Secondary causes of sinus tachycardia need to be treated. Acute on chronic hypoxemic respiratory failure. Most likely due to her ongoing cigarette smoking now with possible superimposed pneumonia. Additionally, she may have a pulmonary mass. The admitting physician is managing this condition. Pulmonary hypertension. Her pulmonary pressure on her echocardiogram was 56 mmHg. I suspect this is multifactorial due to her probable chronic obstructive pulmonary disease as well as recent pulmonary emboli and possibly due to the pulmonary mass. This will need to be followed longitudinally. Essential hypertension. Resume outpatient antihypertensive medication. Thrombocytopenia. This is in the setting of using low molecular weight heparin for her deep venous thrombosis and pulmonary embolism. This could be heparin- induced thrombocytopenia. I have ordered a blood test for HIT and I would recommend changing the enoxaparin over to bivalirudin until we know whether or not she might have HIT. Thank you for the courtesy of this consultation. I will be happy to follow along with you. Plan See above. JOMAR RAO JR, MD Oct 01, 2020 12:37
--- NOTE | 2020-10-01 12:51 | Diagnostic Imaging Report ---
PROCEDURE: US Venous Lower Ext Leandro. TECHNIQUE: Multiple real-time grayscale images were obtained over the lower extremities in various projections, bilaterally. Additional duplex Doppler and color Doppler images were also obtained. INDICATION: Left lower extremity swelling. Patient has prior history of right lower extremity DVT. A right common femoral vein and superficial femoral vein are patent. There is thrombus identified in the right popliteal vein which appears to be nearly occlusive. There is also thrombus extending into the right calf veins. Evaluation of left lower extremity does show some probable thrombus in the greater saphenous vein near the confluence with the common femoral vein. The left common femoral vein and superficial femoral vein are patent. Popliteal vein and calf veins appear to be patent. No fluid collections are seen. IMPRESSION: 1. No evidence of left lower extremity DVT. There are findings consistent with occlusive thrombus in the right popliteal vein extending into the right calf veins. 2. Thrombus within the left greater saphenous vein near the confluence with the common femoral vein. Dictated by: Dictated on workstation # [id number]
[2020-10-01] MEDS ORDERED: CATHETER FLUSH 10 ML SYR IV PRN (13:00)
[2020-10-01] MEDS ORDERED: HOLD METFORMIN - RECEIVED CONTRAST 20 ML VIAL IV SCH (13:00)
[2020-10-01] MEDS ORDERED: IOHEXOL 350 MG/ML 100 ML (OMNIPAQUE 350) VIAL IV ONE (13:00)
[2020-10-01] MEDS ORDERED: NS 100 ML (IVPB) BAG IV ONE (13:00)
[2020-10-01] MEDS ORDERED: METO50TA7 PO (14:00)
--- NOTE | 2020-10-01 16:18 | Oncology Consultation ---
Visit Information Visit Information Date of Admission Sep 30, 2020 at 11:50 Attending Physician Rubi Esquivel DO Admitting Physician Quinten Stroud DO Chief Complaint Left side pneumonia, PE and DVT, h/o Covid 07/2020. ? left lung mass Interval History Ms. Morgan is a 55 year old female was seen by Dr Meehan at cancer center on 09/16/2020 for f/u of bilateral PE, more on the left side, right lower extremity DVT 08/2020, left upper lobe consolidation/pneumonia versus mass. She stated that she was going down hill since she was diagnosed with Covid 08/08/2020. She was admitted her for the Covid pneumonia and then transferred to [facility] for aggressive management as well as monoclonal antibody. She was found to have bilateral PE at [facility]. She was slowly getting better and was eventually discharged to home on oxygen and oral eliquis. Mid August 2020, developed right lower extremity DVT. Eliquis was changed to Levonox 90mg sq bid. Plt was normal. Saw Dr Meehan on 09/16/2020 for f/u of MELISSA lung mass and DVT/PE. Dr. Meehan decided to have f/u CT scan in 3-4 weeks and continue Lovenox 90mg bid Presented to ER on 09/30/2020 with increasing SOB, hyperglycemia and subsequently admitted to ICU for pneumonia/sepsis and COPD exacerbation. She was also noticed to have Plt dropped from normal to 60s yesterday and 40s today. 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 The Lovenox was changed to angioMax today. Pt is currently on O2 4-5 L/mins, NC. No fever. I consulted the patient on: 10/01/20 15:58 Time Seen by Provider: 16:18 Review of Systems Constitutional: malaise, weakness EENTM: see HPI Health Status Allergies Coded Allergies: No Known Drug Allergies (Unverified , 07/27/18) Home Medications Albuterol Sulfate (Proventil Hfa) 6.7 Gm Hfa.aer.ad, 2 PUFF IH Q4H PRN for SHORTNESS OF BREATH, (Reported) Albuterol Sulfate (Albuterol Sulfate) 2.5 Mg/3 Ml Vial.neb, 3 ML NEB Q4H PRN for SHORTNESS OF BREATH, (Reported) Amitriptyline HCl (Amitriptyline HCl) 75 Mg Tablet, 75 MG PO HS, (Reported) Duloxetine HCl (Cymbalta) 60 Mg Capsule.dr, 120 MG PO 1800, (Reported) TAKES 2 (60MG) CAPS LAST FILLED 08-14-2020 #60/30 DAY SUPPLY Empagliflozin (Jardiance) 10 Mg Tablet, 10 MG PO DAILY, (Reported) Enoxaparin Sodium (Enoxaparin Sodium) 80 Mg/0.8 Ml Syringe, 80 MG SQ BID, (Reported) Fluticasone/Salmeterol (Advair 250-50 Diskus) 1 Each Blst.w.dev, 1 EACH IH BID, (Reported) Gabapentin (Neurontin) 300 Mg Capsule, 300 MG PO 0800,1300 PRN for PAIN-BREAKTHROUGH, (Reported) Gabapentin (Neurontin) 300 Mg Capsule, 600 MG PO HS, (Reported) TAKES 2 (300MG) CAPS Hydroxyzine HCl (Hydroxyzine HCl) 25 Mg Tablet, 25-50 MG PO Q8H PRN for ANXIETY, (Reported) Melatonin (Melatonin) 5 Mg Tablet, 5 MG PO HS, (Reported) Metformin HCl (Metformin HCl ER) 500 Mg Tab.er.24h, 500 MG PO BID, (Reported) LAST FILLED 08-14-2020 #60/30 DAY SUPPLY Metoprolol Succinate (Metoprolol Succinate) 50 Mg Tab.er.24h, 50 MG PO HS, (Reported) Ondansetron HCl (Ondansetron HCl) 8 Mg Tablet, 8 MG PO Q8H PRN for NAUSEA/VOMITING-1ST LINE, (Reported) Pantoprazole Sodium (Pantoprazole Sodium) 40 Mg Tablet.dr, 40 MG PO DAILY, (Reported) LAST FILLED 04-18-2020 #90/90 DAY SUPPLY Polyethylene Glycol 3350 (Miralax) 17 Gm Powd.pack, 17 GM PO DAILY PRN for CONSTIPATION-2ND LINE, (Reported) Prednisone (Prednisone) 20 Mg Tab, 40 MG PO DAILY, (Reported) FILLED 09-26-2020 #10/5 DAY SUPPLY TAKES 2 (20MG) TABS YVY-Rwhbal-Owyfzf Hx Patient Social History Drug of Choice: Denies Smoking Status: Current Everyday Smoker Type Used: Cigarettes 2nd Hand Smoke Exposure: Yes Recent Hopitalizations: No Alcohol Use?: No Have you traveled recently?: No Immunizations Up To Date Tetanus Booster (TDap): More than 5yrs Date of Pneumonia Vaccine: Apr 20, 2011 Date of Influenza Vaccine: Jan 30, 2020 Family Medical History Significant Family History: Cancer, Stroke, Vascular Disease Family History: Asthma 19 FATHER G8 BROTHER G8 SISTER Completed stroke 19 FATHER Diabetes mellitus G8 SISTER FH: aneurysm 19 FATHER FH: stomach cancer 19 MOTHER FHx: drug dependence G8 BROTHER G8 SISTER Hypertension 19 FATHER 19 MOTHER Physical Exam Vital Signs Vital Signs - First Documented 09/30/20 09/30/20 09:40 13:35 Temp 35.4 Pulse 122 Resp 20 B/P (MAP) 123/83 (96) Pulse Ox 95 O2 Delivery Room Air O2 Flow Rate 2.00 Capillary Refill : Less Than 3 Seconds Height, Weight, BMI Height: 5'2.00" Weight: 186lbs. 0.0oz. [id number]; 30.91 BMI Method:Stated General Appearance: Mild Distress HEENT: PERRL/EOMI Respiratory: No Accessory Muscle Use, No Respiratory Distress, Crackles, Rhonci, Wheezing Cardiovascular: Regular Rate, Rhythm, Tachycardia Gastrointestinal: Non Tender, Soft Extremity: Calf Tenderness, Pedal Edema Neurologic/Psychiatric: Alert, Oriented x3, Normal Mood/Affect Data Review Labs Laboratory Tests 10/01/20 04:05 Laboratory Tests 09/30/20 09:40: White Blood Count 18.4H, Red Blood Count 5.52H, Mean Corpuscular Volume 79L, Mean Corpuscular Hemoglobin 24L, Mean Corpuscular Hemoglobin Concent 30L, Red Cell Distribution Width 20.0H, Platelet Count 64L, Eosinophils (%) (Auto) 16H, Neutrophils # (Auto) 12.3H, Eosinophils # (Auto) 2.9H, Immature Granulocyte # (Auto) 0.4H, Percent Immature Platelet Fraction 11.9H, Potassium Level 3.1L, Carbon Dioxide Level 20L, Anion Gap 17H, Glucose Level 176H, Glucometer 178H, C- Reactive Protein High Sensitivity 11.66H, Beta-Hydroxybutyrate (Chem panel) 0.50H 09/30/20 10:25: Arterial Blood Partial Pressure CO2 34L, Arterial Blood Partial Pressure O2 61L, Arterial Blood HCO3 20L, Arterial Blood Oxygen Saturation 89L, Arterial Blood Base Excess -4.2L 09/30/20 10:35: 09/30/20 12:01: Urine Specific Mason 1.025H, Urine Protein 2+H, Urine Ketones TRACEH 09/30/20 14:20: 09/30/20 15:42: Glucometer 135H 09/30/20 20:16: Glucometer 161H 09/30/20 20:26: Glucometer 159H 10/01/20 04:05: White Blood Count 15.8H, Hemoglobin 10.6L, Mean Corpuscular Hemoglobin 24L, Mean Corpuscular Hemoglobin Concent 31L, Red Cell Distribution Width 19.7H, Platelet Count 40L, Eosinophils (%) (Auto) 18H, Neutrophils # (Auto) 9.9H, Eosinophils # (Auto) 2.8H, Immature Granulocyte # (Auto) 0.3H, Percent Immature Platelet Fraction 14.1H, Absolute Reticulocyte Count 109H, Percent Reticulocyte Count 2.48H, Potassium Level 3.1L, Chloride Level 108H, Carbon Dioxide Level 20L, Glucose Level 123H, Calcium Level 8.1L, Total Protein 5.8L, Albumin 2.9L 10/01/20 10:40: Glucometer 272H 10/01/20 12:25: Activated Partial Thromboplast Time 77H 10/01/20 15:10: 10/01/20 15:13: Glucometer 138H Laboratory Tests 10/01/20 04:05 Impression & Plan Impression & Plan IMP: 1. Covid pneumonia 08/08/2020. 2. Recurrent MELISSA pneumonia/sepsis, ? mass 3. Bilateral PE treated with eliquis and then developped right lower extremity DVT while on eliquis, then changed to Lovenox 90mg bid sq. Now Lovenox changed to AngioMax. 4. Thrombocytopenia noticed on this admission, Plt drop from 192 (09/14/20) to 64 (09/30/20), ? HIT. HIT antibody test pending. 5. ? bilateral adrenal mass 6. Heavy smoker 7. COPD Rec: 1. CT of the chest/abd/pelvis with contrast to evaluate the lung mass vs pneumonia as well as ? adrenal mass. 2. Aggressive treating pneumonia as you are doing. 3. I think her dropping Plt could be infection, Covid induced ITP, as well as HIT. I would wait for the HIT antibody result. 4. Dr Meehan will be back tomorrow for f/u and decide if she will benefit from steroid treatment or IVIG treatment. 5. Daily CBC, CMP for the next 2 days. BRENT MARIN MD Oct 01, 2020 16:18
--- NOTE | 2020-10-01 19:17 | Diagnostic Imaging Report ---
PROCEDURE: CT chest and abdomen with contrast. TECHNIQUE: Multiple contiguous axial images were obtained through the chest and abdomen after the administration of intravenous contrast. Auto Exposure Controls were utilized during the CT exam to meet ALARA standards for radiation dose reduction. INDICATION: Lung mass COMPARISON STUDY: CT angiogram of the chest from 08/16/2020. CT abdomen from 03/25/2020. FINDINGS: A civof-bc-fvbnudah left pleural effusion has developed. There is some adjacent atelectasis. Thrombus in the left main pulmonary artery has improved. Small filling defects in the right lower lobe have also improved. A left hilar mass encasing the left mainstem bronchus and its bifurcation has decreased in size. There has been development of atelectasis in most of the right upper lobe and some atelectasis of the lingula. Filling defects within the bronchi to this area appear more prominent. Some pleural-based densities along the left pleural effusion are present. These are ill-defined but not appreciably changed. Abdomen and pelvis: There has been development of infarcts within the spleen and left kidney. Right kidney appears unremarkable. Fatty liver is present. On the arterial images, the right lobe of the liver is less dense than the left. Mucosal mass is along the dome of the left lobe of the liver on arterial images. These are not as well imaged on the delayed images and could be a flow artifact related. No thrombus is seen within the aorta. Some mild plaque is seen in the aorta. There is no ascites or free air. IMPRESSION: 1. The left hilar and suprahilar mass along with left paratracheal masses have improved in size, however, there is increasing atelectasis in the left upper lobe and lingula. Left pleural effusion has developed. 2. Improving pulmonary emboli. 3. Infarcts are present within the spleen and left kidney. 4. The left lobe of the liver is inhomogeneous. Possible developing masses or thrombi within the vessels causing inhomogeneous enhancement. Dictated by: Dictated on workstation # [id number]
[2020-10-01] MEDS: MELATONIN 3 MG TABLET PO SCH (20:31)
[2020-10-01] MEDS ORDERED: GABAPENTIN 300 MG (NEURONTIN) CAP PO PRN (21:15)
[2020-10-01] MEDS ORDERED: hydrOXYzine (VISTARIL/ATARAX) 25 MG capsule/tablet PO PRN (21:30)
[2020-10-01] MEDS ORDERED: ONDANSETRON 4 MG (ZOFRAN) ORAL DISSOLVE TAB PO PRN (21:30)
[2020-10-01] MEDS: meTOproloL SUCCINATE 50 MG (TOPROL XL) TAB PO SCH (21:51)
[2020-10-01] MEDS: AMITRIPTYLINE 25 MG (ELAVIL) TAB PO SCH (21:51)
[2020-10-01] MEDS ORDERED: MELATONIN 10 MG TABLET PO SCH (22:00)
[2020-10-02 04:10] VITALS: BP 106/63
[2020-10-02 05:18] LABS: HEMOGLOBIN 10.5 g/dL (11.5-16.0); MEAN CORPUSCULAR VOLUME 79 fL (80-99)
[2020-10-02 05:20] LABS: BASOPHILS # (AUTO) 0.1 10^3/uL (0.0-0.1); BASOPHILS % (AUTO) 1 % (0-10); EOSINOPHILS # (AUTO) 2.7 10^3/uL (0.0-0.3); EOSINOPHILS % (AUTO) 18 % (0-10); HEMATOCRIT 34 % (35-52); LYMPHOCYTES # (AUTO) 2.1 10^3/uL (1.0-4.0); LYMPHOCYTES % (AUTO) 14 % (12-44); MEAN CORPUSCULAR HEMOGLOBIN 24 pg (25-34); MEAN CORPUSCULAR HGB CONC 31 g/dL (32-36); MONOCYTES # (AUTO) 0.7 10^3/uL (0.0-1.0); MONOCYTES % (AUTO) 4 % (0-12); NEUTROPHILS # (AUTO) 9.6 10^3/uL (1.8-7.8); NEUTROPHILS % (AUTO) 62 % (42-75); PLATELET COUNT 44 10^3/uL (130-400); WHITE BLOOD COUNT 15.5 10^3/uL (4.3-11.0)
[2020-10-02 05:27] LABS: ALBUMIN 3.1 GM/DL (3.2-4.5); CHLORIDE 106 MMOL/L (98-107); SODIUM 136 MMOL/L (135-145)
[2020-10-02 05:28] LABS: CALCIUM 8.6 MG/DL (8.5-10.1)
[2020-10-02 05:29] LABS: GLUCOSE 147 MG/DL (70-105)
[2020-10-02 05:30] LABS: TOTAL PROTEIN 6.4 GM/DL (6.4-8.2)
[2020-10-02 05:31] LABS: BILIRUBIN,TOTAL 0.3 MG/DL (0.1-1.0); CARBON DIOXIDE 19 MMOL/L (21-32)
[2020-10-02 05:33] LABS: ALKALINE PHOSPHATASE 107 U/L (40-136); CREATININE SERUM 0.84 MG/DL (0.60-1.30); GFR ESTIMATED > 60
[2020-10-02 05:34] LABS: BUN/CREATININE RATIO 12
[2020-10-02 05:36] LABS: ALANINE AMINOTRANSFERASE 14 U/L (0-55)
[2020-10-02] MEDS: inSUlin (REGULAR) HUMAN 1 UNIT/0.01 ML (CHARGE PER UNIT) SC SCH ×4 (05:51→22:07)
[2020-10-02] MEDS: KCL 20 MEQ TAB (K-DUR) PO SCH (05:51)
[2020-10-02] MEDS: MAGNESIUM 1 GM/100 ML IVPB 100 ML IV SCH (05:51)
[2020-10-02] MEDS: POTASSIUM CL 10MEQ/50ML IVPB 50 ML IV SCH (05:51)
--- NOTE | 2020-10-02 06:30 | Progress Note - Hospitalist ---
ERICKSON GUERRA DO 10/02/20 0630: Subjective HPI/CC On Admission Date Seen by Provider: Oct 02, 2020 CC: SOB HPI: This is a 55yo clinic Pt of [facility] with who has also seen Dr. Hernandez recently for a lung mass, who presented to the ER with SOB and acute respiratory failure, hypoxic type. She ordinarily does not wear oxygen and currently she is on three liters. She reports she is feeling much better, but her platelets are declining at 40,000, I will go ahead and consult Dr. Hernandez and Dr. Claros for cardiac evaluation and I have restarted her home medication and will order an echo. She recently had DVT on Eliquis. Subjective/Events-last exam Pt doing a little better today EICU pulmonology consultation recommended the addition of Spiriva. She will need home oxygen and she cannot have a bronch until her platelet count is greater than 100,00 and she needs to be resolved from the exacerbation before the pro cedure. I did speak with Dr. Hollis who evaluated the CT scan and he does not feel like a needle biopsy is in her best interest and should be a bronchoscopy. 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 I did speak with Dr. Claros also. Dr. Meehan will be updated. Review of Systems General: Fatigue Pulmonary: Dyspnea Focused Exam Lactate Level 09/30/20 10:35: Lactic Acid Level 1.71 09/30/20 14:20: Lactic Acid Level 1.29 Time of Focused Exam: 11:53 Objective Exam Vital Signs Vital Signs Date Time Temp Pulse Resp B/P (MAP) Pulse Ox O2 Delivery O2 Flow Rate FiO2 10/03/20 02:22 94 High Flow N/C 8.00 10/03/20 01:00 98 10/03/20 00:12 19 116/66 (83) 10/02/20 20:19 36.7 Capillary Refill : Less Than 3 Seconds General Appearance: No Apparent Distress, WD/WN, Chronically ill Respiratory: Lungs Clear, Decreased Breath Sounds Cardiovascular: Regular Rate, Rhythm Neurologic/Psychiatric: Alert, Oriented x3, Depressed Affect Results/Procedures Lab Laboratory Tests 10/03/20 03:00 Patient resulted labs reviewed. Assessment/Plan Assessment and Plan Assess & Plan/Chief Complaint Assessment: Acute respiratory failure Hyperglycemia Recent pulmonary embolism Acute pneumonia Smoker Lung mass DVT on Eliquis Thrombocytopenia Hypertension Hyperlipidemia Splenic infarct Plan: Appreciate cardiology Echo IV antibiotics CT of chest and abdomen Tissue biopsy if possible per bron or CT-guided needle biopsy 10/02/2020: Appreciate pulmonology Appreciate cardiology Appreciate oncology Appreciate radiology Continue treatment plan Must await platelet count to return to 100k for bronchoscopy and CT-guided biopsy is not an option Diagnosis/Problems Diagnosis/Problems (1) Acute on chronic respiratory failure with hypoxemia Status: Acute (2) Type 2 diabetes mellitus with complication Status: Chronic (3) Type 2 diabetes mellitus with hyperosmolar hyperglycemic state (HHS) Status: Acute (4) Acute kidney injury Status: Acute (5) Thrombocytopenia Status: Acute (6) Pulmonary hypertension Status: Chronic (7) History of pulmonary embolism Status: Chronic (8) Pneumonia Status: Acute Qualifiers: Pneumonia type: due to unspecified organism Laterality: left Lung location: unspecified part of lung Qualified Codes: J18.9 - Pneumonia, uns pecified organism (9) Essential hypertension Status: Chronic (10) Cigarette smoker (11) Lung mass AMITA WORKMAN MD 10/02/20 1109: Subjective HPI/CC On Admission Time Seen by Provider: 09:45 ERICKSON GUERRA DO Oct 02, 2020 06:30 AMITA WORKMAN MD Oct 02, 2020 11:09
[2020-10-02] MEDS: RT-ALBUTEROL SULF 2.5 MG/3 ML PRE-MIX VIAL INH SCH ×3 (07:07→20:27)
[2020-10-02] MEDS: RT--FLUTICASONE/SALMETEROL 232-14 (AIRDUO RespiCLICK) IH SCH ×2 (07:08→20:27)
[2020-10-02 07:38] VITALS: BP 110/67
[2020-10-02] MEDS: SENNA W/DOCUSATE (SENOKOT S) TABLET PO SCH ×2 (08:54→22:04)
[2020-10-02] MEDS: PANTOPRAZOLE 40 MG (PROTONIX) TAB PO SCH (08:54)
[2020-10-02] MEDS: LOSARTAN 25 MG (COZAAR) TAB PO SCH ×2 (08:54→22:05)
[2020-10-02] MEDS: GABAPENTIN 300 MG (NEURONTIN) CAP PO SCH ×4 (08:54→22:07)
[2020-10-02] MEDS: polyethylene glycoL POWDER 17 GM (MIRALAX) PACK PO SCH (08:54)
[2020-10-02] MEDS: DULoxetine 30 MG (CYMBALTA) CAP PO SCH ×2 (08:54→22:04)
[2020-10-02] MEDS: cefTRIAXone 1,000 MG in WATER (STERILE) FOR INJECTION 10 ML IV SCH (09:03)
[2020-10-02] MEDS: AZITHROMYCIN INJECTION 500 MG in NS (IVPB) 250 ML IV SCH (09:03)
[2020-10-02] MEDS: BIVALIRUDIN INJECTION 250 MG in D5W 50 ML IVPB SOLUTION 45 ML IV SCH ×2 (09:23→20:16)
--- NOTE | 2020-10-02 09:29 | Cardiology Progress Note ---
Subjective Date Seen by Provider: Oct 02, 2020 Time Seen by Provider: 09:28 Subjective/Events-last exam We are seeing her due to sinus tachycardia among other issues. She states her breathing is improved. She denies chest discomfort, palpitations, or syncope. Her lower extremity edema is improving. Focused Exam Lactate Level 09/30/20 10:35: Lactic Acid Level 1.71 09/30/20 14:20: Lactic Acid Level 1.29 Time of Focused Exam: 11:53 Objective-Cardiology Exam Last Set of Vital Signs Vital Signs 10/02/20 07:38 Temp 36.3 Pulse 89 Resp 20 B/P (MAP) 110/67 (81) Pulse Ox 91 O2 Delivery High Flow N/C O2 Flow Rate 3.00 Capillary Refill : Less Than 3 Seconds I&O Intake and Output 10/01/20 23:59 Intake Total 1345 ml Output Total 500 ml Balance 845 ml Intake Oral 1080 ml IV Total 265 ml Output Urine Total 500 ml # Voids 3 General: Alert, Oriented X3, Cooperative, No Acute Distress HEENT: Atraumatic, EOMI Neck: Supple Lungs: Other (Diffusely decreased breath sounds with scattered wheezes bilaterally. Scattered rhonchi. No crackles appreciated.) Heart: Regular Rate, Normal S1, Normal S2, Other (2/6 systolic ejection murmur.) Abdomen: Normal Bowel Sounds, Soft, No Tenderness Extremities: No Clubbing Skin: No Rashes Neuro: Normal Speech, Cranial Nerves 3-12 NL Psych/Mental Status: Mental Status NL, Mood NL Results Lab Laboratory Tests 10/02/20 04:50 A/P-Cardiology Admission Diagnosis (1) Sinus tachycardia Status: Acute Assessment & Plan: This seems to have resolved. I suspect this was a reactive tachycardia due to her acute on chronic respiratory failure. (2) Acute on chronic respiratory failure with hypoxemia Status: Acute Assessment & Plan: Most likely due to her chronic obstructive pulmonary disease with possible superimposed pneumonia. She will be having a telemedicine pulmonary consultation today. The primary provider is managing antibiotics. This is going to require a multidisciplinary approach. (3) Pulmonary hypertension Status: Chronic Assessment & Plan: Most likely related to chronic obstructive pulmonary disease with superimposed pulmonary emboli. Hopefully, this will improve as the pulmonary emboli resolved. The possible pulmonary mass is in the process of being evaluated. (4) Essential hypertension Status: Chronic Assessment & Plan: Blood pressure is well controlled on the present combination of antihypertensive medications. He should be continued. (5) Pulmonary embolism Status: Acute Assessment & Plan: Her follow-up CT shows improvement in the pulmonary emboli. 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 Now she has thrombocytopenia of unclear etiology. Hematology is following the patient in this regard. HIT antibodies are pending. I took the liberty of changing her enoxaparin over to bivalirudin while we await the HIT antibodies. Hematology input appreciated. (6) Thrombocytopenia Status: Acute Assessment & Plan: As above, etiology unclear. This could be multifactorial but HIT is also in the differential diagnosis. Antibodies are pending. Hematology is following the patient as above. JOMAR RAO JR, MD Oct 02, 2020 09:29
--- NOTE | 2020-10-02 10:16 | Pulmonary Consultation ---
History of Present Illness History of Present Illness Date Seen by Provider: Oct 02, 2020 Time Seen by Provider: 09:45 Date of Admission History of Present Illness Ms. Morgan is a 55 year old female admitted via ED with multiple complains. 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 Pt also had increased cough dry, denied hemoptysis. Pt had no fever, chills or weight loss; denies mylagia or viral syndrome. Patient was admitted back in July of 2020 and was found to have bilat PE as well as COVID. At the time patient had a CT chest that confirmed was seen by Dr Meehan at [facility] on [facility]16/2020 for f/u of bilateral PE, more on the left side, right lower extremity DVT 08/2020, left upper lobe consolidation/pneumonia versus mass. Regarding her most recent diagnosis VTE/ COVID: she was admitted for the Covid pneumonia at [facility] and then transferred to [facility] for aggressive management as well as monoclonal antibody. She was found to have bilateral PE at [facility]. She was slowly getting better and was eventually discharged to home on oxygen and oral eliquis. Mid August 2020, developed right lower extremity DVT. Eliquis was changed to Levonox 90mg sq bid. At the time Plt count was normal. She saw Dr Meehan on 09/16/2020 for f/u of MELISSA lung mass and DVT/PE. Dr. Meehan decided to have f/u CT scan in 3-4 weeks and continue Lovenox. In the ED she was starte on antibiotics for CAP, steroids/ bronchodilators. Patient needed O2 3-5l. Allergies and Home Medications Allergies Coded Allergies: No Known Drug Allergies (Unverified , 07/27/18) Home Medications Albuterol Sulfate 6.7 Gm Hfa.aer.ad, 2 PUFF IH Q4H PRN for SHORTNESS OF BREATH, (Reported) Albuterol Sulfate 2.5 Mg/3 Ml Vial.neb, 3 ML NEB Q4H PRN for SHORTNESS OF BREATH, (Reported) Amitriptyline HCl 75 Mg Tablet, 75 MG PO HS, (Reported) Duloxetine HCl 60 Mg Capsule.dr, 120 MG PO 1800, (Reported) TAKES 2 (60MG) CAPS LAST FILLED 08-14-2020 #60/30 DAY SUPPLY Empagliflozin 10 Mg Tablet, 10 MG PO DAILY, (Reported) Enoxaparin Sodium 80 Mg/0.8 Ml Syringe, 80 MG SQ BID, (Reported) Fluticasone/Salmeterol 1 Each Blst.w.dev, 1 EACH IH BID, (Reported) Gabapentin 300 Mg Capsule, 300 MG PO 0800,1300 PRN for PAIN-BREAKTHROUGH, (Reported) Gabapentin 300 Mg Capsule, 600 MG PO HS, (Reported) TAKES 2 (300MG) CAPS Hydroxyzine HCl 25 Mg Tablet, 25-50 MG PO Q8H PRN for ANXIETY, (Reported) Melatonin 5 Mg Tablet, 5 MG PO HS, (Reported) Metformin HCl 500 Mg Tab.er.24h, 500 MG PO BID, (Reported) LAST FILLED 08-14-2020 #60/30 DAY SUPPLY Metoprolol Succinate 50 Mg Tab.er.24h, 50 MG PO HS, (Reported) Ondansetron HCl 8 Mg Tablet, 8 MG PO Q8H PRN for NAUSEA/VOMITING-1ST LINE, (Reported) Pantoprazole Sodium 40 Mg Tablet.dr, 40 MG PO DAILY, (Reported) LAST FILLED 04-18-2020 #90/90 DAY SUPPLY Polyethylene Glycol 3350 17 Gm Powd.pack, 17 GM PO DAILY PRN for CONSTIPATION- 2ND LINE, (Reported) Prednisone 20 Mg Tab, 40 MG PO DAILY, (Reported) FILLED 09-26-2020 #10/5 DAY SUPPLY TAKES 2 (20MG) TABS Past Medical/Social/Family Hx Patient Social History Marrital Status: single Employed/Student: unemployed Tobacco Use?: Yes Tobacco type used: Cigarettes Smoking Status: Current Everyday Smoker Use of E-Cig and/or Vaping dev: No Substance use?: No Alcohol Use?: No Pt stated abuse/neglect: No Immunizations Up To Date Influenza Vaccine Up-to-Date: Yes; Up-to-Date Hepatitis A: Yes Hepatitis B: Yes TB Skin Test: Positive Date of Pneumonia Vaccine: Apr 20, 2011 Current Status status: No status: No Advance Directives: No Communicates: Verbally Primary Language: Hungarian Preferred Spoken Language: Hungarian Is interpretation needed?: No Implanted or Applied Medical D: None Past Medical History Past Medical History 1. Hypertension 2. Hyperlipidemia 3. COPD 4. Tobaccoism 5. Depression/Anxiety Past Surgical History 1. Cholecystecomy 2. ORIF Rt. distal radius 3. Failed fixation right distal radius with grafting 4. Removal of plate and screws 2013 rt wrist 5. Total Hysterectomy Review of Systems Constitutional: see HPI EENTM: see HPI, blurred vision Respiratory: see HPI, cough, dyspnea on exertion, short of breath Sepsis Event Evaluation Height, Weight, BMI Height: 5'2.00" Weight: 186lbs. 0.0oz. 84.085234le; 30.91 BMI Method:Stated Exam Exam Patient acknowledged, consented, and participated in this virtual visit which was conducted using real time audio/video Vital Signs Date Time Temp Pulse Resp B/P (MAP) Pulse Ox O2 Delivery O2 Flow Rate FiO2 10/02/20 07:38 36.3 89 20 110/67 (81) 91 High Flow N/C 3.00 10/02/20 07:07 92 Nasal Cannula 4.00 10/02/20 07:00 82 10/02/20 04:10 36.4 82 21 106/63 (77) 94 High Flow N/C 3.00 10/02/20 01:00 96 10/01/20 23:32 36.6 92 20 111/68 (82) 97 High Flow N/C 3.00 10/01/20 21:53 109/67 (81) High Flow N/C 5.00 10/01/20 21:46 96 Nasal Cannula 5.00 10/01/20 21:00 95 Nasal Cannula 5.00 10/01/20 19:29 37.1 98 22 116/66 (83) 98 High Flow N/C 5.00 10/01/20 19:00 96 10/01/20 15:32 37.2 100 22 111/68 (82) 93 High Flow N/C 5.00 10/01/20 15:15 91 Nasal Cannula 5.00 10/01/20 13:01 99 16 125/97 (106) 94 High Flow N/C 5.00 10/01/20 12:29 93 I & O 10/02/20 07:00 Intake Total 1095 ml Balance 1095 ml Height & Weight Height: 5'2.00" Weight: 186lbs. 0.0oz. 84.065882rd; 30.91 BMI Method:Stated General Appearance: Anxious, Chronically ill HEENT: PERRL/EOMI, Normal ENT Inspection, Pharynx Normal, Moist Mucous Membranes Neck: Full Range of Motion, Normal Inspection, Non Tender Respiratory: Chest Non Tender, Lungs Clear, No Accessory Muscle Use, No Respiratory Distress, Decreased Breath Sounds Cardiovascular: Regular Rate, Rhythm, No Edema, No Gallop, No JVD, No Murmur, Normal Peripheral Pulses Capillary Refill: Less Than 3 Seconds Peripheral Pulses: 2+ Dorsalis Pedis (R), 2+ Left Dors-Pedis (L) Extremity: Normal Capillary Refill, Normal Inspection, Normal Range of Motion, Non Tender, No Calf Tenderness, No Pedal Edema, Pedal Edema Neurologic/Psychiatric: Alert, Oriented x3, No Motor/Sensory Deficits, Normal Mood/Affect Skin: Normal Color, Warm/Dry Lymphatic: No Adenopathy Results Lab Laboratory Tests 09/30/20 09:40 10/01/20 04:05 10/02/20 04:50 Assessment/Plan Assessment/Plan Acute hypoxemic resp failure: -multifactorial: PE/ MELISSA atelectasis/ left hilar mass/ left lung volume loss/ CAP/ COPD exacerbation -suspect underlying RONA -recommend establishing short term and [place] goals in terms of plan of care: Short term goals: =home o2 eval prior to dc =short course abx =add LAMA to the outpatient maintenance regimen =smoking cessation =VTE continue curent managment 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 =suspect RONA based on body hx as well as history of tiredness/ napping =outpatient PFT. dw patient in details via iPAD/ auscultation occured voa EK chart review dw Thank you for including us in the care of the patient AMITA WORKMAN MD Oct 02, 2020 10:16
[2020-10-02 13:00] VITALS: BP 96/60
[2020-10-02 16:55] VITALS: BP 117/71
[2020-10-02 20:19] VITALS: BP 132/76
[2020-10-02] MEDS: MELATONIN 3 MG TABLET PO SCH (22:04)
[2020-10-02] MEDS: meTOproloL SUCCINATE 50 MG (TOPROL XL) TAB PO SCH (22:04)
[2020-10-02] MEDS: AMITRIPTYLINE 25 MG (ELAVIL) TAB PO SCH (22:05)
[2020-10-03] VITALS (18 sets, daily range): BP systolic 97–145; BP diastolic 47–85
[2020-10-03 03:37] LABS: BASOPHILS # (AUTO) 0.1 10^3/uL (0.0-0.1); BASOPHILS % (AUTO) 1 % (0-10); EOSINOPHILS # (AUTO) 2.4 10^3/uL (0.0-0.3); EOSINOPHILS % (AUTO) 17 % (0-10); HEMATOCRIT 30 % (35-52); HEMOGLOBIN 9.1 g/dL (11.5-16.0); LYMPHOCYTES # (AUTO) 2.2 10^3/uL (1.0-4.0); LYMPHOCYTES % (AUTO) 15 % (12-44); MEAN CORPUSCULAR HEMOGLOBIN 24 pg (25-34); MEAN CORPUSCULAR HGB CONC 30 g/dL (32-36); MEAN CORPUSCULAR VOLUME 80 fL (80-99); MONOCYTES # (AUTO) 0.6 10^3/uL (0.0-1.0); MONOCYTES % (AUTO) 4 % (0-12); NEUTROPHILS # (AUTO) 8.9 10^3/uL (1.8-7.8); NEUTROPHILS % (AUTO) 62 % (42-75); PLATELET COUNT 43 10^3/uL (130-400); WHITE BLOOD COUNT 14.4 10^3/uL (4.3-11.0)
[2020-10-03 03:49] LABS: ALBUMIN 2.7 GM/DL (3.2-4.5)
[2020-10-03 03:50] LABS: CHLORIDE 106 MMOL/L (98-107); POTASSIUM 3.9 MMOL/L (3.6-5.0); SODIUM 137 MMOL/L (135-145)
[2020-10-03 03:51] LABS: CALCIUM 8.4 MG/DL (8.5-10.1)
[2020-10-03 03:52] LABS: EOSINOPHILS % (MANUAL) 20 %; GLUCOSE 134 MG/DL (70-105); LYMPHOCYTES % (MANUAL) 24 %; MICROCYTOSIS SLIGHT; MONOCYTES % (MANUAL) 6 %; NEUTROPHILS % (MANUAL) 50 %; TOTAL PROTEIN 5.5 GM/DL (6.4-8.2)
[2020-10-03 03:53] LABS: CARBON DIOXIDE 20 MMOL/L (21-32)
[2020-10-03 03:54] LABS: BILIRUBIN,TOTAL 0.3 MG/DL (0.1-1.0)
[2020-10-03 03:55] LABS: ALKALINE PHOSPHATASE 107 U/L (40-136)
[2020-10-03 03:56] LABS: CREATININE SERUM 0.83 MG/DL (0.60-1.30); GFR ESTIMATED > 60
[2020-10-03 03:57] LABS: BUN/CREATININE RATIO 12
[2020-10-03 03:58] LABS: ALANINE AMINOTRANSFERASE 12 U/L (0-55)
[2020-10-03 04:02] LABS: FIBRIN DEGRADATION PRODUCTS 16.82 UG/ML (0.00-0.49); INR 1.4 (0.8-1.4); PROTHROMBIN TIME PATIENT 17.9 SEC (12.2-14.7)
[2020-10-03] MEDS: POTASSIUM CL 10MEQ/50ML IVPB 50 ML IV SCH (06:05)
[2020-10-03] MEDS: KCL 20 MEQ TAB (K-DUR) PO SCH (06:06)
[2020-10-03] MEDS: MAGNESIUM 1 GM/100 ML IVPB 100 ML IV SCH (06:06)
[2020-10-03] MEDS: inSUlin (REGULAR) HUMAN 1 UNIT/0.01 ML (CHARGE PER UNIT) SC SCH ×4 (06:06→21:37)
--- NOTE | 2020-10-03 06:13 | Progress Note - Hospitalist ---
Subjective HPI/CC On Admission Date Seen by Provider: Oct 03, 2020 Time Seen by Provider: 09:00 Subjective/Events-last exam Pt still having some difficulty breathing Transferring to the ICU for closer eye on clinical status Very fatigued Coarse breath sounds noted PLT count 43,000 IV antibiotics and oxygen maintained Will need BiPAP Will check ABG Spoke to Dr Meehan and she may need transfer to [facility] Review of Systems General: Fatigue, Malaise Pulmonary: Dyspnea Focused Exam Lactate Level Time of Focused Exam: 11:53 Objective Exam Vital Signs Vital Signs Date Time Temp Pulse Resp B/P (MAP) Pulse Ox O2 Delivery O2 Flow Rate FiO2 10/04/20 01:00 80 10/03/20 23:00 15 122/74 (90) 97 High Flow N/C 10.00 10/03/20 20:09 35.4 Capillary Refill : Less Than 3 Seconds General Appearance: No Apparent Distress, WD/WN, Chronically ill Respiratory: No Accessory Muscle Use, No Respiratory Distress, Crackles, Decreased Breath Sounds, Wheezing Cardiovascular: Regular Rate, Rhythm Neurologic/Psychiatric: Alert, Oriented x3 Results/Procedures Lab Laboratory Tests 10/04/20 04:00 Patient resulted labs reviewed. Assessment/Plan Assessment and Plan Assess & Plan/Chief Complaint Assessment: Acute respiratory failure Hyperglycemia Recent pulmonary embolism Acute pneumonia Smoker Lung mass DVT on Eliquis Thrombocytopenia Hypertension Hyperlipidemia Splenic infarct Plan: Appreciate cardiology Echo IV antibiotics CT of chest and abdomen Tissue biopsy if possible per [facility] or CT-guided needle biopsy 10/02/2020: Appreciate pulmonology Appreciate cardiology Appreciate oncology Appreciate radiology Continue treatment plan Must await platelet count to return to 100k for bronchoscopy and CT-guided biopsy is not an option 10/03/20: ICU move Monitor platelets [facility] transfer? Appreciate all consultants Diagnosis/Problems Diagnosis/Problems (1) Acute on chronic respiratory failure with hypoxemia Status: Acute (2) Type 2 diabetes mellitus with complication Status: Chronic (3) Type 2 diabetes mellitus with hyperosmolar hyperglycemic state (HHS) Status: Acute (4) Acute kidney injury Status: Acute (5) Thrombocytopenia Status: Acute (6) Pulmonary hypertension Status: Chronic (7) History of pulmonary embolism Status: Chronic (8) Pneumonia Status: Acute Qualifiers: Pneumonia type: due to unspecified organism Laterality: left Lung location: unspecified part of lung Qualified Codes: J18.9 - Pneumonia, unspecified organism (9) Essential hypertension Status: Chronic (10) Cigarette smoker (11) Lung mass Status: Acute ERICKSON GUERRA DO Oct 03, 2020 06:13
--- NOTE | 2020-10-03 08:53 | Cardiology Progress Note ---
Subjective Date Seen by Provider: Oct 03, 2020 Time Seen by Provider: 08:49 Subjective/Events-last exam We were initially consulted for sinus tachycardia. Now I am continuing to follow her because of the potential intracardiac mass. Her breathing is improving. She denies chest discomfort, palpitations, syncope, or lower extremity edema. Focused Exam Lactate Level 09/30/20 10:35: Lactic Acid Level 1.71 09/30/20 14:20: Lactic Acid Level 1.29 Time of Focused Exam: 11:53 Objective-Cardiology Exam Last Set of Vital Signs Vital Signs 10/03/20 07:25 Temp 37.0 Pulse 89 Resp 22 B/P (MAP) 111/65 (80) Pulse Ox 90 O2 Delivery High Flow N/C O2 Flow Rate 7.00 I&O Intake and Output 10/03/20 00:00 Intake Total 760 ml Balance 760 ml Intake Oral 710 ml IV Total 50 ml # Voids 4 General: Alert, Oriented X3, Cooperative, No Acute Distress HEENT: Atraumatic, EOMI Neck: Supple Lungs: Other (Diffusely decreased breath sounds with scattered wheezes bilaterally. Scattered rhonchi. No crackles appreciated.) Heart: Regular Rate, Normal S1, Normal S2, Other (2/6 systolic ejection murmur.) Abdomen: Normal Bowel Sounds, Soft, No Tenderness Extremities: No Clubbing Skin: No Rashes Neuro: Normal Speech, Cranial Nerves 3-12 NL Psych/Mental Status: Mental Status NL, Mood NL Results Lab Laboratory Tests 10/03/20 03:00 A/P-Cardiology Admission Diagnosis (1) Acute on chronic respiratory failure with hypoxemia Status: Acute Assessment & Plan: Most likely due to her chronic obstructive pulmonary disease with possible superimposed pneumonia as well as the pulmonary emboli. (2) Pulmonary hypertension Status: Chronic Assessment & Plan: Most likely related to chronic obstructive pulmonary disease with superimposed pulmonary emboli. Hopefully, this will improve as the pulmon jesus emboli resolved. The possible pulmonary mass is in the process of being evaluated. (3) Pulmonary embolism Status: Acute Assessment & Plan: Her follow-up CT shows improvement in the pulmonary emboli. 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 Now she has thrombocytopenia of unclear etiology. Hematology is following the patient in this regard. HIT antibodies are pending and hopefully will be back today or tomorrow. I took the liberty of changing her enoxaparin over to bivalirudin while we await the HIT antibodies. Hematology input appreciated. (4) Essential hypertension Status: Chronic Assessment & Plan: Blood pressure is well controlled on the present combination of antihypertensive medications. He should be continued. (5) Thrombocytopenia Status: Acute Assessment & Plan: As above, etiology unclear. This could be multifactorial, but HIT is also in the differential diagnosis. Antibodies are pending. Hematology is following the patient as above. Continue bivalirudin for now. JOMAR RAO JR, MD Oct 03, 2020 08:53
[2020-10-03] MEDS: DULoxetine 30 MG (CYMBALTA) CAP PO SCH ×2 (08:55→21:38)
[2020-10-03] MEDS: GABAPENTIN 300 MG (NEURONTIN) CAP PO SCH ×4 (08:55→21:38)
[2020-10-03] MEDS: SENNA W/DOCUSATE (SENOKOT S) TABLET PO SCH ×2 (08:55→21:10)
[2020-10-03] MEDS: LOSARTAN 25 MG (COZAAR) TAB PO SCH ×2 (08:55→21:39)
[2020-10-03] MEDS: PANTOPRAZOLE 40 MG (PROTONIX) TAB PO SCH (08:55)
[2020-10-03] MEDS: cefTRIAXone 1,000 MG in WATER (STERILE) FOR INJECTION 10 ML IV SCH (08:56)
[2020-10-03] MEDS: AZITHROMYCIN INJECTION 500 MG in NS (IVPB) 250 ML IV SCH (08:56)
[2020-10-03] MEDS: polyethylene glycoL POWDER 17 GM (MIRALAX) PACK PO SCH (09:00)
[2020-10-03] MEDS: RT--FLUTICASONE/SALMETEROL 232-14 (AIRDUO RespiCLICK) IH SCH ×2 (09:12→21:14)
[2020-10-03] MEDS: UMECLIDINIUM BROMIDE (INCRUSE ELLIPTA) 7'S IH SCH (09:12)
[2020-10-03] MEDS: RT-ALBUTEROL SULF 2.5 MG/3 ML PRE-MIX VIAL INH SCH ×3 (09:12→21:14)
--- NOTE | 2020-10-03 09:19 | Pulmonary Progress Note ---
Subjective Date Seen by a Provider: Oct 03, 2020 Time Seen by a Provider: 09:00 Subjective/Events-last exam Pt still has dyspnea on exertion as she is walking to the bathroom. no cough; feels a little better compared with yesterday Sepsis Event Evaluation Height, Weight, BMI Height: 5'2.00" Weight: 186lbs. 0.0oz. 84.624187xw; 30.91 BMI Method:Stated Focused Exam Lactate Level 09/30/20 10:35: Lactic Acid Level 1.71 09/30/20 14:20: Lactic Acid Level 1.29 Time of Focused Exam: 11:53 Exam Exam Patient acknowledged, consented, and participated in this virtual visit which was conducted using real time audio/video Vital Signs Date Time Temp Pulse Resp B/P (MAP) Pulse Ox O2 Delivery O2 Flow Rate FiO2 10/03/20 07:25 37.0 89 22 111/65 (80) 90 High Flow N/C 7.00 10/03/20 07:00 85 10/03/20 04:00 83 19 101/56 (71) 92 High Flow N/C 10.00 10/03/20 02:22 94 High Flow N/C 8.00 10/03/20 01:00 98 10/03/20 00:12 98 19 116/66 (83) 96 High Flow N/C 10.00 10/02/20 22:15 103 21 92 High Flow N/C 10.00 10/02/20 21:47 94 High Flow N/C 12.00 10/02/20 21:00 High Flow N/C 8.00 10/02/20 20:28 90 Nasal Cannula 9.00 10/02/20 20:19 36.7 111 20 132/76 (94) 92 High Flow N/C 8.00 10/02/20 19:00 111 10/02/20 16:55 36.5 96 18 117/71 (86) 91 High Flow N/C 4.00 10/02/20 15:17 91 Nasal Cannula 4.00 10/02/20 13:00 35.7 85 20 96/60 (72) 95 High Flow N/C 4.00 10/02/20 12:39 80 I & O 10/03/20 07:00 Intake Total 710 ml Output Total 500 ml Balance 210 ml Height & Weight Height: 5'2.00" Weight: 186lbs. 0.0oz. 84.127353jp; 30.91 BMI Method:Stated General Appearance: No Apparent Distress, WD/WN, Chronically ill HEENT: PERRL/EOMI, Normal ENT Inspection, Pharynx Normal, Moist Mucous Membranes Neck: Full Range of Motion, Normal Inspection, Non Tender Respiratory: Lungs Clear, Decreased Breath Sounds Cardiovascular: Regular Rate, Rhythm Capillary Refill: Less Than 3 Seconds Peripheral Pulses: 2+ Dorsalis Pedis (R), 2+ Left Dors-Pedis (L) Gastrointestinal: non tender Extremity: Normal Capillary Refill, Normal Inspection, Normal Range of Motion, Non Tender, No Calf Tenderness, No Pedal Edema, Pedal Edema Neurologic/Psychiatric: Alert, Oriented x3, Depressed Affect Skin: Normal Color, Warm/Dry Lymphatic: No Adenopathy Results Lab Laboratory Tests 10/02/20 04:50 10/03/20 03:00 Assessment/Plan Assessment/Plan 1. Acute hypoxemic resp failure, multifactorial: 1.1 COPD exacerbation -ICS/LAMA/LABA for maintenance -DILEEP for rescue -home O2 needs to be asses -nocturnal BIPAP 01/22 for possible overlap sdr -consder PT/outpatient pulm rehab 1.2 PE on therapy per Hem onc -HIT work up pending/ PLT stable 2. Cardiac mass -we will follow in conjunction with cards and pcp Pt was visualized via IPAD; answered all her questions; dw bed side AMITA BURGESS MD Oct 03, 2020 09:19
[2020-10-03 11:24] LABS: ABG BASE EXCESS -1.3 MMOL/L (-2.5-2.5); ABG OXYGEN SATURATION 95 % (94-100); ABG PCO2 35 MMHG (35-45); ABG PH 7.42 (7.37-7.43); ABG PO2 69 MMHG (79-93); ABG TCO2 23.6 MMOL/L (21.0-31.0)
[2020-10-03 11:26] LABS: ALLENS TEST YES-POS; INSPIRED O2 7; PATIENT TEMP 36.8; VENTILATOR NO
[2020-10-03] MEDS ORDERED: methylPREDNISolone 40 MG/ML (Solu-MEDROL) VIAL IV ONE (15:45)
--- NOTE | 2020-10-03 15:47 | Progress Note ---
Standard Progress Note Progress Notes/Assess & Plan Date Seen by a Provider: Oct 03, 2020 Time Seen by a Provider: 15:37 Progress/Assessment & Plan 55-year-old female with Covid pneumonia and respiratory failure in July 2020 requiring prolonged hospitalization at [facility]. Patient also developed bilateral PE and was on anticoagulation with Eliquis. Soon after discharge she developed lower extremity swelling and was found to have DVT. Anticoagulation was changed to Lovenox 90 mg subcu twice daily. Patient admitted to the hospital recently with increasing weakness and shortness of breath. Noted to have new onset thrombocytopenia and Lovenox discontinued. Javier lawrence is on Angiomax IV. Repeat CT scans showed continued left upper lobe atelectasis and cannot rule out a mass. Also has evidence of splenic as well as renal infarcts. Previously noted bilateral pulmonary emboli has improved. Patient continues to be more short of breath and requiring increased amount of oxygen to maintain saturations. Patient was moved to ICU today for higher level of care. Heparin-induced antibody testing pending. Initial DIC panel done today morning showed normal fibrinogen with significantly elevated D-dimer. Peripheral smear with no significant schistocytes. Increased immature platelet fraction by CBC and pathology evaluation indicating increased peripheral destruction. Unable to do bronchoscopy or biopsy with low platelet count. Discussed case with Dr. Esquivel. Probably most of her symptoms are related to Covid pneumonia/vasculopathy. We will start the patient on Solu-Medrol 2 mg/kg IV bolus followed by 1 mg/kg IV every 6 hours. Repeat lab work including DIC panel and LDH in a.m. Will follow patient with you. Focused Exam Time of Focused Exam: 11:53 RONAK HERNANDEZ Oct 03, 2020 15:47
[2020-10-03] MEDS: meTOproloL SUCCINATE 50 MG (TOPROL XL) TAB PO SCH (21:38)
[2020-10-03] MEDS: methylPREDNISolone 40 MG/ML (Solu-MEDROL) VIAL IV SCH (21:38)
[2020-10-03] MEDS: AMITRIPTYLINE 25 MG (ELAVIL) TAB PO SCH (21:38)
[2020-10-03] MEDS: MELATONIN 3 MG TABLET PO SCH (21:39)
[2020-10-04] VITALS (12 sets, daily range): BP systolic 97–135; BP diastolic 50–84
[2020-10-04 04:26] LABS: EOSINOPHILS % (AUTO) 1 % (0-10); HEMOGLOBIN 9.6 g/dL (11.5-16.0); MEAN CORPUSCULAR VOLUME 78 fL (80-99)
[2020-10-04 04:28] LABS: BASOPHILS % (AUTO) 0 % (0-10); EOSINOPHILS # (AUTO) 0.1 10^3/uL (0.0-0.3); HEMATOCRIT 31 % (35-52); LYMPHOCYTES # (AUTO) 0.9 10^3/uL (1.0-4.0); LYMPHOCYTES % (AUTO) 7 % (12-44); MEAN CORPUSCULAR HEMOGLOBIN 25 pg (25-34); MEAN CORPUSCULAR HGB CONC 31 g/dL (32-36); MONOCYTES # (AUTO) 0.1 10^3/uL (0.0-1.0); MONOCYTES % (AUTO) 1 % (0-12); NEUTROPHILS # (AUTO) 11.2 10^3/uL (1.8-7.8); NEUTROPHILS % (AUTO) 90 % (42-75); PLATELET COUNT 55 10^3/uL (130-400); WHITE BLOOD COUNT 12.5 10^3/uL (4.3-11.0)
[2020-10-04 04:49] LABS: FIBRIN DEGRADATION PRODUCTS 19.56 UG/ML (0.00-0.49); INR 1.5 (0.8-1.4); PROTHROMBIN TIME PATIENT 18.5 SEC (12.2-14.7)
[2020-10-04] MEDS: methylPREDNISolone 40 MG/ML (Solu-MEDROL) VIAL IV SCH ×2 (04:55→08:31)
[2020-10-04 05:04] LABS: ALANINE AMINOTRANSFERASE 15 U/L (0-55); ALBUMIN 2.9 GM/DL (3.2-4.5); ALKALINE PHOSPHATASE 110 U/L (40-136); BILIRUBIN,TOTAL 0.3 MG/DL (0.1-1.0); BUN/CREATININE RATIO 17; CALCIUM 8.7 MG/DL (8.5-10.1); CARBON DIOXIDE 22 MMOL/L (21-32); CHLORIDE 104 MMOL/L (98-107); CREATININE SERUM 0.86 MG/DL (0.60-1.30); GFR ESTIMATED > 60; GLUCOSE 283 MG/DL (70-105); MAGNESIUM 1.8 MG/DL (1.6-2.4); PHOSPHORUS 4.8 MG/DL (2.3-4.7); SODIUM 136 MMOL/L (135-145); TOTAL PROTEIN 6.2 GM/DL (6.4-8.2)
--- NOTE | 2020-10-04 05:55 | Progress Note - Hospitalist ---
Subjective HPI/CC On Admission Date Seen by Provider: Oct 04, 2020 Focused Exam Time of Focused Exam: 11:53 Objective Exam Vital Signs Vital Signs Date Time Temp Pulse Resp B/P (MAP) Pulse Ox O2 Delivery O2 Flow Rate FiO2 10/04/20 10:00 96 25 123/77 (92) 89 High Flow N/C 8.00 10/04/20 09:22 36.5 Capillary Refill : Less Than 3 Seconds Results/Procedures Lab Laboratory Tests 10/04/20 04:00 Patient resulted labs reviewed. Assessment/Plan Assessment and Plan Assess & Plan/Chief Complaint Assessment: Acute respiratory failure Hyperglycemia Recent pulmonary embolism Acute pneumonia Smoker Lung mass DVT on Eliquis Thrombocytopenia Hypertension Hyperlipidemia Splenic infarct Plan: Appreciate cardiology Echo IV antibiotics CT of chest and abdomen Tissue biopsy if possible per [facility] or CT-guided needle biopsy 10/02/2020: Appreciate pulmonology Appreciate cardiology Appreciate oncology Appreciate radiology Continue treatment plan Must await platelet count to return to 100k for bronchoscopy and CT-guided biopsy is not an option 10/03/20: ICU move Monitor platelets [facility] transfer? Appreciate all consultants Diagnosis/Problems Diagnosis/Problems (1) Acute on chronic respiratory failure with hypoxemia Status: Acute (2) Type 2 diabetes mellitus with complication Status: Chronic (3) Type 2 diabetes mellitus with hyperosmolar hyperglycemic state (HHS) Status: Acute (4) Acute kidney injury Status: Acute (5) Thrombocytopenia Status: Acute (6) Pulmonary hypertension Status: Chronic (7) History of pulmonary embolism Status: Chronic (8) Pneumonia Status: Acute Qualifiers: Pneumonia type: due to unspecified organism Laterality: left Lung location: unspecified part of lung Qualified Codes: J18.9 - Pneumonia, unspecified organism (9) Essential hypertension Status: Chronic (10) Cigarette smoker (11) Lung mass Status: Acute ERICKSON GUERRA DO Oct 04, 2020 05:55
[2020-10-04] MEDS ORDERED: KCL 20 MEQ TAB (K-DUR) PO SCH (06:00)
[2020-10-04] MEDS ORDERED: MAGNESIUM 1 GM/100 ML IVPB 100 ML IV SCH (06:00)
[2020-10-04] MEDS ORDERED: POTASSIUM CL 10MEQ/50ML IVPB 50 ML IV SCH (06:00)
[2020-10-04] MEDS: inSUlin (REGULAR) HUMAN 1 UNIT/0.01 ML (CHARGE PER UNIT) SC SCH ×2 (06:43→11:14)
[2020-10-04] MEDS: BIVALIRUDIN INJECTION 250 MG in D5W 50 ML IVPB SOLUTION 45 ML IV SCH (08:22)
[2020-10-04] MEDS: cefTRIAXone 1,000 MG in WATER (STERILE) FOR INJECTION 10 ML IV SCH (08:30)
[2020-10-04] MEDS: DULoxetine 30 MG (CYMBALTA) CAP PO SCH (08:31)
[2020-10-04] MEDS: PANTOPRAZOLE 40 MG (PROTONIX) TAB PO SCH (08:31)
[2020-10-04] MEDS: LOSARTAN 25 MG (COZAAR) TAB PO SCH (08:31)
[2020-10-04] MEDS: GABAPENTIN 300 MG (NEURONTIN) CAP PO SCH ×2 (08:31→12:57)
[2020-10-04] MEDS: SENNA W/DOCUSATE (SENOKOT S) TABLET PO SCH (08:36)
[2020-10-04] MEDS: polyethylene glycoL POWDER 17 GM (MIRALAX) PACK PO SCH (08:36)
[2020-10-04] MEDS: AZITHROMYCIN INJECTION 500 MG in NS (IVPB) 250 ML IV SCH (09:19)
[2020-10-04] MEDS: RT-ALBUTEROL SULF 2.5 MG/3 ML PRE-MIX VIAL INH SCH ×2 (09:30→15:22)
[2020-10-04] MEDS: RT--FLUTICASONE/SALMETEROL 232-14 (AIRDUO RespiCLICK) IH SCH (09:30)
[2020-10-04] MEDS: UMECLIDINIUM BROMIDE (INCRUSE ELLIPTA) 7'S IH SCH (09:30)
--- NOTE | 2020-10-04 10:40 | Cardiology Progress Note ---
Subjective Date Seen by Provider: Oct 04, 2020 Time Seen by Provider: 10:39 Subjective/Events-last exam We are seeing her due to sinus tachycardia and pulmonary hypertension. Last evening she dropped her oxygen saturation and had to be moved from the stepdown unit to the ICU. She is now sitting up in bed on nasal cannula oxygen and satting well. She did feel short of breath when this happened. Her breathing is improved today. She denies chest pain, palpitations, syncope, or lower extremity edema. Focused Exam Time of Focused Exam: 11:53 Objective-Cardiology Exam Last Set of Vital Signs Vital Signs 10/04/20 10/04/20 10/04/20 10/04/20 06:00 09:22 09:31 09:35 Temp 36.5 Pulse 84 Resp 25 B/P (MAP) 116/69 (85) Pulse Ox 95 O2 Delivery High Flow N/C O2 Flow Rate 8.00 Capillary Refill : Less Than 3 Seconds I&O Intake and Output 10/04/20 00:00 Intake Total 780 ml Output Total 1525 ml Balance -745 ml Intake Oral 780 ml Output Urine Total 1525 ml # Voids 1 General: Alert, Oriented X3, Cooperative, No Acute Distress HEENT: Atraumatic, EOMI Neck: Supple Lungs: Other (Diffusely decreased breath sounds with scattered wheezes bilaterally. Scattered rhonchi. No crackles appreciated.) Heart: Regular Rate, Normal S1, Normal S2, Other (2/6 systolic ejection murmur.) Abdomen: Normal Bowel Sounds, Soft, No Tenderness Extremities: No Clubbing Skin: No Rashes Neuro: Normal Speech, Cranial Nerves 3-12 NL Psych/Mental Status: Mental Status NL, Mood NL Results Lab Laboratory Tests 10/04/20 04:00 A/P-Cardiology Admission Diagnosis (1) Acute on chronic respiratory failure with hypoxemia Status: Acute Assessment & Plan: Most likely due to her chronic obstructive pulmonary disease with possible superimposed pneumonia as well as the pulmonary emboli. The primary hospitalist has contacted to the [facility] to see about a possible transfer. (2) Pulmonary hypertension Status: Chronic Assessment & Plan: Most likely related to chronic obstructive pulmonary disease with superimposed pulmonary emboli. Hopefully, this will improve as the pulmonary emboli resolved. The possible pulmonary mass is in the process of being evaluated. This may require transfer to another facility for biopsy. (3) Pulmonary embolism Status: Acute Assessment & Plan: Her follow-up CT shows improvement in the pulmonary emboli. 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 Now she has thrombocytopenia of unclear etiology. Hematology is following the patient in this regard. HIT antibodies are pending and hopefully will be back today or tomorrow. I took the liberty of changing her enoxaparin over to bivalirudin while we await the HIT antibodies. Hematology input appreciated. (4) Thrombocytopenia Status: Acute Assessment & Plan: As above, etiology unclear. This could be multifactorial, b ut HIT is also in the differential diagnosis. Antibodies are pending. Hematology is following the patient as above. Continue bivalirudin for now. (5) Essential hypertension Status: Chronic Assessment & Plan: Blood pressure is well controlled on the present combination of antihypertensive medications. These should be continued. JOMAR RAO JR, MD Oct 04, 2020 10:40
--- NOTE | 2020-10-04 11:07 | Pulmonary Progress Note ---
Subjective Date Seen by a Provider: Oct 04, 2020 Time Seen by a Provider: 11:06 Sepsis Event Evaluation Height, Weight, BMI Height: 5'2.00" Weight: 186lbs. 0.0oz. 84.729176pd; 30.91 BMI Method:Stated Focused Exam Time of Focused Exam: 11:53 Exam Exam Patient acknowledged, consented, and participated in this virtual visit which was conducted using real time audio/video Vital Signs Date Time Temp Pulse Resp B/P (MAP) Pulse Ox O2 Delivery O2 Flow Rate FiO2 10/04/20 09:35 High Flow N/C 8.00 10/04/20 09:31 95 High Flow N/C 8.00 10/04/20 09:22 36.5 10/04/20 08:00 High Flow N/C 10.00 10/04/20 07:20 High Flow N/C 10.00 10/04/20 06:00 84 25 116/69 (85) 98 NIV Bilevel 50.00 10/04/20 05:00 77 15 127/74 (91) 96 NIV Bilevel 50.00 10/04/20 04:59 76 19 93 50.00 10/04/20 04:27 NIV Bilevel 50.00 10/04/20 04:00 81 15 116/84 (95) 95 High Flow N/C 10.00 10/04/20 03:00 79 34 120/78 (92) 97 High Flow N/C 10.00 10/04/20 02:00 71 12 129/73 (91) 99 High Flow N/C 10.00 10/04/20 01:00 80 10/04/20 01:00 80 10 135/71 (92) 97 High Flow N/C 10.00 10/04/20 00:00 79 16 97/71 (80) 93 High Flow N/C 10.00 10/03/20 23:00 79 15 122/74 (90) 97 High Flow N/C 10.00 10/03/20 22:30 High Flow N/C 10.00 10/03/20 22:00 85 17 100/47 (64) 95 High Flow N/C 7.00 10/03/20 21:14 97 Nasal Cannula 10.00 10/03/20 21:00 84 15 129/77 (94) 98 High Flow N/C 7.00 10/03/20 21:00 High Flow N/C 10.00 10/03/20 20:09 35.4 10/03/20 20:00 92 17 139/77 (97) 92 High Flow N/C 7.00 10/03/20 19:00 91 10/03/20 19:00 91 18 145/85 (105) 96 High Flow N/C 7.00 10/03/20 18:00 98 125/79 (94) 90 High Flow N/C 7.00 10/03/20 17:00 96 18 112/64 (80) 93 High Flow N/C 7.00 10/03/20 16:00 98 34 134/78 (96) 93 High Flow N/C 7.00 10/03/20 16:00 36.5 10/03/20 15:49 99 35 131/70 (90) 92 High Flow N/C 7.00 10/03/20 14:00 95 22 123/67 (85) 89 High Flow N/C 7.00 10/03/20 13:16 92 Nasal Cannula 10.00 10/03/20 13:00 96 25 122/69 (86) High Flow N/C 7.00 10/03/20 12:37 95 10/03/20 12:00 90 20 97/47 (64) 94 High Flow N/C 7.00 10/03/20 11:58 36.6 I & O 10/04/20 07:00 Intake Total 780 ml Output Total 1325 ml Balance -545 ml Height & Weight Height: 5'2.00" Weight: 186lbs. 0.0oz. 84.483527ai; 30.91 BMI Method:Stated General Appearance: No Apparent Distress, WD/WN, Chronically ill HEENT: PERRL/EOMI, Normal ENT Inspection, Pharynx Normal, Moist Mucous Membranes Neck: Full Range of Motion, Normal Inspection, Non Tender Respiratory: No Accessory Muscle Use, No Respiratory Distress, Crackles, Decreased Breath Sounds, Wheezing Cardiovascular: Regular Rate, Rhythm Capillary Refill: Less Than 3 Seconds Peripheral Pulses: 2+ Dorsalis Pedis (R), 2+ Left Dors-Pedis (L) Gastrointestinal: non tender Extremity: Normal Capillary Refill, Normal Inspection, Normal Range of Motion, Non Tender, No Calf Tenderness, No Pedal Edema, Pedal Edema Neurologic/Psychiatric: Alert, Oriented x3 Skin: Normal Color, Warm/Dry Lymphatic: No Adenopathy Results Lab Laboratory Tests 10/03/20 03:00 10/04/20 04:00 Assessment/Plan Assessment/Plan (Tele-ICU Physician , Progress Note ) Available chart/ vitals / labs / Images reviewed Video assessment done using teleICU camera, rest of exam as per RN Discussed with RN Events overnight : tolerated BIPAP well Afebrile 8L o2 hemodynamically stable, no pressors, I/O = neg 700 Drips: bivalirudin Consultants: hem shayy wise Hospital course: 10/01 admitted 10/03 transferred to ICU for closer observation , placed on BIPAP for night use , 8-10L o2 A/P Acute hypoxemic resp failure, multifactorial - nocturnal BIPAP 01/22 for possible overlap sdr - steroids IV , abx , Tx for PE - recheck cxr today for possinle increasing PNA and decrease steroids IV AECOPD exacerbation - steroid IV - decreast to 60 q 6 today -ICS/LAMA/LABA for maintenance -DILEEP for rescue (on d/c -home O2 needs to be asses -consder PT/outpatient pulm rehab) Bilateral PE ,on therapy per Hem onc - repeated CT shows improvement in the pulmonary emboli (she had recurrent deep venous thrombosis on apixaban. -HIT work up pending/ PLT stable MELISSA mass - as per RN - he/onc are planning transfer for futire w/up and Bx - improving as per imaging s/p Covid pneumonia 08/08/2020. Lines : , (Central Line Necessity Reviewed) Nutrition: po Analgesia: na Anxiety/ delirium na VTE Prophylaxis: as above Stress Ulcer Prophylaxis: PPI ( on steroids ) Glycemic Control: + Plans in collaboration with bedside consultants and IM MDs. Discussed with RN to reach out if any questions or concerns A total of 37 minutes of critical care time was devoted to this patient today, required to treat and/or prevent further deterioration of critical care condition ( as above ) . [id number] DYLAN SORIA MD Oct 04, 2020 11:07
[2020-10-04] MEDS ORDERED: guaiFENesin/DM (ROBITUSSIN DM) 10 ML UDC PO PRN (11:15)
[2020-10-04] MEDS ORDERED: LOSA25TA41 PO (11:17)
[2020-10-04] MEDS ORDERED: [UNRECOGNIZED DRUG - CODE] IV (11:17)
[2020-10-04] MEDS ORDERED: CLON1TAB13 PO (11:17)
[2020-10-04] MEDS ORDERED: ACHD5005 PO (11:17)
[2020-10-04] MEDS ORDERED: UMEC62.5 IH (11:17)
[2020-10-04] MEDS ORDERED: METH40VI2 IV (11:17)
[2020-10-04] MEDS ORDERED: INSU100V3 SC (11:17)
--- NOTE | 2020-10-04 11:17 | Discharge Summary ---
Discharge Summary Hospital Course Was the Problem List Reviewed?: Yes Problems/Dx: (1) Acute on chronic respiratory failure with hypoxemia Status: Acute (2) Pulmonary hypertension Status: Chronic (3) Pulmonary embolism Status: Acute (4) Essential hypertension Status: Chronic (5) Thrombocytopenia Status: Acute Hospital Course Date of Admission: Sep 30, 2020 at 11:50 Admission Diagnosis : Family Physician/Provider: Center/[facility] [place] Date of Discharge: 10/04/20 Discharge Diagnosis: Acute on chronic respiratory failure, lung mass, pulmonary embolism, subacute DVT, thrombocytopenia precluding bronchoscopy, post Covid syndrome Hospital Course: Patient had a complicated hospital course prior to transferring to higher level care to . She is post Covid and had been at in July and she once again had increased work of breathing and wheezing found to have pneumonia placed on appropriate antibiotics but lung mass on CT scan noted radiology was unable to evaluate a plan for biopsy and platelets were too low less than 100,[address] Hernandez was consulted who recommended tissue biopsy being done at and graciously accepted the patient. Labs and Pending Lab Test: Laboratory Tests 10/03/20 15:29: Glucometer 170H 10/03/20 20:17: Glucometer 252H 10/04/20 04:00: White Blood Count 12.5H, Red Blood Count 3.92, Hemoglobin 9.6L, Hematocrit 31L, Mean Corpuscular Volume 78L, Mean Corpuscular Hemoglobin 25, Mean Corpuscular Hemoglobin Concent 31L, Red Cell Distribution Width 19.4H, Platelet Count 55L, Mean Platelet Volume , Immature Granulocyte % (Auto) 1, Neutrophils (%) (Auto) 90H, Lymphocytes (%) (Auto) 7L, Monocytes (%) (Auto) 1, Eosinophils (%) (Auto) 1, Basophils (%) (Auto) 0, Neutrophils # (Auto) 11.2H, Lymphocytes # (Auto) 0.9L , Monocytes # (Auto) 0.1, Eosinophils # (Auto) 0.1, Basophils # (Auto) 0.0, Immature Granulocyte # (Auto) 0.1, Percent Immature Platelet Fraction 12.8H, Prothrombin Time 18.5H, INR Comment 1.5H, Activated Partial Thromboplast Time 105H, Fibrinogen 381, D-Dimer 19.56H, Sodium Level 136, Potassium Level 4.0, Chloride Level 104, Carbon Dioxide Level 22, Anion Gap 10, Blood Urea Nitrogen 15, Creatinine 0.86, Estimat Glomerular Filtration Rate > 60, BUN/Creatinine Ratio 17, Glucose Level 283H, Calcium Level 8.7, Corrected Calcium 9.6, Phosphorus Level 4.8H, Magnesium Level 1.8, Total Bilirubin 0.3, Aspartate Amino Transf (AST/SGOT) 15, Alanine Aminotransferase (ALT/SGPT) 15, Alkaline Phosphatase 110, Lactate Dehydrogenase 843H, Total Protein 6.2L, Albumin 2.9L 10/04/20 10:15: Activated Partial Thromboplast Time 48H 10/04/20 11:10: Glucometer 274H Microbiology 09/30/20 Blood Culture - Preliminary, Resulted No growth 09/30/20 Urine Culture - Final, Complete NO GROWTH Home Meds Active Humulin R (Insulin Regular, Human) 1,000 Units/10 Ml Soln 0 Unit SC ACHS 7 Days Solu-Medrol 40 mg Vial (Methylprednisolone Sod Succ/Pf) 40 Mg/1 Ml Vial 60 Mg IV Q6H 7 Days Clonazepam 1 Mg Tablet 1 Mg PO DAILY PRN 30 Days HYDROcodone/APAP 5 MG/325 MG TAB (Acetaminophen/Hydrocodone Bitart) 1 Tab Tab 1 Ea PO Q4H PRN 7 Days Losartan Potassium 25 Mg Tablet 25 Mg PO BID 30 Days Angiomax (Bivalirudin) 250 Mg Vial 250 Mg IV UD 5 Days Incruse Ellipta (Umeclidinium [place]) 62.5 Mcg Blst.w.dev 0 Inh IH DAILY@0800 30 Days Reported Metoprolol Succinate 50 Mg Tab.er.24h 50 Mg PO HS Neurontin (Gabapentin) 300 Mg Capsule 600 Mg PO HS TAKES 2 (300MG) CAPS Neurontin (Gabapentin) 300 Mg Capsule 300 Mg PO 0800,1300 PRN Albuterol Sulfate 2.5 Mg/3 Ml Vial.neb 3 Ml NEB Q4H PRN Ondansetron HCl 8 Mg Tablet 8 Mg PO Q8H PRN Melatonin 5 Mg Tablet 5 Mg PO HS Metformin HCl ER (Metformin HCl) 500 Mg Tab.er.24h 500 Mg PO BID LAST FILLED 08-14-2020 #60/30 DAY SUPPLY Amitriptyline HCl 75 Mg Tablet 75 Mg PO HS Hydroxyzine HCl 25 Mg Tablet 25-50 Mg PO Q8H PRN Jardiance (Empagliflozin) 10 Mg Tablet 10 Mg PO DAILY Enoxaparin Sodium 80 Mg/0.8 Ml Syringe 80 Mg SQ BID Prednisone 20 Mg Tab 40 Mg PO DAILY FILLED 09-26-2020 #10/5 DAY SUPPLY TAKES 2 (20MG) TABS Cymbalta (Duloxetine HCl) 60 Mg Capsule.dr 120 Mg PO 1800 TAKES 2 (60MG) CAPS LAST FILLED 08-14-2020 #60/30 DAY SUPPLY Miralax (Polyethylene Glycol 3350) 17 Gm Powd.pack 17 Gm PO DAILY PRN Advair 250-50 Diskus (Fluticasone/Salmeterol) 1 Each Blst.w.dev 1 Each IH BID Pantoprazole Sodium 40 Mg Tablet.dr 40 Mg PO DAILY LAST FILLED 04-18-2020 #90/90 DAY SUPPLY Proventil Hfa (Albuterol Sulfate) 6.7 Gm Hfa.aer.ad 2 Puff IH Q4H PRN Assessment/Pt Instructions [facility] transfer Discharge Planning: <30 minutes discharge planning Discharge Instructions Discharge Diet: No Restrictions Discharge Physical Examination Vital Signs Vital Signs Date Time Temp Pulse Resp B/P (MAP) Pulse Ox O2 Delivery O2 Flow Rate FiO2 10/04/20 10:00 96 25 123/77 (92) 89 High Flow N/C 8.00 10/04/20 09:22 36.5 General Appearance: No Apparent Distress, WD/WN Respiratory: Crackles, Decreased Breath Sounds Cardiovascular: Regular Rate, Rhythm Neurologic/Psychiatric: Alert, Oriented x3, No Motor/Sensory Deficits, Normal Mood/Affect Allergies: Coded Allergies: No Known Drug Allergies (Unverified , 07/27/18) Discharge Summary Date of Admission Sep 30, 2020 at 11:50 Date of Discharge Discharge Date: Oct 04, 2020 Admission Diagnosis Assessment: Acute respiratory failure Hyperglycemia Recent pulmonary embolism Acute pneumonia Smoker Lung mass DVT on Eliquis Thrombocytopenia Hypertension Hyperlipidemia Plan: Appreciate cardiology Echo IV antibiotics CT of chest and abdomen Tissue biopsy if possible per bronc or CT-guided needle biopsy Discharge Diagnosis Assessment: Acute respiratory failure Hyperglycemia Recent pulmonary embolism Acute pneumonia Smoker Lung mass DVT on Eliquis Thrombocytopenia Hypertension Hyperlipidemia Splenic infarct Plan: Appreciate cardiology Echo IV antibiotics CT of chest and abdomen Tissue biopsy if possible per bronc or CT-guided needle biopsy 10/02/2020: Appreciate pulmonology Appreciate cardiology Appreciate oncology Appreciate radiology Continue treatment plan Must await platelet count to return to 100k for bronchoscopy and CT-guided biopsy is not an option 10/03/20: ICU move Monitor platelets [facility] transfer? Appreciate all consultants (1) Acute on chronic respiratory failure with hypoxemia Status: Acute Assessment & Plan: Most likely due to her chronic obstructive pulmonary disease with possible superimposed pneumonia as well as the pulmonary emboli. (2) Pulmonary hypertension Status: Chronic Assessment & Plan: Most likely related to chronic obstructive pulmonary disease with superimposed pulmonary emboli. Hopefully, this will improve as the pulmonary emboli resolved. The possible pulmonary mass is in the process of being evaluated. (3) Pulmonary embolism Status: Acute Assessment & Plan: Her follow-up CT shows improvement in the pulmonary emboli. 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 Now she has thrombocytopenia of unclear etiology. Hematology is following the patient in this regard. HIT antibodies are pending and hopefully will be back today or tomorrow. I took the liberty of changing her enoxaparin over to bivalirudin while we await the HIT antibodies. Hematology input appreciated. (4) Essential hypertension Status: Chronic Assessment & Plan: Blood pressure is well controlled on the present combination of antihypertensive medications. He should be continued. (5) Thrombocytopenia Status: Acute Assessment & Plan: As above, etiology unclear. This could be multifactorial, but HIT is also in the differential diagnosis. Antibodies are pending. Hematology is following the patient as above. Continue bivalirudin for now. ERICKSON GUERRA DO Oct 04, 2020 11:17
[2020-10-04] MEDS ORDERED: methylPREDNISolone 40 MG/ML (Solu-MEDROL) VIAL IV SCH (15:45)
== END 2020-10-04 15:34 | disposition short-term general hospital (02) | DRG 871 ==
LOC: EDUNIT# 09:30 → ER 09:32 → CSD 11:50 → ICU 10-03 10:49
PROVIDERS: ADMIT Internal Medicine; ATTEND Internal Medicine
PROC: 5A09357 Assistance with Respiratory Ventilation, Less than 24 Consecutive Hours, Continuous Positive Airway Pressure (ICD-10-PCS; principal; 2020-10-04)
DX: A41.9 Sepsis, unspecified organism (principal); E11.00 Type 2 diabetes mellitus with hyperosmolarity without nonketotic hyperglycemic-hyperosmolar coma (NKHHC); J96.21 Acute and chronic respiratory failure with hypoxia; J18.9 Pneumonia, unspecified organism; I26.99 Other pulmonary embolism without acute cor pulmonale; N17.9 Acute kidney failure, unspecified; J44.1 Chronic obstructive pulmonary disease with (acute) exacerbation; J44.0 Chronic obstructive pulmonary disease with (acute) lower respiratory infection; I82.431 Acute embolism and thrombosis of right popliteal vein; I82.491 Acute embolism and thrombosis of other specified deep vein of right lower extremity; N28.0 Ischemia and infarction of kidney; D69.6 Thrombocytopenia, unspecified; I27.20 Pulmonary hypertension, unspecified; R91.8 Other nonspecific abnormal finding of lung field; B94.8 Sequelae of other specified infectious and parasitic diseases; F17.210 Nicotine dependence, cigarettes, uncomplicated; E78.00 Pure hypercholesterolemia, unspecified; I10 Essential (primary) hypertension; K21.9 Gastro-esophageal reflux disease without esophagitis; G25.81 Restless legs syndrome; M19.91 Primary osteoarthritis, unspecified site; H54.3 Unqualified visual loss, both eyes; F32.9 Major depressive disorder, single episode, unspecified; F41.9 Anxiety disorder, unspecified; R00.0 Tachycardia, unspecified; D73.5 Infarction of spleen; Z79.84 Long term (current) use of oral hypoglycemic drugs; Z79.2 Long term (current) use of antibiotics; Z79.01 Long term (current) use of anticoagulants; Z79.52 Long term (current) use of systemic steroids; Z83.3 Family history of diabetes mellitus; Z82.49 Family history of ischemic heart disease and other diseases of the circulatory system
CPT/HCPCS: 36415; 51702; 71045; 71260; 74160; 80053; 81000; 82010; 82805; 82947; 83605; 83615; 83735; 84100; 85007; 85025; 85027; 85045; 85055; 85379; 85384; 85610; 85730; 86022; 86141; 87040; 87088; 93005; 93306; 93970; 94640; 94660; 94760